=== PATIENT | female | born 1935 | race Caucasian/White ===

== ENCOUNTER 2016-09-14 11:23 | Inpatient (IN) | payer MEDICARE, OTHER ==
--- NOTE | 2016-09-14 12:15 | ER Document Report ---
ED General - General Stated Complaint: RESPIRATORY DISTRESS Mode of Arrival: Ambulatory Information source: Patient, Relative Notes: 81-year-old female presents with one week duration of productive cough and shortness of breath. Patient denies any other fevers or chills patient is a DO NOT RESUSCITATE TRAVEL OUTSIDE OF THE [place] IN LAST 30 DAYS: No - HPI Onset: Last week Onset/Duration: Persistent Quality of pain: Achy Severity: Mild Pain Level: 1 Associated symptoms: Productive cough, Shortness of breath Exacerbated by: Walking Relieved by: Denies Similar symptoms previously: No Recently seen / treated by doctor: No - Related Data Allergies/Adverse Reactions: No Known Allergies Allergy (Unverified 10/16/15 06:35) Past Medical History - Social History Smoking Status: Never Smoker Cigarette use (# per day): No Chew tobacco use (# tins/day): No Smoking Education Provided: No Family History: Reviewed & Not Pertinent - Past Medical History Cardiac Medical History: Reports: Hx Congestive Heart Failure Pulmonary Medical History: Reports: Hx COPD Endocrine Medical History: Reports: Hx Diabetes Mellitus Type 2 Malignancy Medical History: Reports: Hx Lung Cancer Past Surgical History: Reports: Hx Appendectomy, Hx Hysterectomy Review of Systems - Review of Systems Notes: REVIEW OF SYSTEMS: CONSTITUTIONAL : Denies fever, chills, or sweats. Denies recent illness. EENT: Denies eye, ear, throat, or mouth pain or symptoms. Denies nasal or sinus congestion or discharge. Denies throat, tongue, or mouth swelling or difficulty swallowing. CARDIOVASCULAR: Denies chest pain. Denies palpitations or racing or irregular heart beat. Denies ankle edema. RESPIRATORY: Admits to productive cough GASTROINTESTINAL: Denies abdominal pain or distention. Denies nausea, vomiting , or diarrhea. Denies blood in vomitus, stools, or per rectum. Denies black, tarry stools. Denies constipation. GENITOURINARY: Denies difficulty urinating, painful urination, burning, frequency, blood in urine, or discharge. FEMALE GENITOURINARY: Denies vaginal bleeding, heavy or abnormal periods, irregular periods. Denies vaginal discharge or odor. MUSCULOSKELETAL: Denies back or neck pain or stiffness. Denies joint pain or swelling. SKIN: Denies rash, lesions or sores. HEMATOLOGIC : Denies easy bruising or bleeding. LYMPHATIC: Denies swollen, enlarged glands. NEUROLOGICAL: Denies confusion or altered mental status. Denies passing out or loss of consciousness. Denies dizziness or lightheadedness. Denies headache. Denies weakness or paralysis or loss of use of either side. Denies problems with gait or speech. Denies sensory loss, numbness, or tingling. Denies seizures. PSYCHIATRIC: Denies anxiety or stress. Denies depression, suicidal ideation, or homicidal ideation. ALL OTHER SYSTEMS REVIEWED AND NEGATIVE. Dictation was performed using [employer] voice recognition software PHYSICAL EXAMINATION: GENERAL: Elderly coughing HEAD: Atraumatic, normocephalic. EYES: Pupils equal round and reactive to light, extraocular movements intact, conjunctiva are normal. ENT: Nares patent, oropharynx clear without exudates. Moist mucous membranes. NECK: Normal range of motion, supple without lymphadenopathy LUNGS: Coarse rhonchi all throughout HEART: Regular rate and rhythm without murmurs ABDOMEN: Soft, nontender, nondistended abdomen. No guarding, no rebound. No masses appreciated. Female : deferred Musculoskeletal: Normal range of motion, no pitting or edema. No cyanosis. NEUROLOGICAL: Cranial nerves grossly intact. Normal speech, normal gait. Normal sensory, motor exams PSYCH: Normal mood, normal affect. SKIN: Warm, Dry, normal turgor, no rashes or lesions noted. Physical Exam - Vital signs Vitals: Pulse Ox 97 09/14/16 11:35 Course - Re-evaluation Re-evalutation: 09/14/16 12:47xray does not notes pneumonia but patient symptomatically pneumonia , sepsis criteria 09/14/16 13:11 Antibiotics have been ordered patient will be admitted to hospital service - Vital Signs Vital signs: Temp Pulse Resp BP Pulse Ox 27 H 110/52 L 96 09/14/16 12:01 09/14/16 12:00 09/14/16 12:01 - Laboratory Result Diagrams: 09/14/16 12:00 09/14/16 12:00 Laboratory results interpreted by me: 09/14/16 09/14/16 09/14/16 12:00 12:00 12:00 WBC 17.1 H Hgb 11.0 L Hct 33.4 L MCV 74 L MCH 24.2 L RDW 18.1 H Seg Neuts % (Manual) 89 H Lymphocytes % (Manual) 7 L Abs Neuts (Manual) 15.2 H Sodium 136.7 L Chloride 97 L Glucose 232 H Total Bilirubin 1.8 H NT-Pro-B Natriuret Pep 2620 H Total Protein 5.6 L Albumin 3.0 L - Diagnostic Test Radiology reviewed: Image reviewed, Reports reviewed - EKG Interpretation by Me EKG shows normal: Sinus rhythm, [place], Intervals, QRS Complexes Rate: Tachycardia Critical Care Note - Critical Care Note Total time excluding time spent on procedures (mins): 33 Comments: minutes of critical care time spent in direct contact evaluating and reevaluating the patient, treating symptoms, reviewing labs and studies and speaking with family and consultants excluding any procedures Discharge - Discharge Clinical Impression: Shortness of breath Pneumonia Qualifiers: Pneumonia type: due to unspecified organism Laterality: bilateral Lung location : unspecified part of lung Qualified Code(s): J18.9 - Pneumonia, unspecified organism Sepsis Qualifiers: Sepsis type: sepsis due to unspecified organism Qualified Code(s): A41.9 - Sepsis, unspecified organism Condition: Stable Disposition: ADMITTED INPATIENT Admitting Provider: Hospitalist Unit Admitted: [facility]
[2016-09-14 12:26] LABS: HEMATOCRIT 33.4 % (36.0-47.0); HGB HCT DIFFERENCE -0.4; MEAN CORPUSCULAR HEMOGLOBIN 24.2 pg (27.0-33.4); MEAN CORPUSCULAR HGB CONC 32.9 g/dL (32.0-36.0); MEAN CORPUSCULAR VOLUME 74 fl (80-97); RED BLOOD COUNT 4.53 10^6/uL (3.72-5.28); RED CELL DISTRIBUTION WIDTH 18.1 % (11.5-14.0); WHITE BLOOD COUNT 17.1 10^3/uL (4.0-10.5)
[2016-09-14 12:35] LABS: ALANINE AMINOTRANSFERASE 28 U/L (9-52); ALKALINE PHOSPHATASE 86 U/L (38-126); ANION GAP 10 (5-19); ASPARTATE AMINO TRANSFERASE 18 U/L (14-36); BILIRUBIN,TOTAL 1.8 mg/dL (0.2-1.3); BLOOD UREA NITROGEN 19 mg/dL (7-20); CALCIUM 8.7 mg/dL (8.4-10.2); CARBON DIOXIDE 30 mmol/L (22-30); CHLORIDE 97 mmol/L (98-107); CREATINE KINASE 40 U/L (30-135); CREATININE RESULT 0.82 mg/dL (0.52-1.25); GLUCOSE 232 mg/dL (75-110); SODIUM 136.7 mmol/L (137-145); TOTAL PROTEIN 5.6 g/dL (6.3-8.2)
[2016-09-14] MEDS ORDERED: LEVOFLOXACIN 750 MG/D5W RTU 150 ML IV ONE (12:46)
[2016-09-14 12:47] LABS: CREATINE KINASE MB 2.1 ng/mL (<4.55); TROPONIN I 0.02 ng/mL
[2016-09-14] MEDS ORDERED: NORMAL SALINE 1000 ML 1,000 ML IV ONE (12:47)
--- NOTE | 2016-09-14 12:47 | EKG REPORT ---
SEVERITY:- BORDERLINE ECG - SINUS RHYTHM BORDERLINE RIGHT AXIS DEVIATION NONSPECIFIC ST-T CHANGES- ILATERAL LEADS : Confirmed by: Valerio Duarte MD 14-Sep-2016 12:46:32
[2016-09-14 12:49] LABS: ANISOCYTOSIS 2+; BASOPHILS % (MANUAL) 0 % (0-2); EOSINOPHILS % (MANUAL) 0 % (0-6); HYPOCHROMASIA SLIGHT; LYMPHOCYTES % (MANUAL) 7 % (13-45); MICROCYTOSIS 1+; TOTAL CELLS COUNTED 100; TOXIC GRANULATION 1+
[2016-09-14] MEDS ORDERED: IPRATROPIUM/ALBUTEROL 0.5-2.5 MG/3 ML AMPUL NEB ONE (13:10)
[2016-09-14 13:53] LABS: VENOUS BLOOD BASE EXCESS 3.5 mmol/L; VENOUS BLOOD HCO3 29.7 mmol/L (20-32); VENOUS BLOOD PCO2 52.8 mmHg (35-63); VENOUS BLOOD PH 7.37 (7.30-7.42)
[2016-09-14] MEDS ORDERED: LEVALBUTEROL HCL NEB 0.63 MG/3 ML AMPUL NEB PRN (16:38)
[2016-09-14] MEDS ORDERED: ONDANSETRON HCL 8 MG TABLET PO PRN (16:39)
[2016-09-14] MEDS ORDERED: ACETAMINOPHEN 325 MG TABLET PO PRN (16:39)
[2016-09-14] MEDS ORDERED: DEXTROSE 50%-WATER 25 GM/50 ML DISP.SYRIN IV PRN ×2 (16:41)
[2016-09-14] MEDS ORDERED: GLUCAGON,HUMAN RECOMB 1 MG INJ IM PRN (16:41)
[2016-09-14] MEDS ORDERED: DEXTROSE 40% GEL 15 GM TUBE PO PRN ×2 (16:41)
--- NOTE | 2016-09-14 16:46 | PDOC H&P ---
History of Present Illness Admission Date/PCP: 09/14/16 13:31 KD CISNEROS PA-C Patient complains of: Respiratory distress History of Present Illness: JATINDER RODRIGUEZ is a 81 year old female the past medical history of lung cancer that presented with one week duration of productive cough and shortness of breath. Patient denies any other fevers or chills patient is a DO NOT RESUSCITATE. Patient was found to have evidence of sepsis with white count, fever, tachypnea and evidence of a clinical pneumonia and therefore the patient was referred to the hospitalist remission and management. MEDICATIONS: The medications listed in this document may have been auto- populated from previous contact and may not been verified or reconciled. This may not be an accurate reflection of the patient's home medication(s); however, authors are unable to edit or delete the medications listed in this document as "home medications". Selected Entries 09/14/16 09/14/16 11:30 14:01 Temperature 99.2 F Respiratory 23 H Rate 09/14/16 12:00 WBC 17.1 H Past Medical History Cardiac Medical History: Reports: Congestive Heart Failure Pulmonary Medical History: Reports: Chronic Obstructive Pulmonary Disease (COPD) Endocrine Medical History: Reports: Diabetes Mellitus Type 2 Malignancy Medical History: Reports: Lung Cancer Past Surgical History Past Surgical History: Reports: Appendectomy, Hysterectomy Social History Information Source: Patient, Relative Occupation: Retired Lives with: Other - Assisted living Smoking Status: Never Smoker Frequency of Alcohol Use: None Hx Recreational Drug Use: No Drugs: None Hx Prescription Drug Abuse: No - Advance Directive Resuscitation Status: Do Not Resuscitate Surrogate healthcare decision maker:: Son Family History Family History: Reviewed & Not Pertinent, Malignancy Parental Family History Reviewed: Yes Children Family History Reviewed: Yes Sibling(s) Family History Reviewed.: Yes Medication/Allergy Home Medications: Acetaminophen [Tylenol] 650 mg PO Q4HP PRN 09/14/16 Albuterol Sulfate [Albuterol Sulfate 2.5mg/3 mL] 2.5 mg IH TID 09/14/16 Aspirin [Aspirin 81 mg Chewable Tablet] 81 mg PO DAILY 09/14/16 Atorvastatin Calcium 10 mg PO DAILY 09/14/16 Bisacodyl [Dulcolax 10 mg Supp.rect] 10 mg OR DAILYP PRN 09/14/16 Carvedilol [Coreg 3.125 mg Tablet] 3.125 mg PO Q12 09/14/16 Ergocalciferol (Vitamin D2) [Vitamin D2] 50,000 unit PO MO@1000 09/14/16 Furosemide [Lasix 20 mg Tablet] 20 mg PO DAILY 09/14/16 Guaifenesin 200 mg PO Q4HP PRN 09/14/16 Insulin Aspart Protam & Aspart [Novolog Mix 70-30 Vial] 20 units SQ ACSUPPER Insulin Aspart Protam & Aspart [Novolog Mix 70-30 Vial] 30 units SQ QAM Levofloxacin [Levaquin 500 mg Tablet] 500 mg PO DAILY 09/14/16 Levothyroxine Sodium [Synthroid 0.05 mg Tablet] 0.05 mg PO DAILY 09/14/16 Loperamide HCl [Imodium 2 mg Capsule] 4 mg PO PRN PRN MDD 16 MG/24 HOURS Lorazepam [Ativan 0.5 mg Tablet] 0.25 mg PO Q12HP PRN 09/14/16 Magnesium Chloride [Slow-Mag] 71.5 mg PO DAILY 09/14/16 Nystatin/Dexameth/Diphen [Magic Mouthwash] 5 ml PO ACHSP PRN 09/14/16 Omeprazole 20 mg PO DAILY 09/14/16 Ondansetron HCl [Zofran 8 mg Tablet] 8 mg PO Q8HP PRN 09/14/16 Prednisone 10 mg PO DAILY 09/14/16 Prednisone 20 mg PO DAILY 09/14/16 Sennosides [Senna] 2 tab PO DAILYP PRN 09/14/16 Sertraline HCl [Zoloft 50 mg Tablet] 50 mg PO QHS 09/14/16 Simethicone 80 mg PO Q6HP PRN 09/14/16 Sucralfate [Carafate 1 gm Tablet] 1 gm PO ACHS 09/14/16 Umeclidinium Brm/Vilanterol Tr [Anoro Ellipta 62.5-25 Mcg INH] 1 puff IH DAILY 09/14/16 Allergies/Adverse Reactions: No Known Allergies Allergy (Unverified 10/16/15 06:35) Review of Systems Constitutional: PRESENT: fatigue, fever(s), weakness. ABSENT: chills, headache( s), weight gain, weight loss Eyes: ABSENT: visual disturbances Ears: ABSENT: hearing changes Cardiovascular: ABSENT: chest pain, dyspnea on exertion, edema, orthropnea, palpitations Respiratory: PRESENT: cough, dyspnea, sputum. ABSENT: hemoptysis Gastrointestinal: ABSENT: abdominal pain, constipation, diarrhea, hematemesis, hematochezia, nausea, vomiting Genitourinary: ABSENT: dysuria, hematuria Musculoskeletal: ABSENT: joint swelling Integumentary: ABSENT: rash, wounds Neurological: ABSENT: abnormal gait, abnormal speech, confusion, dizziness, focal weakness, syncope Psychiatric: ABSENT: anxiety, depression, homidical ideation, suicidal ideation Endocrine: ABSENT: cold intolerance, heat intolerance, polydipsia, polyuria Hematologic/Lymphatic: ABSENT: easy bleeding, easy bruising Physical Exam Vital Signs: Temp Pulse Resp BP Pulse Ox 99.2 F 71 23 H 127/78 H 97 09/14/16 11:30 09/14/16 11:30 09/14/16 14:01 09/14/16 14:01 09/14/16 14:01 General appearance: PRESENT: no acute distress, cooperative, well-developed, well-nourished - Frail and chronically ill-appearing Head exam: PRESENT: atraumatic, normocephalic Eye exam: PRESENT: conjunctiva pink, EOMI, PERRLA. ABSENT: scleral icterus Ear exam: PRESENT: normal external ear exam Mouth exam: PRESENT: moist, tongue midline Neck exam: ABSENT: carotid bruit, JVD, lymphadenopathy, thyromegaly Respiratory exam: PRESENT: rhonchi. ABSENT: rales, wheezes Cardiovascular exam: PRESENT: RRR. ABSENT: diastolic murmur, rubs, systolic murmur Pulses: PRESENT: normal dorsalis pedis pul Vascular exam: PRESENT: normal capillary refill GI/Abdominal exam: PRESENT: normal bowel sounds, soft. ABSENT: distended, guarding, mass, organolmegaly, rebound, tenderness Rectal exam: PRESENT: deferred Extremities exam: PRESENT: full ROM. ABSENT: calf tenderness, clubbing, pedal edema Neurological exam: PRESENT: alert, awake, oriented to person, oriented to place , oriented to time, oriented to situation, CN II-XII grossly intact. ABSENT: motor sensory deficit Psychiatric exam: PRESENT: appropriate affect, normal mood. ABSENT: homicidal ideation, suicidal ideation Skin exam: PRESENT: dry, intact, warm. ABSENT: cyanosis, rash Results Laboratory Results: 09/14/16 13:40 VBG pH 7.37 VBG pCO2 52.8 VBG HCO3 29.7 VBG Base Excess 3.5 Impressions: Chest X-Ray 09/14/16 11:27 IMPRESSION: STABLE CHRONIC CHANGES ON THE LEFT. NO ACUTE RADIOGRAPHIC FINDING IN THE CHEST. Assessment & Plan - Diagnosis (1) Pneumonia Qualifiers: Pneumonia type: due to unspecified organism Laterality: bilateral Lung location: unspecified part of lung Qualified Code(s): J18.9 - Pneumonia , unspecified organism Is this a current diagnosis for this admission?: YesPlan: Will continue [place] Levaquin for now. Will obtain sputum specimen and follow. (2) Acute and chronic respiratory failure with hypoxia Is this a current diagnosis for this admission?: YesPlan: Continue supplemental O2 (3) Sepsis Qualifiers: Sepsis type: sepsis due to unspecified organism Qualified Code(s): A41.9 - Sepsis, unspecified organism Is this a current diagnosis for this admission?: YesPlan: No evidence of shock (4) History of lung cancer Is this a current diagnosis for this admission?: YesPlan: If the patient's symptoms do not improve significantly may re-stage. The patient has completed treatment and is not to follow-up with oncology for 3 months. Her oncologist is Dr. De La Cruz in [place]. (5) COPD exacerbation Is this a current diagnosis for this admission?: YesPlan: Will continue nebs for now (6) Do not resuscitate Is this a current diagnosis for this admission?: YesPlan: DNR/DNI (7) DVT prophylaxis Is this a current diagnosis for this admission?: YesPlan: Continue subcutaneous heparin - Time Time Spent with patient: on this followup including assessment, plan, physical examination, and patient education is 35 minutes. Time Spent: 50 to 70 Minutes Disposition: The patient is a DO NOT RESUSCITATE DO NOT INTUBATE. Pending patient's symptomatology and diagnostic findings will reevaluate as needed.
[2016-09-14] MEDS: HEPARIN SOD (PORCINE) 5,000 UNIT/ML 1 ML SYRINGE SUBCUT SCH ×2 (16:48→22:07)
[2016-09-14] MEDS: LEVALBUTEROL HCL NEB 1.25 MG/3 ML AMPUL NEB SCH (20:26)
[2016-09-14] MEDS: SERTRALINE HCL 50 MG TABLET PO SCH (22:06)
[2016-09-14] MEDS: CARVEDILOL 3.125 MG TABLET PO SCH (22:06)
[2016-09-14] MEDS: GUAIFENESIN 600 MG TABLET.SA PO SCH (22:07)
[2016-09-14] MEDS: INSULIN LISPRO 100 UNIT/ML 3 ML VIAL SUBCUT PRN (22:07)
[2016-09-15] MEDS: HEPARIN SOD (PORCINE) 5,000 UNIT/ML 1 ML SYRINGE SUBCUT SCH ×3 (05:18→21:03)
[2016-09-15 06:06] LABS: HEMATOCRIT 35.1 % (36.0-47.0); HEMOGLOBIN 11.3 g/dL (12.0-15.5); HGB HCT DIFFERENCE -1.2; MEAN CORPUSCULAR HEMOGLOBIN 23.7 pg (27.0-33.4); MEAN CORPUSCULAR HGB CONC 32.2 g/dL (32.0-36.0); MEAN CORPUSCULAR VOLUME 74 fl (80-97); RED BLOOD COUNT 4.77 10^6/uL (3.72-5.28); RED CELL DISTRIBUTION WIDTH 17.9 % (11.5-14.0); WHITE BLOOD COUNT 12.6 10^3/uL (4.0-10.5)
[2016-09-15 06:26] LABS: APPEARANCE,URINE SLIGHTLY-CLOUDY; BILIRUBIN,URINE NEGATIVE (NEGATIVE); GLUCOSE, URINE >=500 mg/dL (NEGATIVE); KETONES,URINE TRACE mg/dL (NEGATIVE); LEUKOCYTE ESTERASE,URINE NEGATIVE (NEGATIVE); NITRITE,URINE NEGATIVE (NEGATIVE); PROTEIN,URINE 30 mg/dL (NEGATIVE); URINE SPECIFIC GRAVITY 1.025; UROBILINOGEN,URINE NEGATIVE mg/dL (<2.0)
[2016-09-15] MEDS: INSULIN LISPRO 100 UNIT/ML 3 ML VIAL SUBCUT PRN ×3 (07:55→22:02)
[2016-09-15] MEDS: HUM INSULIN NPH/REG INSULIN HM 100 UNIT/1 ML 3 ML SUBCUT SCH ×2 (07:55→16:33)
[2016-09-15] MEDS ORDERED: INSULIN ASPART PROTAM SQ SCH ×2 (08:00→16:00)
[2016-09-15] MEDS ORDERED: ASPART SQ SCH ×2 (08:00→16:00)
[2016-09-15] MEDS ORDERED: [UNRECOGNIZED DRUG - OTHER] SQ SCH (08:00)
[2016-09-15] MEDS: LEVALBUTEROL HCL NEB 1.25 MG/3 ML AMPUL NEB SCH ×3 (08:10→19:31)
[2016-09-15] MEDS: CARVEDILOL 3.125 MG TABLET PO SCH ×2 (10:20→21:04)
[2016-09-15] MEDS: LANSOPRAZOLE 15 MG TAB.RAP.DR PO SCH (10:20)
[2016-09-15] MEDS: GUAIFENESIN 600 MG TABLET.SA PO SCH ×2 (10:20→21:04)
[2016-09-15] MEDS: LEVOTHYROXINE SODIUM 0.05 MG TABLET PO SCH (10:20)
[2016-09-15] MEDS: ASPIRIN 81 MG TABLET, CHEWABLE PO SCH (10:21)
[2016-09-15] MEDS: LEVOFLOXACIN 750 MG/D5W RTU 150 ML IV SCH (10:21)
[2016-09-15] MEDS: FUROSEMIDE 20 MG TABLET PO SCH (10:21)
--- NOTE | 2016-09-15 11:23 | PDOC PROGRESS REPORT ---
Subjective Progress Note for:: 09/15/16 Subjective:: The patient is currently lying in bed. Still admits to dyspnea at rest although the patient is able to fully complete sentences. The patient has had a strong cough and has been producing white sputum. The patient denies any nausea, vomiting, diarrhea, dizziness, chest pain, heart palpitations, fevers, or chills. The patient has remained afebrile. Blood pressures have been in a good range. The patient voices no other concerns at this time. Review of systems: The rest of the review of systems is negative. Physical Exam Vital Signs: Temp Pulse Resp BP Pulse Ox 97.6 F 74 16 134/51 H 92 09/15/16 07:23 09/15/16 08:12 09/15/16 08:12 09/15/16 07:23 09/15/16 08:12 Intake & Output 09/13/16 09/14/16 09/15/16 23:59 23:59 23:59 Intake Total 322 Output Total 300 Balance 22 Weight 64.8 kg 64.2 kg General appearance: PRESENT: no acute distress, cooperative, well-developed, well-nourished - Frail and chronically ill-appearing Head exam: PRESENT: atraumatic, normocephalic Eye exam: PRESENT: conjunctiva pink, EOMI, PERRLA. ABSENT: scleral icterus Ear exam: PRESENT: normal external ear exam Mouth exam: PRESENT: moist, tongue midline Neck exam: ABSENT: carotid bruit, JVD, lymphadenopathy, thyromegaly Respiratory exam: PRESENT: rhonchi, expiratory wheezes. ABSENT: rales, wheezes Cardiovascular exam: PRESENT: RRR. ABSENT: diastolic murmur, rubs, systolic murmur Pulses: PRESENT: normal dorsalis pedis pul Vascular exam: PRESENT: normal capillary refill GI/Abdominal exam: PRESENT: normal bowel sounds, soft. ABSENT: distended, guarding, mass, organolmegaly, rebound, tenderness Rectal exam: PRESENT: deferred Extremities exam: PRESENT: full ROM. ABSENT: calf tenderness, clubbing, pedal edema Neurological exam: PRESENT: alert, awake, oriented to person, oriented to place , oriented to time, oriented to situation, CN II-XII grossly intact. ABSENT: motor sensory deficit Psychiatric exam: PRESENT: appropriate affect, normal mood. ABSENT: homicidal ideation, suicidal ideation Skin exam: PRESENT: dry, intact, warm. ABSENT: cyanosis, rash Results Laboratory Results: 09/15/16 05:15 09/14/16 09/15/16 09/15/16 13:40 05:15 05:45 WBC 12.6 H RBC 4.77 Hgb 11.3 L Hct 35.1 L MCV 74 L MCH 23.7 L MCHC 32.2 RDW 17.9 H Plt Count 198 VBG pH 7.37 VBG pCO2 52.8 VBG HCO3 29.7 VBG Base Excess 3.5 Urine Color YELLOW Urine Appearance SLIGHTLY-CLOUDY Urine pH 5.0 Ur Specific [place] 1.025 Urine Protein 30 H Urine Glucose (UA) >=500 H Urine Ketones TRACE H Urine Blood NEGATIVE Urine Nitrite NEGATIVE Ur Leukocyte Esterase NEGATIVE Urine WBC (Auto) 1 Urine RBC (Auto) 1 Impressions: Chest X-Ray 09/14/16 11:27 IMPRESSION: STABLE CHRONIC CHANGES ON THE LEFT. NO ACUTE RADIOGRAPHIC FINDING IN THE CHEST. Assessment & Plan - Diagnosis (1) Pneumonia Qualifiers: Pneumonia type: due to unspecified organism Laterality: bilateral Lung location: unspecified part of lung Qualified Code(s): J18.9 - Pneumonia , unspecified organism Is this a current diagnosis for this admission?: YesPlan: Will continue Levaquin for now. Awaiting sputum specimen and follow. (2) Acute and chronic respiratory failure with hypoxia Is this a current diagnosis for this admission?: YesPlan: Continue supplemental O2 (3) Sepsis Qualifiers: Sepsis type: sepsis due to unspecified organism Qualified Code(s): A41.9 - Sepsis, unspecified organism Is this a current diagnosis for this admission?: YesPlan: No evidence of shock (4) History of lung cancer Is this a current diagnosis for this admission?: YesPlan: If the patient's symptoms do not improve significantly may re-stage. The patient has completed treatment and is not to follow-up with oncology for 3 months. Her oncologist is Dr. De La Cruz in [place]. (5) COPD exacerbation Is this a current diagnosis for this admission?: YesPlan: Will continue nebs for now. Given the patient's wheezing will add steroids. (6) Do not resuscitate Is this a current diagnosis for this admission?: YesPlan: DNR/DNI (7) DVT prophylaxis Is this a current diagnosis for this admission?: YesPlan: Continue subcutaneous heparin - Time Time Spent with patient: on this followup including assessment, plan, physical examination, and patient education is 25 minutes. Time Spent with patient: 25-34 minutes Anticipated discharge: Other Within: within 48 hours Disposition: The patient is a DO NOT RESUSCITATE DO NOT INTUBATE. Pending patient's symptomatology and diagnostic findings will reevaluate as needed.
[2016-09-15] MEDS ORDERED: METHYLPREDNISOLONE INJ 40 MG/1 ML SDV IV ONE (12:00)
[2016-09-15] MEDS ORDERED: [UNRECOGNIZED DRUG - OTHER] SQ SCH (16:00)
[2016-09-15] MEDS: LACTULOSE SYRUP 20 GM/30 ML UDCUP PO SCH ×3 (16:30→18:45)
[2016-09-15] MEDS ORDERED: METHYLPREDNISOLONE INJ 40 MG/1 ML SDV ONE (16:32)
[2016-09-15] MEDS: ATORVASTATIN CALCIUM 10 MG TABLET PO SCH (21:03)
[2016-09-15] MEDS: SERTRALINE HCL 50 MG TABLET PO SCH (21:04)
[2016-09-15] MEDS: METHYLPREDNISOLONE INJ 40 MG/1 ML SDV IV SCH (21:05)
[2016-09-15] MEDS: LORAZEPAM 0.5 MG TABLET PO PRN (22:03)
[2016-09-16] MEDS: BENZONATATE 100 MG CAPSULE PO PRN ×3 (01:19→17:45)
[2016-09-16] MEDS: METHYLPREDNISOLONE INJ 40 MG/1 ML SDV IV SCH ×3 (05:03→22:03)
[2016-09-16] MEDS: HEPARIN SOD (PORCINE) 5,000 UNIT/ML 1 ML SYRINGE SUBCUT SCH ×3 (05:03→21:56)
[2016-09-16] MEDS: LEVALBUTEROL HCL NEB 1.25 MG/3 ML AMPUL NEB SCH ×3 (08:17→20:40)
[2016-09-16] MEDS: LANSOPRAZOLE 15 MG TAB.RAP.DR PO SCH (08:33)
[2016-09-16] MEDS: FUROSEMIDE 20 MG TABLET PO SCH (08:33)
[2016-09-16] MEDS: GUAIFENESIN 600 MG TABLET.SA PO SCH ×2 (08:34→22:04)
[2016-09-16] MEDS: ASPIRIN 81 MG TABLET, CHEWABLE PO SCH (08:34)
[2016-09-16] MEDS: CARVEDILOL 3.125 MG TABLET PO SCH ×2 (08:34→22:04)
[2016-09-16] MEDS: LEVOTHYROXINE SODIUM 0.05 MG TABLET PO SCH (08:34)
[2016-09-16] MEDS: HUM INSULIN NPH/REG INSULIN HM 100 UNIT/1 ML 3 ML SUBCUT SCH ×2 (08:35→17:45)
[2016-09-16] MEDS: INSULIN LISPRO 100 UNIT/ML 3 ML VIAL SUBCUT PRN ×4 (08:35→22:00)
[2016-09-16] MEDS: LEVOFLOXACIN 750 MG/D5W RTU 150 ML IV SCH (08:35)
[2016-09-16] MEDS ORDERED: VANCOMYCIN HCL 0 MG in DEXTROSE 5%-WATER 250 ML IV NR (11:15)
--- NOTE | 2016-09-16 11:33 | PDOC PROGRESS REPORT ---
Subjective Progress Note for:: 09/16/16 Subjective:: The patient is currently lying in bed. The patient is dyspneic and not completely able to complete sentences. He does not appear any better than when she came in. The patient has had a strong cough and has been producing white sputum. Patient describes herself as feeling miserable. The patient denies any nausea, vomiting, diarrhea, dizziness, chest pain, heart palpitations, fevers, or chills. The patient has remained afebrile. Blood pressures have been in a good range. The patient voices no other concerns at this time. Review of systems: The rest of the review of systems is negative. Physical Exam Vital Signs: Temp Pulse Resp BP Pulse Ox 98.1 F 69 18 135/58 H 96 09/16/16 07:41 09/16/16 08:17 09/16/16 08:17 09/16/16 07:41 09/16/16 08:17 Intake & Output 09/14/16 09/15/16 09/16/16 23:59 23:59 23:59 Intake Total 1062 300 Output Total 300 300 Balance 762 0 Weight 64.8 kg 64.2 kg 64.3 kg General appearance: PRESENT: no acute distress, cooperative, well-developed, well-nourished - Frail and chronically ill-appearing Head exam: PRESENT: atraumatic, normocephalic Eye exam: PRESENT: conjunctiva pink, EOMI, PERRLA. ABSENT: scleral icterus Ear exam: PRESENT: normal external ear exam Mouth exam: PRESENT: moist, tongue midline Neck exam: ABSENT: carotid bruit, JVD, lymphadenopathy, thyromegaly Respiratory exam: PRESENT: rhonchi, expiratory wheezes. ABSENT: rales, wheezes Cardiovascular exam: PRESENT: RRR. ABSENT: diastolic murmur, rubs, systolic murmur Pulses: PRESENT: normal dorsalis pedis pul Vascular exam: PRESENT: normal capillary refill GI/Abdominal exam: PRESENT: normal bowel sounds, soft. ABSENT: distended, guarding, mass, organolmegaly, rebound, tenderness Rectal exam: PRESENT: deferred Extremities exam: PRESENT: full ROM. ABSENT: calf tenderness, clubbing, pedal edema Neurological exam: PRESENT: alert, awake, oriented to person, oriented to place , oriented to time, oriented to situation, CN II-XII grossly intact. ABSENT: motor sensory deficit Psychiatric exam: PRESENT: appropriate affect, normal mood. ABSENT: homicidal ideation, suicidal ideation Skin exam: PRESENT: dry, intact, warm. ABSENT: cyanosis, rash Results Laboratory Results: 09/15/16 05:15 Impressions: Chest X-Ray 09/14/16 11:27 IMPRESSION: STABLE CHRONIC CHANGES ON THE LEFT. NO ACUTE RADIOGRAPHIC FINDING IN THE CHEST. Assessment & Plan - Diagnosis (1) Pneumonia Qualifiers: Pneumonia type: due to unspecified organism Laterality: bilateral Lung location: unspecified part of lung Qualified Code(s): J18.9 - Pneumonia , unspecified organism Is this a current diagnosis for this admission?: YesPlan: Given the patient's persistent symptoms Will broaden antibiotic coverage the patient is at high risk given that she resides in a facility. Additionally the patient may have a postobstructive process given her lung cancer. Will restage the patient with chest CT and follow. (2) Acute and chronic respiratory failure with hypoxia Is this a current diagnosis for this admission?: YesPlan: Continue supplemental O2 (3) Sepsis Qualifiers: Sepsis type: sepsis due to unspecified organism Qualified Code(s): A41.9 - Sepsis, unspecified organism Is this a current diagnosis for this admission?: YesPlan: No evidence of shock (4) History of lung cancer Is this a current diagnosis for this admission?: YesPlan: The patient has completed treatment and is not to follow-up with oncology for 3 months. Her oncologist is Dr. De La Cruz in [place]. (5) COPD exacerbation Is this a current diagnosis for this admission?: YesPlan: Will continue nebs for now. Given the patient's wheezing will continue steroids. (6) Do not resuscitate Is this a current diagnosis for this admission?: YesPlan: DNR/DNI (7) DVT prophylaxis Is this a current diagnosis for this admission?: YesPlan: Continue subcutaneous heparin - Time Time Spent with patient: on this followup including assessment, plan, physical examination, and patient education is 25 minutes. Time Spent with patient: 25-34 minutes Medications reviewed and adjusted accordingly: Yes Anticipated discharge: Other Within: within 72 hours Disposition: The patient is a DO NOT RESUSCITATE DO NOT INTUBATE. Pending patient's symptomatology and diagnostic findings will reevaluate as needed.
[2016-09-16] MEDS: PIPERACILLIN SODIUM/TAZOBACTAM 4.5 GM in NORMAL SALINE 100 ML IV SCH ×3 (13:30→23:14)
[2016-09-16] MEDS: VANCOMYCIN HCL 1,000 MG in DEXTROSE 5%-WATER 250 ML IV SCH (18:45)
[2016-09-16] MEDS: ATORVASTATIN CALCIUM 10 MG TABLET PO SCH (22:04)
[2016-09-16] MEDS: SERTRALINE HCL 50 MG TABLET PO SCH (22:04)
[2016-09-17] MEDS: HEPARIN SOD (PORCINE) 5,000 UNIT/ML 1 ML SYRINGE SUBCUT SCH ×3 (05:17→21:22)
[2016-09-17] MEDS: METHYLPREDNISOLONE INJ 40 MG/1 ML SDV IV SCH (05:18)
[2016-09-17] MEDS: PIPERACILLIN SODIUM/TAZOBACTAM 4.5 GM in NORMAL SALINE 100 ML IV SCH ×4 (05:18→23:53)
[2016-09-17 05:48] LABS: HEMATOCRIT 34.2 % (36.0-47.0); HEMOGLOBIN 11.3 g/dL (12.0-15.5); HGB HCT DIFFERENCE -0.3; MEAN CORPUSCULAR HEMOGLOBIN 24.7 pg (27.0-33.4); MEAN CORPUSCULAR HGB CONC 32.9 g/dL (32.0-36.0); MEAN CORPUSCULAR VOLUME 75 fl (80-97); RED BLOOD COUNT 4.57 10^6/uL (3.72-5.28); RED CELL DISTRIBUTION WIDTH 17.5 % (11.5-14.0)
[2016-09-17 06:10] LABS: ANION GAP 10 (5-19); BLOOD UREA NITROGEN 27 mg/dL (7-20); CALCIUM 9.1 mg/dL (8.4-10.2); CARBON DIOXIDE 30 mmol/L (22-30); CHLORIDE 102 mmol/L (98-107); CREATININE RESULT 0.96 mg/dL (0.52-1.25); GLUCOSE 257 mg/dL (75-110); MAGNESIUM 2.2 mg/dL (1.6-2.3); POTASSIUM 4.5 mmol/L (3.6-5.0)
[2016-09-17] MEDS: LEVALBUTEROL HCL NEB 1.25 MG/3 ML AMPUL NEB SCH ×3 (08:02→21:49)
[2016-09-17] MEDS: ASPIRIN 81 MG TABLET, CHEWABLE PO SCH (09:56)
[2016-09-17] MEDS: CARVEDILOL 3.125 MG TABLET PO SCH ×2 (09:56→21:21)
[2016-09-17] MEDS: LEVOTHYROXINE SODIUM 0.05 MG TABLET PO SCH (09:56)
[2016-09-17] MEDS: FUROSEMIDE 20 MG TABLET PO SCH (09:57)
[2016-09-17] MEDS: GUAIFENESIN 600 MG TABLET.SA PO SCH ×2 (09:57→21:21)
[2016-09-17] MEDS: LANSOPRAZOLE 15 MG TAB.RAP.DR PO SCH (09:57)
[2016-09-17] MEDS: HUM INSULIN NPH/REG INSULIN HM 100 UNIT/1 ML 3 ML SUBCUT SCH ×2 (09:57→16:54)
[2016-09-17] MEDS: INSULIN LISPRO 100 UNIT/ML 3 ML VIAL SUBCUT PRN ×4 (09:58→21:28)
--- NOTE | 2016-09-17 13:35 | PDOC PROGRESS REPORT ---
Subjective Progress Note for:: 09/17/16 Subjective:: The patient is currently lying in bed. The patient is dyspneic and is now able to complete sentences. The patient states that she does feel better than when she came in. The patient has had a strong cough and has been producing white sputum. Overall minor improvements. The patient denies any nausea, vomiting, diarrhea, dizziness, chest pain, heart palpitations, fevers, or chills. The patient has remained afebrile. Blood pressures have been in a good range. The patient voices no other concerns at this time. Review of systems: The rest of the review of systems is negative. Physical Exam Vital Signs: Temp Pulse Resp BP Pulse Ox 97.4 F 65 18 155/63 H 96 09/17/16 07:33 09/17/16 08:02 09/17/16 08:02 09/17/16 07:33 09/17/16 08:02 Intake & Output 09/15/16 09/16/16 09/17/16 23:59 23:59 23:59 Intake Total 1062 2177 1131 Output Total 932 244 1283 Balance 762 1477 -269 Weight 64.2 kg 64.3 kg 65.2 kg General appearance: PRESENT: no acute distress, cooperative, well-developed, well-nourished - Frail and chronically ill-appearing Head exam: PRESENT: atraumatic, normocephalic Eye exam: PRESENT: conjunctiva pink, EOMI, PERRLA. ABSENT: scleral icterus Ear exam: PRESENT: normal external ear exam Mouth exam: PRESENT: moist, tongue midline Neck exam: ABSENT: carotid bruit, JVD, lymphadenopathy, thyromegaly Respiratory exam: PRESENT: rhonchi, expiratory wheezes. ABSENT: rales, wheezes Cardiovascular exam: PRESENT: RRR. ABSENT: diastolic murmur, rubs, systolic murmur Pulses: PRESENT: normal dorsalis pedis pul Vascular exam: PRESENT: normal capillary refill GI/Abdominal exam: PRESENT: normal bowel sounds, soft. ABSENT: distended, guarding, mass, organolmegaly, rebound, tenderness Rectal exam: PRESENT: deferred Extremities exam: PRESENT: full ROM. ABSENT: calf tenderness, clubbing, pedal edema Neurological exam: PRESENT: alert, awake, oriented to person, oriented to place , oriented to time, oriented to situation, CN II-XII grossly intact. ABSENT: motor sensory deficit Psychiatric exam: PRESENT: appropriate affect, normal mood. ABSENT: homicidal ideation, suicidal ideation Skin exam: PRESENT: dry, intact, warm. ABSENT: cyanosis, rash Results Laboratory Results: 09/17/16 04:54 09/17/16 04:54 09/17/16 09/17/16 04:54 04:54 WBC 11.0 H RBC 4.57 Hgb 11.3 L Hct 34.2 L MCV 75 L MCH 24.7 L MCHC 32.9 RDW 17.5 H Plt Count 227 Sodium 142.0 Potassium 4.5 Chloride 102 Carbon Dioxide 30 Anion Gap 10 BUN 27 H Creatinine 0.96 Est GFR ( Amer) > 60 Est GFR (Non-Af Amer) 56 L Glucose 257 H Calcium 9.1 Magnesium 2.2 09/15/16 05:38 Sputum Gram Stain - Final 09/15/16 05:38 Sputum Sputum Culture - Final NORMAL JEANNA Impressions: Chest CT 09/16/16 00:00 IMPRESSION: STABLE ATELECTATIC CHANGE/ SCARRING INVOLVING THE LEFT HILUM/ LUNG PRESUMABLY REPRESENTS POST TREATMENT CHANGE FOR LUNG MALIGNANCY. THERE HAS BEEN SLIGHT INTERVAL INCREASE IN SIZE OF PATIENT'S SMALL LEFT PLEURAL EFFUSION. INTERVAL IMPROVEMENT OF RIGHT-SIDED PULMONARY NODULES MAY REPRESENT RESOLVING INFECTIOUS/ INFLAMMATORY PROCESS OR RESPONSE OF METASTATIC DISEASE TO THERAPY. CORRELATE CLINICALLY. Chest X-Ray 09/17/16 06:00 IMPRESSION: INCREASED VOLUME LOSS ON THE LEFT WITH INCREASED AIRSPACE OPACITY LEFT LUNG BASE SUGGESTIVE OF ATELECTATIC LUNG. Assessment & Plan - Diagnosis (1) Pneumonia Qualifiers: Pneumonia type: due to unspecified organism Laterality: bilateral Lung location: unspecified part of lung Qualified Code(s): J18.9 - Pneumonia , unspecified organism Is this a current diagnosis for this admission?: YesPlan: Given the patient's persistent symptoms broadened antibiotic coverage given the patient is at high risk due to residing in a facility. Additionally the patient may have a postobstructive process given her lung cancer. Repeat chest CT appears stable. (2) Acute and chronic respiratory failure with hypoxia Is this a current diagnosis for this admission?: YesPlan: Continue supplemental O2 (3) Sepsis Qualifiers: Sepsis type: sepsis due to unspecified organism Qualified Code(s): A41.9 - Sepsis, unspecified organism Is this a current diagnosis for this admission?: YesPlan: No evidence of shock (4) History of lung cancer Is this a current diagnosis for this admission?: YesPlan: The patient has completed treatment and is to follow-up with oncology for 3 months. Her oncologist is Dr. De La Cruz in [place]. (5) COPD exacerbation Is this a current diagnosis for this admission?: YesPlan: Will continue nebs for now. Given the patient's wheezing will continue steroids will begin to taper. (6) Do not resuscitate Is this a current diagnosis for this admission?: YesPlan: DNR/DNI (7) DVT prophylaxis Is this a current diagnosis for this admission?: YesPlan: Continue subcutaneous heparin - Time Time Spent with patient: on this followup including assessment, plan, physical examination, and patient education is 25 minutes. Time Spent with patient: 25-34 minutes Medications reviewed and adjusted accordingly: Yes Anticipated discharge: Home Within: within 24 hours Disposition: The patient is a DO NOT RESUSCITATE DO NOT INTUBATE. Pending patient's symptomatology and diagnostic findings will reevaluate as needed.
[2016-09-17] MEDS: PREDNISONE 20 MG TABLET PO SCH (17:20)
[2016-09-17] MEDS: VANCOMYCIN HCL 1,000 MG in DEXTROSE 5%-WATER 250 ML IV SCH (18:16)
[2016-09-17] MEDS: SERTRALINE HCL 50 MG TABLET PO SCH (21:21)
[2016-09-17] MEDS: ATORVASTATIN CALCIUM 10 MG TABLET PO SCH (21:22)
[2016-09-18] MEDS: HEPARIN SOD (PORCINE) 5,000 UNIT/ML 1 ML SYRINGE SUBCUT SCH ×3 (06:16→22:02)
[2016-09-18] MEDS: BENZONATATE 100 MG CAPSULE PO PRN (06:16)
[2016-09-18] MEDS: PIPERACILLIN SODIUM/TAZOBACTAM 4.5 GM in NORMAL SALINE 100 ML IV SCH ×4 (06:18→23:27)
[2016-09-18] MEDS: HUM INSULIN NPH/REG INSULIN HM 100 UNIT/1 ML 3 ML SUBCUT SCH ×2 (07:52→16:36)
[2016-09-18] MEDS: LEVALBUTEROL HCL NEB 1.25 MG/3 ML AMPUL NEB SCH ×3 (08:46→19:42)
[2016-09-18] MEDS: LEVOTHYROXINE SODIUM 0.05 MG TABLET PO SCH (09:23)
[2016-09-18] MEDS: PREDNISONE 20 MG TABLET PO SCH ×2 (09:23→17:09)
[2016-09-18] MEDS: ASPIRIN 81 MG TABLET, CHEWABLE PO SCH (09:24)
[2016-09-18] MEDS: CARVEDILOL 3.125 MG TABLET PO SCH ×2 (09:24→22:01)
[2016-09-18] MEDS: LANSOPRAZOLE 15 MG TAB.RAP.DR PO SCH (09:24)
[2016-09-18] MEDS: GUAIFENESIN 600 MG TABLET.SA PO SCH ×2 (09:24→21:59)
[2016-09-18] MEDS: FUROSEMIDE 20 MG TABLET PO SCH (09:25)
[2016-09-18] MEDS ORDERED: ERGOCALCIFEROL (VITAMIN D2) 50000 UNIT (1.25 MG) CAPSULE PO SCH ×2 (10:00)
--- NOTE | 2016-09-18 10:57 | PDOC PROGRESS REPORT ---
Subjective Progress Note for:: 09/18/16 Subjective:: The patient is currently lying in bed. Overall the patient's symptoms have improved in comparison to yesterday. Dyspnea is limited only to activity. The patient denies any nausea, vomiting, diarrhea, dizziness, chest pain, heart palpitations, fevers, or chills. The patient is still coughing up copious amounts of sputum. The patient has remained afebrile. Blood pressures have been in a good range. The patient voices no other concerns at this time. Review of systems: The rest of the review of systems is negative. Physical Exam Vital Signs: Temp Pulse Resp BP Pulse Ox 97.7 F 71 16 147/44 H 96 09/18/16 07:39 09/18/16 08:46 09/18/16 08:46 09/18/16 07:39 09/18/16 08:46 Intake & Output 09/16/16 09/17/16 09/18/16 23:59 23:59 23:59 Intake Total 2177 2113 665 Output Total 700 1950 350 Balance 1477 163 315 Weight 64.3 kg 65.2 kg 62.2 kg General appearance: PRESENT: no acute distress, cooperative, well-developed, well-nourished - Frail and chronically ill-appearing Head exam: PRESENT: atraumatic, normocephalic Eye exam: PRESENT: conjunctiva pink, EOMI, PERRLA. ABSENT: scleral icterus Ear exam: PRESENT: normal external ear exam Mouth exam: PRESENT: moist, tongue midline Neck exam: ABSENT: carotid bruit, JVD, lymphadenopathy, thyromegaly Respiratory exam: PRESENT: rhonchi, expiratory wheezes both have improved. ABSENT: rales, wheezes Cardiovascular exam: PRESENT: RRR. ABSENT: diastolic murmur, rubs, systolic murmur Pulses: PRESENT: normal dorsalis pedis pul Vascular exam: PRESENT: normal capillary refill GI/Abdominal exam: PRESENT: normal bowel sounds, soft. ABSENT: distended, guarding, mass, organolmegaly, rebound, tenderness Rectal exam: PRESENT: deferred Extremities exam: PRESENT: full ROM. ABSENT: calf tenderness, clubbing, pedal edema Neurological exam: PRESENT: alert, awake, oriented to person, oriented to place , oriented to time, oriented to situation, CN II-XII grossly intact. ABSENT: motor sensory deficit Psychiatric exam: PRESENT: appropriate affect, normal mood. ABSENT: homicidal ideation, suicidal ideation Skin exam: PRESENT: dry, intact, warm. ABSENT: cyanosis, rash Results Laboratory Results: 09/17/16 04:54 09/17/16 04:54 09/15/16 05:38 Sputum Gram Stain - Final 09/15/16 05:38 Sputum Sputum Culture - Final NORMAL JEANNA Impressions: Chest CT 09/16/16 00:00 IMPRESSION: STABLE ATELECTATIC CHANGE/ SCARRING INVOLVING THE LEFT HILUM/ LUNG PRESUMABLY REPRESENTS POST TREATMENT CHANGE FOR LUNG MALIGNANCY. THERE HAS BEEN SLIGHT INTERVAL INCREASE IN SIZE OF PATIENT'S SMALL LEFT PLEURAL EFFUSION. INTERVAL IMPROVEMENT OF RIGHT-SIDED PULMONARY NODULES MAY REPRESENT RESOLVING INFECTIOUS/ INFLAMMATORY PROCESS OR RESPONSE OF METASTATIC DISEASE TO THERAPY. CORRELATE CLINICALLY. Chest X-Ray 09/17/16 06:00 IMPRESSION: INCREASED VOLUME LOSS ON THE LEFT WITH INCREASED AIRSPACE OPACITY LEFT LUNG BASE SUGGESTIVE OF ATELECTATIC LUNG. Assessment & Plan - Diagnosis (1) Pneumonia Qualifiers: Pneumonia type: due to unspecified organism Laterality: bilateral Lung location: unspecified part of lung Qualified Code(s): J18.9 - Pneumonia, unspecified organism Is this a current diagnosis for this admission?: YesPlan: Overall the symptoms have improved but only after the expansion of antibiotic coverage. Will give yet another 24 hours of current IV antibiotic coverage. The patient resides in a facility and is at high risk given a potential postobstructive process as well. The patient's sputum specimen was unremarkable however she had received antibiotics prior to this being obtained. 09/14/16 13:32 Oxygen Nasal Cannula 2 lpm 09/14/16 16:39 Nebulizer Therapy Routine [RESPCARE] [id number] 09/14/16 16:41 Benzonatate [Tessalon Perles 100 mg Capsule] 100 mg PO Q8HP PRN PEP Device(PositiveExpiratory) [RESPCARE] [id number] 09/14/16 22:00 Guaifenesin [Mucinex Sr 600 mg Tablet.sa] 1,200 mg PO Q12 09/16/16 12:00 Piperacillin Sodium/Tazobactam [Zosyn Inj 4.5 gm Vial] 4.5 gm Normal Saline [ NaCl 0.9% 100 ml IV Soln] 100 ml IV Q6 09/16/16 18:00 Vancomycin HCl [Vancocin Inj 1000 mg Vial] 1,000 mg Dextrose 5%-Water [D5w 250 ml IV Soln] 250 ml IV QPM (2) Acute and chronic respiratory failure with hypoxia Is this a current diagnosis for this admission?: YesPlan: Continue supplemental O2 09/18/16 10:48 Prednisone [Deltasone 20 mg Tablet] 20 mg PO BID 09/14/16 16:38 Levalbuterol HCl [Xopenex Neb 0.63 mg/3 ml Ampul] 0.63 mg NEB [id number] PRN 09/14/16 20:00 Levalbuterol HCl [Xopenex Neb 1.25 mg/3 ml Ampul] 1.25 mg NEB [id number] (3) Sepsis Qualifiers: Sepsis type: sepsis due to unspecified organism Qualified Code(s): A41.9 - Sepsis, unspecified organism Is this a current diagnosis for this admission?: YesPlan: No evidence of shock Selected Entries 09/18/16 07:39 Blood Pressure 147/44 H 09/14/16 09/17/16 12:00 04:54 WBC 17.1 H 11.0 H (4) History of lung cancer Is this a current diagnosis for this admission?: YesPlan: The patient has completed treatment and is to follow-up with oncology for 3 months. Her oncologist is Dr. De La Cruz in [place]. (5) COPD exacerbation Is this a current diagnosis for this admission?: YesPlan: Will continue nebs for now. Wheezing has improved will continue to taper steroids. (6) Hypothyroidism Qualifiers: Hypothyroidism type: unspecified Qualified Code(s): E03.9 - Hypothyroidism, unspecified Is this a current diagnosis for this admission?: YesPlan: Will continue 09/15/16 10:00 Levothyroxine Sodium [Synthroid 0.05 mg Tablet] 0.05 mg PO DAILY (7) Diabetes mellitus type II, controlled, with no complications Qualifiers: Diabetes mellitus nursing home insulin use: with nursing home use Qualified Code(s): E11.9 - Type 2 diabetes mellitus without complications; Z79.4 - snf (current) use of insulin Is this a current diagnosis for this admission?: YesPlan: Blood sugars have been somewhat elevated given the patient's steroids. Will continue sliding-scale coverage. I'm hesitant to increase the patient's basal dose given her lunch awaiting appetite at this time. 09/14/16 16:41 Insulin Lispro [Humalog Insulin 100 Unit/1 ml 3 ml Vial] 0 - 12 unit SUBCUT ACHSP PRN AccuCheck [RC] ACHS 09/15/16 08:00 Hum Insulin NPH/Reg Insulin Hm [Insulin Inj 70-30 (100 Unit/1 ml) 3 ml Vial] 30 unit SUBCUT QAM 09/15/16 16:00 Hum Insulin NPH/Reg Insulin Hm [Insulin Inj 70-30 (100 Unit/1 ml) 3 ml Vial] 20 unit SUBCUT ACSUPPER (8) Coronary artery disease Qualifiers: Coronary Disease-Associated Artery/Lesion type: [place] artery [place] vs. transplanted heart: [place] heart Associated angina: without angina Qualified Code(s): I25.10 - Atherosclerotic heart disease of [place] coronary artery without angina pectoris Is this a current diagnosis for this admission?: YesPlan: My home meds. 09/14/16 22:00 Carvedilol [Coreg 3.125 mg Tablet] 3.125 mg PO Q12 09/15/16 10:00 Aspirin [Aspirin 81 mg Chewable Tablet] 81 mg PO DAILY Furosemide [Lasix 20 mg Tablet] 20 mg PO DAILY 09/15/16 22:00 Atorvastatin Calcium [Lipitor 10 mg Tablet] 10 mg PO QHS (9) DVT prophylaxis Is this a current diagnosis for this admission?: YesPlan: Continue subcutaneous heparin Selected Entries 09/14/16 14:00 Heparin Sodium,Porcine [Heparin Inj 5,000 Units/ml 1 ml Syringe] 5,000 unit SUBCUT Q8 (10) Do not resuscitate Is this a current diagnosis for this admission?: YesPlan: DNR/DNI - Time Time Spent with patient: on this followup including assessment, plan, physical examination, and patient education is 25 minutes. Time Spent with patient: 25-34 minutes Medications reviewed and adjusted accordingly: Yes Anticipated discharge: SNF Within: within 24 hours Disposition: The patient is a DO NOT RESUSCITATE DO NOT INTUBATE. Pending patient's symptomatology and diagnostic findings will reevaluate as needed. The patient can be downgraded to a medical bed.
[2016-09-18] MEDS: INSULIN LISPRO 100 UNIT/ML 3 ML VIAL SUBCUT PRN ×3 (12:46→22:06)
[2016-09-18] MEDS: VANCOMYCIN HCL 1,000 MG in DEXTROSE 5%-WATER 250 ML IV SCH (17:06)
[2016-09-18] MEDS: SERTRALINE HCL 50 MG TABLET PO SCH (21:59)
[2016-09-18] MEDS: ATORVASTATIN CALCIUM 10 MG TABLET PO SCH (21:59)
[2016-09-19] MEDS: PIPERACILLIN SODIUM/TAZOBACTAM 4.5 GM in NORMAL SALINE 100 ML IV SCH ×4 (05:53→23:29)
[2016-09-19] MEDS: HEPARIN SOD (PORCINE) 5,000 UNIT/ML 1 ML SYRINGE SUBCUT SCH ×3 (05:54→21:14)
[2016-09-19 06:05] LABS: HEMATOCRIT 34.8 % (36.0-47.0); HEMOGLOBIN 11.5 g/dL (12.0-15.5); HGB HCT DIFFERENCE -0.3; MEAN CORPUSCULAR HEMOGLOBIN 24.5 pg (27.0-33.4); MEAN CORPUSCULAR VOLUME 74 fl (80-97); RED BLOOD COUNT 4.69 10^6/uL (3.72-5.28); WHITE BLOOD COUNT 10.2 10^3/uL (4.0-10.5)
[2016-09-19 06:21] LABS: ANION GAP 9 (5-19); BLOOD UREA NITROGEN 23 mg/dL (7-20); CALCIUM 8.2 mg/dL (8.4-10.2); CARBON DIOXIDE 30 mmol/L (22-30); CHLORIDE 102 mmol/L (98-107); CREATININE RESULT 0.94 mg/dL (0.52-1.25); GLUCOSE 229 mg/dL (75-110); MAGNESIUM 2.1 mg/dL (1.6-2.3); POTASSIUM 3.7 mmol/L (3.6-5.0); SODIUM 141.3 mmol/L (137-145)
[2016-09-19] MEDS: HUM INSULIN NPH/REG INSULIN HM 100 UNIT/1 ML 3 ML SUBCUT SCH ×2 (08:25→16:44)
[2016-09-19] MEDS: INSULIN LISPRO 100 UNIT/ML 3 ML VIAL SUBCUT PRN ×2 (08:27→21:14)
[2016-09-19] MEDS: LEVALBUTEROL HCL NEB 1.25 MG/3 ML AMPUL NEB SCH ×3 (08:28→19:57)
[2016-09-19] MEDS: LEVOTHYROXINE SODIUM 0.05 MG TABLET PO SCH (09:30)
[2016-09-19] MEDS: ASPIRIN 81 MG TABLET, CHEWABLE PO SCH (09:30)
[2016-09-19] MEDS: CARVEDILOL 3.125 MG TABLET PO SCH ×2 (09:31→21:14)
[2016-09-19] MEDS: GUAIFENESIN 600 MG TABLET.SA PO SCH ×2 (09:31→21:14)
[2016-09-19] MEDS: FUROSEMIDE 20 MG TABLET PO SCH (09:31)
[2016-09-19] MEDS: PREDNISONE 20 MG TABLET PO SCH ×2 (09:31→17:50)
[2016-09-19] MEDS: LANSOPRAZOLE 15 MG TAB.RAP.DR PO SCH (09:31)
--- NOTE | 2016-09-19 13:50 | PDOC PROGRESS REPORT ---
Subjective Progress Note for:: 09/19/16 Subjective:: Patient is complaining of shortness of breath today And indeed she is wheezing quite a lot No chest pain or palpitations On the monitor she is in sinus rhythm Physical Exam Vital Signs: Temp Pulse Resp BP Pulse Ox 97.7 F 67 16 130/50 H 96 09/19/16 12:06 09/19/16 12:06 09/19/16 12:06 09/19/16 12:06 09/19/16 12:06 Intake & Output 09/18/16 09/19/16 09/20/16 00:59 00:59 00:59 Intake Total 1651 1473 306 Output Total 1350 1272 500 Balance 301 201 -194 Weight 65.2 kg 62.2 kg 66.7 kg General appearance: PRESENT: mild distress, thin, other - She looks chronically ill frail Head exam: PRESENT: atraumatic, normocephalic Eye exam: PRESENT: conjunctiva pink, EOMI, PERRLA. ABSENT: scleral icterus Neck exam: ABSENT: carotid bruit, JVD, lymphadenopathy, thyromegaly Respiratory exam: PRESENT: wheezes - Bilaterally. ABSENT: accessory muscle use , rales, retraction, rhonchi Cardiovascular exam: PRESENT: RRR. ABSENT: diastolic murmur, rubs, systolic murmur Pulses: PRESENT: normal dorsalis pedis pul GI/Abdominal exam: PRESENT: normal bowel sounds, soft. ABSENT: distended, guarding, mass, organolmegaly, rebound, tenderness Extremities exam: PRESENT: full ROM. ABSENT: calf tenderness, clubbing, pedal edema Neurological exam: PRESENT: alert, awake, oriented to person, oriented to place , oriented to time, oriented to situation, CN II-XII grossly intact. ABSENT: motor sensory deficit Skin exam: PRESENT: dry, intact, warm. ABSENT: cyanosis, rash Results Laboratory Results: 09/19/16 04:54 09/19/16 04:54 09/19/16 09/19/16 04:54 04:54 WBC 10.2 RBC 4.69 Hgb 11.5 L Hct 34.8 L MCV 74 L MCH 24.5 L MCHC 33.0 RDW 18.0 H Plt Count 230 Sodium 141.3 Potassium 3.7 Chloride 102 Carbon Dioxide 30 Anion Gap 9 BUN 23 H Creatinine 0.94 Est GFR ( Amer) > 60 Est GFR (Non-Af Amer) 57 L Glucose 229 H Calcium 8.2 L Magnesium 2.1 Impressions: Chest CT 09/16/16 00:00 IMPRESSION: STABLE ATELECTATIC CHANGE/ SCARRING INVOLVING THE LEFT HILUM/ LUNG PRESUMABLY REPRESENTS POST TREATMENT CHANGE FOR LUNG MALIGNANCY. THERE HAS BEEN SLIGHT INTERVAL INCREASE IN SIZE OF PATIENT'S SMALL LEFT PLEURAL EFFUSION. INTERVAL IMPROVEMENT OF RIGHT-SIDED PULMONARY NODULES MAY REPRESENT RESOLVING INFECTIOUS/ INFLAMMATORY PROCESS OR RESPONSE OF METASTATIC DISEASE TO THERAPY. CORRELATE CLINICALLY. Chest X-Ray 09/17/16 06:00 IMPRESSION: INCREASED VOLUME LOSS ON THE LEFT WITH INCREASED AIRSPACE OPACITY LEFT LUNG BASE SUGGESTIVE OF ATELECTATIC LUNG. Assessment & Plan - Diagnosis (1) Acute and chronic respiratory failure with hypoxia Is this a current diagnosis for this admission?: Yes (2) Coronary artery disease Qualifiers: Coronary Disease-Associated Artery/Lesion type: [place] artery [place] vs. transplanted heart: [place] heart Associated angina: without angina Qualified Code(s): I25.10 - Atherosclerotic heart disease of [place] coronary artery without angina pectoris Is this a current diagnosis for this admission?: Yes (3) DVT prophylaxis Is this a current diagnosis for this admission?: Yes (4) Do not resuscitate Is this a current diagnosis for this admission?: Yes (5) History of lung cancer Is this a current diagnosis for this admission?: Yes (6) Pneumonia Qualifiers: Pneumonia type: due to unspecified organism Laterality: bilateral Lung location: unspecified part of lung Qualified Code(s): J18.9 - Pneumonia, unspecified organism Is this a current diagnosis for this admission?: Yes (7) Sepsis Qualifiers: Sepsis type: sepsis due to unspecified organism Qualified Code(s): A41.9 - Sepsis, unspecified organism Is this a current diagnosis for this admission?: Yes (8) COPD exacerbation Is this a current diagnosis for this admission?: Yes - Time Time Spent with patient: Patient still has significant wheezing This may be secondary to COPD exacerbation and pneumonia Patient may have acute on chronic diastolic CHF And be fluid overloaded; we will obtain a BNP We will give the patient 20 mg IV Lasix every 12 And reevaluate needs Continue steroids nebs antibiotics We will attempt physical therapy and a.m. Patient will be discharged back to assisted living when her condition improves Time Spent with patient: 25-34 minutes
[2016-09-19] MEDS: LORAZEPAM 0.5 MG TABLET PO PRN (15:10)
[2016-09-19] MEDS: VANCOMYCIN HCL 1,000 MG in DEXTROSE 5%-WATER 250 ML IV SCH (17:50)
[2016-09-19] MEDS: FUROSEMIDE INJ/PF 20 MG/2 ML SDV IV SCH (17:50)
[2016-09-19] MEDS ORDERED: FUROSEMIDE INJ/PF 20 MG/2 ML SDV IV SCH (18:00)
[2016-09-19 18:15] LABS: CREATININE RESULT 1.09 mg/dL (0.52-1.25)
[2016-09-19 18:25] LABS: TROUGH DRAW TIME 1735
[2016-09-19] MEDS: ATORVASTATIN CALCIUM 10 MG TABLET PO SCH (21:12)
[2016-09-19] MEDS: SERTRALINE HCL 50 MG TABLET PO SCH (21:14)
[2016-09-20] MEDS: HEPARIN SOD (PORCINE) 5,000 UNIT/ML 1 ML SYRINGE SUBCUT SCH ×3 (05:20→21:14)
[2016-09-20] MEDS: PIPERACILLIN SODIUM/TAZOBACTAM 4.5 GM in NORMAL SALINE 100 ML IV SCH ×4 (05:20→23:33)
[2016-09-20] MEDS: FUROSEMIDE INJ/PF 20 MG/2 ML SDV IV SCH ×2 (05:21→17:22)
[2016-09-20] MEDS: HUM INSULIN NPH/REG INSULIN HM 100 UNIT/1 ML 3 ML SUBCUT SCH ×2 (08:09→16:49)
[2016-09-20] MEDS: INSULIN LISPRO 100 UNIT/ML 3 ML VIAL SUBCUT PRN ×4 (08:10→21:14)
[2016-09-20] MEDS: LEVALBUTEROL HCL NEB 1.25 MG/3 ML AMPUL NEB SCH ×3 (09:16→19:30)
[2016-09-20] MEDS: LANSOPRAZOLE 15 MG TAB.RAP.DR PO SCH (09:18)
[2016-09-20] MEDS: GUAIFENESIN 600 MG TABLET.SA PO SCH ×2 (09:18→21:14)
[2016-09-20] MEDS: ASPIRIN 81 MG TABLET, CHEWABLE PO SCH (09:18)
[2016-09-20] MEDS: CARVEDILOL 3.125 MG TABLET PO SCH ×2 (09:19→21:17)
[2016-09-20] MEDS: PREDNISONE 20 MG TABLET PO SCH ×2 (09:19→17:21)
[2016-09-20] MEDS: LEVOTHYROXINE SODIUM 0.05 MG TABLET PO SCH (09:19)
--- NOTE | 2016-09-20 10:48 | PDOC PROGRESS REPORT ---
Subjective Progress Note for:: 09/20/16 Subjective:: Patient a breathing is adequate and she is oxygenating adequately on the nasal cannula She still is very "congested" with a lot of bronchial secretions such doesn't appear to be clearing She is no chest pain She is alert and awake and anxious to go back to the assisted living Physical Exam Vital Signs: Temp Pulse Resp BP Pulse Ox 97.6 F 66 18 113/51 L 100 09/20/16 08:35 09/20/16 09:16 09/20/16 09:16 09/20/16 08:35 09/20/16 08:35 Intake & Output 09/19/16 09/20/16 09/21/16 00:59 00:59 00:59 Intake Total 1473 1166 605 Output Total 1272 900 Balance 201 266 605 Weight 62.2 kg 64 kg 64 kg General appearance: PRESENT: no acute distress, thin Head exam: PRESENT: atraumatic, normocephalic Eye exam: PRESENT: conjunctiva pink, EOMI, PERRLA. ABSENT: scleral icterus Neck exam: ABSENT: carotid bruit, JVD, lymphadenopathy, thyromegaly Respiratory exam: PRESENT: clear to auscultation yaya, rhonchi. ABSENT: rales, wheezes Cardiovascular exam: PRESENT: RRR. ABSENT: diastolic murmur, rubs, systolic murmur GI/Abdominal exam: PRESENT: normal bowel sounds, soft. ABSENT: distended, guarding, mass, organolmegaly, rebound, tenderness Neurological exam: PRESENT: alert, awake, oriented to person, oriented to place , oriented to time, oriented to situation, CN II-XII grossly intact. ABSENT: motor sensory deficit Results Laboratory Results: 09/19/16 04:54 09/19/16 17:35 09/19/16 17:35 Creatinine 1.09 Est GFR ( Amer) 58 L Est GFR (Non-Af Amer) 48 L 09/14/16 13:40 Blood Blood Culture - Final NO GROWTH IN 5 DAYS 09/19/16 04:54 NT-Pro-B Natriuret Pep 1850 H Impressions: Chest CT 09/16/16 00:00 IMPRESSION: STABLE ATELECTATIC CHANGE/ SCARRING INVOLVING THE LEFT HILUM/ LUNG PRESUMABLY REPRESENTS POST TREATMENT CHANGE FOR LUNG MALIGNANCY. THERE HAS BEEN SLIGHT INTERVAL INCREASE IN SIZE OF PATIENT'S SMALL LEFT PLEURAL EFFUSION. INTERVAL IMPROVEMENT OF RIGHT-SIDED PULMONARY NODULES MAY REPRESENT RESOLVING INFECTIOUS/ INFLAMMATORY PROCESS OR RESPONSE OF METASTATIC DISEASE TO THERAPY. CORRELATE CLINICALLY. Chest X-Ray 09/17/16 06:00 IMPRESSION: INCREASED VOLUME LOSS ON THE LEFT WITH INCREASED AIRSPACE OPACITY LEFT LUNG BASE SUGGESTIVE OF ATELECTATIC LUNG. Assessment & Plan - Diagnosis (1) Acute and chronic respiratory failure with hypoxia Is this a current diagnosis for this admission?: YesPlan: Likely to be secondary to chronic COPD associated with pneumonia and acute on chronic diastolic CHF Patient does have an elevated BNP and may improve with continued diuresis Continue O2 supplementation Continue steroids and nebs antibiotics Continue Lasix IV (2) Coronary artery disease Qualifiers: Coronary Disease-Associated Artery/Lesion type: [place] artery [place] vs. transplanted heart: [place] heart Associated angina: without angina Qualified Code(s): I25.10 - Atherosclerotic heart disease of [place] coronary artery without angina pectoris Is this a current diagnosis for this admission?: Yes (3) DVT prophylaxis Is this a current diagnosis for this admission?: Yes (4) Do not resuscitate Is this a current diagnosis for this admission?: Yes (5) History of lung cancer Is this a current diagnosis for this admission?: Yes (6) Pneumonia Qualifiers: Pneumonia type: due to unspecified organism Laterality: bilateral Lung location: unspecified part of lung Qualified Code(s): J18.9 - Pneumonia, unspecified organism Is this a current diagnosis for this admission?: YesPlan: No cultures available yet; patient is not really coughing up mucus Continue broad-spectrum coverage (7) Sepsis Qualifiers: Sepsis type: sepsis due to unspecified organism Qualified Code(s): A41.9 - Sepsis, unspecified organism Is this a current diagnosis for this admission?: YesPlan: Resolved Sepsis was secondary to pneumonia (8) COPD exacerbation Is this a current diagnosis for this admission?: YesPlan: Is improving (9) Diastolic CHF, acute on chronic Is this a current diagnosis for this admission?: YesPlan: Continue Lasix IV - Time Time Spent with patient: We will initiate physical therapy Continue present management Encourage the patient to sit in chair and ambulate Time Spent with patient: 25-34 minutes Within: within 72 hours
[2016-09-20] MEDS: LORAZEPAM 0.5 MG TABLET PO PRN (14:52)
[2016-09-20] MEDS: SERTRALINE HCL 50 MG TABLET PO SCH (21:14)
[2016-09-20] MEDS: ATORVASTATIN CALCIUM 10 MG TABLET PO SCH (21:14)
[2016-09-21] MEDS: FUROSEMIDE INJ/PF 20 MG/2 ML SDV IV SCH ×2 (05:09→18:14)
[2016-09-21] MEDS: PIPERACILLIN SODIUM/TAZOBACTAM 4.5 GM in NORMAL SALINE 100 ML IV SCH ×2 (05:09→11:16)
[2016-09-21] MEDS: HEPARIN SOD (PORCINE) 5,000 UNIT/ML 1 ML SYRINGE SUBCUT SCH ×3 (05:09→21:12)
[2016-09-21] MEDS: LEVALBUTEROL HCL NEB 1.25 MG/3 ML AMPUL NEB SCH ×3 (07:46→20:02)
[2016-09-21] MEDS: HUM INSULIN NPH/REG INSULIN HM 100 UNIT/1 ML 3 ML SUBCUT SCH ×2 (08:41→16:33)
[2016-09-21] MEDS: INSULIN LISPRO 100 UNIT/ML 3 ML VIAL SUBCUT PRN ×2 (08:41→16:32)
[2016-09-21] MEDS: GUAIFENESIN 600 MG TABLET.SA PO SCH ×2 (11:14→21:09)
[2016-09-21] MEDS: LANSOPRAZOLE 15 MG TAB.RAP.DR PO SCH (11:14)
[2016-09-21] MEDS: PREDNISONE 20 MG TABLET PO SCH ×2 (11:14→18:14)
[2016-09-21] MEDS: ASPIRIN 81 MG TABLET, CHEWABLE PO SCH (11:15)
[2016-09-21] MEDS: LEVOTHYROXINE SODIUM 0.05 MG TABLET PO SCH (11:15)
[2016-09-21] MEDS: CARVEDILOL 3.125 MG TABLET PO SCH ×2 (11:15→21:12)
--- NOTE | 2016-09-21 16:27 | PDOC PROGRESS REPORT ---
Subjective Progress Note for:: 09/21/16 Subjective:: feels a lot better alert awake SOB is improved "passed a lot of water with lasix " no chest pain Physical Exam Vital Signs: Temp Pulse Resp BP Pulse Ox 97.6 F 71 18 127/46 H 99 09/21/16 03:47 09/21/16 13:54 09/21/16 13:54 09/21/16 03:47 09/21/16 13:54 Intake & Output 09/20/16 09/21/16 09/22/16 00:59 00:59 00:59 Intake Total 1166 1931 350 Output Total 900 700 Balance 266 1231 350 Weight 64 kg 64 kg 64 kg General appearance: PRESENT: no acute distress, thin Head exam: PRESENT: atraumatic, normocephalic Eye exam: PRESENT: conjunctiva pink, EOMI, PERRLA. ABSENT: scleral icterus Ear exam: PRESENT: normal external ear exam Mouth exam: PRESENT: moist, tongue midline Neck exam: ABSENT: carotid bruit, JVD, lymphadenopathy, thyromegaly Respiratory exam: PRESENT: clear to auscultation yaya, rhonchi - few ronchi occasionally. ABSENT: rales, wheezes Cardiovascular exam: PRESENT: RRR. ABSENT: diastolic murmur, rubs, systolic murmur Pulses: PRESENT: normal dorsalis pedis pul Vascular exam: PRESENT: normal capillary refill GI/Abdominal exam: PRESENT: normal bowel sounds, soft. ABSENT: distended, guarding, mass, organolmegaly, rebound, tenderness Rectal exam: PRESENT: deferred Extremities exam: PRESENT: full ROM. ABSENT: calf tenderness, clubbing, pedal edema Neurological exam: PRESENT: alert, awake, oriented to person, oriented to place , oriented to time, oriented to situation, CN II-XII grossly intact. ABSENT: motor sensory deficit Psychiatric exam: PRESENT: appropriate affect, normal mood. ABSENT: homicidal ideation, suicidal ideation Skin exam: PRESENT: dry, intact, warm. ABSENT: cyanosis, rash Results Laboratory Results: 09/19/16 04:54 09/19/16 17:35 09/19/16 04:54 NT-Pro-B Natriuret Pep 1850 H Impressions: Chest CT 09/16/16 00:00 IMPRESSION: STABLE ATELECTATIC CHANGE/ SCARRING INVOLVING THE LEFT HILUM/ LUNG PRESUMABLY REPRESENTS POST TREATMENT CHANGE FOR LUNG MALIGNANCY. THERE HAS BEEN SLIGHT INTERVAL INCREASE IN SIZE OF PATIENT'S SMALL LEFT PLEURAL EFFUSION. INTERVAL IMPROVEMENT OF RIGHT-SIDED PULMONARY NODULES MAY REPRESENT RESOLVING INFECTIOUS/ INFLAMMATORY PROCESS OR RESPONSE OF METASTATIC DISEASE TO THERAPY. CORRELATE CLINICALLY. Chest X-Ray 09/17/16 06:00 IMPRESSION: INCREASED VOLUME LOSS ON THE LEFT WITH INCREASED AIRSPACE OPACITY LEFT LUNG BASE SUGGESTIVE OF ATELECTATIC LUNG. Assessment & Plan - Diagnosis (1) Acute and chronic respiratory failure with hypoxia Is this a current diagnosis for this admission?: Yes (2) Coronary artery disease Qualifiers: Coronary Disease-Associated Artery/Lesion type: [place] artery [place] vs. transplanted heart: [place] heart Associated angina: without angina Qualified Code(s): I25.10 - Atherosclerotic heart disease of [place] coronary artery without angina pectoris Is this a current diagnosis for this admission?: Yes (3) DVT prophylaxis Is this a current diagnosis for this admission?: Yes (4) Do not resuscitate Is this a current diagnosis for this admission?: Yes (5) History of lung cancer Is this a current diagnosis for this admission?: Yes (6) Pneumonia Qualifiers: Pneumonia type: due to unspecified organism Laterality: bilateral Lung location: unspecified part of lung Qualified Code(s): J18.9 - Pneumonia, unspecified organism Is this a current diagnosis for this admission?: Yes (7) Sepsis Qualifiers: Sepsis type: sepsis due to unspecified organism Qualified Code(s): A41.9 - Sepsis, unspecified organism Is this a current diagnosis for this admission?: Yes (8) COPD exacerbation Is this a current diagnosis for this admission?: Yes (9) Diastolic CHF, acute on chronic Is this a current diagnosis for this admission?: Yes - Time Time Spent with patient: patient is improved she was able to ambulate in the hallway will d/c in am d/c naziasybiju Time Spent with patient: 25-34 minutes
[2016-09-21] MEDS: SERTRALINE HCL 50 MG TABLET PO SCH (21:09)
[2016-09-21] MEDS: ATORVASTATIN CALCIUM 10 MG TABLET PO SCH (21:11)
[2016-09-21] MEDS: CEFUROXIME 500 MG TABLET PO SCH (21:11)
[2016-09-22] MEDS: FUROSEMIDE INJ/PF 20 MG/2 ML SDV IV SCH (05:16)
[2016-09-22] MEDS: HEPARIN SOD (PORCINE) 5,000 UNIT/ML 1 ML SYRINGE SUBCUT SCH ×2 (05:17→14:57)
[2016-09-22 07:00] LABS: HEMATOCRIT 38.4 % (36.0-47.0); HEMOGLOBIN 12.5 g/dL (12.0-15.5); HGB HCT DIFFERENCE -0.9; MEAN CORPUSCULAR HEMOGLOBIN 25.2 pg (27.0-33.4); MEAN CORPUSCULAR HGB CONC 32.6 g/dL (32.0-36.0); MEAN CORPUSCULAR VOLUME 77 fl (80-97); RED BLOOD COUNT 4.96 10^6/uL (3.72-5.28); RED CELL DISTRIBUTION WIDTH 17.5 % (11.5-14.0); WHITE BLOOD COUNT 12.2 10^3/uL (4.0-10.5)
[2016-09-22 07:03] LABS: BLOOD UREA NITROGEN 34 mg/dL (7-20); CALCIUM 9.4 mg/dL (8.4-10.2); CHLORIDE 97 mmol/L (98-107); CREATININE RESULT 1.03 mg/dL (0.52-1.25); GLUCOSE 168 mg/dL (75-110); POTASSIUM 3.6 mmol/L (3.6-5.0); SODIUM 142.8 mmol/L (137-145)
[2016-09-22 07:10] LABS: ANION GAP 9 (5-19); CARBON DIOXIDE 37 mmol/L (22-30)
[2016-09-22 07:37] LABS: BASOPHILS % (MANUAL) 0 % (0-2); EOSINOPHILS % (MANUAL) 0 % (0-6); LYMPHOCYTES % (MANUAL) 12 % (13-45); TOTAL CELLS COUNTED 100
[2016-09-22 07:39] LABS: ANISOCYTOSIS 1+; OVALOCYTES SLIGHT; POIKILOCYTOSIS SLIGHT; POLYCHROMASIA SLIGHT
[2016-09-22] MEDS: HUM INSULIN NPH/REG INSULIN HM 100 UNIT/1 ML 3 ML SUBCUT SCH (08:01)
[2016-09-22] MEDS: INSULIN LISPRO 100 UNIT/ML 3 ML VIAL SUBCUT PRN ×2 (08:01→11:54)
[2016-09-22] MEDS: LEVALBUTEROL HCL NEB 1.25 MG/3 ML AMPUL NEB SCH ×2 (08:03→13:06)
[2016-09-22] MEDS: GUAIFENESIN 600 MG TABLET.SA PO SCH (10:19)
[2016-09-22] MEDS: ASPIRIN 81 MG TABLET, CHEWABLE PO SCH (10:19)
[2016-09-22] MEDS: PREDNISONE 20 MG TABLET PO SCH (10:19)
[2016-09-22] MEDS: LEVOTHYROXINE SODIUM 0.05 MG TABLET PO SCH (10:20)
[2016-09-22] MEDS: LANSOPRAZOLE 15 MG TAB.RAP.DR PO SCH (10:20)
[2016-09-22] MEDS: CEFUROXIME 500 MG TABLET PO SCH (10:20)
[2016-09-22] MEDS: CARVEDILOL 3.125 MG TABLET PO SCH (10:22)
--- NOTE | 2016-09-22 12:43 | PDOC TRANSFER SUMMARY ---
General - Admit/Disc Date/PCP Admission Date/Primary Care Provider: 09/14/16 13:31 KD CISNEROS PA-C Discharge Date: 09/22/16 - Discharge Diagnosis (1) Acute and chronic respiratory failure with hypoxia Is this a current diagnosis for this admission?: YesSummary: Respiratory failure secondary to pneumonia, chronic COPD, acute on chronic diastolic CHF Is improved Patient to be continued on nasal O2 at 2 L/m (2) Coronary artery disease Is this a current diagnosis for this admission?: YesSummary: Patient's troponin have been in intermediate range ; there was no evidence of an acute coronary syndrome (3) DVT prophylaxis Is this a current diagnosis for this admission?: Yes (4) Do not resuscitate Is this a current diagnosis for this admission?: Yes (5) History of lung cancer Is this a current diagnosis for this admission?: YesSummary: Patient has been treated with chemotherapy (6) Pneumonia Is this a current diagnosis for this admission?: YesSummary: chest xray showed infiltrate LLL patient was treated with broad spectrum antibiotics she will be discharged on ceftin (7) Sepsis Is this a current diagnosis for this admission?: YesSummary: secondary to pneumonia resolved (8) COPD exacerbation Is this a current diagnosis for this admission?: YesSummary: patient was treated with high doses steroids , nebs will be discharged on prednisone taper (9) Diastolic CHF, acute on chronic Is this a current diagnosis for this admission?: YesSummary: preserved left ventricular function on echo performed on 11/01 patient responded to lasix IV - Additional Information Resuscitation Status: Do Not Resuscitate Home Medications: Acetaminophen [Tylenol] 650 mg PO Q4HP PRN 09/14/16 Aspirin [Aspirin 81 mg Chewable Tablet] 81 mg PO DAILY 09/14/16 Atorvastatin Calcium 10 mg PO DAILY 09/14/16 Bisacodyl [Dulcolax 10 mg Supp.rect] 10 mg GA DAILYP PRN 09/14/16 Carvedilol [Coreg 3.125 mg Tablet] 3.125 mg PO Q12 09/14/16 Ergocalciferol (Vitamin D2) [Vitamin D2] 50,000 unit PO MO@1000 09/14/16 Furosemide [Lasix 20 mg Tablet] 20 mg PO DAILY 09/14/16 Guaifenesin 200 mg PO Q4HP PRN 09/14/16 Levothyroxine Sodium [Synthroid 0.05 mg Tablet] 0.05 mg PO DAILY 09/14/16 Loperamide HCl [Imodium 2 mg Capsule] 4 mg PO PRN PRN MDD 16 MG/24 HOURS Nystatin/Dexameth/Diphen [Magic Mouthwash] 5 ml PO ACHSP PRN 09/14/16 Ondansetron HCl [Zofran 8 mg Tablet] 8 mg PO Q8HP PRN 09/14/16 Sennosides [Senna] 2 tab PO DAILYP PRN 09/14/16 Sertraline HCl [Zoloft 50 mg Tablet] 50 mg PO QHS 09/14/16 Simethicone 80 mg PO Q6HP PRN 09/14/16 Umeclidinium Brm/Vilanterol Tr [Anoro Ellipta 62.5-25 Mcg INH] 1 puff IH DAILY 09/14/16 Benzonatate [Tessalon Perles 100 mg Capsule] 100 mg PO Q8HP PRN #30 capsule 03/03 Cefuroxime Axetil [Ceftin 500 mg Tablet] 500 mg PO Q12 #10 tablet 09/22/16 Hum Insulin NPH/Reg Insulin Hm [Insulin 70-30 (NPH/Reg) 100 unit/mL] 30 unit SUBCUT ACSUPPER #1 unit 09/22/16 Hum Insulin NPH/Reg Insulin Hm [Insulin 70-30 (NPH/Reg) 100 unit/mL] 30 unit SUBCUT QAM #1 unit 09/22/16 Levalbuterol HCl [Xopenex Neb 1.25 mg/3 ml Ampul] 1.25 mg NEB [id number] #30 vial.neb 09/22/16 Pantoprazole Sodium [Protonix] 40 mg PO QHS #30 tablet. 09/22/16 Prednisone 20 mg PO DAILY #30 09/22/16 History of Present Illness Admission Date/PCP: 09/14/16 13:31 KD CISNEROS PA-C Patient complains of: Shortness of breath History of Present Illness: JATINDER RODRIGUEZ is a 81 year old female the past medical history of lung cancer that presented with one week duration of productive cough and shortness of breath. Patient denies any other fevers or chills patient is a DO NOT RESUSCITATE. Patient was found to have evidence of sepsis with white count, fever, tachypnea and evidence of a clinical pneumonia and therefore the patient was referred to the hospitalist remission and management. MEDICATIONS: The medications listed in this document may have been auto- populated from previous contact and may not been verified or reconciled. This may not be an accurate reflection of the patient's home medication(s); however, authors are unable to edit or delete the medications listed in this document as "home medications". Selected Entries 09/14/16 09/14/16 11:30 14:01 Temperature 99.2 F Respiratory 23 H Rate 09/14/16 12:00 WBC 17.1 H Hospital Course Hospital Course: see above Physical Exam Vital Signs: Temp Pulse Resp BP Pulse Ox 98.0 F 72 18 103/43 L 100 09/22/16 08:31 09/22/16 08:31 09/22/16 08:31 09/22/16 08:31 09/22/16 08:31 Intake & Output 09/21/16 09/22/16 09/23/16 00:59 00:59 00:59 Intake Total 1931 1300 105 Output Total 700 1200 Balance 1231 100 105 Weight 64 kg 64.1 kg 64.1 kg General appearance: PRESENT: no acute distress, thin Head exam: PRESENT: atraumatic, normocephalic Eye exam: PRESENT: conjunctiva pink, EOMI, PERRLA. ABSENT: scleral icterus Neck exam: ABSENT: carotid bruit, JVD, lymphadenopathy, thyromegaly Respiratory exam: PRESENT: rhonchi - few scattered bilaterally, unlabored. ABSENT: accessory muscle use, chest wall tenderness, wheezes Cardiovascular exam: PRESENT: RRR. ABSENT: diastolic murmur, rubs, systolic murmur Pulses: PRESENT: normal carotid pulses Extremities exam: PRESENT: full ROM. ABSENT: calf tenderness, clubbing, pedal edema Neurological exam: PRESENT: alert, awake, oriented to person, oriented to place , oriented to time, oriented to situation, CN II-XII grossly intact. ABSENT: motor sensory deficit Results Laboratory Results: 09/22/16 06:21 09/22/16 06:21 09/22/16 09/22/16 06:21 06:21 WBC 12.2 H RBC 4.96 Hgb 12.5 Hct 38.4 MCV 77 L MCH 25.2 L MCHC 32.6 RDW 17.5 H Plt Count 273 Seg Neutrophils % Not Reportable Lymphocytes % Not Reportable Monocytes % Not Reportable Eosinophils % Not Reportable Basophils % Not Reportable Absolute Neutrophils Not Reportable Absolute Lymphocytes Not Reportable Absolute Monocytes Not Reportable Absolute Eosinophils Not Reportable Absolute Basophils Not Reportable Sodium 142.8 Potassium 3.6 Chloride 97 L Carbon Dioxide 37 H Anion Gap 9 BUN 34 H Creatinine 1.03 Est GFR ( Amer) > 60 Est GFR (Non-Af Amer) 52 L Glucose 168 H Calcium 9.4 09/19/16 04:54 NT-Pro-B Natriuret Pep 1850 H Impressions: Chest CT 09/16/16 00:00 IMPRESSION: STABLE ATELECTATIC CHANGE/ SCARRING INVOLVING THE LEFT HILUM/ LUNG PRESUMABLY REPRESENTS POST TREATMENT CHANGE FOR LUNG MALIGNANCY. THERE HAS BEEN SLIGHT INTERVAL INCREASE IN SIZE OF PATIENT'S SMALL LEFT PLEURAL EFFUSION. INTERVAL IMPROVEMENT OF RIGHT-SIDED PULMONARY NODULES MAY REPRESENT RESOLVING INFECTIOUS/ INFLAMMATORY PROCESS OR RESPONSE OF METASTATIC DISEASE TO THERAPY. CORRELATE CLINICALLY. Chest X-Ray 09/17/16 06:00 IMPRESSION: INCREASED VOLUME LOSS ON THE LEFT WITH INCREASED AIRSPACE OPACITY LEFT LUNG BASE SUGGESTIVE OF ATELECTATIC LUNG. Transfer Plan - Disposition Transfer Plan: patient transfered to assisted living to follow up with Kd Cisneros in 1 week - Time Spent with Patient Time spent with patient: Greater than 30 Minutes
[2016-09-22 13:24] VITALS: BP 125/49
== END 2016-09-22 16:58 | DRG 871 ==
LOC: ER 11:23 → EH 13:31 → 3S 18:16 → 5 09-19 19:08
PROVIDERS: ADMIT Family Medicine; ATTEND Family Medicine
PROC: 3E0F73Z Introduction of Anti-inflammatory into Respiratory Tract, Via Natural or Artificial Opening (ICD-10-PCS; principal; 2016-09-14)
DX: A41.9 Sepsis, unspecified organism (principal); J18.9 Pneumonia, unspecified organism; I50.33 Acute on chronic diastolic (congestive) heart failure; J96.21 Acute and chronic respiratory failure with hypoxia; J44.1 Chronic obstructive pulmonary disease with (acute) exacerbation; E11.9 Type 2 diabetes mellitus without complications; E03.9 Hypothyroidism, unspecified; I25.10 Atherosclerotic heart disease of native coronary artery without angina pectoris; Z66 Do not resuscitate; Z90.710 Acquired absence of both cervix and uterus; Z79.82 Long term (current) use of aspirin; Z79.4 Long term (current) use of insulin; Z79.899 Other long term (current) drug therapy; Z85.118 Personal history of other malignant neoplasm of bronchus and lung; Z80.9 Family history of malignant neoplasm, unspecified
CPT/HCPCS: 36415; 71010; 71020; 71260; 80048; 80053; 80202; 81001; 82550; 82553; 82565; 82803; 82962; 83605; 83735; 83880; 84484; 85025; 85027; 87040; 87070; 87205; 93005; 93010; 94640; 94668; 94799; 96365; 99291; J1644; J1815; J1940; J1956; J2543; J2920; J3370; J3490; J7030; J7060; J7512; J7620

== ENCOUNTER 2016-12-05 21:45 | Inpatient (IN) | payer MEDICARE, MEDICAID, OTHER ==
--- NOTE | 2016-12-05 22:10 | ER Document Report ---
ED General - General Stated Complaint: SHORT OF BREATH,CHEST PAIN Notes: Patient is a pleasant 81-year-old female presents for complaint of fever and cough for 1 week. She says that she was placed on antibiotics but is unsure what antibiotic she is on. She has a history of pneumonia. She was admitted August with pneumonia. She did attempt of 101. She stays at the [facility] assisted living facility. She was given Tylenol and IV fluids by him once. She does have history of lung cancer. She wears 2 L of oxygen at home. She's not had to increase her oxygen. She says that her last chemotherapy and radiation or 4 months ago. She says that she is not aware of any upcoming chemotherapy or radiation treatments. She denies nausea vomiting or diarrhea. She denies any abdominal pain or chest pain. She denies any headache. No dysuria. TRAVEL OUTSIDE OF THE [place] IN LAST 30 DAYS: No - Related Data Allergies/Adverse Reactions: No Known Allergies Allergy (Unverified 10/16/15 06:35) Home Medications: Current Home Medications Insulin Aspart Protam & Aspart [Novolog Mix 70-30 Vial] 40 unit SQ BID 12/06/16 [History] Melatonin 1 mg PO QHS 12/06/16 [History] Past Medical History - Social History Smoking Status: Former Smoker Frequency of alcohol use: None Drug Abuse: None Family History: Reviewed & Not Pertinent, Malignancy - Past Medical History Cardiac Medical History: Reports: Hx Congestive Heart Failure Pulmonary Medical History: Reports: Hx COPD Endocrine Medical History: Reports: Hx Diabetes Mellitus Type 2 Malignancy Medical History: Reports: Hx Lung Cancer Past Surgical History: Reports: Hx Appendectomy, Hx Hysterectomy - Immunizations Hx Diphtheria, Pertussis, Tetanus Vaccination: Yes Review of Systems - Review of Systems Notes: My Normal Review Basic REVIEW OF SYSTEMS: CONSTITUTIONAL : Fever EENT: Denies eye, ear, throat, or mouth pain or symptoms. Denies nasal or sinus congestion. CARDIOVASCULAR: Denies chest pain. RESPIRATORY: Recurrent cough GASTROINTESTINAL: Denies abdominal pain. Denies nausea, vomiting, or diarrhea. Denies constipation. Last BM: GENITOURINARY: Denies difficulty urinating, painful urination, burning, frequency, or blood in urine. MUSCULOSKELETAL: Denies neck or back pain or joint pain or swelling. SKIN: Denies rash or skin lesions. NEUROLOGICAL: Denies altered mental status or loss of consciousness. Denies headache. Denies weakness or paralysis or loss of use of either side. Denies problems with gait or speech. Denies sensory or motor loss. ALL OTHER SYSTEMS REVIEWED AND NEGATIVE. Physical Exam - Vital signs Vitals: Resp Pulse Ox 14 98 12/05/16 21:58 12/05/16 21:58 - Notes Notes: General Appearance: Well nourished, alert, cooperative, no acute distress, no obvious discomfort. Vitals: reviewed, See vital signs table. Head: no swelling or tenderness to the head Eyes: PERRL, EOMI, Conjuctiva clear Mouth: No decreasd moisture Throat: No tonsillar inflammation, No airway obstruction, No lymphadenopathy Neck: Supple, no neck tenderness, No thyromegaly Lungs: No wheezing, No rales, No rhonci, No accessory muscle use, good air exchange bilaterally. Heart: Normal rate, Regular rythm, No murmur, no rub Abdomen: Normal BS, soft, No rigidity, No abdominal tenderness, No guarding, no rebound, no abdominal masses, no organomegaly Extremities: strength 5/5 in all extremities, good pulses in all extremities, no swelling or tenderness in the extremities, no edema. Skin: warm, dry, appropriate color, no rash Neuro: speech clear, oriented x 3, normal affect, responds appropriately to questions. Course - Vital Signs Vital signs: Temp Pulse Resp BP Pulse Ox 98.6 F 87 31 H 96/41 L 98 12/06/16 00:15 12/06/16 00:15 12/06/16 03:31 12/06/16 03:31 12/06/16 03:31 - Laboratory Result Diagrams: 12/05/16 22:10 12/05/16 22:10 Laboratory results interpreted by me: 12/05/16 12/05/16 12/05/16 22:10 22:10 22:34 Hgb 11.0 L Hct 32.3 L RDW 18.3 H VBG HCO3 Potassium 3.1 L Est GFR (Non-Af Amer) 50 L POC Glucose 113 H Direct Bilirubin 0.5 H Total Protein 5.0 L Albumin 2.9 L Urine Protein Urine Ketones Urine Nitrite Urine Urobilinogen Ur Leukocyte Esterase 12/05/16 12/06/16 22:48 00:43 Hgb Hct RDW VBG HCO3 34.0 H Potassium Est GFR (Non-Af Amer) POC Glucose Direct Bilirubin Total Protein Albumin Urine Protein 30 H Urine Ketones TRACE H Urine Nitrite POSITIVE H Urine Urobilinogen 4.0 H Ur Leukocyte Esterase LARGE H - EKG Interpretation by Me Additional EKG results interpreted by me: 12/05/16 22:09 EKG is reviewed and interpreted by me. EKG shows normal sinus rhythm with rate of [address] segment elevation or depression. No ischemic T wave inversions. ND interval, QRS duration, QTC intervals are within normal range. Old EKG for comparison is from 09/14/2016. 12/05/16 22:10 - Transfer of Care Notes: 12/06/16 05:30 Patient's chest x-ray shows possible developing pneumonia. She also has a UTI and urinalysis. She has a leukocytosis however she said a fever 101 and she did have a few blood pressures systolically went into the 80s. She did respond well to IV fluids. Due to her age and intermittent hypotension I think it is appropriate to admit her for further treatment of her infection. I did speak with the hospitalist who agrees to admit the patient. Dictation of this chart was performed using voice recognition software; therefore, there may be some unintended grammatical errors. Discharge - Discharge Clinical Impression: Fever Qualifiers: Fever type: unspecified Qualified Code(s): R50.9 - Fever, unspecified Pneumonia Qualifiers: Pneumonia type: due to unspecified organism Laterality: bilateral Lung location : unspecified part of lung Qualified Code(s): J18.9 - Pneumonia, unspecified organism UTI (urinary tract infection) Qualifiers: Urinary tract infection type: site unspecified Hematuria presence: with hematuria Qualified Code(s): N39.0 - Urinary tract infection, site not specified Disposition: ADMITTED INPATIENT Admitting Provider: Hospitalist Unit Admitted: [facility]
[2016-12-05 22:26] LABS: ABSOLUTE BASOPHILS # (AUTO) 0.1 10^3/uL (0.0-0.2); ABSOLUTE EOSINOPHILS # (AUTO) 0.2 10^3/uL (0.0-0.6); ABSOLUTE LYMPHOCYTES (AUTO) 1.3 10^3/uL (0.5-4.7); ABSOLUTE MONOCYTES (AUTO) 0.8 10^3/uL (0.1-1.4); ABSOLUTE NEUT (AUTO) 5.5 10^3/uL (1.7-8.2); BASOPHILS % (AUTO) 1.1 % (0-2); EOSINOPHILS % (AUTO) 1.9 % (0-6); HEMATOCRIT 32.3 % (36.0-47.0); HGB HCT DIFFERENCE 0.7; MEAN CORPUSCULAR HEMOGLOBIN 27.4 pg (27.0-33.4); MEAN CORPUSCULAR HGB CONC 34.2 g/dL (32.0-36.0); MEAN CORPUSCULAR VOLUME 80 fl (80-97); MONOCYTES % (AUTO) 10.7 % (3-13); RED BLOOD COUNT 4.02 10^6/uL (3.72-5.28); RED CELL DISTRIBUTION WIDTH 18.3 % (11.5-14.0); SEGMENTED NEUTROPHILS % (AUTO) 69.3 % (42-78); WHITE BLOOD COUNT 7.9 10^3/uL (4.0-10.5)
[2016-12-05 22:28] LABS: PROTHROMBIN TIME 12.6 SEC (11.4-15.4)
[2016-12-05 22:39] LABS: ALANINE AMINOTRANSFERASE 27 U/L (9-52); ALBUMIN 2.9 g/dL (3.5-5.0); ALKALINE PHOSPHATASE 77 U/L (38-126); ANION GAP 14 (5-19); ASPARTATE AMINO TRANSFERASE 31 U/L (14-36); BILIRUBIN,DIRECT 0.5 mg/dL (0.0-0.4); BILIRUBIN,TOTAL 0.8 mg/dL (0.2-1.3); BLOOD UREA NITROGEN 11 mg/dL (7-20); CALCIUM 8.6 mg/dL (8.4-10.2); CARBON DIOXIDE 28 mmol/L (22-30); CHLORIDE 99 mmol/L (98-107); CREATININE RESULT 1.05 mg/dL (0.52-1.25); GLUCOSE 78 mg/dL (75-110); POTASSIUM 3.1 mmol/L (3.6-5.0); SODIUM 141.4 mmol/L (137-145)
[2016-12-05 23:15] LABS: APPEARANCE,URINE CLOUDY; BILIRUBIN,URINE NEGATIVE (NEGATIVE); GLUCOSE, URINE NEGATIVE (NEGATIVE); KETONES,URINE TRACE mg/dL (NEGATIVE); LEUKOCYTE ESTERASE,URINE LARGE (NEGATIVE); NITRITE,URINE POSITIVE (NEGATIVE); PROTEIN,URINE 30 mg/dL (NEGATIVE); URINE SPECIFIC GRAVITY 1.015
[2016-12-06] MEDS ORDERED: LEVOFLOXACIN 750 MG/D5W RTU 150 ML IV ONE (00:12)
[2016-12-06] MEDS ORDERED: NORMAL SALINE 1000 ML 500 ML IV ONE (00:13)
[2016-12-06 00:58] LABS: VENOUS BLOOD BASE EXCESS 7.7 mmol/L; VENOUS BLOOD PCO2 57.4 mmHg (35-63); VENOUS BLOOD PH 7.39 (7.30-7.42)
[2016-12-06] MEDS ORDERED: POTASSIUM CHLORIDE 20 MEQ/15 ML UDCUP PO ONE ×2 (03:21→06:00)
[2016-12-06 03:30] LABS: ADD ON TESTING BLD IN LAB ACKNOWLEDGE
[2016-12-06] MEDS ORDERED: NORMAL SALINE 1000 ML 1,000 ML IV PRN (03:35)
[2016-12-06] MEDS ORDERED: ALBUTEROL SULFATE 0.083% NEB 2.5 MG/3 ML AMPUL NEB PRN (03:35)
[2016-12-06] MEDS ORDERED: GUAIFENESIN SYRP 200 MG/10 ML UDC PO PRN (03:35)
[2016-12-06] MEDS ORDERED: GLUCAGON,HUMAN RECOMB 1 MG INJ IM PRN (03:36)
[2016-12-06] MEDS ORDERED: DEXTROSE 40% GEL 15 GM TUBE PO PRN ×2 (03:36)
[2016-12-06] MEDS ORDERED: DEXTROSE 50%-WATER 25 GM/50 ML DISP.SYRIN IV PRN ×2 (03:36)
[2016-12-06] MEDS: HYDROCORTISONE SOD SUCCINATE INJ/PF 100 MG/2 ML SDV IV SCH ×3 (03:41→18:32)
[2016-12-06] MEDS ORDERED: PHARMACY COMMUNICATION ORDER MC NR (03:45)
[2016-12-06] MEDS ORDERED: GENTAMICIN SULFATE 0 MG in DEXTROSE 5%-WATER 100 ML IV NR (03:45)
[2016-12-06] MEDS ORDERED: VANCOMYCIN HCL 0 MG in DEXTROSE 5%-WATER 250 ML IV NR (03:45)
--- NOTE | 2016-12-06 04:03 | PDOC H&P ---
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 [facility]ortedly [facility], but uncertain as to which specific antibiotic. Also, review of her jail medication list fails to reveal antibiotic. Of note, patient is not the best historian. She's had no other complaint in terms of nausea vomiting, fever or chills, chest or or abdominal pain. No diarrhea. No dysuria. Intermittently mildly hypotensive in the emergency room, but this has responded nicely to IV fluid boluses. Currently resting quietly, stating she does feel better. Patient has been discussed with emergency room physician who evaluated the patient. . Hospitalized on our service 09/14/2016 through 09/22/2016, with final diagnoses including acute on chronic respiratory failure with hypoxia. Transfer summary has been reviewed. Laboratory results are listed in [facility] and are reviewed. X-ray summary results are listed below, with full report(s) reviewed. . EKG reviewed. Social history/personal habits: . Lives at [facility] living [facility]. 4 children. Ambulates with a walker. Former smoker. No use of alcohol or illicit drugs. Allergies/adverse reactions are listed in [facility] and are reviewed. Home medications are reviewed from a list of medications from the [facility] assisted-living [facility]; unfortunately, frequencies are not listed. Medications are to be reconciled by pharmacy innovation assistant in [facility]. Home medications initially autopopulated into [facility] may not accurately reflect patient's true medications, dosages, and/or frequencies. REVIEW OF SYSTEMS: Constitutional: See history and present illness. Eyes: Wears glasses. ENT: No swallowing problems or complaints. Partial hearing loss. Pulmonary: See history and present illness. Cardiovascular: No current complaints, including chest pain. Gastrointestinal: No current complaints, including nausea or vomiting. Skin: No current complaints, including rashes. Hematologic: Easy bruising. Neurologic: No current complaints, including numbness or tingling. Musculoskeletal: No current complaints, including painful joints. Psychiatric: No current complaints, including anxiety or depression. Endocrine: No current complaints, including polyuria. Genitourinary: No current complaints, including dysuria. PHYSICAL EXAMINATION: 5 feet 2 inches tall. 69.3 kg. BMI 27.9 kg/m. Temperature 98.6. Blood pressure 102/58. Pulse 66 and regular. 99% saturation on 2 L oxygen per nasal cannula. Respirations are 16 and unlabored. Slightly overweight otherwise well-nourished well-developed elderly female appearing a bit younger than her stated age. Pleasant awake alert and cooperative. No obvious distress other than perhaps mildly anxious. Skin is warm and dry. No grossly obvious evidence of rash in areas of skin examined. No subcutaneous nodules palpated. ENT: Mildly hard of hearing to normal conversation. Tongue midline on protrusion pink and slightly tacky. Eyes: No scleral icterus. Pupils equal and reactive to light at 4 mm. [place] conjunctivae. Neck is supple and nontender to gentle active range of motion and palpation. Midline trachea. No palpable thyroid nodule mass enlargement or tenderness. Lymphatic: No palpable cervical or clavicular nodes. Neck and lymphatic exams limited by patient body habitus. Psychiatric: Fair to reasonable insight into acute and chronic medical issues. Oriented to time location and why here. A bit of a poor historian at times. Lungs: Auscultation reveals clear and equal breath sounds bilaterally. No use of accessory respiratory muscles. Occasional dry cough. Cardiovascular: Heart regular rate and rhythm, without gallop murmur or rub. No carotid or abdominal aortic bruits. No ankle or pedal edema. Faintly palpable dorsalis pedis pulses. Abdomen: soft, , slightly distended nontender with positive bowel sounds. Unable to adequately evaluate abdomen for masses or organomegaly due to distention. Extremities: Feet are warm and dry. No calf tenderness to compression. No grossly obvious visual evidence of calf swelling. Gentle manipulation of lower extremities fails to reveal any obvious evidence of injury or instability to knees hips or ankles. Neurologic: Moves upper extremities grossly normally. Patellar reflexes absent. Absent Babinski. Light touch is intact at feet. Dorsiflexion and plantarflexion of feet 5 / 5 and symmetric. Past Medical History Cardiac Medical History: Reports: Congestive Heart Failure - Diastolic, Coronary Artery Disease, Hyperlipidema, Hypertension Denies: DVT, Pulmonary Embolism Pulmonary Medical History: Reports: Chronic Obstructive Pulmonary Disease (COPD) Denies: Asthma, Sleep Apnea EENT Medical History: Reports: Eyes - Wears glasses, Ears - Partial hearing loss Denies: Throat Neurological Medical History: Denies: Hemorrhagic CVA, Ischemic CVA, Seizures Endocrine Medical History: Reports: Diabetes Mellitus Type 2, Hypothyroidism Denies: Hyperthyroidism Renal/ Medical History: Reports: Chronic Kidney Disease Malignancy Medical History: Reports: Lung Cancer - Chemotherapy And radiation treatment; no surgery. GI Medical History: Denies: Cirrhosis, Gastroesophageal Reflux Disease, Hepatitis, Peptic Ulcer Disease Musculoskeltal Medical History: Reports: None Skin Medical History: Reports: None Psychiatric Medical History: Denies: Alcohol Dependency, Depression, General Anxiety Disorder, Substance Abuse, Tobacco Dependency Hematology: Reports: Other - Easy bruising Infectious Medical History: Denies: Clostridium Difficile, Hepatitis B, Hepatitis C, Methicillin- Resistant Staph Aureus Past Surgical History Past Surgical History: Reports: Appendectomy, Hysterectomy Social History Information Source: Patient, Emergency Med Personnel, [facility] Records Lives with: [facility] Smoking Status: Former Smoker Frequency of Alcohol Use: None Hx Recreational Drug Use: No Drugs: None Hx Prescription Drug Abuse: No - Advance Directive Resuscitation Status: Do Not Resuscitate - Portable DO NOT RESUSCITATE documented on the chart.Implications of DO NOT RESUSCITATE/DO NOT INTUBATE status discussed with patient. Discussed in layperson's terms. Implications understood. Patient is the health care decision maker. Patient conversation is lucid and appropriate. Patient desires DO NOT RESUSCITATE/DO NOT INTUBATE status, as has been the case in the past.. Will honor patient wishes. Surrogate healthcare decision maker:: [id number] Shalabreana Ly Family History Family History: Reviewed & Not Pertinent, CAD, Malignancy Parental Family History Reviewed: Yes Children Family History Reviewed: Yes Sibling(s) Family History Reviewed.: Yes Medication/Allergy Home Medications: RX: Aspirin [Aspirin 81 mg Chewable Tablet] 81 mg PO DAILY 12/06/16 RX: Atorvastatin Calcium [Lipitor 10 mg Tablet] 10 mg PO QHS 12/06/16 RX: Ergocalciferol (Vitamin D2) [Drisdol 50,000 unit (1.25MG) Capsule] 1 cap PO MO 12/06/16 RX: Furosemide [Lasix] 20 mg PO DAILY 12/06/16 RX: Insulin Aspart Protam & Aspart [Novolog Mix 70-30 Vial] 40 unit SQ BIDACBS 12/06/16 RX: Levalbuterol HCl [Xopenex Neb 1.25 mg/3 ml Ampul] 1.25 mg NEB [id number] PRN RX: Levothyroxine Sodium [Synthroid 0.05 mg Tablet] 50 mcg PO DAILY 12/06/16 RX: Melatonin 1 mg PO QHS 12/06/16 RX: Pantoprazole Sodium [Protonix] 40 mg PO QHS 12/06/16 RX: Apixaban [Eliquis 2.5 mg Tablet] 2.5 mg PO BID #60 tablet 12/10/16 RX: Cefpodoxime Proxetil [Vantin 200 mg Tablet] 1 tab PO Q12 #14 tab 12/10/16 RX: Diltiazem HCl [Cardizem 30 mg Tablet] 30 mg PO Q8 #90 tablet 12/10/16 RX: Docusate Sodium [Colace 100 mg Capsule] 100 mg PO BID #60 capsule 12/10/16 RX: Dronedarone Hydrochloride [Multaq 400 mg Tablet] 400 mg PO Q12 #60 tablet RX: Insulin Lispro [Humalog Insulin (Lispro) 100 unit/mL] 0 - 12 unit SUBCUT ACHSP PRN unit 12/10/16 RX: Montelukast Sodium [Singulair 10 mg Tablet] 10 mg PO QHS #30 tablet RX: Prednisone [Deltasone 20 mg Tablet] 20 mg PO BID #14 tablet 12/10/16 RX: Alprazolam [Xanax 0.25 mg Tablet] 0.25 mg PO BIDP PRN #10 tablet 12/11/16 RX: Fluoxetine HCl [Prozac 20 mg Capsule] 20 mg PO QPM #30 capsule 12/11/16 RX: Trazodone HCl [Desyrel 50 mg Tablet] 25 mg PO QHS #10 tablet 12/11/16 Allergies/Adverse Reactions: No Known Allergies Allergy (Unverified 10/16/15 06:35) Physical Exam Vital Signs: Temp Pulse Resp BP Pulse Ox 98.6 F 87 18 95/54 L 98 12/06/16 00:15 12/06/16 00:15 12/06/16 03:01 12/06/16 03:01 12/06/16 03:01 Results Impressions: Chest X-Ray 12/05/16 21:53 IMPRESSION: Increased density in the left upper lung feel posteriorly which could represent atelectatic changes or minimal pneumonic infiltrate. Remaining lung aviles are clear. Other findings as noted above Assessment & Plan - Diagnosis (1) Hypotension Qualifiers: Hypotension type: unspecified hypotension type Qualified Code(s): I95.9 - Hypotension, unspecified Is this a current diagnosis for this admission?: YesPlan: Suspect due at least partly to her underlying steroid dependence. Solu-Cortef 100 mg every 8 hours. (2) COPD exacerbation Is this a current diagnosis for this admission?: YesPlan: Patient will be admitted under COPD exacerbation and pneumonia protocol. Incentive spirometry twice a day. Scheduled DuoNeb's. PRN albuterol nebs Solu-Cortef every 8 hours Prevacid for gastritis prophylaxis. Antibiotics will consist of Zosyn, intravenous vancomycin, given her place of residence, combined with severe underlying pulmonary disease, IV Zithromax, and gentamicin. Pharmacy to assist with dosing. I have strongly encouraged patient not to get out of bed , to avoid a fall with injury, along with a drop in her blood pressure. Knee high SCDs for DVT prophylaxis, along with subcutaneous heparin. Impression and plans were discussed with patient, who concurs. Time spent in evaluation and management of patient: 73 minutes. (3) Hypokalemia Is this a current diagnosis for this admission?: YesPlan: Potassium supplement with follow-up chemistry. (4) Pneumonia involving left lung Qualifiers: Pneumonia type: due to unspecified organism Lung location: upper lobe of lung Qualified Code(s): J18.1 - Lobar pneumonia, unspecified organism Is this a current diagnosis for this admission?: Yes (5) UTI (urinary tract infection) Qualifiers: Urinary tract infection type: site unspecified Hematuria presence: with hematuria Qualified Code(s): N39.0 - Urinary tract infection, site not specified Is this a current diagnosis for this admission?: YesPlan: Blood and urine cultures. Above antibiotics should cover this adequately. (6) Coronary artery disease Qualifiers: Coronary Disease-Associated Artery/Lesion type: [place] artery [place] vs. transplanted heart: [place] heart Associated angina: without angina Qualified Code(s): I25.10 - Atherosclerotic heart disease of [place] coronary artery without angina pectoris Is this a current diagnosis for this admission?: YesPlan: Resume home medications as appropriate once these have been determined and reviewed. (7) Anemia Qualifiers: Anemia type: unspecified type Qualified Code(s): D64.9 - Anemia, unspecified Is this a current diagnosis for this admission?: YesPlan: Follow-up CBC with differential. No need for transfusion at present time. (8) CKD (chronic kidney disease), stage III Is this a current diagnosis for this admission?: YesPlan: Follow-up chemistry. (9) Diastolic CHF Qualifiers: Congestive heart failure chronicity: chronic Qualified Code(s): I50.32 - Chronic diastolic (congestive) heart failure Is this a current diagnosis for this admission?: YesPlan: No evidence of exacerbation of same. Resume home medications as appropriate once these have been determined and reviewed. (10) Do not resuscitate Is this a current diagnosis for this admission?: Yes (11) HLD (hyperlipidemia) Qualifiers: Hyperlipidemia type: unspecified Qualified Code(s): E78.5 - Hyperlipidemia, unspecified Is this a current diagnosis for this admission?: YesPlan: Resume home medications as appropriate once these have been determined and reviewed. (12) Hypothyroidism Qualifiers: Hypothyroidism type: unspecified Qualified Code(s): E03.9 - Hypothyroidism, unspecified Is this a current diagnosis for this admission?: YesPlan: TSH is pending. Resume home medications as appropriate once these have been determined and reviewed. (13) Oxygen dependent Is this a current diagnosis for this admission?: Yes (14) Steroid dependent Is this a current diagnosis for this admission?: Yes - Inpatient Certification Based on my medical assessment, after consideration of the patient's comorbidities, presenting symptoms, or acuity I expect that the services needed warrant INPATIENT care.: Yes I certify that my determination is in accordance with my understanding of Medicare's requirements for reasonable and necessary INPATIENT services [42 CFR 412.3e].: Yes Medical Necessity: Significant Comorbidiites Make Outpatient Treatment Too Risky , Need Close Monitoring Due to Risk of Patient Decompensation, Need For IV Fluids, Need For Continuous Telemetry Monitoring, Need for Nebulizer Therapy and Monitoring of Response, Need for IV Antibiotics, Risk of Complication if Not Cared For in Hospital, Risk of Diagnosis Which Will Require Inpatient Eval/ Care/Monitoring Post Hospital Care: D/C or Transfer Summary
[2016-12-06] MEDS ORDERED: VANCOMYCIN HCL 1,000 MG in DEXTROSE 5%-WATER 250 ML IV ONE (04:30)
[2016-12-06] MEDS ORDERED: VANCOMYCIN HCL INJ 1000 MG VIAL ONE (05:18)
[2016-12-06] MEDS ORDERED: PIPERACILLIN SODIUM/TAZOBACTAM 4.5 GM in NORMAL SALINE 100 ML IV SCH (06:00)
[2016-12-06 07:11] LABS: ABSOLUTE LYMPHOCYTES (AUTO) 0.7 10^3/uL (0.5-4.7); ABSOLUTE MONOCYTES (AUTO) 0.3 10^3/uL (0.1-1.4); ABSOLUTE NEUT (AUTO) 6.1 10^3/uL (1.7-8.2); BASOPHILS % (AUTO) 0.5 % (0-2); EOSINOPHILS % (AUTO) 0.7 % (0-6); HEMATOCRIT 31.9 % (36.0-47.0); HEMOGLOBIN 10.9 g/dL (12.0-15.5); HGB HCT DIFFERENCE 0.8; LYMPHOCYTES % (AUTO) 9.6 % (13-45); MEAN CORPUSCULAR VOLUME 79 fl (80-97); MONOCYTES % (AUTO) 4.7 % (3-13); RED BLOOD COUNT 4.03 10^6/uL (3.72-5.28); SEGMENTED NEUTROPHILS % (AUTO) 84.5 % (42-78); WHITE BLOOD COUNT 7.3 10^3/uL (4.0-10.5)
[2016-12-06 07:22] LABS: ANION GAP 10 (5-19); BLOOD UREA NITROGEN 12 mg/dL (7-20); CALCIUM 8.8 mg/dL (8.4-10.2); CARBON DIOXIDE 30 mmol/L (22-30); CHLORIDE 105 mmol/L (98-107); CREATININE RESULT 0.89 mg/dL (0.52-1.25); GLUCOSE 174 mg/dL (75-110); POTASSIUM 3.7 mmol/L (3.6-5.0); SODIUM 144.5 mmol/L (137-145)
[2016-12-06] MEDS: IPRATROPIUM/ALBUTEROL 0.5-2.5 MG/3 ML AMPUL NEB SCH ×3 (07:40→19:56)
[2016-12-06] MEDS: LANSOPRAZOLE 30 MG TAB.RAP.DR PO SCH ×3 (07:49→21:56)
[2016-12-06] MEDS: PIPERACILLIN SODIUM/TAZOBACTAM 3.375 GM in NORMAL SALINE 100 ML IV SCH ×4 (07:50→23:09)
--- NOTE | 2016-12-06 08:25 | EKG REPORT ---
SEVERITY:- NORMAL ECG - SINUS RHYTHM : Confirmed by: Valerio Duarte MD 06-Dec-2016 08:24:29
[2016-12-06] MEDS ORDERED: GENTAMICIN SULFATE 100 MG in DEXTROSE 5%-WATER 100.0 ML IV ONE ×2 (09:00→10:00)
[2016-12-06] MEDS ORDERED: AZITHROMYCIN 500 MG in DEXTROSE 5%-WATER 250 ML IV SCH (10:00)
[2016-12-06] MEDS: GUAIFENESIN 600 MG TABLET.SA PO SCH ×2 (10:05→21:57)
[2016-12-06] MEDS: HEPARIN SOD (PORCINE) 5,000 UNIT/ML 1 ML SYRINGE SUBCUT SCH ×2 (10:05→21:56)
[2016-12-06] MEDS: INSULIN LISPRO 100 UNIT/ML 3 ML VIAL SUBCUT PRN ×3 (13:55→23:04)
--- NOTE | 2016-12-06 16:26 | PDOC PROGRESS REPORT ---
Subjective Progress Note for:: 12/06/16 Subjective:: The patient was seen earlier today on rounds. Symptoms have improved since admission. The patient denies any nausea, vomiting, diarrhea, shortness of breath, dizziness, chest pain, heart palpitations, fevers, or chills. The patient has remained afebrile. Blood pressures have been in a good range. When prompted the patient voices no other concerns at this time. Review of systems: The rest of the review of systems is negative. Physical Exam Vital Signs: Temp Pulse Resp BP Pulse Ox 97.7 F 73 16 112/67 94 12/06/16 12:00 12/06/16 14:00 12/06/16 14:00 12/06/16 12:08 12/06/16 14:00 Intake & Output 12/04/16 12/05/16 12/06/16 23:59 23:59 23:59 Intake Total 200 Balance 200 General appearance: PRESENT: no acute distress, cooperative, well-developed, well-nourished Head exam: PRESENT: atraumatic, normocephalic Eye exam: PRESENT: conjunctiva pink, EOMI, PERRLA. ABSENT: scleral icterus Ear exam: PRESENT: normal external ear exam Mouth exam: PRESENT: moist, tongue midline Neck exam: ABSENT: carotid bruit, JVD, lymphadenopathy, thyromegaly Respiratory exam: PRESENT: decreased breath sounds, symmetrical, unlabored. ABSENT: rales, rhonchi, tachypnea, wheezes Cardiovascular exam: PRESENT: RRR. ABSENT: diastolic murmur, rubs, systolic murmur Pulses: PRESENT: normal dorsalis pedis pul Vascular exam: PRESENT: normal capillary refill GI/Abdominal exam: PRESENT: normal bowel sounds, soft. ABSENT: distended, guarding, mass, organolmegaly, rebound, tenderness Rectal exam: PRESENT: deferred Extremities exam: PRESENT: full ROM. ABSENT: calf tenderness, clubbing, pedal edema Neurological exam: PRESENT: alert, awake, oriented to person, oriented to place , oriented to time, oriented to situation, CN II-XII grossly intact. ABSENT: motor sensory deficit Psychiatric exam: PRESENT: appropriate affect, normal mood. ABSENT: homicidal ideation, suicidal ideation Skin exam: PRESENT: dry, intact, warm. ABSENT: cyanosis, rash Results Laboratory Results: 12/06/16 06:58 12/06/16 06:58 12/06/16 12/06/16 06:58 06:58 WBC 7.3 RBC 4.03 Hgb 10.9 L Hct 31.9 L MCV 79 L MCH 27.0 MCHC 34.0 RDW 18.0 H Plt Count 256 Seg Neutrophils % 84.5 H Lymphocytes % 9.6 L Monocytes % 4.7 Eosinophils % 0.7 Basophils % 0.5 Absolute Neutrophils 6.1 Absolute Lymphocytes 0.7 Absolute Monocytes 0.3 Absolute Eosinophils 0.0 Absolute Basophils 0.0 Sodium 144.5 Potassium 3.7 Chloride 105 Carbon Dioxide 30 Anion Gap 10 BUN 12 Creatinine 0.89 Est GFR ( Amer) > 60 Est GFR (Non-Af Amer) > 60 Glucose 174 H Calcium 8.8 Impressions: Chest X-Ray 12/05/16 21:53 IMPRESSION: Increased density in the left upper lung feel posteriorly which could represent atelectatic changes or minimal pneumonic infiltrate. Remaining lung aviles are clear. Other findings as noted above Chest CT 12/06/16 00:00 IMPRESSION: Postradiation changes left lung. Decreased left pleural effusion. Stable right pulmonary nodules Assessment & Plan - Diagnosis (1) Pneumonia involving left lung Qualifiers: Pneumonia type: due to unspecified organism Lung location: upper lobe of lung Qualified Code(s): J18.1 - Lobar pneumonia, unspecified organism Is this a current diagnosis for this admission?: YesPlan: Most likely postobstructive process as per previous admission. Will continue Zosyn for now. Will repeat CT imaging for restaging. Patient is producing significant amount of sputum. Will add flutter valve and incentive spirometry. (2) COPD exacerbation Is this a current diagnosis for this admission?: Yes (3) Acute and chronic respiratory failure with hypoxia Is this a current diagnosis for this admission?: YesPlan: Overall much improved the patient feels almost back to baseline. She is able to fully complete sentences at this time. Selected Entries 12/05/16 12/05/16 21:59 23:00 Respiratory 25 H Rate Blood Pressure 88/42 L (4) UTI (urinary tract infection) Qualifiers: Urinary tract infection type: site unspecified Hematuria presence: with hematuria Qualified Code(s): N39.0 - Urinary tract infection, site not specified Is this a current diagnosis for this admission?: YesPlan: Gram-negative rods. Will continue Zosyn and await finalization on culture (5) Coronary artery disease Qualifiers: Coronary Disease-Associated Artery/Lesion type: [place] artery [place] vs. transplanted heart: [place] heart Associated angina: without angina Qualified Code(s): I25.10 - Atherosclerotic heart disease of [place] coronary artery without angina pectoris Is this a current diagnosis for this admission?: Yes (6) Diabetes mellitus type II, controlled, with no complications Qualifiers: Diabetes mellitus national sales trainer insulin use: with intermediate use Qualified Code(s): E11.9 - Type 2 diabetes mellitus without complications (7) HLD (hyperlipidemia) Qualifiers: Hyperlipidemia type: unspecified Qualified Code(s): E78.5 - Hyperlipidemia, unspecified Is this a current diagnosis for this admission?: Yes (8) Hypothyroidism Qualifiers: Hypothyroidism type: unspecified Qualified Code(s): E03.9 - Hypothyroidism, unspecified Is this a current diagnosis for this admission?: YesPlan: Will continue home medications. (9) History of lung cancer Is this a current diagnosis for this admission?: Yes (10) Oxygen dependent Is this a current diagnosis for this admission?: Yes (11) Steroid dependent Is this a current diagnosis for this admission?: Yes (12) DVT prophylaxis Is this a current diagnosis for this admission?: Yes (13) Do not resuscitate Is this a current diagnosis for this admission?: Yes - Time Time Spent with patient: 35 or more minutes Medications reviewed and adjusted accordingly: Yes Anticipated discharge: Other Within: within 72 hours Disposition: The patient is a DO NOT RESUSCITATE DO NOT INTUBATE. Pending patient's symptomatology and diagnostic findings will reevaluate as needed.
[2016-12-06] MEDS ORDERED: INSULIN ASPART PROTAM SQ SCH (17:45)
[2016-12-06] MEDS ORDERED: ASPART SQ SCH (17:45)
[2016-12-06] MEDS: CARVEDILOL 3.125 MG TABLET PO SCH (21:56)
[2016-12-06] MEDS: ATORVASTATIN CALCIUM 10 MG TABLET PO SCH (21:57)
[2016-12-07] MEDS: HYDROCORTISONE SOD SUCCINATE INJ/PF 100 MG/2 ML SDV IV SCH ×3 (03:29→20:16)
[2016-12-07] MEDS: PIPERACILLIN SODIUM/TAZOBACTAM 3.375 GM in NORMAL SALINE 100 ML IV SCH ×3 (05:56→17:06)
[2016-12-07] MEDS: LANSOPRAZOLE 30 MG TAB.RAP.DR PO SCH ×3 (05:56→21:47)
[2016-12-07] MEDS: IPRATROPIUM/ALBUTEROL 0.5-2.5 MG/3 ML AMPUL NEB SCH ×3 (07:56→20:59)
[2016-12-07] MEDS: INSULIN LISPRO 100 UNIT/ML 3 ML VIAL SUBCUT PRN ×4 (08:16→23:39)
[2016-12-07] MEDS ORDERED: BISACODYL 10 MG SUPP.RECT PR PRN (09:57)
[2016-12-07] MEDS ORDERED: LEVOTHYROXINE SODIUM 0.05 MG TABLET PO SCH (10:00)
--- NOTE | 2016-12-07 10:06 | PDOC PROGRESS REPORT ---
Subjective Progress Note for:: 12/07/16 Subjective:: The patient was seen earlier today on rounds. Symptoms have improved since admission. The patient denies any nausea, vomiting, diarrhea, shortness of breath, dizziness, chest pain, heart palpitations, fevers, or chills. The patient has remained afebrile. Blood pressures have been in a good range. When prompted the patient voices no other concerns at this time. Review of systems: The rest of the review of systems is negative. Physical Exam Vital Signs: Temp Pulse Resp BP Pulse Ox 97.3 F 78 16 106/79 96 12/07/16 07:12 12/07/16 08:27 12/07/16 07:56 12/07/16 07:12 12/07/16 07:56 Intake & Output 12/05/16 12/06/16 12/07/16 23:59 23:59 23:59 Intake Total 1975 200 Output Total 400 400 Balance 1575 -200 General appearance: PRESENT: no acute distress, cooperative, well-developed, well-nourished Head exam: PRESENT: atraumatic, normocephalic Eye exam: PRESENT: conjunctiva pink, EOMI, PERRLA. ABSENT: scleral icterus Ear exam: PRESENT: normal external ear exam Mouth exam: PRESENT: moist, tongue midline Neck exam: ABSENT: carotid bruit, JVD, lymphadenopathy, thyromegaly Respiratory exam: PRESENT: decreased breath sounds, symmetrical, unlabored, wheezes. ABSENT: rales, rhonchi, tachypnea, Cardiovascular exam: PRESENT: RRR. ABSENT: diastolic murmur, rubs, systolic murmur Pulses: PRESENT: normal dorsalis pedis pul Vascular exam: PRESENT: normal capillary refill GI/Abdominal exam: PRESENT: normal bowel sounds, soft. ABSENT: distended, guarding, mass, organolmegaly, rebound, tenderness Rectal exam: PRESENT: deferred Extremities exam: PRESENT: full ROM. ABSENT: calf tenderness, clubbing, pedal edema Neurological exam: PRESENT: alert, awake, oriented to person, oriented to place , oriented to time, oriented to situation, CN II-XII grossly intact. ABSENT: motor sensory deficit Psychiatric exam: PRESENT: appropriate affect, normal mood. ABSENT: homicidal ideation, suicidal ideation Skin exam: PRESENT: dry, intact, warm. ABSENT: cyanosis, rash Results Laboratory Results: 12/06/16 06:58 12/06/16 06:58 Impressions: Chest X-Ray 12/05/16 21:53 IMPRESSION: Increased density in the left upper lung feel posteriorly which could represent atelectatic changes or minimal pneumonic infiltrate. Remaining lung aviles are clear. Other findings as noted above Chest CT 12/06/16 00:00 IMPRESSION: Postradiation changes left lung. Decreased left pleural effusion. Stable right pulmonary nodules Assessment & Plan - Diagnosis (1) Pneumonia involving left lung Qualifiers: Pneumonia type: due to unspecified organism Lung location: upper lobe of lung Qualified Code(s): J18.1 - Lobar pneumonia, unspecified organism Is this a current diagnosis for this admission?: YesPlan: Most likely postobstructive process as per previous admission. Will continue Zosyn for now. Repeat CT imaging for restaging was stable. Patient is producing significant amount of sputum. Will continue flutter valve and incentive spirometry. (2) COPD exacerbation Is this a current diagnosis for this admission?: YesPlan: Continue o2 (3) Acute and chronic respiratory failure with hypoxia Is this a current diagnosis for this admission?: YesPlan: Overall much improved the patient feels almost back to baseline. She is able to fully complete sentences at this time. Selected Entries 12/05/16 12/05/16 21:59 23:00 Respiratory 25 H Rate Blood Pressure 88/42 L (4) UTI (urinary tract infection) Qualifiers: Urinary tract infection type: site unspecified Hematuria presence: with hematuria Qualified Code(s): N39.0 - Urinary tract infection, site not specified Is this a current diagnosis for this admission?: YesPlan: Gram-negative rods. Will continue Zosyn and await finalization on culture (5) Coronary artery disease Qualifiers: Coronary Disease-Associated Artery/Lesion type: [place] artery [place] vs. transplanted heart: [place] heart Associated angina: without angina Qualified Code(s): I25.10 - Atherosclerotic heart disease of [place] coronary artery without angina pectoris Is this a current diagnosis for this admission?: Yes (6) Diabetes mellitus type II, controlled, with no complications Qualifiers: Diabetes mellitus tank terminal gauger insulin use: with correction use Qualified Code(s): E11.9 - Type 2 diabetes mellitus without complications Is this a current diagnosis for this admission?: YesPlan: Will resume home meds (7) HLD (hyperlipidemia) Qualifiers: Hyperlipidemia type: unspecified Qualified Code(s): E78.5 - Hyperlipidemia, unspecified Is this a current diagnosis for this admission?: Yes (8) Hypothyroidism Qualifiers: Hypothyroidism type: unspecified Qualified Code(s): E03.9 - Hypothyroidism, unspecified Is this a current diagnosis for this admission?: YesPlan: Will continue home medications. (9) History of lung cancer Is this a current diagnosis for this admission?: Yes (10) Oxygen dependent Is this a current diagnosis for this admission?: Yes (11) Steroid dependent Is this a current diagnosis for this admission?: Yes (12) DVT prophylaxis Is this a current diagnosis for this admission?: Yes (13) Do not resuscitate Is this a current diagnosis for this admission?: Yes - Time Time Spent with patient: 25-34 minutes Medications reviewed and adjusted accordingly: Yes Anticipated discharge: Home, Other Within: within 24 hours, within 48 hours
[2016-12-07] MEDS: HEPARIN SOD (PORCINE) 5,000 UNIT/ML 1 ML SYRINGE SUBCUT SCH ×2 (10:31→21:48)
[2016-12-07] MEDS: GUAIFENESIN 600 MG TABLET.SA PO SCH ×2 (10:33→21:47)
[2016-12-07] MEDS: FUROSEMIDE 20 MG TABLET PO SCH (10:33)
[2016-12-07] MEDS: ASPIRIN 81 MG TABLET, CHEWABLE PO SCH (10:33)
[2016-12-07] MEDS: CARVEDILOL 3.125 MG TABLET PO SCH ×2 (10:34→21:50)
[2016-12-07] MEDS ORDERED: BISACODYL 10 MG SUPP.RECT PR ONE (11:00)
[2016-12-07] MEDS ORDERED: FLUTICASONE/SALMETEROL DISKUS 250-50 MCG/DOSE IH ONE (11:00)
[2016-12-07] MEDS: DOCUSATE SODIUM 100 MG CAPSULE PO SCH ×2 (11:33→17:06)
[2016-12-07] MEDS: HUM INSULIN NPH/REG INSULIN HM 100 UNIT/1 ML 3 ML SUBCUT SCH (16:05)
[2016-12-07] MEDS: ATORVASTATIN CALCIUM 10 MG TABLET PO SCH (21:47)
[2016-12-07] MEDS: MONTELUKAST SODIUM 10 MG TABLET PO SCH (21:47)
[2016-12-07] MEDS ORDERED: DILTIAZEM HCL INJ 25 MG/5 ML VIAL IV ONE ×2 (21:58→22:47)
[2016-12-07] MEDS ORDERED: DILTIAZEM HCL INJ 25 MG/5 ML VIAL IV PRN (21:59)
[2016-12-07] MEDS: FLUTICASONE/SALMETEROL DISKUS 250-50 MCG/DOSE IH SCH (22:08)
[2016-12-07 22:51] LABS: ABSOLUTE LYMPHOCYTES (AUTO) 0.7 10^3/uL (0.5-4.7); ABSOLUTE MONOCYTES (AUTO) 0.4 10^3/uL (0.1-1.4); ABSOLUTE NEUT (AUTO) 11.9 10^3/uL (1.7-8.2); BASOPHILS % (AUTO) 0.3 % (0-2); HEMATOCRIT 33.7 % (36.0-47.0); HEMOGLOBIN 10.8 g/dL (12.0-15.5); HGB HCT DIFFERENCE -1.3; LYMPHOCYTES % (AUTO) 5.1 % (13-45); MEAN CORPUSCULAR HEMOGLOBIN 25.7 pg (27.0-33.4); MEAN CORPUSCULAR HGB CONC 32.1 g/dL (32.0-36.0); MEAN CORPUSCULAR VOLUME 80 fl (80-97); MONOCYTES % (AUTO) 2.8 % (3-13); RED CELL DISTRIBUTION WIDTH 18.2 % (11.5-14.0); SEGMENTED NEUTROPHILS % (AUTO) 91.8 % (42-78); WHITE BLOOD COUNT 12.9 10^3/uL (4.0-10.5)
[2016-12-07 23:03] LABS: ANION GAP 10 (5-19); BLOOD UREA NITROGEN 16 mg/dL (7-20); CALCIUM 9.4 mg/dL (8.4-10.2); CARBON DIOXIDE 33 mmol/L (22-30); CHLORIDE 104 mmol/L (98-107); CREATINE KINASE 23 U/L (30-135); CREATININE RESULT 1.46 mg/dL (0.52-1.25); GLUCOSE 240 mg/dL (75-110); MAGNESIUM 2.2 mg/dL (1.6-2.3); POTASSIUM 3.3 mmol/L (3.6-5.0); SODIUM 147.4 mmol/L (137-145)
[2016-12-07 23:16] LABS: CREATINE KINASE MB 1.52 ng/mL (<4.55); TROPONIN I < 0.012 ng/mL
[2016-12-08] MEDS ORDERED: POTASSIUM CHLORIDE 20 MEQ/15 ML UDCUP PO ONE ×2 (00:41→02:30)
[2016-12-08] MEDS: PIPERACILLIN SODIUM/TAZOBACTAM 3.375 GM in NORMAL SALINE 100 ML IV SCH ×5 (01:01→23:02)
[2016-12-08] MEDS ORDERED: DILTIAZEM HCL/D5W 125 ML IV PRN ×2 (01:12→10:56)
[2016-12-08] MEDS ORDERED: 1/2 NORMAL SALINE 500 ML IV ONE (02:00)
[2016-12-08] MEDS: HYDROCORTISONE SOD SUCCINATE INJ/PF 100 MG/2 ML SDV IV SCH ×3 (03:07→22:55)
[2016-12-08 05:17] LABS: ANION GAP 11 (5-19); BLOOD UREA NITROGEN 17 mg/dL (7-20); CALCIUM 8.9 mg/dL (8.4-10.2); CARBON DIOXIDE 29 mmol/L (22-30); CHLORIDE 108 mmol/L (98-107); CREATININE RESULT 1.21 mg/dL (0.52-1.25); GLUCOSE 319 mg/dL (75-110); MAGNESIUM 2.2 mg/dL (1.6-2.3); POTASSIUM 4.2 mmol/L (3.6-5.0); SODIUM 147.5 mmol/L (137-145)
[2016-12-08] MEDS: LEVOTHYROXINE SODIUM 0.05 MG TABLET PO SCH (05:55)
[2016-12-08] MEDS: LANSOPRAZOLE 30 MG TAB.RAP.DR PO SCH ×2 (05:56→16:52)
--- NOTE | 2016-12-08 07:05 | EKG REPORT ---
SEVERITY:- ABNORMAL ECG - ATRIAL FIBRILLATION VENTRICULAR PREMATURE COMPLEX REPOLARIZATION ABNORMALITY, PROB RATE RELATED : Confirmed by: Valerio Duarte MD 08-Dec-2016 07:04:37
[2016-12-08] MEDS: HUM INSULIN NPH/REG INSULIN HM 100 UNIT/1 ML 3 ML SUBCUT SCH ×2 (07:36→16:51)
[2016-12-08] MEDS: INSULIN LISPRO 100 UNIT/ML 3 ML VIAL SUBCUT PRN ×4 (07:37→23:03)
[2016-12-08] MEDS: IPRATROPIUM/ALBUTEROL 0.5-2.5 MG/3 ML AMPUL NEB SCH (07:42)
--- NOTE | 2016-12-08 11:10 | PDOC CONSULTATION ---
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 Reportedly was placed on antibiotics at the assisted, but uncertain as to which specific antibiotic. Also, review of her assisted medication list fails to reveal antibiotic. Of note, patient is not the best historian. She's had no other complaint in terms of nausea vomiting, fever or chills, chest or or abdominal pain. No diarrhea. No dysuria. Intermittently mildly hypotensive in the emergency room, but this has responded nicely to IV fluid boluses. Currently resting quietly, stating she does feel better. This history was reviewed, supplemented and confirmed. Patient main symptoms are marked fatigue and tiredness. She is denying any chest pain. Past Medical History Cardiac Medical History: Reports: Congestive Heart Failure, Coronary Artery Disease, Hyperlipidema, Hypertension Denies: DVT, Pulmonary Embolism Pulmonary Medical History: Reports: Chronic Obstructive Pulmonary Disease (COPD) Denies: Asthma, Sleep Apnea EENT Medical History: Reports: Eyes - Wears glasses, Ears - Partial hearing loss , Other - Easy bruising Denies: Throat Neurological Medical History: Denies: Hemorrhagic CVA, Ischemic CVA, Seizures Endocrine Medical History: Reports: Diabetes Mellitus Type 2, Hypothyroidism Denies: Hyperthyroidism Renal/ Medical History: Reports: Chronic Kidney Disease Malignancy Medical History: Reports: Lung Cancer GI Medical History: Denies: Cirrhosis, Gastroesophageal Reflux Disease, Hepatitis, Peptic Ulcer Disease Musculoskeltal Medical History: Reports: None Skin Medical History: Reports: None Psychiatric Medical History: Denies: Alcohol Dependency, Depression, General Anxiety Disorder, Substance Abuse, Tobacco Dependency Hematology: Reports: Other - Easy bruising Infectious Medical History: Denies: Clostridium Difficile, Hepatitis B, Hepatitis C, Methicillin- Resistant Staph Aureus Past Surgical History Past Surgical History: Reports: Appendectomy, Hysterectomy Social History Information Source: Patient Lives with: Detention Smoking Status: Former Smoker Frequency of Alcohol Use: None Hx Recreational Drug Use: No Drugs: None Hx Prescription Drug Abuse: No - Advance Directive Resuscitation Status: Full Code Family History Family History: Reviewed & Not Pertinent, Malignancy Parental Family History Reviewed: Yes Children Family History Reviewed: Yes Sibling(s) Family History Reviewed.: Yes Medication/Allergy Home Medications: Aspirin [Aspirin 81 mg Chewable Tablet] 81 mg PO DAILY 12/06/16 Atorvastatin Calcium [Lipitor 10 mg Tablet] 10 mg PO QHS 12/06/16 Carvedilol [Coreg 3.125 mg Tablet] 3.125 mg PO Q12 12/06/16 Ergocalciferol (Vitamin D2) [Drisdol 50,000 Unit (1.25MG) Capsule] 1 cap PO MO 12/06/16 Furosemide [Lasix] 20 mg PO DAILY 12/06/16 Insulin Aspart Protam & Aspart [Novolog Mix 70-30 Vial] 40 unit SQ BIDACBS 12/06 Levalbuterol HCl [Xopenex Neb 1.25 mg/3 ml Ampul] 1.25 mg NEB [id number] PRN Levothyroxine Sodium [Synthroid 50 Mcg Tablet] 50 mcg PO DAILY 12/06/16 Melatonin 1 mg PO QHS 12/06/16 Pantoprazole Sodium [Protonix] 40 mg PO QHS 12/06/16 Prednisone [Deltasone 20 mg Tablet] 20 mg PO DAILY 12/06/16 Allergies/Adverse Reactions: No Known Allergies Allergy (Unverified 10/16/15 06:35) Review of Systems Review of Systems: Please see history of present illness and past medical history as wall. Constitutional: Patient claims low-grade fever, marked fatigue and tiredness. Head : No recent chronic headaches, recent head injury. Eyes: No recent eye pain, diplopia, redness, discharge, acute visual changes. Ears: No recent chronic ear pain, acute hearing loss, ear discharge. Oral cavity: No recent ulcerations, bleeding, oral cavity discomfort. Neck: No recent acute neck pain reported. Hematologic: No recent easy bruising or bleeding or hematologic malignancy reported. Patient describes history of easy bruising. She has history of lung cancer. Lymphatic: No recent lymphatic malignancy, chronic lymphadenopathy reported yet Cardiovascular system review: See history of present illness. Patient denied recent syncope or near syncope. Respiratory system review: No recent chronic cough, hemoptysis, blood clots in the lungs reported. Shortness of breath on exertion Gastrointestinal system review: Negative for any recent acute or chronic abdominal pain, hematemesis, melena, recent change in bowel habits. Genitourinary system review: No recent acute or chronic hematuria, flank pain, UTI etc. reported. Skin system review: Negative for any recent abnormal bruising, no rash, no pruritus reported. Neurologic: No prior history of strokes, mini strokes, seizure disorder. Psychologic: No history of major psychosis or major depression reported. Musculoskeletal: Minor aches and pains reported. No acute joint swelling reported. Endocrine: No recent polyuria, polydipsia, recent heat or cold intolerance. Physical Exam Vital Signs: Temp Pulse Resp BP Pulse Ox 97.5 F 124 H 21 H 112/55 L 99 12/08/16 08:18 12/08/16 10:00 12/08/16 08:18 12/08/16 10:00 12/08/16 08:18 Intake & Output 12/07/16 12/08/16 12/09/16 06:59 06:59 06:59 Intake Total 2175 2018 Output Total 800 1000 Balance 1375 1018 Weight 69 kg Exam: GENERAL: well-nourished and in no acute distress. Alert and oriented x3 HEAD: Atraumatic, normocephalic. EYES: Pupils equal round and reactive to light, extraocular movements intact, sclera anicteric, conjunctiva are normal. ENT: TMs normal, nares patent, oropharynx clear without exudates. Moist mucous membranes. No oral ulcerations or bleeding gums noted NECK: supple without lymphadenopathy. Trachea is central. No cervical or axillary lymphadenopathy noted. Carotids are 2+, JVD WNL LUNGS: Respiration seems nonlabored, no significant accessory muscle action noted. Breath sounds clear to auscultation bilaterally and equal noted. No wheezes rales or rhonchi noted. No significant dullness noted on percussion. CHEST: Palpation of the chest wall shows no significant chest wall tenderness. No other significant abnormalities noted. HEART: [place] [employer], No PSH, 1/6 AMY aortic area, 1/6 [place] systolic murmur mitral area, no rubs, no gallops. ABDOMEN: Soft, no significant tenderness appreciated, normoactive bowel sounds. No guarding, no rebound. No rigidity noted . No masses appreciated. EXTREMITIES: Pedal pulses are 1-2+, no calf tenderness noted. No clubbing or cyanosis.trace to 1+ pedal edema noted NEUROLOGICAL: Focused neurological exam showed no significant neurologic deficit. Normal speech, no focal weakness appreciated. PSYCH: Normal mood, normal affect. Judgment and insight within normal limits. SKIN: No significant ecchymosis, rash, ulcerations or signs of pruritus noted. MUSCULOSKELETAL EXAM: No significant joint swelling noted. Results Laboratory Results: 12/07/16 22:35 12/08/16 04:34 12/07/16 12/07/16 12/08/16 22:35 22:35 04:34 WBC 12.9 H RBC 4.20 Hgb 10.8 L Hct 33.7 L MCV 80 MCH 25.7 L MCHC 32.1 RDW 18.2 H Plt Count 335 Seg Neutrophils % 91.8 H Lymphocytes % 5.1 L Monocytes % 2.8 L Eosinophils % 0.0 Basophils % 0.3 Absolute Neutrophils 11.9 H Absolute Lymphocytes 0.7 Absolute Monocytes 0.4 Absolute Eosinophils 0.0 Absolute Basophils 0.0 Sodium 147.4 H 147.5 H Potassium 3.3 L 4.2 Chloride 104 108 H Carbon Dioxide 33 H 29 Anion Gap 10 11 BUN 16 17 Creatinine 1.46 H 1.21 Est GFR ( Amer) 42 L 52 L Est GFR (Non-Af Amer) 34 L 43 L Glucose 240 H 319 H Calcium 9.4 8.9 Magnesium 2.2 2.2 12/07/16 12/07/16 22:35 22:35 Creatine Kinase 23 L CK-MB (CK-2) 1.52 Troponin I < 0.012 EKG Comments: Atrial fibrillation with somewhat of a rapid ventricular response and some ST-T wave changes either rate related or ischemic Impressions: Chest X-Ray 12/05/16 21:53 IMPRESSION: Increased density in the left upper lung feel posteriorly which could represent atelectatic changes or minimal pneumonic infiltrate. Remaining lung aviles are clear. Other findings as noted above Chest CT 12/06/16 00:00 IMPRESSION: Postradiation changes left lung. Decreased left pleural effusion. Stable right pulmonary nodules Assessment & Plan - Diagnosis (1) Atrial fibrillation with rapid ventricular response Is this a current diagnosis for this admission?: Yes (2) COPD exacerbation Is this a current diagnosis for this admission?: Yes (3) Pneumonia involving left lung Qualifiers: Pneumonia type: due to unspecified organism Lung location: upper lobe of lung Qualified Code(s): J18.1 - Lobar pneumonia, unspecified organism Is this a current diagnosis for this admission?: Yes (4) UTI (urinary tract infection) Qualifiers: Urinary tract infection type: site unspecified Hematuria presence: with hematuria Qualified Code(s): N39.0 - Urinary tract infection, site not specified Is this a current diagnosis for this admission?: Yes (5) Coronary artery disease Qualifiers: Coronary Disease-Associated Artery/Lesion type: [place] artery [place] vs. transplanted heart: [place] heart Associated angina: without angina Qualified Code(s): I25.10 - Atherosclerotic heart disease of [place] coronary artery without angina pectoris Is this a current diagnosis for this admission?: Yes (6) Chronic kidney disease Qualifiers: Chronic kidney disease stage: stage 2 (mild) Qualified Code(s): N18.2 - Chronic kidney disease, stage 2 (mild) Is this a current diagnosis for this admission?: Yes - Notes Notes: Atrial fibrillation: New onset, rapid ventricular response. Previous EKGs reviewed. Recommend chronic anticoagulation with ELIQUIS at 2.5 mg by mouth twice a day if no contraindication and for rate as well as rhythm control will start patient on Multaq 400 mg by mouth twice a day. Continue with Cardizem. COPD exacerbation: Continue bronchodilator therapy. Pneumonia left lung: Continue antibiotic therapy. UTI: Continue antibiotic therapy. Coronary artery disease: Symptomatically stable. Chronic kidney disease: Currently stable. Grade 2 chronic kidney disease. Avoid nephrotoxic agents. - Time Time Spent: 30 to 50 Minutes - More than 50% of the time spent coordinating care , discussing management plans with involved caregivers. Management plans discussed with involved personnels. Medical decision making was of moderate complexity.
[2016-12-08] MEDS: ASPIRIN 81 MG TABLET, CHEWABLE PO SCH (11:19)
[2016-12-08] MEDS: GUAIFENESIN 600 MG TABLET.SA PO SCH ×2 (11:20→22:55)
[2016-12-08] MEDS: DOCUSATE SODIUM 100 MG CAPSULE PO SCH ×2 (11:21→17:02)
[2016-12-08] MEDS: FUROSEMIDE 20 MG TABLET PO SCH (11:21)
[2016-12-08] MEDS: FLUTICASONE/SALMETEROL DISKUS 250-50 MCG/DOSE IH SCH ×2 (11:25→22:55)
[2016-12-08] MEDS: CARVEDILOL 3.125 MG TABLET PO SCH ×2 (11:26→11:33)
[2016-12-08] MEDS ORDERED: DRONEDARONE HYDROCHLORIDE 400 MG TABLET PO ONE (12:00)
--- NOTE | 2016-12-08 15:24 | PDOC PROGRESS REPORT ---
Subjective Progress Note for:: 12/08/16 Subjective:: The patient was seen earlier today on rounds. The patient admits to increasing shortness of breath with her heart rate being elevated. The patient was placed on Cardizem drip given her rapid ventricular response. The patient denies any nausea, vomiting, diarrhea, shortness of breath, dizziness, chest pain, heart palpitations, fevers, or chills. The patient has remained afebrile. Blood pressures have been in a good range. When prompted the patient voices no other concerns at this time. Review of systems: The rest of the review of systems is negative. Physical Exam Vital Signs: Temp Pulse Resp BP Pulse Ox 97.4 F 92 20 106/63 100 12/08/16 12:00 12/08/16 14:00 12/08/16 12:00 12/08/16 14:00 12/08/16 12:00 Intake & Output 12/06/16 12/07/16 12/08/16 23:59 23:59 23:59 Intake Total 1975 1468 750 Output Total 495 429 9177 Balance 1575 1068 -250 Weight 69 kg General appearance: PRESENT: no acute distress, cooperative, well-developed, well-nourished Head exam: PRESENT: atraumatic, normocephalic Eye exam: PRESENT: conjunctiva pink, EOMI, PERRLA. ABSENT: scleral icterus Ear exam: PRESENT: normal external ear exam Mouth exam: PRESENT: moist, tongue midline Neck exam: ABSENT: carotid bruit, JVD, lymphadenopathy, thyromegaly Respiratory exam: PRESENT: decreased breath sounds, symmetrical, unlabored, wheezes. ABSENT: rales, rhonchi, tachypnea, Cardiovascular exam: PRESENT: Irregularly irregular. ABSENT: diastolic murmur, rubs, systolic murmur Pulses: PRESENT: normal dorsalis pedis pul Vascular exam: PRESENT: normal capillary refill GI/Abdominal exam: PRESENT: normal bowel sounds, soft. ABSENT: distended, guarding, mass, organolmegaly, rebound, tenderness Rectal exam: PRESENT: deferred Extremities exam: PRESENT: full ROM. ABSENT: calf tenderness, clubbing, pedal edema Neurological exam: PRESENT: alert, awake, oriented to person, oriented to place , oriented to time, oriented to situation, CN II-XII grossly intact. ABSENT: motor sensory deficit Psychiatric exam: PRESENT: appropriate affect, normal mood. ABSENT: homicidal ideation, suicidal ideation Skin exam: PRESENT: dry, intact, warm. ABSENT: cyanosis, rash Results Laboratory Results: 12/07/16 22:35 12/08/16 04:34 12/07/16 12/07/16 12/08/16 22:35 22:35 04:34 WBC 12.9 H RBC 4.20 Hgb 10.8 L Hct 33.7 L MCV 80 MCH 25.7 L MCHC 32.1 RDW 18.2 H Plt Count 335 Seg Neutrophils % 91.8 H Lymphocytes % 5.1 L Monocytes % 2.8 L Eosinophils % 0.0 Basophils % 0.3 Absolute Neutrophils 11.9 H Absolute Lymphocytes 0.7 Absolute Monocytes 0.4 Absolute Eosinophils 0.0 Absolute Basophils 0.0 Sodium 147.4 H 147.5 H Potassium 3.3 L 4.2 Chloride 104 108 H Carbon Dioxide 33 H 29 Anion Gap 10 11 BUN 16 17 Creatinine 1.46 H 1.21 Est GFR ( Amer) 42 L 52 L Est GFR (Non-Af Amer) 34 L 43 L Glucose 240 H 319 H Calcium 9.4 8.9 Magnesium 2.2 2.2 12/07/16 12/07/16 22:35 22:35 Creatine Kinase 23 L CK-MB (CK-2) 1.52 Troponin I < 0.012 Impressions: Chest CT 12/06/16 00:00 IMPRESSION: Postradiation changes left lung. Decreased left pleural effusion. Stable right pulmonary nodules Chest X-Ray 12/08/16 10:27 IMPRESSION: VOLUME LOSS ON THE LEFT SIDE. CHRONIC SCARRING. NO SIGNIFICANT CHANGE. Assessment & Plan - Diagnosis (1) Atrial fibrillation with rapid ventricular response Is this a current diagnosis for this admission?: YesPlan: Do appreciate cardiology's input with this. Will continue triple current parameters. Most likely this is multifocal including infectious process as well as nebulizers. Have decreased nebs to when necessary. (2) Pneumonia involving left lung Qualifiers: Pneumonia type: due to unspecified organism Lung location: upper lobe of lung Qualified Code(s): J18.1 - Lobar pneumonia, unspecified organism Is this a current diagnosis for this admission?: YesPlan: Most likely postobstructive process as per previous admission. Will continue Zosyn for now. Repeat CT imaging for restaging was stable. Patient is producing significant amount of sputum. Will continue flutter valve and incentive spirometry. (3) COPD exacerbation Is this a current diagnosis for this admission?: YesPlan: Continue o2 (4) Acute and chronic respiratory failure with hypoxia Is this a current diagnosis for this admission?: YesPlan: Overall much improved the patient feels almost back to baseline. She is able to fully complete sentences at this time. Selected Entries 12/05/16 12/05/16 21:59 23:00 Respiratory 25 H Rate Blood Pressure 88/42 L (5) UTI (urinary tract infection) Qualifiers: Urinary tract infection type: site unspecified Hematuria presence: with hematuria Qualified Code(s): N39.0 - Urinary tract infection, site not specified Is this a current diagnosis for this admission?: YesPlan: E-coli. Will continue Zosyn and await finalization on culture (6) Coronary artery disease Qualifiers: Coronary Disease-Associated Artery/Lesion type: [place] artery [place] vs. transplanted heart: [place] heart Associated angina: without angina Qualified Code(s): I25.10 - Atherosclerotic heart disease of [place] coronary artery without angina pectoris Is this a current diagnosis for this admission?: Yes (7) Diabetes mellitus type II, controlled, with no complications Qualifiers: Diabetes mellitus superintendent terminal insulin use: with long-term use Qualified Code(s): E11.9 - Type 2 diabetes mellitus without complications Is this a current diagnosis for this admission?: YesPlan: Will resume home meds (8) HLD (hyperlipidemia) Qualifiers: Hyperlipidemia type: unspecified Qualified Code(s): E78.5 - Hyperlipidemia, unspecified Is this a current diagnosis for this admission?: Yes (9) Hypothyroidism Qualifiers: Hypothyroidism type: unspecified Qualified Code(s): E03.9 - Hypothyroidism, unspecified Is this a current diagnosis for this admission?: YesPlan: Will continue home medications. (10) History of lung cancer Is this a current diagnosis for this admission?: Yes (11) Oxygen dependent Is this a current diagnosis for this admission?: Yes (12) Steroid dependent Is this a current diagnosis for this admission?: Yes (13) DVT prophylaxis Is this a current diagnosis for this admission?: Yes (14) Do not resuscitate Is this a current diagnosis for this admission?: Yes - Time Time Spent with patient: 35 or more minutes Medications reviewed and adjusted accordingly: Yes Anticipated discharge: Home Within: within 24 hours, within 48 hours Disposition: The patient is a DO NOT RESUSCITATE DO NOT INTUBATE. Pending patient's symptomatology and diagnostic findings will reevaluate as needed.
[2016-12-08] MEDS: APIXABAN 2.5 MG TABLET PO SCH (17:02)
--- NOTE | 2016-12-08 19:48 | XCELERA REPORT ---
[address] [address] Transthoracic Echocardiogram Report Name: JATINDER RODRIGUEZ Age: 81 yrs Gender: Female : 1935 Patient Status: Inpatient Patient Location: [id number]\S\304\S\B Study Date: 12/08/2016 08:54 AM Height: 62 in Weight: 152 lb BSA: 1.7 m2 Procedure: A complete two-dimensional transthoracic echocardiogram was performed (2D, M-mode, spectral and color flow Doppler). The study was technically adequate with some images being suboptimal in quality. Reason For Study: new afib Ordering Physician: GURMEET AYOUB Performed By: Arminda Alexandre Interpretation Summary The left ventricular ejection fraction is normal. There is mild concentric left ventricular hypertrophy. LV diastolic function could not be adequately assessed. The left ventricle is grossly normal size. Wall motion cannot be accurately commented on, but no definite regional wall motion abnormalities noted. There is normal right ventricular wall thickness. The right ventricular systolic function is normal. The left atrium is mildly dilated. The right atrium is normal in size There is a mild amount of mitral regurgitation There is no mitral valve stenosis. No aortic regurgitation is present. There is no aortic valve stenosis There is a mild amount of tricuspid regurgitation Tricuspid regurgitation jet envelope not well defined to measure RV systolic pressure accurately. The aortic root is not well visualized. The inferior vena cava was not well visualized There is no pericardial effusion. MMode/2D Measurements \T\ Calculations RVDd: 3.4 cm LVIDd: 3.0 cm FS: 31.0 % Ao root diam: 3.5 cm IVSd: 1.1 cm LVIDs: 2.1 cm EDV(Teich): 34.2 ml LVPWd: 0.97 cm ESV(Teich): 13.6 ml Ao root area: 9.6 cm2 EF(Teich): 60.3 % LA dimension: 3.0 cm Doppler Measurements \T\ Calculations MV E max kenya: MV P1/2t max kenya: Ao V2 max: LV V1 max P.1 cm/sec 109.1 cm/sec 105.9 cm/sec 1.8 mmHg MV P1/2t: 40.1 msec Ao max PG: LV V1 max: 4.5 mmHg 67.1 cm/sec MVA(P1/2t): 5.5 cm2 MV dec slope: 796.8 cm/sec2 PA V2 max: TR max kenya: 77.5 cm/sec 251.9 cm/sec PA max P.4 mmHgTR max P.4 mmHg Left Ventricle The left ventricle is grossly normal size. There is mild concentric left ventricular hypertrophy. The left ventricular ejection fraction is normal. LV diastolic function could not be adequately assessed. Wall motion cannot be accurately commented on, but no definite regional wall motion abnormalities noted. Right Ventricle The right ventricle is mildly dilated. There is normal right ventricular wall thickness. The right ventricular systolic function is normal. Atria The right atrium is normal in size. The left atrium is mildly dilated. Interarterial septum not well visualized and not well dopplered. Cannot comment on ASD/PFO presence. Mitral Valve The mitral valve leaflets are sclerotic, but show no functional abnormalities. There is no mitral valve stenosis. There is a mild amount of mitral regurgitation. Aortic Valve The aortic valve is mildly calcified. There is no aortic valve stenosis. No aortic regurgitation is present. Tricuspid Valve The tricuspid valve is not well visualized, but is grossly normal. There is no tricuspid stenosis. There is a mild amount of tricuspid regurgitation. Tricuspid regurgitation jet envelope not well defined to measure RV systolic pressure accurately. Pulmonic Valve The pulmonic valve is not well visualized. Great Vessels The aortic root is not well visualized. The inferior vena cava was not well visualized. Effusions There is no pericardial effusion. : GURMEET AYOUB Shyamal
[2016-12-08] MEDS: ACETAMINOPHEN 325 MG TABLET PO PRN (20:20)
[2016-12-08] MEDS: DRONEDARONE HYDROCHLORIDE 400 MG TABLET PO SCH (22:55)
[2016-12-08] MEDS: ATORVASTATIN CALCIUM 10 MG TABLET PO SCH (22:55)
[2016-12-08] MEDS: MONTELUKAST SODIUM 10 MG TABLET PO SCH (22:55)
[2016-12-09 05:40] LABS: ANION GAP 9 (5-19); BLOOD UREA NITROGEN 27 mg/dL (7-20); CALCIUM 9.4 mg/dL (8.4-10.2); CARBON DIOXIDE 30 mmol/L (22-30); CHLORIDE 108 mmol/L (98-107); CREATININE RESULT 1.15 mg/dL (0.52-1.25); GLUCOSE 182 mg/dL (75-110); MAGNESIUM 2.2 mg/dL (1.6-2.3); POTASSIUM 3.7 mmol/L (3.6-5.0); SODIUM 147.1 mmol/L (137-145)
[2016-12-09] MEDS: LEVOTHYROXINE SODIUM 0.05 MG TABLET PO SCH (06:00)
[2016-12-09] MEDS: LANSOPRAZOLE 30 MG TAB.RAP.DR PO SCH ×2 (06:00→17:38)
[2016-12-09] MEDS: HYDROCORTISONE SOD SUCCINATE INJ/PF 100 MG/2 ML SDV IV SCH (06:00)
[2016-12-09] MEDS: PIPERACILLIN SODIUM/TAZOBACTAM 3.375 GM in NORMAL SALINE 100 ML IV SCH (06:01)
--- NOTE | 2016-12-09 10:12 | EKG REPORT ---
SEVERITY:- ABNORMAL ECG - SINUS RHYTHM VENTRICULAR PREMATURE COMPLEX NONSPECIFIC T ABNORMALITIES, LATERAL LEADS BORDERLINE PROLONGED QT INTERVAL : Confirmed by: Valerio Duarte MD 09-Dec-2016 10:12:06
--- NOTE | 2016-12-09 10:15 | PDOC PROGRESS REPORT ---
Subjective Progress Note for:: 12/09/16 Subjective:: The patient was seen earlier today on rounds. The patient admits to healing better in comparison to yesterday. The patient remains on Cardizem drip with a normal rate as per cardiology. The patient denies any nausea, vomiting, diarrhea, dizziness, chest pain, heart palpitations, fevers, or chills. Still has dyspnea with activity. The patient has remained afebrile. Blood pressures have been in a good range. When prompted the patient voices no other concerns at this time. Review of systems: The rest of the review of systems is negative. History: Ms. Girard is an extremely pleasant 81-year-old female that is well known to the hospitalist service with home oxygen dependency. Patient was admitted to be in the 2016 with pneumonia that was thought to be postobstructive given a previous lung malignancy. Patient is followed by Dr. Dagoberto De La Cruz in [place] oncologist. This week the patient was admitted with pneumonia this admission and was scheduled to have a restaging chest CT done outpatient. Patient is also noted to have a UTI. Given the patient's admission this was completed and nodules appear stable in comparison to previous study. The patient has an appointment with her oncologist on Sunday. During the patient's stay she did develop rapid ventricular response and was started on a Cardizem drip. The patient's epic cadence specialists is Dr. Joyce and he was consult to see the patient. Multaq was additionally added and the patient has not been on this for 24 hours yet however her rate is much improved. Today the patient be transitioned to by mouth medications, ambulated, observed and if the patient tolerates this can be discharged in the a.m. Physical Exam Vital Signs: Temp Pulse Resp BP Pulse Ox 97.4 F 95 18 92/56 L 96 12/09/16 03:22 12/09/16 08:00 12/09/16 08:00 12/09/16 06:01 12/09/16 08:00 Intake & Output 12/07/16 12/08/16 12/09/16 23:59 23:59 23:59 Intake Total 1468 1667 924 Output Total 400 1000 1425 Balance 1068 667 -501 Weight 69 kg General appearance: PRESENT: no acute distress, cooperative, well-developed, well-nourished Head exam: PRESENT: atraumatic, normocephalic Eye exam: PRESENT: conjunctiva pink, EOMI, PERRLA. ABSENT: scleral icterus Ear exam: PRESENT: normal external ear exam Mouth exam: PRESENT: moist, tongue midline Neck exam: ABSENT: carotid bruit, JVD, lymphadenopathy, thyromegaly Respiratory exam: PRESENT: decreased breath sounds, symmetrical, unlabored, course. ABSENT: rales, rhonchi, tachypnea, Cardiovascular exam: PRESENT: Irregularly irregular. ABSENT: diastolic murmur, rubs, systolic murmur Pulses: PRESENT: normal dorsalis pedis pul Vascular exam: PRESENT: normal capillary refill GI/Abdominal exam: PRESENT: normal bowel sounds, soft. ABSENT: distended, guarding, mass, organolmegaly, rebound, tenderness Rectal exam: PRESENT: deferred Extremities exam: PRESENT: full ROM. ABSENT: calf tenderness, clubbing, pedal edema Neurological exam: PRESENT: alert, awake, oriented to person, oriented to place , oriented to time, oriented to situation, CN II-XII grossly intact. ABSENT: motor sensory deficit Psychiatric exam: PRESENT: appropriate affect, normal mood. ABSENT: homicidal ideation, suicidal ideation Skin exam: PRESENT: dry, intact, warm. ABSENT: cyanosis, rash Results Laboratory Results: 12/07/16 22:35 12/09/16 04:39 12/09/16 04:39 Sodium 147.1 H Potassium 3.7 Chloride 108 H Carbon Dioxide 30 Anion Gap 9 BUN 27 H Creatinine 1.15 Est GFR ( Amer) 55 L Est GFR (Non-Af Amer) 45 L Glucose 182 H Calcium 9.4 Magnesium 2.2 12/07/16 12/07/16 22:35 22:35 Creatine Kinase 23 L CK-MB (CK-2) 1.52 Troponin I < 0.012 Impressions: Chest CT 12/06/16 00:00 IMPRESSION: Postradiation changes left lung. Decreased left pleural effusion. Stable right pulmonary nodules Chest X-Ray 12/08/16 10:27 IMPRESSION: VOLUME LOSS ON THE LEFT SIDE. CHRONIC SCARRING. NO SIGNIFICANT CHANGE. Assessment & Plan - Diagnosis (1) Atrial fibrillation with rapid ventricular response Is this a current diagnosis for this admission?: YesPlan: Do appreciate cardiology's input with this. Will continue current parameters. Most likely this is multifocal including infectious process as well as nebulizers. Have decreased nebs to when necessary. Multaq has been added. 12/08/16 10:56 Diltiazem HCl/D5w [Cardizem RTU Inj 125 mg-D5w 125 ml Premix] 125 ml IV CONTINUOUS 12/08/16 22:00 Dronedarone Hydrochloride [Multaq 400 mg Tablet] 400 mg PO Q12 (2) Pneumonia involving left lung Qualifiers: Pneumonia type: due to unspecified organism Lung location: upper lobe of lung Qualified Code(s): J18.1 - Lobar pneumonia, unspecified organism Is this a current diagnosis for this admission?: YesPlan: Discontinue Zosyn and transition to by mouth medication. Repeat CT imaging for restaging was stable. Patient is producing significant amount of sputum but a culture has not been collected. Previous cultures have revealed no growth. Will continue flutter valve and incentive spirometry. 12/06/16 03:38 SPUTUM CULTURE + GRAM STAIN [MC] Routine 12/06/16 10:00 Guaifenesin [Mucinex Sr 600 mg Tablet.sa] 1,200 mg PO Q12 12/06/16 10:01 Flutter [PEP Device(PositiveExpiratory)] [RESPCARE] [id number] 12/08/16 10:33 Nebulizer Therapy Routine [RESPCARE] [id number] 12/09/16 10:08 Incentive Spirometer [INSPO] [RESPCARE] 12/09/16 10:00 Cefpodoxime Proxetil [Vantin 200 mg Tablet] 200 mg PO Q12 (3) COPD exacerbation Is this a current diagnosis for this admission?: YesPlan: Continue o2. I have added Advair. Transition to oral steroids. 12/07/16 22:00 Fluticasone/Salmeterol [Advair 250-50 Diskus 14 Dose/Diskus] 1 inh IH Q12 Montelukast Sodium [Singulair 10 mg Tablet] 10 mg PO QHS 12/08/16 10:33 Levalbuterol HCl [Xopenex Neb 0.63 mg/3 ml Ampul] 0.63 mg NEB RTQ4HP PRN 12/08/16 14:00 Hydrocortisone Sod Succinate [Solu-Cortef Inj/Pf 100 mg/ 2 ml Sdv] 50 mg IV Q8 12/09/16 18:00 Prednisone [Deltasone 20 mg Tablet] 30 mg PO BID 12/09/16 10:07 Oxygen Nasal Cannula 2 lpm (4) Acute and chronic respiratory failure with hypoxia Is this a current diagnosis for this admission?: YesPlan: Overall much improved the patient feels almost back to baseline. She is able to fully complete sentences at this time. Selected Entries 12/05/16 12/05/16 21:59 23:00 Respiratory 25 H Rate Blood Pressure 88/42 L (5) UTI (urinary tract infection) Qualifiers: Urinary tract infection type: site unspecified Hematuria presence: with hematuria Qualified Code(s): N39.0 - Urinary tract infection, site not specified Is this a current diagnosis for this admission?: YesPlan: Ampicillin and amanda quinolone resistant Escherichia coli. Will transition to by mouth medication. 12/05/16 22:48 Urine Culture - Final Clean Catch Midstream Escherichia Coli 12/09/16 10:00 Cefpodoxime Proxetil [Vantin 200 mg Tablet] 200 mg PO Q12 (6) Diabetes mellitus type II, controlled, with no complications Qualifiers: Diabetes mellitus chcf insulin use: with chcf use Qualified Code(s): E11.9 - Type 2 diabetes mellitus without complications Is this a current diagnosis for this admission?: YesPlan: Glucoses have been high given steroids are improving. NT new basal insulin as well as sliding scale coverage. 12/28/15 12/09/16 09:00 04:38 POC Glucose 189 H Hemoglobin A1c % 7.1 H 12/06/16 09:50 AccuCheck [RC] ACHS 12/07/16 10:00 Hum Insulin NPH/Reg Insulin Hm [Insulin Inj 70-30 (100 Unit/1 ml) 3 ml Vial] 40 unit SUBCUT BIDACBS (7) Coronary artery disease Qualifiers: Coronary Disease-Associated Artery/Lesion type: [place] artery [place] vs. transplanted heart: [place] heart Associated angina: without angina Qualified Code(s): I25.10 - Atherosclerotic heart disease of [place] coronary artery without angina pectoris Is this a current diagnosis for this admission?: YesPlan: Continue home meds. 12/06/16 22:00 Atorvastatin Calcium [Lipitor 10 mg Tablet] 10 mg PO QHS 12/07/16 10:00 Aspirin [Aspirin 81 mg Chewable Tablet] 81 mg PO DAILY (8) Hypothyroidism Qualifiers: Hypothyroidism type: unspecified Qualified Code(s): E03.9 - Hypothyroidism, unspecified Is this a current diagnosis for this admission?: YesPlan: Will continue home medications. 12/08/16 06:00 Levothyroxine Sodium [Synthroid 0.05 mg Tablet] 0.05 mg PO Q6AM (9) History of lung cancer Is this a current diagnosis for this admission?: YesPlan: Management as per Dr. De La Cruz in [facility]. 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 Time Spent with patient: 25-34 minutes Medications reviewed and adjusted accordingly: Yes Anticipated discharge: Home Within: within 24 hours Disposition: The patient is a DO NOT RESUSCITATE DO NOT INTUBATE. Pending patient's symptomatology and diagnostic findings will reevaluate as needed.
[2016-12-09] MEDS: HUM INSULIN NPH/REG INSULIN HM 100 UNIT/1 ML 3 ML SUBCUT SCH ×2 (10:24→17:34)
[2016-12-09] MEDS: FUROSEMIDE 20 MG TABLET PO SCH (10:25)
[2016-12-09] MEDS: APIXABAN 2.5 MG TABLET PO SCH ×2 (10:26→17:39)
[2016-12-09] MEDS: GUAIFENESIN 600 MG TABLET.SA PO SCH ×2 (10:27→21:37)
[2016-12-09] MEDS: ASPIRIN 81 MG TABLET, CHEWABLE PO SCH (10:27)
[2016-12-09] MEDS: DOCUSATE SODIUM 100 MG CAPSULE PO SCH ×2 (10:27→17:38)
[2016-12-09] MEDS: DRONEDARONE HYDROCHLORIDE 400 MG TABLET PO SCH ×2 (10:28→21:37)
[2016-12-09] MEDS: CEFPODOXIME 200 MG TABLET PO SCH ×2 (10:29→21:38)
[2016-12-09] MEDS: FLUTICASONE/SALMETEROL DISKUS 250-50 MCG/DOSE IH SCH ×2 (10:29→21:36)
--- NOTE | 2016-12-09 11:47 | PDOC PROGRESS REPORT ---
Subjective Progress Note for:: 12/09/16 Subjective:: Patient seems to be doing better with gradual improvement. Pt is denying any chest arm or neck discomfort. Patient denying any PND, orthopnea. Patient denied any sustained palpitations, dizziness, syncope, near syncope. Patient denying any fever chills. Patient denying any other significant discomfort. Patient is maintaining sinus rhythm. Patient converted to sinus rhythm overnight. Patient claims to be feeling better. Review of systems: Rest review of systems negative. Medications: Medications have been reviewed. Physical Exam Vital Signs: Temp Pulse Resp BP Pulse Ox 97.6 F 95 18 92/56 L 96 12/09/16 07:18 12/09/16 08:00 12/09/16 08:00 12/09/16 06:01 12/09/16 08:00 Intake & Output 12/08/16 12/09/16 12/10/16 06:59 06:59 06:59 Intake Total 2017 1841 Output Total 1000 1425 Balance 1018 416 Weight 69 kg 69 kg Exam: GENERAL: well-nourished and in no acute distress. Alert and oriented x3 HEAD: Atraumatic, normocephalic. EYES: Pupils equal round and reactive to light, extraocular movements intact, sclera anicteric, conjunctiva are normal. ENT: TMs normal, nares patent, oropharynx clear without exudates. Moist mucous membranes. No oral ulcerations or bleeding gums noted NECK: supple without lymphadenopathy. Trachea is central. No cervical or axillary lymphadenopathy noted. Carotids are 2+, JVD WNL LUNGS: Respiration seems nonlabored, no significant accessory muscle action noted. Bilateral fine crackles are noted No significant dullness noted on percussion. CHEST: Palpation of the chest wall shows no significant chest wall tenderness. No other significant abnormalities noted. 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 ABDOMEN: Soft, no significant tenderness appreciated, normoactive bowel sounds. No guarding, no rebound. No rigidity noted . No masses appreciated. EXTREMITIES: Pedal pulses are 1-2+, no calf tenderness noted. No clubbing or cyanosis.trace pedal edema noted NEUROLOGICAL: Focused neurological exam showed no significant neurologic deficit. Normal speech, no focal weakness appreciated. PSYCH: Normal mood, normal affect. Judgment and insight within normal limits. SKIN: No significant ecchymosis, rash, ulcerations or signs of pruritus noted. MUSCULOSKELETAL EXAM: No significant joint swelling noted. Results Laboratory Results: 12/07/16 22:35 12/09/16 04:39 12/09/16 04:39 Sodium 147.1 H Potassium 3.7 Chloride 108 H Carbon Dioxide 30 Anion Gap 9 BUN 27 H Creatinine 1.15 Est GFR ( Amer) 55 L Est GFR (Non-Af Amer) 45 L Glucose 182 H Calcium 9.4 Magnesium 2.2 12/07/16 12/07/16 22:35 22:35 Creatine Kinase 23 L CK-MB (CK-2) 1.52 Troponin I < 0.012 EKG Comments: Sinus rhythm with occasional APCs Impressions: Chest CT 12/06/16 00:00 IMPRESSION: Postradiation changes left lung. Decreased left pleural effusion. Stable right pulmonary nodules Chest X-Ray 12/08/16 10:27 IMPRESSION: VOLUME LOSS ON THE LEFT SIDE. CHRONIC SCARRING. NO SIGNIFICANT CHANGE. Assessment & Plan - Diagnosis (1) Atrial fibrillation with rapid ventricular response Is this a current diagnosis for this admission?: Yes (2) COPD exacerbation Is this a current diagnosis for this admission?: Yes (3) Pneumonia involving left lung Qualifiers: Pneumonia type: due to unspecified organism Lung location: upper lobe of lung Qualified Code(s): J18.1 - Lobar pneumonia, unspecified organism Is this a current diagnosis for this admission?: Yes (4) UTI (urinary tract infection) Qualifiers: Urinary tract infection type: site unspecified Hematuria presence: with hematuria Qualified Code(s): N39.0 - Urinary tract infection, site not specified Is this a current diagnosis for this admission?: Yes (5) Coronary artery disease Qualifiers: Coronary Disease-Associated Artery/Lesion type: [place] artery [place] vs. transplanted heart: [place] heart Associated angina: without angina Qualified Code(s): I25.10 - Atherosclerotic heart disease of [place] coronary artery without angina pectoris Is this a current diagnosis for this admission?: Yes (6) Chronic kidney disease Qualifiers: Chronic kidney disease stage: stage 2 (mild) Qualified Code(s): N18.2 - Chronic kidney disease, stage 2 (mild) Is this a current diagnosis for this admission?: Yes - Notes Notes: Atrial fibrillation: Consider paroxysmal. Converted to sinus rhythm. Continue Multaq for at least one month. Continue chronic anticoagulation. Will start on a small dose of Cardizem for rate control should patient go back to atrial fibrillation. COPD exacerbation: Currently improved. Pneumonia: Continue antibiotic therapy. UTI: Continue antibiotic therapy. CAD: Symptomatically stable. Chronic kidney disease: Currently stable. Follow electrolytes and renal functions and maintain them in normal range. - Time Time with patient: Greater than 35 minutes - CODE STATUS : was discussed, patient remains DO NOT RESUSCITATE. Surrogate decision-maker unchanged. Multiple medical problems were addressed.More than 50% of the time spent coordinating care, discussing management plans with involved caregivers. Management plans discussed with involved personnels. Medical decision making was of moderate complexity. Medications reviewed and adjusted accordingly: Yes
[2016-12-09] MEDS: DILTIAZEM HCL 30 MG TABLET PO SCH ×2 (14:57→21:37)
[2016-12-09] MEDS: INSULIN LISPRO 100 UNIT/ML 3 ML VIAL SUBCUT PRN ×2 (17:38→22:45)
[2016-12-09] MEDS: PREDNISONE 20 MG TABLET PO SCH (17:39)
[2016-12-09] MEDS: ACETAMINOPHEN 325 MG TABLET PO PRN (20:24)
[2016-12-09] MEDS: ATORVASTATIN CALCIUM 10 MG TABLET PO SCH (21:38)
[2016-12-09] MEDS: MONTELUKAST SODIUM 10 MG TABLET PO SCH (21:39)
[2016-12-10] MEDS: LEVOTHYROXINE SODIUM 0.05 MG TABLET PO SCH (05:07)
[2016-12-10] MEDS: LANSOPRAZOLE 30 MG TAB.RAP.DR PO SCH ×2 (05:07→17:31)
[2016-12-10] MEDS: DILTIAZEM HCL 30 MG TABLET PO SCH ×3 (05:10→21:37)
[2016-12-10 05:26] LABS: ANION GAP 8 (5-19); BLOOD UREA NITROGEN 20 mg/dL (7-20); CARBON DIOXIDE 32 mmol/L (22-30); CHLORIDE 108 mmol/L (98-107); CREATININE RESULT 0.91 mg/dL (0.52-1.25); GLUCOSE 75 mg/dL (75-110); MAGNESIUM 2.2 mg/dL (1.6-2.3); POTASSIUM 3.1 mmol/L (3.6-5.0); SODIUM 148.2 mmol/L (137-145)
[2016-12-10] MEDS: LEVALBUTEROL HCL NEB 0.63 MG/3 ML AMPUL NEB PRN ×2 (07:57→15:17)
[2016-12-10] MEDS: HUM INSULIN NPH/REG INSULIN HM 100 UNIT/1 ML 3 ML SUBCUT SCH ×2 (08:50→17:28)
[2016-12-10] MEDS: APIXABAN 2.5 MG TABLET PO SCH ×2 (10:18→17:31)
[2016-12-10] MEDS: FUROSEMIDE 20 MG TABLET PO SCH (10:19)
[2016-12-10] MEDS: DOCUSATE SODIUM 100 MG CAPSULE PO SCH ×2 (10:19→17:30)
[2016-12-10] MEDS: ASPIRIN 81 MG TABLET, CHEWABLE PO SCH (10:19)
[2016-12-10] MEDS: GUAIFENESIN 600 MG TABLET.SA PO SCH ×2 (10:19→21:39)
[2016-12-10] MEDS: PREDNISONE 20 MG TABLET PO SCH ×2 (10:19→17:30)
[2016-12-10] MEDS: DRONEDARONE HYDROCHLORIDE 400 MG TABLET PO SCH ×2 (10:20→21:38)
[2016-12-10] MEDS: CEFPODOXIME 200 MG TABLET PO SCH ×2 (10:20→21:37)
[2016-12-10] MEDS: FLUTICASONE/SALMETEROL DISKUS 250-50 MCG/DOSE IH SCH ×2 (10:21→21:39)
[2016-12-10] MEDS: INSULIN LISPRO 100 UNIT/ML 3 ML VIAL SUBCUT PRN ×3 (13:27→22:13)
[2016-12-10] MEDS ORDERED: POTASSIUM CHLORIDE 10 MEQ TABLET.SA PO ONE (14:15)
[2016-12-10] MEDS ORDERED: ALPRAZOLAM 0.25 MG TABLET PO PRN (14:22)
--- NOTE | 2016-12-10 14:55 | PDOC PROGRESS REPORT ---
Subjective Progress Note for:: 12/10/16 Subjective:: Patient seems to be doing better with gradual improvement. Pt is denying any chest arm or neck discomfort. Patient denying any PND, orthopnea. Patient denied any sustained palpitations, dizziness, syncope, near syncope. Patient denying any fever chills. Patient denying any other significant discomfort. Patient is maintaining sinus rhythm. Patient converted to sinus rhythm previously. Patient claims to be feeling better. Patient wanting to be discharged. Review of systems: Rest review of systems negative. Medications: Medications have been reviewed. Physical Exam Vital Signs: Temp Pulse Resp BP Pulse Ox 97.5 F 71 18 124/47 L 99 12/10/16 11:09 12/10/16 11:09 12/10/16 11:09 12/10/16 11:09 12/10/16 11:09 Intake & Output 12/09/16 12/10/16 12/11/16 06:59 06:59 06:59 Intake Total 1841 2281 Output Total 0 Balance 1841 2281 Weight 69 kg Exam: GENERAL: well-nourished and in no acute distress. Alert and oriented x3 HEAD: Atraumatic, normocephalic. EYES: Pupils equal round and reactive to light, extraocular movements intact, sclera anicteric, conjunctiva are normal. ENT: TMs normal, nares patent, oropharynx clear without exudates. Moist mucous membranes. No oral ulcerations or bleeding gums noted NECK: supple without lymphadenopathy. Trachea is central. No cervical or axillary lymphadenopathy noted. Carotids are 2+, JVD WNL LUNGS: Respiration seems nonlabored, no significant accessory muscle action noted. Breath sounds clear to auscultation bilaterally and equal noted. No wheezes rales or rhonchi noted. No significant dullness noted on percussion. CHEST: Palpation of the chest wall shows no significant chest wall tenderness. No other significant abnormalities noted. 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 ABDOMEN: Soft, no significant tenderness appreciated, normoactive bowel sounds. No guarding, no rebound. No rigidity noted . No masses appreciated. EXTREMITIES: Pedal pulses are 1-2+, no calf tenderness noted. No clubbing or cyanosis.trace to 1+ pedal edema noted NEUROLOGICAL: Focused neurological exam showed no significant neurologic deficit. Normal speech, no focal weakness appreciated. PSYCH: Normal mood, normal affect. Judgment and insight within normal limits. SKIN: No significant ecchymosis, rash, ulcerations or signs of pruritus noted. MUSCULOSKELETAL EXAM: No significant joint swelling noted. Results Laboratory Results: 12/07/16 22:35 12/10/16 03:59 12/10/16 03:59 Sodium 148.2 H Potassium 3.1 L Chloride 108 H Carbon Dioxide 32 H Anion Gap 8 BUN 20 Creatinine 0.91 Est GFR ( Amer) > 60 Est GFR (Non-Af Amer) 59 L Glucose 75 Calcium 9.0 Magnesium 2.2 12/07/16 12/07/16 22:35 22:35 Creatine Kinase 23 L CK-MB (CK-2) 1.52 Troponin I < 0.012 Impressions: Chest CT 12/06/16 00:00 IMPRESSION: Postradiation changes left lung. Decreased left pleural effusion. Stable right pulmonary nodules Chest X-Ray 12/08/16 10:27 IMPRESSION: VOLUME LOSS ON THE LEFT SIDE. CHRONIC SCARRING. NO SIGNIFICANT CHANGE. Assessment & Plan - Diagnosis (1) Atrial fibrillation with rapid ventricular response Is this a current diagnosis for this admission?: Yes (2) COPD exacerbation Is this a current diagnosis for this admission?: Yes (3) Pneumonia involving left lung Qualifiers: Pneumonia type: due to unspecified organism Lung location: upper lobe of lung Qualified Code(s): J18.1 - Lobar pneumonia, unspecified organism Is this a current diagnosis for this admission?: Yes (4) UTI (urinary tract infection) Qualifiers: Urinary tract infection type: site unspecified Hematuria presence: with hematuria Qualified Code(s): N39.0 - Urinary tract infection, site not specified Is this a current diagnosis for this admission?: Yes (5) Coronary artery disease Qualifiers: Coronary Disease-Associated Artery/Lesion type: [place] artery [place] vs. transplanted heart: [place] heart Associated angina: without angina Qualified Code(s): I25.10 - Atherosclerotic heart disease of [place] coronary artery without angina pectoris Is this a current diagnosis for this admission?: Yes (6) Chronic kidney disease Qualifiers: Chronic kidney disease stage: stage 2 (mild) Qualified Code(s): N18.2 - Chronic kidney disease, stage 2 (mild) Is this a current diagnosis for this admission?: Yes - Notes Notes: Atrial fibrillation: Consider paroxysmal. Converted to sinus rhythm. Continue Multaq for at least one month. Continue chronic anticoagulation. Will start on a small dose of Cardizem for rate control should patient go back to atrial fibrillation. Could stop carvedilol since LVEF is WNL. COPD exacerbation: Currently improved. Have recommended to stop carvedilol since LVEF is within normal limit. Pneumonia: Continue current management plans. UTI: Continue current management plans. CAD: Symptomatically stable. Chronic kidney disease: Currently stable. Follow electrolytes and renal functions and maintain them in normal range. We will be happy to follow patient as regards atrial fibrillation and other chronic cardiac problems. Discussed with Dr. Sarkar. Patient medications were reviewed. - Time Time with patient: Greater than 35 minutes - CODE STATUS was discussed, patient remains full code. Surrogate decision-maker unchanged. Multiple medical problems were addressed.More than 50% of the time spent coordinating care, discussing management plans with involved caregivers. Management plans discussed with involved personnels. Medical decision making was of moderate complexity. Medications reviewed and adjusted accordingly: Yes
[2016-12-10] MEDS ORDERED: ALPRAZOLAM 0.25 MG TABLET PO ONE (15:00)
--- NOTE | 2016-12-10 17:25 | PDOC PROGRESS REPORT ---
Subjective Progress Note for:: 12/10/16 Subjective:: Patient seen earlier today on morning rounds. Patient reports that she is anxious/depressed and very nervous about her upcoming oncology appointment. Patient denies chest pain, shortness of breath, abdominal pain, nausea, vomiting , fevers, chills, diarrhea, constipation, headache, new onset weakness. Physical Exam Vital Signs: Temp Pulse Resp BP Pulse Ox 97.7 F 91 18 100/52 L 97 12/10/16 15:01 12/10/16 15:17 12/10/16 15:17 12/10/16 15:01 12/10/16 15:17 Intake & Output 12/09/16 12/10/16 12/11/16 06:59 06:59 06:59 Intake Total 1841 2281 Output Total 0 Balance 1841 2281 Weight 69 kg Exam: General: Awake alert and oriented x2, no acute respiratory distress HEENT: AT/NC, PERRL, EOMI, oropharynx is moist, pink, no scleral icterus, no conjunctival injection Neck: No JVD, trachea midline Chest: Left-sided wheezing, right side clear CV: IRR, normal S1 and S2, no rub or gallop; 2/6 sm lusb Abdomen: Soft, nontender to palpation, nondistended, active bowel sounds; no rebound, rigidity, or guarding Extremities: No cyanosis, clubbing or edema Neuro: Cranial nerves II through XII are grossly intact without focal deficits; awake alert and oriented x2 Psych: Tearful, anxious Results Laboratory Results: 12/07/16 22:35 12/10/16 03:59 12/10/16 03:59 Sodium 148.2 H Potassium 3.1 L Chloride 108 H Carbon Dioxide 32 H Anion Gap 8 BUN 20 Creatinine 0.91 Est GFR ( Amer) > 60 Est GFR (Non-Af Amer) 59 L Glucose 75 Calcium 9.0 Magnesium 2.2 12/07/16 12/07/16 22:35 22:35 Creatine Kinase 23 L CK-MB (CK-2) 1.52 Troponin I < 0.012 Impressions: Chest CT 12/06/16 00:00 IMPRESSION: Postradiation changes left lung. Decreased left pleural effusion. Stable right pulmonary nodules Chest X-Ray 12/08/16 10:27 IMPRESSION: VOLUME LOSS ON THE LEFT SIDE. CHRONIC SCARRING. NO SIGNIFICANT CHANGE. Assessment & Plan - Diagnosis (1) Atrial fibrillation with rapid ventricular response Is this a current diagnosis for this admission?: YesPlan: Patient currently rate controlled on Multaq and Cardizem. Patient on Eliquis. According to cardiology, patient will need at least one month of multaq (2) COPD exacerbation Is this a current diagnosis for this admission?: YesPlan: Appears to be improving. Decrease prednisone as tolerated due to underlying anxiety. Continue scheduled nebulized treatments (3) Pneumonia involving left lung Qualifiers: Pneumonia type: due to unspecified organism Lung location: upper lobe of lung Qualified Code(s): J18.1 - Lobar pneumonia, unspecified organism Is this a current diagnosis for this admission?: YesPlan: Patient less left lung pneumonia. Still having significant wheezing after transitioning to oral steroids. Concern at this time for decompensation necessitating further stay in hospital. (4) UTI (urinary tract infection) Qualifiers: Urinary tract infection type: site unspecified Hematuria presence: with hematuria Qualified Code(s): N39.0 - Urinary tract infection, site not specified Is this a current diagnosis for this admission?: YesPlan: Continue patient on Vantin day #5 of antibiotic. Will obtain repeat culture. (5) Acute and chronic respiratory failure with hypoxia Is this a current diagnosis for this admission?: YesPlan: Patient is currently back to her home 2 L of oxygen. (6) Coronary artery disease Qualifiers: Coronary Disease-Associated Artery/Lesion type: [place] artery [place] vs. transplanted heart: blackfeet heart Associated angina: without angina Qualified Code(s): I25.10 - Atherosclerotic heart disease of blackfeet coronary artery without angina pectoris Is this a current diagnosis for this admission?: Yes (7) Diabetes mellitus type II, controlled, with no complications Qualifiers: Diabetes mellitus shelter insulin use: with termite treater use Qualified Code(s): E11.9 - Type 2 diabetes mellitus without complications Is this a current diagnosis for this admission?: YesPlan: Patient currently having high blood glucose in the afternoon. She apparently drank to Rosana Alles before this. Will alter her insulin as her steroid usage changes. (8) Hypothyroidism Qualifiers: Hypothyroidism type: unspecified Qualified Code(s): E03.9 - Hypothyroidism, unspecified Is this a current diagnosis for this admission?: YesPlan: TSH is 1.08. Continue Synthroid (9) Steroid dependent Is this a current diagnosis for this admission?: YesPlan: Patient appears to take 20 mg prednisone daily. (10) Chronic kidney disease Qualifiers: Chronic kidney disease stage: stage 2 (mild) Qualified Code(s): N18.2 - Chronic kidney disease, stage 2 (mild) Is this a current diagnosis for this admission?: YesPlan: Renal modification as needed (11) Do not resuscitate Is this a current diagnosis for this admission?: YesPlan: Shala Tobar surrogate decision maker (12) DVT prophylaxis Is this a current diagnosis for this admission?: Yes (13) History of lung cancer Is this a current diagnosis for this admission?: Yes (14) Hypokalemia Is this a current diagnosis for this admission?: YesPlan: Replete and check magnesium. Concern for arrhythmia. (15) Situational depression Is this a current diagnosis for this admission?: YesPlan: Will initiate patient on Prozac and when necessary Xanax. - Time Time Spent with patient: 35 or more minutes Medications reviewed and adjusted accordingly: Yes Anticipated discharge: Other - Assisted living Within: within 24 hours, within 36 hours
[2016-12-10] MEDS ORDERED: FLUOXETINE HCL 20 MG CAPSULE PO SCH (18:00)
[2016-12-10] MEDS: MONTELUKAST SODIUM 10 MG TABLET PO SCH (21:38)
[2016-12-10] MEDS: ATORVASTATIN CALCIUM 10 MG TABLET PO SCH (21:39)
[2016-12-10] MEDS ORDERED: TRAZODONE HCL 50 MG TABLET PO SCH (22:00)
[2016-12-11] MEDS: LANSOPRAZOLE 30 MG TAB.RAP.DR PO SCH (05:21)
[2016-12-11] MEDS: LEVOTHYROXINE SODIUM 0.05 MG TABLET PO SCH (05:21)
[2016-12-11] MEDS: DILTIAZEM HCL 30 MG TABLET PO SCH ×2 (05:21→13:07)
[2016-12-11 05:32] LABS: ANION GAP 9 (5-19); BLOOD UREA NITROGEN 18 mg/dL (7-20); CALCIUM 9.3 mg/dL (8.4-10.2); CARBON DIOXIDE 34 mmol/L (22-30); CHLORIDE 103 mmol/L (98-107); CREATININE RESULT 0.92 mg/dL (0.52-1.25); GLUCOSE 162 mg/dL (75-110); MAGNESIUM 2.4 mg/dL (1.6-2.3); POTASSIUM 3.9 mmol/L (3.6-5.0); SODIUM 145.5 mmol/L (137-145)
[2016-12-11] MEDS: LEVALBUTEROL HCL NEB 0.63 MG/3 ML AMPUL NEB PRN (07:56)
[2016-12-11] MEDS: HUM INSULIN NPH/REG INSULIN HM 100 UNIT/1 ML 3 ML SUBCUT SCH (08:31)
[2016-12-11] MEDS: INSULIN LISPRO 100 UNIT/ML 3 ML VIAL SUBCUT PRN ×2 (08:32→13:06)
[2016-12-11] MEDS: PREDNISONE 20 MG TABLET PO SCH (09:43)
[2016-12-11] MEDS: GUAIFENESIN 600 MG TABLET.SA PO SCH (09:44)
[2016-12-11] MEDS: FUROSEMIDE 20 MG TABLET PO SCH (09:44)
[2016-12-11] MEDS: DOCUSATE SODIUM 100 MG CAPSULE PO SCH (09:44)
--- NOTE | 2016-12-11 09:44 | Progress Note ---
Provider Note Provider Note: 12/07/2016: Patient had developed new onset atrial fibrillation with rapid ventricular response. At 10:07 PM, I discussed patient's 12/06/[address] results with on-call radiologist, Dr. Dalton. He reviewed the films himself and felt that contrast imaging was quite good in showing not only lack of central pulmonary emboli, but also lack of emboli in the pulmonary artery branches.
[2016-12-11] MEDS: ASPIRIN 81 MG TABLET, CHEWABLE PO SCH (09:45)
[2016-12-11] MEDS: APIXABAN 2.5 MG TABLET PO SCH (09:47)
[2016-12-11] MEDS: FLUTICASONE/SALMETEROL DISKUS 250-50 MCG/DOSE IH SCH (09:51)
[2016-12-11] MEDS: DRONEDARONE HYDROCHLORIDE 400 MG TABLET PO SCH (09:51)
[2016-12-11] MEDS: CEFPODOXIME 200 MG TABLET PO SCH (09:51)
[2016-12-11] MEDS ORDERED: ERGOCALCIFEROL (VITAMIN D2) 50000 UNIT (1.25 MG) CAPSULE PO SCH ×2 (10:00→17:33)
--- NOTE | 2016-12-11 12:32 | PDOC TRANSFER SUMMARY ---
General - Admit/Disc Date/PCP Admission Date/Primary Care Provider: 12/06/16 03:35 Discharge Date: 12/11/16 - Discharge Diagnosis (1) Atrial fibrillation with rapid ventricular response Is this a current diagnosis for this admission?: Yes (2) COPD exacerbation Is this a current diagnosis for this admission?: Yes (3) Pneumonia involving left lung Is this a current diagnosis for this admission?: Yes (4) UTI (urinary tract infection) Is this a current diagnosis for this admission?: Yes (5) Acute and chronic respiratory failure with hypoxia Is this a current diagnosis for this admission?: Yes (6) Coronary artery disease Is this a current diagnosis for this admission?: Yes (7) Diabetes mellitus type II, controlled, with no complications Is this a current diagnosis for this admission?: Yes (8) Hypothyroidism Is this a current diagnosis for this admission?: Yes (9) Steroid dependent Is this a current diagnosis for this admission?: Yes (10) Chronic kidney disease Is this a current diagnosis for this admission?: Yes (11) History of lung cancer Is this a current diagnosis for this admission?: Yes (12) Hypokalemia Is this a current diagnosis for this admission?: Yes (13) Situational depression Is this a current diagnosis for this admission?: Yes (14) Do not resuscitate Is this a current diagnosis for this admission?: Yes - Additional Information Resuscitation Status: Full Code Discharge Diet: Cardiac Discharge Activity: Activity As Tolerated Home Medications: Aspirin [Aspirin 81 mg Chewable Tablet] 81 mg PO DAILY 12/06/16 Atorvastatin Calcium [Lipitor 10 mg Tablet] 10 mg PO QHS 12/06/16 Ergocalciferol (Vitamin D2) [Drisdol 50,000 unit (1.25MG) Capsule] 1 cap PO MO 12/06/16 Furosemide [Lasix] 20 mg PO DAILY 12/06/16 Insulin Aspart Protam & Aspart [Novolog Mix 70-30 Vial] 40 unit SQ BIDACBS 12/06 Levalbuterol HCl [Xopenex Neb 1.25 mg/3 ml Ampul] 1.25 mg NEB [id number] PRN Levothyroxine Sodium [Synthroid 0.05 mg Tablet] 50 mcg PO DAILY 12/06/16 Melatonin 1 mg PO QHS 12/06/16 Pantoprazole Sodium [Protonix] 40 mg PO QHS 12/06/16 Apixaban [Eliquis 2.5 mg Tablet] 2.5 mg PO BID #60 tablet 12/10/16 Cefpodoxime Proxetil [Vantin 200 mg Tablet] 1 tab PO Q12 #14 tab 12/10/16 Diltiazem HCl [Cardizem 30 mg Tablet] 30 mg PO Q8 #90 tablet 12/10/16 Docusate Sodium [Colace 100 mg Capsule] 100 mg PO BID #60 capsule 12/10/16 Dronedarone Hydrochloride [Multaq 400 mg Tablet] 400 mg PO Q12 #60 tablet Insulin Lispro [Humalog Insulin (Lispro) 100 unit/mL] 0 - 12 unit SUBCUT ACHSP PRN unit 12/10/16 Montelukast Sodium [Singulair 10 mg Tablet] 10 mg PO QHS #30 tablet 12/10/16 Prednisone [Deltasone 20 mg Tablet] 20 mg PO BID #14 tablet 12/10/16 Alprazolam [Xanax 0.25 mg Tablet] 0.25 mg PO BIDP PRN #10 tablet 12/11/16 Fluoxetine HCl [Prozac 20 mg Capsule] 20 mg PO QPM #30 capsule 12/11/16 History of Present Illness Admission Date/PCP: 12/06/16 03:35 History of Present Illness: JATINDER RODRIGUEZ is a 81 year old female, resident of [facility] assisted living facility in [facility], with underlying 2 L oxygen per nasal cannula 24/7 home O2 dependent COPD, 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 [facility], but uncertain as to which specific antibiotic. Also, review of her [facility] medication list fails to reveal antibiotic. Of note, patient is not the best historian. She's had no other complaint in terms of nausea vomiting, fever or chills, chest or or abdominal pain. No diarrhea. No dysuria. Intermittently mildly hypotensive in the emergency room, but this has responded nicely to IV fluid boluses. Currently resting quietly, stating she does feel better. This history was reviewed, supplemented and confirmed. Patient main symptoms are marked fatigue and tiredness. She is denying any chest pain. Hospital Course Hospital Course: Ms. Girard is an extremely pleasant 81-year-old female that is well known to the hospitalist service with home oxygen and steroid dependency. Patient was admitted with pneumonia that was thought to be postobstructive given a previous lung malignancy. Patient is followed by Dr. Dagoberto De La Cruz in [place], oncologist. This week the patient was admitted with left lower lobe pneumonia this admission and was scheduled to have a restaging chest CT done outpatient. Patient is also noted to have a UTI. Given the patient's admission this was completed and nodules appear stable in comparison to previous study. The patient has an appointment with her oncologist on Sunday. During the patient's stay she did develop rapid ventricular response and was started on a Cardizem drip. The patient's diet technician registered is Dr. Joyce and he was consult to see the patient. During the course of her stay, patient developed A. fib with RVR and required Cardizem drip. Patient was seen by cardiology in consultation and was started on Multaq condition to Coreg. Patient had a subsequent episode of A. fib with RVR and required being placed on additional short acting oral Cardizem. After that time, patient developed relative bradycardia and Coreg was stopped. Patient is currently doing well rate controlled on multaq and Cardizem. Patient was initially continued on Zosyn and eventually transitioned to Vantin. Unfortunately, no sputum was able to be obtained for culture. Patient did have a urinary tract infection with Escherichia coli which was resistant to ampicillin, ampicillin/Sulbactam, Cipro, and Levaquin. Patient completed 5 days of Vantin. Patient's blood cultures were negative after 5 days. Patient also developed a significant anxiety and expressed some feelings of depression in regard to her history of cancer and trepidation about her new appointment. Patient does admit to some depression and anxiety and was started on Prozac and a small amount of Xanax. Patient was given a one-time dose of trazodone for sleep. She did well with these medications and will be discharged to follow-up with her primary care provider for maintenance and further evaluation of these medications. Patient is currently stable for discharge and doing well. Physical Exam Vital Signs: Temp Pulse Resp BP Pulse Ox 97.6 F 63 18 143/53 H 99 12/11/16 03:12 12/11/16 03:12 12/11/16 03:12 12/11/16 03:12 12/11/16 03:12 Intake & Output 12/10/16 12/11/16 12/12/16 06:59 06:59 06:59 Intake Total 2281 1398 Output Total 1550 Balance 2281 -152 Weight 70.8 kg Exam: General: Awake alert and oriented x2, no acute respiratory distress HEENT: AT/NC, PERRL, EOMI, oropharynx is moist, pink, no scleral icterus, no conjunctival injection Neck: No JVD, trachea midline Chest: CTAB CV: IRR, normal S1 and S2, no rub or gallop; 2/6 sm lusb Abdomen: Soft, nontender to palpation, nondistended, active bowel sounds; no rebound, rigidity, or guarding Extremities: No cyanosis, clubbing or edema Neuro: Cranial nerves II through XII are grossly intact without focal deficits; awake alert and oriented x2 Psych: normal mood and affect Results Laboratory Results: 12/07/16 22:35 12/11/16 04:05 12/11/16 04:05 Sodium 145.5 H Potassium 3.9 Chloride 103 Carbon Dioxide 34 H Anion Gap 9 BUN 18 Creatinine 0.92 Est GFR ( Amer) > 60 Est GFR (Non-Af Amer) 59 L Glucose 162 H Calcium 9.3 Magnesium 2.4 H 12/07/16 12/07/16 22:35 22:35 Creatine Kinase 23 L CK-MB (CK-2) 1.52 Troponin I < 0.012 Impressions: Chest CT 12/06/16 00:00 IMPRESSION: Postradiation changes left lung. Decreased left pleural effusion. Stable right pulmonary nodules Chest X-Ray 12/08/16 10:27 IMPRESSION: VOLUME LOSS ON THE LEFT SIDE. CHRONIC SCARRING. NO SIGNIFICANT CHANGE. Transfer Plan - Time Spent with Patient Time spent with patient: Less than 30 Minutes Qualifiers PATEINT BEING DISCHARGED WITH ANY OF THE FOLLOWING DIAGNOSIS?: No Plan Time Spent: Less than 30 Minutes
[2016-12-11 12:49] VITALS: BP 96/43
--- NOTE | 2016-12-11 15:57 | EKG REPORT ---
SEVERITY:- ABNORMAL ECG - SINUS RHYTHM BORDERLINE INFERIOR Q WAVES BORDERLINE T ABNORMALITIES, ANT-LAT LEADS BORDERLINE PROLONGED QT INTERVAL : Confirmed by: Micheal Joyce 11-Dec-2016 15:56:32
== END 2016-12-11 16:23 | disposition home health service (06) | DRG 190 ==
LOC: ER 21:45 → UNDOADMIN 12-06 02:38 → EH 12-06 02:38 → 3N 12-06 06:31
PROVIDERS: ADMIT Family Medicine; ATTEND Family Medicine
DX: J44.0 Chronic obstructive pulmonary disease with (acute) lower respiratory infection (principal); J18.1 Lobar pneumonia, unspecified organism; J96.21 Acute and chronic respiratory failure with hypoxia; N39.0 Urinary tract infection, site not specified; I50.32 Chronic diastolic (congestive) heart failure; Z66 Do not resuscitate; I95.9 Hypotension, unspecified; J44.1 Chronic obstructive pulmonary disease with (acute) exacerbation; N18.3 Chronic kidney disease, stage 3 (moderate); E11.22 Type 2 diabetes mellitus with diabetic chronic kidney disease; I48.0 Paroxysmal atrial fibrillation; E87.6 Hypokalemia; E03.9 Hypothyroidism, unspecified; I25.10 Atherosclerotic heart disease of native coronary artery without angina pectoris; F43.21 Adjustment disorder with depressed mood; Z79.4 Long term (current) use of insulin; Z99.81 Dependence on supplemental oxygen; Z87.891 Personal history of nicotine dependence; Z79.52 Long term (current) use of systemic steroids; Z85.118 Personal history of other malignant neoplasm of bronchus and lung; Z79.82 Long term (current) use of aspirin; Z79.01 Long term (current) use of anticoagulants; Z79.51 Long term (current) use of inhaled steroids; Z79.899 Other long term (current) drug therapy
CPT/HCPCS: 36415; 71020; 71260; 80048; 80053; 81001; 82550; 82553; 82803; 82962; 83605; 83735; 84443; 84484; 85025; 85610; 87040; 87086; 87088; 87186; 87804; 93005; 93010; 93306; 94640; 94667; 94668; 94799; 96365; 96366; 99285; J1644; J1720; J1815; J1956; J2543; J3370; J3490; J7030; J7060; J7512; J7614; J7620

== ENCOUNTER → 2016-12-20 | Outpatient (CLI) | payer MEDICARE, MEDICAID, OTHER | LOC: RAD 09:39 | PROVIDERS: ATTEND Internal Medicine Medical Oncology | DX: C34.02 Malignant neoplasm of left main bronchus (principal) | CPT/HCPCS: 71260 ==

== ENCOUNTER → 2016-12-29 | Outpatient (CLI) | payer MEDICARE, MEDICAID, OTHER | LOC: RAD 12:34 | PROVIDERS: ATTEND Internal Medicine Medical Oncology | DX: C34.02 Malignant neoplasm of left main bronchus (principal) | CPT/HCPCS: 78815; A9552 ==

== ENCOUNTER 2017-01-03 03:37 | Emergency (ER) | payer MEDICARE, MEDICAID, OTHER ==
--- NOTE | 2017-01-03 03:56 | ER Document Report ---
ED Fall - General Mode of Arrival: Medic Information source: Patient TRAVEL OUTSIDE OF THE [place] IN LAST 30 DAYS: No - HPI Occurred: Just prior to arrival Where: [facility] Context: Tripped Associated symptoms: None Location of injury/pain: Hand - General Chief Complaint: Fall Stated Complaint: FALL/HAND INJURY Notes: Patient is an 82 year old female presenting to the ED for a fall. Patient tripped on her oxygen cord on her way to the bathroom. Patient states she did not hit her head and does not have any other injuries other than her left hand. Patient has a large hematoma to her left hand. Patient is on a bloodthinner, xarelto. Patient has a wedding ring on her left ring finger and states she has not been able to get it off for a few years. Patient also has a history of diabetes mellitus. Patient states her PCP is Dr. lAlison. Patient has no known allergies. (MARLINE SPRINGER) - Related data Allergies/Adverse Reactions: No Known Allergies Allergy (Unverified 10/16/15 06:35) Past Medical History - General Information source: Patient - Social History Smoking Status: Unknown if Ever Smoked Family History: Reviewed & Not Pertinent, Malignancy Patient has suicidal ideation: No Patient has homicidal ideation: No - Past Medical History Cardiac Medical History: Reports: Hx Congestive Heart Failure, Hx Coronary Artery Disease, Hx Hypercholesterolemia, Hx Hypertension Pulmonary Medical History: Reports: Hx COPD Endocrine Medical History: Reports: Hx Diabetes Mellitus Type 2, Hx Hypothyroidism Malignancy Medical History: Reports: Hx Lung Cancer Past Surgical History: Reports: Hx Appendectomy, Hx Hysterectomy - Immunizations Hx Diphtheria, Pertussis, Tetanus Vaccination: Yes Review of Systems - Review of Systems Constitutional: No symptoms reported EENT: No symptoms reported Cardiovascular: No symptoms reported Respiratory: No symptoms reported Gastrointestinal: No symptoms reported Genitourinary: No symptoms reported Female Genitourinary: No symptoms reported Musculoskeletal: No symptoms reported Skin: See HPI Hematologic/Lymphatic: See HPI Neurological/Psychological: No symptoms reported -: Yes All other systems reviewed and negative Physical Exam - Vital signs Interpretation: Normal - General General appearance: Appears well, Alert In distress: Mild - HEENT Head: Normocephalic, Atraumatic Eyes: Normal Pupils: PERRL Mucous membranes: Moist - Respiratory Respiratory status: No respiratory distress Chest status: Nontender Breath sounds: Normal Chest palpation: Normal - Cardiovascular Rhythm: Regular Heart sounds: Normal auscultation Murmur: No - Abdominal Inspection: Normal Distension: No distension Bowel sounds: Normal Tenderness: Nontender Organomegaly: No organomegaly - Back Back: Normal, Nontender - Extremities General lower extremity: Normal inspection, Normal ROM, Normal strength Hand: Other - large, soft, hematoma to the dorsal aspect of the left hand into the 2nd and 3rd MCP joint - Neurological Neuro grossly intact: Yes Cognition: Normal Orientation: AAOx4 Addison Coma Scale Eye Opening: Spontaneous Addison Coma Scale Verbal: Oriented Abdon Coma Scale Motor: Obeys Commands Addison Coma Scale Total: 15 Speech: Normal - Psychological Associated symptoms: Normal affect, Normal mood - Skin Skin Temperature: Warm Skin Moisture: Dry Course - Re-evaluation Re-evalutation: 01/03/17 04:41 Patient presents to the emergency department from assisted living. She said she got up to go to the bathroom tripped over oxygen tubing and struck the dorsal aspect of her left hand. She denies hitting her head loss consciousness. Patient is awake alert GCS of 15 denies any head neck chest back abdominal or extremity tenderness. She has a moderate-sized hematoma over the dorsal aspect of the left hand into the MCP joint. There is no active bleeding or deformity. We removed her wedding ring from her hand in case that area with start to swell. She's got good pulses and perfusion x-ray shows the swelling but no fracture. At this time I told her that she can keep ice on the area she needs to recheck with her family doctor in one to 2 days because this can get larger and hard and require drainage. Right now that is not warranted and discussed with her reasons for ED return sooner (SYLVESTER DIGGS) - Vital Signs Vital signs: Temp Pulse Resp BP Pulse Ox 97.8 F 64 17 132/82 H 98 01/03/17 03:45 01/03/17 03:45 01/03/17 03:45 01/03/17 03:45 01/03/17 03:45 Discharge - Discharge Clinical Impression: acute left hand hematoma blood thinners, fall Condition: Stable Disposition: HOME, SELF-CARE Additional Instructions: Acute left hand hematoma You presented to the emergency department after falling on your way to the bathroom because you are on blood thinners you hit your left hand and you have what's called a hematoma. The tumor is a collection of blood underneath your skin. Right now it is moderate in size and soft. You have no broken bone on your x-ray. I'm going to have the follow-up with your primary care physician in one to 2 days to have this rechecked and reevaluated. Sometimes these can get large and hard and have to be drained. Return to the emergency per month sooner for increasing worsening or new symptoms Referrals: KD CISNEROS PA-C [Primary Care Provider] - Follow up tomorrow (In one to 2 days for recheck reevaluation and follow-up return to months. Sooner for increasing worsening or new symptoms) Scribe Attestation: 01/03/17 04:41 I personally performed the services described in the documentation reviewed the documentation recorded by my scribe in my presence and it accurately and completely records my words and actions (SYLVESTER DIGGS) Scribe Documentation - Scribe Written by Scribe:: Marline Springer 01/03/17 4:50 acting as scribe for :: Lul
[2017-01-03] MEDS ORDERED: HYDROCODONE/ACETAMINOPHEN 5-325 MG TABLET PO ONE (04:49)
[2017-01-03] MEDS ORDERED: HYDROCODONE/ACETAMINOPHEN 5-325 MG 6 TAB/DSPK PO PRN (04:49)
[2017-01-03 07:52] VITALS: BP 114/55
== END 2017-01-03 08:01 | disposition home or self-care (01) ==
LOC: ER 03:37
DX: S69.90XA Unspecified injury of unspecified wrist, hand and finger(s), initial encounter (principal); W01.0XXA Fall on same level from slipping, tripping and stumbling without subsequent striking against object, initial encounter; Z79.01 Long term (current) use of anticoagulants
CPT/HCPCS: 99284; 73130; A9270 ×2

== ENCOUNTER 2017-02-07 04:11 | Emergency (ER) | payer MEDICARE, MEDICAID, OTHER ==
[2017-02-07] MEDS ORDERED: OXYMETAZOLINE HCL 0.05% NASAL SPRAY 15 ML BOTTLE NASL ONE (04:21)
[2017-02-07] MEDS ORDERED: OXYMETAZOLINE HCL 0.05% NASAL SPRAY 15 ML BOTTLE ONE (04:24)
--- NOTE | 2017-02-07 04:51 | ER Document Report ---
ED General - General Chief Complaint: Nose Bleed Stated Complaint: NOSE BLEED Time Seen by Provider: 02/07/17 04:18 Mode of Arrival: Medic Information source: Patient TRAVEL OUTSIDE OF THE [place] IN LAST 30 DAYS: No - HPI Notes: Patient is an 82-year-old female who is on Xarelto who presents with history of nosebleed left-sided that came on yesterday. Patient is on oxygen consistently by nasal cannula and she states that she accidentally scratched an area on the inside of her nose. Patient takes the Xarelto related to a history of long-standing atrial fibrillation. Patient also reports of bruises on both arms. She denies any chest pain or difficulty breathing. Patient is a DNR. - Related Data Allergies/Adverse Reactions: No Known Allergies Allergy (Unverified 10/16/15 06:35) Past Medical History - Social History Smoking Status: Former Smoker Frequency of alcohol use: None Drug Abuse: None Lives with: [facility] Family History: Reviewed & Not Pertinent, Malignancy - Past Medical History Cardiac Medical History: Reports: Hx Congestive Heart Failure, Hx Coronary Artery Disease, Hx Hypercholesterolemia, Hx Hypertension Denies: Hx DVT, Hx Pulmonary Embolism Pulmonary Medical History: Reports: Hx COPD Denies: Hx Asthma, Hx Sleep Apnea Neurological Medical History: Denies: Hx Seizures Endocrine Medical History: Reports: Hx Diabetes Mellitus Type 2, Hx Hypothyroidism. Denies: Hx Hyperthyroidism Renal/ Medical History: Denies: Hx Peritoneal Dialysis Malignancy Medical History: Reports: Hx Lung Cancer GI Medical History: Denies: Hx Cirrhosis, Hx Gastroesophageal Reflux Disease, Hx Hepatitis Psychiatric Medical History: Denies: Hx Depression Infectious Medical History: Denies: Hx C-Diff, Hx Hepatitis, Hx MRSA Past Surgical History: Reports: Hx Appendectomy, Hx Hysterectomy - Immunizations Hx Diphtheria, Pertussis, Tetanus Vaccination: Yes Review of Systems - Review of Systems Notes: REVIEW OF SYSTEMS: CONSTITUTIONAL : Denies fever, chills, or sweats. Denies recent illness. EENT: Denies eye, ear, throat, or mouth pain or symptoms. Denies nasal or sinus congestion or discharge. Denies throat, tongue, or mouth swelling or difficulty swallowing. CARDIOVASCULAR: Denies chest pain. Denies palpitations or racing or irregular heart beat. Denies ankle edema. RESPIRATORY: Denies cough, cold, or chest congestion. Denies shortness of breath, difficulty breathing, or wheezing. GASTROINTESTINAL: Denies abdominal pain or distention. Denies nausea, vomiting , or diarrhea. Denies blood in vomitus, stools, or per rectum. Denies black, tarry stools. Denies constipation. GENITOURINARY: Denies difficulty urinating, painful urination, burning, frequency, blood in urine, or discharge. FEMALE GENITOURINARY: Denies vaginal bleeding, heavy or abnormal periods, irregular periods. Denies vaginal discharge or odor. MUSCULOSKELETAL: Denies back or neck pain or stiffness. Denies joint pain or swelling. SKIN: Denies rash, lesions or sores. HEMATOLOGIC : Patient reports easy bruising and bleeding. LYMPHATIC: Denies swollen, enlarged glands. NEUROLOGICAL: Denies confusion or altered mental status. Denies passing out or loss of consciousness. Denies dizziness or lightheadedness. Denies headache. Denies weakness or paralysis or loss of use of either side. Denies problems with gait or speech. Denies sensory loss, numbness, or tingling. Denies seizures. PSYCHIATRIC: Denies anxiety or stress. Denies depression, suicidal ideation, or homicidal ideation. ALL OTHER SYSTEMS REVIEWED AND NEGATIVE. Dictation was performed using [employer] voice recognition software Physical Exam - Vital signs Vitals: Temp 98.0 F 02/07/17 04:22 - Notes Notes: PHYSICAL EXAMINATION: GENERAL: Well-appearing, well-nourished and in no acute distress. HEAD: Atraumatic, normocephalic. EYES: Pupils equal round and reactive to light, extraocular movements intact, conjunctiva are normal. ENT: Nares patent, oropharynx clear without exudates. Moist mucous membranes. Patient has evidence for previous bleeding left naris appears to be from the nasal septum. NECK: Normal range of motion, supple without lymphadenopathy LUNGS: Breath sounds clear to auscultation bilaterally and equal. No wheezes rales or rhonchi. HEART: Regular rate and rhythm without murmurs ABDOMEN: Soft, nontender, nondistended abdomen. No guarding, no rebound. No masses appreciated. Female : deferred Musculoskeletal: Normal range of motion, no pitting or edema. No cyanosis. NEUROLOGICAL: Cranial nerves grossly intact. Normal speech, normal gait. Normal sensory, motor exams PSYCH: Normal mood, normal affect. SKIN: Warm, Dry, normal turgor, no rashes or lesions noted. Significant ecchymosis noted on both arms. No bony tenderness noted there. Distally she is neurovascularly intact. Course - Re-evaluation Re-evalutation: 02/07/17 04:52 Patient was given Afrin nasal spray to the left nostril and a nasal clip using tongue depressor as well as made for the patient. The nasal clip was not placed upon the patient initially, as the patient was not bleeding. Blood pressure remained stable. 02/07/17 04:55 On repeat exam there is no further bleeding. Vital signs are stable. No significant anemia or thrombocytopenia. 02/07/17 06:19 - Vital Signs Vital signs: Temp Pulse Resp BP Pulse Ox 98.0 F 02/07/17 04:22 - Laboratory Result Diagrams: 02/07/17 04:40 02/07/17 04:40 Laboratory results interpreted by me: 02/07/17 02/07/17 04:40 04:40 WBC 12.4 H RBC 3.51 L Hgb 9.2 L Hct 28.6 L MCH 26.2 L RDW 18.1 H Seg Neuts % (Manual) 91 H Lymphocytes % (Manual) 4 L Abs Neuts (Manual) 11.3 H Carbon Dioxide 31 H BUN 25 H Glucose 116 H AST 42 H Total Protein 5.6 L Albumin 2.9 L Discharge - Discharge Clinical Impression: Epistaxis, recurrent, Coagulopathy Contusion Qualifiers: Encounter type: initial encounter Contusion area: wrist Laterality: unspecified laterality Qualified Code(s): S60.219A - Contusion of unspecified wrist, initial encounter Condition: Stable Disposition: HOME-SNF (ED ONLY) Instructions: Nosebleed Instructions (OM) Additional Instructions: If bleeding recurs, then use the decongestant nasal spray followed by 20 minutes of using the wooden nasal clip that we created for you tonight. Recommend not taking Xarelto for at least 3 days due to the nosebleeds and bruising.
[2017-02-07 05:28] LABS: HEMATOCRIT 28.6 % (36.0-47.0); HEMOGLOBIN 9.2 g/dL (12.0-15.5); MEAN CORPUSCULAR HEMOGLOBIN 26.2 pg (27.0-33.4); MEAN CORPUSCULAR HGB CONC 32.1 g/dL (32.0-36.0); MEAN CORPUSCULAR VOLUME 81 fl (80-97); RED BLOOD COUNT 3.51 10^6/uL (3.72-5.28); RED CELL DISTRIBUTION WIDTH 18.1 % (11.5-14.0); WHITE BLOOD COUNT 12.4 10^3/uL (4.0-10.5)
[2017-02-07 05:37] LABS: ALANINE AMINOTRANSFERASE 34 U/L (9-52); ALBUMIN 2.9 g/dL (3.5-5.0); ALKALINE PHOSPHATASE 72 U/L (38-126); ANION GAP 5 (5-19); ASPARTATE AMINO TRANSFERASE 42 U/L (14-36); BILIRUBIN,DIRECT 0.4 mg/dL (0.0-0.4); BILIRUBIN,TOTAL 0.8 mg/dL (0.2-1.3); BLOOD UREA NITROGEN 25 mg/dL (7-20); CALCIUM 8.9 mg/dL (8.4-10.2); CARBON DIOXIDE 31 mmol/L (22-30); CHLORIDE 103 mmol/L (98-107); CREATININE RESULT 0.79 mg/dL (0.52-1.25); GLUCOSE 116 mg/dL (75-110); POTASSIUM 4.5 mmol/L (3.6-5.0); SODIUM 139.3 mmol/L (137-145); TOTAL PROTEIN 5.6 g/dL (6.3-8.2)
[2017-02-07 05:49] LABS: BASOPHILS % (MANUAL) 0 % (0-2); EOSINOPHILS % (MANUAL) 0 % (0-6); LYMPHOCYTES % (MANUAL) 4 % (13-45); TOTAL CELLS COUNTED 100
[2017-02-07 05:51] LABS: ANISOCYTOSIS 1+; HYPOCHROMASIA SLIGHT; OVALOCYTES 1+; POLYCHROMASIA SLIGHT; TEAR DROP CELLS SLIGHT; TOXIC GRANULATION SLIGHT
[2017-02-07 06:48] VITALS: BP 147/65
== END 2017-02-07 06:48 ==
LOC: ER 04:11
DX: S60.219A Contusion of unspecified wrist, initial encounter (principal); R04.0 Epistaxis; Z79.01 Long term (current) use of anticoagulants; Z87.891 Personal history of nicotine dependence; X58.XXXA Exposure to other specified factors, initial encounter
CPT/HCPCS: 36415; 80053; 85025; 99284

== ENCOUNTER 2017-02-08 14:40 | Emergency (ER) | payer MEDICARE, MEDICAID ==
[2017-02-08 16:06] LABS: HEMATOCRIT 30.1 % (36.0-47.0); HEMOGLOBIN 9.5 g/dL (12.0-15.5); HGB HCT DIFFERENCE -1.6; MEAN CORPUSCULAR HEMOGLOBIN 25.5 pg (27.0-33.4); MEAN CORPUSCULAR HGB CONC 31.5 g/dL (32.0-36.0); MEAN CORPUSCULAR VOLUME 81 fl (80-97); RED BLOOD COUNT 3.72 10^6/uL (3.72-5.28); RED CELL DISTRIBUTION WIDTH 18.7 % (11.5-14.0); WHITE BLOOD COUNT 12.7 10^3/uL (4.0-10.5)
[2017-02-08 16:27] LABS: ANION GAP 7 (5-19); BLOOD UREA NITROGEN 23 mg/dL (7-20); CALCIUM 8.9 mg/dL (8.4-10.2); CARBON DIOXIDE 33 mmol/L (22-30); CHLORIDE 99 mmol/L (98-107); CREATININE RESULT 0.86 mg/dL (0.52-1.25); GLUCOSE 135 mg/dL (75-110); POTASSIUM 3.9 mmol/L (3.6-5.0); SODIUM 138.7 mmol/L (137-145)
--- NOTE | 2017-02-08 16:43 | ER Document Report ---
ED Respiratory Problem - General Mode of Arrival: Medic Information source: Patient TRAVEL OUTSIDE OF THE [place] IN LAST 30 DAYS: No - HPI Patient complains to provider of: Cough Onset: Just prior to arrival Duration: Better, Gone now Similar symptoms previously: Yes Recently seen / treated by doctor: Yes <NEW YO - Last Filed: 02/08/17 16:44> <CHRISTIANO JHA - Last Filed: 02/08/17 17:41> - General Chief Complaint: Vomiting Stated Complaint: VOMITING Time Seen by Provider: 02/08/17 15:02 Notes: Patient was sent into today from the residence which she resides secondary to coughing up blood prior to arrival. Patient states it was a one time episode and she feels fine. Patient states she has not had any more nose bleeds since being seen last in the ED. Patient denies any cough, fever, or pain. Patient feels well and wants to return home. (NEW YO) - Related Data Allergies/Adverse Reactions: No Known Allergies Allergy (Unverified 10/16/15 06:35) Past Medical History - General Information source: [facility] Records - Social History Smoking Status: Former Smoker Chew tobacco use (# tins/day): No Frequency of alcohol use: None Drug Abuse: None Family History: Reviewed & Not Pertinent, Malignancy - Past Medical History Cardiac Medical History: Reports: Hx Congestive Heart Failure, Hx Coronary Artery Disease, Hx Hypercholesterolemia, Hx Hypertension Pulmonary Medical History: Reports: Hx COPD Endocrine Medical History: Reports: Hx Diabetes Mellitus Type 2, Hx Hypothyroidism Malignancy Medical History: Reports: Hx Lung Cancer Past Surgical History: Reports: Hx Appendectomy, Hx Hysterectomy - Immunizations Hx Diphtheria, Pertussis, Tetanus Vaccination: Yes <NEW YO - Last Filed: 02/08/17 16:44> Review of Systems - Review of Systems Respiratory: See HPI, Other - cough <NEW YO - Last Filed: 02/08/17 16:44> Physical Exam - Vital signs Interpretation: Normal - General General appearance: Appears well, Alert - HEENT Head: Normocephalic, Atraumatic Eyes: Normal Pupils: PERRL Nasal: Other - Dried blood in left nare. No bright red blood. Nasal cannula in place. Mucous membranes: Dry Pharynx: Normal. No: Blood in hypopharynx Neck: Normal - Respiratory Respiratory status: No respiratory distress Chest status: Nontender Breath sounds: Normal. No: Rales, Rhonchi, Wheezing Chest palpation: Normal - Cardiovascular Rhythm: Regular Heart sounds: Normal auscultation Murmur: No - Abdominal Inspection: Normal Distension: No distension Bowel sounds: Normal Tenderness: Nontender Organomegaly: No organomegaly - Back Back: Normal, Nontender - Extremities General upper extremity: Normal inspection, Nontender, Normal color, Normal ROM , Normal temperature General lower extremity: Normal inspection, Nontender, Normal color, Normal ROM , Normal temperature, Normal weight bearing. No: Tulio's sign - Neurological Neuro grossly intact: Yes Cognition: Normal Orientation: AAOx4 [place] Coma Scale Eye Opening: Spontaneous [place] Coma Scale Verbal: Oriented [place] Coma Scale Motor: Obeys Commands [place] Coma Scale Total: 15 Speech: Normal Motor strength normal: LUE, RUE, LLE, RLE Sensory: Normal - Psychological Associated symptoms: Normal affect, Normal mood - Skin Skin Temperature: Warm Skin Moisture: Dry Skin Color: Normal <CHRISTIANO JHA - Last Filed: 02/08/17 17:41> - Vital signs Vitals: Temp Pulse Resp BP Pulse Ox 98.7 F 84 18 113/52 L 97 02/08/17 15:03 02/08/17 15:03 02/08/17 15:03 02/08/17 15:03 02/08/17 15:03 Course - Laboratory Result Diagrams: 02/08/17 15:45 02/08/17 15:45 <NEW YO - Last Filed: 02/08/17 16:44> - Laboratory Result Diagrams: 02/08/17 15:45 02/08/17 15:45 <CHRISTIANO JHA - Last Filed: 02/08/17 17:41> - Re-evaluation Re-evalutation: 02/08/17 17:40 Patient is an 82-year-old female who comes in because per her facility she had coughed up blood. Patient states that she has not had any cough or fever today. Patient was seen yesterday for a nosebleed. Patient denies any bleeding today. There is some confusion as to if the patient had packing in her nose. Patient states that she did not and I do not see any documentation in the chart the patient's nose was packed. Blood work was repeated. Anemia and platelets are baseline. Patient had been instructed to hold her blood thinner which her oncologist was not happy about. Family is also wondering about decreasing or stopping the patient's prednisone. Patient has a history of COPD and has been on 20 of prednisone twice daily for quite some time. Recommend that she discuss that with her primary care physician or the physician at the facility. Otherwise. Patient appears well. Taking p.o. Patient wants to go back to her facility at this time. Stable for discharge. ( CHRISTIANO JHA) - Vital Signs Vital signs: Temp Pulse Resp BP Pulse Ox 97.8 F 70 18 101/54 L 98 02/08/17 17:12 02/08/17 17:12 02/08/17 17:12 02/08/17 17:12 02/08/17 17:12 - Laboratory Laboratory results interpreted by me: 02/08/17 02/08/17 15:45 15:45 WBC 12.7 H Hgb 9.5 L Hct 30.1 L MCH 25.5 L MCHC 31.5 L RDW 18.7 H Seg Neuts % (Manual) 87 H Lymphocytes % (Manual) 3 L Abs Neuts (Manual) 11.6 H Carbon Dioxide 33 H BUN 23 H Glucose 135 H Discharge <NEW YO - Last Filed: 02/08/17 16:44> <CHRISTIANO JHA - Last Filed: 02/08/17 17:41> - Discharge Clinical Impression: Epistaxis, recurrent Condition: Stable Disposition: HOME, SELF-CARE Instructions: Nosebleed Instructions ([facility]) Referrals: KD CISNEROS PA-C [Primary Care Provider] - Follow up as needed Scribe Attestation: 02/08/17 17:41 I personally performed the services described in the documentation, reviewed and edited the documentation which was dictated to the scribe in my presence, and it accurately records my words and actions. (CHRISTIANO JHA)
[2017-02-08 16:47] LABS: BAND NEUTROPHILS % (MANUAL) 4 % (3-5); BASOPHILS % (MANUAL) 0 % (0-2); EOSINOPHILS % (MANUAL) 0 % (0-6); LYMPHOCYTES % (MANUAL) 3 % (13-45); TOTAL CELLS COUNTED 100
[2017-02-08 16:51] LABS: ANISOCYTOSIS 1+; HYPOCHROMASIA 1+; OVALOCYTES 1+; POIKILOCYTOSIS 1+; POLYCHROMASIA SLIGHT; TARGET CELLS SLIGHT; TEAR DROP CELLS SLIGHT
[2017-02-08 17:02] LABS: PROTHROMBIN TIME 13.5 SEC (11.4-15.4)
[2017-02-08 17:03] LABS: PARTIAL THROMBOPLASTIN TIME 23.7 SEC (23.5-35.8)
[2017-02-08 17:13] VITALS: BP 101/54
== END 2017-02-08 17:30 | disposition home or self-care (01) ==
LOC: ER 14:40
DX: R04.0 Epistaxis (principal); D64.9 Anemia, unspecified; I25.10 Atherosclerotic heart disease of native coronary artery without angina pectoris; I10 Essential (primary) hypertension; J44.9 Chronic obstructive pulmonary disease, unspecified; E11.9 Type 2 diabetes mellitus without complications; Z87.891 Personal history of nicotine dependence; Z85.118 Personal history of other malignant neoplasm of bronchus and lung; Z79.01 Long term (current) use of anticoagulants; Z79.52 Long term (current) use of systemic steroids
CPT/HCPCS: 36415; 80048; 85025; 85610; 85730; 99284

== ENCOUNTER 2017-02-26 22:45 | Emergency (ER) | payer MEDICARE, MEDICAID ==
[2017-02-26] MEDS ORDERED: IPRATROPIUM/ALBUTEROL 0.5-2.5 MG/3 ML AMPUL NEB ONE ×3 (23:16→23:44)
[2017-02-26 23:32] LABS: ABSOLUTE LYMPHOCYTES (AUTO) 1.8 10^3/uL (0.5-4.7); ABSOLUTE MONOCYTES (AUTO) 0.8 10^3/uL (0.1-1.4); ABSOLUTE NEUT (AUTO) 8.7 10^3/uL (1.7-8.2); BASOPHILS % (AUTO) 0.1 % (0-2); EOSINOPHILS % (AUTO) 0.1 % (0-6); HEMATOCRIT 30.5 % (36.0-47.0); HEMOGLOBIN 9.4 g/dL (12.0-15.5); HGB HCT DIFFERENCE -2.3; LYMPHOCYTES % (AUTO) 15.6 % (13-45); MEAN CORPUSCULAR HEMOGLOBIN 24.1 pg (27.0-33.4); MEAN CORPUSCULAR HGB CONC 30.7 g/dL (32.0-36.0); MEAN CORPUSCULAR VOLUME 79 fl (80-97); MONOCYTES % (AUTO) 6.7 % (3-13); RED BLOOD COUNT 3.89 10^6/uL (3.72-5.28); RED CELL DISTRIBUTION WIDTH 19.7 % (11.5-14.0); SEGMENTED NEUTROPHILS % (AUTO) 77.5 % (42-78); WHITE BLOOD COUNT 11.3 10^3/uL (4.0-10.5)
[2017-02-26 23:33] LABS: PROTHROMBIN TIME 34.3 SEC (11.4-15.4)
[2017-02-26 23:34] LABS: PARTIAL THROMBOPLASTIN TIME 61.9 SEC (23.5-35.8)
[2017-02-26 23:36] LABS: ALANINE AMINOTRANSFERASE 33 U/L (9-52); ALBUMIN 3.5 g/dL (3.5-5.0); ALKALINE PHOSPHATASE 82 U/L (38-126); ANION GAP 9 (5-19); ASPARTATE AMINO TRANSFERASE 36 U/L (14-36); BILIRUBIN,DIRECT 0.4 mg/dL (0.0-0.4); BILIRUBIN,TOTAL 0.9 mg/dL (0.2-1.3); BLOOD UREA NITROGEN 20 mg/dL (7-20); CALCIUM 9.3 mg/dL (8.4-10.2); CARBON DIOXIDE 37 mmol/L (22-30); CHLORIDE 94 mmol/L (98-107); CREATININE RESULT 0.82 mg/dL (0.52-1.25); GLUCOSE 139 mg/dL (75-110); POTASSIUM 3.3 mmol/L (3.6-5.0); SODIUM 140.1 mmol/L (137-145); TOTAL PROTEIN 6.7 g/dL (6.3-8.2)
[2017-02-26] MEDS ORDERED: MAGNESIUM SULFATE/D5W 100 ML IV PRN (23:44)
[2017-02-26] MEDS ORDERED: CEFEPIME 2 GM/D5W RTU 50 ML IV ONE (23:45)
[2017-02-26 23:58] LABS: VENOUS BLOOD BASE EXCESS 9.7 mmol/L; VENOUS BLOOD HCO3 37.1 mmol/L (20-32); VENOUS BLOOD PH 7.36 (7.30-7.42)
--- NOTE | 2017-02-26 23:58 | ER Document Report ---
ED Respiratory Problem - General Chief Complaint: Shortness Of Breath Stated Complaint: WEAKNESS Time Seen by Provider: 02/26/17 23:37 Notes: Patient is an 82-year-old female that comes from [facility] by EMS for chief complaint of respiratory distress. Patient has had worsening difficulty breathing for the past 2 weeks, she has developed a productive cough with green sputum production over the past 2 days, she is unsure of fevers. Patient having difficulty giving history due to labored breathing on initial examination. Past medical history of COPD with chronic 2 liter 24/7 nasal cannula oxygen dependence, CHF, type 2 diabetes, patient also has a history of lung cancer which was treated with chemo and radiation with no required resection. Patient is on chronic steroids. TRAVEL OUTSIDE OF THE [place] IN LAST 30 DAYS: No - Related Data Allergies/Adverse Reactions: No Known Allergies Allergy (Unverified 10/16/15 06:35) Past Medical History - General Information source: Patient - Social History Smoking Status: Former Smoker Chew tobacco use (# tins/day): No Frequency of alcohol use: None Drug Abuse: None Lives with: Retirement - assisted living Family History: Reviewed & Not Pertinent, Malignancy Patient has suicidal ideation: No Patient has homicidal ideation: No - Past Medical History Cardiac Medical History: Reports: Hx Congestive Heart Failure, Hx Coronary Artery Disease, Hx Hypercholesterolemia, Hx Hypertension Denies: Hx DVT, Hx Pulmonary Embolism Pulmonary Medical History: Reports: Hx COPD Denies: Hx Asthma, Hx Sleep Apnea Neurological Medical History: Denies: Hx Seizures Endocrine Medical History: Reports: Hx Diabetes Mellitus Type 2, Hx Hypothyroidism. Denies: Hx Hyperthyroidism Renal/ Medical History: Denies: Hx Peritoneal Dialysis Malignancy Medical History: Reports: Hx Lung Cancer GI Medical History: Denies: Hx Cirrhosis, Hx Gastroesophageal Reflux Disease, Hx Hepatitis Psychiatric Medical History: Denies: Hx Depression Infectious Medical History: Denies: Hx C-Diff, Hx Hepatitis, Hx MRSA Past Surgical History: Reports: Hx Appendectomy, Hx Hysterectomy - Immunizations Hx Diphtheria, Pertussis, Tetanus Vaccination: Yes Review of Systems - Review of Systems Constitutional: No symptoms reported EENT: No symptoms reported Cardiovascular: See HPI Respiratory: See HPI Gastrointestinal: No symptoms reported Genitourinary: No symptoms reported Female Genitourinary: No symptoms reported Musculoskeletal: No symptoms reported Skin: No symptoms reported Hematologic/Lymphatic: No symptoms reported Neurological/Psychological: No symptoms reported Physical Exam - Vital signs Vitals: Pulse Ox 95 02/26/17 23:00 - General General appearance: Anxious In distress: Moderate - HEENT Head: Normocephalic, Atraumatic Eyes: Normal Pupils: PERRL Mouth/Lips: Normal Mucous membranes: Normal Pharynx: Normal Neck: Normal - Respiratory Respiratory status: Respiratory distress, Labored, Tachypnea Breath sounds: Decreased air movement, Rhonchi, Wheezing - Cardiovascular Rhythm: Regular, Tachycardia Heart sounds: Normal auscultation, S1 appreciated, S2 appreciated - Abdominal Inspection: Normal Tenderness: Nontender - Back Back: Normal, Nontender. No: Tender - Extremities General upper extremity: Normal inspection, Nontender, Normal ROM, Normal strength General lower extremity: Normal inspection, Nontender, Normal ROM, Normal strength. No: Edema - Neurological Neuro grossly intact: Yes Cognition: Normal Orientation: AAOx4 [place] Coma Scale Eye Opening: Spontaneous [place] Coma Scale Verbal: Oriented [place] Coma Scale Motor: Obeys Commands [place] Coma Scale Total: 15 Speech: Normal Motor strength normal: LUE, RUE, LLE, RLE Sensory: Normal - Skin Skin Temperature: Warm Skin Moisture: Dry Skin Color: Normal Course - Re-evaluation Re-evalutation: On initial examination patient is in respiratory distress with labored breathing , tachypnea, wheezing and rhonchi throughout all lung aviles, patient tachycardic. Patient is not hypoxic on oxygen, however because of her respiratory distress she was placed on BiPAP, magnesium, DuoNeb's, Solu-Medrol initiated. On reevaluation patient is improving significantly, breathing is much less labored, tachypnea has resolved, patient is still somewhat tachycardic. Leukocytosis noted, lactic acid is elevated at 3.9, patient with productive cough that is worsening over the past 2 days and has green sputum reportedly. Patient treated with cefepime for potential pneumonia. Blood gas does not show acidosis but shows significantly elevated CO2 with elevated bicarbonate. Chest x-ray with no acute abnormality. EKG showing flattened T waves but no ischemic T waves or ST segment changes. Troponin is elevated at 0.499, suspect due to respiratory effort and possible hypoxia. Will trend. Patient is now significantly improved and is relaxed. Patient was discussed with Dr. See. 02/27/17 Cycle troponin shows elevated level compared to prior at 0.578. Discussed with hospitalist, Dr. Dorsey, because of elevating troponin along with patient's multiple comorbidities and her current workup he does not recommend she be admitted to this hospital. I discussed with patient, she states that she potentially would desire a cardiac catheterization if this was needed or indicated, she requests that her son be spoken to. Patient states that she wants to be resuscitated if needed. 02/27/17 I spoke with patient's son, [place], he states that he understands the current situation and that he would like her to be transferred to [place]. 02/27/17 04:15 Call placed to [facility], pending call back. Spoke with Dr. Porter, patient accepted for transfer. Pending bed assignment. - Vital Signs Vital signs: Temp Pulse Resp BP Pulse Ox 99.3 F 111 H 17 140/71 H 98 02/26/17 23:05 02/26/17 23:05 02/27/17 04:40 02/27/17 04:01 02/27/17 04:40 - Laboratory Result Diagrams: 02/26/17 23:05 02/26/17 23:05 Laboratory results interpreted by me: 02/26/17 02/26/17 02/26/17 23:05 23:05 23:05 WBC 11.3 H Hgb 9.4 L Hct 30.5 L MCV 79 L MCH 24.1 L MCHC 30.7 L RDW 19.7 H Absolute Neutrophils 8.7 H PT 34.3 H APTT 61.9 H VBG pCO2 VBG HCO3 Potassium 3.3 L Chloride 94 L Carbon Dioxide 37 H Glucose 139 H Lactic Acid 02/26/17 02/26/17 23:05 23:05 WBC Hgb Hct MCV MCH MCHC RDW Absolute Neutrophils PT APTT VBG pCO2 66.5 H* VBG HCO3 37.1 H Potassium Chloride Carbon Dioxide Glucose Lactic Acid 3.9 H Critical Care Note - Critical Care Note Total time excluding time spent on procedures (mins): 40 - Respiratory distress , respiratory failure, elevated troponin Comments: Please allow 40 minutes of critical care time for patient with respiratory distress and failure, COPD exacerbation, suspected pneumonia, elevated troponin , requiring BiPAP therapy, duo nebs, steroids, antibiotics, magnesium, multiple re-evaluations, consultation with hospitalist and [facility] center for transfer to tertiary care center. Discharge - Discharge Clinical Impression: Respiratory distress, Productive cough, Elevated troponin, COPD exacerbation Pneumonia Qualifiers: Pneumonia type: due to unspecified organism Laterality: unspecified laterality Lung location: unspecified part of lung Qualified Code(s): J18.9 - Pneumonia, unspecified organism Condition: Stable Disposition: [facility]
[2017-02-26 23:59] LABS: VENOUS BLOOD PCO2 66.5 mmHg (35-63)
--- NOTE | 2017-02-27 00:13 | EKG REPORT ---
SEVERITY:- ABNORMAL ECG - SINUS TACHYCARDIA PROBABLE LEFT ATRIAL ABNORMALITY BORDERLINE INFERIOR Q WAVES BORDERLINE T ABNORMALITIES, DIFFUSE LEADS : Confirmed by: Micheal Joyce 27-Feb-2017 00:12:54
[2017-02-27] MEDS ORDERED: NORMAL SALINE 1000 ML 500 ML IV ONE (00:18)
--- NOTE | 2017-02-27 00:32 | RADIOLOGY REPORT (SQ) ---
EXAM DESCRIPTION: CHEST SINGLE VIEW COMPLETED DATE/TIME: 02/26/2017 11:46 pm REASON FOR STUDY: SOB COMPARISON: 12/08/2016. CT, 12/20/2016. EXAM PARAMETERS: NUMBER OF VIEWS: One view. TECHNIQUE: Single frontal radiographic view of the chest acquired. RADIATION DOSE: NA LIMITATIONS: None. FINDINGS: LUNGS AND PLEURA: Moderate left lung volume. Small atelectasis or scar in the left mid juli ng field. Mild interstitial markings. Stable. MEDIASTINUM AND HILAR STRUCTURES: No masses. Mild left-sided mediastinal shift. HEART AND VASCULAR STRUCTURES: Heart normal in size. Normal vasculature. BONES: No acute findings. HARDWARE: None in the chest. OTHER: No other significant finding. IMPRESSION: No acute cardiopulmonary findings. Stable post treatment appearance, previously describ ed history of lung cancer. TECHNICAL DOCUMENTATION: JOB ID: [id number]
[2017-02-27] MEDS ORDERED: ASPIRIN 81 MG TABLET, CHEWABLE PO ONE (02:58)
[2017-02-27] MEDS ORDERED: POTASSIUM CHLORIDE 10 MEQ TABLET.SA PO ONE (04:41)
[2017-02-27 08:50] VITALS: BP 136/64
--- NOTE | 2017-02-27 11:01 | EKG REPORT ---
SEVERITY:- ABNORMAL ECG - SINUS RHYTHM NONSPECIFIC T ABNORMALITIES, DIFFUSE LEADS BORDERLINE PROLONGED QT INTERVAL : Confirmed by: Micheal Joyce 27-Feb-2017 11:00:34
== END 2017-02-27 08:49 | disposition short-term general hospital (02) ==
LOC: ER 22:45
DX: J18.9 Pneumonia, unspecified organism (principal); J96.90 Respiratory failure, unspecified, unspecified whether with hypoxia or hypercapnia; J44.1 Chronic obstructive pulmonary disease with (acute) exacerbation; Z99.81 Dependence on supplemental oxygen; R74.8 Abnormal levels of other serum enzymes; D72.829 Elevated white blood cell count, unspecified; R05 Cough; R00.0 Tachycardia, unspecified; I25.10 Atherosclerotic heart disease of native coronary artery without angina pectoris; I10 Essential (primary) hypertension; E11.9 Type 2 diabetes mellitus without complications; Z85.118 Personal history of other malignant neoplasm of bronchus and lung; Z92.21 Personal history of antineoplastic chemotherapy; Z92.3 Personal history of irradiation; Z79.899 Other long term (current) drug therapy; Z87.891 Personal history of nicotine dependence
CPT/HCPCS: 93005 ×2; 94640 ×2; 99285; 96375; 96365; 36415; 87040; 83605 ×2; 83735; 85025; 85610; 85730; 80053; 84484; 82803; 71010; 93010 ×2; 94660; A9270 ×4; J3475; J7030; J0692; J7620

== ENCOUNTER 2017-03-28 21:59 | Inpatient (IN) | payer MEDICARE, MEDICAID, OTHER ==
--- NOTE | 2017-03-28 22:52 | RADIOLOGY REPORT (SQ) ---
EXAM DESCRIPTION: CHEST SINGLE VIEW COMPLETED DATE/TIME: 03/28/2017 10:42 pm REASON FOR STUDY: weakness COMPARISON: 02/26/2017 EXAM PARAMETERS: NUMBER OF VIEWS: One view. TECHNIQUE: Single frontal radiographic view of the chest acquired. RADIATION DOSE: NA LIMITATIONS: None. FINDINGS: LUNGS AND PLEURA: Parenchymal opacity at the left base. Right lung is clear. MEDIASTINUM AND HILAR STRUCTURES: Left-sided post radiation changes. HEART AND VASCULAR STRUCTURES: Heart normal in size. Normal vasculature. BONES: No acute findings. HARDWARE: None in the chest. OTHER: No other significant finding. IMPRESSION: Suspect left lower lobe pneumonia. TECHNICAL DOCUMENTATION: JOB ID: [id number]
--- NOTE | 2017-03-28 22:53 | RADIOLOGY REPORT (SQ) ---
EXAM DESCRIPTION: KUB/ABDOMEN (SINGLE VIEW) COMPLETED DATE/TIME: 03/28/2017 10:42 pm REASON FOR STUDY: abdominal distention COMPARISON: None. NUMBER OF VIEWS: One view. TECHNIQUE: Supine radiographic image of the abdomen acquired. LIMITATIONS: None. FINDINGS: BOWEL GAS PATTERN: Normal bowel gas pattern. No dilated loops. CALCIFICATIONS: No suspicious calcifications. SOFT TISSUES: No gross mass or suggestion of organomegaly. HARDWARE: None in the abdomen. BONES: Osteopenia. Hardware in the left proximal femur. OTHER: No other significant finding. IMPRESSION: NO RADIOGRAPHIC EVIDENCE FOR ACUTE ABDOMINAL DISEASE. TECHNICAL DOCUMENTATION: JOB ID: [id number] [employer]- All Rights Reserved
--- NOTE | 2017-03-28 22:55 | RADIOLOGY REPORT (SQ) ---
EXAM DESCRIPTION: CT HEAD WITHOUT COMPLETED DATE/TIME: 03/28/2017 10:44 pm REASON FOR STUDY: AMS COMPARISON: None. TECHNIQUE: Axial images acquired through the brain without intravenous contrast. Images reviewed wi th bone, brain and subdural windows. Images stored on PACS. All CT scanners at this facility use dose modulation, iterative reconstruction, and/or weight based d osing when appropriate to reduce radiation dose to as low as reasonably achievable (ALARA). [facility]: Dose Right [facility]: CareDose [facility]: Dose Right [facility]: Teradose 4D [facility]: Aventeon RADIATION DOSE: Up-to-date CT equipment and radiation dose reduction techniques were employed. CTDIv ol: 64.6 mGy. DLP: 1034 mGy-cm.mGy. LIMITATIONS: None. FINDINGS: VENTRICLES: Prominent. CEREBRUM: No masses. No hemorrhage. No midline shift. Areas of low density in the white matter mos t likely due to chronic micro-vascular ischemic change. No evidence for acute infarction. CEREBELLUM: No masses. No hemorrhage. No alteration of density. No evidence for acute infarction. EXTRAAXIAL SPACES: Age-related involutional change. No fluid collections. No masses. ORBITS AND GLOBE: No intra- or extraconal masses. Normal contour of globe without masses. CALVARIUM: No fracture. PARANASAL SINUSES: Chronic sphenoid sinus disease. SOFT TISSUES: No mass or hematoma. OTHER: No other significant finding. IMPRESSION: CHRONIC CHANGES OF ATROPHY AND MICROVASCULAR ISCHEMIA. NO ACUTE PROCESS. TECHNICAL DOCUMENTATION: JOB ID: [id number] Quality ID # [id number]: Final reports with documentation of one or more dose reduction techniques (e.g., Au tomated exposure control, adjustment of the mA and/or kV according to patient size, use of iterative reconstruction technique) 2010 [facility]- All Rights Reserved
[2017-03-28] MEDS ORDERED: METOCLOPRAMIDE HCL INJ/PF 10 MG/2 ML SDV IV ONE (23:03)
--- NOTE | 2017-03-28 23:11 | ER Document Report ---
ED General - General Chief Complaint: Weakness Stated Complaint: WEAKNESS Time Seen by Provider: 03/28/17 22:08 Notes: The patient is an 82-year-old female, past medical history COPD (on 3L O2 at home), A. fib, hypertension, CHF, presents from [facility] with increasing shortness of breath, general weakness and nausea. She has had increased productive cough during this time also. Also, she has not had a bowel movement in 3 days. Patient denies vomiting, abdominal pain, fevers, urinary symptoms, headache, focal weakness, numbness, tingling, ataxia, blurry vision, flank pain or rash. TRAVEL OUTSIDE OF THE [place] IN LAST 30 DAYS: No - Related Data Allergies/Adverse Reactions: No Known Allergies Allergy (Unverified 10/16/15 06:35) Past Medical History - General Information source: Patient - Social History Smoking Status: Former Smoker Family History: Reviewed & Not Pertinent, Malignancy - Past Medical History Cardiac Medical History: Reports: Hx Congestive Heart Failure, Hx Coronary Artery Disease, Hx Hypercholesterolemia, Hx Hypertension Denies: Hx DVT, Hx Pulmonary Embolism Pulmonary Medical History: Reports: Hx COPD Denies: Hx Asthma, Hx Sleep Apnea Neurological Medical History: Denies: Hx Seizures Endocrine Medical History: Reports: Hx Diabetes Mellitus Type 2, Hx Hypothyroidism. Denies: Hx Hyperthyroidism Renal/ Medical History: Denies: Hx Peritoneal Dialysis Malignancy Medical History: Reports: Hx Lung Cancer GI Medical History: Denies: Hx Cirrhosis, Hx Gastroesophageal Reflux Disease, Hx Hepatitis Psychiatric Medical History: Denies: Hx Depression Infectious Medical History: Denies: Hx C-Diff, Hx Hepatitis, Hx MRSA Past Surgical History: Reports: Hx Appendectomy, Hx Hysterectomy - Immunizations Hx Diphtheria, Pertussis, Tetanus Vaccination: Yes Review of Systems - Review of Systems Notes: REVIEW OF SYSTEMS: CONSTITUTIONAL: -fevers, -chills EENT: -eye pain, -difficulty swallowing, -nasal congestion CARDIOVASCULAR:-chest pain, -syncope. RESPIRATORY: +cough, +SOB GASTROINTESTINAL: -abdominal pain, +nausea, -vomiting, -diarrhea, +constipation GENITOURINARY: -dysuria, -hematuria MUSCULOSKELETAL: -back pain, -neck pain SKIN: -rash or skin lesions. HEMATOLOGIC: -easy bruising or bleeding. LYMPHATIC: -swollen, enlarged glands. NEUROLOGICAL: -altered mental status or loss of consciousness, -headache, - neurologic symptoms PSYCHIATRIC: -anxiety, -depression. ALL OTHER SYSTEMS REVIEWED AND NEGATIVE. Physical Exam - Vital signs Vitals: Resp Pulse Ox 17 98 03/28/17 22:21 03/28/17 22:21 - Notes Notes: PHYSICAL EXAMINATION: GENERAL: Frail-appearing, in mild distress HEAD: Atraumatic, normocephalic. EYES: Pupils equal round and reactive to light, extraocular movements intact, sclera anicteric, conjunctiva are normal. ENT: nares patent, oropharynx clear without exudates. Moist mucous membranes. NECK: Normal range of motion, supple without lymphadenopathy LUNGS: Wheezing, mild tachypnea, crackles in left lower lobe HEART: Regular rate and rhythm without murmurs ABDOMEN: Soft, nontender, normoactive bowel sounds. No guarding, no rebound. No masses appreciated. EXTREMITIES: Normal range of motion, no pitting or edema. No cyanosis. NEUROLOGICAL: Cranial nerves grossly intact. Normal speech, normal gait. Normal sensory and motor exams. PSYCH: Normal mood, normal affect. SKIN: Warm, Dry, normal turgor, no rashes or lesions noted. Course - Re-evaluation Re-evalutation: Patient with evidence of left lower lobe pneumonia on chest x-ray. She is mildly tachypneic with a leukocytosis, but satting 97% on her home 3 L oxygen. Pt had a 4 beat run of V. tach while on the monitor, but she was asymptomatic at this time. Her primary care physician is Dr. Estefany Aburto. Based on her age and multiple comorbidities, will admit patient for IV antibiotics and further monitoring. 03/29/17 01:[address] Baldwin and will admit patient to [facility]. - Vital Signs Vital signs: Temp Pulse Resp BP Pulse Ox 22 H 107/47 L 99 03/29/17 01:01 03/29/17 01:01 03/29/17 01:01 - Laboratory Result Diagrams: 03/28/17 23:15 03/28/17 23:15 Laboratory results interpreted by me: 03/28/17 03/28/17 03/28/17 23:15 23:15 23:15 WBC 10.7 H Hgb 10.6 L Hct 34.3 L MCV 76 L MCH 23.4 L MCHC 31.0 L RDW 22.4 H Lymphocytes % 11.9 L VBG pH Sodium 132.5 L Chloride 97 L Glucose 249 H Calcium 8.2 L Alkaline Phosphatase 130 H Creatine Kinase < 20 L NT-Pro-B Natriuret Pep 526 H Total Protein 5.1 L Albumin 2.4 L 03/28/17 23:15 WBC Hgb Hct MCV MCH MCHC RDW Lymphocytes % VBG pH 7.44 H Sodium Chloride Glucose Calcium Alkaline Phosphatase Creatine Kinase NT-Pro-B Natriuret Pep Total Protein Albumin - Diagnostic Test Radiology reviewed: Image reviewed, Reports reviewed Radiology results interpreted by me: CXR: Left lower lobe pneumonia KUB: NAD CT Head: NAD - EKG Interpretation by Me EKG shows normal: Sinus rhythm, [place], Intervals, QRS Complexes, ST-T Waves Rate: Normal When compared to previous EKG there are: No significant change Discharge - Discharge Clinical Impression: COPD exacerbation Pneumonia Qualifiers: Pneumonia type: due to unspecified organism Laterality: left Lung location: lower lobe of lung Qualified Code(s): J18.1 - Lobar pneumonia, unspecified organism Condition: Stable Disposition: ADMITTED INPATIENT Admitting Provider: [place] [facility] Admitted: [facility]
[2017-03-28] MEDS ORDERED: IPRATROPIUM/ALBUTEROL 0.5-2.5 MG/3 ML AMPUL NEB ONE (23:29)
[2017-03-28] MEDS ORDERED: VANCOMYCIN HCL INJ 1000 MG VIAL IV ONE (23:30)
[2017-03-28] MEDS ORDERED: PIPERACILLIN/TAZOBACTAM 3.375 GM VIAL IV ONE (23:30)
[2017-03-28 23:31] LABS: ABSOLUTE BASOPHILS # (AUTO) 0.1 10^3/uL (0.0-0.2); ABSOLUTE LYMPHOCYTES (AUTO) 1.3 10^3/uL (0.5-4.7); ABSOLUTE MONOCYTES (AUTO) 1.2 10^3/uL (0.1-1.4); ABSOLUTE NEUT (AUTO) 8.2 10^3/uL (1.7-8.2); BASOPHILS % (AUTO) 0.6 % (0-2); EOSINOPHILS % (AUTO) 0.1 % (0-6); HEMATOCRIT 34.3 % (36.0-47.0); HEMOGLOBIN 10.6 g/dL (12.0-15.5); HGB HCT DIFFERENCE -2.5; LYMPHOCYTES % (AUTO) 11.9 % (13-45); MEAN CORPUSCULAR HEMOGLOBIN 23.4 pg (27.0-33.4); MEAN CORPUSCULAR VOLUME 76 fl (80-97); MONOCYTES % (AUTO) 10.9 % (3-13); RED BLOOD COUNT 4.54 10^6/uL (3.72-5.28); RED CELL DISTRIBUTION WIDTH 22.4 % (11.5-14.0); SEGMENTED NEUTROPHILS % (AUTO) 76.5 % (42-78); WHITE BLOOD COUNT 10.7 10^3/uL (4.0-10.5)
[2017-03-28 23:37] LABS: VENOUS BLOOD BASE EXCESS 5.3 mmol/L; VENOUS BLOOD HCO3 30.1 mmol/L (20-32); VENOUS BLOOD PCO2 45.3 mmHg (35-63); VENOUS BLOOD PH 7.44 (7.30-7.42)
[2017-03-28 23:56] LABS: ALANINE AMINOTRANSFERASE 32 U/L (9-52); ALBUMIN 2.4 g/dL (3.5-5.0); ALKALINE PHOSPHATASE 130 U/L (38-126); ANION GAP 9 (5-19); ASPARTATE AMINO TRANSFERASE 18 U/L (14-36); BILIRUBIN,DIRECT 0.3 mg/dL (0.0-0.4); BILIRUBIN,TOTAL 0.7 mg/dL (0.2-1.3); BLOOD UREA NITROGEN 18 mg/dL (7-20); CALCIUM 8.2 mg/dL (8.4-10.2); CARBON DIOXIDE 27 mmol/L (22-30); CHLORIDE 97 mmol/L (98-107); CREATININE RESULT 0.76 mg/dL (0.52-1.25); GLUCOSE 249 mg/dL (75-110); LIPASE 70.9 U/L (23-300); POTASSIUM 4.2 mmol/L (3.6-5.0); SODIUM 132.5 mmol/L (137-145); TOTAL PROTEIN 5.1 g/dL (6.3-8.2)
[2017-03-28 23:58] LABS: CREATINE KINASE < 20 U/L (30-135)
[2017-03-29 00:06] LABS: TROPONIN I 0.021 ng/mL
[2017-03-29] MEDS ORDERED: METHYLPREDNISOLONE INJ 125 MG/2 ML SDV IV ONE (01:56)
[2017-03-29 02:53] LABS: APPEARANCE,URINE SLIGHTLY-CLOUDY; BILIRUBIN,URINE NEGATIVE (NEGATIVE); GLUCOSE, URINE 150 mg/dL (NEGATIVE); KETONES,URINE NEGATIVE (NEGATIVE); LEUKOCYTE ESTERASE,URINE TRACE (NEGATIVE); NITRITE,URINE NEGATIVE (NEGATIVE); PROTEIN,URINE NEGATIVE (NEGATIVE); URINE SPECIFIC GRAVITY 1.025; UROBILINOGEN,URINE NEGATIVE mg/dL (<2.0)
[2017-03-29] MEDS ORDERED: GUAIFENESIN SYRP 200 MG/10 ML UDC PO PRN (04:49)
[2017-03-29] MEDS ORDERED: ALBUTEROL SULFATE 0.083% NEB 2.5 MG/3 ML AMPUL NEB PRN (04:49)
[2017-03-29] MEDS ORDERED: ACETAMINOPHEN 325 MG TABLET PO PRN ×2 (04:49→16:20)
[2017-03-29] MEDS ORDERED: GLUCAGON,HUMAN RECOMB 1 MG INJ IM PRN (04:50)
[2017-03-29] MEDS ORDERED: DEXTROSE 40% GEL 15 GM TUBE PO PRN ×2 (04:50)
[2017-03-29] MEDS ORDERED: DEXTROSE 50%-WATER 25 GM/50 ML DISP.SYRIN IV PRN ×2 (04:50)
[2017-03-29] MEDS ORDERED: METHYLPREDNISOLONE INJ 125 MG/2 ML SDV IV SCH (05:00)
[2017-03-29] MEDS ORDERED: PHARMACY COMMUNICATION ORDER MC NR (05:00)
[2017-03-29] MEDS ORDERED: VANCOMYCIN HCL 0 MG in DEXTROSE 5%-WATER 250 ML IV NR (05:00)
--- NOTE | 2017-03-29 05:13 | PDOC H&P ---
History of Present Illness Admission Date/PCP: 03/29/17 02:13 DOMINGO Castellon Patient complains of: Weakness and difficulty breathing History of Present Illness: JATINDER RODRIGUEZ is a 82 year old female resident of [facility], steroid-dependent and 24/7 home O2 dependent COPD, status post chemoradiation therapy but no surgery for lung cancer, along with underlying diastolic congestive heart failure, coronary artery disease, type 2 diabetes mellitus, hyperlipidemia, hypothyroidism, and atrial fibrillation, on Eliquis for same, who presents to the emergency room for evaluation of approximately 24 hour history of above complaints. Patient has been discussed with emergency room physician who evaluated the patient. She describes progressive weakness, along with gradual worsening of her chronic shortness of breath, in particular with much of any exertion. Increasingly productive cough. Nausea but no vomiting. Denies abdominal or chest pain, fever or chills. No diarrhea or dysuria. Hospitalized on our service December 06- of this year, with discharge diagnoses including atrial fibrillation with rapid ventricular response, pneumonia involving the left lung, urinary tract infection, and COPD exacerbation. History and physical and discharge summary have been reviewed.. Laboratory results are listed in [employer] and are reviewed. X-ray summary results are listed below, with full report(s) reviewed. . EKG reviewed. Social history/personal habits: . Lives at [facility]. 4 children. Ambulates with a walker. Former smoker. No use of alcohol or illicit drugs. No known drug allergies. Home medications initially autopopulated into [employer] may not accurately reflect patient's true medications, dosages, and/or frequencies. 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 Unfortunately, patient not certain of all medications/dosages/frequencies. REVIEW OF SYSTEMS: Constitutional: No fever or chills. Eyes: Wears glasses. ENT: No swallowing problems or complaints. Partial hearing loss. Pulmonary: See history and present illness. Cardiovascular: No current complaints, including chest pain. Gastrointestinal: See history and present illness. Skin: No current complaints, including rashes. Hematologic: Easy bruising. Neurologic: No current complaints, including numbness or tingling. Musculoskeletal: No current or chronic joint complaints, such as arthritis. Psychiatric: Denies anxiety or depression. Endocrine: No current complaints, including polyuria. Genitourinary: No current complaints, including dysuria. PHYSICAL EXAMINATION: 5 feet 2 inches tall. 71 kg. BMI 28.6 kg/m. Blood pressure 117/59. Pulse 67 and regular. Temperature 97.6. 100% saturation on 3 L oxygen per nasal cannula. Slightly overweight otherwise well-nourished well-developed elderly female appearing approximately her stated age. Pleasant awake alert and cooperative. Appears to feel a bit under the weather, and perhaps slightly fatigued. Mildly anxious, without agitation. Skin is warm and dry. No grossly obvious evidence of rash in areas of skin examined. No subcutaneous nodules palpated. ENT: Hearing grossly normal to normal conversation. Tongue midline on protrusion pink and slightly tacky. Eyes: No scleral icterus. Pupils equal and reactive to light at 4 mm. [place] conjunctivae. Neck is supple and nontender to gentle active range of motion and palpation. Midline trachea. No palpable thyroid nodule mass enlargement or tenderness. Lymphatic: No palpable cervical or clavicular nodes. Neck and lymphatic exams limited by patient body habitus. Psychiatric: Reasonable insight into acute and chronic medical issues. Oriented to time location and why here. Lungs: Auscultation reveals equal breath sounds bilaterally. No use of accessory respiratory muscles. Mildly coarse breath sounds bilaterally, more pronounced in the left base. Cardiovascular: Heart regular rate and rhythm, without gallop murmur or rub. No carotid or abdominal aortic bruits. No ankle or pedal edema. Faintly palpable dorsalis pedis pulses. Abdomen:soft slightly distended nontender with positive bowel sounds. Unable to adequately evaluate abdomen for masses or organomegaly due to distention. Extremities: Feet are warm and dry. No calf tenderness to compression. No grossly obvious visual evidence of calf swelling. Gentle manipulation of lower extremities fails to reveal any obvious evidence of injury or instability to knees hips or ankles. Neurologic: Moves upper extremities grossly normally. Patellar reflexes absent. Absent Babinski. Light touch is intact at feet. Dorsiflexion and plantarflexion of feet 5 / 5 and symmetric. Past Medical History Past Medical History: Please see also information from December 06, 2016 history and physical, which is reviewed. Cardiac Medical History: Reports: Congestive Heart Failure, Coronary Artery Disease, Hyperlipidema, Hypertension Denies: DVT, Pulmonary Embolism Pulmonary Medical History: Reports: Chronic Obstructive Pulmonary Disease (COPD) Denies: Asthma, Sleep Apnea Neurological Medical History: Denies: Seizures Endocrine Medical History: Reports: Diabetes Mellitus Type 2, Hypothyroidism Denies: Hyperthyroidism Malignancy Medical History: Reports: Lung Cancer GI Medical History: Denies: Cirrhosis, Gastroesophageal Reflux Disease, Hepatitis Psychiatric Medical History: Denies: Depression Infectious Medical History: Denies: Clostridium Difficile, Methicillin-Resistant Staph Aureus Past Surgical History Past Surgical History: Please see also information from December 06, 2016 history and physical, which is reviewed. Past Surgical History: Reports: Appendectomy, Hysterectomy Social History Information Source: Patient, Emergency Med Personnel, [facility] Records Lives with: Alf Smoking Status: Former Smoker Frequency of Alcohol Use: None Hx Recreational Drug Use: No Drugs: None Hx Prescription Drug Abuse: No - Advance Directive Resuscitation Status: Do Not Resuscitate Surrogate healthcare decision maker:: Eyoclsiz-wy-gye Shala Ly Family History Family History: Reviewed & Not Pertinent, Malignancy Parental Family History Reviewed: Yes Children Family History Reviewed: Yes Sibling(s) Family History Reviewed.: Yes Medication/Allergy Home Medications: Acetaminophen [Tylenol] 650 mg PO Q4HP PRN 03/29/17 Alprazolam [Alprazolam Odt] 1 tab PO BIDP PRN 03/29/17 Atorvastatin Calcium [Lipitor 40 mg Tablet] 40 mg PO QHS 03/29/17 Diltiazem HCl [Cardizem 30 mg Tablet] 30 mg PO Q8 03/29/17 Docusate Sodium [Colace 100 mg Capsule] 100 mg PO BID 03/29/17 Dronedarone Hydrochloride [Multaq 400 mg Tablet] 400 mg PO Q12 03/29/17 Ergocalciferol (Vitamin D2) [Vitamin D2] 50,000 unit PO MO@1000 03/29/17 Fluoxetine HCl [Prozac 20 mg Capsule] 20 mg PO QHS 03/29/17 Furosemide [Lasix] 20 mg PO DAILY 03/29/17 Insulin Aspart Protam & Aspart [Novolog Mix 70-30 Vial] 25 unit SQ QAM 03/29/17 Insulin Aspart Protam & Aspart [Novolog Mix 70-30 Vial] 50 unit SQ QPM 03/29/17 Insulin Aspart [Novolog Flexpen] 0 unit SUBCUT .SLD SCALE 03/29/17 Levothyroxine Sodium [Synthroid 0.05 mg Tablet] 50 mcg PO QAM 03/29/17 Melatonin/Pyridoxine HCl (B6) [Melatonin 1 mg Tablet] 1 each PO HSP PRN Montelukast Sodium [Singulair 10 mg Tablet] 10 mg PO QHS 03/29/17 Pantoprazole Sodium [Protonix] 40 mg PO QHS 03/29/17 Potassium Chloride 10 meq PO DAILY 03/29/17 Albuterol Sulfate [Ventolin 0.083% Neb 2.5 mg/3 mL Ampul] 1 vial NEB RTQ8HP PRN #0 04/01/17 Cefpodoxime Proxetil [Vantin 200 mg Tablet] 1 tab PO Q12 #14 tab 04/01/17 Guaifenesin [Mucinex Sr 600 mg Tablet.sa] 1,200 mg PO Q12 #12 tablet.sa Prednisone 20 mg PO DAILY #10 tablet 04/01/17 Allergies/Adverse Reactions: No Known Allergies Allergy (Unverified 10/16/15 06:35) Physical Exam Vital Signs: Temp Pulse Resp BP Pulse Ox 97.6 F 67 20 117/59 L 100 03/29/17 04:16 03/29/17 04:16 03/29/17 04:16 03/29/17 04:16 03/29/17 04:16 Intake & Output 03/28/17 03/29/17 03/30/17 00:59 00:59 00:59 Weight 71 kg Results Laboratory Results: 03/29/17 02:32 Urine Color YELLOW Urine Appearance SLIGHTLY-CLOUDY Urine pH 5.0 Ur Specific [place] 1.025 Urine Protein NEGATIVE Urine Glucose (UA) 150 H Urine Ketones NEGATIVE Urine Blood NEGATIVE Urine Nitrite NEGATIVE Ur Leukocyte Esterase TRACE H Urine WBC (Auto) 15 Urine RBC (Auto) 1 Impressions: Chest X-Ray 03/28/17 22:09 IMPRESSION: Suspect left lower lobe pneumonia. Head CT 03/28/17 22:09 IMPRESSION: CHRONIC CHANGES OF ATROPHY AND MICROVASCULAR ISCHEMIA. NO ACUTE PROCESS. KUB X-Ray 03/28/17 22:09 IMPRESSION: NO RADIOGRAPHIC EVIDENCE FOR ACUTE ABDOMINAL DISEASE. Assessment & Plan - Diagnosis (1) Type 2 diabetes mellitus Qualifiers: Diabetes mellitus complication status: without complication Diabetes mellitus retirement insulin use: unspecified retirement insulin use status Qualified Code(s): E11.9 - Type 2 diabetes mellitus without complications Is this a current diagnosis for this admission?: YesPlan: Diabetic cardiac diet. Accu-Cheks with appropriate sliding scale coverage. Resume home medications as appropriate once these have been determined and reviewed. (2) COPD exacerbation Is this a current diagnosis for this admission?: Yes (3) Hyponatremia Is this a current diagnosis for this admission?: YesPlan: Follow-up chemistry. (4) LLL pneumonia Qualifiers: Pneumonia type: due to unspecified organism Qualified Code(s): J18.1 - Lobar pneumonia, unspecified organism Is this a current diagnosis for this admission?: YesPlan: Patient will be admitted under COPD exacerbation and pneumonia protocol. Incentive spirometry twice a day. Scheduled DuoNeb's. As needed albuterol nebs. Solu-Medrol. Prevacid for gastritis prophylaxis. Antibiotics will consist of intravenous vancomycin, intravenous Levaquin, along with cefepime; pharmacy to assist with vancomycin dosing. I strongly encouraged patient to notify staff should patient feel that breathing is worsening. I have strongly encouraged patient not to get out of bed without notifying staff , to avoid a fall with injury. Knee high SCDs for DVT prophylaxis; with systemic anticoagulation, no need for Lovenox or heparin. Impression and plans were discussed with patient who concurs. Time spent in evaluation and management of patient: 68 minutes. (5) Anticoagulated Is this a current diagnosis for this admission?: YesPlan: Resume home medications as appropriate once these have been determined and reviewed. (6) Do not resuscitate Is this a current diagnosis for this admission?: YesPlan: Implications of DO NOT RESUSCITATE/DO NOT INTUBATE status discussed with patient. Discussed in layperson's terms. Implications understood. Patient is the health care decision maker. Patient conversation is lucid and appropriate. Patient desires DO NOT RESUSCITATE/DO NOT INTUBATE status, as has been the case in the past, during her November 2016 admission. Will honor patient wishes. (7) Hypothyroidism Qualifiers: Hypothyroidism type: unspecified Qualified Code(s): E03.9 - Hypothyroidism, unspecified Is this a current diagnosis for this admission?: YesPlan: Resume home medications as appropriate once these have been determined and reviewed.
[2017-03-29 05:16] LABS: ADD ON TESTING BLD IN LAB ACKNOWLEDGE
[2017-03-29 05:27] LABS: MAGNESIUM 1.8 mg/dL (1.6-2.3)
[2017-03-29] MEDS: LANSOPRAZOLE 30 MG TAB.RAP.DR PO SCH (05:53)
[2017-03-29] MEDS ORDERED: LEVOFLOXACIN 750 MG/D5W RTU 750 MG/150 ML RTUPB IV SCH (06:00)
[2017-03-29 07:16] LABS: ABSOLUTE LYMPHOCYTES (AUTO) 0.5 10^3/uL (0.5-4.7); ABSOLUTE MONOCYTES (AUTO) 0.1 10^3/uL (0.1-1.4); ABSOLUTE NEUT (AUTO) 6.1 10^3/uL (1.7-8.2); BASOPHILS % (AUTO) 0.3 % (0-2); HEMATOCRIT 32.3 % (36.0-47.0); HGB HCT DIFFERENCE -2.3; MEAN CORPUSCULAR HEMOGLOBIN 23.4 pg (27.0-33.4); MEAN CORPUSCULAR HGB CONC 30.9 g/dL (32.0-36.0); MEAN CORPUSCULAR VOLUME 76 fl (80-97); MONOCYTES % (AUTO) 1.5 % (3-13); RED BLOOD COUNT 4.26 10^6/uL (3.72-5.28); RED CELL DISTRIBUTION WIDTH 22.1 % (11.5-14.0); SEGMENTED NEUTROPHILS % (AUTO) 91.2 % (42-78); WHITE BLOOD COUNT 6.7 10^3/uL (4.0-10.5)
[2017-03-29 07:36] LABS: ANION GAP 5 (5-19); BLOOD UREA NITROGEN 15 mg/dL (7-20); CALCIUM 8.1 mg/dL (8.4-10.2); CARBON DIOXIDE 31 mmol/L (22-30); CHLORIDE 98 mmol/L (98-107); CREATININE RESULT 0.76 mg/dL (0.52-1.25); GLUCOSE 263 mg/dL (75-110); SODIUM 134.2 mmol/L (137-145)
[2017-03-29 07:37] LABS: POTASSIUM 4.7 mmol/L (3.6-5.0)
[2017-03-29] MEDS ORDERED: IPRATROPIUM/ALBUTEROL 0.5-2.5 MG/3 ML AMPUL NEB SCH (08:00)
--- NOTE | 2017-03-29 08:13 | EKG REPORT ---
SEVERITY:- ABNORMAL ECG - SINUS RHYTHM PROBABLE LEFT ATRIAL ABNORMALITY BORDERLINE INFERIOR Q WAVES BORDERLINE T ABNORMALITIES, ANT-LAT LEADS : Confirmed by: Valerio Duarte MD 29-Mar-2017 08:13:13
[2017-03-29] MEDS: INSULIN LISPRO 100 UNIT/ML 3 ML VIAL SUBCUT PRN ×4 (08:27→21:54)
[2017-03-29] MEDS: CEFEPIME 2 GM/D5W RTU 50 ML IV SCH ×2 (09:35→22:00)
[2017-03-29] MEDS ORDERED: BENZONATATE 100 MG CAPSULE PO PRN (09:38)
[2017-03-29] MEDS ORDERED: DRONEDARONE HYDROCHLORIDE 400 MG TABLET PO SCH (10:00)
[2017-03-29] MEDS: GUAIFENESIN 600 MG TABLET.SA PO SCH ×2 (10:21→21:57)
--- NOTE | 2017-03-29 10:33 | PROGRESS NOTE E ---
Progress Note NAME: JATINDER RODRIGUEZ : 1935 AGE: 82Y DATE: 03/29/2017 ROOM: 315 SUBJECTIVE: The patient is currently lying in bed. She is well known to me. The patient states that she feels very weak; however, her breathing has improved. The patient stated she had a significant amount of vomiting yesterday, but denied any choking or regurgitation. The patient denies any fevers feeling or chills, just mainly describes herself as overall very weak. She does have a strong cough, but is unable to produce any sputum, and the patient does not voice any other concerns at this time. REVIEW OF SYSTEMS: Rest of review of systems negative. MEDICATIONS: Medications have been reviewed. OBJECTIVE: GENERAL: The patient is an extremely pleasant 82-year-old female who is awake, alert, and oriented to person, place, time, and situation. She is verbal, conversational, does not appear to be in any acute distress. VITAL SIGNS: Temperature is 97.7, pulse 71, respirations 20, blood pressure is 104/50, oxygen saturation 99% on 3 L nasal cannula. SKIN: Warm and dry. No rash. Not diaphoretic. HEENT: Pupils equal, round, and reactive to light and accommodation. Conjunctivae pink. No JVP. CARDIOVASCULAR SYSTEM: Heart is irregularly irregular. There is no murmur or rub. CHEST: Diminished, symmetrical, unlabored. ABDOMEN: Soft, nontender, nondistended. BACK: No CVA tenderness or sacral edema. EXTREMITIES: No clubbing, cyanosis, edema. PSYCHIATRIC: Appropriate affect, pleasant mood. DIAGNOSTICS: Lab values are as follows: Hematology obtained on 03/29/2017: WBCs are 6.7, hemoglobin is 10.0, hematocrit is 32.3, platelet count is 297,000. Chemistry obtained on 03/29/2017: Sodium is 134, potassium 4.7, chloride is 98, carbon dioxide 31, BUN 15, creatinine is 0.76, glucose is 63, calcium is 8.1. IMPRESSION AND PLAN: 1. BACTERIAL PNEUMONIA. Have high suspicion for healthcare-associated given that the patient does live in a facility and has been compromised by chemotherapy. Will continue current antibiotics. The patient has had improvement. Will add Mucinex as well as pulmonary toilet and follow. 2. COPD EXACERBATION. The patient overall appears much improved. Will continue supplemental O2. 3. ACUTE ON CHRONIC HYPOXEMIC RESPIRATORY FAILURE SECONDARY TO THE ABOVE. The patient overall has much improved. 4. ATRIAL FIBRILLATION. The patient is currently rate controlled. Will continue the patient's Multaq and Cardizem and anticoagulation and follow. 5. DIABETES MELLITUS TYPE 2. Will continue the patient's basal medications as well as sliding scale coverage since the patient is taking p.o. 6. CORONARY ARTERY DISEASE. Will continue the patient's home medications. 7. HYPOTHYROIDISM. Will continue levothyroxine. 8. HISTORY OF LUNG CANCER. Management as per Dr. De La Cruz at [facility]. 9. OXYGEN DEPENDENCY. 10. STEROID DEPENDENCY. 11. DVT PROPHYLAXIS. The patient is on chronic anticoagulation for A-fib. 12. DO NOT RESUSCITATE. DISPOSITION: The patient is a DO NOT RESUSCITATE/DO NOT INTUBATE. Pending patient's symptomatology and diagnostic findings, will re-evaluate in the a.m. Time spent on this followup including assessment, plan, physical examination, patient education, and extensive review of long records at the bedside is 35 minutes. DICTATING PHYSICIAN: RACH ALEXANDRA NP [id number] PHY#: [id number] ID: [id number] JOB#: [id number] ACCT: [id number] cc: >
[2017-03-29] MEDS ORDERED: DILTIAZEM HCL 30 MG TABLET PO SCH (12:00)
[2017-03-29] MEDS: METHYLPREDNISOLONE INJ 125 MG/2 ML SDV IV SCH ×2 (13:45→21:59)
[2017-03-29] MEDS: LEVALBUTEROL HCL NEB 0.63 MG/3 ML AMPUL NEB PRN (15:47)
[2017-03-29] MEDS ORDERED: (PENDING PHARMACY ID) (Alprazolam [Alprazolam Odt] 1 TAB) PO PRN (16:20)
[2017-03-29] MEDS ORDERED: ALPRAZOLAM 0.25 MG TABLET PO PRN (16:23)
[2017-03-29] MEDS: DOCUSATE SODIUM 100 MG CAPSULE PO SCH (17:37)
[2017-03-29] MEDS ORDERED: FUROSEMIDE 20 MG TABLET PO ONE (18:00)
[2017-03-29] MEDS ORDERED: ASPART SQ SCH (18:00)
[2017-03-29] MEDS ORDERED: LEVOTHYROXINE SODIUM 0.05 MG TABLET PO ONE (18:00)
[2017-03-29] MEDS ORDERED: INSULIN ASPART PROTAM SQ SCH (18:00)
[2017-03-29] MEDS: FLUOXETINE HCL 20 MG CAPSULE PO SCH (21:57)
[2017-03-29] MEDS: MONTELUKAST SODIUM 10 MG TABLET PO SCH (21:57)
[2017-03-29] MEDS: ATORVASTATIN CALCIUM 40 MG TABLET PO SCH (21:57)
[2017-03-29] MEDS: DILTIAZEM HCL 30 MG TABLET PO SCH (21:58)
[2017-03-29] MEDS: DRONEDARONE HYDROCHLORIDE 400 MG TABLET PO SCH (22:00)
[2017-03-29] MEDS ORDERED: INSULIN LISPRO 100 UNIT/ML 3 ML VIAL SUBCUT ONE (22:45)
[2017-03-29] MEDS: VANCOMYCIN HCL 1,500 MG in DEXTROSE 5%-WATER 250 ML IV SCH (23:24)
[2017-03-30] MEDS: DILTIAZEM HCL 30 MG TABLET PO SCH ×3 (05:23→21:05)
[2017-03-30] MEDS: METHYLPREDNISOLONE INJ 125 MG/2 ML SDV IV SCH (05:24)
[2017-03-30] MEDS: LEVOFLOXACIN 750 MG/D5W RTU 750 MG/150 ML RTUPB IV SCH (05:24)
[2017-03-30] MEDS: LANSOPRAZOLE 30 MG TAB.RAP.DR PO SCH (05:24)
[2017-03-30] MEDS ORDERED: INSULIN ASPART PROTAM SQ SCH (08:00)
[2017-03-30] MEDS ORDERED: ASPART SQ SCH (08:00)
[2017-03-30] MEDS: INSULIN LISPRO 100 UNIT/ML 3 ML VIAL SUBCUT PRN ×4 (08:37→22:02)
[2017-03-30] MEDS: LEVOTHYROXINE SODIUM 0.05 MG TABLET PO SCH (08:39)
--- NOTE | 2017-03-30 09:08 | PROGRESS NOTE E ---
Progress Note NAME: JATINDER RODRIGUEZ : 1935 AGE: 82Y DATE: 03/30/2017 ROOM: 315 SUBJECTIVE: The patient is currently lying in bed. She states that she did not sleep very well last night, that she did become quite winded. The patient denies any nausea, vomiting or diarrhea. No dizziness or chest pain, no fever or chills. The patient admits to a strong cough but has been unable to produce any sputum. The patient has been afebrile and blood pressures have been in a good range. The patient does not voice any other concerns at this time. REVIEW OF SYSTEMS: Rest of review of systems negative. MEDICATIONS: Medications have been reviewed. OBJECTIVE: GENERAL: The patient is an 82-year-old female who is awake, alert, and oriented to person, place, time, and situation. She is verbal, conversational, and ambulatory and does not appear to be in any acute distress. VITAL SIGNS: Temperature is 97.7, pulse 84, respirations 18, blood pressure is 127/57, oxygen saturation is 100% on 2 L nasal cannula. SKIN: Warm and dry. No rash. Not diaphoretic. HEENT: Pupils equal, round, and reactive to light and accommodation. Conjunctivae pink. Sclerae are nonicteric. No JVP. CARDIOVASCULAR SYSTEM: Heart is regular. There is no murmur or rub. CHEST: Diminished throughout to auscultation, symmetrical, unlabored. ABDOMEN: Soft, nontender, nondistended. BACK: No CVA tenderness or sacral edema. EXTREMITIES: No clubbing, cyanosis, edema. PSYCHIATRIC: Appropriate affect, pleasant mood. DIAGNOSTICS: Lab values are as follows: Hematology obtained on 03/29/2017: WBCs are 6.7, hemoglobin is 10.0, hematocrit is 32.3, platelet count is 297,000. Chemistry obtained on 03/29/2017: Sodium is 134, potassium 4.7, chloride is 98, carbon dioxide 31, BUN 15, creatinine is 0.76, glucose is 263, calcium is 8.1. T4 is 1.82. Blood cultures obtained on 03/29/2017 revealed no growth. Urine cultures obtained on 03/29/2017 is pending. IMPRESSION AND PLAN: 1. BACTERIAL PNEUMONIA. Have high suspicion for healthcare-associated given that the patient's reoccurrence as well as living in a facility; however, the patient does have a history of lung malignancy and this may be a postobstructive process as well. The patient appears improved. Will continue Mucinex, pulmonary toilet, and repeat chest x-ray in the a.m. and follow. 2. COPD EXACERBATION. Overall much improved. Will continue supplemental O2. 3. ACUTE ON CHRONIC HYPOXEMIC RESPIRATORY FAILURE SECONDARY TO THE ABOVE. Overall the patient is much improved. 4. ATRIAL FIBRILLATION. The patient is rate controlled. Will continue Multaq, Cardizem and anticoagulation. 5. DIABETES MELLITUS TYPE 2. Will continue the patient's basal medications as well as sliding scale coverage. 6. CORONARY ARTERY DISEASE. Will continue the patient's home medications. 7. HYPOTHYROIDISM. Will continue levothyroxine. 8. HISTORY OF LUNG CANCER. Management as per Dr. De La Cruz at [facility]. 9. OXYGEN DEPENDENCY. 10. STEROID DEPENDENCY. 11. DVT PROPHYLAXIS. The patient is on chronic anticoagulation for a-fib. 12. DNR. DISPOSITION: The patient is a DNR/DNI. Pending patient's symptomatology and diagnostic findings, will re-evaluate in the a.m. Time spent on this followup including assessment, plan, physical examination, and patient education is 25 minutes. DICTATING PHYSICIAN: RACH ALEXANDRA NP [id number] PHY#: [id number] ID: [id number] JOB#: [id number] ACCT: [id number] cc: >
[2017-03-30] MEDS: LEVALBUTEROL HCL NEB 0.63 MG/3 ML AMPUL NEB PRN (09:12)
[2017-03-30] MEDS ORDERED: (PENDING PHARMACY ID) (Potassium Chloride [Potassium Chloride] 10 MEQ) PO SCH (10:00)
[2017-03-30] MEDS: INSULIN GLARGINE,HUM.REC.ANLOG 300 UNIT/3 ML INSULN.PEN SUBCUT SCH ×2 (12:07→22:04)
[2017-03-30] MEDS: PREDNISONE 20 MG TABLET PO SCH ×2 (12:13→17:16)
[2017-03-30] MEDS: DOCUSATE SODIUM 100 MG CAPSULE PO SCH ×2 (12:13→17:16)
[2017-03-30] MEDS: DRONEDARONE HYDROCHLORIDE 400 MG TABLET PO SCH ×2 (12:14→21:05)
[2017-03-30] MEDS: FUROSEMIDE 20 MG TABLET PO SCH (12:20)
[2017-03-30] MEDS: POTASSIUM CHLORIDE 10 MEQ TABLET.SA PO SCH (12:20)
[2017-03-30] MEDS: GUAIFENESIN 600 MG TABLET.SA PO SCH ×2 (12:21→21:05)
[2017-03-30] MEDS: CEFEPIME 2 GM/D5W RTU 50 ML IV SCH ×2 (12:24→21:06)
[2017-03-30] MEDS: ATORVASTATIN CALCIUM 40 MG TABLET PO SCH (21:05)
[2017-03-30] MEDS: FLUOXETINE HCL 20 MG CAPSULE PO SCH (21:05)
[2017-03-30] MEDS: MONTELUKAST SODIUM 10 MG TABLET PO SCH (21:05)
[2017-03-30] MEDS: VANCOMYCIN HCL 1,500 MG in DEXTROSE 5%-WATER 250 ML IV SCH (23:57)
[2017-03-31 04:47] LABS: HEMATOCRIT 29.3 % (36.0-47.0); HGB HCT DIFFERENCE -2.3; MEAN CORPUSCULAR HEMOGLOBIN 23.1 pg (27.0-33.4); MEAN CORPUSCULAR HGB CONC 30.9 g/dL (32.0-36.0); MEAN CORPUSCULAR VOLUME 75 fl (80-97); RED BLOOD COUNT 3.91 10^6/uL (3.72-5.28); WHITE BLOOD COUNT 13.3 10^3/uL (4.0-10.5)
[2017-03-31 05:01] LABS: ANION GAP 5 (5-19); BLOOD UREA NITROGEN 23 mg/dL (7-20); CALCIUM 7.9 mg/dL (8.4-10.2); CARBON DIOXIDE 30 mmol/L (22-30); CHLORIDE 99 mmol/L (98-107); CREATININE RESULT 0.91 mg/dL (0.52-1.25); GLUCOSE 256 mg/dL (75-110); POTASSIUM 4.1 mmol/L (3.6-5.0); SODIUM 134.4 mmol/L (137-145)
[2017-03-31] MEDS: LANSOPRAZOLE 30 MG TAB.RAP.DR PO SCH (05:05)
[2017-03-31] MEDS: DILTIAZEM HCL 30 MG TABLET PO SCH ×3 (05:06→21:22)
[2017-03-31] MEDS: LEVOFLOXACIN 750 MG/D5W RTU 750 MG/150 ML RTUPB IV SCH (05:06)
[2017-03-31] MEDS: LEVOTHYROXINE SODIUM 0.05 MG TABLET PO SCH (08:20)
[2017-03-31] MEDS: INSULIN LISPRO 100 UNIT/ML 3 ML VIAL SUBCUT PRN ×4 (08:21→21:31)
--- NOTE | 2017-03-31 09:27 | RADIOLOGY REPORT (SQ) ---
EXAM DESCRIPTION: CHEST PA/LAT COMPLETED DATE/TIME: 03/31/2017 9:18 am REASON FOR STUDY: FU PNA COMPARISON: 03/28/2017. TECHNIQUE: Frontal and lateral radiographic views of the chest acquired. NUMBER OF VIEWS: Two view. LIMITATIONS: None. FINDINGS: LUNGS AND PLEURA: Mild central vascular congestion. No significant pleural fluid. Some s uspected pleural thickening mid posterior, likely chronic. No progression in right basilar opacity. MEDIASTINUM AND HILAR STRUCTURES: Stable contours. HEART AND VASCULAR STRUCTURES: Cardiac enlargement. Stable appearance. BONES: No acute findings. HARDWARE: None in the chest. OTHER: No other significant finding. IMPRESSION: 1. Mild central vascular congestion. 2. No progressive pneumonia, further findings as above. TECHNICAL DOCUMENTATION: JOB ID: [id number] [employer]- All Rights Reserved
[2017-03-31] MEDS: PREDNISONE 20 MG TABLET PO SCH ×2 (09:32→18:05)
[2017-03-31] MEDS: DRONEDARONE HYDROCHLORIDE 400 MG TABLET PO SCH ×2 (09:34→21:23)
[2017-03-31] MEDS: GUAIFENESIN 600 MG TABLET.SA PO SCH ×2 (09:34→21:22)
[2017-03-31] MEDS: POTASSIUM CHLORIDE 10 MEQ TABLET.SA PO SCH (09:34)
[2017-03-31] MEDS: DOCUSATE SODIUM 100 MG CAPSULE PO SCH ×2 (09:34→18:05)
[2017-03-31] MEDS: FUROSEMIDE 20 MG TABLET PO SCH (09:35)
[2017-03-31] MEDS: INSULIN GLARGINE,HUM.REC.ANLOG 300 UNIT/3 ML INSULN.PEN SUBCUT SCH ×2 (09:35→18:02)
[2017-03-31] MEDS: CEFEPIME 2 GM/D5W RTU 50 ML IV SCH (09:36)
--- NOTE | 2017-03-31 11:38 | PROGRESS NOTE E ---
Progress Note NAME: JATINDER RODRIGUEZ : 1935 AGE: 82Y DATE: 03/31/2017 ROOM: 315 SUBJECTIVE: The patient is currently out of bed to the bedside chair. She states that she does feel better today. She denies any nausea, vomiting, or diarrhea. Her shortness of breath has improved. She does admit to a decent amount of sputum production. She has been afebrile. Blood pressure has been in a good range. The patient does not voice any other concerns at this time. REVIEW OF SYSTEMS: Rest of the review of systems negative. MEDICATIONS: Have been reviewed. OBJECTIVE: GENERAL: The patient is an 82-year-old female who is awake, alert, and oriented to person, place, time, and situation. She is verbal, conversational, and does not appear to be in acute distress. VITAL SIGNS: Temperature 98.0, pulse 71, respirations 20, blood pressure 104/52, oxygen saturation is 100% on 3 L nasal cannula. SKIN: Warm and dry. No rash. Not diaphoretic. HEENT: Pupils equal, round, reactive to light and accommodation. Conjunctivae are pink. No JVP. CARDIOVASCULAR: Heart is regular. There is no murmur or rub. CHEST: Diminished, symmetrical, bilateral basal crackles. ABDOMEN: Soft, nontender, nondistended. BACK: No CVA tenderness or sacral edema. EXTREMITIES: No clubbing, cyanosis, edema. PSYCHIATRIC: Appropriate affect. Pleasant mood. DIAGNOSTICS: Lab values are as follows: Hematology obtained on 03/31/2017: WBCs are 13.3, hemoglobin is 9.0, hematocrit is 29.3, platelet count is 307,000. Chemistry obtained on 03/31/2017: Sodium is 134, potassium 4.1, chloride is 99, carbon dioxide 30, BUN 23, creatinine is 0.91, glucose 256, calcium is 7.9. IMPRESSION AND PLAN: 1. BACTERIAL PNEUMONIA. Overall the patient's symptoms are much improved. Will transition to oral antibiotics. Continue Mucinex and pulmonary toilet and follow. 2. COPD EXACERBATION. Much improved. 3. [id number] HYPOXEMIC RESPIRATORY FAILURE SECONDARY TO THE ABOVE. Overall improved. 4. ATRIAL FIBRILLATION. The patient is rate controlled. Will continue Multaq, Cardizem, and anticoagulation. 5. DIABETES MELLITUS TYPE 2. Continue sliding scale coverage. Have added Lantus given that we do not carry her basal medications. 6. CORONARY ARTERY DISEASE. Will continue the patient's home meds. 7. HYPOTHYROIDISM. Will continue levothyroxine. 8. LUNG CANCER. Management as per Dr. De La Cruz at [facility]. 9. OXYGEN DEPENDENCY. 10. STEROID DEPENDENCY. 11. DVT PROPHYLAXIS. Will continue chronic anticoagulation for AFib. 12. DNR. DISPOSITION: The patient is DNR/DNI. Pending patient's symptomatology and diagnostic findings, will reevaluate in the a.m. for discharge. Time spent on this followup including assessment, plan, physical examination, patient education is 20 minutes. DICTATING PHYSICIAN: RACH ALEXANDRA NP [id number] PHY#: [id number] ID: [id number] JOB#: [id number] ACCT: [id number] cc: >
[2017-03-31] MEDS ORDERED: FUROSEMIDE INJ/PF 20 MG/2 ML SDV IV ONE (13:00)
[2017-03-31] MEDS ORDERED: ALPRAZOLAM 0.25 MG TABLET PO PRN (21:15)
[2017-03-31] MEDS: MONTELUKAST SODIUM 10 MG TABLET PO SCH (21:23)
[2017-03-31] MEDS: ATORVASTATIN CALCIUM 40 MG TABLET PO SCH (21:23)
[2017-03-31] MEDS: FLUOXETINE HCL 20 MG CAPSULE PO SCH (21:23)
[2017-03-31] MEDS: LEVALBUTEROL HCL NEB 0.63 MG/3 ML AMPUL NEB PRN (21:27)
[2017-03-31] MEDS: CEFPODOXIME 200 MG TABLET PO SCH (21:28)
--- NOTE | 2017-03-31 22:34 | RADIOLOGY REPORT (SQ) ---
EXAM DESCRIPTION: CHEST SINGLE VIEW COMPLETED DATE/TIME: 03/31/2017 10:24 pm REASON FOR STUDY: sob COMPARISON: 03/31/2017. EXAM PARAMETERS: NUMBER OF VIEWS: One view. TECHNIQUE: Single frontal radiographic view of the chest acquired. RADIATION DOSE: NA LIMITATIONS: None. FINDINGS: LUNGS AND PLEURA: Surgical changes on the left. No infiltrates, masses or pneumothorax. N o pleural effusion. MEDIASTINUM AND HILAR STRUCTURES: No masses. Contour normal. HEART AND VASCULAR STRUCTURES: Heart normal in size. Normal vasculature. BONES: No acute findings. HARDWARE: None in the chest. OTHER: No other significant finding. IMPRESSION: STABLE APPEARANCE OF THE CHEST. NO ACUTE FINDINGS. TECHNICAL DOCUMENTATION: JOB ID: [id number]
[2017-04-01] MEDS: DILTIAZEM HCL 30 MG TABLET PO SCH ×3 (07:05→22:05)
[2017-04-01] MEDS: LANSOPRAZOLE 30 MG TAB.RAP.DR PO SCH (07:05)
[2017-04-01] MEDS: INSULIN GLARGINE,HUM.REC.ANLOG 300 UNIT/3 ML INSULN.PEN SUBCUT SCH ×3 (07:06→22:06)
[2017-04-01] MEDS: INSULIN LISPRO 100 UNIT/ML 3 ML VIAL SUBCUT PRN ×3 (08:39→22:07)
[2017-04-01] MEDS: LEVOTHYROXINE SODIUM 0.05 MG TABLET PO SCH (08:40)
[2017-04-01] MEDS: GUAIFENESIN 600 MG TABLET.SA PO SCH ×2 (09:51→22:06)
[2017-04-01] MEDS: POTASSIUM CHLORIDE 10 MEQ TABLET.SA PO SCH (09:51)
[2017-04-01] MEDS: DRONEDARONE HYDROCHLORIDE 400 MG TABLET PO SCH ×2 (09:52→22:06)
[2017-04-01] MEDS: PREDNISONE 20 MG TABLET PO SCH ×2 (09:52→17:37)
[2017-04-01] MEDS: FUROSEMIDE 20 MG TABLET PO SCH (09:52)
[2017-04-01] MEDS: DOCUSATE SODIUM 100 MG CAPSULE PO SCH ×2 (09:53→17:37)
[2017-04-01] MEDS: CEFPODOXIME 200 MG TABLET PO SCH ×2 (09:53→22:05)
[2017-04-01] MEDS ORDERED: PREDNISONE 20 MG TABLET PO SCH (10:00)
--- NOTE | 2017-04-01 12:04 | PDOC TRANSFER SUMMARY ---
General - Admit/Disc Date/PCP Admission Date/Primary Care Provider: 03/29/17 04:49 [facility] Discharge Date: 04/02/17 - Discharge Diagnosis (1) COPD exacerbation Is this a current diagnosis for this admission?: Yes (2) LLL pneumonia Is this a current diagnosis for this admission?: Yes (3) Acute and chronic respiratory failure with hypoxia Is this a current diagnosis for this admission?: Yes (4) PAF (paroxysmal atrial fibrillation) Is this a current diagnosis for this admission?: Yes (5) Type 2 diabetes mellitus Is this a current diagnosis for this admission?: Yes (6) Hyponatremia Is this a current diagnosis for this admission?: Yes (7) Coronary artery disease Is this a current diagnosis for this admission?: Yes (8) UTI (urinary tract infection) Is this a current diagnosis for this admission?: Yes (9) Hypothyroidism Is this a current diagnosis for this admission?: Yes (10) Anticoagulated Is this a current diagnosis for this admission?: Yes (11) History of lung cancer Is this a current diagnosis for this admission?: Yes (12) Oxygen dependent Is this a current diagnosis for this admission?: Yes (13) Steroid dependent Is this a current diagnosis for this admission?: Yes (14) Do not resuscitate Is this a current diagnosis for this admission?: Yes - Additional Information Resuscitation Status: Do Not Resuscitate Discharge Diet: As Tolerated, Cardiac, Diabetic Discharge Activity: Activity As Tolerated, Balance Activity w/Rest Home Medications: Acetaminophen [Tylenol] 650 mg PO Q4HP PRN 03/29/17 Alprazolam [Alprazolam Odt] 1 tab PO BIDP PRN 03/29/17 Atorvastatin Calcium [Lipitor 40 mg Tablet] 40 mg PO QHS 03/29/17 Diltiazem HCl [Cardizem 30 mg Tablet] 30 mg PO Q8 03/29/17 Docusate Sodium [Colace 100 mg Capsule] 100 mg PO BID 03/29/17 Dronedarone Hydrochloride [Multaq 400 mg Tablet] 400 mg PO Q12 03/29/17 Ergocalciferol (Vitamin D2) [Vitamin D2] 50,000 unit PO MO@1000 03/29/17 Fluoxetine HCl [Prozac 20 mg Capsule] 20 mg PO QHS 03/29/17 Furosemide [Lasix] 20 mg PO DAILY 03/29/17 Insulin Aspart Protam & Aspart [Novolog Mix 70-30 Vial] 25 unit SQ QAM 03/29/17 Insulin Aspart Protam & Aspart [Novolog Mix 70-30 Vial] 50 unit SQ QPM 03/29/17 Insulin Aspart [Novolog Flexpen] 0 unit SUBCUT .SLD SCALE 03/29/17 Levothyroxine Sodium [Synthroid 0.05 mg Tablet] 50 mcg PO QAM 03/29/17 Melatonin/Pyridoxine HCl (B6) [Melatonin 1 mg Tablet] 1 each PO HSP PRN Montelukast Sodium [Singulair 10 mg Tablet] 10 mg PO QHS 03/29/17 Pantoprazole Sodium [Protonix] 40 mg PO QHS 03/29/17 Potassium Chloride 10 meq PO DAILY 03/29/17 Albuterol Sulfate [Ventolin 0.083% Neb 2.5 mg/3 mL Ampul] 1 vial NEB RTQ8HP PRN #0 04/01/17 Cefpodoxime Proxetil [Vantin 200 mg Tablet] 1 tab PO Q12 #14 tab 04/01/17 Guaifenesin [Mucinex Sr 600 mg Tablet.sa] 1,200 mg PO Q12 #12 tablet.sa Prednisone 20 mg PO DAILY #10 tablet 04/01/17 History of Present Illness Admission Date/PCP: 03/29/17 04:49 History of Present Illness: JATINDER RODRIGUEZ is a 82 year old female resident of [facility], steroid-dependent and 24/7 home O2 dependent COPD, status post chemoradiation therapy but no surgery for lung cancer, along with underlying diastolic congestive heart failure, coronary artery disease, type 2 diabetes mellitus, hyperlipidemia, hypothyroidism, and atrial fibrillation, on Eliquis for same, who presents to the emergency room for evaluation of approximately 24 hour history of difficulty breathing weakness and difficulty breathing. She describes progressive weakness, along with gradual worsening of her chronic shortness of breath, in particular with much of any exertion. Increasing productive cough. Nausea but no vomiting. Denies abdominal or chest pain, fever or chills. No diarrhea or dysuria. Hospitalized on our service December 06- of this year, with discharge diagnoses including atrial fibrillation with rapid ventricular response, pneumonia involving the left lung, urinary tract infection, and COPD exacerbation. Hospital Course Hospital Course: The patient was admitted to [facility]. The patient was placed on scheduled nebs as well as PRN nebs, steroids, expectorants, supplemental O2, flutter valve, spirometry, and supplemental oxygen. The patient's oxygen, steroids, and nebs were titrated and weaned. The patient is back to baseline and able to complete sentences. Repeat chest x-ray was suggestive improvement. The patient was transitioned back to baseline oxygen. Since admission the patient has not had any fevers chills, abdominal pain, nausea, vomiting, diarrhea. Patient's pneumonia most likely is postobstructive in origin given that this is the involved lung from the lung cancer. Has had reoccurrences of this pneumonia which have required hospitalization a number of times. No recurrence of the pneumonia the patient underwent a swallow evaluation which the completed without issue. I have educated the patient that she will most definitely have chronic dyspnea given her lung cancer and sputum production. 03/28/17 03/28/17 03/28/17 23:15 23:15 23:15 WBC 10.7 H VBG pH 7.44 H Sodium 132.5 L Physical Exam Vital Signs: Temp Pulse Resp BP Pulse Ox 98.6 F 80 22 H 119/56 L 96 04/01/17 11:35 04/01/17 11:35 04/01/17 11:35 04/01/17 07:34 04/01/17 11:35 Intake & Output 03/30/17 03/31/17 04/01/17 23:59 23:59 23:59 Intake Total 2956 838 238 Output Total 300 Balance 2656 838 238 Weight 70.7 kg 71.3 kg 73.5 kg General appearance: PRESENT: no acute distress, cooperative, well-developed, well-nourished Head exam: PRESENT: atraumatic, normocephalic Eye exam: PRESENT: conjunctiva pink, EOMI, PERRLA. ABSENT: scleral icterus Ear exam: PRESENT: normal external ear exam Mouth exam: PRESENT: moist, tongue midline Neck exam: ABSENT: carotid bruit, JVD, lymphadenopathy, thyromegaly Respiratory exam: PRESENT: rhonchi - LLL, symmetrical, unlabored. ABSENT: rales , tachypnea, wheezes Cardiovascular exam: PRESENT: RRR. ABSENT: diastolic murmur, rubs, systolic murmur Pulses: PRESENT: normal dorsalis pedis pul Vascular exam: PRESENT: normal capillary refill GI/Abdominal exam: PRESENT: normal bowel sounds, soft. ABSENT: distended, guarding, mass, organolmegaly, rebound, tenderness Rectal exam: PRESENT: deferred Extremities exam: PRESENT: full ROM. ABSENT: calf tenderness, clubbing, pedal edema Neurological exam: PRESENT: alert, awake, oriented to person, oriented to place , oriented to time, oriented to situation, CN II-XII grossly intact. ABSENT: motor sensory deficit Psychiatric exam: PRESENT: appropriate affect, normal mood. ABSENT: homicidal ideation, suicidal ideation Skin exam: PRESENT: dry, intact, warm. ABSENT: cyanosis, rash Results Laboratory Results: Labs- Last Values WBC 13.3 10^3/uL (4.0-10.5) H 03/31/17 04:14 RBC 3.91 10^6/uL (3.72-5.28) 03/31/17 04:14 Hgb 9.0 g/dL (12.0-15.5) L 03/31/17 04:14 Hct 29.3 % (36.0-47.0) L 03/31/17 04:14 MCV 75 fl (80-97) L 03/31/17 04:14 MCH 23.1 pg (27.0-33.4) L 03/31/17 04:14 MCHC 30.9 g/dL (32.0-36.0) L 03/31/17 04:14 RDW 22.0 % (11.5-14.0) H 03/31/17 04:14 Plt Count 307 10^3/uL (150-450) 03/31/17 04:14 Seg Neutrophils % 91.2 % (42-78) H 03/29/17 07:02 Lymphocytes % 7.0 % (13-45) L 03/29/17 07:02 Monocytes % 1.5 % (3-13) L 03/29/17 07:02 Eosinophils % 0.0 % (0-6) 03/29/17 07:02 Basophils % 0.3 % (0-2) 03/29/17 07:02 Absolute Neutrophils 6.1 10^3/uL (1.7-8.2) 03/29/17 07:02 Absolute Lymphocytes 0.5 10^3/uL (0.5-4.7) 03/29/17 07:02 Absolute Monocytes 0.1 10^3/uL (0.1-1.4) 03/29/17 07:02 Absolute Eosinophils 0.0 10^3/uL (0.0-0.6) 03/29/17 07:02 Absolute Basophils 0.0 10^3/uL (0.0-0.2) 03/29/17 07:02 VBG pH 7.44 (7.30-7.42) H 03/28/17 23:15 VBG pCO2 45.3 mmHg (35-63) 03/28/17 23:15 VBG HCO3 30.1 mmol/L (20-32) 03/28/17 23:15 VBG Base Excess 5.3 mmol/L 03/28/17 23:15 Sodium 134.4 mmol/L (137-145) L 03/31/17 04:14 Potassium 4.1 mmol/L (3.6-5.0) 03/31/17 04:14 Chloride 99 mmol/L (98-107) 03/31/17 04:14 Carbon Dioxide 30 mmol/L (22-30) 03/31/17 04:14 Anion Gap 5 (5-19) 03/31/17 04:14 BUN 23 mg/dL (7-20) H 03/31/17 04:14 Creatinine 0.91 mg/dL (0.52-1.25) 03/31/17 04:14 Est GFR ( Amer) > 60 (>60) 03/31/17 04:14 Est GFR (Non-Af Amer) 59 (>60) L 03/31/17 04:14 Glucose 256 mg/dL (75-110) H 03/31/17 04:14 POC Glucose 210 mg/dL (70-110) H 04/01/17 06:04 Lactic Acid 1.3 mmol/L (0.7-2.1) 03/29/17 00:43 Calcium 7.9 mg/dL (8.4-10.2) L 03/31/17 04:14 Magnesium 1.8 mg/dL (1.6-2.3) 03/28/17 23:15 Total Bilirubin 0.7 mg/dL (0.2-1.3) 03/28/17 23:15 Direct Bilirubin 0.3 mg/dL (0.0-0.4) 03/28/17 23:15 Indirect Bilirubin Not Reportable 03/28/17 23:15 Neonat Total Bilirubin Not Reportable 03/28/17 23:15 AST 18 U/L (14-36) 03/28/17 23:15 ALT 32 U/L (9-52) 03/28/17 23:15 Alkaline Phosphatase 130 U/L (38-126) H 03/28/17 23:15 Creatine Kinase < 20 U/L (30-135) L 03/28/17 23:15 Troponin I 0.021 ng/mL 03/28/17 23:15 NT-Pro-B Natriuret Pep 526 pg/mL (<450) H 03/28/17 23:15 Total Protein 5.1 g/dL (6.3-8.2) L 03/28/17 23:15 Albumin 2.4 g/dL (3.5-5.0) L 03/28/17 23:15 Lipase 70.9 U/L (23-300) 03/28/17 23:15 TSH 0.42 uIU/mL (0.47-4.68) L 03/29/17 07:02 Free T4 1.82 ng/dL (0.78-2.19) 03/29/17 07:02 Urine Color YELLOW 03/29/17 02:32 Urine Appearance SLIGHTLY-CLOUDY 03/29/17 02:32 Urine pH 5.0 (5.0-9.0) 03/29/17 02:32 Ur Specific [place] 1.025 03/29/17 02:32 Urine Protein NEGATIVE mg/dL (NEGATIVE) 03/29/17 02:32 Urine Glucose (UA) 150 mg/dL (NEGATIVE) H 03/29/17 02:32 Urine Ketones NEGATIVE mg/dL (NEGATIVE) 03/29/17 02:32 Urine Blood NEGATIVE (NEGATIVE) 03/29/17 02:32 Urine Nitrite NEGATIVE (NEGATIVE) 03/29/17 02:32 Urine Bilirubin NEGATIVE (NEGATIVE) 03/29/17 02:32 Urine Urobilinogen NEGATIVE mg/dL (<2.0) 03/29/17 02:32 Ur Leukocyte Esterase TRACE (NEGATIVE) H 03/29/17 02:32 Urine WBC (Auto) 15 /HPF 03/29/17 02:32 Urine RBC (Auto) 1 /HPF 03/29/17 02:32 Urine Bacteria (Auto) TRACE /HPF 03/29/17 02:32 Squamous Epi Cells Auto 2 /HPF 03/29/17 02:32 Urine Mucus (Auto) RARE /LPF 03/29/17 02:32 Urine Ascorbic Acid NEGATIVE (NEGATIVE) 03/29/17 02:32 Time Trough Drawn 2344 03/30/17 23:44 Vancomycin Trough 10.6 ug/mL (5.0-20.0) 03/30/17 23:44 Impressions: Head CT 03/28/17 22:09 IMPRESSION: CHRONIC CHANGES OF ATROPHY AND MICROVASCULAR ISCHEMIA. NO ACUTE PROCESS. KUB X-Ray 03/28/17 22:09 IMPRESSION: NO RADIOGRAPHIC EVIDENCE FOR ACUTE ABDOMINAL DISEASE. Chest X-Ray 03/31/17 06:00 IMPRESSION: 1. Mild central vascular congestion. 2. No progressive pneumonia , further findings as above. Transfer Plan - Disposition Transfer Plan: The patient is to followup with their primary care provider within one week for hospital followup regarding pneumonia. Chronic steroids and prednisone taper as per primary provider - Time Spent with Patient Time spent with patient: Greater than 30 Minutes Qualifiers PATEINT BEING DISCHARGED WITH ANY OF THE FOLLOWING DIAGNOSIS?: No
--- NOTE | 2017-04-01 17:34 | PROGRESS NOTE E ---
Progress Note NAME: JATINDER RODRIGUEZ : 1935 AGE: 82Y DATE: 04/01/2017 ROOM: 315 SUBJECTIVE: The patient is currently out of bed to the bedside chair. She states that she feels a little better today. She was actually hoping to go home. The patient denies any nausea, vomiting, diarrhea. No shortness of breath, dizziness, chest pain. No fevers, chills. The patient has been afebrile. Blood pressure has been in a good range. The patient did get a little winded overnight but responded nicely to a breathing treatment. The patient does not voice any other concerns at this time. REVIEW OF SYSTEMS: The rest of the review of systems is negative. MEDICATIONS: Medications have been reviewed. OBJECTIVE: GENERAL: The patient is an 82-year-old female who is awake, alert and oriented to person, place, time, and situation. She is verbal, conversational, does not appear to be in any acute distress. VITAL SIGNS: As follows: Temperature is 98.6, pulse 80, respirations 15, blood pressure is 119/56, oxygen saturation 96% on room air. SKIN: Warm and dry. No rash. Not diaphoretic. HEENT: Pupils equal, round, reactive to light and accommodation. Conjunctiva is pink. NECK: No JVP. CARDIOVASCULAR SYSTEM: Heart is regular. There is no murmur or rub. CHEST: Diminished. Rhonchorous breath sounds are noted over the left lung field, but this is pretty chronic for her. Symmetrical. Unlabored. ABDOMEN: Soft, nontender, nondistended. BACK: No CVA tenderness, sacral edema. EXTREMITIES: No clubbing, cyanosis, edema. PSYCHIATRIC: Appropriate affect. Pleasant mood. DIAGNOSTICS: Lab values are as follows: Hematology obtained on 03/31/2017; WBCs are 13.3, hemoglobin is 9.0, hematocrit is 29.3, platelet count is 307,000. Chemistry obtained on 03/31/2017: Sodium is 134, potassium 4.1, chloride is 99, carbon dioxide is 30, BUN 23, creatinine is 0.91, glucose 210, and calcium is 7.9. IMPRESSION AND PLAN: 1. RECURRENT BACTERIAL PNEUMONIA, MOST LIKELY POSTOBSTRUCTIVE. Given the patient has had reoccurrence in this area and due to her lung CA, the patient has tolerated the transition to oral antibiotics. Will continue Mucinex and pulmonary toilet. 2. COPD EXACERBATION. Much improved. 3. ACUTE ON CHRONIC HYPOXEMIC RESPIRATORY FAILURE SECONDARY TO THE ABOVE. Overall improved. 4. ATRIAL FIBRILLATION. The patient is rate controlled. Will continue Multaq, Cardizem, and anticoagulation. 5. DIABETES MELLITUS TYPE 2. Will continue sliding scale coverage. Lantus is being given in the place of her regular basal insulin. 6. CORONARY ARTERY DISEASE. Will continue the patient's home medications. 7. HYPOTHYROIDISM. Will continue levothyroxine. 8. LUNG CANCER. The patient is followed by Dr. De La Cruz at [facility]. 9. DVT PROPHYLAXIS. Will continue chronic anticoagulation for atrial fibrillation. 10. OXYGEN DEPENDENCY. 11. STEROID DEPENDENCY. 12. DNR. DISPOSITION: The patient is a DNR/DNI. Pending patient's symptomatology and diagnostic findings, the patient can be transferred back to facility in the a.m. The patient can be downgraded to a medical bed. Time spent on this followup including assessment, plan, physical examination, and patient education is 20 minutes. DICTATING PHYSICIAN: RACH ALEXANDRA NP [id number] PHY#: [id number] ID: [id number] JOB#: [id number] ACCT: [id number] cc:RACH ALEXANDRA NP >
[2017-04-01] MEDS: ATORVASTATIN CALCIUM 40 MG TABLET PO SCH (22:05)
[2017-04-01] MEDS: FLUOXETINE HCL 20 MG CAPSULE PO SCH (22:06)
[2017-04-01] MEDS: MONTELUKAST SODIUM 10 MG TABLET PO SCH (22:06)
[2017-04-01] MEDS: LEVALBUTEROL HCL NEB 0.63 MG/3 ML AMPUL NEB PRN (22:35)
[2017-04-02] MEDS: LANSOPRAZOLE 30 MG TAB.RAP.DR PO SCH (05:11)
[2017-04-02] MEDS: DILTIAZEM HCL 30 MG TABLET PO SCH (05:11)
[2017-04-02] MEDS: INSULIN LISPRO 100 UNIT/ML 3 ML VIAL SUBCUT PRN ×2 (07:45→11:54)
[2017-04-02] MEDS: LEVOTHYROXINE SODIUM 0.05 MG TABLET PO SCH (07:45)
[2017-04-02 08:49] VITALS: BP 103/45
[2017-04-02] MEDS: FUROSEMIDE 20 MG TABLET PO SCH (09:53)
[2017-04-02] MEDS: POTASSIUM CHLORIDE 10 MEQ TABLET.SA PO SCH (09:53)
[2017-04-02] MEDS: CEFPODOXIME 200 MG TABLET PO SCH (09:53)
[2017-04-02] MEDS: DRONEDARONE HYDROCHLORIDE 400 MG TABLET PO SCH (09:53)
[2017-04-02] MEDS: PREDNISONE 20 MG TABLET PO SCH (09:53)
[2017-04-02] MEDS: GUAIFENESIN 600 MG TABLET.SA PO SCH (09:54)
[2017-04-02] MEDS: INSULIN GLARGINE,HUM.REC.ANLOG 300 UNIT/3 ML INSULN.PEN SUBCUT SCH (09:55)
[2017-04-02] MEDS: DOCUSATE SODIUM 100 MG CAPSULE PO SCH (09:55)
[2017-04-02] MEDS ORDERED: ERGOCALCIFEROL (VITAMIN D2) 50000 UNIT (1.25 MG) CAPSULE PO SCH (10:00)
== END 2017-04-02 12:19 | disposition home health service (06) | DRG 190 ==
LOC: ER 21:59 → EH 03-29 02:13 → UNDOADMIN 03-29 02:13 → 3W 03-29 03:47 → EH 03-29 03:47 → 3W 03-29 04:49 → EH 03-29 04:49
PROVIDERS: ADMIT Family Medicine; ATTEND Family Medicine
DX: J44.0 Chronic obstructive pulmonary disease with (acute) lower respiratory infection (principal); J96.21 Acute and chronic respiratory failure with hypoxia; J15.9 Unspecified bacterial pneumonia; C34.90 Malignant neoplasm of unspecified part of unspecified bronchus or lung; I50.32 Chronic diastolic (congestive) heart failure; E87.1 Hypo-osmolality and hyponatremia; N39.0 Urinary tract infection, site not specified; Z66 Do not resuscitate; J44.1 Chronic obstructive pulmonary disease with (acute) exacerbation; I11.0 Hypertensive heart disease with heart failure; E11.65 Type 2 diabetes mellitus with hyperglycemia; E78.5 Hyperlipidemia, unspecified; E03.9 Hypothyroidism, unspecified; I48.2 Chronic atrial fibrillation; I25.10 Atherosclerotic heart disease of native coronary artery without angina pectoris; Z79.01 Long term (current) use of anticoagulants; Z99.81 Dependence on supplemental oxygen; Z79.4 Long term (current) use of insulin; Z79.51 Long term (current) use of inhaled steroids; Z79.899 Other long term (current) drug therapy; Z87.891 Personal history of nicotine dependence
CPT/HCPCS: 36415; 70450; 71010; 71020; 74000; 80048; 80053; 80202; 81001; 82550; 82803; 82962; 83605; 83690; 83735; 83880; 84439; 84443; 84484; 85025; 85027; 87040; 87086; 93005; 93010; 94640; 94667; 94668; 94799; 96365; 96375; 99285; G8978-GP; G8979-GP; G8996-GN; G8997-GN; G8998-GN; J0692; J1815; J1940; J1956; J2543; J2765; J2930; J3370; J3490; J7060; J7512; J7614; J7620

== ENCOUNTER 2017-05-06 16:11 | Observation (INO) | payer MEDICARE, MEDICAID, OTHER ==
[2017-05-06] MEDS ORDERED: ACETAMINOPHEN 325 MG TABLET PO ONE (16:42)
[2017-05-06 17:09] LABS: ABSOLUTE LYMPHOCYTES (AUTO) 1.4 10^3/uL (0.5-4.7); ABSOLUTE MONOCYTES (AUTO) 0.7 10^3/uL (0.1-1.4); ABSOLUTE NEUT (AUTO) 5.9 10^3/uL (1.7-8.2); BASOPHILS % (AUTO) 0.5 % (0-2); EOSINOPHILS % (AUTO) 0.2 % (0-6); HEMATOCRIT 33.6 % (36.0-47.0); HEMOGLOBIN 10.7 g/dL (12.0-15.5); HGB HCT DIFFERENCE -1.5; LYMPHOCYTES % (AUTO) 17.1 % (13-45); MEAN CORPUSCULAR HEMOGLOBIN 23.2 pg (27.0-33.4); MEAN CORPUSCULAR HGB CONC 31.9 g/dL (32.0-36.0); MEAN CORPUSCULAR VOLUME 73 fl (80-97); MONOCYTES % (AUTO) 8.8 % (3-13); RED BLOOD COUNT 4.61 10^6/uL (3.72-5.28); SEGMENTED NEUTROPHILS % (AUTO) 73.4 % (42-78)
[2017-05-06 17:22] LABS: ALANINE AMINOTRANSFERASE 25 U/L (9-52); ALBUMIN 3.4 g/dL (3.5-5.0); ALKALINE PHOSPHATASE 109 U/L (38-126); ANION GAP 6 (5-19); ASPARTATE AMINO TRANSFERASE 13 U/L (14-36); BILIRUBIN,DIRECT 0.3 mg/dL (0.0-0.4); BILIRUBIN,TOTAL 0.6 mg/dL (0.2-1.3); BLOOD UREA NITROGEN 15 mg/dL (7-20); CALCIUM 9.3 mg/dL (8.4-10.2); CARBON DIOXIDE 31 mmol/L (22-30); CHLORIDE 98 mmol/L (98-107); CREATININE RESULT 1.12 mg/dL (0.52-1.25); GLUCOSE 335 mg/dL (75-110); POTASSIUM 4.2 mmol/L (3.6-5.0); SODIUM 135.4 mmol/L (137-145); TOTAL PROTEIN 5.7 g/dL (6.3-8.2)
--- NOTE | 2017-05-06 17:22 | RADIOLOGY REPORT (SQ) ---
EXAM DESCRIPTION: CHEST SINGLE VIEW COMPLETED DATE/TIME: 05/06/2017 5:10 pm REASON FOR STUDY: chest pain COMPARISON: 03/31/2017 EXAM PARAMETERS: NUMBER OF VIEWS: One view. TECHNIQUE: Single frontal radiographic view of the chest acquired. RADIATION DOSE: NA LIMITATIONS: None. FINDINGS: LUNGS AND PLEURA: No opacities, masses or pneumothorax. No pleural effusion. MEDIASTINUM AND HILAR STRUCTURES: No masses. Contour normal. HEART AND VASCULAR STRUCTURES: The configuration of the heart and mediastinal structures is unchanged . BONES: No acute findings. HARDWARE: None in the chest. OTHER: No other significant finding. IMPRESSION: NO ACUTE RADIOGRAPHIC FINDING IN THE CHEST. TECHNICAL DOCUMENTATION: JOB ID: [id number]
--- NOTE | 2017-05-06 17:27 | RADIOLOGY REPORT (SQ) ---
EXAM DESCRIPTION: CT THORACIC SPINE WITHOUT COMPLETED DATE/TIME: 05/06/2017 5:14 pm REASON FOR STUDY: acute back pain h/o lunmg cancer COMPARISON: None. TECHNIQUE: Axial images acquired through the thoracic spine without intravenous contrast. Images re viewed with lung, soft tissue and bone windows. Reconstructed coronal and sagittal MPR images review ed. Images stored on PACS. All CT scanners at this facility use dose modulation, iterative reconstruction, and/or weight based d osing when appropriate to reduce radiation dose to as low as reasonably achievable (ALARA). [facility]: Dose Right [facility]: CareDose [facility]: Dose Right [facility]: Teradose 4D [facility]: Smart RightScale RADIATION DOSE: Up-to-date CT equipment and radiation dose reduction techniques were employed. CTDIv ol: 18.9 mGy. DLP: 505 mGy-cm. mGy. LIMITATIONS: None. FINDINGS: VISUALIZED LUNGS: No acute opacities. No pneumothorax. SOFT TISSUES: No soft tissue swelling. No masses. VERTEBRAL BODIES: There is mild compression of 1 of the lower thoracic vertebra which is age indeterm inate. No other vertebral compressions are identified DISCS: No significant disc space narrowing. ALIGNMENT: Normal. TRANSVERSE PROCESSES, POSTERIOR ELEMENTS: No fractures. No dislocation. No acute findings. HARDWARE: None in the spine. VISUALIZED RIBS: No fractures. OTHER: No other significant finding. IMPRESSION: Mild compression of 1 of the lower thoracic vertebra which is age indeterminate. No oth er vertebral compressions are identified. Other findings as noted above TECHNICAL DOCUMENTATION: JOB ID: [id number] Quality ID # [id number]: Final reports with documentation of one or more dose reduction techniques (e.g., Au tomated exposure control, adjustment of the mA and/or kV according to patient size, use of iterative reconstruction technique) 2010 [employer]- All Rights Reserved
--- NOTE | 2017-05-06 17:34 | RADIOLOGY REPORT (SQ) ---
EXAM DESCRIPTION: CT LUMBAR SPINE WITHOUT COMPLETED DATE/TIME: 05/06/2017 5:14 pm REASON FOR STUDY: acute back pain h/o lunmg cancer COMPARISON: None. TECHNIQUE: Axial images acquired through the lumbar spine without intravenous contrast. Images revi ewed with lung, soft tissue and bone windows. Reconstructed coronal and sagittal MPR images reviewed . All images stored on PACS. All CT scanners at this facility use dose modulation, iterative reconstruction, and/or weight based d osing when appropriate to reduce radiation dose to as low as reasonably achievable (ALARA). [facility]: Dose Right [facility]: CareDose [facility]: Dose Right [facility]: Teradose 4D [facility]: Smart [employer] RADIATION DOSE: mGy. LIMITATIONS: None. FINDINGS: SEGMENTATION: Normal. No transitional anatomy. ALIGNMENT: Normal. VERTEBRAL BODIES: There is approximately 75% compression of the L2 vertebra. There is approximately 25% compression of the L1 vertebra. There is mild compression of the superior endplate of the L5 héctor tebra. These are all age indeterminate. No other vertebral compressions are identified. DISCS: No significant protrusions. Study limited by lack of intrathecal contrast. PEDICLES, TRANSVERSE PROCESSES: No fractures. No dislocation. No acute findings. FACETS, POSTERIOR ELEMENTS: No fractures. No dislocation. No spinal stenosis. HARDWARE: None in the spine. VISUALIZED RIBS: No fractures. SOFT TISSUES: No significant or acute finding in adjacent soft tissues. OTHER: No other significant finding. IMPRESSION: Multiple vertebral compressions as noted above which are age indeterminate. Other findi ngs as noted above. TECHNICAL DOCUMENTATION: JOB ID: [id number] Quality ID # [id number]: Final reports with documentation of one or more dose reduction techniques (e.g., Au tomated exposure control, adjustment of the mA and/or kV according to patient size, use of iterative reconstruction technique) 2010 [employer]- All Rights Reserved
[2017-05-06 18:44] LABS: APPEARANCE,URINE CLEAR; BILIRUBIN,URINE NEGATIVE (NEGATIVE); GLUCOSE, URINE >=500 mg/dL (NEGATIVE); KETONES,URINE NEGATIVE (NEGATIVE); LEUKOCYTE ESTERASE,URINE NEGATIVE (NEGATIVE); NITRITE,URINE NEGATIVE (NEGATIVE); PROTEIN,URINE NEGATIVE (NEGATIVE); URINE SPECIFIC GRAVITY 1.013; UROBILINOGEN,URINE NEGATIVE mg/dL (<2.0)
[2017-05-06] MEDS ORDERED: MORPHINE SULFATE 10 MG/ML INJ IV ONE (19:12)
[2017-05-06] MEDS ORDERED: CEFTRIAXONE 1 GM/D5W RTU 1 GM/50 ML RTUPB IV ONE (19:58)
[2017-05-06] MEDS ORDERED: ALBUTEROL SULFATE 0.083% NEB 2.5 MG/3 ML AMPUL NEB PRN (20:03)
--- NOTE | 2017-05-06 20:03 | ER Document Report ---
ED General - General Chief Complaint: Low Back Pain Stated Complaint: BACK PAIN Time Seen by Provider: 05/06/17 16:26 Mode of Arrival: Ambulatory Information source: Patient Notes: This is an 82-year-old female with COPD (2 L), lung cancer (status post chemotherapy and radiation, remission 4 years), diabetes. Patient is brought in from [facility] because of significant low back pain and inability to ambulate. Patient has been complaining of pain in the last 3 days. She denies any fall. She has had a very difficult time moving in bed. She denies any bowel or bladder dysfunction. TRAVEL OUTSIDE OF THE [place] IN LAST 30 DAYS: No - HPI Onset: Just prior to arrival Onset/Duration: Sudden Quality of pain: Dull Severity: Moderate Pain Level: 4 Associated symptoms: denies: Chest pain, Chills, Fever, Shortness of breath Exacerbated by: Movement Relieved by: Remaining still Similar symptoms previously: No Recently seen / treated by doctor: No - Related Data Allergies/Adverse Reactions: No Known Allergies Allergy (Unverified 10/16/15 06:35) Home Medications: Current Home Medications Insulin Aspart [Novolog Flexpen] 6 unit SUBCUT AC 05/06/17 [History] Insulin Glargine,Hum.rec.anlog [Lantus] 30 units SQ HSP PRN 05/06/17 [History] Prednisone 5 mg PO DAILY MDD for 14 days 04/23/17 then 1/2 ta 05/06/17 [History] Past Medical History - General Information source: Patient - Social History Smoking Status: Never Smoker Cigarette use (# per day): No Chew tobacco use (# tins/day): No Frequency of alcohol use: None Drug Abuse: None Lives with: Family Family History: Reviewed & Not Pertinent, Malignancy Patient has suicidal ideation: No Patient has homicidal ideation: No - Past Medical History Cardiac Medical History: Reports: Hx Congestive Heart Failure, Hx Coronary Artery Disease, Hx Hypercholesterolemia, Hx Hypertension Denies: Hx DVT, Hx Pulmonary Embolism Pulmonary Medical History: Reports: Hx COPD Denies: Hx Asthma, Hx Sleep Apnea Neurological Medical History: Denies: Hx Seizures Endocrine Medical History: Reports: Hx Diabetes Mellitus Type 2, Hx Hypothyroidism. Denies: Hx Hyperthyroidism Renal/ Medical History: Denies: Hx Peritoneal Dialysis Malignancy Medical History: Reports: Hx Lung Cancer GI Medical History: Denies: Hx Cirrhosis, Hx Gastroesophageal Reflux Disease, Hx Hepatitis Psychiatric Medical History: Denies: Hx Depression Infectious Medical History: Denies: Hx C-Diff, Hx Hepatitis, Hx MRSA Past Surgical History: Reports: Hx Appendectomy, Hx Hysterectomy - Immunizations Hx Diphtheria, Pertussis, Tetanus Vaccination: Yes Review of Systems - Review of Systems Constitutional: denies: Chills, Fever EENT: No symptoms reported Cardiovascular: No symptoms reported Respiratory: No symptoms reported Gastrointestinal: No symptoms reported Genitourinary: No symptoms reported Female Genitourinary: No symptoms reported Musculoskeletal: See HPI Skin: No symptoms reported Hematologic/Lymphatic: No symptoms reported Neurological/Psychological: No symptoms reported Physical Exam - Vital signs Vitals: Temp Pulse Resp BP Pulse Ox 98.2 F 81 18 102/64 97 05/06/17 16:14 05/06/17 16:14 05/06/17 16:14 05/06/17 16:14 05/06/17 16:14 Notes: Physical exam: GENERAL: 82-year-old female, alert and oriented 3, no acute distress. Patient is very uncomfortable however when trying to move in bed. HEAD: Atraumatic, normocephalic. EYES: Pupils equal round and reactive to light, extraocular movements intact, sclera anicteric, conjunctiva are normal. ENT: TMs normal, nares patent, oropharynx clear without exudates. Moist mucous membranes. NECK: Normal range of motion, supple without lymphadenopathy or JVD. LUNGS: Breath sounds clear to auscultation bilaterally and equal. No wheezes rales or rhonchi. HEART: Regular rate and rhythm without murmurs, rubs or gallops. ABDOMEN: Soft, normoactive bowel sounds. No tenderness to palpation. No guarding, no rebound. No masses appreciated. Back: Patient has significant midline tenderness to the lumbar spine. There is no bony crepitus EXTREMITIES: Normal range of motion, no pitting or edema. No clubbing or cyanosis. NEUROLOGICAL: Cranial nerves II through XII grossly intact. Normal speech, patient cannot ambulate due to pain. She is moving all extremities. She does not have any numbness to the lower extremities. She denies any bowel or bladder dysfunction. PSYCH: Normal mood, normal affect. SKIN: Warm, Dry, normal turgor, no rashes or lesions noted. Course - Re-evaluation Re-evalutation: 05/07/17 00:20 I discussed the findings on the lumbar CT with Dr Quiles of pain management regarding the possibility of an evaluation for kyphoplasty. She is happy to see the patient in consult. The patient has significant pain and will need to be admitted for intractable back pain due to vertebral compression fracture which is acute. Incidentally, she does have a UTI which. The plan will be for pain control, physical therapy, antibiotics and consultation for possible kyphoplasty. I have discussed this with the patient as well as her [id number] ([id number]) . - Vital Signs Vital signs: Temp Pulse Resp BP Pulse Ox 97.7 F 62 19 137/60 H 100 05/06/17 22:01 05/06/17 22:01 05/06/17 22:01 05/06/17 22:01 05/06/17 22:01 - Laboratory Result Diagrams: 05/06/17 16:49 05/06/17 16:49 Laboratory results interpreted by me: 05/06/17 05/06/17 05/06/17 16:49 16:49 18:27 Hgb 10.7 L Hct 33.6 L MCV 73 L MCH 23.2 L MCHC 31.9 L RDW 21.0 H Sodium 135.4 L Carbon Dioxide 31 H Est GFR ( Amer) 56 L Est GFR (Non-Af Amer) 47 L Glucose 335 H AST 13 L Total Protein 5.7 L Albumin 3.4 L Urine Glucose (UA) >=500 H - Diagnostic Test Radiology reviewed: Image reviewed, Reports reviewed - CT of the lumbar spine shows 75% compression of L2. Critical Care Note - Critical Care Note Total time excluding time spent on procedures (mins): 60 Discharge - Discharge Clinical Impression: Acute L2 vertebral fracture, Intractable back pain, UTI Condition: Stable Disposition: ADMITTED INPATIENT Admitting Provider: Hospitalist - Dr. Dorsey Unit Admitted: Medical Floor
[2017-05-06] MEDS ORDERED: DEXTROSE 40% GEL 15 GM TUBE PO PRN ×2 (20:04)
[2017-05-06] MEDS ORDERED: MELATONIN PO PRN (20:04)
[2017-05-06] MEDS ORDERED: DEXTROSE 50%-WATER 25 GM/50 ML DISP.SYRIN IV PRN ×2 (20:04)
[2017-05-06] MEDS ORDERED: MAG HYDROX/AL HYDROX/SIMETH SUSP 30 ML UDCUP PO PRN (20:04)
[2017-05-06] MEDS ORDERED: PYRIDOXINE HCL PO PRN (20:04)
[2017-05-06] MEDS ORDERED: GLUCAGON,HUMAN RECOMB 1 MG INJ IM PRN (20:04)
[2017-05-06] MEDS ORDERED: MORPHINE SULFATE 10 MG/ML INJ IV PRN (20:08)
[2017-05-06] MEDS: FLUOXETINE HCL 20 MG CAPSULE PO SCH (22:46)
[2017-05-06] MEDS: LANSOPRAZOLE 30 MG TAB.RAP.DR PO SCH (22:46)
[2017-05-06] MEDS: DILTIAZEM HCL 30 MG TABLET PO SCH (22:46)
[2017-05-06] MEDS: ATORVASTATIN CALCIUM 40 MG TABLET PO SCH (22:46)
[2017-05-06] MEDS: KETOROLAC TROMETHAMINE INJ/PF 30 MG/1 ML SDV IV PRN (22:47)
[2017-05-06] MEDS: MONTELUKAST SODIUM 10 MG TABLET PO SCH (22:47)
[2017-05-06] MEDS: HEPARIN SOD (PORCINE) 5,000 UNIT/ML 1 ML SYRINGE SUBCUT SCH (22:47)
[2017-05-06] MEDS: DRONEDARONE HYDROCHLORIDE 400 MG TABLET PO SCH (23:21)
--- NOTE | 2017-05-07 01:15 | PDOC H&P ---
History of Present Illness Admission Date/PCP: 05/06/17 20:30 KD CISNEROS PA-C Patient complains of: Back pain History of Present Illness: JATINDER RODRIGUEZ is a 82 year old female who is a resident of assisted living with a past medical history of oxygen and steroid-dependent COPD, status post chemoradiation for lung cancer remotely, diastolic heart failure, coronary artery disease, type 2 diabetes, dyslipidemia, hypothyroidism, and atrial fibrillation without anticoagulation. She been her usual state of health until approximately a week ago awakening with mid low back pain which is worsened by movement and reduced by immobility. She has been unable to ambulate without exceptional pain prompting her to seek evaluation emergency room where she is found to have a low thoracic compression fracture requiring IV morphine for pain control and referred to the hospitalist for admission. Patient denies previous episode of back pain she denies recent changes in medications. Notable risk factors for osteoporosis though without vitamin D, calcium or bisphosphonate on reconciliation. Past Medical History Cardiac Medical History: Reports: Congestive Heart Failure, Coronary Artery Disease, Hyperlipidema, Hypertension Denies: DVT, Pulmonary Embolism Pulmonary Medical History: Reports: Chronic Obstructive Pulmonary Disease (COPD) Denies: Asthma, Sleep Apnea Neurological Medical History: Denies: Seizures Endocrine Medical History: Reports: Diabetes Mellitus Type 2, Hypothyroidism Denies: Hyperthyroidism Malignancy Medical History: Reports: Lung Cancer GI Medical History: Denies: Cirrhosis, Gastroesophageal Reflux Disease, Hepatitis Psychiatric Medical History: Denies: Depression Infectious Medical History: Denies: Clostridium Difficile, Methicillin-Resistant Staph Aureus Past Surgical History Past Surgical History: Reports: Appendectomy, Hysterectomy Social History Lives with: Family Smoking Status: Never Smoker Last Time Smoked: 2009 Frequency of Alcohol Use: None Hx Recreational Drug Use: No Drugs: None Hx Prescription Drug Abuse: No - Advance Directive Resuscitation Status: Do Not Resuscitate Family History Family History: Reviewed & Not Pertinent, Malignancy Parental Family History Reviewed: Yes Children Family History Reviewed: Yes Sibling(s) Family History Reviewed.: Yes Medication/Allergy Home Medications: Acetaminophen [Tylenol] 650 mg PO Q4HP PRN 03/29/17 Alprazolam [Alprazolam Odt] 1 tab PO BIDP PRN 03/29/17 Atorvastatin Calcium [Lipitor 40 mg Tablet] 40 mg PO QHS 03/29/17 Docusate Sodium [Colace 100 mg Capsule] 100 mg PO BID 03/29/17 Dronedarone Hydrochloride [Multaq 400 mg Tablet] 400 mg PO Q12 03/29/17 Ergocalciferol (Vitamin D2) [Vitamin D2] 50,000 unit PO MO@1000 03/29/17 Fluoxetine HCl [Prozac 20 mg Capsule] 20 mg PO QHS 03/29/17 Furosemide [Lasix] 20 mg PO DAILY 03/29/17 Levothyroxine Sodium [Synthroid 0.05 mg Tablet] 50 mcg PO QAM 03/29/17 Melatonin/Pyridoxine HCl (B6) [Melatonin 1 mg Tablet] 1 each PO HSP PRN Montelukast Sodium [Singulair 10 mg Tablet] 10 mg PO QHS 03/29/17 Pantoprazole Sodium [Protonix] 40 mg PO QHS 03/29/17 Potassium Chloride 10 meq PO DAILY 03/29/17 Insulin Aspart [Novolog Flexpen] 6 unit SUBCUT AC 05/06/17 Insulin Glargine,Hum.rec.anlog [Lantus] 30 units SQ HSP PRN 05/06/17 Prednisone 5 mg PO DAILY MDD for 14 days 04/23/17 then 1/2 ta 05/06/17 Allergies/Adverse Reactions: No Known Allergies Allergy (Unverified 10/16/15 06:35) Review of Systems Constitutional: ABSENT: chills, fever(s), headache(s), weight gain, weight loss Eyes: ABSENT: visual disturbances Ears: ABSENT: hearing changes Cardiovascular: ABSENT: chest pain, dyspnea on exertion, edema, orthropnea, palpitations Respiratory: ABSENT: cough, hemoptysis Gastrointestinal: ABSENT: abdominal pain, constipation, diarrhea, hematemesis, hematochezia, nausea, vomiting Genitourinary: ABSENT: dysuria, hematuria Musculoskeletal: ABSENT: joint swelling Integumentary: ABSENT: rash, wounds Neurological: ABSENT: abnormal gait, abnormal speech, confusion, dizziness, focal weakness, syncope Psychiatric: ABSENT: anxiety, depression, homidical ideation, suicidal ideation Endocrine: ABSENT: cold intolerance, heat intolerance, polydipsia, polyuria Hematologic/Lymphatic: ABSENT: easy bleeding, easy bruising Physical Exam Vital Signs: Temp Pulse Resp BP Pulse Ox 97.7 F 62 19 137/60 H 100 05/06/17 22:01 05/06/17 22:01 05/06/17 22:01 05/06/17 22:01 05/06/17 22:01 Intake & Output 05/05/17 05/06/17 05/07/17 11:59 11:59 11:59 Weight 70.3 kg General appearance: PRESENT: cooperative, mild distress, well-developed, well- nourished Head exam: PRESENT: atraumatic, normocephalic Eye exam: PRESENT: conjunctiva pink, EOMI, PERRLA. ABSENT: scleral icterus Ear exam: PRESENT: normal external ear exam Mouth exam: PRESENT: moist, tongue midline Neck exam: ABSENT: carotid bruit, JVD, lymphadenopathy, thyromegaly Respiratory exam: PRESENT: clear to auscultation yaya. ABSENT: rales, rhonchi, wheezes Cardiovascular exam: PRESENT: RRR. ABSENT: diastolic murmur, rubs, systolic murmur Pulses: PRESENT: normal dorsalis pedis pul Vascular exam: PRESENT: normal capillary refill GI/Abdominal exam: PRESENT: normal bowel sounds, soft. ABSENT: distended, guarding, mass, organolmegaly, rebound, tenderness Rectal exam: PRESENT: deferred Extremities exam: PRESENT: full ROM. ABSENT: calf tenderness, clubbing, pedal edema Musculoskeletal exam: PRESENT: other - Pain to compression of lower thoracic vertebra and paraspinal musculature. Neurological exam: PRESENT: alert, awake, oriented to person, oriented to place , oriented to time, oriented to situation, CN II-XII grossly intact. ABSENT: motor sensory deficit Psychiatric exam: PRESENT: appropriate affect, normal mood. ABSENT: homicidal ideation, suicidal ideation Skin exam: PRESENT: dry, intact, warm. ABSENT: cyanosis, rash Results Impressions: Chest X-Ray 05/06/17 16:39 IMPRESSION: NO ACUTE RADIOGRAPHIC FINDING IN THE CHEST. Lumbar Spine CT 05/06/17 16:39 IMPRESSION: Multiple vertebral compressions as noted above which are age indeterminate. Other findings as noted above. Thoracic Spine CT 05/06/17 16:39 IMPRESSION: Mild compression of 1 of the lower thoracic vertebra which is age indeterminate. No other vertebral compressions are identified. Other findings as noted above Assessment & Plan - Diagnosis (1) Intractable back pain Is this a current diagnosis for this admission?: Yes Plan: Secondary to spontaneous fracture no evidence for pathology or lytic lesion. Will consult pain management and consideration of kyphoplasty otherwise symptomatic management, calcitonin, vitamin D and calcium. Consider bisphosphonate (2) Osteoporosis Is this a current diagnosis for this admission?: Yes Plan: History of chemoradiation and prednisone dependent COPD. Empiric initiation of vitamin D, calcium and consider bisphosphonate. (3) Vertebral fracture Is this a current diagnosis for this admission?: Yes Plan: Pain management consultation please see above - Time Time Spent: 30 to 50 Minutes - Inpatient Certification Medical Necessity: Need Close Monitoring Due to Risk of Patient Decompensation
[2017-05-07] MEDS ORDERED: CALCITONIN,SALMON,SYNTHETIC 400 UNIT/2 ML VIAL IM SCH ×2 (02:00)
[2017-05-07] MEDS: HEPARIN SOD (PORCINE) 5,000 UNIT/ML 1 ML SYRINGE SUBCUT SCH ×3 (06:36→23:04)
[2017-05-07] MEDS: DILTIAZEM HCL 30 MG TABLET PO SCH ×2 (06:36→15:09)
[2017-05-07 06:47] LABS: ABSOLUTE EOSINOPHILS # (AUTO) 0.1 10^3/uL (0.0-0.6); ABSOLUTE LYMPHOCYTES (AUTO) 1.2 10^3/uL (0.5-4.7); ABSOLUTE MONOCYTES (AUTO) 0.9 10^3/uL (0.1-1.4); BASOPHILS % (AUTO) 0.5 % (0-2); EOSINOPHILS % (AUTO) 1.1 % (0-6); HEMATOCRIT 31.4 % (36.0-47.0); HEMOGLOBIN 10.1 g/dL (12.0-15.5); HGB HCT DIFFERENCE -1.1; LYMPHOCYTES % (AUTO) 17.3 % (13-45); MEAN CORPUSCULAR HEMOGLOBIN 23.2 pg (27.0-33.4); MEAN CORPUSCULAR HGB CONC 32.1 g/dL (32.0-36.0); MEAN CORPUSCULAR VOLUME 72 fl (80-97); MONOCYTES % (AUTO) 12.4 % (3-13); RED BLOOD COUNT 4.36 10^6/uL (3.72-5.28); RED CELL DISTRIBUTION WIDTH 20.8 % (11.5-14.0); SEGMENTED NEUTROPHILS % (AUTO) 68.7 % (42-78); WHITE BLOOD COUNT 7.2 10^3/uL (4.0-10.5)
[2017-05-07 07:04] LABS: ANION GAP 5 (5-19); BLOOD UREA NITROGEN 17 mg/dL (7-20); CALCIUM 9.1 mg/dL (8.4-10.2); CARBON DIOXIDE 32 mmol/L (22-30); CHLORIDE 100 mmol/L (98-107); CREATININE RESULT 0.91 mg/dL (0.52-1.25); GLUCOSE 201 mg/dL (75-110); POTASSIUM 3.8 mmol/L (3.6-5.0); SODIUM 137.3 mmol/L (137-145)
[2017-05-07] MEDS ORDERED: INSULIN GLARGINE,HUM.REC.ANLOG 1,000 UNIT/10 ML UNIT SUBCUT PRN (07:33)
[2017-05-07] MEDS: IPRATROPIUM/ALBUTEROL 0.5-2.5 MG/3 ML AMPUL NEB SCH ×2 (07:58→19:33)
[2017-05-07] MEDS ORDERED: INSULIN ASPART PROTAM SQ SCH ×2 (08:00→18:00)
[2017-05-07] MEDS ORDERED: (PENDING PHARMACY ID) (Insulin Aspart [Novolog Flexpen] 6 UNIT) SUBCUT SCH (08:00)
[2017-05-07] MEDS ORDERED: ASPART SQ SCH ×2 (08:00→18:00)
[2017-05-07] MEDS: INSULIN LISPRO 100 UNIT/ML 3 ML VIAL SUBCUT SCH ×3 (08:49→17:18)
[2017-05-07] MEDS: LEVOTHYROXINE SODIUM 0.05 MG TABLET PO SCH (08:49)
[2017-05-07] MEDS: KETOROLAC TROMETHAMINE INJ/PF 30 MG/1 ML SDV IV PRN ×2 (08:50→23:07)
[2017-05-07] MEDS ORDERED: MORPHINE SULFATE 10 MG/ML INJ IV PRN (09:00)
[2017-05-07] MEDS: CALCIUM CARBONATE 250 MG/VITAMIN D3 125 UNIT TABLET PO SCH (09:04)
[2017-05-07] MEDS: DOCUSATE SODIUM 100 MG CAPSULE PO SCH ×2 (09:05→17:20)
[2017-05-07] MEDS: PREDNISONE 20 MG TABLET PO SCH (09:05)
[2017-05-07] MEDS: POTASSIUM CHLORIDE 10 MEQ TABLET.SA PO SCH (09:05)
[2017-05-07] MEDS: FUROSEMIDE 20 MG TABLET PO SCH (09:05)
--- NOTE | 2017-05-07 09:06 | PDOC PROGRESS REPORT ---
Subjective Progress Note for:: 05/07/17 Subjective:: Patient is seen on morning rounds. She is sitting in bed eating breakfast. She denies any shortness of breath, dyspnea or cough. She denies any chest pain, palpitations or dizziness. She denies any nausea, vomiting or abdominal pain. She is complaining of moderate mid to low back pain. She states the pain medicine is helping. We discussed referral to pain management to see if she would be a candidate for kyphoplasty. Physical Exam Vital Signs: Temp Pulse Resp BP Pulse Ox 97.5 F 63 18 113/58 L 93 05/06/17 23:12 05/07/17 07:58 05/07/17 07:58 05/06/17 23:12 05/07/17 07:58 Intake & Output 05/06/17 05/07/17 05/08/17 06:59 06:59 06:59 Intake Total 120 Output Total 0 Balance 120 Weight 70.3 kg General appearance: PRESENT: no acute distress, well-developed, well-nourished Head exam: PRESENT: atraumatic, normocephalic Eye exam: PRESENT: conjunctiva pink, EOMI, PERRLA. ABSENT: scleral icterus Ear exam: PRESENT: normal external ear exam Mouth exam: PRESENT: moist, tongue midline Neck exam: ABSENT: carotid bruit, JVD, lymphadenopathy, thyromegaly Respiratory exam: PRESENT: clear to auscultation yaya, decreased breath sounds, symmetrical, unlabored. ABSENT: rales, rhonchi, wheezes Cardiovascular exam: PRESENT: RRR. ABSENT: diastolic murmur, rubs, systolic murmur Pulses: PRESENT: normal carotid pulses, normal radial pulses Vascular exam: PRESENT: normal capillary refill GI/Abdominal exam: PRESENT: normal bowel sounds, soft. ABSENT: distended, guarding, mass, organolmegaly, rebound, tenderness Rectal exam: PRESENT: deferred Extremities exam: PRESENT: full ROM. ABSENT: calf tenderness, clubbing, pedal edema Musculoskeletal exam: PRESENT: full ROM, normal inspection - mid to low back to palpation, tenderness Neurological exam: PRESENT: alert, awake, oriented to person, oriented to place , oriented to time, oriented to situation, CN II-XII grossly intact. ABSENT: motor sensory deficit Psychiatric exam: PRESENT: appropriate affect, normal mood. ABSENT: homicidal ideation, suicidal ideation Skin exam: PRESENT: dry, intact, warm. ABSENT: cyanosis, rash Results Laboratory Results: 05/07/17 05:36 05/07/17 05:36 05/07/17 05/07/17 05:36 05:36 WBC 7.2 RBC 4.36 Hgb 10.1 L Hct 31.4 L MCV 72 L MCH 23.2 L MCHC 32.1 RDW 20.8 H Plt Count 261 Seg Neutrophils % 68.7 Lymphocytes % 17.3 Monocytes % 12.4 Eosinophils % 1.1 Basophils % 0.5 Absolute Neutrophils 5.0 Absolute Lymphocytes 1.2 Absolute Monocytes 0.9 Absolute Eosinophils 0.1 Absolute Basophils 0.0 Sodium 137.3 Potassium 3.8 Chloride 100 Carbon Dioxide 32 H Anion Gap 5 BUN 17 Creatinine 0.91 Est GFR ( Amer) > 60 Est GFR (Non-Af Amer) 59 L Glucose 201 H Calcium 9.1 Impressions: Chest X-Ray 05/06/17 16:39 IMPRESSION: NO ACUTE RADIOGRAPHIC FINDING IN THE CHEST. Lumbar Spine CT 05/06/17 16:39 IMPRESSION: Multiple vertebral compressions as noted above which are age indeterminate. Other findings as noted above. Thoracic Spine CT 05/06/17 16:39 IMPRESSION: Mild compression of 1 of the lower thoracic vertebra which is age indeterminate. No other vertebral compressions are identified. Other findings as noted above Assessment & Plan - Diagnosis (1) Intractable back pain Is this a current diagnosis for this admission?: Yes Plan: Patient found to have multiple compression fractures lumbar spine and 1 thoracic. She admits to multiple fall, the last being a week ago prior to when her severe pain began. She has history of osteoporosis and is on prednisone daily for her COPD. Pain management has been consulted for consideration of a kyphoplasty. Prn analgesics ordered and helping for now. 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 Qualified Code(s): E11.9 - Type 2 diabetes mellitus without complications Plan: Continue insulin and sliding scale coverage (6) Hypothyroidism Qualifiers: Hypothyroidism type: unspecified Qualified Code(s): E03.9 - Hypothyroidism , unspecified Is this a current diagnosis for this admission?: Yes Plan: Continue levoxyl (7) Oxygen dependent Is this a current diagnosis for this admission?: Yes Plan: Patient states she has been on continuous oxygen for the last 4 years (8) Steroid dependent Is this a current diagnosis for this admission?: Yes (9) Do not resuscitate Is this a current diagnosis for this admission?: Yes - Time Time Spent with patient: 25-34 minutes Critical Time spent with patient: 15-24 minutes Medications reviewed and adjusted accordingly: Yes Anticipated discharge: Other - Assisted living
[2017-05-07] MEDS ORDERED: PREDNISONE 5 MG TABLET PO SCH (10:00)
[2017-05-07] MEDS ORDERED: ERGOCALCIFEROL (VITAMIN D2) 50000 UNIT (1.25 MG) CAPSULE PO SCH (10:00)
[2017-05-07] MEDS: INSULIN LISPRO 100 UNIT/ML 3 ML VIAL SUBCUT PRN ×2 (12:02→17:18)
[2017-05-07] MEDS: DRONEDARONE HYDROCHLORIDE 400 MG TABLET PO SCH ×2 (12:03→23:07)
[2017-05-07] MEDS: ACETAMINOPHEN 325 MG TABLET PO PRN (12:03)
[2017-05-07] MEDS ORDERED: ONDANSETRON HCL INJ/PF 4 MG/2 ML SDV IV PRN (14:10)
[2017-05-07] MEDS ORDERED: ONDANSETRON HCL INJ/PF 4 MG/2 ML SDV IV ONE (15:00)
[2017-05-07] MEDS: ALPRAZOLAM 0.25 MG TABLET PO PRN (15:09)
[2017-05-07] MEDS ORDERED: BISACODYL 10 MG SUPP.RECT PR ONE (15:10)
[2017-05-07] MEDS ORDERED: CEFTRIAXONE 1 GM/D5W RTU 1 GM/50 ML RTUPB IV SCH (18:00)
[2017-05-07] MEDS ORDERED: INSULIN GLARGINE,HUM.REC.ANLOG 300 UNIT/3 ML INSULN.PEN SUBCUT SCH (22:00)
[2017-05-07] MEDS: FLUOXETINE HCL 20 MG CAPSULE PO SCH (23:04)
[2017-05-07] MEDS: MONTELUKAST SODIUM 10 MG TABLET PO SCH (23:05)
[2017-05-07] MEDS: LANSOPRAZOLE 30 MG TAB.RAP.DR PO SCH (23:05)
[2017-05-07] MEDS: ATORVASTATIN CALCIUM 40 MG TABLET PO SCH (23:06)
[2017-05-07] MEDS: SENNOSIDES/DOCUSATE 8.6-50 MG 1 EACH TABLET PO SCH (23:06)
[2017-05-08] MEDS: DILTIAZEM HCL 30 MG TABLET PO SCH ×3 (04:31→13:53)
[2017-05-08] MEDS: HEPARIN SOD (PORCINE) 5,000 UNIT/ML 1 ML SYRINGE SUBCUT SCH ×3 (05:55→22:17)
[2017-05-08] MEDS: IPRATROPIUM/ALBUTEROL 0.5-2.5 MG/3 ML AMPUL NEB SCH ×2 (08:04→20:20)
[2017-05-08] MEDS: INSULIN LISPRO 100 UNIT/ML 3 ML VIAL SUBCUT SCH ×3 (08:49→18:54)
[2017-05-08] MEDS: LEVOTHYROXINE SODIUM 0.05 MG TABLET PO SCH (08:49)
[2017-05-08] MEDS: INSULIN LISPRO 100 UNIT/ML 3 ML VIAL SUBCUT PRN ×3 (08:50→18:55)
[2017-05-08] MEDS: ACETAMINOPHEN 325 MG TABLET PO PRN (09:54)
[2017-05-08] MEDS: DRONEDARONE HYDROCHLORIDE 400 MG TABLET PO SCH ×2 (09:54→22:16)
[2017-05-08] MEDS: POTASSIUM CHLORIDE 10 MEQ TABLET.SA PO SCH (09:55)
[2017-05-08] MEDS: FUROSEMIDE 20 MG TABLET PO SCH (09:56)
[2017-05-08] MEDS: PREDNISONE 20 MG TABLET PO SCH (09:56)
[2017-05-08] MEDS: DOCUSATE SODIUM 100 MG CAPSULE PO SCH ×2 (09:56→17:02)
[2017-05-08] MEDS: CALCIUM CARBONATE 250 MG/VITAMIN D3 125 UNIT TABLET PO SCH (09:56)
[2017-05-08] MEDS: KETOROLAC TROMETHAMINE INJ/PF 30 MG/1 ML SDV IV PRN ×2 (09:57→16:22)
--- NOTE | 2017-05-08 11:25 | Physician Advisory Note ---
Physician Advisor ProgressNote .: Pursuant to the plan for Roly Gar, I have reviewed the medical record for this patient. Physician Advisor Statement: Please consider documenting, if you agree: 1. "Chronic Hypoxemic Respiratory Failure" [has chr O2 & steroid dependent COPD] 2. "Chronic diastolic CHF" 3. "Acute hyponatremia, likely due to ____" 4. Status - see below, consider change to Obs. Status: Acute comp fx is typically an Outpt or Outpt Obs dx, changing to Inpt if needing frequent IV opioid or some other clinical issue that requires ongoing hospital level care (besides waiting for kyphoplasty, which is often an outpt issue). Discussed with today's attending r.e. status. He agrees. Thanks! CK
--- NOTE | 2017-05-08 13:08 | PDOC PROGRESS REPORT ---
Subjective Progress Note for:: 05/08/17 Subjective:: Pt states that she is having pain 04/26. Pt states that she is doing ok otherwise. Spoke to Dr. Singh who states that pt is wanting to speak to son about Kyphoplasty. Physical Exam Vital Signs: Temp Pulse Resp BP Pulse Ox 97.8 F 66 16 116/41 L 98 05/08/17 07:30 05/08/17 08:04 05/08/17 08:04 05/08/17 07:30 05/08/17 08:04 Intake & Output 05/07/17 05/08/17 05/09/17 06:59 06:59 06:59 Intake Total 120 890 Output Total 0 500 Balance 120 390 Weight 70.3 kg 69 kg General appearance: PRESENT: mild distress, well-developed, well-nourished Head exam: PRESENT: atraumatic, normocephalic Eye exam: PRESENT: conjunctiva pink, EOMI, PERRLA. ABSENT: scleral icterus Ear exam: PRESENT: normal external ear exam Mouth exam: PRESENT: moist, tongue midline Neck exam: ABSENT: carotid bruit, JVD, lymphadenopathy, thyromegaly Respiratory exam: PRESENT: clear to auscultation yaya. ABSENT: rales, rhonchi, wheezes Cardiovascular exam: PRESENT: RRR. ABSENT: diastolic murmur, rubs, systolic murmur Pulses: PRESENT: normal dorsalis pedis pul GI/Abdominal exam: PRESENT: normal bowel sounds, soft. ABSENT: distended, guarding, mass, organolmegaly, rebound, tenderness Rectal exam: PRESENT: deferred Extremities exam: PRESENT: full ROM. ABSENT: calf tenderness, clubbing, pedal edema Neurological exam: PRESENT: alert, awake, oriented to person, oriented to place , oriented to time, oriented to situation. ABSENT: motor sensory deficit Psychiatric exam: PRESENT: appropriate affect, normal mood. ABSENT: homicidal ideation, suicidal ideation Skin exam: PRESENT: dry, warm Results Laboratory Results: 05/07/17 05:36 05/07/17 05:36 Impressions: Chest X-Ray 05/06/17 16:39 IMPRESSION: NO ACUTE RADIOGRAPHIC FINDING IN THE CHEST. Lumbar Spine CT 05/06/17 16:39 IMPRESSION: Multiple vertebral compressions as noted above which are age indeterminate. Other findings as noted above. Thoracic Spine CT 05/06/17 16:39 IMPRESSION: Mild compression of 1 of the lower thoracic vertebra which is age indeterminate. No other vertebral compressions are identified. Other findings as noted above Assessment & Plan - Diagnosis (1) Intractable back pain Is this a current diagnosis for this admission?: Yes Plan: Will continue Hydrocodone/Acetam 7.5/325mg Q6 hours PRN and Morphine. Pt's pain is not well controlled. Ortho waiting to speak with Son due to patient wanting to talk with son about procedure. (2) Vertebral fracture Qualifiers: Encounter type: initial encounter Lumbar vertebra fracture level: L5 Fracture type: closed Is this a current diagnosis for this admission?: Yes (3) COPD exacerbation Plan: Resolved. Will continue to monitor. (4) Hyponatremia Is this a current diagnosis for this admission?: Yes Plan: Secondary to Hyperglycemia: Resolved. Will continue to monitor. (5) PAF (paroxysmal atrial fibrillation) Is this a current diagnosis for this admission?: Yes Plan: Will continue current medications. (6) UTI (urinary tract infection) Qualifiers: Urinary tract infection type: acute cystitis Is this a current diagnosis for this admission?: Yes Plan: with Klebsiella and Citrobacter: Will place on Levaquin. - Time Time Spent with patient: Less than 15 minutes
[2017-05-08] MEDS: HYDROCODONE/ACETAMINOPHEN 7.5-325 MG TABLET PO PRN (14:00)
[2017-05-08] MEDS: ALPRAZOLAM 0.25 MG TABLET PO PRN (16:19)
--- NOTE | 2017-05-08 19:49 | RADIOLOGY REPORT (SQ) ---
EXAM DESCRIPTION: MRI LUMBAR SPINE WITHOUT COMPLETED DATE/TIME: 05/08/2017 6:47 pm REASON FOR STUDY: ACUTE COMPRESSION FX COMPARISON: CT lumbar spine dated 05/06/2017 TECHNIQUE: Sagittal and Axial imaging includes T1, T2, STIR and gradient echo sequences. Coronal T2/ HASTE imaging. LIMITATIONS: None. FINDINGS: VISUALIZED UPPER ABDOMEN: Limited evaluation. No acute or suspicious findings suggested. SEGMENTATION: No transitional anatomy. The lowest well-developed disc space is labeled L5-S1. ALIGNMENT: Anatomic. VERTEBRAE: There compression deformities at L5-L2 and L1. These are all chronic. No significant ret ropulsion. BONE MARROW: There is abnormal marrow signal at T11. This demonstrates decreased signal intensity on T1 weighted sequences and high signal intensity on T2. There is no loss of height. Please refer to MRI the thoracic spine for further discussion. DISC SIGNAL: There is multilevel spondylosis with loss of normal disc signal. POSTERIOR ELEMENTS: Generally intact. No pars defect evident. HARDWARE: None in the spine. CORD AND CONUS: Normal in size and signal intensity. Conus at the appropriate level. SOFT TISSUES: No aortic aneurysm seen. No bulky retroperitoneal adenopathy or mass. No paraspinal mas s or fluid. L1-L2: There is effacement anterior thecal sac secondary to annular bulge. No high-grade central juan nosis or foraminal narrowing. L2-L3: There is annular disc bulging. No nerve root impingement or central stenosis. L3-L4: There is annular disc bulging. No high-grade central stenosis or nerve root impingement. The re is facet arthropathy. L4-L5: There is mild annular bulging. No nerve root impingement or central stenosis. There is mild facet arthropathy. L5-S1: No significant spinal stenosis or exit foraminal stenosis. LOWER THORACIC: Incompletely imaged. No stenosis seen. SACRUM: Visualized upper sacrum intact. OTHER: No other significant findings. IMPRESSION: 1. Multiple chronic compression deformities. This is most marked at L2 with there is a pproximately 50% loss of height. There is no high-grade stenosis or nerve root impingement. 2. Abnormal marrow signal in the body of T11. Please refer to the MRI of the thoracic spine report for further discussion. TECHNICAL DOCUMENTATION: JOB ID: [id number]- All Rights Reserved
--- NOTE | 2017-05-08 21:18 | RADIOLOGY REPORT (SQ) ---
EXAM DESCRIPTION: MRI THORACIC SPINE WITHOUT COMPLETED DATE/TIME: 05/08/2017 6:47 pm REASON FOR STUDY: ACUTE COMPRESSION FX COMPARISON: CT thoracic spine dated 05/06/2017 TECHNIQUE: Sagittal and Axial imaging includes T1, T2, STIR and gradient echo sequences. LIMITATIONS: None. FINDINGS: LOCALIZER: No worrisome findings. ALIGNMENT: Normal. VERTEBRAE: There is a chronic compression fracture of T12 and L1. BONE MARROW: There is abnormal marrow signal at T11. This may represent edema although marrow replac ement cannot be excluded. If kyphoplasties plan biopsy is recommended at the same time. There is no significant loss of height at T11. HARDWARE: None in the spine. CORD: Normal in size and signal intensity. SOFT TISSUES: No soft tissue masses. THORACIC DISCS T1-T12: No significant spinal stenosis or exit foraminal stenosis. LOWER CERVICAL: Incompletely imaged. No significant spinal stenosis or exit foraminal stenosis. UPPER LUMBAR: Incompletely imaged. No significant spinal stenosis or exit foraminal stenosis. OTHER: There is left lower lobe atelectasis or pneumonia. Probable small effusion. IMPRESSION: Abnormal marrow signal at T11. This may represent impending compression fracture. Saira ow replacement cannot be excluded. There chronic compression fractures at T12 and L1 with loss of le ss than 20% of height. TECHNICAL DOCUMENTATION: JOB ID: [id number] [employer]- All Rights Reserved
[2017-05-08] MEDS ORDERED: INSULIN GLARGINE,HUM.REC.ANLOG 300 UNIT/3 ML INSULN.PEN SUBCUT SCH (22:00)
[2017-05-08] MEDS: SENNOSIDES/DOCUSATE 8.6-50 MG 1 EACH TABLET PO SCH (22:16)
[2017-05-08] MEDS: FLUOXETINE HCL 20 MG CAPSULE PO SCH (22:16)
[2017-05-08] MEDS: ATORVASTATIN CALCIUM 40 MG TABLET PO SCH (22:16)
[2017-05-08] MEDS: LANSOPRAZOLE 30 MG TAB.RAP.DR PO SCH (22:16)
[2017-05-08] MEDS: MONTELUKAST SODIUM 10 MG TABLET PO SCH (22:16)
[2017-05-09] MEDS: DILTIAZEM HCL 30 MG TABLET PO SCH ×3 (01:10→15:09)
[2017-05-09] MEDS: HEPARIN SOD (PORCINE) 5,000 UNIT/ML 1 ML SYRINGE SUBCUT SCH ×2 (06:33→15:09)
[2017-05-09] MEDS: IPRATROPIUM/ALBUTEROL 0.5-2.5 MG/3 ML AMPUL NEB SCH (07:54)
[2017-05-09] MEDS: INSULIN LISPRO 100 UNIT/ML 3 ML VIAL SUBCUT SCH ×3 (07:58→17:20)
[2017-05-09] MEDS: LEVOTHYROXINE SODIUM 0.05 MG TABLET PO SCH (07:59)
[2017-05-09] MEDS: HYDROCODONE/ACETAMINOPHEN 7.5-325 MG TABLET PO PRN (07:59)
[2017-05-09] MEDS ORDERED: LEVOFLOXACIN 250 MG TABLET PO SCH (10:00)
[2017-05-09] MEDS: CALCIUM CARBONATE 250 MG/VITAMIN D3 125 UNIT TABLET PO SCH (10:03)
[2017-05-09] MEDS: DRONEDARONE HYDROCHLORIDE 400 MG TABLET PO SCH (10:03)
[2017-05-09] MEDS: FUROSEMIDE 20 MG TABLET PO SCH (10:04)
[2017-05-09] MEDS: POTASSIUM CHLORIDE 10 MEQ TABLET.SA PO SCH (10:04)
[2017-05-09] MEDS: PREDNISONE 20 MG TABLET PO SCH (10:05)
[2017-05-09] MEDS: DOCUSATE SODIUM 100 MG CAPSULE PO SCH ×2 (10:05→17:20)
--- NOTE | 2017-05-09 14:35 | PDOC DISCHARGE SUMMARY ---
General - Admit/Disc Date/PCP Admission Date/Primary Care Provider: 05/06/17 20:30 KD CISNEROS PA-C Discharge Date: 05/09/17 - Discharge Diagnosis (1) Intractable back pain Is this a current diagnosis for this admission?: Yes Summary: Patient's pain controlled with oral pain medication. (2) Vertebral fracture Is this a current diagnosis for this admission?: Yes Summary: Will have kyphoplasty done Sunday or Sunday. This has been discussed with patient and family (3) COPD exacerbation Is this a current diagnosis for this admission?: No Summary: Chronic COPD no acute exacerbation noted (4) Hyponatremia Is this a current diagnosis for this admission?: Yes Summary: Compared to hyperglycemia: Resolved (5) PAF (paroxysmal atrial fibrillation) Is this a current diagnosis for this admission?: Yes Summary: Continue patient's current medication. (6) UTI (urinary tract infection) Is this a current diagnosis for this admission?: Yes Summary: Secondary to Klebsiella and Citrobacter: Patient on Levaquin for 5 days. - Additional Information Resuscitation Status: Do Not Resuscitate Discharge Diet: Cardiac, Diabetic Discharge Activity: Activity As Tolerated Home Medications: Acetaminophen [Tylenol] 650 mg PO Q4HP PRN MDD 2600 MG 03/29/17 Atorvastatin Calcium [Lipitor 40 mg Tablet] 40 mg PO QHS 03/29/17 Docusate Sodium [Colace 100 mg Capsule] 100 mg PO BID 03/29/17 Dronedarone Hydrochloride [Multaq 400 mg Tablet] 400 mg PO Q12 03/29/17 Ergocalciferol (Vitamin D2) [Vitamin D2] 50,000 unit PO MO@1000 03/29/17 Fluoxetine HCl [Prozac 20 mg Capsule] 20 mg PO QHS 03/29/17 Furosemide [Lasix] 20 mg PO DAILY 03/29/17 Levothyroxine Sodium [Synthroid 0.05 mg Tablet] 50 mcg PO QAM 03/29/17 Montelukast Sodium [Singulair 10 mg Tablet] 10 mg PO QHS 03/29/17 Pantoprazole Sodium [Protonix] 40 mg PO QHS 03/29/17 Potassium Chloride 10 meq PO DAILY 03/29/17 Insulin Aspart [Novolog Flexpen] 8 unit SUBCUT AC 05/06/17 Insulin Glargine,Hum.rec.anlog [Lantus] 30 units SQ QHS 05/06/17 Prednisone 5 mg PO DAILY MDD LAST DOSE 05/10/17 05/06/17 Alprazolam [Xanax 0.25 mg Tablet] 0.25 mg PO BIDP PRN 05/07/17 Loperamide HCl [Imodium A-D] 2 mg PO ASDIR PRN MDD 8 MG 05/07/17 Melatonin 1 mg PO HSP PRN 05/07/17 Prednisone 2.5 mg PO DAILY MDD START 05/11/17 FOR 14 DAYS 05/07/17 Calcium Carbonate/Vitamin D3 [Os-Broderick 250 mg with Vitamin D 125 Units] 1 tab PO DAILY tablet 05/09/17 Hydrocodone/Acetaminophen [[place] 7.5-325 mg Tablet] 1 tab PO Q6HP PRN #12 tablet 05/09/17 Levofloxacin [Levaquin 250 mg Tablet] 250 mg PO DAILY #5 tablet 05/09/17 History of Present Illness Patient complains of: Back Pain History of Present Illness: JATINDER RODRIGUEZ is a 82 year old female who presented to our facility with complaint of back pain. Hospital Course Hospital Course: She is 82-year-old female who presents to our facility with complaint of back pain. Patient reports that approximately a week ago she noted that she started developing back pain and reduced mobility. Patient went to the emergency room where she was diagnosed with floor thoracic compression fractures. Patient was admitted to the hospital under observation so that she could be evaluated by Ortho. Physical Exam Vital Signs: Temp Pulse Resp BP Pulse Ox 98.0 F 79 16 87/42 L 91 L 05/09/17 11:06 05/09/17 11:06 05/09/17 11:06 05/09/17 11:06 05/09/17 11:06 Intake & Output 05/08/17 05/09/17 05/10/17 06:59 06:59 06:59 Intake Total 890 560 Output Total 500 500 Balance 390 60 Weight 69 kg 71.6 kg General appearance: PRESENT: no acute distress, well-developed, well-nourished Head exam: PRESENT: atraumatic, normocephalic Eye exam: PRESENT: conjunctiva pink, EOMI, PERRLA. ABSENT: scleral icterus Ear exam: PRESENT: normal external ear exam Mouth exam: PRESENT: moist, tongue midline Neck exam: ABSENT: carotid bruit, JVD, lymphadenopathy, thyromegaly Respiratory exam: PRESENT: clear to auscultation yaya. ABSENT: rales, rhonchi, wheezes Cardiovascular exam: PRESENT: RRR. ABSENT: diastolic murmur, rubs, systolic murmur Vascular exam: PRESENT: normal capillary refill GI/Abdominal exam: PRESENT: normal bowel sounds, soft. ABSENT: distended, guarding, mass, organolmegaly, rebound, tenderness Extremities exam: PRESENT: full ROM, tenderness - Pt with back pain.. ABSENT: calf tenderness, clubbing, pedal edema Musculoskeletal exam: PRESENT: tenderness - back pain tenderness with palpation Neurological exam: PRESENT: alert, awake, oriented to person, oriented to place , oriented to time, oriented to situation, CN II-XII grossly intact. ABSENT: motor sensory deficit Skin exam: PRESENT: dry, warm Results Laboratory Results: 05/07/17 05:36 05/07/17 05:36 Impressions: Chest X-Ray 05/06/17 16:39 IMPRESSION: NO ACUTE RADIOGRAPHIC FINDING IN THE CHEST. Lumbar Spine CT 05/06/17 16:39 IMPRESSION: Multiple vertebral compressions as noted above which are age indeterminate. Other findings as noted above. Thoracic Spine CT 05/06/17 16:39 IMPRESSION: Mild compression of 1 of the lower thoracic vertebra which is age indeterminate. No other vertebral compressions are identified. Other findings as noted above Lumbar Spine MRI 05/08/17 00:00 IMPRESSION: 1. Multiple chronic compression deformities. This is most marked at L2 with there is approximately 50% loss of height. There is no high-grade stenosis or nerve root impingement. 2. Abnormal marrow signal in the body of T11. Please refer to the MRI of the thoracic spine report for further discussion. Thoracic Spine MRI 05/08/17 00:00 IMPRESSION: Abnormal marrow signal at T11. This may represent impending compression fracture. Marrow replacement cannot be excluded. There chronic compression fractures at T12 and L1 with loss of less than 20% of height. Qualifiers PATEINT BEING DISCHARGED WITH ANY OF THE FOLLOWING DIAGNOSIS?: No VTE patient discharged on overlapping Therapy?: Yes
[2017-05-09 15:19] LABS: AMORPHOUS SEDIMENT,URINE TRACE /HPF; APPEARANCE,URINE SLIGHTLY-CLOUDY; BILIRUBIN,URINE NEGATIVE (NEGATIVE); GLUCOSE, URINE NEGATIVE (NEGATIVE); KETONES,URINE NEGATIVE (NEGATIVE); LEUKOCYTE ESTERASE,URINE LARGE (NEGATIVE); NITRITE,URINE NEGATIVE (NEGATIVE); PROTEIN,URINE NEGATIVE (NEGATIVE); UROBILINOGEN,URINE NEGATIVE mg/dL (<2.0)
[2017-05-09 17:04] VITALS: BP 93/52
--- NOTE | 2017-05-10 11:02 | CONSULTATION REPORT E ---
Consultation Report NAME: JATINDER RODRIGUEZ : 1935 AGE: 82Y DATE: 05/10/2017 ROOM: 401 A TO: EYAL DANG M.D. FROM: DR. WARD Requesting Physician REASON FOR CONSULT: Vertebral compression fracture, consideration for kyphoplasty. CHIEF COMPLAINT: Back pain from mid to low. HISTORY OF PRESENT ILLNESS: The patient is an 82-year-old female currently living in assisted living with past medical history of cardiac and pulmonary disease, including COPD, with recent history of lung cancer, seen in consultation secondary to sudden acute increase in low back pain. She had been in her usual state of health until about a week ago when she had increase in her mid and low back pain, worsened by movement and made her lay flat. She notes that she has had a few falls recently but no direct falls on her lower back or mid back. She notes that she was unable to move around and walk without exceptional pain, and after a discussion with her family she went to the emergency room where she was found to have multiple compression fractures in the thoracic and lumbar spine of indeterminate age. She was given IV pain medication and then oral medication and sent to the hospitalist for admission. She denies prior back pain similar to this presentation. She does have a history of back pain, but this is an acute change in severity and presentation of how extensive her back hurt. She denies any numbness or weakness or loss of bowel or bladder control. She was found to have a urinary tract infection on admission and was started on antibiotic therapy. The Pain Service was consulted for consideration for kyphoplasty. She notes the medications are helping with her back pain but not completely relieving it to where she can completely ambulate and function as she had previously. She denies any side effects from the medications. PAST MEDICAL HISTORY: Congestive heart failure, coronary artery disease, hyperlipidemia, hypertension, COPD, diabetes, hypothyroidism, prior history of lung cancer treated with chemoradiation. PAST SURGICAL HISTORY: Prior appendectomy and hysterectomy. SOCIAL HISTORY: Lives at assisted living facility. Denies smoking. Denies alcohol use. Denies illicits. CODE STATUS: SHE IS A DNR. FAMILY HISTORY: Noncontributory other than family history of malignancy. MEDICATIONS: See MAR. ALLERGIES: No known allergies. REVIEW OF SYSTEMS: Unchanged from her initial admission. See Estefany Aburto's note from 05/06/2017; no changes of note after review of each system. PHYSICAL EXAMINATION: GENERAL: Lying in bed. Cooperative. Mildly anxious. Well developed, well nourished. HEENT: Head is normocephalic, atraumatic. EOMI, PERRLA. NECK: Supple. RESPIRATORY: Clear to auscultation bilaterally. CARDIOVASCULAR: Regular rate and rhythm. No murmurs appreciated. Pulses bilaterally normal dorsalis pedis pulses. ABDOMEN: Normal bowel sounds. Soft, nondistended. EXTREMITIES: Full range of motion. SPINE: Tenderness to palpation from the lower thoracic around T10 to L5, worse at T10 and at L5 in between in the midline upon pressure but no step off appreciated. NEUROLOGIC: Alert and oriented x3. Moving all extremities. No motor or sensory deficits noted. PSYCHIATRIC: Normal mood, appropriate affect. IMAGING: Please see MAR for electronic imaging. ASSESSMENT: Patient with compression fractures of indeterminate age with prior history of malignancy. Concerning is acute pain flare. PLAN: 1. We have discussed with the patient kyphoplasty if they are acute or subacute fractures. We will order MRI of the thoracic and lumbar spine to evaluate this. 2. She will continue treatment for her urinary tract infection with antibiotics. We will repeat a UA to confirm improvement of her UTI. 3. She will continue on her oral pain medication with plan probably for transition to SNF to treat with kyphoplasty as outpatient. Given her history of cancer, we will plan for a biopsy if we do kyphoplasty. DICTATING PHYSICIAN: EYAL DANG M.D. [id number] PHY#: [id number] ID: [id number] JOB#: [id number] ACCT: [id number] cc:EYAL DANG M.D. >
== END 2017-05-09 17:45 | disposition home health service (06) ==
LOC: ER 16:11 → EH 20:30 → INTOOBSV 20:30 → 4N 21:20
PROVIDERS: ADMIT Internal Medicine; ATTEND Internal Medicine
DX: M54.89 Other dorsalgia (principal); M48.56XA Collapsed vertebra, not elsewhere classified, lumbar region, initial encounter for fracture; M48.54XA Collapsed vertebra, not elsewhere classified, thoracic region, initial encounter for fracture; J44.9 Chronic obstructive pulmonary disease, unspecified; E11.65 Type 2 diabetes mellitus with hyperglycemia; E87.1 Hypo-osmolality and hyponatremia; I48.0 Paroxysmal atrial fibrillation; N39.0 Urinary tract infection, site not specified; B96.1 Klebsiella pneumoniae [K. pneumoniae] as the cause of diseases classified elsewhere; B96.89 Other specified bacterial agents as the cause of diseases classified elsewhere; Z74.09 Other reduced mobility; I11.0 Hypertensive heart disease with heart failure; R93.7 Abnormal findings on diagnostic imaging of other parts of musculoskeletal system; M81.0 Age-related osteoporosis without current pathological fracture; I50.9 Heart failure, unspecified; I25.10 Atherosclerotic heart disease of native coronary artery without angina pectoris; E78.5 Hyperlipidemia, unspecified; E03.9 Hypothyroidism, unspecified; F19.20 Other psychoactive substance dependence, uncomplicated; Z85.118 Personal history of other malignant neoplasm of bronchus and lung; Z92.21 Personal history of antineoplastic chemotherapy; Z92.3 Personal history of irradiation; Z99.81 Dependence on supplemental oxygen; Z79.4 Long term (current) use of insulin; Z79.899 Other long term (current) drug therapy; Z66 Do not resuscitate; Z90.49 Acquired absence of other specified parts of digestive tract; Z90.710 Acquired absence of both cervix and uterus; Z91.81 History of falling
CPT/HCPCS: 99291; 96374; 36415 ×2; 87086; 82962 ×4; 85025 ×2; 87088; 80048; 80053; 81001 ×2; 87186; 72146; 72148; 71010; 72128; 72131; 94640 ×4; 97530; 97110; 97163; G0378 ×2; A9270 ×52; J1644 ×4; J0630; J3490; J1885 ×3; J2270 ×2; J2405; J0696 ×2; G8978; G8979; J1815; J7512; J7620

== ENCOUNTER 2017-06-30 12:14 | Emergency (ER) | payer MEDICARE, MEDICAID, OTHER ==
--- NOTE | 2017-06-30 14:05 | ER Document Report ---
ED Respiratory Problem - General Chief Complaint: Breathing Difficulty Stated Complaint: FURTHER EVALUATION PER CHEST XRAY Time Seen by Provider: 06/30/17 14:04 Notes: 82-year-old female patient to the emergency department for evaluation after having a positive chest x-ray as an outpatient. Possible pneumonia. Patient has a history of lung CA. Status post treatment. Has been increased cough. Denies fever. Feels actually pretty good except for the cough. Apparently primary care provider was unable to see this weekend so sent to the emergency department for evaluation for possible admission if needed for pneumonia. Patient states that she is not significantly short of breath. Not significantly worse than her baseline. No prior history of DVT. No prior history of PE. TRAVEL OUTSIDE OF THE [place] IN LAST 30 DAYS: No - Related Data Allergies/Adverse Reactions: No Known Allergies Allergy (Unverified 10/16/15 06:35) Past Medical History - Social History Smoking Status: Former Smoker Chew tobacco use (# tins/day): No Frequency of alcohol use: None Drug Abuse: None Family History: Reviewed & Not Pertinent, Malignancy - Past Medical History Cardiac Medical History: Reports: Hx Congestive Heart Failure, Hx Coronary Artery Disease, Hx Hypercholesterolemia, Hx Hypertension Denies: Hx DVT, Hx Pulmonary Embolism Pulmonary Medical History: Reports: Hx COPD Denies: Hx Asthma, Hx Sleep Apnea Neurological Medical History: Denies: Hx Seizures Endocrine Medical History: Reports: Hx Diabetes Mellitus Type 2, Hx Hypothyroidism. Denies: Hx Hyperthyroidism Renal/ Medical History: Denies: Hx Peritoneal Dialysis Malignancy Medical History: Reports: Hx Lung Cancer GI Medical History: Denies: Hx Cirrhosis, Hx Gastroesophageal Reflux Disease, Hx Hepatitis Psychiatric Medical History: Denies: Hx Depression Infectious Medical History: Denies: Hx C-Diff, Hx Hepatitis, Hx MRSA Past Surgical History: Reports: Hx Appendectomy, Hx Hysterectomy - Immunizations Hx Diphtheria, Pertussis, Tetanus Vaccination: Yes Review of Systems - Review of Systems Constitutional: No symptoms reported EENT: No symptoms reported Cardiovascular: No symptoms reported Respiratory: No symptoms reported, Cough, Short of breath Gastrointestinal: No symptoms reported Genitourinary: No symptoms reported Female Genitourinary: No symptoms reported Musculoskeletal: No symptoms reported Skin: No symptoms reported Hematologic/Lymphatic: No symptoms reported Neurological/Psychological: No symptoms reported Physical Exam - Vital signs Vitals: Resp Pulse Ox 21 H 99 06/30/17 12:25 06/30/17 12:25 Interpretation: Normal - General General appearance: Appears well, Alert - HEENT Head: Normocephalic, Atraumatic Eyes: Normal Pupils: PERRL - Respiratory Respiratory status: No respiratory distress Chest status: Nontender Breath sounds: Normal, Nonproductive cough, Wheezing Chest palpation: Normal - Cardiovascular Rhythm: Regular Heart sounds: Normal auscultation Murmur: No - Abdominal Inspection: Normal Distension: No distension Bowel sounds: Normal Tenderness: Nontender Organomegaly: No organomegaly - Back Back: Normal, Nontender - Extremities General upper extremity: Normal inspection, Nontender, Normal color, Normal ROM , Normal temperature General lower extremity: Normal inspection, Nontender, Normal color, Normal ROM , Normal temperature, Normal weight bearing. No: Tulio's sign - Neurological Neuro grossly intact: Yes Cognition: Normal Orientation: AAOx4 Abdon Coma Scale Eye Opening: Spontaneous Abdon Coma Scale Verbal: Oriented Abdon Coma Scale Motor: Obeys Commands Abdon Coma Scale Total: 15 Speech: Normal Motor strength normal: LUE, RUE, LLE, RLE Sensory: Normal - Psychological Associated symptoms: Normal affect, Normal mood - Skin Skin Temperature: Warm Skin Moisture: Dry Skin Color: Normal Course - Re-evaluation Re-evalutation: 06/30/17 16:42 82-year-old female patient with history of lung CA. COPD. Had increasing cough. Questionable positive chest x-ray reviewed by outside facility. Repeat workup performed here today fairly unremarkable. Patient with no fever. No elevated WBC. Chest x-ray appears relatively unchanged from prior. We will start her on a short course of steroids. Encourage her to use her albuterol/ nebulizer at home which she states that she has and can do, antibiotics and reassess 06/30/17 16:43 06/30/17 06/30/17 14:50 14:50 Hgb 10.0 L Hct 30.5 L MCV 70 L MCH 22.8 L RDW 19.2 H Glucose 236 H AST 13 L Total Protein 5.8 L Albumin 3.3 L Labs- All tests 24 hr 06/30/17 06/30/17 06/30/17 14:50 14:50 14:50 WBC 7.3 RBC 4.37 Hgb 10.0 L Hct 30.5 L MCV 70 L MCH 22.8 L MCHC 32.6 RDW 19.2 H Plt Count 370 Seg Neutrophils % 68.6 Lymphocytes % 16.9 Monocytes % 11.3 Eosinophils % 2.3 Basophils % 0.9 Absolute Neutrophils 5.0 Absolute Lymphocytes 1.2 Absolute Monocytes 0.8 Absolute Eosinophils 0.2 Absolute Basophils 0.1 PT 13.4 INR 0.95 Sodium 139.1 Potassium 3.9 Chloride 99 Carbon Dioxide 30 Anion Gap 10 BUN 9 Creatinine 0.84 Est GFR ( Amer) > 60 Est GFR (Non-Af Amer) > 60 Glucose 236 H Calcium 9.3 Total Bilirubin 0.7 Direct Bilirubin 0.3 Indirect Bilirubin Not Reportable Neonat Total Bilirubin Not Reportable AST 13 L ALT 25 Alkaline Phosphatase 121 Troponin I Total Protein 5.8 L Albumin 3.3 L 06/30/17 14:50 WBC RBC Hgb Hct MCV MCH MCHC RDW Plt Count Seg Neutrophils % Lymphocytes % Monocytes % Eosinophils % Basophils % Absolute Neutrophils Absolute Lymphocytes Absolute Monocytes Absolute Eosinophils Absolute Basophils PT INR Sodium Potassium Chloride Carbon Dioxide Anion Gap BUN Creatinine Est GFR ( Amer) Est GFR (Non-Af Amer) Glucose Calcium Total Bilirubin Direct Bilirubin Indirect Bilirubin Neonat Total Bilirubin AST ALT Alkaline Phosphatase Troponin I < 0.012 Total Protein Albumin - Vital Signs Vital signs: Temp Pulse Resp BP Pulse Ox 98.3 F 16 116/52 L 99 06/30/17 12:33 06/30/17 12:44 06/30/17 12:26 06/30/17 12:26 - Laboratory Result Diagrams: 06/30/17 14:50 06/30/17 14:50 Laboratory results interpreted by me: 06/30/17 06/30/17 14:50 14:50 Hgb 10.0 L Hct 30.5 L MCV 70 L MCH 22.8 L RDW 19.2 H Glucose 236 H AST 13 L Total Protein 5.8 L Albumin 3.3 L - EKG Interpretation by Mo EKG shows normal: Sinus rhythm, [place], Intervals, QRS Complexes, ST-T Waves - Borderline inferior Q waves. When compared to previous EKG there are: No significant change Discharge - Discharge Clinical Impression: Pneumonia Qualifiers: Pneumonia type: due to unspecified organism Laterality: left Lung location: lower lobe of lung Qualified Code(s): J18.1 - Lobar pneumonia, unspecified organism Condition: Good Additional Instructions: Pneumonia Your examination indicates that you have pneumonia. This is an infection of the lung tissue, usually caused by bacteria or a virus. Symptoms include cough, fever, shaking chills, chest pain, shortness of breath, and coughing up bloody sputum. Treatment for bacterial pneumonia includes rest, antibiotics for 10 to 14 days, increasing your clear liquid intake, a cool mist humidifier at your bedside, and fever medication. Often, a repeat chest X-ray is performed in a few weeks--even if you feel better--to ascertain whether the infection has completely resolved and no underlying lung problem is present. You should call the physician if you develop persistent vomiting, high fever that does not respond to fever medication, increasing shortness of breath , confusion, or lethargy. Also, failure to improve within two to three days is an indication for re-examination. Prescriptions: Amoxicillin 500 mg PO TID #30 capsule Prednisone [Deltasone 20 mg Tablet] 3 tab PO DAILY 3 Days #9 tablet
[2017-06-30] MEDS ORDERED: ALBUTEROL SULFATE 0.083% NEB 2.5 MG/3 ML AMPUL NEB ONE (14:40)
[2017-06-30 15:07] LABS: ABSOLUTE BASOPHILS # (AUTO) 0.1 10^3/uL (0.0-0.2); ABSOLUTE EOSINOPHILS # (AUTO) 0.2 10^3/uL (0.0-0.6); ABSOLUTE LYMPHOCYTES (AUTO) 1.2 10^3/uL (0.5-4.7); ABSOLUTE MONOCYTES (AUTO) 0.8 10^3/uL (0.1-1.4); BASOPHILS % (AUTO) 0.9 % (0-2); EOSINOPHILS % (AUTO) 2.3 % (0-6); HEMATOCRIT 30.5 % (36.0-47.0); HGB HCT DIFFERENCE -0.5; LYMPHOCYTES % (AUTO) 16.9 % (13-45); MEAN CORPUSCULAR HEMOGLOBIN 22.8 pg (27.0-33.4); MEAN CORPUSCULAR HGB CONC 32.6 g/dL (32.0-36.0); MEAN CORPUSCULAR VOLUME 70 fl (80-97); MONOCYTES % (AUTO) 11.3 % (3-13); RED BLOOD COUNT 4.37 10^6/uL (3.72-5.28); RED CELL DISTRIBUTION WIDTH 19.2 % (11.5-14.0); SEGMENTED NEUTROPHILS % (AUTO) 68.6 % (42-78); WHITE BLOOD COUNT 7.3 10^3/uL (4.0-10.5)
[2017-06-30 15:14] LABS: PROTHROMBIN TIME 13.4 SEC (11.4-15.4)
[2017-06-30 15:29] LABS: ALANINE AMINOTRANSFERASE 25 U/L (9-52); ALBUMIN 3.3 g/dL (3.5-5.0); ALKALINE PHOSPHATASE 121 U/L (38-126); ANION GAP 10 (5-19); ASPARTATE AMINO TRANSFERASE 13 U/L (14-36); BILIRUBIN,DIRECT 0.3 mg/dL (0.0-0.4); BILIRUBIN,TOTAL 0.7 mg/dL (0.2-1.3); BLOOD UREA NITROGEN 9 mg/dL (7-20); CALCIUM 9.3 mg/dL (8.4-10.2); CARBON DIOXIDE 30 mmol/L (22-30); CHLORIDE 99 mmol/L (98-107); CREATININE RESULT 0.84 mg/dL (0.52-1.25); GLUCOSE 236 mg/dL (75-110); POTASSIUM 3.9 mmol/L (3.6-5.0); SODIUM 139.1 mmol/L (137-145); TOTAL PROTEIN 5.8 g/dL (6.3-8.2)
[2017-06-30] MEDS ORDERED: AMOXICILLIN TRIHYDRATE 500 MG CAPSULE PO ONE (16:45)
[2017-06-30] MEDS ORDERED: PREDNISONE 20 MG TABLET PO ONE (16:45)
--- NOTE | 2017-06-30 16:49 | RADIOLOGY REPORT (SQ) ---
EXAM DESCRIPTION: CHEST SINGLE VIEW COMPLETED DATE/TIME: 06/30/2017 4:25 pm REASON FOR STUDY: sob COMPARISON: 05/06/2017 and 03/31/2017 EXAM PARAMETERS: NUMBER OF VIEWS: One view. TECHNIQUE: Single frontal radiographic view of the chest acquired. RADIATION DOSE: NA LIMITATIONS: None. FINDINGS: LUNGS AND PLEURA: No opacities, masses or pneumothorax. No pleural effusion. MEDIASTINUM AND HILAR STRUCTURES: No masses. Contour normal. HEART AND VASCULAR STRUCTURES: Heart normal in size. Normal vasculature. BONES: No acute findings. HARDWARE: None in the chest. OTHER: No other significant finding. IMPRESSION: NO ACUTE RADIOGRAPHIC FINDING IN THE CHEST. TECHNICAL DOCUMENTATION: JOB ID: [id number]
[2017-06-30 16:53] VITALS: BP 123/52
--- NOTE | 2017-06-30 17:19 | EKG REPORT ---
SEVERITY:- ABNORMAL ECG - SINUS RHYTHM BORDERLINE INFERIOR Q WAVES PROLONGED QT INTERVAL : Confirmed by: Valerio Duarte MD 30-Jun-2017 17:19:08
== END 2017-06-30 17:59 | disposition home or self-care (01) ==
LOC: ER 12:14
DX: J44.0 Chronic obstructive pulmonary disease with (acute) lower respiratory infection (principal); J18.1 Lobar pneumonia, unspecified organism; R05 Cough; I10 Essential (primary) hypertension; I25.10 Atherosclerotic heart disease of native coronary artery without angina pectoris; E11.9 Type 2 diabetes mellitus without complications; Z85.118 Personal history of other malignant neoplasm of bronchus and lung; Z87.891 Personal history of nicotine dependence
CPT/HCPCS: 93005; 94640; 99285; 36415; 87040; 85025; 85610; 80053; 84484; 83605; 71010; 93010; A9270 ×3; J7512

== ENCOUNTER 2017-08-12 17:17 | Inpatient (IN) | payer MEDICARE, MEDICAID ==
[2017-08-12 17:53] LABS: ABSOLUTE BASOPHILS # (AUTO) 0.1 10^3/uL (0.0-0.2); ABSOLUTE EOSINOPHILS # (AUTO) 0.2 10^3/uL (0.0-0.6); ABSOLUTE MONOCYTES (AUTO) 1.4 10^3/uL (0.1-1.4); ABSOLUTE NEUT (AUTO) 9.3 10^3/uL (1.7-8.2); BASOPHILS % (AUTO) 0.7 % (0-2); EOSINOPHILS % (AUTO) 1.4 % (0-6); HEMOGLOBIN 10.2 g/dL (12.0-15.5); HGB HCT DIFFERENCE -1.4; LYMPHOCYTES % (AUTO) 21.4 % (13-45); MEAN CORPUSCULAR HEMOGLOBIN 22.7 pg (27.0-33.4); MEAN CORPUSCULAR HGB CONC 31.9 g/dL (32.0-36.0); MEAN CORPUSCULAR VOLUME 71 fl (80-97); MONOCYTES % (AUTO) 9.9 % (3-13); RED BLOOD COUNT 4.49 10^6/uL (3.72-5.28); RED CELL DISTRIBUTION WIDTH 19.1 % (11.5-14.0); SEGMENTED NEUTROPHILS % (AUTO) 66.6 % (42-78)
[2017-08-12 17:59] LABS: PROTHROMBIN TIME 14.3 SEC (11.4-15.4)
[2017-08-12 18:00] LABS: VENOUS BLOOD HCO3 29.1 mmol/L (20-32); VENOUS BLOOD PCO2 45.1 mmHg (35-63); VENOUS BLOOD PH 7.43 (7.30-7.42)
[2017-08-12] MEDS ORDERED: METHYLPREDNISOLONE INJ 125 MG/2 ML SDV IV ONE (18:06)
[2017-08-12] MEDS ORDERED: IPRATROPIUM/ALBUTEROL 0.5-2.5 MG/3 ML AMPUL NEB ONE (18:06)
--- NOTE | 2017-08-12 18:06 | ER Document Report ---
ED General - General Mode of Arrival: Medic Information source: Patient TRAVEL OUTSIDE OF THE [place] IN LAST 30 DAYS: No - HPI Onset: Other - 4-5 days ago <MARISABEL MILLARD - Last Filed: 08/12/17 18:21> <CURTIS PALMA - Last Filed: 08/12/17 22:11> - General Chief Complaint: Shortness Of Breath Stated Complaint: WEAKNESS Time Seen by Provider: 08/12/17 17:54 Notes: Patient is an 82 year old female with a history of COPD, asthma, and lung cancer presents to the emergency department via EMS complaining of multiple symptoms including cough, congestion, and fevers onset 4 days ago. Patient states that she generally has not been feeling well. Patients associated symptoms include decreased appetite, onset 3 days ago and white sputum when she coughs. EMS states that the patients temperature upon arrival to her home was 101.9. EMS proceeded to give Albuterol treatments as well as Tylenol. Patient states that she received chemotherapy and radiation for her lung cancer and has been cancer free for 2-3 years. (MARISABEL MILLARD) - Related Data Allergies/Adverse Reactions: No Known Allergies Allergy (Verified 08/12/17 18:52) Past Medical History - General Information source: Patient - Social History Smoking Status: Former Smoker - quit smoking 8 years ago Cigarette use (# per day): No Chew tobacco use (# tins/day): No Smoking Education Provided: No Frequency of alcohol use: None Family History: Reviewed & Not Pertinent, Malignancy - Past Medical History Cardiac Medical History: Reports: Hx Congestive Heart Failure, Hx Coronary Artery Disease, Hx Hypercholesterolemia, Hx Hypertension Pulmonary Medical History: Reports: Hx COPD Endocrine Medical History: Reports: Hx Diabetes Mellitus Type 2, Hx Hypothyroidism Malignancy Medical History: Reports: Hx Lung Cancer Past Surgical History: Reports: Hx Appendectomy, Hx Hysterectomy - Immunizations Hx Diphtheria, Pertussis, Tetanus Vaccination: Yes <MARISABEL MILLARD - Last Filed: 08/12/17 18:21> Review of Systems - Review of Systems Constitutional: See HPI, Fever EENT: No symptoms reported Cardiovascular: No symptoms reported Respiratory: See HPI, Cough, Sputum - white Gastrointestinal: See HPI, Poor appetite Genitourinary: No symptoms reported Female Genitourinary: No symptoms reported Musculoskeletal: No symptoms reported Skin: No symptoms reported Hematologic/Lymphatic: No symptoms reported Neurological/Psychological: No symptoms reported -: Yes All other systems reviewed and negative <MARISABEL MILLARD - Last Filed: 08/12/17 18:21> Physical Exam - General General appearance: Appears well, Alert In distress: None - HEENT Head: Normocephalic, Atraumatic Eyes: Normal Conjunctiva: Normal Pupils: PERRL Mucous membranes: Moist - Respiratory Respiratory status: No respiratory distress Breath sounds: Productive cough - frequent, Rhonchi, Wheezing - Cardiovascular Rhythm: Regular Heart sounds: Normal auscultation Murmur: No Friction rub: No Gallop: None auscultated - Abdominal Inspection: Obese Distension: No distension Bowel sounds: Normal Tenderness: Nontender Organomegaly: No organomegaly - Back Back: Normal - Extremities General upper extremity: Normal inspection, Normal ROM General lower extremity: Normal inspection, Normal ROM - Neurological Neuro grossly intact: Yes Cognition: Normal Orientation: AAOx4 Abdon Coma Scale Eye Opening: Spontaneous Abdon Coma Scale Verbal: Oriented [place]rees Coma Scale Motor: Obeys Commands Notrees Coma Scale Total: 15 Speech: Normal - Psychological Associated symptoms: Normal affect, Normal mood - Skin Skin Temperature: Warm Skin Moisture: Dry Skin Color: Normal <MARISABEL MILLARD - Last Filed: 08/12/17 18:21> - Vital signs Vitals: Resp Pulse Ox 24 H 99 08/12/17 17:29 08/12/17 17:29 Course - Laboratory Result Diagrams: 08/12/17 17:38 08/12/17 17:38 <MARISABEL MILLARD - Last Filed: 08/12/17 18:21> - Laboratory Result Diagrams: 08/12/17 17:38 08/12/17 17:38 - Diagnostic Test Radiology reviewed: Image reviewed, Reports reviewed - Chest x-ray shows a stable chest, nothing acute, appearance of old surgical changes and volume loss in the left lung. The right lung is hyperinflated. - EKG Interpretation by Tx EKG shows normal: Sinus rhythm, [place], Intervals, QRS Complexes. abnormal: ST-T Waves - Nonspecific diffuse T abnormalities Rate: Normal - 96 Rhythm: NSR - Consults Dr. Dorsey Time consulted: 22:00 Consulted provider: will come to ER - Telemetry admit. <CURTIS PALMA - Last Filed: 11/26/17 22:11> - Re-evaluation Re-evalutation: 08/12/17 21:54 After several breathing treatments, patient still has quite a bit of wheezes and rhonchi. (CURTIS PALMA) - Vital Signs Vital signs: Temp Pulse Resp BP Pulse Ox 100.4 F 23 H 100/51 L 100 08/12/17 17:48 08/12/17 19:01 08/12/17 19:11 08/12/17 19:01 - Laboratory Laboratory results interpreted by me: 08/12/17 08/12/17 08/12/17 17:38 17:38 17:38 WBC 14.0 H Hgb 10.2 L Hct 32.0 L MCV 71 L MCH 22.7 L MCHC 31.9 L RDW 19.1 H Absolute Neutrophils 9.3 H VBG pH 7.43 H Potassium 3.5 L Est GFR (Non-Af Amer) 54 L Glucose 172 H Creatine Kinase Total Protein 5.5 L Albumin 3.4 L 08/12/17 19:00 WBC Hgb Hct MCV MCH MCHC RDW Absolute Neutrophils VBG pH Potassium Est GFR (Non-Af Amer) Glucose Creatine Kinase < 20 L Total Protein Albumin Discharge <MARISABEL MILLARD - Last Filed: 08/12/17 18:21> - Discharge Admitting Provider: Hospitalist Unit Admitted: Telemetry <CURTIS PALMA - Last Filed: 08/12/17 22:11> - Discharge Clinical Impression: Acute exacerbation of chronic obstructive pulmonary disease (COPD) Fever Qualifiers: Fever type: unspecified Qualified Code(s): R50.9 - Fever, unspecified Leukocytosis Qualifiers: Leukocytosis type: other Qualified Code(s): D72.828 - Other elevated white blood cell count Condition: Stable Disposition: ADMITTED INPATIENT Referrals: KD CISNEROS PA-C [Primary Care Provider] - Follow up as needed Scribe Attestation: 08/12/17 22:11 I personally performed the services described in the documentation, reviewed and edited the documentation which was dictated to the scribe in my presence, and it accurately records my words and actions. (CURTIS PALMA) Scribe Documentation - Scribe Written by Robert:: Robert Tai, 08/12/2017 18:16 acting as scribe for :: Carlos <MARISABEL MILLARD - Last Filed: 08/12/17 18:21>
[2017-08-12 18:19] LABS: ALANINE AMINOTRANSFERASE 24 U/L (9-52); ALBUMIN 3.4 g/dL (3.5-5.0); ALKALINE PHOSPHATASE 118 U/L (38-126); ANION GAP 12 (5-19); ASPARTATE AMINO TRANSFERASE 15 U/L (14-36); BILIRUBIN,DIRECT 0.3 mg/dL (0.0-0.4); BILIRUBIN,TOTAL 0.9 mg/dL (0.2-1.3); BLOOD UREA NITROGEN 13 mg/dL (7-20); CALCIUM 8.8 mg/dL (8.4-10.2); CARBON DIOXIDE 29 mmol/L (22-30); CHLORIDE 98 mmol/L (98-107); CREATININE RESULT 0.98 mg/dL (0.52-1.25); GLUCOSE 172 mg/dL (75-110); POTASSIUM 3.5 mmol/L (3.6-5.0); SODIUM 139.2 mmol/L (137-145); TOTAL PROTEIN 5.5 g/dL (6.3-8.2)
[2017-08-12] MEDS ORDERED: ALBUTEROL SULFATE 0.083% NEB 2.5 MG/3 ML AMPUL NEB ONE (19:12)
[2017-08-12 19:44] LABS: CREATINE KINASE MB 0.54 ng/mL (<4.55); TROPONIN I 0.029 ng/mL
--- NOTE | 2017-08-12 19:54 | RADIOLOGY REPORT (SQ) ---
EXAM DESCRIPTION: CHEST SINGLE VIEW COMPLETED DATE/TIME: 08/12/2017 7:39 pm REASON FOR STUDY: Fever, COPD exacerbation COMPARISON: 06/30/2017. NUMBER OF VIEWS: One view. TECHNIQUE: Single frontal radiographic view of the chest acquired. LIMITATIONS: None. FINDINGS: LUNGS AND PLEURA: Postoperative changes in left hemithorax. Scar and mild distortion in t he left upper lobe with generalized volume loss. Right lung hyperinflated but clear. No developing infiltrates or opacities. MEDIASTINUM AND HILAR STRUCTURES: Stable. HEART AND VASCULAR STRUCTURES: Heart normal in size. Normal vasculature. BONES: Osteopenia without gross fracture. HARDWARE: None in the chest. OTHER: No other significant finding. IMPRESSION: Stable chest. No acute cardiopulmonary changes. TECHNICAL DOCUMENTATION: JOB ID: [id number] [employer]- All Rights Reserved
[2017-08-12] MEDS ORDERED: LEVOFLOXACIN 750 MG/D5W RTU 750 MG/150 ML RTUPB IV ONE (21:58)
[2017-08-12] MEDS ORDERED: CHLORPHENIRAMINE MALEATE 4 MG TABLET PO ONE (22:04)
[2017-08-12] MEDS ORDERED: ACETAMINOPHEN 325 MG TABLET PO PRN (22:05)
[2017-08-12] MEDS ORDERED: DEXTROSE 50%-WATER 25 GM/50 ML DISP.SYRIN IV PRN ×2 (22:07)
[2017-08-12] MEDS ORDERED: GLUCAGON,HUMAN RECOMB 1 MG INJ IM PRN (22:07)
[2017-08-12] MEDS ORDERED: DEXTROSE 40% GEL 15 GM TUBE PO PRN ×2 (22:07)
[2017-08-12] MEDS ORDERED: IPRATROPIUM/ALBUTEROL 0.5-2.5 MG/3 ML AMPUL NEB PRN (22:07)
[2017-08-12] MEDS ORDERED: DRONEDARONE HYDROCHLORIDE 400 MG TABLET PO ONE (22:15)
[2017-08-12] MEDS ORDERED: FLUTICASONE NASAL SPRAY 50 MCG/SPRY 120 SPRAY/16 GM NASL ONE (22:30)
[2017-08-12] MEDS ORDERED: PREDNISONE 20 MG TABLET PO ONE (22:30)
[2017-08-12] MEDS ORDERED: INSULIN GLARGINE,HUM.REC.ANLOG 1,000 UNIT/10 ML UNIT SUBCUT ONE (22:30)
[2017-08-12] MEDS ORDERED: LANSOPRAZOLE 30 MG TAB.RAP.DR PO ONE (22:30)
[2017-08-13] MEDS: IPRATROPIUM/ALBUTEROL 0.5-2.5 MG/3 ML AMPUL NEB SCH ×3 (00:43→16:55)
[2017-08-13 00:51] LABS: APPEARANCE,URINE CLEAR; BILIRUBIN,URINE NEGATIVE (NEGATIVE); GLUCOSE, URINE >=500 mg/dL (NEGATIVE); KETONES,URINE NEGATIVE (NEGATIVE); LEUKOCYTE ESTERASE,URINE NEGATIVE (NEGATIVE); NITRITE,URINE NEGATIVE (NEGATIVE); PROTEIN,URINE NEGATIVE (NEGATIVE); URINE SPECIFIC GRAVITY 1.007; UROBILINOGEN,URINE NEGATIVE mg/dL (<2.0)
[2017-08-13] MEDS: FLUOXETINE HCL 20 MG CAPSULE PO SCH ×2 (01:45→22:00)
[2017-08-13] MEDS: MONTELUKAST SODIUM 10 MG TABLET PO SCH ×2 (01:45→22:00)
[2017-08-13 04:34] LABS: ABSOLUTE LYMPHOCYTES (AUTO) 0.5 10^3/uL (0.5-4.7); ABSOLUTE MONOCYTES (AUTO) 0.1 10^3/uL (0.1-1.4); ABSOLUTE NEUT (AUTO) 7.6 10^3/uL (1.7-8.2); BASOPHILS % (AUTO) 0.1 % (0-2); HEMATOCRIT 31.4 % (36.0-47.0); HEMOGLOBIN 10.2 g/dL (12.0-15.5); HGB HCT DIFFERENCE -0.8; LYMPHOCYTES % (AUTO) 5.9 % (13-45); MEAN CORPUSCULAR HEMOGLOBIN 23.4 pg (27.0-33.4); MEAN CORPUSCULAR HGB CONC 32.5 g/dL (32.0-36.0); MEAN CORPUSCULAR VOLUME 72 fl (80-97); MONOCYTES % (AUTO) 1.6 % (3-13); RED BLOOD COUNT 4.37 10^6/uL (3.72-5.28); RED CELL DISTRIBUTION WIDTH 19.3 % (11.5-14.0); SEGMENTED NEUTROPHILS % (AUTO) 92.4 % (42-78); WHITE BLOOD COUNT 8.2 10^3/uL (4.0-10.5)
[2017-08-13 04:42] LABS: ANION GAP 14 (5-19); BLOOD UREA NITROGEN 18 mg/dL (7-20); CALCIUM 9.4 mg/dL (8.4-10.2); CARBON DIOXIDE 27 mmol/L (22-30); CHLORIDE 98 mmol/L (98-107)
[2017-08-13 04:59] LABS: GLUCOSE 513 mg/dL (75-110)
[2017-08-13] MEDS: HEPARIN SOD (PORCINE) 5,000 UNIT/ML 1 ML SYRINGE SUBCUT SCH ×3 (05:09→22:01)
[2017-08-13] MEDS: INSULIN LISPRO 100 UNIT/ML 3 ML VIAL SUBCUT PRN ×3 (05:13→22:10)
--- NOTE | 2017-08-13 05:59 | EKG REPORT ---
SEVERITY:- ABNORMAL ECG - SINUS RHYTHM NONSPECIFIC T ABNORMALITIES, DIFFUSE LEADS : Confirmed by: Marcia Tony MD 13-Aug-2017 05:58:49
--- NOTE | 2017-08-13 06:05 | PDOC H&P ---
History of Present Illness Admission Date/PCP: 08/12/17 22:27 KD CISNEROS PA-C Patient complains of: Shortness of breath History of Present Illness: JATINDER RODRIGUEZ is a 82 year old female with a past medical history of insulin-dependent diabetes, oxygen and steroid-dependent COPD, asthma, remote lung cancer status post chemo and radiation, cancer free for 2 years. Patient is a long-term assisted living resident and presents with malaise, fatigue, 3 days of cough and white sputum. Today developed a temperature of 101.9 and brought to the emergency room for evaluation. She is found to have shortness of breath, leukocytosis, elevated BNP, uncontrolled hyperglycemia and referred to the hospitalist for admission. She denies recent change in medications, chest pain palpitations nausea vomiting, rhinorrhea or GERD. Past Medical History Cardiac Medical History: Reports: Coronary Artery Disease, Hyperlipidema, Hypertension Denies: DVT, Pulmonary Embolism Pulmonary Medical History: Reports: Chronic Obstructive Pulmonary Disease (COPD) Denies: Asthma, Sleep Apnea Neurological Medical History: Denies: Seizures Endocrine Medical History: Reports: Diabetes Mellitus Type 2, Hypothyroidism Denies: Hyperthyroidism Malignancy Medical History: Reports: Lung Cancer GI Medical History: Denies: Cirrhosis, Gastroesophageal Reflux Disease, Hepatitis Psychiatric Medical History: Denies: Depression Infectious Medical History: Denies: Clostridium Difficile, Methicillin-Resistant Staph Aureus Past Surgical History Past Surgical History: Reports: Appendectomy, Hysterectomy Social History Information Source: Patient, [facility] Records Smoking Status: Former Smoker Last Time Smoked: 2009 Frequency of Alcohol Use: None Hx Recreational Drug Use: No Drugs: None Hx Prescription Drug Abuse: No - Advance Directive Resuscitation Status: Do Not Resuscitate Family History Family History: COPD, Malignancy Parental Family History Reviewed: Yes Children Family History Reviewed: Yes Sibling(s) Family History Reviewed.: Yes Medication/Allergy Home Medications: Acetaminophen [Tylenol] 650 mg PO Q4HP PRN MDD 2600 MG 03/29/17 Atorvastatin Calcium [Lipitor 40 mg Tablet] 40 mg PO QHS 03/29/17 Docusate Sodium [Colace 100 mg Capsule] 100 mg PO BID 03/29/17 Dronedarone Hydrochloride [Multaq 400 mg Tablet] 400 mg PO Q12 03/29/17 Ergocalciferol (Vitamin D2) [Vitamin D2] 50,000 unit PO MO@1000 03/29/17 Fluoxetine HCl [Prozac 20 mg Capsule] 20 mg PO QHS 03/29/17 Furosemide [Lasix] 20 mg PO DAILY 03/29/17 Levothyroxine Sodium [Synthroid 0.05 mg Tablet] 50 mcg PO QAM 03/29/17 Montelukast Sodium [Singulair 10 mg Tablet] 10 mg PO QHS 03/29/17 Pantoprazole Sodium [Protonix] 40 mg PO QHS 03/29/17 Potassium Chloride 10 meq PO DAILY 03/29/17 Insulin Aspart [Novolog Flexpen] 10 unit SUBCUT AC 05/06/17 Insulin Glargine,Hum.rec.anlog [Lantus] 34 units SQ QHS 05/06/17 Alprazolam [Xanax 0.25 mg Tablet] 0.25 mg PO BIDP PRN 05/07/17 Loperamide HCl [Imodium A-D] 4 mg PO ASDIR PRN MDD 8 MG 05/07/17 Melatonin 1 mg PO HSP PRN 05/07/17 Albuterol Sulfate [Ventolin 0.083% Neb 2.5 mg/3 ml Ampul] 2.5 mg NEB Q6H PRN Ascorbic Acid [Vitamin C] 500 mg PO BID 08/13/17 Bismuth Subsalicylate [Pepto-Bismol Susp 524 mg/30 ml Udcup] 1 dose PO Q4H PRN 08/13/17 Calcium Carbonate/Vitamin D3 [Calcium 500-Vit D3 400 Tablet] 1 tab PO BID Ferrous Sulfate 1 tab PO BID 08/13/17 Glycopyrrolate/Formoterol Fum [Bevespi Aerosphere Inhaler] 4.8 mcg IH BID Guaifenesin/D-Methorphan Hb [Robitussin-Dm Syrup 10 Ml Udcup] 10 ml PO Q4H PRN 08/13/17 Allergies/Adverse Reactions: No Known Allergies Allergy (Verified 08/12/17 18:52) Review of Systems Constitutional: ABSENT: chills, fever(s), headache(s), weight gain, weight loss Eyes: ABSENT: visual disturbances Ears: ABSENT: hearing changes Cardiovascular: ABSENT: chest pain, dyspnea on exertion, edema, orthropnea, palpitations Respiratory: ABSENT: cough, hemoptysis Gastrointestinal: ABSENT: abdominal pain, constipation, diarrhea, hematemesis, hematochezia, nausea, vomiting Genitourinary: ABSENT: dysuria, hematuria Musculoskeletal: ABSENT: joint swelling Integumentary: ABSENT: rash, wounds Neurological: ABSENT: abnormal gait, abnormal speech, confusion, dizziness, focal weakness, syncope Psychiatric: ABSENT: anxiety, depression, homidical ideation, suicidal ideation Endocrine: ABSENT: cold intolerance, heat intolerance, polydipsia, polyuria Hematologic/Lymphatic: ABSENT: easy bleeding, easy bruising Physical Exam Vital Signs: Temp Pulse Resp BP Pulse Ox 97.4 F 77 20 133/64 H 100 08/13/17 04:05 08/13/17 04:05 08/13/17 04:05 08/13/17 04:05 08/13/17 04:05 Intake & Output 08/11/17 08/12/17 08/13/17 11:59 11:59 11:59 Intake Total 50 Balance 50 Weight 70.1 kg General appearance: PRESENT: no acute distress, cooperative, well-developed, well-nourished Head exam: PRESENT: atraumatic, normocephalic Eye exam: PRESENT: conjunctiva pink, EOMI, PERRLA. ABSENT: scleral icterus Ear exam: PRESENT: normal external ear exam Mouth exam: PRESENT: moist, tongue midline Neck exam: ABSENT: carotid bruit, JVD, lymphadenopathy, thyromegaly Respiratory exam: PRESENT: clear to auscultation yaya, crackles, prolonged expiratory phas, symmetrical, tachypnea. ABSENT: rales, rhonchi, wheezes Cardiovascular exam: PRESENT: RRR. ABSENT: diastolic murmur, rubs, systolic murmur Pulses: PRESENT: normal dorsalis pedis pul Vascular exam: PRESENT: normal capillary refill GI/Abdominal exam: PRESENT: normal bowel sounds, soft. ABSENT: distended, guarding, mass, organolmegaly, rebound, tenderness Rectal exam: PRESENT: deferred Extremities exam: PRESENT: full ROM. ABSENT: calf tenderness, clubbing, pedal edema Neurological exam: PRESENT: alert, awake, oriented to person, oriented to place , oriented to time, oriented to situation, CN II-XII grossly intact. ABSENT: motor sensory deficit Psychiatric exam: PRESENT: appropriate affect, normal mood. ABSENT: homicidal ideation, suicidal ideation Skin exam: PRESENT: dry, intact, warm. ABSENT: cyanosis, rash Results Laboratory Results: 08/13/17 03:36 08/13/17 03:36 08/13/17 08/13/17 03:36 03:36 WBC 8.2 RBC 4.37 Hgb 10.2 L Hct 31.4 L MCV 72 L MCH 23.4 L MCHC 32.5 RDW 19.3 H Plt Count 212 Seg Neutrophils % 92.4 H Lymphocytes % 5.9 L Monocytes % 1.6 L Eosinophils % 0.0 Basophils % 0.1 Absolute Neutrophils 7.6 Absolute Lymphocytes 0.5 Absolute Monocytes 0.1 Absolute Eosinophils 0.0 Absolute Basophils 0.0 Sodium 139.0 Chloride 98 Carbon Dioxide 27 Anion Gap 14 BUN 18 Creatinine 0.90 Est GFR ( Amer) > 60 Est GFR (Non-Af Amer) > 60 Glucose 513 H* Calcium 9.4 Impressions: Chest X-Ray 08/12/17 19:02 IMPRESSION: Stable chest. No acute cardiopulmonary changes. Assessment & Plan - Diagnosis (1) Acute bronchitis Is this a current diagnosis for this admission?: Yes Plan: Telemetry bed, flutter valve, albuterol and Atrovent, prednisone, Flonase, empiric antibiotics (2) Acute exacerbation of chronic obstructive pulmonary disease (COPD) Is this a current diagnosis for this admission?: Yes Plan: Please see #1 (3) Type 2 diabetes mellitus Qualifiers: Diabetes mellitus complication status: without complication Diabetes mellitus terminologist insulin use: unspecified terminologist insulin use status Qualified Code(s): E11.9 - Type 2 diabetes mellitus without complications Is this a current diagnosis for this admission?: Yes Plan: Anticipate poor control given additional steroid requirement, home regiment insulin and sliding scale as needed (4) Steroid dependent Is this a current diagnosis for this admission?: Yes Plan: Receiving Solu-Medrol in the emergency room will titrate to prednisone 20 twice daily. - Time Time Spent: 30 to 50 Minutes
[2017-08-13 06:37] LABS: POTASSIUM 4.9 mmol/L (3.6-5.0)
[2017-08-13] MEDS ORDERED: INSULIN LISPRO 100 UNIT/ML 3 ML VIAL SUBCUT SCH (08:00)
[2017-08-13] MEDS ORDERED: IPRATROPIUM/ALBUTEROL 0.5-2.5 MG/3 ML AMPUL NEB PRN (08:30)
[2017-08-13] MEDS ORDERED: INSULIN LISPRO 100 UNIT/ML 3 ML VIAL SUBCUT ONE (09:45)
[2017-08-13] MEDS ORDERED: PREDNISONE 20 MG TABLET PO SCH (10:00)
[2017-08-13] MEDS: AZITHROMYCIN 500 MG in DEXTROSE 5%-WATER 250 ML IV SCH (10:00)
[2017-08-13] MEDS: FLUTICASONE NASAL SPRAY 50 MCG/SPRY 120 SPRAY/16 GM NASL SCH ×2 (10:00→22:00)
[2017-08-13] MEDS: DRONEDARONE HYDROCHLORIDE 400 MG TABLET PO SCH ×2 (10:00→22:00)
[2017-08-13] MEDS: POTASSIUM CHLORIDE 10 MEQ TABLET.SA PO SCH (10:01)
[2017-08-13] MEDS: CEFTRIAXONE 1 GM/D5W RTU 1 GM/50 ML RTUPB IV SCH (10:01)
[2017-08-13] MEDS: GUAIFENESIN 600 MG TABLET.SA PO SCH ×2 (10:01→22:00)
[2017-08-13] MEDS: FUROSEMIDE 20 MG TABLET PO SCH (10:03)
[2017-08-13] MEDS: DOCUSATE SODIUM 100 MG CAPSULE PO SCH ×2 (10:03→17:01)
[2017-08-13] MEDS: INSULIN LISPRO 100 UNIT/ML 3 ML VIAL SUBCUT SCH ×2 (11:21→17:02)
--- NOTE | 2017-08-13 12:10 | PDOC PROGRESS REPORT ---
Subjective Progress Note for:: 08/13/17 Subjective:: Complains of cough and wheezing. Physical Exam Vital Signs: Temp Pulse Resp BP Pulse Ox 97.4 F 77 17 133/64 H 100 08/13/17 04:05 08/13/17 08:27 08/13/17 08:27 08/13/17 04:05 08/13/17 08:27 Intake & Output 08/12/17 08/13/17 08/14/17 06:59 06:59 06:59 Intake Total 350 Output Total 1200 Balance -850 Weight 70.1 kg General appearance: PRESENT: no acute distress Eye exam: PRESENT: conjunctiva pink. ABSENT: scleral icterus Mouth exam: PRESENT: moist, tongue midline Neck exam: ABSENT: JVD Respiratory exam: PRESENT: clear to auscultation yaya. ABSENT: rales, rhonchi, wheezes Cardiovascular exam: PRESENT: RRR. ABSENT: diastolic murmur, rubs, systolic murmur GI/Abdominal exam: PRESENT: normal bowel sounds, soft. ABSENT: distended, guarding, mass, organolmegaly, rebound, tenderness Extremities exam: ABSENT: calf tenderness, clubbing, pedal edema Neurological exam: PRESENT: alert, awake, oriented to person, oriented to place , oriented to time, oriented to situation, CN II-XII grossly intact. ABSENT: motor sensory deficit Psychiatric exam: PRESENT: appropriate affect Skin exam: PRESENT: dry, intact, warm. ABSENT: cyanosis, rash Results Laboratory Results: 08/13/17 03:36 08/13/17 03:36 08/13/17 08/13/17 03:36 03:36 WBC 8.2 RBC 4.37 Hgb 10.2 L Hct 31.4 L MCV 72 L MCH 23.4 L MCHC 32.5 RDW 19.3 H Plt Count 212 Seg Neutrophils % 92.4 H Lymphocytes % 5.9 L Monocytes % 1.6 L Eosinophils % 0.0 Basophils % 0.1 Absolute Neutrophils 7.6 Absolute Lymphocytes 0.5 Absolute Monocytes 0.1 Absolute Eosinophils 0.0 Absolute Basophils 0.0 Sodium 139.0 Potassium 4.9 D Chloride 98 Carbon Dioxide 27 Anion Gap 14 BUN 18 Creatinine 0.90 Est GFR ( Amer) > 60 Est GFR (Non-Af Amer) > 60 Glucose 513 H* Calcium 9.4 Impressions: Chest X-Ray 08/12/17 19:02 IMPRESSION: Stable chest. No acute cardiopulmonary changes. Assessment & Plan - Diagnosis (1) Acute and chronic respiratory failure with hypoxia Is this a current diagnosis for this admission?: Yes Plan: Secondary to acute COPD exacerbation. (2) Acute exacerbation of chronic obstructive pulmonary disease (COPD) Is this a current diagnosis for this admission?: Yes Plan: Patient is still having wheezing. Will DC the prednisone and start on Solu- Medrol. (3) Fever Qualifiers: Fever type: unspecified Qualified Code(s): R50.9 - Fever, unspecified Is this a current diagnosis for this admission?: Yes Plan: Patient has no pneumonia on chest x-ray however given her fever and acute COPD exacerbation I am suspicious that she may have some underlying pneumonia. We will continue with the Rocephin and Zithromax. (4) Coronary artery disease Qualifiers: Coronary Disease-Associated Artery/Lesion type: [place] artery [place] vs. transplanted heart: [place] heart Associated angina: without angina Qualified Code(s): I25.10 - Atherosclerotic heart disease of [place] coronary artery without angina pectoris Is this a current diagnosis for this admission?: Yes Plan: Denies any chest pain. (5) PAF (paroxysmal atrial fibrillation) Is this a current diagnosis for this admission?: Yes (6) Type 2 diabetes mellitus Qualifiers: Diabetes mellitus complication status: without complication Diabetes mellitus skilled nursing insulin use: unspecified skilled nursing insulin use status Qualified Code(s): E11.9 - Type 2 diabetes mellitus without complications Is this a current diagnosis for this admission?: Yes Plan: Continue with Lantus and sliding scale insulin. (7) Do not resuscitate Is this a current diagnosis for this admission?: Yes (8) Hypothyroidism Qualifiers: Hypothyroidism type: unspecified Qualified Code(s): E03.9 - Hypothyroidism , unspecified Is this a current diagnosis for this admission?: Yes - Time Time Spent with patient: 25-34 minutes - Inpatient Certification Medical Necessity: Need Close Monitoring Due to Risk of Patient Decompensation
[2017-08-13] MEDS: METHYLPREDNISOLONE INJ 40 MG/1 ML SDV IV SCH ×2 (13:58→22:01)
[2017-08-13] MEDS: ALPRAZOLAM 0.25 MG TABLET PO PRN (22:00)
[2017-08-13] MEDS: LANSOPRAZOLE 30 MG TAB.RAP.DR PO SCH (22:00)
[2017-08-13] MEDS: ATORVASTATIN CALCIUM 40 MG TABLET PO SCH (22:00)
[2017-08-13] MEDS ORDERED: INSULIN GLARGINE,HUM.REC.ANLOG 1,000 UNIT/10 ML UNIT SUBCUT SCH (22:00)
[2017-08-13] MEDS ORDERED: INSULIN GLARGINE,HUM.REC.ANLOG 300 UNIT/3 ML INSULN.PEN SUBCUT SCH (22:00)
[2017-08-13] MEDS: INSULIN GLARGINE,HUM.REC.ANLOG 300 UNIT/3 ML INSULN.PEN SUBCUT SCH (22:01)
[2017-08-14] MEDS: IPRATROPIUM/ALBUTEROL 0.5-2.5 MG/3 ML AMPUL NEB SCH ×2 (00:43→08:03)
[2017-08-14 05:27] LABS: HEMATOCRIT 31.1 % (36.0-47.0); HEMOGLOBIN 9.9 g/dL (12.0-15.5); HGB HCT DIFFERENCE -1.4; MEAN CORPUSCULAR HEMOGLOBIN 22.7 pg (27.0-33.4); MEAN CORPUSCULAR HGB CONC 31.9 g/dL (32.0-36.0); MEAN CORPUSCULAR VOLUME 71 fl (80-97); RED BLOOD COUNT 4.37 10^6/uL (3.72-5.28); RED CELL DISTRIBUTION WIDTH 19.3 % (11.5-14.0); WHITE BLOOD COUNT 13.4 10^3/uL (4.0-10.5)
[2017-08-14 05:46] LABS: ANION GAP 8 (5-19); BLOOD UREA NITROGEN 25 mg/dL (7-20); CALCIUM 9.3 mg/dL (8.4-10.2); CARBON DIOXIDE 29 mmol/L (22-30); CHLORIDE 101 mmol/L (98-107); CREATININE RESULT 0.86 mg/dL (0.52-1.25); GLUCOSE 322 mg/dL (75-110); POTASSIUM 5.2 mmol/L (3.6-5.0); SODIUM 138.4 mmol/L (137-145)
[2017-08-14 06:10] LABS: BASOPHILS % (MANUAL) 0 % (0-2); EOSINOPHILS % (MANUAL) 0 % (0-6); LYMPHOCYTES % (MANUAL) 2 % (13-45); TOTAL CELLS COUNTED 100
[2017-08-14 06:12] LABS: ANISOCYTOSIS 2+; MICROCYTOSIS 1+; OVALOCYTES 1+; POIKILOCYTOSIS 1+; POLYCHROMASIA SLIGHT; TEAR DROP CELLS SLIGHT; TOXIC GRANULATION 1+
[2017-08-14] MEDS: METHYLPREDNISOLONE INJ 40 MG/1 ML SDV IV SCH ×3 (06:12→22:04)
[2017-08-14] MEDS: HEPARIN SOD (PORCINE) 5,000 UNIT/ML 1 ML SYRINGE SUBCUT SCH ×3 (06:13→22:04)
[2017-08-14] MEDS: INSULIN LISPRO 100 UNIT/ML 3 ML VIAL SUBCUT PRN ×4 (06:58→22:04)
[2017-08-14] MEDS: INSULIN LISPRO 100 UNIT/ML 3 ML VIAL SUBCUT SCH ×3 (08:46→16:15)
[2017-08-14] MEDS: CEFTRIAXONE 1 GM/D5W RTU 1 GM/50 ML RTUPB IV SCH (09:41)
[2017-08-14] MEDS: DRONEDARONE HYDROCHLORIDE 400 MG TABLET PO SCH ×2 (09:42→22:05)
[2017-08-14] MEDS: FUROSEMIDE 20 MG TABLET PO SCH (09:42)
[2017-08-14] MEDS: POTASSIUM CHLORIDE 10 MEQ TABLET.SA PO SCH (09:43)
[2017-08-14] MEDS: GUAIFENESIN 600 MG TABLET.SA PO SCH ×2 (09:43→22:04)
[2017-08-14] MEDS: FLUTICASONE NASAL SPRAY 50 MCG/SPRY 120 SPRAY/16 GM NASL SCH ×2 (09:43→22:39)
[2017-08-14] MEDS: DOCUSATE SODIUM 100 MG CAPSULE PO SCH ×2 (09:43→17:23)
[2017-08-14] MEDS: AZITHROMYCIN 500 MG in DEXTROSE 5%-WATER 250 ML IV SCH (10:16)
[2017-08-14] MEDS ORDERED: ALBUTEROL SULFATE 0.083% NEB 2.5 MG/3 ML AMPUL NEB PRN (11:36)
--- NOTE | 2017-08-14 11:40 | PDOC PROGRESS REPORT ---
Subjective Progress Note for:: 08/14/17 Subjective:: This is a follow-up visit for COPD exacerbation. The patient states that she got up today to go to the bathroom and felt that she did okay with walking. She states that she usually uses oxygen at 2 L at home. She states that she does not feel quite like herself but does feel a little bit better than what she did when she first came in. No acute events overnight. Reason For Visit: COPD EXACERBATION DM PNEUMONIA Physical Exam Vital Signs: Temp Pulse Resp BP Pulse Ox 97.7 F 96 18 106/61 94 08/14/17 03:25 08/14/17 08:03 08/14/17 08:03 08/14/17 03:25 08/14/17 08:03 Intake & Output 08/13/17 08/14/17 08/15/17 06:59 06:59 06:59 Intake Total 350 1011 Output Total 1200 300 Balance -850 711 Weight 70.1 kg 66.6 kg GENERAL: Well-developed, well-nourished appearing elderly white female resting in bed currently in no acute distress. HEART: [Regular rate and rhythm. No murmurs, rubs or gallops.] LUNGS: Coarse breath sounds throughout bilaterally in the upper and lower lobes. Occasional wheezing. The patient sounds tight. ABDOMEN: [Soft, nontender, nondistended with normoactive bowel sounds] EXTREMETIES: [No clubbing, cyanosis or edema. 2+ peripheral pulses bilaterally. ] NEURO: [Awake, alert and oriented 3. Cranial nerves II through XII are grossly intact.] Results Laboratory Results: 08/14/17 04:44 08/14/17 04:44 08/14/17 08/14/17 04:44 04:44 WBC 13.4 H RBC 4.37 Hgb 9.9 L Hct 31.1 L MCV 71 L MCH 22.7 L MCHC 31.9 L RDW 19.3 H Plt Count 243 Seg Neutrophils % Not Reportable Lymphocytes % Not Reportable Monocytes % Not Reportable Eosinophils % Not Reportable Basophils % Not Reportable Absolute Neutrophils Not Reportable Absolute Lymphocytes Not Reportable Absolute Monocytes Not Reportable Absolute Eosinophils Not Reportable Absolute Basophils Not Reportable Sodium 138.4 Potassium 5.2 H Chloride 101 Carbon Dioxide 29 Anion Gap 8 BUN 25 H Creatinine 0.86 Est GFR ( Amer) > 60 Est GFR (Non-Af Amer) > 60 Glucose 322 H Calcium 9.3 Impressions: Chest X-Ray 08/12/17 19:02 IMPRESSION: Stable chest. No acute cardiopulmonary changes. Assessment & Plan - Diagnosis (1) Acute and chronic respiratory failure with hypoxia Is this a current diagnosis for this admission?: Yes Plan: Secondary to underlying COPD exacerbation. Patient is on steroids as well as increase oxygen. She is still quite coarse. Continue antibiotics. (2) Acute exacerbation of chronic obstructive pulmonary disease (COPD) Is this a current diagnosis for this admission?: Yes Plan: Continue Solu-Medrol and antibiotics. I do not see where the patient is on any long acting inhalants. Will begin Advair 250/50. I am going to add on Spiriva. Change her to albuterol nebs. (3) Type 2 diabetes mellitus Qualifiers: Diabetes mellitus complication status: without complication Diabetes mellitus termination clerk insulin use: unspecified termination clerk insulin use status Qualified Code(s): E11.9 - Type 2 diabetes mellitus without complications Is this a current diagnosis for this admission?: Yes Plan: The patient's blood sugars are secondary to diabetes as well as underlying use of IV steroids. Continue Lantus as well as sliding scale insulin. Will likely need to adjust the Lantus. Will obtain another 24 hours of blood sugars considering that the patient has not been on Solu-Medrol for full day. She did have in the 160s. (4) Hypothyroidism Qualifiers: Hypothyroidism type: unspecified Qualified Code(s): E03.9 - Hypothyroidism , unspecified Is this a current diagnosis for this admission?: Yes Plan: Continue Synthroid. (5) Steroid dependent Is this a current diagnosis for this admission?: Yes - Time Time Spent with patient: 15-24 minutes - Inpatient Certification Medical Necessity: Need Close Monitoring Due to Risk of Patient Decompensation
[2017-08-14] MEDS: ALPRAZOLAM 0.25 MG TABLET PO PRN ×2 (13:20→22:04)
[2017-08-14] MEDS: ALBUTEROL SULFATE 0.042% NEB (1.25 MG/3 ML) AMPUL NEB SCH ×2 (14:01→20:29)
[2017-08-14] MEDS: LANSOPRAZOLE 30 MG TAB.RAP.DR PO SCH (22:04)
[2017-08-14] MEDS: MONTELUKAST SODIUM 10 MG TABLET PO SCH (22:04)
[2017-08-14] MEDS: ATORVASTATIN CALCIUM 40 MG TABLET PO SCH (22:04)
[2017-08-14] MEDS: FLUOXETINE HCL 20 MG CAPSULE PO SCH (22:04)
[2017-08-14] MEDS: FLUTICASONE/SALMETEROL DISKUS 250-50 MCG/DOSE IH SCH (22:05)
[2017-08-14] MEDS: INSULIN GLARGINE,HUM.REC.ANLOG 300 UNIT/3 ML INSULN.PEN SUBCUT SCH (22:05)
[2017-08-15] MEDS: ALBUTEROL SULFATE 0.042% NEB (1.25 MG/3 ML) AMPUL NEB SCH ×4 (01:55→20:39)
[2017-08-15] MEDS: HEPARIN SOD (PORCINE) 5,000 UNIT/ML 1 ML SYRINGE SUBCUT SCH ×3 (05:49→21:18)
[2017-08-15] MEDS: METHYLPREDNISOLONE INJ 40 MG/1 ML SDV IV SCH ×3 (05:49→21:21)
[2017-08-15] MEDS: FLUTICASONE NASAL SPRAY 50 MCG/SPRY 120 SPRAY/16 GM NASL SCH ×2 (09:25→21:22)
[2017-08-15] MEDS: AZITHROMYCIN 250 MG TABLET PO SCH (09:25)
[2017-08-15] MEDS: FUROSEMIDE 20 MG TABLET PO SCH (09:25)
[2017-08-15] MEDS: TIOTROPIUM BROMIDE DPI 5 CAP/KIT (18 MCG/CAP) IH SCH (09:25)
[2017-08-15] MEDS: GUAIFENESIN 600 MG TABLET.SA PO SCH ×2 (09:25→21:21)
[2017-08-15] MEDS: DRONEDARONE HYDROCHLORIDE 400 MG TABLET PO SCH ×2 (09:25→21:22)
[2017-08-15] MEDS: DOCUSATE SODIUM 100 MG CAPSULE PO SCH ×2 (09:25→17:54)
[2017-08-15] MEDS: INSULIN LISPRO 100 UNIT/ML 3 ML VIAL SUBCUT PRN ×5 (09:25→21:39)
[2017-08-15] MEDS: INSULIN LISPRO 100 UNIT/ML 3 ML VIAL SUBCUT SCH ×3 (09:25→17:58)
[2017-08-15] MEDS: FLUTICASONE/SALMETEROL DISKUS 250-50 MCG/DOSE IH SCH ×2 (09:25→21:22)
[2017-08-15] MEDS: CEFTRIAXONE 1 GM/D5W RTU 1 GM/50 ML RTUPB IV SCH (09:26)
[2017-08-15] MEDS ORDERED: INSULIN LISPRO 100 UNIT/ML 3 ML VIAL SUBCUT ONE (12:15)
--- NOTE | 2017-08-15 16:30 | PDOC PROGRESS REPORT ---
Subjective Progress Note for:: 08/15/17 Subjective:: This is a follow-up visit for COPD exacerbation. The patient states that she got up today to go to the bathroom and felt that she did okay with walking. She states that she does not feel quite like herself but does feel a little bit better than what she did when she first came in. Despite this feeling, the patient asks if she can go home today. No acute events overnight. Reason For Visit: COPD EXACERBATION DM PNEUMONIA Physical Exam Vital Signs: Temp Pulse Resp BP Pulse Ox 98.3 F 77 16 106/65 98 08/15/17 07:58 08/15/17 13:55 08/15/17 13:55 08/15/17 07:58 08/15/17 13:55 Intake & Output 08/14/17 08/15/17 08/16/17 06:59 06:59 06:59 Intake Total 1011 1237 Output Total 300 1400 Balance 711 -163 Weight 66.6 kg 66.4 kg GENERAL: Well-developed, well-nourished appearing elderly white female resting in bed currently in no acute distress. HEART: Regular rate and rhythm. No murmurs, rubs or gallops. LUNGS: Coarse breath sounds throughout bilaterally in the upper and lower lobes. Expiratory wheezing. The patient sounds tight. ABDOMEN: Soft, nontender, nondistended with normoactive bowel sounds EXTREMETIES: No clubbing, cyanosis or edema. 2+ peripheral pulses bilaterally. NEURO: Awake, alert. Cranial nerves II through XII are grossly intact. Results Laboratory Results: 08/14/17 04:44 08/14/17 04:44 08/15/17 12:00 Stool Occult Blood NEGATIVE Impressions: Chest X-Ray 08/12/17 19:02 IMPRESSION: Stable chest. No acute cardiopulmonary changes. Assessment & Plan - Diagnosis (1) Acute and chronic respiratory failure with hypoxia Is this a current diagnosis for this admission?: Yes Plan: Secondary to underlying COPD exacerbation. Patient is on steroids as well as increase oxygen. She is still quite coarse. Continue antibiotics. Add a BNP to labs tomorrow. Repeat chest x-ray. (2) Acute exacerbation of chronic obstructive pulmonary disease (COPD) Is this a current diagnosis for this admission?: Yes Plan: Continue Solu-Medrol and antibiotics. I do not see where the patient is on any long acting inhalants. Continue Advair 250/50, Spiriva, albuterol nebs. Recheck chest x-ray in the a.m. (3) Type 2 diabetes mellitus Qualifiers: Diabetes mellitus complication status: without complication Diabetes mellitus termite technician insulin use: unspecified [facility] insulin use status Qualified Code(s): E11.9 - Type 2 diabetes mellitus without complications Is this a current diagnosis for this admission?: Yes Plan: The patient's blood sugars are secondary to diabetes as well as underlying use of IV steroids. Increase Lantus to 45 units subcu nightly. Continue sliding scale insulin and mealtime insulin. Patient's blood sugars have been between 405 100 today despite extra doses of insulin. Unfortunately I do not think I can decrease her steroids because she just sounds so awful. (4) Hypothyroidism Qualifiers: Hypothyroidism type: unspecified Qualified Code(s): E03.9 - Hypothyroidism , unspecified Is this a current diagnosis for this admission?: Yes Plan: Continue Synthroid. (5) Steroid dependent Is this a current diagnosis for this admission?: Yes - Time Time Spent with patient: 15-24 minutes
[2017-08-15] MEDS ORDERED: FUROSEMIDE INJ/PF 20 MG/2 ML SDV IV ONE (20:01)
[2017-08-15] MEDS: INSULIN GLARGINE,HUM.REC.ANLOG 300 UNIT/3 ML INSULN.PEN SUBCUT SCH (21:19)
[2017-08-15] MEDS: LANSOPRAZOLE 30 MG TAB.RAP.DR PO SCH (21:21)
[2017-08-15] MEDS: FLUOXETINE HCL 20 MG CAPSULE PO SCH (21:21)
[2017-08-15] MEDS: ATORVASTATIN CALCIUM 40 MG TABLET PO SCH (21:21)
[2017-08-15] MEDS: MONTELUKAST SODIUM 10 MG TABLET PO SCH (21:21)
[2017-08-16] MEDS: ALBUTEROL SULFATE 0.042% NEB (1.25 MG/3 ML) AMPUL NEB SCH ×4 (01:57→20:29)
[2017-08-16] MEDS: METHYLPREDNISOLONE INJ 40 MG/1 ML SDV IV SCH ×2 (06:05→21:18)
[2017-08-16] MEDS: HEPARIN SOD (PORCINE) 5,000 UNIT/ML 1 ML SYRINGE SUBCUT SCH ×3 (06:05→21:18)
[2017-08-16] MEDS: INSULIN LISPRO 100 UNIT/ML 3 ML VIAL SUBCUT SCH ×3 (09:03→17:46)
[2017-08-16] MEDS: INSULIN LISPRO 100 UNIT/ML 3 ML VIAL SUBCUT PRN ×4 (09:04→21:18)
[2017-08-16] MEDS: TIOTROPIUM BROMIDE DPI 5 CAP/KIT (18 MCG/CAP) IH SCH (09:05)
[2017-08-16] MEDS: GUAIFENESIN 600 MG TABLET.SA PO SCH ×2 (09:07→21:15)
[2017-08-16] MEDS: AZITHROMYCIN 250 MG TABLET PO SCH (09:07)
[2017-08-16] MEDS: DRONEDARONE HYDROCHLORIDE 400 MG TABLET PO SCH ×2 (09:07→21:19)
[2017-08-16] MEDS: DOCUSATE SODIUM 100 MG CAPSULE PO SCH ×2 (09:08→17:46)
[2017-08-16] MEDS: FLUTICASONE/SALMETEROL DISKUS 250-50 MCG/DOSE IH SCH ×2 (09:09→21:16)
[2017-08-16] MEDS: FLUTICASONE NASAL SPRAY 50 MCG/SPRY 120 SPRAY/16 GM NASL SCH ×2 (09:09→21:17)
[2017-08-16] MEDS: CEFTRIAXONE 1 GM/D5W RTU 1 GM/50 ML RTUPB IV SCH (09:10)
[2017-08-16] MEDS: FUROSEMIDE 20 MG TABLET PO SCH (09:22)
--- NOTE | 2017-08-16 09:37 | RADIOLOGY REPORT (SQ) ---
EXAM DESCRIPTION: CHEST PA/LAT COMPLETED DATE/TIME: 08/16/2017 8:36 am REASON FOR STUDY: copd exacerbation COMPARISON: PET-CT 12/29/2016 CT chest 12/20/2016 Chest films 03/31/2017, 09/17/2016 EXAM PARAMETERS: NUMBER OF VIEWS: two views TECHNIQUE: Digital Frontal and Lateral radiographic views of the chest acquired. RADIATION DOSE: NA LIMITATIONS: none FINDINGS: LUNGS AND PLEURA: No acute findings. Stable nodule about 1 cm in size along the right minor fissure. Stable volume loss left hemithorax w ith scarring in the perihilar region. No pleural effusions. No pneumothorax. MEDIASTINUM AND HILAR STRUCTURES: No masses or contour abnormalities. HEART AND VASCULAR STRUCTURES: Heart normal size. No evidence for failure. BONES: Osteoporotic. T11 compression deformity with 25 to 50% loss of height, new compared to CT jeanine st 12/20/2016. HARDWARE: None in the chest. OTHER: No other significant finding. IMPRESSION: Stable right lung nodule near the minor fissure and post therapeutic changes left perihi lar region Subacute compression deformity at T11 TECHNICAL DOCUMENTATION: JOB ID: [id number]- All Rights Reserved
--- NOTE | 2017-08-16 15:03 | PDOC PROGRESS REPORT ---
Subjective Progress Note for:: 08/16/17 Subjective:: Patient is in good spirits and states she feels well and wants to go home. However, she reluctantly admits that with minimal exertion she still becomes shortness of breath and starts wheezing again. She also reports that at rest her respiratory status seems to be back to baseline so overall she continues to make improvement. She denies chest pain, fever, chills, nausea, vomiting, diarrhea. ROS: All systems reviewed, see above, remaining systems negative. Reason For Visit: COPD EXACERBATION DM PNEUMONIA Physical Exam Vital Signs: Temp Pulse Resp BP Pulse Ox 98.0 F 72 16 115/53 L 98 08/16/17 11:14 08/16/17 13:45 08/16/17 13:45 08/16/17 11:14 08/16/17 13:45 Intake & Output 08/15/17 08/16/17 08/17/17 06:59 06:59 06:59 Intake Total 1237 1120 Output Total 1400 2 Balance -163 1118 Weight 66.4 kg 66.5 kg General appearance: PRESENT: no acute distress, well-developed, well-nourished Head exam: PRESENT: atraumatic Eye exam: ABSENT: conjunctival injection, scleral icterus Mouth exam: PRESENT: moist Neck exam: PRESENT: full ROM. ABSENT: tracheal deviation Respiratory exam: PRESENT: crackles, prolonged expiratory phas, rhonchi - Left base, wheezes - Expiratory on the left Cardiovascular exam: PRESENT: RRR, systolic murmur - Soft probably 2/6 at the apex Pulses: PRESENT: normal radial pulses GI/Abdominal exam: PRESENT: normal bowel sounds, soft. ABSENT: tenderness Extremities exam: ABSENT: pedal edema, tenderness - No palpable cords Neurological exam: PRESENT: alert, awake, oriented to person, oriented to place , oriented to time, oriented to situation Psychiatric exam: PRESENT: appropriate affect, normal mood Skin exam: PRESENT: warm Results Laboratory Results: 08/14/17 04:44 08/14/17 04:44 08/16/17 03:59 NT-Pro-B Natriuret Pep 1690 H Impressions: Chest X-Ray 08/16/17 08:00 IMPRESSION: Stable right lung nodule near the minor fissure and post therapeutic changes left perihilar region Subacute compression deformity at T11 Assessment & Plan - Diagnosis (1) Acute bronchitis Qualifiers: Bronchitis organism: unspecified organism Qualified Code(s): J20.9 - Acute bronchitis, unspecified Is this a current diagnosis for this admission?: Yes Plan: Organism unknown. She is not producing an adequate sputum sample for culture. Blood cultures show no growth. At risk for gram-negative organisms due to fixed lung disease. (2) Acute exacerbation of chronic obstructive pulmonary disease (COPD) Is this a current diagnosis for this admission?: Yes Plan: Probable bacterial bronchitis; continue current antibiotics. Continue pulmonary toilet and she appears to have made enough progress at this point that we can cut back on her steroids to just twice daily, (3) Type 2 diabetes mellitus Qualifiers: Diabetes mellitus complication status: without complication Diabetes mellitus intermediate manager insulin use: unspecified intermediate manager insulin use status Qualified Code(s): E11.9 - Type 2 diabetes mellitus without complications Is this a current diagnosis for this admission?: Yes Plan: Last hemoglobin A1c in our record was December 2015 equals 7.1%; blood sugars poorly controlled here due to high-dose steroids. Continue to cover with high- dose sliding scale, I am reluctant to increase her long-acting yet again while also concomitantly decreasing her steroids. (4) Oxygen dependent Is this a current diagnosis for this admission?: Yes Plan: Normally wears 2 L continuous at home. (5) Steroid dependent Is this a current diagnosis for this admission?: Yes - Time Time Spent with patient: 25-34 minutes Medications reviewed and adjusted accordingly: Yes - Plan Summary Plan Summary: Possibly home tomorrow if she continues to progress.
[2017-08-16] MEDS: LANSOPRAZOLE 30 MG TAB.RAP.DR PO SCH (21:14)
[2017-08-16] MEDS: ATORVASTATIN CALCIUM 40 MG TABLET PO SCH (21:14)
[2017-08-16] MEDS: MONTELUKAST SODIUM 10 MG TABLET PO SCH (21:15)
[2017-08-16] MEDS: FLUOXETINE HCL 20 MG CAPSULE PO SCH (21:17)
[2017-08-16] MEDS: INSULIN GLARGINE,HUM.REC.ANLOG 300 UNIT/3 ML INSULN.PEN SUBCUT SCH (21:18)
[2017-08-17] MEDS: ALBUTEROL SULFATE 0.042% NEB (1.25 MG/3 ML) AMPUL NEB SCH ×3 (02:09→14:19)
[2017-08-17] MEDS: HEPARIN SOD (PORCINE) 5,000 UNIT/ML 1 ML SYRINGE SUBCUT SCH ×2 (05:15→13:39)
[2017-08-17] MEDS: INSULIN LISPRO 100 UNIT/ML 3 ML VIAL SUBCUT PRN ×2 (07:51→12:24)
[2017-08-17] MEDS: INSULIN LISPRO 100 UNIT/ML 3 ML VIAL SUBCUT SCH ×2 (07:51→12:24)
[2017-08-17] MEDS: METHYLPREDNISOLONE INJ 40 MG/1 ML SDV IV SCH (10:18)
[2017-08-17] MEDS: AZITHROMYCIN 250 MG TABLET PO SCH (10:18)
[2017-08-17] MEDS: FLUTICASONE NASAL SPRAY 50 MCG/SPRY 120 SPRAY/16 GM NASL SCH (10:18)
[2017-08-17] MEDS: DRONEDARONE HYDROCHLORIDE 400 MG TABLET PO SCH (10:18)
[2017-08-17] MEDS: DOCUSATE SODIUM 100 MG CAPSULE PO SCH (10:19)
[2017-08-17] MEDS: GUAIFENESIN 600 MG TABLET.SA PO SCH (10:19)
[2017-08-17] MEDS: FUROSEMIDE 20 MG TABLET PO SCH (10:19)
[2017-08-17] MEDS: CEFTRIAXONE 1 GM/D5W RTU 1 GM/50 ML RTUPB IV SCH (10:20)
[2017-08-17] MEDS: FLUTICASONE/SALMETEROL DISKUS 250-50 MCG/DOSE IH SCH (10:20)
[2017-08-17] MEDS: TIOTROPIUM BROMIDE DPI 5 CAP/KIT (18 MCG/CAP) IH SCH (10:21)
[2017-08-17 12:50] VITALS: BP 100/46
--- NOTE | 2017-08-17 15:06 | PDOC DISCHARGE SUMMARY ---
General - Admit/Disc Date/PCP Admission Date/Primary Care Provider: 08/12/17 22:27 KD CISNEROS PA-C Discharge Date: 08/17/17 - Discharge Diagnosis (1) Acute and chronic respiratory failure with hypoxia Is this a current diagnosis for this admission?: Yes Summary: Continue home dose of oxygen. Continue various nebulizers and inhalers. (2) Acute exacerbation of chronic obstructive pulmonary disease (COPD) Is this a current diagnosis for this admission?: Yes (3) Type 2 diabetes mellitus Is this a current diagnosis for this admission?: Yes Summary: Adjust Lantus as steroid taper changes. Continue diabetic diet (4) Hypothyroidism Is this a current diagnosis for this admission?: Yes (5) Steroid dependent Is this a current diagnosis for this admission?: Yes - Additional Information Resuscitation Status: Do Not Resuscitate Home Medications: Acetaminophen [Tylenol] 650 mg PO Q4HP PRN MDD 2600 MG 03/29/17 Atorvastatin Calcium [Lipitor 40 mg Tablet] 40 mg PO QHS 03/29/17 Docusate Sodium [Colace 100 mg Capsule] 100 mg PO BID 03/29/17 Dronedarone Hydrochloride [Multaq 400 mg Tablet] 400 mg PO Q12 03/29/17 Ergocalciferol (Vitamin D2) [Vitamin D2] 50,000 unit PO MO@1000 03/29/17 Fluoxetine HCl [Prozac 20 mg Capsule] 20 mg PO QHS 03/29/17 Furosemide [Lasix] 20 mg PO DAILY 03/29/17 Levothyroxine Sodium [Synthroid 0.05 mg Tablet] 50 mcg PO Q6AM 03/29/17 Montelukast Sodium [Singulair 10 mg Tablet] 10 mg PO QHS 03/29/17 Pantoprazole Sodium [Protonix] 40 mg PO QHS 03/29/17 Potassium Chloride 10 meq PO DAILY 03/29/17 Insulin Aspart [Novolog Flexpen] 10 unit SUBCUT AC 05/06/17 Alprazolam [Xanax 0.25 mg Tablet] 0.25 mg PO BIDP PRN 05/07/17 Loperamide HCl [Imodium A-D] 4 mg PO ASDIR PRN MDD 8 MG 05/07/17 Melatonin 1 mg PO HSP PRN 05/07/17 Albuterol Sulfate [Ventolin 0.083% Neb 2.5 mg/3 mL Ampul] 2.5 mg NEB Q6H PRN Ascorbic Acid [Vitamin C] 500 mg PO BID 08/13/17 Bismuth Subsalicylate [Pepto-Bismol Susp 524 mg/30 ml Udcup] 1 dose PO Q4H PRN 08/13/17 Calcium Carbonate/Vitamin D3 [Calcium 500-Vit D3 400 Tablet] 1 tab PO BID Ferrous Sulfate 1 tab PO BID 08/13/17 Glycopyrrolate/Formoterol Fum [Bevespi Aerosphere Inhaler] 4.8 mcg IH BID Guaifenesin/D-Methorphan Hb [Robitussin-Dm Syrup 10 ml Udcup] 10 ml PO Q4H PRN 08/13/17 Doxycycline Hyclate 100 mg PO Q12 #10 capsule 08/17/17 Fluticasone Propionate [Flonase Nasal [place] 50 Mcg/[place] 16 gm] 2 spray NASL Q12 #0 spray.pump 08/17/17 Fluticasone/Salmeterol [Advair 250-50 Diskus 14 Dose/Diskus] 1 inh IH Q12 #1 inhaler 08/17/17 Guaifenesin [Mucinex Sr 600 mg Tablet.sa] 1,200 mg PO Q12 #10 tablet.sa Insulin Glargine,Hum.rec.anlog [Lantus Insulin 100 Unit/mL] 45 unit SUBCUT QHS # 1 insuln.pen 08/17/17 Prednisone 20 mg PO ASDIR PRN #15 tablet 08/17/17 Tiotropium [place] [Spiriva Handihaler 5 Cap/Kit (18 Mcg/Cap)] 1 cap IH DAILY # 1 kit 08/17/17 History of Present Illness History of Present Illness: JATINDER RODRIGUEZ is a 82 year old white female with a past medical history of COPD who presented to the service with COPD exacerbation. Please see the H& P below for details of her admission as outlined by the admitting physician. Admission Date/PCP: 08/12/17 22:27 KD CISNEROS PA-C Patient complains of: Shortness of breath History of Present Illness: JATINDER RODRIGUEZ is a 82 year old female with a past medical history of insulin-dependent diabetes, oxygen and steroid-dependent COPD, asthma, remote lung cancer status post chemo and radiation, cancer free for 2 years. Patient is a long-term assisted living resident and presents with malaise, fatigue, 3 days of cough and white sputum. Today developed a temperature of 101.9 and brought to the emergency room for evaluation. She is found to have shortness of breath, leukocytosis, elevated BNP, uncontrolled hyperglycemia and referred to the hospitalist for admission. She denies recent change in medications, chest pain palpitations nausea vomiting, rhinorrhea or GERD. Hospital Course Hospital Course: Patient was admitted to the hospital and placed on Solu-Medrol IV every 8 hours. She was also started on empiric antibiotics. The patient remained quite tight and wheezy over the course of several days. We tried at one point to switch her to p.o. prednisone the patient seemed to get worse. She is placed back on IV Solu-Medrol and did very well over the last 72 hours of her hospital stay. On the day of discharge the patient felt much better and looked much better. Chest x-ray done prior to discharge showed stable right lung nodule near the minor fissure and post therapeutic changes of left perihilar region subacute compression deformity at T11. urine cultures showed mixed urogenital amanda and no evidence of an acute urinary tract infection. Patient has was started on Advair, Spiriva and continued on AA nebs. She is being sent back to her residential facility with prescriptions for these medications. In terms of the patient's diabetes, her blood sugars remained high while on the Solu-Medrol. Her blood sugars to come down finally around 300 as her Solu- Medrol was decreased. Her Lantus was increased up to 45 units from 34 units to try and accommodate for the uncontrolled blood sugars. Patient will be on oral prednisone as an outpatient. As she tapers off of the prednisone her insulin will likely need to be adjusted. She will need to follow-up with her primary care physician within a week. Physical Exam Vital Signs: Temp Pulse Resp BP Pulse Ox 97.5 F 77 18 100/46 L 98 08/17/17 08:38 08/17/17 14:17 08/17/17 14:17 08/17/17 08:38 08/17/17 14:17 Intake & Output 08/16/17 08/17/17 08/18/17 06:59 06:59 06:59 Intake Total 1120 1002 Output Total 2 320 Balance 1118 682 Weight 66.5 kg 66.5 kg GENERAL: Well-developed, well-nourished appearing elderly white female resting in in her recliner currently in no acute distress. The patient is reading the paper she looks so good and feels much better HEART: Regular rate and rhythm. No murmurs, rubs or gallops. LUNGS: Diminished breath sounds at the bases bilaterally otherwise clear to auscultation with equal rise and fall of the chest. ABDOMEN: Soft, nontender, nondistended with normoactive bowel sounds EXTREMETIES: No clubbing, cyanosis or edema. 2+ peripheral pulses bilaterally. NEURO: Awake, alert. Cranial nerves II through XII are grossly intact. Results Laboratory Results: 08/14/17 04:44 08/14/17 04:44 08/16/17 03:59 NT-Pro-B Natriuret Pep 1690 H Impressions: Chest X-Ray 08/16/17 08:00 IMPRESSION: Stable right lung nodule near the minor fissure and post therapeutic changes left perihilar region Subacute compression deformity at T11 Qualifiers [facility]INT BEING DISCHARGED WITH ANY OF THE FOLLOWING DIAGNOSIS?: No Plan Time Spent: Less than 30 Minutes
== END 2017-08-17 18:03 | DRG 189 ==
LOC: ER 17:17 → EH 22:27 → 4N 08-13 01:00
PROVIDERS: ADMIT Internal Medicine; ATTEND Internal Medicine
DX: J96.21 Acute and chronic respiratory failure with hypoxia (principal); C34.90 Malignant neoplasm of unspecified part of unspecified bronchus or lung; J44.1 Chronic obstructive pulmonary disease with (acute) exacerbation; J44.0 Chronic obstructive pulmonary disease with (acute) lower respiratory infection; J20.9 Acute bronchitis, unspecified; Z66 Do not resuscitate; I48.0 Paroxysmal atrial fibrillation; I50.9 Heart failure, unspecified; I25.10 Atherosclerotic heart disease of native coronary artery without angina pectoris; E78.00 Pure hypercholesterolemia, unspecified; I11.0 Hypertensive heart disease with heart failure; E03.9 Hypothyroidism, unspecified; E11.65 Type 2 diabetes mellitus with hyperglycemia; Z79.4 Long term (current) use of insulin; Z79.51 Long term (current) use of inhaled steroids; Z79.899 Other long term (current) drug therapy; Z87.891 Personal history of nicotine dependence; Z99.81 Dependence on supplemental oxygen
CPT/HCPCS: 36415; 71010; 71020; 80048; 80053; 81001; 82272; 82550; 82553; 82803; 82962; 83605; 83880; 84484; 85025; 85610; 87040; 87086; 93005; 93010; 94640; 94667; 94668; 94799; 96374; 99285; J0456; J0696; J1644; J1815; J1940; J1956; J2920; J2930; J3490; J7060; J7512; J7620

== ENCOUNTER 2017-08-27 03:22 | Emergency (ER) | payer MEDICARE, MEDICAID ==
[2017-08-27] MEDS ORDERED: ACETAMINOPHEN 325 MG TABLET PO ONE (03:30)
--- NOTE | 2017-08-27 04:11 | RADIOLOGY REPORT (SQ) ---
EXAM DESCRIPTION: CT HEAD WITHOUT CLINICAL HISTORY: 82 years Female, trauma COMPARISON: None. TECHNIQUE: This exam was performed according to our departmental dose-optimization program, which includes automated exposure control, adjustment of the mA and/or kV according to patient size and/or use of iterative reconstruction technique. FINDINGS: Moderate cerebral volume loss, intracranial atherosclerosis, mild to moderate white matter microangiopathy, moderate right-sided nasal septal deviation, small moderate left supraorbital/frontal scalp swelling-hematoma, minimal air-fluid level of the left maxillary sinus. No evidence of intracranial hemorrhage or infarct. No mass, mass effect, or midline shift. IMPRESSION: Scalp swelling. Minimal fluid in the left maxillary sinus. Else, no acute intracranial findings.
--- NOTE | 2017-08-27 04:14 | RADIOLOGY REPORT (SQ) ---
EXAM DESCRIPTION: CT CERVICAL SPINE WITHOUT CLINICAL HISTORY: 82 years Female, trauma COMPARISON: CT, thoracic spine, report only, 05/08/2017. TECHNIQUE: This exam was performed according to our departmental dose-optimization program, which includes automated exposure control, adjustment of the mA and/or kV according to patient size and/or use of iterative reconstruction technique. FINDINGS: Mild/moderate disc desiccation and spondylosis worst at the C6-C7 level with mild/moderate left C7 bony foraminal stenosis, bony demineralization, moderate lateral axilla osteoarthritis, normal alignment and curvature, minimal C7 vertebral height loss, minimal anterior T1 vertebral height loss, atherosclerosis, and unremarkable inferior cranium and upper thorax. IMPRESSION: Minimal T1 anterior vertebral wedging and minimal C7 vertebral height loss of indeterminate age.
--- NOTE | 2017-08-27 04:20 | RADIOLOGY REPORT (SQ) ---
EXAM DESCRIPTION: CT FACIAL AREA WITHOUT CLINICAL HISTORY: 82 years Female, trauma COMPARISON: None. TECHNIQUE: This exam was performed according to our departmental dose-optimization program, which includes automated exposure control, adjustment of the mA and/or kV according to patient size and/or use of iterative reconstruction technique. FINDINGS: 1.0 cm mucous occlusion of the left ostiomeatal unit at the ostium, minimal posterior left maxillary mucosal thickening/fluid, patent right ostiomeatal unit, moderate dextroconvexity of the nasal septum, moderate left liliana bullosa, few right mastoid fluid-filled air cells, mucus occlusion of a left ethmoid air cells, moderate left supraorbital/frontal scalp swelling. IMPRESSION: Moderate left supraorbital/frontal scalp swelling. Minimal left maxillary sinusitis. No significant fracture.
--- NOTE | 2017-08-27 04:59 | ER Document Report ---
ED General - General Chief Complaint: Fall Stated Complaint: FALL,FACIAL INJURY Time Seen by Provider: 08/27/17 03:26 Notes: Patient is a pleasant 82-year-old female who presents with complaint of injury to the left side of her face. Patient says she was walking and tripped over her oxygen cord. She fell hitting left side of her face. She says she just has minimal pain over her face. She denies any pain with movement of her eye. She denies blurred vision. She denies vomiting. She denies severe headache. She is on blood thinners. She denies any injuries to her extremities or back. She has no other complaints at this time. TRAVEL OUTSIDE OF THE [place] IN LAST 30 DAYS: No - Related Data Allergies/Adverse Reactions: No Known Allergies Allergy (Verified 08/12/17 18:52) Past Medical History - Social History Smoking Status: Unknown if Ever Smoked Frequency of alcohol use: None Drug Abuse: None Family History: COPD, Malignancy Patient has suicidal ideation: No Patient has homicidal ideation: No - Past Medical History Cardiac Medical History: Reports: Hx Congestive Heart Failure, Hx Coronary Artery Disease, Hx Hypercholesterolemia, Hx Hypertension Denies: Hx DVT, Hx Pulmonary Embolism Pulmonary Medical History: Reports: Hx COPD Denies: Hx Asthma, Hx Sleep Apnea Neurological Medical History: Denies: Hx Seizures Endocrine Medical History: Reports: Hx Diabetes Mellitus Type 2, Hx Hypothyroidism. Denies: Hx Hyperthyroidism Renal/ Medical History: Denies: Hx Peritoneal Dialysis Malignancy Medical History: Reports: Hx Lung Cancer GI Medical History: Denies: Hx Cirrhosis, Hx Gastroesophageal Reflux Disease, Hx Hepatitis Psychiatric Medical History: Denies: Hx Depression Infectious Medical History: Denies: Hx C-Diff, Hx Hepatitis, Hx MRSA Past Surgical History: Reports: Hx Appendectomy, Hx Hysterectomy - Immunizations Hx Diphtheria, Pertussis, Tetanus Vaccination: Yes Review of Systems - Review of Systems Notes: My Normal Review Basic REVIEW OF SYSTEMS: CONSTITUTIONAL : Denies fever, chills, or sweats. Denies recent illness. EENT: Mild facial pain. CARDIOVASCULAR: Denies chest pain. RESPIRATORY: Denies cough, cold, or chest congestion. Denies shortness of breath, difficulty breathing, or wheezing. GASTROINTESTINAL: Denies abdominal pain. Denies nausea, vomiting, or diarrhea. Denies constipation. Last BM: MUSCULOSKELETAL: Denies neck or back pain or joint pain or swelling. SKIN: Denies rash or skin lesions. HEMATOLOGIC : Denies taking blood thinning medications. NEUROLOGICAL: Denies altered mental status or loss of consciousness. Denies headache. Denies weakness or paralysis or loss of use of either side. Denies problems with gait or speech. Denies sensory or motor loss. ALL OTHER SYSTEMS REVIEWED AND NEGATIVE. Physical Exam - Notes Notes: General Appearance: Well nourished, alert, cooperative, no acute distress, no obvious discomfort. Well appearing. Vitals: reviewed, See vital signs table. Head: Obvious swelling over left side of face extends from the bridge of the patient's nose and over across the left orbit and up into the left forehead. No crepitance to palpation. She is able to open and close her jaw without pain. Eyes: PERRL, EOMI, Conjuctiva clear. No hyphema. Patient has full extraocular motion without pain. Mouth: No decreasd moisture Nares: No septal hematoma. Throat: No tonsillar inflammation, No airway obstruction, No lymphadenopathy Neck: Supple, no neck tenderness Lungs: No wheezing, No rales, No rhonci, No accessory muscle use, good air exchange bilaterally. Heart: Normal rate, Regular rythm, No murmur, no rub Abdomen: Normal BS, soft, No rigidity, No abdominal tenderness, No guarding, no rebound, no abdominal masses, no organomegaly Back: No tenderness palpation of thoracic or lumbar spine. No step-offs or deformities. Extremities: strength 5/5 in all extremities, good pulses in all extremities, no swelling or tenderness in the extremities, no edema. Skin: warm, dry, appropriate color, no rash Neuro: speech clear, oriented x 3, normal affect, responds appropriately to questions. Cranial nerves II through XII are intact. Distal sensation intact. Patient moves all extremities without difficulty. Course - Re-evaluation Re-evalutation: 08/27/17 05:12 CT scans obtained next amount of swelling and bruising to the patient's face. Despite all this bruising patient denied having any significant pain. She would only allow me to give her a little bit of Tylenol. She actually did not appear to be being a distress was very comfortable. CT scans were obtained and were surprisingly negative for any fractures. Patient is neurologically appropriate and awake alert very pleasant exam. Feel she is safe to be discharged home. I informed her that she still should have a low threshold to return to ER if she has severe headache, vomiting, or feels unwell. Patient agrees with plan and will be discharged home. Dictation of this chart was performed using voice recognition software; therefore, there may be some unintended grammatical errors. Discharge - Discharge Clinical Impression: Fall Qualifiers: Encounter type: initial encounter Qualified Code(s): W19.XXXA - Unspecified fall, initial encounter Facial contusion Qualifiers: Encounter type: initial encounter Qualified Code(s): S00.83XA - Contusion of other part of head, initial encounter Condition: Good Disposition: HOME, SELF-CARE Additional Instructions: Your CT scans of your face, neck, and head did not show any fractures or intracranial bleeding. It is always still possible that an individual can have delayed bleeding in their head after hitting their head. Although this is rare, you still need to keep your eye out for concerning symptoms such as vomiting, sever headache, confusion or are feeling unwell. Please return to the ER immediately if you have any of those symptoms. Please take Tylenol for pain and use icepacks to help reduce swelling to your face. Referrals: KD CISNEROS PA-C [Primary Care Provider] - Follow up in 3-5 days
[2017-08-27 07:44] VITALS: BP 121/59
== END 2017-08-27 07:40 | disposition home or self-care (01) ==
LOC: ER 03:22
DX: S00.83XA Contusion of other part of head, initial encounter (principal); S09.93XA Unspecified injury of face, initial encounter; W01.10XA Fall on same level from slipping, tripping and stumbling with subsequent striking against unspecified object, initial encounter; Y92.009 Unspecified place in unspecified non-institutional (private) residence as the place of occurrence of the external cause; I50.9 Heart failure, unspecified; I25.10 Atherosclerotic heart disease of native coronary artery without angina pectoris; E78.00 Pure hypercholesterolemia, unspecified; I11.0 Hypertensive heart disease with heart failure; J44.9 Chronic obstructive pulmonary disease, unspecified; E11.9 Type 2 diabetes mellitus without complications; E03.9 Hypothyroidism, unspecified; Z99.81 Dependence on supplemental oxygen; Z85.118 Personal history of other malignant neoplasm of bronchus and lung
CPT/HCPCS: 99285; 70450; 70486; 72125; A9270

== ENCOUNTER 2017-09-28 12:51 | Inpatient (IN) | payer MEDICARE, MEDICAID ==
[2017-09-28] MEDS ORDERED: IPRATROPIUM/ALBUTEROL 0.5-2.5 MG/3 ML AMPUL NEB ONE (13:37)
--- NOTE | 2017-09-28 13:37 | ER Document Report ---
ED Medical Screen (RME) - General Chief Complaint: Shortness Of Breath Stated Complaint: SHORTNESS OF BREATH Time Seen by Provider: 09/28/17 13:31 Notes: 82-year-old female past medical history COPD here with complaints of cough and worsening shortness of breath over the past 1 week. She does normally wear home oxygen but does not normally feel that short of breath. She was sent here from the [facility]. EXAM Moderate end expiratory diffuse wheezes with normal aeration Mildly increased work of breathing TRAVEL OUTSIDE OF THE [place] IN LAST 30 DAYS: No - Related Data Allergies/Adverse Reactions: No Known Allergies Allergy (Verified 09/28/17 12:52) Past Medical History - Past Medical History Cardiac Medical History: Reports: Hx Congestive Heart Failure, Hx Coronary Artery Disease, Hx Hypercholesterolemia, Hx Hypertension Denies: Hx DVT, Hx Pulmonary Embolism Pulmonary Medical History: Reports: Hx COPD Denies: Hx Asthma, Hx Sleep Apnea Neurological Medical History: Denies: Hx Seizures Endocrine Medical History: Reports: Hx Diabetes Mellitus Type 2, Hx Hypothyroidism. Denies: Hx Hyperthyroidism Renal/ Medical History: Denies: Hx Peritoneal Dialysis Malignancy Medical History: Reports: Hx Lung Cancer GI Medical History: Denies: Hx Cirrhosis, Hx Gastroesophageal Reflux Disease, Hx Hepatitis Psychiatric Medical History: Denies: Hx Depression Infectious Medical History: Denies: Hx C-Diff, Hx Hepatitis, Hx MRSA Past Surgical History: Reports: Hx Appendectomy, Hx Hysterectomy - Immunizations Hx Diphtheria, Pertussis, Tetanus Vaccination: Yes History of Influenza Vaccine for 06/2017 - 11/2017 Season: Yes Influenza Administration Date for 06/2017 - 11/2017 Season: 06/17/17
[2017-09-28] MEDS ORDERED: PREDNISONE 20 MG TABLET PO ONE (13:39)
[2017-09-28 14:26] LABS: ANION GAP 14 (5-19); BLOOD UREA NITROGEN 8 mg/dL (7-20); CALCIUM 9.3 mg/dL (8.4-10.2); CARBON DIOXIDE 26 mmol/L (22-30); CHLORIDE 97 mmol/L (98-107); GLUCOSE 317 mg/dL (75-110); POTASSIUM 3.6 mmol/L (3.6-5.0); SODIUM 137.1 mmol/L (137-145)
[2017-09-28 14:45] LABS: ABSOLUTE BASOPHILS # (AUTO) 0.1 10^3/uL (0.0-0.2); ABSOLUTE MONOCYTES (AUTO) 1.2 10^3/uL (0.1-1.4); ABSOLUTE NEUT (AUTO) 10.2 10^3/uL (1.7-8.2); BASOPHILS % (AUTO) 0.7 % (0-2); EOSINOPHILS % (AUTO) 0.4 % (0-6); HEMATOCRIT 32.9 % (36.0-47.0); LYMPHOCYTES % (AUTO) 8.2 % (13-45); MEAN CORPUSCULAR HGB CONC 33.4 g/dL (32.0-36.0); MEAN CORPUSCULAR VOLUME 75 fl (80-97); MONOCYTES % (AUTO) 9.8 % (3-13); PLATELET COUNT 430 10^3/uL (150-450); RED BLOOD COUNT 4.39 10^6/uL (3.72-5.28); RED CELL DISTRIBUTION WIDTH 22.7 % (11.5-14.0); SEGMENTED NEUTROPHILS % (AUTO) 80.9 % (42-78); TOTAL CELLS COUNTED % (AUTO) 100 %; WHITE BLOOD COUNT 12.7 10^3/uL (4.0-10.5)
[2017-09-28] MEDS ORDERED: ALBUTEROL SULFATE 0.083% NEB 2.5 MG/3 ML AMPUL NEB ONE ×2 (14:46→15:42)
--- NOTE | 2017-09-28 14:52 | RADIOLOGY REPORT (SQ) ---
EXAM DESCRIPTION: CHEST PA/LAT COMPLETED DATE/TIME: 09/28/2017 2:38 pm REASON FOR STUDY: cough SOB; eval pneumonia COMPARISON: CT chest 12/20/2016, 10/16/2015 Chest films 05/06/2017, 06/30/2017, 08/16/2017 EXAM PARAMETERS: NUMBER OF VIEWS: two views TECHNIQUE: Digital Frontal and Lateral radiographic views of the chest acquired. RADIATION DOSE: NA LIMITATIONS: none FINDINGS: LUNGS AND PLEURA: Chronic volume loss and scarring in the left lower lobe superior segment . Stable scarring in the right upper lobe superimposed on the anterior 3rd rib. This unchanged compare d to chest CT 10/16/2015 benign. No acute infiltrates. No pleural effusion. No pneumothorax. MEDIASTINUM AND HILAR STRUCTURES: Volume loss and lung parenchymal scarring at the left hilum, unchan ged compared to prior studies HEART AND VASCULAR STRUCTURES: Heart normal size. No evidence for failure. BONES: No acute findings. HARDWARE: Bones are osteopenic. In the prior CT 12/20/2016, patient has developed about 25% compressio n of T10 vertebral body. Stable 50% compression of L1 OTHER: No other significant finding. IMPRESSION: No acute findings TECHNICAL DOCUMENTATION: JOB ID: [id number] [employer]- All Rights Reserved
--- NOTE | 2017-09-28 14:54 | ER Document Report ---
ED Respiratory Problem - General Mode of Arrival: Ambulatory Information source: Patient TRAVEL OUTSIDE OF THE [place] IN LAST 30 DAYS: No <MARISABEL MILLARD - Last Filed: 09/28/17 15:42> <STANTON MANN - Last Filed: 09/28/17 18:08> - General Chief Complaint: Shortness Of Breath Stated Complaint: SHORTNESS OF BREATH Time Seen by Provider: 09/28/17 13:31 Notes: Patient is an 82 year old female with a history of COPD and fevers is sent to the emergency department from [facility] for shortness of breath and a cough onset 1 week ago. Patient states that her symptoms have progressively worsened throughout the week. The patient also reports of a fever of 102 and chest tightness. Patient denies any chest pain or vomiting. Patient states she is normally on 2 L of oxygen at home but it was turned up to 3 L today after which she turned it back down to 2 L. Patient PCP is Estefany Aburto PA-C. (MARISABEL MILLARD) - Related Data Allergies/Adverse Reactions: No Known Allergies Allergy (Verified 09/28/17 12:52) Past Medical History - General Information source: Patient - Social History Smoking Status: Former Smoker Chew tobacco use (# tins/day): No Frequency of alcohol use: None Drug Abuse: None Family History: COPD, Malignancy Patient has suicidal ideation: No Patient has homicidal ideation: No - Past Medical History Cardiac Medical History: Reports: Hx Congestive Heart Failure, Hx Coronary Artery Disease, Hx Hypercholesterolemia, Hx Hypertension Pulmonary Medical History: Reports: Hx COPD Endocrine Medical History: Reports: Hx Diabetes Mellitus Type 2, Hx Hypothyroidism Malignancy Medical History: Reports: Hx Lung Cancer Past Surgical History: Reports: Hx Appendectomy, Hx Hysterectomy - Immunizations Hx Diphtheria, Pertussis, Tetanus Vaccination: Yes <MARISABEL MILLARD - Last Filed: 09/28/17 15:42> Review of Systems - Review of Systems Constitutional: See HPI, Fever EENT: No symptoms reported Cardiovascular: See HPI, Chest pain - chest tighntess Respiratory: See HPI, Cough, Short of breath Gastrointestinal: No symptoms reported Genitourinary: No symptoms reported Female Genitourinary: No symptoms reported Musculoskeletal: No symptoms reported Skin: No symptoms reported Hematologic/Lymphatic: No symptoms reported Neurological/Psychological: No symptoms reported -: Yes All other systems reviewed and negative <VENICETAMBRINA - Last Filed: 09/28/17 15:42> Physical Exam <VENICE,ARNOLDBRINA - Last Filed: 09/28/17 15:42> <STANTON MANN - Last Filed: 09/28/17 18:08> - Vital signs Vitals: Temp Pulse Resp BP Pulse Ox 97.9 F 84 20 110/58 L 96 09/28/17 13:32 09/28/17 13:32 09/28/17 13:32 09/28/17 13:32 09/28/17 13:32 - Notes Notes: GENERAL: Alert, interacts well. HEAD: Normocephalic, atraumatic. EYES: Pupils equal, round, and reactive to light. Extraocular movements intact. ENT: Oral mucosa moist, tongue midline. NECK: Full range of motion. Supple. Trachea midline. LUNGS: Tachypneic. Wet cough. Diffuse expiratory wheezing. Appears short of breath. Supraclavicular retractions. HEART: Tachycardic. No murmurs, gallops, or rubs. ABDOMEN: Soft, non-tender. Non-distended. Bowel sounds present in all 4 quadrants. EXTREMITIES: Moves all 4 extremities spontaneously. No edema. NEUROLOGICAL: Alert and oriented x3. Normal speech. PSYCH: Normal affect, normal mood. SKIN: Warm, dry, normal turgor. No rashes or lesions noted. (VENICEARNOLDBRINA) Course - Laboratory Result Diagrams: 09/28/17 14:20 09/28/17 13:55 <MARISABEL MILLARD - Last Filed: 09/28/17 15:42> - Laboratory Result Diagrams: 09/28/17 14:20 09/28/17 13:55 <STANTON MANN - Last Filed: 09/28/17 18:08> - Re-evaluation Re-evalutation: 09/28/17 15:47 Patient with significant wheeze, hypoxia on arrival, hypoxia resolved with addition of oxygen however wheezing is not significantly improved with albuterol. Chest x-ray does not show any pneumonia or fluid overload, CBC shows leukocytosis of 12.7, mild anemia with hemoglobin 11.0, platelets normal, CMP shows elevated glucose at 317, cardiac enzymes negative, proBNP elevated at 1060 however this is not consistent with patient's clinical presentation or chest x-ray, EKG is nonischemic. Given her COPD history and fever and increased wheezing patient will be given antibiotics despite no sign of pneumonia, suspect bacterial exacerbation of COPD. Patient has been given over azithromycin and prednisone. 3 breathing treatments. Discussed with Dr. Roper from the hospitalist service who agrees to accept the patient to his service, I suspect the patient is going to need BiPAP. Patient will be placed on IMCU in anticipation of needing BiPAP. (STANTON MANN) - Vital Signs Vital signs: Temp Pulse Resp BP Pulse Ox 97.9 F 84 26 H 117/53 L 99 09/28/17 13:32 09/28/17 13:32 09/28/17 15:01 09/28/17 15:00 09/28/17 15:01 - Laboratory Laboratory results interpreted by me: 09/28/17 09/28/17 09/28/17 13:55 14:20 14:20 WBC 12.7 H Hgb 11.0 L Hct 32.9 L MCV 75 L MCH 25.0 L RDW 22.7 H Seg Neutrophils % 80.9 H Lymphocytes % 8.2 L Absolute Neutrophils 10.2 H Chloride 97 L Est GFR (Non-Af Amer) 55 L Glucose 317 H Creatine Kinase 28 L NT-Pro-B Natriuret Pep 09/28/17 14:20 WBC Hgb Hct MCV MCH RDW Seg Neutrophils % Lymphocytes % Absolute Neutrophils Chloride Est GFR (Non-Af Amer) Glucose Creatine Kinase NT-Pro-B Natriuret Pep 1060 H - EKG Interpretation by Me Additional EKG results interpreted by me: 09/28/17 15:47 EKG shows sinus rhythm at a rate of 74, normal axis, no ST segment elevations or depressions, no T-wave inversions per my interpretation. (STANTON MANN) Discharge <MARISABEL MILLARD - Last Filed: 09/28/17 15:42> - Discharge Admitting Provider: Paula Roper Unit Admitted: IMCU <STANTON MANN - Last Filed: 09/28/17 18:08> - Discharge Clinical Impression: Acute and chronic respiratory failure with hypoxia, Acute exacerbation of chronic obstructive pulmonary disease (COPD) Condition: Fair Disposition: ADMITTED INPATIENT Scribe Attestation: 09/28/17 18:08 I personally performed the services described in the documentation, reviewed and edited the documentation which was dictated to the scribe in my presence, and it accurately records my words and actions. (STANTON MANN) Scribe Documentation - Scribe Written by Robert:: Robert Tai, 09/28/2017 14:54 acting as scribe for :: Valentin <MARISABEL MILLARD - Last Filed: 09/28/17 15:42>
[2017-09-28 15:07] LABS: HYPOCHROMASIA SLIGHT; OVALOCYTES 1+; PLATELET COMMENT ADEQUATE; PLATELET LARGE PRESENT; POIKILOCYTOSIS 1+; POLYCHROMASIA SLIGHT; SCHISTOCYTES SLIGHT
[2017-09-28 15:21] LABS: CREATINE KINASE MB 1.41 ng/mL (<4.55); TROPONIN I 0.013 ng/mL
[2017-09-28] MEDS ORDERED: AZITHROMYCIN INJ 500 MG VIAL IV ONE (15:37)
[2017-09-28] MEDS ORDERED: RINGERS SOLUTION,LACTATED 1,000 ML IV PRN (16:02)
[2017-09-28] MEDS ORDERED: ACETAMINOPHEN 325 MG TABLET PO PRN ×2 (16:02→22:26)
[2017-09-28] MEDS ORDERED: GLUCAGON,HUMAN RECOMB 1 MG INJ IM PRN (16:09)
[2017-09-28] MEDS ORDERED: DEXTROSE 50%-WATER 25 GM/50 ML DISP.SYRIN IV PRN ×2 (16:09)
[2017-09-28] MEDS ORDERED: DEXTROSE 40% GEL 15 GM TUBE PO PRN ×2 (16:09)
--- NOTE | 2017-09-28 16:19 | PDOC H&P ---
History of Present Illness Admission Date/PCP: 09/28/2017 KD CISNEROS PA-C Patient complains of: Cough and shortness of breath History of Present Illness: JATINDER RODRIGUEZ is a 82 year old female presents with complaint of cough and shortness of breath. Patient states that she has had a cough for the last week. Patient states that other people at her facility have been sick. Patient states that it is hard for her to breathe and that she has been coughing up clearish phlegm. Patient reports that she is also had fever and nasal congestion. Patient denies diarrhea, denies chest pain, denies burning with urination. Patient complains of left wrist pain secondary to blood draw. Spoke with ER who has given patient antibiotics, breathing treatment, and steroids. Past Medical History Cardiac Medical History: Reports: Congestive Heart Failure, Coronary Artery Disease, Hyperlipidema, Hypertension Denies: DVT, Pulmonary Embolism Pulmonary Medical History: Reports: Chronic Obstructive Pulmonary Disease (COPD) Denies: Asthma, Sleep Apnea Neurological Medical History: Denies: Seizures Endocrine Medical History: Reports: Diabetes Mellitus Type 2, Hypothyroidism Denies: Hyperthyroidism Malignancy Medical History: Reports: Lung Cancer GI Medical History: Denies: Cirrhosis, Gastroesophageal Reflux Disease, Hepatitis Psychiatric Medical History: Denies: Depression Infectious Medical History: Denies: Clostridium Difficile, Methicillin-Resistant Staph Aureus Past Surgical History Past Surgical History: Reports: Appendectomy, Hysterectomy Social History Smoking Status: Former Smoker Frequency of Alcohol Use: None Hx Recreational Drug Use: No Drugs: None Hx Prescription Drug Abuse: No - Advance Directive Resuscitation Status: Full Code Family History Family History: COPD, Malignancy Parental Family History Reviewed: Yes Children Family History Reviewed: Yes Sibling(s) Family History Reviewed.: Yes Medication/Allergy Home Medications: Acetaminophen [Tylenol] 650 mg PO Q4HP PRN MDD 2600 MG 03/29/17 Atorvastatin Calcium [Lipitor 40 mg Tablet] 40 mg PO QHS 03/29/17 Docusate Sodium [Colace 100 mg Capsule] 100 mg PO BID 03/29/17 Dronedarone Hydrochloride [Multaq 400 mg Tablet] 400 mg PO Q12 03/29/17 Ergocalciferol (Vitamin D2) [Vitamin D2] 50,000 unit PO MO@1000 03/29/17 Fluoxetine HCl [Prozac 20 mg Capsule] 20 mg PO QHS 03/29/17 Furosemide [Lasix] 20 mg PO DAILY 03/29/17 Levothyroxine Sodium [Synthroid 0.05 mg Tablet] 50 mcg PO Q6AM 03/29/17 Montelukast Sodium [Singulair 10 mg Tablet] 10 mg PO QHS 03/29/17 Pantoprazole Sodium [Protonix] 40 mg PO QHS 03/29/17 Potassium Chloride 10 meq PO DAILY 03/29/17 Insulin Aspart [Novolog Flexpen] 10 unit SUBCUT AC 05/06/17 Alprazolam [Xanax 0.25 mg Tablet] 0.25 mg PO BIDP PRN 05/07/17 Loperamide HCl [Imodium A-D] 4 mg PO ASDIR PRN MDD 8 MG 05/07/17 Melatonin 1 mg PO HSP PRN 05/07/17 Albuterol Sulfate [Ventolin 0.083% Neb 2.5 mg/3 mL Ampul] 2.5 mg NEB Q6H PRN Ascorbic Acid [Vitamin C] 500 mg PO BID 08/13/17 Bismuth Subsalicylate [Pepto-Bismol Susp 524 mg/30 ml Udcup] 1 dose PO Q4H PRN 08/13/17 Calcium Carbonate/Vitamin D3 [Calcium 500-Vit D3 400 Tablet] 1 tab PO BID Ferrous Sulfate 1 tab PO BID 08/13/17 Glycopyrrolate/Formoterol Fum [Bevespi Aerosphere Inhaler] 4.8 mcg IH BID Guaifenesin/D-Methorphan Hb [Robitussin-Dm Syrup 10 ml Udcup] 10 ml PO Q4H PRN 08/13/17 Doxycycline Hyclate 100 mg PO Q12 #10 capsule 08/17/17 Fluticasone Propionate [Flonase Nasal [place] 50 Mcg/[place] 16 gm] 2 spray NASL Q12 #0 spray.pump 08/17/17 Fluticasone/Salmeterol [Advair 250-50 Diskus 14 Dose/Diskus] 1 inh IH Q12 #1 inhaler 08/17/17 Guaifenesin [Mucinex Sr 600 mg Tablet.sa] 1,200 mg PO Q12 #10 tablet.sa Insulin Glargine,Hum.rec.anlog [Lantus Insulin 100 Unit/mL] 45 unit SUBCUT QHS # 1 insuln.pen 08/17/17 Prednisone 20 mg PO ASDIR PRN #15 tablet 08/17/17 Tiotropium [place] [Spiriva Handihaler 5 Cap/Kit (18 Mcg/Cap)] 1 cap IH DAILY # 1 kit 08/17/17 Allergies/Adverse Reactions: No Known Allergies Allergy (Verified 09/28/17 12:52) Review of Systems Constitutional: PRESENT: fever(s), weakness Eyes: ABSENT: visual disturbances Ears: ABSENT: hearing changes Cardiovascular: ABSENT: chest pain, dyspnea on exertion, edema, orthropnea, palpitations Respiratory: PRESENT: cough, dyspnea, sputum Gastrointestinal: ABSENT: abdominal pain, constipation, diarrhea, hematemesis, hematochezia, nausea, vomiting Genitourinary: ABSENT: dysuria, hematuria Musculoskeletal: ABSENT: joint swelling Integumentary: ABSENT: rash, wounds Neurological: ABSENT: abnormal gait, abnormal speech, confusion, dizziness, focal weakness, syncope Psychiatric: ABSENT: anxiety, depression, homidical ideation, suicidal ideation Endocrine: ABSENT: cold intolerance, heat intolerance, polydipsia, polyuria Hematologic/Lymphatic: ABSENT: easy bleeding, easy bruising Physical Exam Vital Signs: Temp Pulse Resp BP Pulse Ox 97.9 F 84 26 H 117/53 L 99 09/28/17 13:32 09/28/17 13:32 09/28/17 15:01 09/28/17 15:00 09/28/17 15:01 General appearance: PRESENT: mild distress, well-developed, well-nourished Head exam: PRESENT: atraumatic, normocephalic Eye exam: PRESENT: conjunctiva pink, EOMI. ABSENT: scleral icterus Ear exam: PRESENT: normal external ear exam Mouth exam: PRESENT: moist, tongue midline Neck exam: ABSENT: carotid bruit, JVD, lymphadenopathy, thyromegaly Respiratory exam: PRESENT: accessory muscle use, prolonged expiratory phas, rhonchi, wheezes Cardiovascular exam: PRESENT: RRR. ABSENT: diastolic murmur, rubs, systolic murmur Pulses: PRESENT: normal dorsalis pedis pul Vascular exam: PRESENT: normal capillary refill GI/Abdominal exam: PRESENT: normal bowel sounds, soft. ABSENT: distended, guarding, mass, organolmegaly, rebound, tenderness Rectal exam: PRESENT: deferred Extremities exam: PRESENT: full ROM. ABSENT: calf tenderness, clubbing, pedal edema Neurological exam: PRESENT: alert, awake, oriented to person, oriented to place , oriented to time, oriented to situation, CN II-XII grossly intact. ABSENT: motor sensory deficit Psychiatric exam: PRESENT: appropriate affect, normal mood. ABSENT: homicidal ideation, suicidal ideation Skin exam: PRESENT: dry, intact, warm. ABSENT: cyanosis, rash Results Laboratory Results: 09/28/17 14:20 09/28/17 13:55 09/28/17 09/28/17 09/28/17 13:55 14:20 14:20 WBC 12.7 H RBC 4.39 Hgb 11.0 L Hct 32.9 L MCV 75 L MCH 25.0 L MCHC 33.4 RDW 22.7 H Plt Count 430 Seg Neutrophils % 80.9 H Lymphocytes % 8.2 L Monocytes % 9.8 Eosinophils % 0.4 Basophils % 0.7 Absolute Neutrophils 10.2 H Absolute Lymphocytes 1.0 Absolute Monocytes 1.2 Absolute Eosinophils 0.0 Absolute Basophils 0.1 Sodium 137.1 Potassium 3.6 Chloride 97 L Carbon Dioxide 26 Anion Gap 14 BUN 8 Creatinine 0.97 Est GFR ( Amer) > 60 Est GFR (Non-Af Amer) 55 L Glucose 317 H Lactic Acid 1.6 Calcium 9.3 09/28/17 09/28/17 14:20 14:20 Creatine Kinase 28 L CK-MB (CK-2) 1.41 Troponin I 0.013 NT-Pro-B Natriuret Pep 1060 H Impressions: Chest X-Ray 09/28/17 13:37 IMPRESSION: No acute findings Assessment & Plan - Diagnosis (1) Acute and chronic respiratory failure with hypoxia Is this a current diagnosis for this admission?: Yes Plan: Secondary to acute exacerbation of COPD: We will place patient on steroids antibiotic and breathing treatments. Patient's chest x-ray does not demonstrate infiltrate will repeat chest x-ray in a.m. Will check ABG (2) Acute bronchitis Qualifiers: Is this a current diagnosis for this admission?: Yes Plan: Suspect viral source: Flu pending. Will place patient on steroids, breathing treatments, and antibiotics. Will check ABG. (3) COPD exacerbation Is this a current diagnosis for this admission?: Yes Plan: Acute exacerbation of COPD: Will check ABG. Will place on steroids, breathing treatments, and antibiotics. Most likely trigger is viral process (4) Fever Is this a current diagnosis for this admission?: Yes Plan: Flu pending (5) Type 2 diabetes mellitus Is this a current diagnosis for this admission?: No Plan: We will place patient on sliding scale insulin. Once home medications have been reconciled we will resume home medications. (6) History of CHF (congestive heart failure) Is this a current diagnosis for this admission?: Yes Plan: We will place patient on IV fluids at 50 cc/h. Will monitor patient for signs of CHF exacerbation. (7) Coronary artery disease Qualifiers: Coronary Disease-Associated Artery/Lesion type: [place] artery [place] vs. transplanted heart: [place] heart Associated angina: without angina Qualified Code(s): I25.10 - Atherosclerotic heart disease of [place] coronary artery without angina pectoris Is this a current diagnosis for this admission?: Yes Plan: Patient currently denying chest pain and patient's troponin negative. Will continue to monitor patient closely. - Time Time Spent: 30 to 50 Minutes Anticipated discharge: Home - We will admit to IMCU in case patient deteriorates.
[2017-09-28 16:47] LABS: A TYPE INFLUENZA AG NEGATIVE (NEGATIVE); B INFLUENZA AG NEGATIVE (NEGATIVE)
--- NOTE | 2017-09-28 18:18 | EKG REPORT ---
SEVERITY:- ABNORMAL ECG - SINUS RHYTHM PROBABLE LEFT ATRIAL ABNORMALITY BORDERLINE INFERIOR Q WAVES PROLONGED QT INTERVAL : Confirmed by: Valerio Duarte MD 28-Sep-2017 18:17:56
[2017-09-28 18:55] LABS: ARTERIAL BLOOD BASE EXCESS 1.9 mmol/L; ARTERIAL BLOOD FIO2 2L; ARTERIAL BLOOD H2CO3 1.16 mmol/L (1.05-1.35); ARTERIAL BLOOD HCO3 25.9 mmol/L (20-26); ARTERIAL BLOOD O2 SATURATION 98.3 % (94-98); ARTERIAL BLOOD PCO2 38.5 mmHg (35-45); ARTERIAL BLOOD PH 7.45 (7.35-7.45); ARTERIAL BLOOD PO2 111.5 mmHg (80-100); ARTERIAL BLOOD TOTAL CO2 27.1 mmol/L (21-25)
[2017-09-28] MEDS: IPRATROPIUM/ALBUTEROL 0.5-2.5 MG/3 ML AMPUL NEB SCH (20:52)
[2017-09-28] MEDS ORDERED: (PENDING PHARMACY ID) (Melatonin [Melatonin] 1 MG) PO PRN (22:26)
[2017-09-28] MEDS ORDERED: LOPERAMIDE HCL 4 MG PO PRN (22:26)
[2017-09-28] MEDS ORDERED: INSULIN REG, HUMAN 100 UNIT/ML 3 ML VIAL (PYX) IV ONE (22:27)
[2017-09-28] MEDS: LEVOFLOXACIN 500 MG/D5W RTU 500 MG/100 ML RTUPB IV SCH (22:52)
[2017-09-28] MEDS: FAMOTIDINE 20 MG TABLET PO SCH (22:52)
[2017-09-28] MEDS: METHYLPREDNISOLONE INJ 40 MG/1 ML SDV IV SCH (22:52)
[2017-09-28] MEDS ORDERED: GUAIFENESIN 600 MG TABLET.SA PO ONE (23:00)
[2017-09-28] MEDS ORDERED: MONTELUKAST SODIUM 10 MG TABLET PO ONE (23:00)
[2017-09-28] MEDS ORDERED: INSULIN GLARGINE,HUM.REC.ANLOG 300 UNIT/3 ML INSULN.PEN SUBCUT ONE ×2 (23:00→23:47)
[2017-09-28] MEDS ORDERED: DRONEDARONE HYDROCHLORIDE 400 MG TABLET PO ONE (23:00)
[2017-09-28] MEDS ORDERED: ATORVASTATIN CALCIUM 40 MG TABLET PO ONE (23:00)
[2017-09-28] MEDS ORDERED: FLUOXETINE HCL 20 MG CAPSULE PO ONE (23:00)
[2017-09-29] MEDS: IPRATROPIUM/ALBUTEROL 0.5-2.5 MG/3 ML AMPUL NEB SCH ×6 (00:49→19:54)
[2017-09-29 05:20] LABS: HEMATOCRIT 32.1 % (36.0-47.0); HEMOGLOBIN 10.6 g/dL (12.0-15.5); MEAN CORPUSCULAR HEMOGLOBIN 24.8 pg (27.0-33.4); MEAN CORPUSCULAR HGB CONC 32.9 g/dL (32.0-36.0); MEAN CORPUSCULAR VOLUME 75 fl (80-97); PLATELET COUNT 392 10^3/uL (150-450); RED BLOOD COUNT 4.26 10^6/uL (3.72-5.28); RED CELL DISTRIBUTION WIDTH 22.9 % (11.5-14.0); WHITE BLOOD COUNT 9.9 10^3/uL (4.0-10.5)
[2017-09-29 05:57] LABS: ALANINE AMINOTRANSFERASE 27 U/L (9-52); ALBUMIN 2.9 g/dL (3.5-5.0); ALKALINE PHOSPHATASE 117 U/L (38-126); ANION GAP 13 (5-19); ASPARTATE AMINO TRANSFERASE 27 U/L (14-36); BILIRUBIN,DIRECT 0.5 mg/dL (0.0-0.4); BILIRUBIN,TOTAL 0.7 mg/dL (0.2-1.3); BLOOD UREA NITROGEN 13 mg/dL (7-20); CALCIUM 9.3 mg/dL (8.4-10.2); CARBON DIOXIDE 24 mmol/L (22-30); CHLORIDE 101 mmol/L (98-107); GLUCOSE 382 mg/dL (75-110); TOTAL PROTEIN 5.5 g/dL (6.3-8.2)
[2017-09-29 05:58] LABS: ABSOLUTE LYMPHOCYTES# (MANUAL) 0.1 10^3/uL (0.5-4.7); ABSOLUTE MONOCYTES # (MANUAL) 0.1 10^3/uL (0.1-1.4); ABSOLUTE NEUTROPHILS# (MANUAL) 9.7 10^3/uL (1.7-8.2); BAND NEUTROPHILS % (MANUAL) 1 % (3-5); BASOPHILS % (MANUAL) 0 % (0-2); EOSINOPHILS % (MANUAL) 0 % (0-6); LYMPHOCYTES % (MANUAL) 1 % (13-45); MONOCYTES % (MANUAL) 1 % (3-13); SEGMENTED NEUTROPHILS % (MAN) 97 % (42-78); TOTAL CELLS COUNTED 100
[2017-09-29 06:04] LABS: ANISOCYTOSIS SLIGHT; BURR CELLS 1+; HYPOCHROMASIA SLIGHT; POIKILOCYTOSIS 1+; POLYCHROMASIA SLIGHT
[2017-09-29 06:05] LABS: OVALOCYTES SLIGHT; PLATELET COMMENT ADEQUATE; PLATELET GIANT PRESENT; PLATELET LARGE PRESENT
[2017-09-29 06:19] LABS: POTASSIUM 4.8 mmol/L (3.6-5.0)
[2017-09-29] MEDS: LANSOPRAZOLE 30 MG TAB.RAP.DR PO SCH (06:36)
[2017-09-29] MEDS: LEVOTHYROXINE SODIUM 0.05 MG TABLET PO SCH (06:36)
[2017-09-29] MEDS: METHYLPREDNISOLONE INJ 40 MG/1 ML SDV IV SCH ×3 (06:36→21:52)
[2017-09-29] MEDS: INSULIN LISPRO 100 UNIT/ML 3 ML VIAL SUBCUT SCH ×3 (08:18→17:13)
[2017-09-29] MEDS ORDERED: GLYCOPYRROLATE IH SCH (10:00)
[2017-09-29] MEDS ORDERED: (PENDING PHARMACY ID) (Umeclidinium Bromide [Incruse Ellipta] 1 PUFF) IH SCH (10:00)
[2017-09-29] MEDS ORDERED: FORMOTEROL FUM IH SCH (10:00)
[2017-09-29] MEDS ORDERED: [UNRECOGNIZED DRUG - OTHER] IH SCH (10:00)
[2017-09-29] MEDS: FLUTICASONE/SALMETEROL DISKUS 250-50 MCG/DOSE IH SCH ×2 (10:12→21:52)
[2017-09-29] MEDS: GUAIFENESIN 600 MG TABLET.SA PO SCH ×2 (10:12→21:52)
[2017-09-29] MEDS: FLUTICASONE NASAL SPRAY 50 MCG/SPRY 120 SPRAY/16 GM NASL SCH ×2 (10:12→21:52)
[2017-09-29] MEDS: ASCORBIC ACID 500 MG TABLET PO SCH ×2 (10:12→17:14)
[2017-09-29] MEDS: DOCUSATE SODIUM 100 MG CAPSULE PO SCH ×2 (10:13→17:13)
[2017-09-29] MEDS: FERROUS SULFATE 325 MG TABLET PO SCH ×2 (10:13→17:14)
[2017-09-29] MEDS: FAMOTIDINE 20 MG TABLET PO SCH ×2 (10:13→21:52)
[2017-09-29] MEDS: POTASSIUM CHLORIDE 10 MEQ TABLET.SA PO SCH (10:13)
[2017-09-29] MEDS: DRONEDARONE HYDROCHLORIDE 400 MG TABLET PO SCH ×2 (10:14→21:52)
[2017-09-29] MEDS: FUROSEMIDE 20 MG TABLET PO SCH (10:14)
[2017-09-29] MEDS: INSULIN LISPRO 100 UNIT/ML 3 ML VIAL SUBCUT PRN ×2 (11:18→21:53)
--- NOTE | 2017-09-29 15:34 | PDOC PROGRESS REPORT ---
Subjective Progress Note for:: 09/29/17 Subjective:: Patient states that she still is having problems with breathing. Reason For Visit: PNEUMONIA Physical Exam Vital Signs: Temp Pulse Resp BP Pulse Ox 97.9 F 76 20 93/43 L 100 09/29/17 13:15 09/29/17 14:18 09/29/17 13:15 09/29/17 13:15 09/29/17 13:15 Intake & Output 09/28/17 09/29/17 09/30/17 06:59 06:59 06:59 Weight 65.317 kg General appearance: PRESENT: no acute distress, well-developed, well-nourished Head exam: PRESENT: atraumatic, normocephalic Eye exam: PRESENT: conjunctiva pink, EOMI, PERRLA. ABSENT: scleral icterus Ear exam: PRESENT: normal external ear exam Mouth exam: PRESENT: moist, tongue midline Neck exam: ABSENT: carotid bruit, JVD, lymphadenopathy, thyromegaly Respiratory exam: PRESENT: accessory muscle use, prolonged expiratory phas, wheezes. ABSENT: rales, rhonchi Cardiovascular exam: PRESENT: RRR. ABSENT: diastolic murmur, rubs, systolic murmur Pulses: PRESENT: normal dorsalis pedis pul Vascular exam: PRESENT: normal capillary refill GI/Abdominal exam: PRESENT: normal bowel sounds, soft. ABSENT: distended, guarding, mass, organolmegaly, rebound, tenderness Rectal exam: PRESENT: deferred Extremities exam: ABSENT: calf tenderness, clubbing, pedal edema Neurological exam: PRESENT: alert, awake, oriented to person, oriented to place , oriented to time, oriented to situation, CN II-XII grossly intact. ABSENT: motor sensory deficit Psychiatric exam: PRESENT: appropriate affect, normal mood. ABSENT: homicidal ideation, suicidal ideation Skin exam: PRESENT: dry, intact, warm. ABSENT: cyanosis, rash Results Laboratory Results: 09/29/17 05:00 09/29/17 05:00 09/28/17 09/28/17 09/29/17 16:49 18:05 05:00 WBC 9.9 RBC 4.26 Hgb 10.6 L Hct 32.1 L MCV 75 L MCH 24.8 L MCHC 32.9 RDW 22.9 H Plt Count 392 Seg Neutrophils % Not Reportable Lymphocytes % Not Reportable Monocytes % Not Reportable Eosinophils % Not Reportable Basophils % Not Reportable Absolute Neutrophils Not Reportable Absolute Lymphocytes Not Reportable Absolute Monocytes Not Reportable Absolute Eosinophils Not Reportable Absolute Basophils Not Reportable Carbonic Acid Cancelled 1.16 HCO3/H2CO3 Ratio Cancelled 22:1 ABG pH Cancelled 7.45 ABG pCO2 Cancelled 38.5 ABG pO2 Cancelled 111.5 H ABG HCO3 Cancelled 25.9 ABG O2 Saturation Cancelled 98.3 H ABG Base Excess Cancelled 1.9 FiO2 Cancelled 2L Sodium Potassium Chloride Carbon Dioxide Anion Gap BUN Creatinine Est GFR ( Amer) Est GFR (Non-Af Amer) Glucose Calcium Total Bilirubin AST ALT Alkaline Phosphatase Total Protein Albumin 09/29/17 05:00 WBC RBC Hgb Hct MCV MCH MCHC RDW Plt Count Seg Neutrophils % Lymphocytes % Monocytes % Eosinophils % Basophils % Absolute Neutrophils Absolute Lymphocytes Absolute Monocytes Absolute Eosinophils Absolute Basophils Carbonic Acid HCO3/H2CO3 Ratio ABG pH ABG pCO2 ABG pO2 ABG HCO3 ABG O2 Saturation ABG Base Excess FiO2 Sodium 138.0 Potassium 4.8 D Chloride 101 Carbon Dioxide 24 Anion Gap 13 BUN 13 Creatinine 0.88 Est GFR ( Amer) > 60 Est GFR (Non-Af Amer) > 60 Glucose 382 H Calcium 9.3 Total Bilirubin 0.7 AST 27 ALT 27 Alkaline Phosphatase 117 Total Protein 5.5 L Albumin 2.9 L Impressions: Chest X-Ray 09/28/17 13:37 IMPRESSION: No acute findings Assessment & Plan - Diagnosis (1) Acute and chronic respiratory failure with hypoxia Is this a current diagnosis for this admission?: Yes Plan: Secondary to acute exacerbation of COPD: Pt's breathing improving. Will continue current treatment. (2) Acute bronchitis Qualifiers: Is this a current diagnosis for this admission?: Yes Plan: Suspect viral source: Flu neg. Will continue current steroids, breathing treatments, and antibiotics. (3) COPD exacerbation Is this a current diagnosis for this admission?: Yes Plan: Acute exacerbation of COPD: Will continue steroids, breathing treatments, and antibiotics. (4) Fever Is this a current diagnosis for this admission?: Yes Plan: Flu neg. (5) Type 2 diabetes mellitus Is this a current diagnosis for this admission?: No Plan: We will place patient on Lantus and mealtime insulin and will continue sliding scale insulin. (6) History of CHF (congestive heart failure) Is this a current diagnosis for this admission?: Yes Plan: Will discontinue IVFs (7) Coronary artery disease Qualifiers: Coronary Disease-Associated Artery/Lesion type: [place] artery [place] vs. transplanted heart: [place] heart Associated angina: without angina Qualified Code(s): I25.10 - Atherosclerotic heart disease of [place] coronary artery without angina pectoris Is this a current diagnosis for this admission?: Yes Plan: stable. - Time Time Spent with patient: 15-24 minutes
[2017-09-29] MEDS: LEVOFLOXACIN 500 MG/D5W RTU 500 MG/100 ML RTUPB IV SCH (21:52)
[2017-09-29] MEDS ORDERED: ATORVASTATIN CALCIUM 40 MG TABLET PO SCH (22:00)
[2017-09-29] MEDS ORDERED: FLUOXETINE HCL 20 MG CAPSULE PO SCH (22:00)
[2017-09-29] MEDS ORDERED: INSULIN GLARGINE,HUM.REC.ANLOG 300 UNIT/3 ML INSULN.PEN SUBCUT SCH (22:00)
[2017-09-29] MEDS ORDERED: MONTELUKAST SODIUM 10 MG TABLET PO SCH (22:00)
[2017-09-30] MEDS: IPRATROPIUM/ALBUTEROL 0.5-2.5 MG/3 ML AMPUL NEB SCH ×5 (00:07→15:18)
[2017-09-30] MEDS: LANSOPRAZOLE 30 MG TAB.RAP.DR PO SCH (06:23)
[2017-09-30] MEDS: INSULIN LISPRO 100 UNIT/ML 3 ML VIAL SUBCUT PRN ×2 (06:23→12:39)
[2017-09-30] MEDS: METHYLPREDNISOLONE INJ 40 MG/1 ML SDV IV SCH (06:23)
[2017-09-30] MEDS: LEVOTHYROXINE SODIUM 0.05 MG TABLET PO SCH (06:23)
[2017-09-30] MEDS: INSULIN LISPRO 100 UNIT/ML 3 ML VIAL SUBCUT SCH ×2 (07:56→10:46)
[2017-09-30] MEDS: DOCUSATE SODIUM 100 MG CAPSULE PO SCH (10:47)
[2017-09-30] MEDS: GUAIFENESIN 600 MG TABLET.SA PO SCH (10:47)
[2017-09-30] MEDS: FERROUS SULFATE 325 MG TABLET PO SCH (10:47)
[2017-09-30] MEDS: DRONEDARONE HYDROCHLORIDE 400 MG TABLET PO SCH (10:47)
[2017-09-30] MEDS: FAMOTIDINE 20 MG TABLET PO SCH (10:48)
[2017-09-30] MEDS: ASCORBIC ACID 500 MG TABLET PO SCH (10:48)
[2017-09-30] MEDS: POTASSIUM CHLORIDE 10 MEQ TABLET.SA PO SCH (10:48)
[2017-09-30] MEDS: FUROSEMIDE 20 MG TABLET PO SCH (10:48)
[2017-09-30] MEDS: FLUTICASONE NASAL SPRAY 50 MCG/SPRY 120 SPRAY/16 GM NASL SCH (10:49)
[2017-09-30] MEDS: FLUTICASONE/SALMETEROL DISKUS 250-50 MCG/DOSE IH SCH (10:49)
[2017-09-30 12:00] VITALS: BP 103/43
--- NOTE | 2017-09-30 12:07 | PDOC DISCHARGE SUMMARY ---
General - Admit/Disc Date/PCP Admission Date/Primary Care Provider: 09/28/17 16:27 KD CISNEROS PA-C Discharge Date: 09/30/17 - Discharge Diagnosis (1) Acute and chronic respiratory failure with hypoxia Is this a current diagnosis for this admission?: Yes Summary: Secondary to COPD exacerbation: Pt was placed on steroids, breathing treatments , and antibiotics. Pt demonstrated significant improvement. (2) Acute bronchitis Is this a current diagnosis for this admission?: Yes Summary: Will place pt on Levaquin PO, Medro dose liudmila, and breathing treatments. (3) COPD exacerbation Is this a current diagnosis for this admission?: Yes Summary: Will continue steroids PO, Levaquin for 3 days, and breathing treatments. (4) Fever Is this a current diagnosis for this admission?: Yes Summary: Resolved. Most likely viral. (5) Type 2 diabetes mellitus Is this a current diagnosis for this admission?: No Summary: Will continue home regimen with SSI. (6) History of CHF (congestive heart failure) Is this a current diagnosis for this admission?: Yes Summary: Pt has remained stable. (7) Coronary artery disease Is this a current diagnosis for this admission?: Yes Summary: Pt has remained stable. - Additional Information Resuscitation Status: Full Code Discharge Activity: Activity As Tolerated Prescriptions: Levofloxacin [Levaquin 500 mg Tablet] 500 mg PO DAILY #3 tablet Methylprednisolone [Medrol Dosepack (4 mg/Tab) 21 Tab/Dosepak] 4 mg PO ASDIR PRN #21 tab.ds.pk PRN Reason: Home Medications: Atorvastatin Calcium [Lipitor 40 mg Tablet] 40 mg PO QHS 03/29/17 Docusate Sodium [Colace 100 mg Capsule] 100 mg PO BID 03/29/17 Dronedarone Hydrochloride [Multaq 400 mg Tablet] 400 mg PO Q12 03/29/17 Ergocalciferol (Vitamin D2) [Vitamin D2] 50,000 unit PO MO@1000 03/29/17 Fluoxetine HCl [Prozac 20 mg Capsule] 20 mg PO QHS 03/29/17 Furosemide [Lasix] 20 mg PO DAILY 03/29/17 Levothyroxine Sodium [Synthroid 0.05 mg Tablet] 50 mcg PO Q6AM 03/29/17 Montelukast Sodium [Singulair 10 mg Tablet] 10 mg PO QHS 03/29/17 Pantoprazole Sodium [Protonix] 40 mg PO QHS 03/29/17 Potassium Chloride 10 meq PO DAILY 03/29/17 Insulin Aspart [Novolog Flexpen] 10 unit SUBCUT AC 05/06/17 Loperamide HCl [Imodium A-D] 4 mg PO ASDIR PRN MDD 8 MG 05/07/17 Melatonin 1 mg PO HSP PRN 05/07/17 Albuterol Sulfate [Ventolin 0.083% Neb 2.5 mg/3 mL Ampul] 2.5 mg NEB Q6H PRN Ascorbic Acid [Vitamin C] 500 mg PO BID 08/13/17 Bismuth Subsalicylate [Pepto-Bismol Susp 524 mg/30 ml Udcup] 1 dose PO Q4H PRN 08/13/17 Calcium Carbonate/Vitamin D3 [Calcium 500-Vit D3 400 Tablet] 1 tab PO BID Ferrous Sulfate 1 tab PO BID 08/13/17 Glycopyrrolate/Formoterol Fum [Bevespi Aerosphere Inhaler] 4.8 mcg IH BID Guaifenesin/D-Methorphan Hb [Robitussin-Dm Syrup 10 ml Udcup] 10 ml PO Q4H PRN 08/13/17 Fluticasone Propionate [Flonase Nasal [place] 50 Mcg/[place] 16 gm] 2 spray NASL Q12 #0 spray.pump 08/17/17 Fluticasone/Salmeterol [Advair 250-50 Diskus 14 Dose/Diskus] 1 inh IH Q12 #1 inhaler 08/17/17 Guaifenesin [Mucinex Sr 600 mg Tablet.sa] 1,200 mg PO Q12 #10 tablet.sa Insulin Glargine,Hum.rec.anlog [Lantus Insulin 100 Unit/mL] 45 unit SUBCUT QHS # 1 insuln.pen 08/17/17 Fluoxetine HCl [Prozac 20 mg Capsule] 20 mg PO DAILY 09/28/17 Umeclidinium [place] [Incruse Ellipta] 1 puff IH DAILY 09/28/17 Levofloxacin [Levaquin 500 mg Tablet] 500 mg PO DAILY #3 tablet 09/30/17 Methylprednisolone [Medrol Dosepack (4 mg/Tab) 21 Tab/Dosepak] 4 mg PO ASDIR PRN #21 tab.ds.pk 09/30/17 History of Present Illness Patient complains of: Shortness of breath History of Present Illness: JATINDER RODRIGUEZ is a 82 year old female presents with complaint of cough and shortness of breath. Patient states that she has had a cough for the last week. Patient states that other people at her facility have been sick. Patient states that it is hard for her to breathe and that she has been coughing up clearish phlegm. Patient reports that she is also had fever and nasal congestion. Patient denies diarrhea, denies chest pain, denies burning with urination. Patient complains of left wrist pain secondary to blood draw. Spoke with ER who has given patient antibiotics, breathing treatment, and steroids. Hospital Course Hospital Course: Pt is an 82 year old female who was admitted for shortness of breath. Pt was found to have Acute and Chronic Respiratory Failure in setting of Acute Exacerbation of COPD. Pt was placed on steroids, breathing treatments, and antibiotics. Pt was noted to have hyperglycemia and was placed on SSI. Pt has done well during hospitalization. Physical Exam Vital Signs: Temp Pulse Resp BP Pulse Ox 97.7 F 88 18 104/90 H 99 09/30/17 07:49 09/30/17 11:38 09/30/17 11:38 09/30/17 07:49 09/30/17 11:38 Intake & Output 09/29/17 09/30/17 10/01/17 06:59 06:59 06:59 Intake Total 933 Output Total 600 Balance 333 Weight 65.317 kg 67.6 kg General appearance: PRESENT: no acute distress, well-developed, well-nourished Head exam: PRESENT: atraumatic, normocephalic Eye exam: PRESENT: conjunctiva pink, EOMI. ABSENT: scleral icterus Ear exam: PRESENT: normal external ear exam Mouth exam: PRESENT: moist, tongue midline Neck exam: ABSENT: carotid bruit, JVD, lymphadenopathy, thyromegaly Respiratory exam: PRESENT: wheezes - scant wheezing that clears with coughing. no accessory mucsle use, able to speak in complete sentences.. ABSENT: rales, rhonchi Cardiovascular exam: PRESENT: RRR. ABSENT: diastolic murmur, rubs, systolic murmur Pulses: PRESENT: normal dorsalis pedis pul GI/Abdominal exam: PRESENT: normal bowel sounds, soft. ABSENT: distended, guarding, mass, organolmegaly, rebound, tenderness Rectal exam: PRESENT: deferred Extremities exam: PRESENT: full ROM. ABSENT: calf tenderness, clubbing, pedal edema Neurological exam: PRESENT: alert, awake, oriented to person, oriented to place , oriented to time, oriented to situation, CN II-XII grossly intact. ABSENT: motor sensory deficit Psychiatric exam: PRESENT: appropriate affect, normal mood. ABSENT: homicidal ideation, suicidal ideation Skin exam: PRESENT: dry, intact, warm. ABSENT: cyanosis, rash Results Laboratory Results: 09/29/17 05:00 09/29/17 05:00 09/29/17 09/29/17 17:00 22:49 Troponin I < 0.012 < 0.012 Impressions: Chest X-Ray 09/28/17 13:37 IMPRESSION: No acute findings Plan Time Spent: Greater than 30 Minutes
== END 2017-09-30 16:01 | DRG 190 ==
LOC: ER 12:51 → EH 16:27 → 3N 09-29 12:51
PROVIDERS: ADMIT Emergency Medicine; ATTEND Emergency Medicine
DX: J44.1 Chronic obstructive pulmonary disease with (acute) exacerbation (principal); J96.21 Acute and chronic respiratory failure with hypoxia; C34.90 Malignant neoplasm of unspecified part of unspecified bronchus or lung; J44.0 Chronic obstructive pulmonary disease with (acute) lower respiratory infection; J20.9 Acute bronchitis, unspecified; I50.9 Heart failure, unspecified; I11.0 Hypertensive heart disease with heart failure; I25.10 Atherosclerotic heart disease of native coronary artery without angina pectoris; E11.65 Type 2 diabetes mellitus with hyperglycemia; E03.9 Hypothyroidism, unspecified; Z99.81 Dependence on supplemental oxygen; Z79.4 Long term (current) use of insulin; Z79.51 Long term (current) use of inhaled steroids; Z79.52 Long term (current) use of systemic steroids; Z79.899 Other long term (current) drug therapy
CPT/HCPCS: 36415; 36600; 71046; 80048; 80053; 82550; 82553; 82803; 82962; 83605; 83880; 84484; 85025; 87040; 87804; 93005; 93010; 94640; 94660; 99285; J0456; J1815; J1956; J2920; J3490; J7120; J7512; J7620

== ENCOUNTER 2017-12-23 16:55 | Inpatient (IN) | payer MEDICARE, MEDICAID ==
[2017-12-23 17:27] LABS: ABSOLUTE MONOCYTES (AUTO) 1.7 10^3/uL (0.1-1.4); ABSOLUTE NEUT (AUTO) 9.7 10^3/uL (1.7-8.2); BASOPHILS % (AUTO) 0.1 % (0-2); EOSINOPHILS % (AUTO) 0.1 % (0-6); HEMATOCRIT 36.1 % (36.0-47.0); HEMOGLOBIN 11.6 g/dL (12.0-15.5); LYMPHOCYTES % (AUTO) 25.7 % (13-45); MEAN CORPUSCULAR HEMOGLOBIN 25.7 pg (27.0-33.4); MEAN CORPUSCULAR HGB CONC 32.1 g/dL (32.0-36.0); MEAN CORPUSCULAR VOLUME 80 fl (80-97); MONOCYTES % (AUTO) 10.9 % (3-13); PLATELET COUNT 335 10^3/uL (150-450); RED BLOOD COUNT 4.52 10^6/uL (3.72-5.28); RED CELL DISTRIBUTION WIDTH 16.5 % (11.5-14.0); SEGMENTED NEUTROPHILS % (AUTO) 63.2 % (42-78); TOTAL CELLS COUNTED % (AUTO) 100 %; WHITE BLOOD COUNT 15.4 10^3/uL (4.0-10.5)
[2017-12-23 17:41] LABS: INTERNATIONAL RATION (INR) 1.03
[2017-12-23 17:44] LABS: ALANINE AMINOTRANSFERASE 25 U/L (9-52); ALBUMIN 3.3 g/dL (3.5-5.0); ALKALINE PHOSPHATASE 106 U/L (38-126); ANION GAP 9 (5-19); ASPARTATE AMINO TRANSFERASE 14 U/L (14-36); BILIRUBIN,DIRECT 0.2 mg/dL (0.0-0.4); BILIRUBIN,TOTAL 0.8 mg/dL (0.2-1.3); BLOOD UREA NITROGEN 10 mg/dL (7-20); CALCIUM 9.1 mg/dL (8.4-10.2); CARBON DIOXIDE 29 mmol/L (22-30); CHLORIDE 95 mmol/L (98-107); GLUCOSE 333 mg/dL (75-110); POTASSIUM 3.6 mmol/L (3.6-5.0); SODIUM 133.3 mmol/L (137-145); TOTAL PROTEIN 5.9 g/dL (6.3-8.2)
--- NOTE | 2017-12-23 17:50 | ER Document Report ---
ED General - General Mode of Arrival: Medic Information source: Patient TRAVEL OUTSIDE OF THE [place] IN LAST 30 DAYS: No <DARNELL HERRERA - Last Filed: 12/23/17 23:59> <STANTON MANN - Last Filed: 12/24/17 00:05> - General Chief Complaint: Shortness Of Breath Stated Complaint: SHORTNESS OF BREATH Time Seen by Provider: 12/23/17 17:35 Notes: 82 y.o female with a PMHx of CHF, type 2 diabetes and COPD [facility]B, persistent cough and fever of 100.6 yesterday. Pt states that her cough is productive and has been persistent for the past month, worsening within the last two days. Pt denies coughing up any blood. She denies any CP, vomiting, pedal edema, diarrhea or abd pain. Pt is on 2 Liters O2 at [facility]. Pt takes Synthroid at home. EMS gave Albuterol, 1A&A, Solumedral 125 and 975mg Tylenol and 1 liter bolus NS. (DARNELL HERRERA) - Related Data Allergies/Adverse Reactions: No Known Allergies Allergy (Verified 12/23/17 18:07) Past Medical History - General Information source: Patient - Social History Smoking Status: Former Smoker - quit 9 years ago Cigarette use (# per day): No - quit Chew tobacco use (# tins/day): No Smoking Education Provided: No Frequency of alcohol use: None Drug Abuse: None Family History: COPD, Malignancy - Past Medical History Cardiac Medical History: Reports: Hx Congestive Heart Failure, Hx Coronary Artery Disease, Hx Hypercholesterolemia, Hx Hypertension Denies: Hx DVT, Hx Pulmonary Embolism Pulmonary Medical History: Reports: Hx COPD Denies: Hx Asthma, Hx Sleep Apnea Neurological Medical History: Denies: Hx Seizures Endocrine Medical History: Reports: Hx Diabetes Mellitus Type 2, Hx Hypothyroidism. Denies: Hx Hyperthyroidism Renal/ Medical History: Denies: Hx Peritoneal Dialysis Malignancy Medical History: Reports: Hx Lung Cancer GI Medical History: Denies: Hx Cirrhosis, Hx Gastroesophageal Reflux Disease, Hx Hepatitis Psychiatric Medical History: Denies: Hx Depression Infectious Medical History: Denies: Hx C-Diff, Hx Hepatitis, Hx MRSA Past Surgical History: Reports: Hx Appendectomy, Hx Hysterectomy - Immunizations Hx Diphtheria, Pertussis, Tetanus Vaccination: Yes <DARNELL HERRERA - Last Filed: 12/23/17 23:59> Review of Systems - Review of Systems Constitutional: See HPI, Fever - 100.6 EENT: No symptoms reported Cardiovascular: See HPI. denies: Chest pain, Edema - no bilateral pedal edema Respiratory: See HPI, Cough, Short of breath, Sputum. denies: Hemoptysis Gastrointestinal: See HPI. denies: Abdominal pain, Diarrhea, Vomiting Genitourinary: No symptoms reported Female Genitourinary: No symptoms reported Musculoskeletal: No symptoms reported Skin: No symptoms reported Hematologic/Lymphatic: No symptoms reported Neurological/Psychological: No symptoms reported -: Yes All other systems reviewed and negative <DARNELL HERRERA - Last Filed: 12/23/17 23:59> Physical Exam <DARNELL HERRERA - Last Filed: 12/23/17 23:59> <STANTON MANN - Last Filed: 12/24/17 00:05> - Vital signs Vitals: Resp BP Pulse Ox 19 110/92 H 97 12/23/17 17:02 12/23/17 17:02 12/23/17 17:02 - Notes Notes: PHYSICAL EXAM GENERAL: Alert, interacts well. No acute distress. HEAD: Normocephalic, atraumatic. EYES: Pupils equal, round, and reactive to light. Extraocular movements intact. ENT: Oral mucosa moist, tongue midline. NECK: Full range of motion. Supple. Trachea midline. LUNGS: LT rhonchi and crackles. bilateral wheezes. Appears SOB. HEART: Regular rate and rhythm. No murmurs, gallops, or rubs. ABDOMEN: Soft, non-tender. Non-distended. Bowel sounds present in all 4 quadrants. No guarding, rebound, or rigidity. EXTREMITIES: Moves all 4 extremities spontaneously. No edema, radial and dorsalis pedis pulses 2/4 bilaterally. No cyanosis. NEUROLOGICAL: Alert and oriented x3. Normal speech. Biceps and patellar DTRs 2+ bilaterally. PSYCH: Normal affect, normal mood. SKIN: Warm, normal turgor. Diaphoretic. No rashes or lesions noted. (DARNELL HERRERA) Course - Laboratory Result Diagrams: 12/23/17 17:10 12/23/17 17:10 <DARNELL HERRERA - Last Filed: 12/23/17 23:59> - Laboratory Result Diagrams: 12/23/17 17:10 12/23/17 17:10 <STANTON MANN - Last Filed: 12/24/17 00:05> - Re-evaluation Re-evalutation: 12/23/17 21:01 On arrival patient was somewhat short of breath and febrile, but in no acute distress, lactic acid was elevated at 3.7, given the increased sputum production , cough and fever combined with lactic acidosis patient was given Zosyn for possible sepsis, she has not been significantly hypotensive here, she has also not been tachycardic and has only had mild tachypnea. I did not give large volume fluid resuscitation given her history of CHF and the fact that her laboratory studies showed an elevated proBNP at 1020. CBC shows leukocytosis of 15.4, anemia with hemoglobin 11.6, coags essentially normal, venous blood gas does not show acidosis, CMP shows hyponatremia with sodium of 133.3, glucose elevated 333, lactic acid elevated at 3.7, albumin is low, cardiac enzymes negative, proBNP elevated as noted before 1020. Urinalysis shows elevated glucose but no evidence of infection. Chest x-ray shows no acute process per radiology. Blood cultures were obtained. As previously noted no definitive source for infection was identified although I do suspect this is an acute bacterial exacerbation of COPD. Discussed the patient with the hospitalist Dr. Pierre for admission and he agrees to accept the patient to his service on the [facility]. (STANTON MANN) - Vital Signs Vital signs: Temp Pulse Resp BP Pulse Ox 98 F 95 20 128/68 H 98 12/23/17 18:16 12/23/17 17:19 12/23/17 23:31 12/23/17 23:31 12/23/17 23:31 - Laboratory Laboratory results interpreted by me: 12/23/17 12/23/17 12/23/17 17:10 17:10 17:10 WBC 15.4 H Hgb 11.6 L MCH 25.7 L RDW 16.5 H Absolute Neutrophils 9.7 H Absolute Monocytes 1.7 H Sodium 133.3 L Chloride 95 L Glucose 333 H POC Glucose Lactic Acid 3.7 H Creatine Kinase NT-Pro-B Natriuret Pep Total Protein 5.9 L Albumin 3.3 L Urine Glucose (UA) Urine Ascorbic Acid 12/23/17 12/23/17 12/23/17 17:10 17:10 17:27 WBC Hgb MCH RDW Absolute Neutrophils Absolute Monocytes Sodium Chloride Glucose POC Glucose 388 H Lactic Acid Creatine Kinase < 20 L NT-Pro-B Natriuret Pep 1020 H Total Protein Albumin Urine Glucose (UA) Urine Ascorbic Acid 12/23/17 12/23/17 19:59 21:00 WBC Hgb MCH RDW Absolute Neutrophils Absolute Monocytes Sodium Chloride Glucose POC Glucose Lactic Acid 2.2 H Creatine Kinase NT-Pro-B Natriuret Pep Total Protein Albumin Urine Glucose (UA) >=500 H Urine Ascorbic Acid 40 H - EKG Interpretation by Me Additional EKG results interpreted by me: 12/23/17 21:01 EKG shows sinus rhythm at a rate of 86, normal axis, interventricular conduction delay, no ST segment elevations or depressions, irregular baseline, per my interpretation. (STANTON MANN) Discharge <DARNELL HERRERA - Last Filed: 12/23/17 23:59> - Discharge Admitting Provider: Hospitalist - [facility] Admitted: [facility] <STANTON MANN - Last Filed: 12/24/17 00:05> - Discharge Clinical Impression: Acute exacerbation of chronic obstructive pulmonary disease (COPD), History of CHF (congestive heart failure) Condition: Fair Disposition: ADMITTED INPATIENT Scribe Attestation: 12/24/17 00:05 I personally performed the services described in the documentation, reviewed and edited the documentation which was dictated to the scribe in my presence, and it accurately records my words and actions. (STANTON MANN) Scribe Documentation - Scribe Written by Robert:: Robert Spence 12/23/2017 1755 acting as scribe for :: Valentin <DARNELL HERRERA - Last Filed: 12/23/17 23:59>
[2017-12-23 17:54] LABS: VENOUS BLOOD BASE EXCESS 1.9 mmol/L; VENOUS BLOOD HCO3 28.2 mmol/L (20-32); VENOUS BLOOD PCO2 51.1 mmHg (35-63); VENOUS BLOOD PH 7.36 (7.30-7.42)
[2017-12-23] MEDS ORDERED: PIPERACILLIN/TAZOBACTAM 4.5 GM VIAL IV ONE (17:58)
--- NOTE | 2017-12-23 18:42 | RADIOLOGY REPORT (SQ) ---
EXAM DESCRIPTION: CHEST 2 VIEWS COMPLETED DATE/TIME: 12/23/2017 6:27 pm REASON FOR STUDY: Shortness of breath, wheezing COMPARISON: 09/28/2017. EXAM PARAMETERS: NUMBER OF VIEWS: two views TECHNIQUE: Digital Frontal and Lateral radiographic views of the chest acquired. RADIATION DOSE: NA LIMITATIONS: none FINDINGS: LUNGS AND PLEURA: Chronic volume loss on the left side. Interstitial scarring. No focal infiltrates. No pleural effusion or pneumothorax. MEDIASTINUM AND HILAR STRUCTURES: No masses or contour abnormalities. HEART AND VASCULAR STRUCTURES: Heart normal size. No evidence for failure. BONES: No acute findings. HARDWARE: None in the chest. OTHER: No other significant finding. IMPRESSION: CHRONIC CHANGES. NO ACUTE RADIOGRAPHIC FINDING IN THE CHEST. TECHNICAL DOCUMENTATION: JOB ID: [id number] [employer]- All Rights Reserved Reading location - IP/workstation name: [email or web address]
[2017-12-23 18:43] LABS: CREATINE KINASE MB 0.63 ng/mL (<4.55); NT PRO BNP 1020 pg/mL (<450)
[2017-12-23 18:44] LABS: TROPONIN I < 0.012 ng/mL
[2017-12-23 20:25] LABS: APPEARANCE,URINE CLEAR; BILIRUBIN,URINE NEGATIVE (NEGATIVE); COLOR,URINE YELLOW; GLUCOSE, URINE >=500 mg/dL (NEGATIVE); KETONES,URINE NEGATIVE (NEGATIVE); LEUKOCYTE ESTERASE,URINE NEGATIVE (NEGATIVE); NITRITE,URINE NEGATIVE (NEGATIVE); PROTEIN,URINE NEGATIVE (NEGATIVE); URINE SPECIFIC GRAVITY 1.011; UROBILINOGEN,URINE NEGATIVE mg/dL (<2.0)
[2017-12-23] MEDS ORDERED: VANCOMYCIN HCL 1,000 MG in DEXTROSE 5%-WATER 250 ML IV NR (21:30)
[2017-12-23] MEDS ORDERED: CEFEPIME 1 GM/D5W RTU 1 GM/50 ML RTUPB IV ONE (21:30)
--- NOTE | 2017-12-23 21:40 | PDOC H&P ---
History of Present Illness Admission Date/PCP: 12/23/17 21:30 KD CISNEROS PA-C History of Present Illness: JATINDER RODRIGUEZ is a 82 year old female patient with past medical history of lung CA, COPD, diabetes mellitus and coronary artery disease, brought from [facility] via EMS for cough and fever. Since patient is hard of hearing history is limited. He states she has had lingering cough productive of whitish sputum for the last 6 weeks. Since yesterday she started to have fever and reportedly she has a documented fever of 100.6. Her initial workup at the ER shows leukocytosis of 15,000 and her lactic acid is 3.7. Her chest x-ray looks unremarkable. Patient denies any chest pain, palpitation, diaphoresis, nausea, vomiting, diarrhea or any urinary complaints. She does not have any orthopnea or paroxysmal nocturnal dyspnea no headache or dizziness. Past Medical History Cardiac Medical History: Reports: Congestive Heart Failure, Coronary Artery Disease, Hyperlipidema, Hypertension Denies: DVT, Pulmonary Embolism Pulmonary Medical History: Reports: Chronic Obstructive Pulmonary Disease (COPD) Denies: Asthma, Sleep Apnea Neurological Medical History: Denies: Seizures Endocrine Medical History: Reports: Diabetes Mellitus Type 2, Hypothyroidism Denies: Hyperthyroidism Malignancy Medical History: Reports: Lung Cancer GI Medical History: Denies: Cirrhosis, Gastroesophageal Reflux Disease, Hepatitis Psychiatric Medical History: Denies: Depression Infectious Medical History: Denies: Clostridium Difficile, Methicillin-Resistant Staph Aureus Past Surgical History Past Surgical History: Reports: Appendectomy, Hysterectomy Social History Smoking Status: Former Smoker - quit 9 years ago Frequency of Alcohol Use: None Hx Recreational Drug Use: No Drugs: None Hx Prescription Drug Abuse: No Family History Family History: COPD, Malignancy Parental Family History Reviewed: Yes Children Family History Reviewed: Yes Sibling(s) Family History Reviewed.: Yes Medication/Allergy Home Medications: Atorvastatin Calcium [Lipitor 40 mg Tablet] 40 mg PO QHS 03/29/17 Docusate Sodium [Colace 100 mg Capsule] 100 mg PO BID 03/29/17 Dronedarone Hydrochloride [Multaq 400 mg Tablet] 400 mg PO Q12 03/29/17 Ergocalciferol (Vitamin D2) [Vitamin D2] 50,000 unit PO MO@1000 03/29/17 Fluoxetine HCl [Prozac 20 mg Capsule] 20 mg PO QHS 03/29/17 Furosemide [Lasix] 20 mg PO DAILY 03/29/17 Levothyroxine Sodium [Synthroid 0.05 mg Tablet] 50 mcg PO Q6AM 03/29/17 Montelukast Sodium [Singulair 10 mg Tablet] 10 mg PO QHS 03/29/17 Pantoprazole Sodium [Protonix] 40 mg PO QHS 03/29/17 Potassium Chloride 10 meq PO DAILY 03/29/17 Insulin Aspart [Novolog Flexpen] 10 unit SUBCUT AC 05/06/17 Loperamide HCl [Imodium A-D] 4 mg PO ASDIR PRN MDD 8 MG 05/07/17 Melatonin 1 mg PO HSP PRN 05/07/17 Albuterol Sulfate [Ventolin 0.083% Neb 2.5 mg/3 mL Ampul] 2.5 mg NEB Q6H PRN Ascorbic Acid [Vitamin C] 500 mg PO BID 08/13/17 Bismuth Subsalicylate [Pepto-Bismol Susp 524 mg/30 ml Udcup] 1 dose PO Q4H PRN 08/13/17 Calcium Carbonate/Vitamin D3 [Calcium 500-Vit D3 400 Tablet] 1 tab PO BID Ferrous Sulfate 1 tab PO BID 08/13/17 Glycopyrrolate/Formoterol Fum [Bevespi Aerosphere Inhaler] 4.8 mcg IH BID Guaifenesin/D-Methorphan Hb [Robitussin-Dm Syrup 10 ml Udcup] 10 ml PO Q4H PRN 08/13/17 Fluticasone Propionate [Flonase Nasal Azle 50 Mcg/Azle 16 gm] 2 spray NASL Q12 #0 spray.pump 08/17/17 Fluticasone/Salmeterol [Advair 250-50 Diskus 14 Dose/Diskus] 1 inh IH Q12 #1 inhaler 08/17/17 Guaifenesin [Mucinex Sr 600 mg Tablet.sa] 1,200 mg PO Q12 #10 tablet.sa Insulin Glargine,Hum.rec.anlog [Lantus Insulin 100 Unit/mL] 45 unit SUBCUT QHS # 1 insuln.pen 08/17/17 Fluoxetine HCl [Prozac 20 mg Capsule] 20 mg PO DAILY 01/12/18 Umeclidinium [place] [Incruse Ellipta] 1 puff IH DAILY 09/28/17 Levofloxacin [Levaquin 500 mg Tablet] 500 mg PO DAILY #3 tablet 09/30/17 Methylprednisolone [Medrol Dosepack (4 mg/Tab) 21 Tab/Dosepak] 4 mg PO ASDIR PRN #21 tab.ds.pk 09/30/17 Allergies/Adverse Reactions: No Known Allergies Allergy (Verified 12/23/17 18:07) Review of Systems Constitutional: PRESENT: as per HPI Eyes: PRESENT: as per HPI Nose, Mouth, and Throat: PRESENT: as per HPI Gastrointestinal: PRESENT: as per HPI Neurological: PRESENT: as per HPI Physical Exam Vital Signs: Temp Pulse Resp BP Pulse Ox 98 F 95 24 H 110/92 H 96 12/23/17 18:16 12/23/17 17:19 12/23/17 17:19 12/23/17 17:19 12/23/17 17:19 General appearance: PRESENT: mild distress Head exam: PRESENT: atraumatic, normocephalic Respiratory exam: PRESENT: crackles - Left lung Cardiovascular exam: PRESENT: RRR. ABSENT: diastolic murmur, rubs, systolic murmur Results Impressions: Chest X-Ray 12/23/17 17:17 IMPRESSION: CHRONIC CHANGES. NO ACUTE RADIOGRAPHIC FINDING IN THE CHEST. 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 Repeat CBC, BMP, lactic acid and sputum culture. (2) Acute exacerbation of chronic obstructive pulmonary disease (COPD) Plan: Patient has been started on low-dose Solu-Medrol, DuoNeb and supplemental oxygen. (3) History of CHF (congestive heart failure) Plan: I will continue her home cardiac medications and will be cautious with fluid administration. (4) Coronary artery disease Qualifiers: Coronary Disease-Associated Artery/Lesion type: [place] artery [place] vs. transplanted heart: [place] heart Associated angina: without angina Qualified Code(s): I25.10 - Atherosclerotic heart disease of [place] coronary artery without angina pectoris Is this a current diagnosis for this admission?: Yes Plan: Patient does not have chest pain. Continue her home medications. (5) Sepsis Qualifiers: Sepsis type: sepsis due to unspecified organism Qualified Code(s): A41.9 - Sepsis, unspecified organism Is this a current diagnosis for this admission?: Yes Plan: Patient has fever, leukocytosis and elevated lactic acid level. The same management #1 - Time Time Spent: 30 to 50 Minutes - Inpatient Certification Medical Necessity: Need for IV Antibiotics
[2017-12-23] MEDS ORDERED: METHYLPREDNISOLONE INJ 40 MG/1 ML SDV IV ONE (22:00)
[2017-12-23] MEDS ORDERED: VANCOMYCIN HCL INJ 1000 MG VIAL IV PRN (22:05)
[2017-12-23] MEDS ORDERED: VANCOMYCIN HCL 1,000 MG in DEXTROSE 5%-WATER 250 ML IV ONE (22:15)
[2017-12-23] MEDS: IPRATROPIUM/ALBUTEROL 0.5-2.5 MG/3 ML AMPUL NEB SCH (23:43)
[2017-12-24] MEDS ORDERED: INSULIN LISPRO 100 UNIT/ML 3 ML VIAL SUBCUT ONE (00:08)
[2017-12-24] MEDS: IPRATROPIUM/ALBUTEROL 0.5-2.5 MG/3 ML AMPUL NEB SCH ×6 (03:56→23:41)
[2017-12-24] MEDS ORDERED: GLUCAGON,HUMAN RECOMB 1 MG INJ IM PRN (05:07)
[2017-12-24] MEDS ORDERED: DEXTROSE 40% GEL 15 GM TUBE PO PRN (05:07)
[2017-12-24] MEDS ORDERED: DEXTROSE 40% GEL 15 GM TUBE X 2 PO PRN (05:07)
[2017-12-24] MEDS ORDERED: DEXTROSE 50%-WATER SYRINGE 25 GM/50 ML DOSE IV PRN (05:07)
[2017-12-24] MEDS ORDERED: DEXTROSE 50%-WATER SYRINGE 12.5 GM/25 ML DOSE IV PRN (05:07)
[2017-12-24] MEDS ORDERED: LANSOPRAZOLE 30 MG TAB.RAP.DR PO SCH (06:00)
[2017-12-24] MEDS ORDERED: METHYLPREDNISOLONE INJ 40 MG/1 ML SDV IV SCH ×2 (06:00→18:00)
[2017-12-24] MEDS: INSULIN LISPRO 100 UNIT/ML 3 ML VIAL SUBCUT PRN ×5 (06:02→22:13)
[2017-12-24 06:24] LABS: ABSOLUTE LYMPHOCYTES (AUTO) 0.8 10^3/uL (0.5-4.7); ABSOLUTE MONOCYTES (AUTO) 0.2 10^3/uL (0.1-1.4); ABSOLUTE NEUT (AUTO) 8.8 10^3/uL (1.7-8.2); BASOPHILS % (AUTO) 0.1 % (0-2); HEMATOCRIT 35.6 % (36.0-47.0); HEMOGLOBIN 11.5 g/dL (12.0-15.5); LYMPHOCYTES % (AUTO) 7.8 % (13-45); MEAN CORPUSCULAR HEMOGLOBIN 25.7 pg (27.0-33.4); MEAN CORPUSCULAR HGB CONC 32.3 g/dL (32.0-36.0); MEAN CORPUSCULAR VOLUME 80 fl (80-97); MONOCYTES % (AUTO) 1.9 % (3-13); PLATELET COUNT 302 10^3/uL (150-450); RED BLOOD COUNT 4.46 10^6/uL (3.72-5.28); SEGMENTED NEUTROPHILS % (AUTO) 90.2 % (42-78); TOTAL CELLS COUNTED % (AUTO) 100 %; WHITE BLOOD COUNT 9.8 10^3/uL (4.0-10.5)
[2017-12-24 06:43] LABS: ANION GAP 12 (5-19); BLOOD UREA NITROGEN 15 mg/dL (7-20); CALCIUM 9.4 mg/dL (8.4-10.2); CARBON DIOXIDE 28 mmol/L (22-30); CHLORIDE 99 mmol/L (98-107); POTASSIUM 3.8 mmol/L (3.6-5.0); SODIUM 138.5 mmol/L (137-145)
[2017-12-24 07:07] LABS: GLUCOSE 448 mg/dL (75-110)
[2017-12-24] MEDS: ENOXAPARIN SODIUM INJ 30 MG/0.3 ML DISP.SYRIN SUBCUT SCH (09:23)
[2017-12-24] MEDS: CEFEPIME 1 GM/D5W RTU 1 GM/50 ML RTUPB IV SCH ×2 (11:22→22:13)
[2017-12-24] MEDS ORDERED: CEFEPIME 1 GM/D5W RTU 1 GM/50 ML RTUPB IV ONE (11:30)
--- NOTE | 2017-12-24 13:30 | EKG REPORT ---
SEVERITY:- ABNORMAL ECG - SINUS RHYTHM PROBABLE LEFT ATRIAL ABNORMALITY BORDERLINE INFERIOR Q WAVES NONSPECIFIC T ABNORMALITIES, LATERAL LEADS PROLONGED QT INTERVAL : Confirmed by: Valerio Duarte MD 24-Dec-2017 13:29:19
[2017-12-24] MEDS: INSULIN LISPRO 100 UNIT/ML 3 ML VIAL SUBCUT SCH (15:39)
--- NOTE | 2017-12-24 15:52 | Physician Advisory Note ---
Physician Advisor ProgressNote .: Pursuant to the plan for [facility], I have reviewed the medical record for this patient. Physician Advisor Statement: Pt came in w/SOB worsening x2days, cough/sputum/fever 100.6, WBC 15.4, lactate 3.7, [id number] (after IVF en route), neg CXR, wheezes, rhonchi, crackles for ED. From facility. ECHO on 12/08/16 = nl EF, mild conc LVH, mild MR/TR. Please consider documenting, if you agree: 1. "PNA, suspect gram-negative/HCA type, evidenced by fever, cough, sputum, SOB , leukocytosis - despite negative CXR, which is felt to be negative initially due to " [intravascular volume depletion? Pneumonia still very early iin course? ...] 2. "Possible sepsis, ruled out clinically" [explains reasoning for keeping pt in hospital, & attending concerns, but pt overall not severely ill] OR: "Possible sepsis, due to ___ [pneumonia? acute bronchitis? ...], evidenced by fever, leukocytosis, elevated lactate level, with [any organ dysfunction due to sepsis] that is due to sepsis" 3. "Chronic Hypoxemic Respiratory Failure due to ____, requiring 2L O2 at baseline" [COPD? CHF? both?] 4. "Chronic diastolic CHF, no acute exacerbation" OR: "h/o type CHF, now resolved & no longer needing tx/monitoring" ( i.e. EF used to be 35%, but with tx, has returned to WNL so systolic CHF has resolved; if pt still has it, avoid saying "h/o", since this is what "h/o" means to chart auditors) 5. "Acute hyponatremia, likely due to , resolved" 6. Status/medical necessity: Please continue to document daily the reasons pt is not yet safe for d/c, such as "Respiratory status not back to baseline yet", "I AM CONCERNED about ", "Still needing " [which isn't available outside hospital], .... Status: appropriate for Inpatient status. Very elderly Medicare pt, with multiple concerning co-morbidities, high risk for further decompensation, extremely unlikely to be ready for d/c before 2nd MN. Thanks! CK
[2017-12-24] MEDS ORDERED: VANCOMYCIN HCL 1,000 MG in DEXTROSE 5%-WATER 250 ML IV SCH (18:00)
[2017-12-24] MEDS ORDERED: INSULIN GLARGINE,HUM.REC.ANLOG 1,000 UNIT/10 ML UNIT SUBCUT SCH (22:00)
[2017-12-24] MEDS: GUAIFENESIN 600 MG TABLET.SA PO SCH (22:12)
[2017-12-24] MEDS: INSULIN GLARGINE,HUM.REC.ANLOG 300 UNIT/3 ML INSULN.PEN SUBCUT SCH (22:13)
[2017-12-25] MEDS: IPRATROPIUM/ALBUTEROL 0.5-2.5 MG/3 ML AMPUL NEB SCH ×5 (03:17→19:53)
[2017-12-25] MEDS ORDERED: BENZOCAINE/MENTHOL SORE THROAT LOZENGE BUCCAL PRN ×2 (04:26→04:27)
--- NOTE | 2017-12-25 05:01 | PDOC PROGRESS REPORT ---
Subjective Progress Note for:: 12/24/17 Reason For Visit: PNEUMONIA Physical Exam Vital Signs: Temp Pulse Resp BP Pulse Ox 97.6 F 74 16 128/59 H 98 12/24/17 08:35 12/24/17 08:35 12/24/17 08:35 12/24/17 08:35 12/24/17 08:35 Intake & Output 12/23/17 12/24/17 12/25/17 06:59 06:59 06:59 Intake Total 595 Output Total 400 Balance 195 Weight 64.1 kg Results Laboratory Results: 12/24/17 05:46 12/24/17 05:46 12/24/17 12/24/17 05:46 05:46 WBC 9.8 RBC 4.46 Hgb 11.5 L Hct 35.6 L MCV 80 MCH 25.7 L MCHC 32.3 RDW 17.0 H Plt Count 302 Seg Neutrophils % 90.2 H Lymphocytes % 7.8 L Monocytes % 1.9 L Eosinophils % 0.0 Basophils % 0.1 Absolute Neutrophils 8.8 H Absolute Lymphocytes 0.8 Absolute Monocytes 0.2 Absolute Eosinophils 0.0 Absolute Basophils 0.0 Sodium 138.5 Potassium 3.8 Chloride 99 Carbon Dioxide 28 Anion Gap 12 BUN 15 Creatinine 0.86 Est GFR ( Amer) > 60 Est GFR (Non-Af Amer) > 60 Glucose 448 H* Calcium 9.4 Impressions: Chest X-Ray 12/23/17 17:17 IMPRESSION: CHRONIC CHANGES. NO ACUTE RADIOGRAPHIC FINDING IN THE CHEST. Assessment & Plan - Diagnosis (1) Acute exacerbation of chronic obstructive pulmonary disease (COPD) Is this a current diagnosis for this admission?: Yes Plan: Continue current treatment except to decrease IV steroids (2) Healthcare-associated pneumonia Is this a current diagnosis for this admission?: No Plan: This is a case of bronchitis in setting of exacerbation of COPD (3) Sepsis Qualifiers: Sepsis type: sepsis due to unspecified organism Qualified Code(s): A41.9 - Sepsis, unspecified organism Is this a current diagnosis for this admission?: No Plan: Findings point to bronchitis (4) Acute and chronic respiratory failure with hypoxia Is this a current diagnosis for this admission?: Yes Plan: Back to baseline (5) Acute bronchitis Qualifiers: Bronchitis organism: unspecified organism Qualified Code(s): J20.9 - Acute bronchitis, unspecified Is this a current diagnosis for this admission?: Yes Plan: Continue currrent treatment (6) Hyponatremia Is this a current diagnosis for this admission?: Yes Plan: Due to volume contraction. 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; 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 Is this a current diagnosis for this admission?: Yes Plan: Add lantus and premeal Humalog - Time Time Spent with patient: 15-24 minutes Medications reviewed and adjusted accordingly: Yes Anticipated discharge: Home with Homehealth Within: within 24 hours - Inpatient Certification Based on my medical assessment, after consideration of the patient's comorbidities, presenting symptoms, or acuity I expect that the services needed warrant INPATIENT care.: Yes I certify that my determination is in accordance with my understanding of Medicare's requirements for reasonable and necessary INPATIENT services [42 CFR 412.3e].: Yes Medical Necessity: Need For Continuous Telemetry Monitoring, Need for Nebulizer Therapy and Monitoring of Response
[2017-12-25] MEDS: LANSOPRAZOLE 30 MG TAB.RAP.DR PO SCH (06:04)
[2017-12-25] MEDS: INSULIN LISPRO 100 UNIT/ML 3 ML VIAL SUBCUT PRN ×2 (06:49→12:21)
[2017-12-25] MEDS ORDERED: INSULIN LISPRO 100 UNIT/ML 3 ML VIAL SUBCUT ONE (07:00)
[2017-12-25] MEDS: ENOXAPARIN SODIUM INJ 30 MG/0.3 ML DISP.SYRIN SUBCUT SCH (09:17)
[2017-12-25] MEDS: INSULIN LISPRO 100 UNIT/ML 3 ML VIAL SUBCUT SCH ×3 (09:17→17:59)
[2017-12-25] MEDS: GUAIFENESIN 600 MG TABLET.SA PO SCH ×2 (09:18→21:45)
[2017-12-25] MEDS: LEVOFLOXACIN 750 MG TABLET PO SCH (09:18)
[2017-12-25] MEDS ORDERED: BENZONATATE 100 MG CAPSULE PO PRN (15:25)
--- NOTE | 2017-12-25 18:31 | PDOC PROGRESS REPORT ---
Subjective Progress Note for:: 12/25/17 Subjective:: Patient relates that breathing is better. Nurse reports and as well I weakness patient experiencing moderate to severe shortness of breath when walking from the bathroom to her bed. Review of system All organ systems evaluated and negative except as in subjective All significant laboratories and diagnostics have been reviewed Reason For Visit: PNEUMONIA Physical Exam Vital Signs: Temp Pulse Resp BP Pulse Ox 98.1 F 79 16 107/60 99 12/25/17 07:15 12/25/17 14:00 12/25/17 12:06 12/25/17 07:15 12/25/17 12:06 Intake & Output 12/24/17 12/25/17 12/26/17 06:59 06:59 06:59 Intake Total 595 995 458 Output Total 400 500 Balance 195 495 458 Weight 64.1 kg 66.8 kg General appearance: PRESENT: cooperative, hard of hearing, mild distress Head exam: PRESENT: atraumatic, normocephalic Eye exam: PRESENT: conjunctiva pink, EOMI, PERRLA Ear exam: PRESENT: normal external ear exam Mouth exam: PRESENT: neck supple Neck exam: PRESENT: full ROM. ABSENT: JVD, lymphadenopathy, tenderness Respiratory exam: PRESENT: crackles, decreased breath sounds Cardiovascular exam: PRESENT: RRR. ABSENT: diastolic murmur, systolic murmur Vascular exam: PRESENT: normal capillary refill GI/Abdominal exam: PRESENT: normal bowel sounds, soft. ABSENT: tenderness Extremities exam: PRESENT: full ROM. ABSENT: pedal edema Musculoskeletal exam: PRESENT: ambulatory Neurological exam: PRESENT: alert, awake, oriented to person, oriented to place , oriented to time, oriented to situation Psychiatric exam: PRESENT: appropriate affect, normal mood Skin exam: PRESENT: intact, normal color Results Laboratory Results: 12/24/17 05:46 12/24/17 05:46 Impressions: Chest X-Ray 12/23/17 17:17 IMPRESSION: CHRONIC CHANGES. NO ACUTE RADIOGRAPHIC FINDING IN THE CHEST. Assessment & Plan - Diagnosis (1) Acute exacerbation of chronic obstructive pulmonary disease (COPD) Is this a current diagnosis for this admission?: Yes Plan: Continue nebulizer treatment. Order Levaquin due to bronchitis. To add Singulair and Daliresp to her regimen (2) Healthcare-associated pneumonia Is this a current diagnosis for this admission?: No Plan: This is a case of bronchitis in setting of exacerbation of COPD (3) Sepsis Qualifiers: Sepsis type: sepsis due to unspecified organism Qualified Code(s): A41.9 - Sepsis, unspecified organism Is this a current diagnosis for this admission?: No Plan: Findings point to bronchitis (4) Acute and chronic respiratory failure with hypoxia Is this a current diagnosis for this admission?: Yes Plan: Although patient relates that she feels better she still having significant respiratory distress when ambulating. Will continue supplementing oxygen and will try to wean off as tolerated (5) Acute bronchitis Qualifiers: Bronchitis organism: unspecified organism Qualified Code(s): J20.9 - Acute bronchitis, unspecified Is this a current diagnosis for this admission?: Yes Plan: Continue nebulizer treatment, mucolytic Levaquin. To add Tessalon Perles due to cough complaint (6) Hyponatremia Is this a current diagnosis for this admission?: Yes Plan: Due to volume contraction. 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 Hopefully to improve once off IV steroids - Time Time Spent with patient: 15-24 minutes Medications reviewed and adjusted accordingly: Yes Anticipated discharge: SNF Within: when bed available - Inpatient Certification Based on my medical assessment, after consideration of the patient's comorbidities, presenting symptoms, or acuity I expect that the services needed warrant INPATIENT care.: Yes I certify that my determination is in accordance with my understanding of Medicare's requirements for reasonable and necessary INPATIENT services [42 CFR 412.3e].: Yes Medical Necessity: Need Close Monitoring Due to Risk of Patient Decompensation, Need for Nebulizer Therapy and Monitoring of Response
[2017-12-25] MEDS: MONTELUKAST SODIUM 10 MG TABLET PO SCH (21:46)
[2017-12-25] MEDS: FLUTICASONE/SALMETEROL DISKUS 500-50 MCG/DOSE IH SCH (21:46)
[2017-12-25] MEDS: INSULIN GLARGINE,HUM.REC.ANLOG 300 UNIT/3 ML INSULN.PEN SUBCUT SCH (22:13)
[2017-12-26] MEDS: IPRATROPIUM/ALBUTEROL 0.5-2.5 MG/3 ML AMPUL NEB SCH ×6 (00:26→20:08)
[2017-12-26] MEDS: LANSOPRAZOLE 30 MG TAB.RAP.DR PO SCH (06:13)
[2017-12-26 07:29] LABS: ABSOLUTE EOSINOPHILS # (AUTO) 0.1 10^3/uL (0.0-0.6); ABSOLUTE LYMPHOCYTES (AUTO) 1.3 10^3/uL (0.5-4.7); ABSOLUTE MONOCYTES (AUTO) 0.8 10^3/uL (0.1-1.4); ABSOLUTE NEUT (AUTO) 5.1 10^3/uL (1.7-8.2); BASOPHILS % (AUTO) 0.6 % (0-2); EOSINOPHILS % (AUTO) 1.1 % (0-6); HEMATOCRIT 34.3 % (36.0-47.0); HEMOGLOBIN 11.1 g/dL (12.0-15.5); LYMPHOCYTES % (AUTO) 17.8 % (13-45); MEAN CORPUSCULAR HEMOGLOBIN 25.7 pg (27.0-33.4); MEAN CORPUSCULAR HGB CONC 32.5 g/dL (32.0-36.0); MEAN CORPUSCULAR VOLUME 79 fl (80-97); MONOCYTES % (AUTO) 11.2 % (3-13); PLATELET COUNT 330 10^3/uL (150-450); RED BLOOD COUNT 4.33 10^6/uL (3.72-5.28); RED CELL DISTRIBUTION WIDTH 16.5 % (11.5-14.0); SEGMENTED NEUTROPHILS % (AUTO) 69.3 % (42-78); TOTAL CELLS COUNTED % (AUTO) 100 %; WHITE BLOOD COUNT 7.4 10^3/uL (4.0-10.5)
[2017-12-26 07:44] LABS: ANION GAP 8 (5-19); BLOOD UREA NITROGEN 20 mg/dL (7-20); CALCIUM 9.4 mg/dL (8.4-10.2); CARBON DIOXIDE 32 mmol/L (22-30); CHLORIDE 102 mmol/L (98-107); GLUCOSE 176 mg/dL (75-110); POTASSIUM 3.8 mmol/L (3.6-5.0)
[2017-12-26] MEDS: ROFLUMILAST 500 MCG TABLET PO SCH (09:05)
[2017-12-26] MEDS: INSULIN LISPRO 100 UNIT/ML 3 ML VIAL SUBCUT PRN (09:05)
[2017-12-26] MEDS: INSULIN LISPRO 100 UNIT/ML 3 ML VIAL SUBCUT SCH ×3 (09:05→16:28)
[2017-12-26] MEDS: ENOXAPARIN SODIUM INJ 30 MG/0.3 ML DISP.SYRIN SUBCUT SCH (09:05)
[2017-12-26] MEDS: GUAIFENESIN 600 MG TABLET.SA PO SCH ×2 (09:06→21:44)
[2017-12-26] MEDS: LEVOFLOXACIN 750 MG TABLET PO SCH (09:06)
[2017-12-26] MEDS: FLUTICASONE/SALMETEROL DISKUS 500-50 MCG/DOSE IH SCH ×2 (09:06→21:45)
[2017-12-26] MEDS ORDERED: BUTALB/ACETAMINOPHEN/CAFFEINE 1 TAB EACH PO PRN (16:43)
--- NOTE | 2017-12-26 18:00 | PDOC PROGRESS REPORT ---
Subjective Progress Note for:: 12/26/17 Subjective:: Patient relates that breathing is better. Review of system All organ systems evaluated and negative except as in subjective All significant laboratories and diagnostics have been reviewed Reason For Visit: PNEUMONIA Physical Exam Vital Signs: Temp Pulse Resp BP Pulse Ox 98.0 F 90 18 114/37 L 96 12/26/17 07:48 12/26/17 08:37 12/26/17 08:37 12/26/17 07:48 12/26/17 08:37 Intake & Output 12/25/17 12/26/17 12/27/17 06:59 06:59 06:59 Intake Total 995 1550 Output Total 500 Balance 495 1550 Weight 66.8 kg General appearance: PRESENT: cooperative, well-developed, well-nourished Head exam: PRESENT: atraumatic, normocephalic Eye exam: PRESENT: conjunctiva pink, EOMI, PERRLA Ear exam: PRESENT: normal external ear exam Mouth exam: PRESENT: moist Neck exam: PRESENT: full ROM. ABSENT: JVD, lymphadenopathy, tenderness Respiratory exam: PRESENT: other - Adequate movement of air with soft basilar crackles Cardiovascular exam: PRESENT: RRR. ABSENT: diastolic murmur, systolic murmur Vascular exam: PRESENT: normal capillary refill GI/Abdominal exam: PRESENT: normal bowel sounds, soft. ABSENT: tenderness Extremities exam: PRESENT: full ROM. ABSENT: pedal edema Musculoskeletal exam: PRESENT: ambulatory Neurological exam: PRESENT: alert, awake, oriented to person, oriented to place , oriented to time, oriented to situation, CN II-XII grossly intact Psychiatric exam: PRESENT: appropriate affect, normal mood Skin exam: PRESENT: intact, normal color Results Laboratory Results: 12/26/17 06:37 12/26/17 06:37 12/26/17 12/26/17 06:37 06:37 WBC 7.4 RBC 4.33 Hgb 11.1 L Hct 34.3 L MCV 79 L MCH 25.7 L MCHC 32.5 RDW 16.5 H Plt Count 330 Seg Neutrophils % 69.3 Lymphocytes % 17.8 Monocytes % 11.2 Eosinophils % 1.1 Basophils % 0.6 Absolute Neutrophils 5.1 Absolute Lymphocytes 1.3 Absolute Monocytes 0.8 Absolute Eosinophils 0.1 Absolute Basophils 0.0 Sodium 142.0 Potassium 3.8 Chloride 102 Carbon Dioxide 32 H Anion Gap 8 BUN 20 Creatinine 0.76 Est GFR ( Amer) > 60 Est GFR (Non-Af Amer) > 60 Glucose 176 H Calcium 9.4 Impressions: Chest X-Ray 12/23/17 17:17 IMPRESSION: CHRONIC CHANGES. NO ACUTE RADIOGRAPHIC FINDING IN THE CHEST. Assessment & Plan - Diagnosis (1) Acute exacerbation of chronic obstructive pulmonary disease (COPD) Is this a current diagnosis for this admission?: Yes Plan: Continue current management since improved. Of IV steroids (2) Healthcare-associated pneumonia Is this a current diagnosis for this admission?: No Plan: This is a case of bronchitis in setting of exacerbation of COPD (3) Sepsis Qualifiers: Sepsis type: sepsis due to unspecified organism Qualified Code(s): A41.9 - Sepsis, unspecified organism Is this a current diagnosis for this admission?: No Plan: Findings point to bronchitis (4) Acute and chronic respiratory failure with hypoxia Is this a current diagnosis for this admission?: Yes Plan: Back to baseline (5) Acute bronchitis Qualifiers: Bronchitis organism: unspecified organism Qualified Code(s): J20.9 - Acute bronchitis, unspecified Is this a current diagnosis for this admission?: Yes Plan: Continue nebulizer treatment, mucolytic, Levaquin and Tessalon Perles (6) Hyponatremia Is this a current diagnosis for this admission?: Yes Plan: Due to volume contraction. 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 Improved since off IV steroids - Time Time Spent with patient: 15-24 minutes Medications reviewed and adjusted accordingly: Yes Anticipated discharge: SNF Within: within 24 hours - Inpatient Certification Based on my medical assessment, after consideration of the patient's comorbidities, presenting symptoms, or acuity I expect that the services needed warrant INPATIENT care.: Yes I certify that my determination is in accordance with my understanding of Medicare's requirements for reasonable and necessary INPATIENT services [42 CFR 412.3e].: Yes Medical Necessity: Need Close Monitoring Due to Risk of Patient Decompensation
[2017-12-26] MEDS: MONTELUKAST SODIUM 10 MG TABLET PO SCH (21:44)
[2017-12-26] MEDS: INSULIN GLARGINE,HUM.REC.ANLOG 300 UNIT/3 ML INSULN.PEN SUBCUT SCH (21:45)
[2017-12-27] MEDS: IPRATROPIUM/ALBUTEROL 0.5-2.5 MG/3 ML AMPUL NEB SCH ×4 (00:30→11:46)
[2017-12-27] MEDS: LANSOPRAZOLE 30 MG TAB.RAP.DR PO SCH (05:34)
[2017-12-27] MEDS: INSULIN LISPRO 100 UNIT/ML 3 ML VIAL SUBCUT PRN ×2 (08:09→12:28)
[2017-12-27] MEDS: ROFLUMILAST 500 MCG TABLET PO SCH (09:29)
[2017-12-27] MEDS: LEVOFLOXACIN 750 MG TABLET PO SCH (09:29)
[2017-12-27] MEDS: GUAIFENESIN 600 MG TABLET.SA PO SCH (09:29)
[2017-12-27] MEDS: FLUTICASONE/SALMETEROL DISKUS 500-50 MCG/DOSE IH SCH (09:29)
[2017-12-27] MEDS: ENOXAPARIN SODIUM INJ 30 MG/0.3 ML DISP.SYRIN SUBCUT SCH (09:29)
[2017-12-27] MEDS: INSULIN LISPRO 100 UNIT/ML 3 ML VIAL SUBCUT SCH ×2 (09:30→12:28)
--- NOTE | 2017-12-27 13:24 | PDOC TRANSFER SUMMARY ---
General - Admit/Disc Date/PCP Admission Date/Primary Care Provider: 12/23/17 21:30 KD CISNEROS PA-C Discharge Date: 12/27/17 - Discharge Diagnosis (1) Acute and chronic respiratory failure with hypoxia Is this a current diagnosis for this admission?: Yes (2) Acute exacerbation of chronic obstructive pulmonary disease (COPD) Is this a current diagnosis for this admission?: Yes (3) Acute bronchitis Is this a current diagnosis for this admission?: Yes (4) Hyponatremia Is this a current diagnosis for this admission?: Yes (5) PAF (paroxysmal atrial fibrillation) Is this a current diagnosis for this admission?: Yes (6) Type 2 diabetes mellitus Is this a current diagnosis for this admission?: Yes (7) Acidosis, lactic Is this a current diagnosis for this admission?: Yes (8) Atrial fibrillation Is this a current diagnosis for this admission?: Yes - Additional Information Resuscitation Status: Full Code Discharge Diet: Cardiac, Diabetic Discharge Activity: Activity As Tolerated Home Medications: Albuterol Sulfate [Ventolin 0.083% Neb 2.5 mg/3 mL Ampul] 3 ml NEB [id number] PRN Ascorbic Acid [Vitamin C 500 mg Tablet] 500 mg PO BID 12/24/17 Atorvastatin Calcium [Lipitor 40 mg Tablet] 40 mg PO QHS 12/24/17 Bismuth Subsalicylate [Pepto-Bismol Susp 524 mg/30 ml Udcup] 30 ml PO Q4HP PRN 12/24/17 Calcium Carbonate/Vitamin D3 [Calcium 500 + Vit D Caplet] 1 tab PO BID 12/24/17 Docusate Sodium [Colace 100 mg Capsule] 100 mg PO BID 12/24/17 Dronedarone Hydrochloride [Multaq 400 mg Tablet] 400 mg PO Q12 12/24/17 Ergocalciferol (Vitamin D2) [Drisdol 50,000 unit (1.25MG) Capsule] 50,000 unit PO MO 12/24/17 Ferrous Sulfate [Feosol 325 mg Tablet] 325 mg PO BID 12/24/17 Fluoxetine HCl [Prozac 20 mg Capsule] 20 mg PO DAILY 12/24/17 Furosemide [Lasix 20 mg Tablet] 20 mg PO DAILY 12/24/17 Guaifenesin [Mucinex] 1,200 mg PO Q12 12/24/17 Insulin Aspart [Novolog Flexpen] 10 units SQ MEALS 12/24/17 Insulin Glargine,Hum.rec.anlog [Basaglar Kwikpen U-100] 40 units SQ QHS Levothyroxine Sodium [Synthroid] 50 mcg PO Q6AM 12/24/17 Loperamide HCl [Imodium 2 mg Capsule] 2 mg PO ASDIR PRN 12/24/17 Melatonin/Pyridoxine HCl (B6) [Melatonin 1 mg Tablet] 1 tab PO HSP PRN 12/24/17 Montelukast Sodium [Singulair 10 mg Tablet] 10 mg PO QHS 12/24/17 Pantoprazole Sodium [Protonix] 40 mg PO QHS 12/24/17 Potassium Chloride [Klor-Con M10] 10 mg PO DAILY 12/24/17 Benzonatate [Tessalon Perles 100 mg Capsule] 100 mg PO Q8HP PRN capsule Fluticasone/Salmeterol [Advair 500-50 Diskus 14 Dose/Diskus] 1 inh IH Q12 inhaler 12/27/17 Levofloxacin [Levaquin 750 mg Tablet] 750 mg PO DAILY tablet 12/27/17 Roflumilast [Daliresp 500 Mcg Tablet] 500 mcg PO DAILY tablet 12/27/17 History of Present Illness Admission Date/PCP: 12/23/17 21:30 KD CISNEROS PA-C History of Present Illness: JATINDER RODRIGUEZ is a 82 year old female patient with past medical history of lung CA, COPD, diabetes mellitus and coronary artery disease, brought from [facility] via EMS for cough and fever. She stated she has had lingering cough productive of whitish sputum for the last 6 weeks. Had been having fever for one day and reportedly she has a documented fever of 100.6. Her initial workup at the ER showed leukocytosis of 15,000 and her lactic acid was 3.7. Her chest x-ray was unremarkable. Patient denied any chest pain, palpitations, diaphoresis, nausea, vomiting, diarrhea or any urinary complaints. She did not have any orthopnea or paroxysmal nocturnal dyspnea, no headache or dizziness. Due to concerns of sepsis patient was admitted under the hospitalist service Hospital Course Hospital Course: On initial presentation there was a concern about healthcare associated pneumonia and sepsis. Both initial diagnoses were ruled out. Chest x-ray did not disclose any further infiltrate. Blood cultures were negative. Actually patient improved by the following day. After more extensive history gathering presentation was consistent with acute exacerbation of COPD with bronchitis. Lactic acidosis was attributed to dehydration We optimized respiratory status by using nebulizer treatments, mucolytic, intravenous steroids. We were able to wean patient off oxygen to 2 L by nasal cannula. Patient also appears to be having advanced COPD and we added Daliresp to her outpatient regimen. Blood sugars were transiently upset due to the use of IV steroids and improve once stopped. She is discharged on Levaquin witha stop date of December 30. Recommend incoming facility to work on end of life care including revisiting CODE STATUS with patient and family. Since patient had achieved maximum benefit of hospitalization stay prompted to discharge Physical Exam Vital Signs: Temp Pulse Resp BP Pulse Ox 97.9 F 79 16 109/43 L 97 12/27/17 08:43 12/27/17 08:44 12/27/17 08:44 12/27/17 08:43 12/27/17 08:44 Intake & Output 12/26/17 12/27/17 12/28/17 06:59 06:59 06:59 Intake Total 1550 1626 Output Total 300 Balance 1550 1326 Weight 66.9 kg General appearance: PRESENT: no acute distress, cooperative, well-developed, well-nourished Head exam: PRESENT: atraumatic, normocephalic Eye exam: PRESENT: conjunctiva pink, EOMI, PERRLA Mouth exam: PRESENT: moist Neck exam: PRESENT: full ROM. ABSENT: JVD, lymphadenopathy, tenderness Respiratory exam: PRESENT: clear to auscultation yaya Cardiovascular exam: PRESENT: irregular rhythm. ABSENT: diastolic murmur, systolic murmur Vascular exam: PRESENT: normal capillary refill GI/Abdominal exam: PRESENT: normal bowel sounds, soft. ABSENT: tenderness Extremities exam: PRESENT: full ROM. ABSENT: pedal edema Musculoskeletal exam: PRESENT: ambulatory Neurological exam: PRESENT: alert, awake, oriented to person, oriented to place , oriented to time, oriented to situation, CN II-XII grossly intact Psychiatric exam: PRESENT: appropriate affect, normal mood Skin exam: PRESENT: intact, normal color Results Laboratory Results: 12/26/17 06:37 12/26/17 06:37 12/24/17 10:41 Sputum Gram Stain - Final 12/24/17 10:41 Sputum Sputum Culture - Final C.albicans/C.dubliniensis Normal Linsey Impressions: Chest X-Ray 12/23/17 17:17 IMPRESSION: CHRONIC CHANGES. NO ACUTE RADIOGRAPHIC FINDING IN THE CHEST. Transfer Plan - Disposition Transfer Plan: To transfer to [facility] since stable - Time Spent with Patient Time spent with patient: Greater than 30 Minutes Qualifiers - * PATEINT BEING DISCHARGED WITH ANY OF THE FOLLOWING DIAGNOSIS?: No Plan Discharge Plan: Transfer to [facility] since stable Time Spent: Greater than 30 Minutes
[2017-12-27 15:37] VITALS: BP 111/95
== END 2017-12-27 15:54 | DRG 190 ==
LOC: ER 16:55 → EH 21:30 → 3S 12-24 01:15
PROVIDERS: ADMIT Internal Medicine; ATTEND Internal Medicine
PROC: 3E0F73Z Introduction of Anti-inflammatory into Respiratory Tract, Via Natural or Artificial Opening (ICD-10-PCS; principal; 2017-12-23)
DX: J44.1 Chronic obstructive pulmonary disease with (acute) exacerbation (principal); J96.21 Acute and chronic respiratory failure with hypoxia; E87.1 Hypo-osmolality and hyponatremia; E87.2 Acidosis; J20.9 Acute bronchitis, unspecified; J44.0 Chronic obstructive pulmonary disease with (acute) lower respiratory infection; E86.0 Dehydration; E11.9 Type 2 diabetes mellitus without complications; I11.0 Hypertensive heart disease with heart failure; I50.9 Heart failure, unspecified; E03.9 Hypothyroidism, unspecified; E78.5 Hyperlipidemia, unspecified; I48.0 Paroxysmal atrial fibrillation; I25.10 Atherosclerotic heart disease of native coronary artery without angina pectoris; Z79.899 Other long term (current) drug therapy; Z90.49 Acquired absence of other specified parts of digestive tract; Z90.710 Acquired absence of both cervix and uterus; Z79.4 Long term (current) use of insulin; Z79.51 Long term (current) use of inhaled steroids; Z85.118 Personal history of other malignant neoplasm of bronchus and lung; Z87.891 Personal history of nicotine dependence; Z82.5 Family history of asthma and other chronic lower respiratory diseases; Z80.9 Family history of malignant neoplasm, unspecified; Z99.81 Dependence on supplemental oxygen
CPT/HCPCS: 36415; 71046; 80048; 80053; 81001; 82550; 82553; 82803; 82962; 83036; 83605; 83880; 84484; 85025; 85610; 87040; 87070; 87086; 87205; 93005; 93010; 96365; 99285; J0692; J1650; J1815; J2543; J2920; J3370; J3490; J7060; J7620

== ENCOUNTER 2018-02-11 13:28 | Emergency (ER) | payer MEDICARE, MEDICAID ==
[2018-02-11] MEDS ORDERED: FENTANYL CITRATE INJ/PF 100 MCG/2 ML AMPUL IV ONE ×2 (13:50→15:28)
[2018-02-11] MEDS ORDERED: ONDANSETRON 4 MG TAB.RAPDIS PO ONE ×2 (13:50→16:35)
--- NOTE | 2018-02-11 14:34 | ER Document Report ---
ED Fall - General Chief Complaint: Fall Stated Complaint: FALL Time Seen by Provider: 02/11/18 13:36 Notes: Chief complaint: fall with head injury History of complain:( obtained from----patient) 83 years old female who woke up this morning get up out of the bed slipped and fell on her right side of the forehead. Since then having pain swelling on and disruption of the skin over the right forehead, black and blue discoloration of the periorbital region. Complain of pain over the right chest wall. Denies any loss of consciousness. Focal weakness numbness tingling sensation. Denies any headache, denies any neck pain neck stiffness, denies any nausea vomiting. Denies any pain over the upper limbs or lower limbs. Onset: As above sudden ,just prior to arrival Duration: Chest prior to arrival Severity: Moderate Quality: Sharp Context: Tripped Exacerbating factor and relieving factors: Any change of position or sitting up hurts her right side of the chest. Laying flat somewhat relieved the pain. REVIEW OF SYSTEMS: CONSTITUTIONAL : Denies fever, chills, or sweats. Denies recent illness. EENT: Denies eye, ear, throat, or mouth pain or symptoms. Denies nasal or sinus congestion or discharge. Denies throat, tongue, or mouth swelling or difficulty swallowing. CARDIOVASCULAR: Denies chest pain. Denies palpitations or racing or irregular heart beat. Denies ankle edema. RESPIRATORY: Denies cough, cold, or chest congestion. Denies shortness of breath, difficulty breathing, or wheezing. GASTROINTESTINAL: Denies distention. Denies nausea, vomiting, or diarrhea. Denies blood in vomitus, stools, or per rectum. Denies black, tarry stools. Denies constipation. GENITOURINARY: Denies difficulty urinating, painful urination, burning, frequency, blood in urine, or discharge. FEMALE GENITOURINARY: Denies vaginal bleeding, heavy or abnormal periods, irregular periods. Denies vaginal discharge or odor. MUSCULOSKELETAL: As per history. HEMATOLOGIC : Denies easy bruising or bleeding. LYMPHATIC: Denies swollen, enlarged glands. NEUROLOGICAL: Denies confusion or altered mental status. Denies passing out or loss of consciousness. Denies dizziness or lightheadedness. Denies headache. Denies weakness or paralysis or loss of use of either side. Denies problems with gait or speech. Denies sensory loss, numbness, or tingling. Denies seizures. PSYCHIATRIC: Denies anxiety or stress. Denies depression, suicidal ideation, or homicidal ideation. ALL OTHER SYSTEMS REVIEWED AND NEGATIVE. PHYSICAL EXAMINATION: GENERAL: Well-appearing, well-nourished and in no acute distress. HEAD: Right forehead swelling, disruption of the skin, contusion noted. EYES: Pupils equal round and reactive to light, extraocular movements intact, conjunctiva are normal. Right periorbital discoloration and tenderness noted ENT: Nares patent, oropharynx clear without exudates. Moist mucous membranes. NECK: Normal range of motion, supple without lymphadenopathy Chest wall-sharp chest wall tenderness noted diffusely over the right side of the lung LUNGS: Breath sounds clear to auscultation bilaterally and equal. No wheezes rales or rhonchi. HEART: Regular rate and rhythm without murmurs ABDOMEN: Soft, nontender, nondistended abdomen. No guarding, no rebound. No masses appreciated. Examination of genitals-deferred Musculoskeletal: Normal range of motion, no pitting or edema. No cyanosis. There is no trauma noted in the upper limbs or lower limbs. Hips she was able to flex and extend within normal range on both sides without any discomfort. NEUROLOGICAL: Cranial nerves grossly intact. Normal speech, normal gait. Normal sensory, motor exams PSYCH: Normal mood, normal affect. SKIN: Warm, Dry, normal turgor, no rashes or lesions noted. Dictation was performed using [employer] voice recognition software TRAVEL OUTSIDE OF THE [place] IN LAST 30 DAYS: No - Related data Allergies/Adverse Reactions: No Known Allergies Allergy (Verified 12/23/17 18:07) Past Medical History - General Information source: Patient, Relative - Social History Smoking Status: Never Smoker Cigarette use (# per day): No Chew tobacco use (# tins/day): No Smoking Education Provided: No Frequency of alcohol use: Rare Lives with: Family Family History: Reviewed & Not Pertinent, COPD, Malignancy - Past Medical History Cardiac Medical History: Reports: Hx Congestive Heart Failure, Hx Coronary Artery Disease, Hx Hypercholesterolemia, Hx Hypertension Denies: Hx DVT, Hx Pulmonary Embolism Pulmonary Medical History: Reports: Hx COPD Denies: Hx Asthma, Hx Sleep Apnea Neurological Medical History: Denies: Hx Seizures Endocrine Medical History: Reports: Hx Diabetes Mellitus Type 2, Hx Hypothyroidism. Denies: Hx Hyperthyroidism Renal/ Medical History: Denies: Hx Peritoneal Dialysis Malignancy Medical History: Reports: Hx Lung Cancer GI Medical History: Denies: Hx Cirrhosis, Hx Gastroesophageal Reflux Disease, Hx Hepatitis Psychiatric Medical History: Denies: Hx Depression Infectious Medical History: Denies: Hx C-Diff, Hx Hepatitis, Hx MRSA Past Surgical History: Reports: Hx Appendectomy, Hx Hysterectomy - Immunizations Hx Diphtheria, Pertussis, Tetanus Vaccination: Yes Review of Systems - Review of Systems Notes: Dictated Physical Exam - Notes Notes: Dictated Course - Re-evaluation Re-evalutation: 02/11/18 16:29 Findings were discussed with patient and her son. - Laboratory Laboratory results interpreted by me: 02/11/18 15:27 Urine Ascorbic Acid 40 H - Diagnostic Test Radiology reviewed: Reports reviewed - Radiology report reviewed has a orbital floor fracture as well as a right C6-7 eighth rib fracture. Discharge - Discharge Clinical Impression: Fall Qualifiers: Encounter type: initial encounter Qualified Code(s): W19.XXXA - Unspecified fall, initial encounter Rib fracture Qualifiers: Encounter type: initial encounter Rib fracture type: multiple ribs Fracture type: closed Laterality: right Qualified Code(s): S22.41XA - Multiple fractures of ribs, right side, initial encounter for closed fracture Orbital floor fracture Qualifiers: Encounter type: initial encounter Fracture type: closed Laterality: right Qualified Code(s): S02.31XA - Fracture of orbital floor, right side, initial encounter for closed fracture Condition: Fair Disposition: HOME, SELF-CARE Instructions: Rib Injuries and Fractures ([facility]), Eye Socket Trauma ([facility]) Prescriptions: Hydrocodone/Acetaminophen [[place] 5-325 mg Tablet] 1 tab PO Q8 #20 tablet
--- NOTE | 2018-02-11 14:44 | RADIOLOGY REPORT (SQ) ---
EXAM DESCRIPTION: CT HEAD WITHOUT COMPLETED DATE/TIME: 02/11/2018 2:34 pm REASON FOR STUDY: Fall head injury, facial injury, chest wall injury COMPARISON: 08/27/2017 TECHNIQUE: Axial images acquired through the brain without intravenous contrast. Images reviewed wi th bone, brain and subdural windows. Additional sagittal and coronal reconstructions were generated. Images stored on PACS. All CT scanners at this facility use dose modulation, iterative reconstruction, and/or weight based d osing when appropriate to reduce radiation dose to as low as reasonably achievable (ALARA). [facility]: Dose Right [facility]: CareDose [facility]: Dose Right [facility]: Teradose 4D [facility]: Smart [employer] RADIATION DOSE: CT Rad equipment meets quality standard of care and radiation dose reduction techniq ues were employed. CTDIvol: 53.2 mGy. DLP: 937 mGy-cm.mGy. LIMITATIONS: None. FINDINGS: VENTRICLES: Prominent. CEREBRUM: No masses. No hemorrhage. No midline shift. Areas of low density in the white matter mos t likely due to chronic micro-vascular ischemic change. No evidence for acute infarction. CEREBELLUM: No masses. No hemorrhage. No alteration of density. No evidence for acute infarction. EXTRAAXIAL SPACES: Age-related involutional change. No fluid collections. No masses. ORBITS AND GLOBE: No intra- or extraconal masses. Normal contour of globe without masses. CALVARIUM: No fracture. PARANASAL SINUSES: Fluid right maxillary sinus. SOFT TISSUES: Right frontal scalp hematoma. OTHER: No other significant finding. IMPRESSION: CHRONIC CHANGES OF ATROPHY AND MICROVASCULAR ISCHEMIA. NO ACUTE PROCESS. EVIDENCE OF ACUTE STROKE: NO. TECHNICAL DOCUMENTATION: JOB ID: [id number] Quality ID # 436: Final reports with documentation of one or more dose reduction techniques (e.g., Au tomated exposure control, adjustment of the mA and/or kV according to patient size, use of iterative reconstruction technique) 2010 [employer]- All Rights Reserved Reading location - IP/workstation name: [email or web address]
--- NOTE | 2018-02-11 14:47 | RADIOLOGY REPORT (SQ) ---
EXAM DESCRIPTION: CT FACIAL AREA WITHOUT COMPLETED DATE/TIME: 02/11/2018 2:34 pm REASON FOR STUDY: Fall head injury, facial injury, chest wall injury COMPARISON: None. TECHNIQUE: Noncontrasted images through the facial bones and orbits windowed for bone and soft tissu e. Additional coronal and sagittal reconstructed images reviewed. All images stored on PACS. All CT scanners at this facility use dose modulation, iterative reconstruction, and/or weight based d osing when appropriate to reduce radiation dose to as low as reasonably achievable (ALARA). [facility]: Dose Right [facility]: CareDose [facility]: Dose Right [facility]: Teradose 4D [facility]: [employer] RADIATION DOSE: CT Rad equipment meets quality standard of care and radiation dose reduction techniq ues were employed. CTDIvol: 30.4 mGy. DLP: 589 mGy-cm. mGy. LIMITATIONS: None. FINDINGS: FACIAL BONES: Minimally displaced fracture of the floor of the right orbit. ORBITS: No evidence of extraocular roughly entrapment. PARANASAL SINUSES: Fluid in the right maxillary sinus. SOFT TISSUES: Right periorbital hematoma. INFERIOR BRAIN: See separate report same date. OTHER: No other significant finding. IMPRESSION: Fracture of the right orbital floor. TECHNICAL DOCUMENTATION: JOB ID: [id number] Quality ID # [id number]: Final reports with documentation of one or more dose reduction techniques (e.g., Au tomated exposure control, adjustment of the mA and/or kV according to patient size, use of iterative reconstruction technique) 2010 [employer]- All Rights Reserved Reading location - IP/workstation name: [email or web address]
--- NOTE | 2018-02-11 14:52 | RADIOLOGY REPORT (SQ) ---
EXAM DESCRIPTION: CT CHEST WITHOUT COMPLETED DATE/TIME: 02/11/2018 2:34 pm REASON FOR STUDY: Fall head injury, facial injury, chest wall injury COMPARISON: Multiple, most recent 12/20/2016 TECHNIQUE: CT scan performed of the chest without intravenous contrast. Images reviewed with lung, soft tissue and bone windows. Reconstructed coronal and sagittal MPR images reviewed. All images st ored on PACS. All CT scanners at this facility use dose modulation, iterative reconstruction, and/or weight based d osing when appropriate to reduce radiation dose to as low as reasonably achievable (ALARA). [facility]: Dose Right [facility]: CareDose [facility]: Dose Right [facility]: Teradose 4D [facility]: Smart [employer] RADIATION DOSE: CT Rad equipment meets quality standard of care and radiation dose reduction techniq ues were employed. CTDIvol: 14.4 mGy. DLP: 572 mGy-cm. mGy. LIMITATIONS: No technical limitations. FINDINGS: LUNGS AND PLEURA: Interval increase in size of right upper lobe spiculated nodule previous ly 4 x 12 mm, canal 15 x 15 mm chronic pleural and parenchymal scarring in the left lower lobe. No e vidence of pulmonary contusion or pneumothorax. HILAR AND MEDIASTINAL STRUCTURES: No identified masses or abnormal nodes. No obvious aneurysm. HEART AND VASCULAR STRUCTURES: Stable appearance. UPPER ABDOMEN: No significant findings. Limited exam. THYROID AND OTHER SOFT TISSUES: No masses. No adenopathy. BONES: Osteopenia. Acute fractures right 6th 7th and 8th posterolateral ribs. Chronic compression f racture L2. Progression of compression deformity of T11 since the prior. Approximately 30% height l oss. No significant retropulsion. HARDWARE: None in the chest. OTHER: No other significant findings. IMPRESSION: 1. Acute fractures right 6th, 7th and 8th posterolateral ribs. No evidence of pulmonary contusion or pneumothorax. 2. Interval increase in size of spiculated nodule in the right upper lobe. TECHNICAL DOCUMENTATION: JOB ID: [id number] Quality ID # 436: Final reports with documentation of one or more dose reduction techniques (e.g., Au tomated exposure control, adjustment of the mA and/or kV according to patient size, use of iterative reconstruction technique) 2010 [employer]- All Rights Reserved Reading location - IP/workstation name: [email or web address]
--- NOTE | 2018-02-11 15:01 | RADIOLOGY REPORT (SQ) ---
EXAM DESCRIPTION: CT LUMBAR SPINE WITHOUT COMPLETED DATE/TIME: 02/11/2018 2:34 pm REASON FOR STUDY: Fall head injury, facial injury, chest wall injury COMPARISON: 05/06/2017 TECHNIQUE: Axial images acquired through the lumbar spine without intravenous contrast. Images revi ewed with lung, soft tissue and bone windows. Reconstructed coronal and sagittal MPR images reviewed . All images stored on PACS. All CT scanners at this facility use dose modulation, iterative reconstruction, and/or weight based d osing when appropriate to reduce radiation dose to as low as reasonably achievable (ALARA). [facility]: Dose Right [facility]: CareDose [facility]: Dose Right [facility]: Teradose 4D [facility]: [employer] RADIATION DOSE: mGy. LIMITATIONS: None. FINDINGS: SEGMENTATION: Normal. No transitional anatomy. ALIGNMENT: Normal. VERTEBRAL BODIES: Stable compression changes are present at L2. There is progression of L5 compressi on since 05/06/2017. There is superior endplate compression at L4 which is new since 2017 but does no t appear to be acute. DISCS: There is retropulsion of bone at L2 that encroaches upon the spinal canal but there is no sign ificant central canal or foraminal stenosis. No interval change. There is mild retropulsion of bone in the midline involving the superior aspect L5. This results in mild central canal stenosis. PEDICLES, TRANSVERSE PROCESSES: No fractures. No dislocation. No acute findings. FACETS, POSTERIOR ELEMENTS: Hypertrophic facet changes are present from L3-S1. HARDWARE: None in the spine. VISUALIZED RIBS: No fractures. SOFT TISSUES: No significant or acute finding in adjacent soft tissues. OTHER: No other significant finding. IMPRESSION: There are osteoporotic compression changes in the lumbar spine, including findings that represent change since 05/06/2017 but that do not appear to be acute. There is slight encroachment up on the spinal canal at 2 levels secondary to retropulsion of bone, but there does not appear to be si gnificant stenosis associated with this. TECHNICAL DOCUMENTATION: JOB ID: [id number] Quality ID # 436: Final reports with documentation of one or more dose reduction techniques (e.g., Au tomated exposure control, adjustment of the mA and/or kV according to patient size, use of iterative reconstruction technique) 2010 [employer]- All Rights Reserved Reading location - IP/workstation name: [email or web address]
[2018-02-11 15:45] LABS: APPEARANCE,URINE CLEAR; BILIRUBIN,URINE NEGATIVE (NEGATIVE); COLOR,URINE STRAW; GLUCOSE, URINE NEGATIVE (NEGATIVE); KETONES,URINE NEGATIVE (NEGATIVE); LEUKOCYTE ESTERASE,URINE NEGATIVE (NEGATIVE); NITRITE,URINE NEGATIVE (NEGATIVE); PROTEIN,URINE NEGATIVE (NEGATIVE); URINE SPECIFIC GRAVITY 1.009; UROBILINOGEN,URINE NEGATIVE mg/dL (<2.0)
[2018-02-11 17:48] VITALS: BP 122/75
== END 2018-02-11 17:20 | disposition home or self-care (01) ==
LOC: ER 13:28
DX: S22.41XA Multiple fractures of ribs, right side, initial encounter for closed fracture (principal); S02.31XA Fracture of orbital floor, right side, initial encounter for closed fracture; S00.83XA Contusion of other part of head, initial encounter; R22.0 Localized swelling, mass and lump, head; R07.89 Other chest pain; R20.0 Anesthesia of skin; W01.0XXA Fall on same level from slipping, tripping and stumbling without subsequent striking against object, initial encounter; I25.10 Atherosclerotic heart disease of native coronary artery without angina pectoris; I10 Essential (primary) hypertension; J44.9 Chronic obstructive pulmonary disease, unspecified; E11.9 Type 2 diabetes mellitus without complications
CPT/HCPCS: 96376; 99284; 96374; 81001; 70450; 70486; 71250; 72131; A9270; J3010; S0119

== ENCOUNTER 2018-05-13 07:42 | Day surgery (SDC) | payer MEDICARE, MEDICAID ==
[~2018-05-13 07:42] MED LIST: EPINEPHRINE INJ/PF 1 MG/1 ML AMPULE ONE; KETOROLAC TROMETHAMINE 0.45% 4 DROP/0.4 ML DROPERETTE OD PRN; LIDOCAINE 1% INJ-PF (10 MG/ML) 30 ML SDV ONE; LIDOCAINE 1%/PHENYLEPHRINE 1.5% 1 ML VIAL ONE; MIDAZOLAM 2 MG/2 ML INJ ONE
[2018-05-13] MEDS: TROPICAMIDE 1% OPH SOLN 3 ML OD PRN ×3 (08:17→08:40)
[2018-05-13] MEDS: TETRACAINE HCL 0.5% OPH SOLN 2 ML OD PRN ×3 (08:17→08:56)
[2018-05-13] MEDS: CYCLOPENTOLATE 0.2%/PHENYLEPHRINE 1% OPH SOLN 2 ML OD PRN ×3 (08:17→08:40)
[2018-05-13] MEDS: BESIFLOXACIN HCL 0.6% OPH SUSP 5 ML BOTTLE OD PRN ×3 (08:17→09:10)
[2018-05-13] MEDS: CHONDR SU A NA/HYALUR INTRAOC KIT (SURGICARE) ONE ×2 (09:01→09:10)
--- NOTE | 2018-05-13 16:41 | [facility] OPERATIVE REPORT E ---
[facility] Operative Report NAME: JATINDER RODRIGUEZ AGE: 83Y DATE OF SURGERY: 05/13/2018 ROOM: PREOPERATIVE DIAGNOSIS: CATARACT, RIGHT EYE. POSTOPERATIVE DIAGNOSIS: CATARACT, RIGHT EYE. OPERATION: Cataract extraction with insertion of an IOL of the right eye. SURGEON: LAITH COBURN M.D. ANESTHESIA: Topical. PROCEDURE: After obtaining appropriate consent, the patient's right eye was prepped and draped in sterile fashion as well as the surgeon in a sterile manner and cataract surgery was started. First a paracentesis blade was used to make a side-port incision. Viscoelastic was used to inflate the anterior chamber. Next a 2.4 mm incision was made with a 2.4 mm blade, clear corneal temporally. A continuous capsulorrhexis was made using a cystotome and Utrata forceps. Following this hydrodissection was carried out to make the lens fully loose and mobile and it was rotated 90 degrees. Following this, a tqjnkw-rsz-yphyirj technique was used to phacoemulsify the lens with a CDE of 23.34. The remaining cortex was removed with irrigation/aspiration. Provisc was instilled into the capsular bag to inflate the bag. A SN60WF, 25.0 diopter lens was placed. The remaining viscoelastic material was removed with irrigation/aspiration. Following this, the incision was found to be watertight. Besivance was instilled into the eye and a protective shield was placed over the eye. The patient returned to the postoperative recovery in stable condition. DICTATING PHYSICIAN: LAITH COBURN M.D. [id number] PHY#: [id number] ID: [id number] JOB#: [id number] ACCT: [id number] cc:LAITH COBURN M.D. >
--- NOTE | 2018-05-13 16:46 | [facility] DISCHARGE SUMMARY E ---
[facility] Discharge Summary NAME: JATINDER RODRIGUEZ AGE: 83Y ADMITTED: 05/13/2018 DISCHARGED: HISTORY: This is an 83-year-old female who underwent cataract extraction of the right eye. DIAGNOSIS: Cataract, right eye. HOSPITAL COURSE: She underwent surgery because she has trouble seeing words on the television. She should be on a regular diet. No bending at her waist. No heavy lifting. She should use her Besivance, Ilevro, and Durezol at 3:00 p.m. and 8:00 p.m. and sleep with a rigid shield, and I will see her for a 1-day postoperative tomorrow. DICTATING PHYSICIAN: LAITH COBURN M.D. [id number] PHY#: [id number] ID: [id number] JOB#: [id number] ACCT: [id number] cc:LAITH COBURN M.D. >
== END 2018-05-13 10:12 ==
LOC: SC 07:42
PROVIDERS: ATTEND Internal Medicine
DX: H25.13 Age-related nuclear cataract, bilateral (principal); I78.1 Nevus, non-neoplastic; H57.03 Miosis; E11.9 Type 2 diabetes mellitus without complications; I10 Essential (primary) hypertension; J44.9 Chronic obstructive pulmonary disease, unspecified; E07.9 Disorder of thyroid, unspecified; Z79.51 Long term (current) use of inhaled steroids; Z79.82 Long term (current) use of aspirin; Z79.899 Other long term (current) drug therapy; Z79.4 Long term (current) use of insulin; Z85.118 Personal history of other malignant neoplasm of bronchus and lung; Z87.891 Personal history of nicotine dependence
CPT/HCPCS: 66984; 82962; V2632; J2250; J3490 ×2; A9270; J0171; J2370; 142

== ENCOUNTER 2018-07-11 10:16 | Day surgery (SDC) | payer MEDICARE, MEDICAID ==
[~2018-07-11 10:16] MED LIST changes: +CHONDR SU A NA/HYALUR INTRAOC KIT (SURGICARE) ONE; -KETOROLAC TROMETHAMINE 0.45% 4 DROP/0.4 ML DROPERETTE OD PRN; +KETOROLAC TROMETHAMINE 0.45% 4 DROP/0.4 ML DROPERETTE OS PRN; -LIDOCAINE 1% INJ-PF (10 MG/ML) 30 ML SDV ONE; -MIDAZOLAM 2 MG/2 ML INJ ONE
[2018-07-11] MEDS: TETRACAINE HCL 0.5% OPH SOLN 4 ML OS PRN ×3 (10:29→11:05)
[2018-07-11] MEDS: CYCLOPENTOLATE 0.2%/PHENYLEPHRINE 1% OPH SOLN 2 ML OS PRN ×3 (10:30→10:52)
[2018-07-11] MEDS: TROPICAMIDE 1% OPH SOLN 3 ML OS PRN ×3 (10:30→10:52)
[2018-07-11] MEDS: BESIFLOXACIN HCL 0.6% OPH SUSP 5 ML BOTTLE OS PRN ×4 (10:31→11:33)
[2018-07-11] MEDS ORDERED: MIDAZOLAM 2 MG/2 ML INJ ONE ×2 (10:45→10:46)
--- NOTE | 2018-07-11 21:51 | [facility] DISCHARGE SUMMARY E ---
[facility] Discharge Summary NAME: JATINDER RODRIGUEZ AGE: 83Y ADMITTED: 07/11/2018 DISCHARGED: 07/11/2018 HOSPITAL COURSE: This is an 83-year-old female who underwent cataract extraction of the left eye. DIAGNOSIS: CATARACT, LEFT EYE. She underwent surgery because she was having trouble reading small print and playing [employer] game. DISCHARGE INSTRUCTIONS: She should be on a regular diet. No bending at her waist, no heavy lifting. She should use her Besivance, Ilevro, and Durezol at 3 p.m. and 8 p.m. and sleep with a rigid shield. I will see her for her 1 day postoperative tomorrow. DICTATING PHYSICIAN: LAITH COBURN M.D. [id number] PHY#: [id number] 1947 ID: [id number] JOB#: [id number] ACCT: [id number] cc:LAITH COBURN M.D. >
--- NOTE | 2018-07-11 21:51 | [facility] OPERATIVE REPORT E ---
[facility] Operative Report NAME: JATINDER RODRIGUEZ AGE: 83Y DATE OF SURGERY: 07/11/2018 ROOM: PREOPERATIVE DIAGNOSIS: CATARACT, LEFT EYE. POSTOPERATIVE DIAGNOSIS: CATARACT, LEFT EYE. OPERATION: Cataract extraction with insertion of an IOL of the left eye. SURGEON: LAITH COBURN M.D. ANESTHESIA: Topical. PROCEDURE: After obtaining appropriate consent, the patient's left eye was prepped and draped in sterile fashion as well as the surgeon in a sterile manner and cataract surgery was started. First a paracentesis blade was used to make a side-port incision. Viscoelastic was used to inflate the anterior chamber. Next a 2.4 mm incision was made with a 2.4 mm blade, clear corneal temporally. A continuous capsulorrhexis was made using a cystotome and Utrata forceps. Following this hydrodissection was carried out to make the lens fully loose and mobile and it was rotated 90 degrees. Following this, a wcazgh-eho-acwkisu technique was used to phacoemulsify the lens with a CDE of 23.07. The remaining cortex was removed with irrigation/aspiration. Provisc was instilled into the capsular bag to inflate the bag. A SN60WF, 24.5 diopter lens was placed. The remaining viscoelastic material was removed with irrigation/aspiration. Following this, the incision was found to be watertight. Besivance was instilled into the eye and a protective shield was placed over the eye. The patient returned to the postoperative recovery in stable condition. DICTATING PHYSICIAN: LAITH COBURN M.D. [id number] PHY#: [id number] 1947 ID: [id number] JOB#: [id number] ACCT: [id number] cc:LAITH COBURN M.D. >
== END 2018-07-11 12:14 ==
LOC: SC 10:16
PROVIDERS: ATTEND Internal Medicine
DX: H25.13 Age-related nuclear cataract, bilateral (principal); H57.03 Miosis; E11.9 Type 2 diabetes mellitus without complications; I10 Essential (primary) hypertension; Z79.82 Long term (current) use of aspirin; Z79.51 Long term (current) use of inhaled steroids; Z79.899 Other long term (current) drug therapy; I78.1 Nevus, non-neoplastic; Z79.4 Long term (current) use of insulin; Z85.118 Personal history of other malignant neoplasm of bronchus and lung; J44.9 Chronic obstructive pulmonary disease, unspecified; I48.91 Unspecified atrial fibrillation; Z99.81 Dependence on supplemental oxygen
CPT/HCPCS: 66984; 82962; V2632; J2250; J3490 ×2; A9270; J0171; J2370; 142

== ENCOUNTER → 2018-10-27 | Outpatient (CLI) | payer MEDICARE, MEDICAID ==
--- NOTE | 2018-10-28 09:00 | RADIOLOGY REPORT (SQ) ---
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 TECHNIQUE: Blood glucose level was verified. Above dose of FDG was injected intravenously. 2-D seg mented attenuation correction images were obtained from the base of the skull to the midthighs. Nonc ontrast CT images were obtained for attenuation correction and fusion with emission images. CT image s were performed without oral or intravenous contrast and are not sensitive for parenchymal lesions. A series of overlapping emission PET images were obtained. Images reviewed and manipulated at [facility] [employer] work station by the radiologist. Images stored on PACS. LIMITATIONS: None. FINDINGS: HEAD AND NECK: No areas of abnormal metabolic activity in the soft tissues of the head and neck. CHEST: Previously described right upper lobe nodule abutting the fissure now measures 1.8 x 3.5 cm an d 6.6 SUV. Rind of pleural-based consolidation and bronchiectasis in the left perihilar lower lobe i s unchanged morphologically but now measures 4.3 SUV, previously 3.5 SUV. ABDOMEN AND PELVIS: No areas of abnormal metabolic activity in the abdomen or pelvis. Expected physi ologic activity is present in the genitourinary system and bowel. PROXIMAL LOWER EXTREMITIES: No areas of abnormal metabolic activity in the soft tissues of the lower extremities. BONES: No abnormal metabolic activity in the visualized skeleton. ADDITIONAL CT FINDINGS: Nothing acute. OTHER: Background liver 2.8 SUV. Blood pool 2.1 SUV. IMPRESSION: 1. Enlarging right upper lobe nodule which is now hypermetabolic worrisome for malignancy. 2. Consolidation left perihilar region and left lower lobe is unchanged morphologically but slightly increased in metabolic activity. Cannot exclude local recurrence. TECHNICAL DOCUMENTATION: JOB ID: [id number] [employer]- All Rights Reserved Reading location - IP/workstation name: [email or web address]
== END ==
LOC: RAD 10-20 17:57
PROVIDERS: ATTEND Internal Medicine Medical Oncology
DX: C34.02 Malignant neoplasm of left main bronchus (principal)
CPT/HCPCS: 78815; A9552

== ENCOUNTER 2018-11-04 12:37 | Inpatient (IN) | payer MEDICARE, MEDICAID ==
[2018-11-04] MEDS ORDERED: FENTANYL CITRATE INJ/PF 100 MCG/2 ML AMPUL IV ONE (13:15)
--- NOTE | 2018-11-04 13:20 | ER Document Report ---
ED General - General Stated Complaint: WEAKNESS Time Seen by Provider: 11/04/18 12:40 Primary Care Provider: DARREN TORRES MD [Primary Care Provider] - Follow up as needed Notes: 83-year-old female who was presenting to the hospital for a lung biopsy due to a possible mass. Biopsy was done and fortunately there was a complication of a small pneumothorax. Chest tube was placed by interventional radiologist. The patient was transferred here to the emergency department. Patient complains of some right-sided chest discomfort do the procedure. Patient describes the pain as sharp and severe. Worse with taking a deep breath. TRAVEL OUTSIDE OF THE [place] IN LAST 30 DAYS: No - Related Data Allergies/Adverse Reactions: No Known Allergies Allergy (Verified 05/13/18 08:29) Past Medical History - Social History Smoking Status: Unknown if Ever Smoked Family History: Reviewed & Not Pertinent, COPD, Malignancy - Past Medical History Cardiac Medical History: Reports: Hx Congestive Heart Failure, Hx Coronary Artery Disease, Hx Hypercholesterolemia Denies: Hx DVT, Hx Heart Attack, Hx Hypertension, Hx Pulmonary Embolism Pulmonary Medical History: Reports: Hx COPD Denies: Hx Asthma, Hx Sleep Apnea Neurological Medical History: Denies: Hx Cerebrovascular Accident, Hx Seizures Endocrine Medical History: Reports: Hx Diabetes Mellitus Type 2, Hx Hypothyroid ism. Denies: Hx Hyperthyroidism Renal/ Medical History: Denies: Hx Peritoneal Dialysis Malignancy Medical History: Reports: Hx Lung Cancer GI Medical History: Denies: Hx Cirrhosis, Hx Gastroesophageal Reflux Disease, Hx Hepatitis, Hx Hiatal Hernia Psychiatric Medical History: Denies: Hx Depression Infectious Medical History: Denies: Hx C-Diff, Hx Hepatitis, Hx MRSA Past Surgical History: Reports: Hx Appendectomy, Hx Hysterectomy. Denies: Hx Mastectomy, Hx Open Heart Surgery, Hx Pacemaker - Immunizations Hx Diphtheria, Pertussis, Tetanus Vaccination: Yes Review of Systems - Review of Systems Constitutional: denies: Chills, Fever Cardiovascular: Chest pain, Dyspnea Respiratory: Cough, Hurts to breathe, Short of breath -: Yes All other systems reviewed and negative Physical Exam - Notes Notes: GENERAL_APPEARANCE: well_nourished, alert, cooperative, comfortable VITALS: reviewed, see vital signs table. HEAD: no_swelling\tenderness on the head. EYES: PERRL, EOMI, conjunctiva_clear. NOSE: no_nasal_discharge. MOUTH: (-)decreased moisture. THROAT: no_tonsilar_inflammation, no_airway_obstruction. no_lymphadenopathy NECK: supple, no_neck_tenderness, (-)thyromegaly. BACK: no_back_tenderness. CHEST_WALL: Right-sided chest wall tenderness there is a chest tube present. To be a small pigtail. LUNGS: no_wheezing, no_rales, no_rhonchi, (-)accessory muscle use, good air exchange bilateral. HEART: normal_rate, normal_rhythm, normal_S1, normal_S2, (-)S3, (-)S4, no_murmur, no_rub. ABDOMEN: normal_BS, soft, no_abd_tenderness, (-)guarding, (-)rebound, no_organomegaly, no_abd_masses. EXTREMITIES: good pulses in all_extremities, no_swelling\tenderness in the extremities, no_edema. SKIN: warm, dry, good_color, no_rash. MENTAL_STATUS: speech_clear, oriented_X_3, normal_affect, responds_appropriately to questions. Course - Re-evaluation Re-evalutation: 11/04/18 13:19 83-year-old female who is here for a lung biopsy via CT-guided and there was an unfortunate complication of a small pneumothorax. Chest tube was placed patient otherwise is doing well there is a small air leak in the chest tube. Patient will be admitted to the hospital and monitored for further care. She is oxygenating well she is in no distress. Lab work from today is within acceptable limits. Speak with the hospitalist service. Discharge - Discharge Clinical Impression: Pneumothorax Qualifiers: Encounter type: initial encounter Disposition: ADMITTED INPATIENT Admitting Provider: Hospitalist Unit Admitted: Telemetry Referrals: DARREN TORRES MD [Primary Care Provider] - Follow up as needed
[2018-11-04] MEDS ORDERED: GUAIFENESIN SYRP 200 MG/10 ML UDC PO PRN (14:09)
[2018-11-04 14:32] LABS: ANION GAP 11 (5-19); BLOOD UREA NITROGEN 19 mg/dL (7-20); CALCIUM 9.2 mg/dL (8.4-10.2); CARBON DIOXIDE 27 mmol/L (22-30); CHLORIDE 106 mmol/L (98-107); POTASSIUM 4.1 mmol/L (3.6-5.0); SODIUM 143.9 mmol/L (137-145)
[2018-11-04 14:35] LABS: GLUCOSE 41 mg/dL (75-110)
[2018-11-04] MEDS ORDERED: DEXTROSE 50%-WATER 25 GM/50 ML DISP.SYRIN IV ONE (15:05)
[2018-11-04] MEDS ORDERED: DEXTROSE 40% GEL 15 GM TUBE PO PRN ×2 (15:06)
[2018-11-04] MEDS ORDERED: GLUCAGON,HUMAN RECOMB 1 MG INJ IM PRN (15:06)
[2018-11-04] MEDS ORDERED: DEXTROSE 50%-WATER 25 GM/50 ML DISP.SYRIN IV PRN ×2 (15:06)
--- NOTE | 2018-11-04 15:35 | PDOC H&P ---
History of Present Illness Admission Date/PCP: 11/04/18 13:25 KD CISNEROS PA-C Patient complains of: chest wall pain, shortness of breath History of Present Illness: JATINDER RODRIGUEZ is a 83 year old female with a somewhat limited history due to being a poor historian, but known to have insulin-dependent diabetes mellitus, COPD, CAD, hyperlipidemia, and possibly atrial fibrillation (during last admission was on Multaq) who presented to the emergency room via interventional radiology for lung biopsy complication resulting in right-sided pneumothorax with chest tube placement and slight air leak. Evaluation in the emergency department revealed slight leukocytosis (WBCs 12.4) and hypoglycemia (glucose 41) but otherwise unremarkable labs. Follow up CXR (2 hr post tube placement) is pending. The patient is referred for admission for management of the above complaints and findings. Past Medical History Cardiac Medical History: Reports: Congestive Heart Failure, Coronary Artery Disease, Hyperlipidema Denies: DVT, Myocardial Infarction, Hypertension, Pulmonary Embolism Pulmonary Medical History: Reports: Chronic Obstructive Pulmonary Disease (COPD) Denies: Asthma, Sleep Apnea Neurological Medical History: Denies: Seizures Endocrine Medical History: Reports: Diabetes Mellitus Type 2, Hypothyroidism Denies: Hyperthyroidism Malignancy Medical History: Reports: Lung Cancer GI Medical History: Denies: Cirrhosis, Gastroesophageal Reflux Disease, Hepatitis, Hiatal Hernia Psychiatric Medical History: Reports: Depression Hematology: Denies: Anemia, Sickle Cell Disease Infectious Medical History: Denies: Clostridium Difficile, Methicillin-Resistant Staph Aureus Past Surgical History Past Surgical History: Reports: Appendectomy, Hysterectomy Denies: Amputation, Mastectomy, Pacemaker Social History Information Source: Patient Smoking Status: Former Smoker Frequency of Alcohol Use: None Hx Recreational Drug Use: No Drugs: None Hx Prescription Drug Abuse: No - Advance Directive Resuscitation Status: Do Not Resuscitate Surrogate healthcare decision maker:: The patient's Son and [id number]; Tyler Ly Family History Family History: Reviewed & Not Pertinent, COPD, Malignancy Parental Family History Reviewed: Yes Children Family History Reviewed: Yes Sibling(s) Family History Reviewed.: Yes Medication/Allergy Allergies/Adverse Reactions: No Known Allergies Allergy (Verified 05/13/18 08:29) Review of Systems Constitutional: ABSENT: chills, fever(s), headache(s), weight gain, weight loss Eyes: ABSENT: visual disturbances Ears: ABSENT: hearing changes Cardiovascular: ABSENT: chest pain, dyspnea on exertion, edema, orthropnea, palpitations Respiratory: PRESENT: dyspnea, other - chest wall pain with deep breath/cough. ABSENT: cough, hemoptysis Gastrointestinal: ABSENT: abdominal pain, constipation, diarrhea, hematemesis, hematochezia, nausea, vomiting Genitourinary: ABSENT: dysuria, hematuria Musculoskeletal: ABSENT: joint swelling Integumentary: ABSENT: rash, wounds Neurological: ABSENT: abnormal gait, abnormal speech, confusion, dizziness, focal weakness, syncope Psychiatric: PRESENT: anxiety. ABSENT: depression, homidical ideation, suicidal ideation Endocrine: ABSENT: cold intolerance, heat intolerance, polydipsia, polyuria Hematologic/Lymphatic: ABSENT: easy bleeding, easy bruising Physical Exam Vital Signs: Temp Pulse Resp BP Pulse Ox 98.3 F 115/45 L 97 11/04/18 14:32 11/04/18 14:01 11/04/18 14:01 Intake & Output 11/03/18 11/04/18 11/05/18 06:59 06:59 06:59 Weight 64.1 kg General appearance: PRESENT: no acute distress, cooperative - pleasant, thin, well-developed, well-nourished Head exam: PRESENT: atraumatic, normocephalic Eye exam: PRESENT: conjunctiva pink, EOMI, PERRLA. ABSENT: scleral icterus Ear exam: PRESENT: normal external ear exam Mouth exam: PRESENT: moist, tongue midline Neck exam: ABSENT: carotid bruit, JVD, lymphadenopathy, thyromegaly Respiratory exam: PRESENT: decreased breath sounds - bibasilar; R>L, tachypnea, wheezes, other - supplemental oxygen via NC; shallow breathing 2/2 pain. ABSENT: rales, rhonchi Cardiovascular exam: PRESENT: RRR, +S1, +S2. ABSENT: diastolic murmur, rubs, systolic murmur Pulses: PRESENT: normal dorsalis pedis pul Vascular exam: PRESENT: normal capillary refill GI/Abdominal exam: PRESENT: normal bowel sounds, soft. ABSENT: distended, guarding, mass, organolmegaly, rebound, tenderness Rectal exam: PRESENT: deferred Extremities exam: PRESENT: full ROM. ABSENT: calf tenderness, clubbing, pedal edema Neurological exam: PRESENT: alert, awake, oriented to person, oriented to place, oriented to time, oriented to situation, CN II-XII grossly intact. ABSENT: motor sensory deficit Psychiatric exam: PRESENT: appropriate affect, normal mood. ABSENT: homicidal ideation, suicidal ideation Skin exam: PRESENT: dry, intact, warm. ABSENT: cyanosis, rash Results Laboratory Results: 11/04/18 13:45 11/04/18 13:45 Sodium 143.9 Potassium 4.1 Chloride 106 Carbon Dioxide 27 Anion Gap 11 BUN 19 Creatinine 0.92 Est GFR ( Amer) > 60 Est GFR (Non-Af Amer) 58 L Glucose 41 L Calcium 9.2 Assessment & Plan - Diagnosis (1) Pneumothorax Qualifiers: Encounter type: initial encounter Is this a current diagnosis for this admission?: Yes Plan: Right-sided pneumothorax secondary to complication of lung biopsy; chest tube placed while in interventional radiology. She is noted to have a slight air leak and so is referred to the hospitalist service for admission and observation. Follow up Chest x-ray is pending (2 hour s/p tube palcement). The patient is admitted to the medical floor and continuous cardiac telemetry and pulse oximetry. She is provided supplemental oxygen as needed to maintain oxygen saturations >88% She is placed on scheduled and as needed nebulizer treatment (history of COPD) Incentive spirometer to bedside. Analgesics as needed for pain control. Pulmonology is consulted; consider surgical consultation Discharge planning is consulted. (2) Diabetes Qualifiers: Diabetes mellitus type: type 2 Diabetes mellitus shelter insulin use: with quality analyst use Diabetes mellitus complication status: with hypoglycemia Diabetes mellitus complication detail: without coma Qualified Code(s): E11.649 - Type 2 diabetes mellitus with hypoglycemia without coma; Z79.4 - [facility] (current) use of insulin Is this a current diagnosis for this admission?: Yes Plan: Found to have hypoglycemia; glucose 41. Likely secondary to insulin use and prolonged n.p.o. status for procedure this morning. 12.5 g dextrose IV now; continue to correct via hypoglycemia protocol. Patient is placed on a consistent carb diet with Accu-Cheks before meals and at bedtime with Humalog for sliding scale coverage. Hypoglycemia protocol in place. (3) Coronary artery disease Qualifiers: Coronary Disease-Associated Artery/Lesion type: [place] artery [place] vs. transplanted heart: [place] heart Associated angina: without angina Qualified Code(s): I25.10 - Atherosclerotic heart disease of [place] coronary artery without angina pectoris Is this a current diagnosis for this admission?: Yes Plan: Without chest pain at present. Patient is placed on a low-sodium diet. We will resume her home medication regiment once reconciled. (4) History of CHF (congestive heart failure) Is this a current diagnosis for this admission?: Yes Plan: Stable and without exacerbation at this time. Patient is placed on a low-sodium diet. Daily weights. We will resume home medications once reconciled. (5) Hypothyroidism Qualifiers: Hypothyroidism type: unspecified Qualified Code(s): E03.9 - Hypothyroidism, unspecified Is this a current diagnosis for this admission?: Yes Plan: Patient endorses a history of hypothyroidism; unfortunately she does not aware of her medications or dosing. We will resume her home dose of levothyroxine once reconciled. (6) Do not resuscitate Is this a current diagnosis for this admission?: Yes Plan: Patient confirms DNR/DNI status (7) Hypoglycemia Is this a current diagnosis for this admission?: Yes Plan: As above. - Time Time Spent: 50 to 70 Minutes Medications reviewed and adjusted accordingly: Yes
[2018-11-04] MEDS: NORMAL SALINE 1000 ML 1,000 ML IV PRN (15:57)
[2018-11-04] MEDS: MORPHINE SULFATE 10 MG/ML INJ IV PRN (15:57)
[2018-11-04] MEDS ORDERED: LEVALBUTEROL HCL NEB 1.25 MG/3 ML AMPUL NEB ONE (16:30)
[2018-11-04] MEDS: INSULIN LISPRO 100 UNIT/ML 3 ML VIAL SUBCUT SCH ×2 (16:39→22:45)
[2018-11-04] MEDS ORDERED: LIDOCAINE 5% (700 MG) TRANSDERMAL ADH..PATCH TP ONE (17:00)
[2018-11-04] MEDS: DOCUSATE SODIUM 100 MG CAPSULE PO SCH (17:27)
[2018-11-04] MEDS: IPRATROPIUM/ALBUTEROL 0.5-2.5 MG/3 ML AMPUL NEB SCH (20:44)
[2018-11-04] MEDS ORDERED: FLUTICASONE/SALMETEROL DISKUS 500-50 MCG/DOSE IH SCH (22:00)
[2018-11-04] MEDS ORDERED: (PENDING PHARMACY ID) (Guaifenesin [Mucinex] 1,200 MG) PO SCH (22:00)
[2018-11-04] MEDS ORDERED: (PENDING PHARMACY ID) (Calcium Carbonate/Vitamin D3 [Os-Cal 500-Vit D3 200 Caplet] 1 TAB) PO SCH (22:00)
[2018-11-04] MEDS: TRAZODONE HCL 50 MG TABLET PO SCH (22:42)
[2018-11-04] MEDS: HEPARIN SOD (PORCINE) 5,000 UNIT/ML 1 ML SYRINGE SUBCUT SCH (22:44)
[2018-11-04] MEDS: ATORVASTATIN CALCIUM 40 MG TABLET PO SCH (22:47)
[2018-11-04] MEDS: GUAIFENESIN 600 MG TABLET.SA PO SCH (22:47)
[2018-11-04] MEDS: ESCITALOPRAM OXALATE 10 MG TABLET PO SCH (22:47)
[2018-11-04] MEDS: DRONEDARONE HYDROCHLORIDE 400 MG TABLET PO SCH (22:50)
[2018-11-04] MEDS: MONTELUKAST SODIUM 10 MG TABLET PO SCH (22:50)
[2018-11-04] MEDS: CALCIUM CARBONATE 250 MG/VITAMIN D3 125 UNIT TABLET PO SCH (22:51)
[2018-11-04] MEDS: FAMOTIDINE 20 MG TABLET PO SCH (22:53)
[2018-11-05 05:45] LABS: ANION GAP 5 (5-19); BLOOD UREA NITROGEN 14 mg/dL (7-20); CALCIUM 8.6 mg/dL (8.4-10.2); CARBON DIOXIDE 29 mmol/L (22-30); CHLORIDE 108 mmol/L (98-107); POTASSIUM 4.2 mmol/L (3.6-5.0); SODIUM 141.8 mmol/L (137-145)
[2018-11-05 05:48] LABS: HEMATOCRIT 34.8 % (36.0-47.0); HEMOGLOBIN 11.5 g/dL (12.0-15.5); MEAN CORPUSCULAR HEMOGLOBIN 26.7 pg (27.0-33.4); MEAN CORPUSCULAR HGB CONC 33.1 g/dL (32.0-36.0); MEAN CORPUSCULAR VOLUME 81 fl (80-97); PLATELET COUNT 157 10^3/uL (150-450); RED BLOOD COUNT 4.31 10^6/uL (3.72-5.28); RED CELL DISTRIBUTION WIDTH 16.9 % (11.5-14.0); WHITE BLOOD COUNT 6.3 10^3/uL (4.0-10.5)
[2018-11-05 05:52] LABS: GLUCOSE 58 mg/dL (75-110)
[2018-11-05] MEDS: HEPARIN SOD (PORCINE) 5,000 UNIT/ML 1 ML SYRINGE SUBCUT SCH ×3 (06:05→21:40)
[2018-11-05] MEDS: LEVOTHYROXINE SODIUM 0.05 MG TABLET PO SCH (06:16)
[2018-11-05] MEDS: IPRATROPIUM/ALBUTEROL 0.5-2.5 MG/3 ML AMPUL NEB SCH ×2 (07:23→21:03)
[2018-11-05] MEDS: INSULIN LISPRO 100 UNIT/ML 3 ML VIAL SUBCUT SCH ×4 (08:00→21:42)
--- NOTE | 2018-11-05 08:49 | RADIOLOGY REPORT (SQ) ---
EXAM DESCRIPTION: CHEST SINGLE VIEW COMPLETED DATE/TIME: 11/05/2018 8:37 am REASON FOR STUDY: pneumothorax COMPARISON: 11/04/2018 and 12/23/2017. EXAM PARAMETERS: NUMBER OF VIEWS: One view. TECHNIQUE: Single frontal radiographic view of the chest acquired. RADIATION DOSE: NA LIMITATIONS: None. FINDINGS: LUNGS AND PLEURA: Chronic volume loss on the left. Indistinct mass in the right lung. No pneumothorax. MEDIASTINUM AND HILAR STRUCTURES: No masses. Contour normal. HEART AND VASCULAR STRUCTURES: Heart normal in size. Normal vasculature. BONES: No acute findings. Old rib fractures. HARDWARE: Stable right-sided pigtail catheter. OTHER: No other significant finding. IMPRESSION: RIGHT-SIDED PLEURAL PIGTAIL CATHETER WITH NO PNEUMOTHORAX. STABLE CHRONIC CHANGES IN TH E CHEST. TECHNICAL DOCUMENTATION: JOB ID: [id number] [employer]- All Rights Reserved Reading location - IP/workstation name: [email or web address]
--- NOTE | 2018-11-05 09:52 | RADIOLOGY REPORT (SQ) ---
EXAM DESCRIPTION: CHEST SINGLE VIEW COMPLETED DATE/TIME: 11/05/2018 9:41 am REASON FOR STUDY: PNEUMOTHORAX COMPARISON: 11/05/2018 at 0836 hours. EXAM PARAMETERS: NUMBER OF VIEWS: One view. TECHNIQUE: Single frontal radiographic view of the chest acquired. RADIATION DOSE: NA LIMITATIONS: None. FINDINGS: LUNGS AND PLEURA: Stable volume loss on the left side and indistinct nodule in the right l leslye. No pneumothorax. MEDIASTINUM AND HILAR STRUCTURES: No masses. Contour normal. HEART AND VASCULAR STRUCTURES: Heart normal in size. Normal vasculature. BONES: No acute findings. HARDWARE: Stable right-sided pleural drainage catheter. OTHER: No other significant finding. IMPRESSION: STABLE APPEARANCE. NO PNEUMOTHORAX. TECHNICAL DOCUMENTATION: JOB ID: [id number] [employer]- All Rights Reserved Reading location - IP/workstation name: [email or web address]
[2018-11-05] MEDS: DOCUSATE SODIUM 100 MG CAPSULE PO SCH ×2 (10:00→17:04)
[2018-11-05] MEDS: FUROSEMIDE 20 MG TABLET PO SCH (10:00)
[2018-11-05] MEDS ORDERED: (PENDING PHARMACY ID) (Roflumilast [Daliresp 500 Mcg Tablet] 500 MCG) PO SCH (10:00)
[2018-11-05] MEDS ORDERED: (PENDING PHARMACY ID) (Umeclidinium Bromide [Incruse Ellipta] 1 PUFF) IH SCH (10:00)
[2018-11-05] MEDS: CALCIUM CARBONATE 250 MG/VITAMIN D3 125 UNIT TABLET PO SCH ×2 (10:00→21:39)
[2018-11-05] MEDS: GUAIFENESIN 600 MG TABLET.SA PO SCH ×2 (10:01→21:39)
[2018-11-05] MEDS: DRONEDARONE HYDROCHLORIDE 400 MG TABLET PO SCH ×2 (10:01→21:41)
[2018-11-05] MEDS: POTASSIUM CHLORIDE 10 MEQ CAPSULE.ER PO SCH (10:01)
[2018-11-05] MEDS: ROFLUMILAST 500 MCG TABLET PO SCH (10:02)
[2018-11-05] MEDS: FAMOTIDINE 20 MG TABLET PO SCH ×2 (10:02→21:39)
[2018-11-05] MEDS: LIDOCAINE 5% (700 MG) TRANSDERMAL ADH..PATCH TP SCH (10:03)
[2018-11-05] MEDS: ACETAMINOPHEN 325 MG TABLET PO PRN ×3 (10:05→23:30)
--- NOTE | 2018-11-05 11:23 | PDOC CONSULTATION ---
Consultation Consult Date: 11/05/18 Consult reason:: right pneumothorax post lung biopsy History of Present Illness Admission Date/PCP: 11/04/18 13:25 KD CISNEROS PA-C History of Present Illness: JATINDER RODRIGUEZ is a 83 year old female with a suspicious right lung mass, s/p needle lung biopsy yesterday, complicated by right pneumothorax. A pigtail catheter was inserted in the ER yesterday and she was admitted by the Medical Service. Two chest Xrays were done this AM and show no pneumothorax. I have been consulted for chest tub management. Past Medical History Cardiac Medical History: Reports: Congestive Heart Failure, Coronary Artery Disease, Hyperlipidema Denies: DVT, Myocardial Infarction, Hypertension, Pulmonary Embolism Pulmonary Medical History: Reports: Chronic Obstructive Pulmonary Disease (COPD) Denies: Asthma, Sleep Apnea Neurological Medical History: Denies: Seizures Endocrine Medical History: Reports: Diabetes Mellitus Type 2, Hypothyroidism Denies: Hyperthyroidism Malignancy Medical History: Reports: Lung Cancer GI Medical History: Denies: Cirrhosis, Gastroesophageal Reflux Disease, Hepatitis, Hiatal Hernia Psychiatric Medical History: Reports: Depression Hematology: Denies: Anemia, Sickle Cell Disease Infectious Medical History: Denies: Clostridium Difficile, Methicillin-Resistant Staph Aureus Past Surgical History Past Surgical History: Reports: Appendectomy, Hysterectomy Denies: Amputation, Mastectomy, Pacemaker Social History Smoking Status: Former Smoker Frequency of Alcohol Use: None Hx Recreational Drug Use: No Drugs: None Hx Prescription Drug Abuse: No - Advance Directive Resuscitation Status: Do Not Resuscitate Family History Family History: Reviewed & Not Pertinent, COPD, Malignancy Parental Family History Reviewed: No Children Family History Reviewed: No Sibling(s) Family History Reviewed.: No Medication/Allergy Home Medications: Ascorbic Acid [Vitamin C 500 mg Tablet] 500 mg PO Q12 11/04/18 Atorvastatin Calcium [Lipitor 40 mg Tablet] 40 mg PO QHS 11/04/18 Calcium Carbonate/Vitamin D3 [Os-Broderick 500+D Tablet] 1 tab PO Q12 11/04/18 Docusate Sodium [Colace 100 mg Capsule] 100 mg PO BID 11/04/18 Dronedarone Hydrochloride [Multaq 400 Mg Tablet] 400 mg PO Q12 11/04/18 Ergocalciferol (Vitamin D2) [Drisdol 50,000 Unit (1.25MG) Capsule] 50,000 unit PO .QWEEKLY 11/04/18 Escitalopram Oxalate [Lexapro 10 mg Tablet] 10 mg PO QHS 11/04/18 Fluticasone/Salmeterol [Advair 500-50 Diskus 14 Dose/Diskus] 1 inh IH Q12 11/04/18 Furosemide [Lasix 20 mg Tablet] 20 mg PO QAM 11/04/18 Guaifenesin [Mucinex] 1,200 mg PO Q12 11/04/18 Insulin Aspart [Novolog Flexpen] 0 unit SUBCUT .SLD SCALE 11/04/18 Insulin Glargine,Hum.rec.anlog [Lantus Insulin 100 Unit/1 ml 10 ml] 50 unit SUBCUT QHS 11/04/18 Ketotifen Fumarate [Zaditor] 1 drop OS Q12 11/04/18 Levothyroxine Sodium [Synthroid 0.05 mg Tablet] 0.05 mg PO Q6AM 11/04/18 Montelukast Sodium [Singulair 10 mg Tablet] 10 mg PO QHS 11/04/18 Pantoprazole Sodium [Protonix] 40 mg PO DAILY 11/04/18 Potassium Chloride [Klor-Con 10 Meq Capsule ER] 10 meq PO DAILY 11/04/18 Roflumilast [Daliresp 500 mcg Tablet] 500 mcg PO DAILY 11/04/18 Trazodone HCl [Desyrel 50 mg Tablet] 50 mg PO QHS 11/04/18 Umeclidinium [place] [Incruse Ellipta] 1 puff IH DAILY 11/04/18 Allergies/Adverse Reactions: No Known Allergies Allergy (Verified 05/13/18 08:29) Physical Exam Vital Signs: Temp Pulse Resp BP Pulse Ox 97.5 F 88 18 111/38 L 99 11/05/18 08:15 11/05/18 08:15 11/05/18 08:15 11/05/18 08:15 11/05/18 08:15 Pulse Oximeter Continuous Start: 11/04/18 14:10 Freq: RTQ4 Status: Active Protocol: Document 11/05/18 07:23 [facility] (Rec: 11/05/18 07:24 [facility] [id number]) Pulse Oximetry Assessment Oxygen Saturation (92-100) 97 Oxygen Flow Rate (L/min) 2 Oxygen Delivery Method Nasal Cannula Fraction of Inspired Oxygen (FIO2) 28 Equipment Usage Equipment in Use Continuous SpO2 Machine # 2 Intake & Output 11/04/18 11/05/18 11/06/18 06:59 06:59 06:59 Intake Total 110 Output Total 15 Balance 95 Weight 64.2 kg General appearance: PRESENT: mild distress Head exam: PRESENT: atraumatic Eye exam: PRESENT: EOMI Mouth exam: PRESENT: neck supple Respiratory exam: PRESENT: prolonged expiratory phas, rhonchi - on right; clear on the left GI/Abdominal exam: PRESENT: soft Results Laboratory Results: 11/05/18 04:47 11/05/18 04:47 11/04/18 11/05/18 11/05/18 13:45 04:47 04:47 WBC 6.3 RBC 4.31 Hgb 11.5 L Hct 34.8 L MCV 81 MCH 26.7 L MCHC 33.1 RDW 16.9 H Plt Count 157 Sodium 143.9 141.8 Potassium 4.1 4.2 Chloride 106 108 H Carbon Dioxide 27 29 Anion Gap 11 5 BUN 19 14 Creatinine 0.92 0.77 Est GFR ( Amer) > 60 > 60 Est GFR (Non-Af Amer) 58 L > 60 Glucose 41 L 58 L Calcium 9.2 8.6 Impressions: Chest X-Ray 11/05/18 06:00 IMPRESSION: RIGHT-SIDED PLEURAL PIGTAIL CATHETER WITH NO PNEUMOTHORAX. STABLE CHRONIC CHANGES IN THE CHEST. Assessment & Plan - Diagnosis (1) Pneumothorax after biopsy Is this a current diagnosis for this admission?: Yes - Plan Summary Plan Summary: A/ Right pneumothorax post lung biopsy yesterday No residual pneumothorax after small pigtail catheter placed yesterday on chest Xray today P/ Place Heil[place] valve to chest tube today patient can be discharged to home with the device in place Sponge bath only limit physical activities so chest tube does not get pulled no smoking, no coughing, no straining sponge bath only while chest tube is in place Return to [facility] in 2 weeks with DOMINGO Lin Chest Xray to be done on the day of the office clinic
--- NOTE | 2018-11-05 20:01 | PDOC PROGRESS REPORT ---
Subjective Progress Note for:: 11/05/18 Subjective:: JATINDER RODRIGUEZ is a 83 year old female with a somewhat limited history due to being a poor historian, but known to have insulin-dependent diabetes mellitus, COPD, CAD, hyperlipidemia, and possibly atrial fibrillation (during last admission was on Multaq) who presented to the emergency room via interventional radiology for lung biopsy complication resulting in right-sided pneumothorax with chest tube placement and slight air leak. Patient seen this morning on rounds, she is resting comfortably in bed on 2LNC, her home dose of O2. She c/o pain at the chest tube insertion site. Coarse lung sounds bilaterally. Chest tube currently to water seal. Surgery was consulted for chest tube management. Reason For Visit: PNEUMOTHORAX Physical Exam Vital Signs: Temp Pulse Resp BP Pulse Ox 98.2 F 82 18 101/52 L 100 11/04/18 23:11 11/04/18 23:11 11/04/18 23:11 11/04/18 23:11 11/05/18 01:13 Pulse Oximeter Continuous Start: 11/04/18 14:10 Freq: RTQ4 Status: Active Protocol: Document 11/05/18 00:42 NSM (Rec: 11/05/18 00:43 NSM [id number]) Pulse Oximetry Assessment Oxygen Saturation (92-100) 100 Oxygen Flow Rate (L/min) 2 Oxygen Delivery Method Nasal Cannula Fraction of Inspired Oxygen (FIO2) 28 Equipment Usage Equipment in Use Continuous Pulse Oximeter 24 Hour Charge Charge Now Continuous SpO2 Machine # N2 Intake & Output 11/03/18 11/04/18 11/05/18 06:59 06:59 06:59 Intake Total 110 Output Total 5 Balance 105 Weight 64.2 kg General appearance: PRESENT: no acute distress, well-developed, well-nourished Eye exam: PRESENT: conjunctiva pink, PERRLA Mouth exam: PRESENT: moist Neck exam: PRESENT: full ROM Respiratory exam: PRESENT: symmetrical, other - COARSE LUNG SOUNDS B/L. ON 2LNC - HOME DOSE OF O2. ABSENT: clear to auscultation yaya, unlabored - PAIN WITH INHALATION Cardiovascular exam: PRESENT: +S1, +S2 Pulses: PRESENT: normal radial pulses GI/Abdominal exam: PRESENT: soft. ABSENT: distended, tenderness Rectal exam: PRESENT: deferred Extremities exam: PRESENT: full ROM Musculoskeletal exam: PRESENT: full ROM Neurological exam: PRESENT: alert, awake, oriented to person, oriented to place, oriented to time, oriented to situation Psychiatric exam: PRESENT: appropriate affect Skin exam: PRESENT: dry, intact, normal color Results Laboratory Results: 11/04/18 13:45 11/04/18 13:45 Sodium 143.9 Potassium 4.1 Chloride 106 Carbon Dioxide 27 Anion Gap 11 BUN 19 Creatinine 0.92 Est GFR ( Amer) > 60 Est GFR (Non-Af Amer) 58 L Glucose 41 L Calcium 9.2 Status: Imported from PACS Assessment & Plan - Diagnosis (1) Pneumothorax Qualifiers: Encounter type: initial encounter Is this a current diagnosis for this admission?: Yes Plan: Right-sided pneumothorax secondary to complication of lung biopsy; chest tube placed while in interventional radiology. She was noted to have a slight air leak and so is referred to the hospitalist service for admission and observation. Repeat CXR this AM while chest tube is clamped shows no pneumothorax The patient is admitted to the medical floor and continuous cardiac telemetry and pulse oximetry. She is provided supplemental oxygen as needed to maintain oxygen saturations >88% She is placed on scheduled and as needed nebulizer treatment (history of COPD) Incentive spirometer to bedside. Analgesics as needed for pain control. Surgery is consulted for chest tube management Discharge planning is consulted. 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 Likely secondary to insulin use and prolonged n.p.o. status for procedure this morning. Treated with IV dextrose now; continue to correct via hypoglycemia protocol. Patient is placed on a consistent carb diet with Accu-Cheks before meals and at bedtime with Humalog for sliding scale coverage. Hypoglycemia protocol in place. (3) Coronary artery disease Qualifiers: Coronary Disease-Associated Artery/Lesion type: telida artery [place] vs. transplanted heart: telida heart Associated angina: without angina Qualified Code(s): I25.10 - Atherosclerotic heart disease of telida coronary artery without angina pectoris Is this a current diagnosis for this admission?: Yes Plan: Without chest pain at present. Patient is placed on a low-sodium diet. Continue multaq, lipitor and lasix (4) History of CHF (congestive heart failure) Is this a current diagnosis for this admission?: Yes Plan: Stable and without exacerbation at this time. Patient is placed on a low-sodium diet. Daily weights. Continue home dose multaq, lipitor, lasix (5) Hypothyroidism Qualifiers: Hypothyroidism type: unspecified Qualified Code(s): E03.9 - Hypothyroidism, unspecified Is this a current diagnosis for this admission?: Yes Plan: PMH hypothyroidism Continue home dose synthroid Check TSH in AM (6) Hypoglycemia Is this a current diagnosis for this admission?: Yes Plan: as above (7) Do not resuscitate Is this a current diagnosis for this admission?: Yes - Time Time Spent with patient: 15-24 minutes Medications reviewed and adjusted accordingly: Yes Anticipated discharge: Home - Inpatient Certification Based on my medical assessment, after consideration of the patient's comorbidit ies, presenting symptoms, or acuity I expect that the services needed warrant INPATIENT care.: Yes I certify that my determination is in accordance with my understanding of [place] mary's requirements for reasonable and necessary INPATIENT services [42 CFR 412.3e].: Yes Medical Necessity: Need For Continuous Telemetry Monitoring - Plan Summary Plan Summary: C/S SURGERY. PLAN TO KEEP INPATIENT UNTIL CHEST TUBE IS REMOVED. CANNOT SEND BACK TO [facility]
[2018-11-05] MEDS: MONTELUKAST SODIUM 10 MG TABLET PO SCH (21:38)
[2018-11-05] MEDS: ATORVASTATIN CALCIUM 40 MG TABLET PO SCH (21:39)
[2018-11-05] MEDS: TRAZODONE HCL 50 MG TABLET PO SCH (21:39)
[2018-11-05] MEDS: ESCITALOPRAM OXALATE 10 MG TABLET PO SCH (21:40)
[2018-11-06] MEDS: HEPARIN SOD (PORCINE) 5,000 UNIT/ML 1 ML SYRINGE SUBCUT SCH ×3 (05:21→21:40)
[2018-11-06] MEDS: LEVOTHYROXINE SODIUM 0.05 MG TABLET PO SCH (05:23)
[2018-11-06] MEDS: INSULIN LISPRO 100 UNIT/ML 3 ML VIAL SUBCUT SCH ×4 (07:39→23:25)
[2018-11-06] MEDS: IPRATROPIUM/ALBUTEROL 0.5-2.5 MG/3 ML AMPUL NEB SCH ×2 (08:37→20:16)
[2018-11-06] MEDS: POTASSIUM CHLORIDE 10 MEQ CAPSULE.ER PO SCH (09:52)
--- NOTE | 2018-11-06 09:52 | PDOC PROGRESS REPORT ---
Subjective Progress Note for:: 11/06/18 Subjective:: 83 y/o F s/p lung biposy. She had a postop pneumothorax, treated by radiology with a percutaneous tube thoracostomy. The pt is doing well today. She denies SOB, CP, BELL, N/V, abdominal pain, dizziness. She does report a cough. Reason For Visit: PNEUMOTHORAX Physical Exam Vital Signs: Temp Pulse Resp BP Pulse Ox 99.1 F 85 20 123/53 L 98 11/06/18 08:00 11/06/18 08:39 11/06/18 08:39 11/06/18 08:00 11/06/18 08:39 Pulse Oximeter Continuous Start: 11/04/18 14:10 Freq: RTQ4 Status: Active Protocol: Document 11/06/18 08:39 JDR (Rec: 11/06/18 08:44 JDR [id number]) Pulse Oximetry Assessment Oxygen Saturation (92-100) 98 Oxygen Flow Rate (L/min) 2 Oxygen Delivery Method Nasal Cannula Equipment Usage Equipment in Use Continuous SpO2 Machine # 2 Intake & Output 11/05/18 11/06/18 11/07/18 06:59 06:59 06:59 Intake Total 110 1024 Output Total 15 1100 Balance 95 -76 Weight 64.2 kg 61.2 kg General appearance: PRESENT: no acute distress Head exam: PRESENT: atraumatic, normocephalic Eye exam: PRESENT: EOMI, PERRLA Mouth exam: ABSENT: neck supple Neck exam: ABSENT: meningismus, tenderness, thyromegaly, tracheal deviation Respiratory exam: PRESENT: other - small caliber right tube thoracostomy in- place. No air leak. Cardiovascular exam: PRESENT: RRR GI/Abdominal exam: PRESENT: soft. ABSENT: distended, tenderness Neurological exam: PRESENT: alert, awake, oriented to person, oriented to place Psychiatric exam: ABSENT: anxious Skin exam: ABSENT: cyanosis, erythema, jaundice Results Laboratory Results: 11/05/18 04:47 11/05/18 04:47 Assessment & Plan - Diagnosis (1) Pneumothorax after biopsy Is this a current diagnosis for this admission?: Yes - Plan Summary Plan Summary: Tube without air leak. Plan to remove chest tube today. Repeat chest x-ray in 2- 3 hours. If no reaccumulation of PTX, pt can return to nursing facility.
[2018-11-06] MEDS: CALCIUM CARBONATE 250 MG/VITAMIN D3 125 UNIT TABLET PO SCH ×2 (09:53→21:41)
[2018-11-06] MEDS: DOCUSATE SODIUM 100 MG CAPSULE PO SCH ×2 (09:53→18:20)
[2018-11-06] MEDS: ROFLUMILAST 500 MCG TABLET PO SCH (09:53)
[2018-11-06] MEDS: GUAIFENESIN 600 MG TABLET.SA PO SCH ×2 (09:53→21:41)
[2018-11-06] MEDS: FAMOTIDINE 20 MG TABLET PO SCH ×2 (09:53→21:42)
[2018-11-06] MEDS: LIDOCAINE 5% (700 MG) TRANSDERMAL ADH..PATCH TP SCH (09:53)
[2018-11-06] MEDS: FUROSEMIDE 20 MG TABLET PO SCH (09:53)
[2018-11-06] MEDS: DRONEDARONE HYDROCHLORIDE 400 MG TABLET PO SCH ×2 (09:53→21:42)
--- NOTE | 2018-11-06 09:56 | RADIOLOGY REPORT (SQ) ---
EXAM DESCRIPTION: CHEST 2 VIEWS COMPLETED DATE/TIME: 11/06/2018 9:06 am REASON FOR STUDY: PNEUMOTHORAX COMPARISON: 11/05/2018, 11/04/2018 EXAM PARAMETERS: NUMBER OF VIEWS: two views TECHNIQUE: Digital Frontal and Lateral radiographic views of the chest acquired. RADIATION DOSE: NA LIMITATIONS: none FINDINGS: LUNGS AND PLEURA: Right-sided pleural space pigtail catheter is unchanged. No pneumothora x. Previously biopsied right upper lobe nodule is present. Chronic volume loss left lung unchanged. No left pleural effusion or pneumothorax. No acute infiltr ates. MEDIASTINUM AND HILAR STRUCTURES: No masses or contour abnormalities. HEART AND VASCULAR STRUCTURES: Heart normal size. No evidence for failure. BONES: No acute findings. HARDWARE: Right pleural space pigtail catheter unchanged OTHER: No other significant finding. IMPRESSION: Right pleural space pigtail catheter unchanged. No pneumothorax. TECHNICAL DOCUMENTATION: JOB ID: [id number] [employer]- All Rights Reserved Reading location - IP/workstation name: [email or web address]
[2018-11-06] MEDS: MORPHINE SULFATE 10 MG/ML INJ IV PRN (09:58)
--- NOTE | 2018-11-06 12:26 | RADIOLOGY REPORT (SQ) ---
EXAM DESCRIPTION: CHEST SINGLE VIEW COMPLETED DATE/TIME: 11/06/2018 12:15 pm REASON FOR STUDY: follow up chest tube removal COMPARISON: 11/06/2018 EXAM PARAMETERS: NUMBER OF VIEWS: One view. TECHNIQUE: Single frontal radiographic view of the chest acquired. RADIATION DOSE: NA LIMITATIONS: None. FINDINGS: LUNGS AND PLEURA: Persistent reduced volume in the left lung. No pneumothorax on the righ t. Limited ill-defined opacification in the right upper lung field. MEDIASTINUM AND HILAR STRUCTURES: No masses. Contour normal. HEART AND VASCULAR STRUCTURES: Heart normal in size. Normal vasculature. BONES: No acute findings. HARDWARE: Pigtail catheter has been removed from the right hemithorax. OTHER: No other significant finding. IMPRESSION: No pneumothorax status post catheter removal. Cannot exclude very limited airspace dise ase in the right upper lobe. TECHNICAL DOCUMENTATION: JOB ID: [id number] [employer]- All Rights Reserved Reading location - IP/workstation name: [email or web address]
--- NOTE | 2018-11-06 13:44 | RADIOLOGY REPORT (SQ) ---
EXAM DESCRIPTION: CHEST 2 VIEWS COMPLETED DATE/TIME: 11/06/2018 1:21 pm REASON FOR STUDY: FOLLOW UP AFTER CHEST TUBE REMOVAL COMPARISON: 11/06/2018 EXAM PARAMETERS: NUMBER OF VIEWS: two views TECHNIQUE: Digital Frontal and Lateral radiographic views of the chest acquired. RADIATION DOSE: NA LIMITATIONS: none FINDINGS: LUNGS AND PLEURA: Persistent opacity in the right upper lung since examination performed earlier on the same date. Loss of volume in the left hemithorax. Shift of the cardiomediastinal str uctures to the left of the midline, unchanged finding. Mild interstitial markings in the left, stabl e findings. No pneumothorax or pleural effusion. MEDIASTINUM AND HILAR STRUCTURES: No masses or contour abnormalities. HEART AND VASCULAR STRUCTURES: Heart normal size. No evidence for failure. BONES: The osseous structures are stable in appearance. Several old right upper rib fractures. HARDWARE: None in the chest. OTHER: No other significant finding. IMPRESSION: 1. Persistent opacity in the right upper lung, unchanged from the examination performed earlier on the same date. This finding may be on the basis of infiltrate. Correlation suggested. TECHNICAL DOCUMENTATION: JOB ID: [id number] [email or web address]- All Rights Reserved Reading location - IP/workstation name: [email or web address]
--- NOTE | 2018-11-06 15:04 | PDOC TRANSFER SUMMARY ---
General Admission Date/PCP: 11/04/18 13:25 KD CISNEROS PA-C Admission Date: 11/04/18 Transfer Date: 11/06/18 Resuscitation Status: Do Not Resuscitate - Transfer Diagnosis (1) Pneumothorax Is this a current diagnosis for this admission?: Yes (2) Diabetes Is this a current diagnosis for this admission?: Yes (3) Coronary artery disease Is this a current diagnosis for this admission?: Yes (4) History of CHF (congestive heart failure) Is this a current diagnosis for this admission?: Yes (5) Hypothyroidism Is this a current diagnosis for this admission?: Yes (6) Hypoglycemia Is this a current diagnosis for this admission?: Yes (7) Do not resuscitate Is this a current diagnosis for this admission?: Yes - Transfer Medications Home Medications: Ascorbic Acid [Vitamin C 500 mg Tablet] 500 mg PO Q12 11/04/18 Atorvastatin Calcium [Lipitor 40 mg Tablet] 40 mg PO QHS 11/04/18 Calcium Carbonate/Vitamin D3 [Os-Broderick 500-Vit D3 200 Caplet] 1 tab PO Q12 11/04/18 Docusate Sodium [Colace 100 mg Capsule] 100 mg PO BID 11/04/18 Dronedarone Hydrochloride [Multaq 400 mg Tablet] 400 mg PO Q12 11/04/18 Ergocalciferol (Vitamin D2) [Drisdol 50,000 unit (1.25MG) Capsule] 50,000 unit PO .QWEEKLY 11/04/18 Escitalopram Oxalate [Lexapro 10 mg Tablet] 10 mg PO QHS 11/04/18 Fluticasone/Salmeterol [Advair 500-50 Diskus 14 Dose/Diskus] 1 inh IH Q12 11/04/18 Furosemide [Lasix 20 mg Tablet] 20 mg PO QAM 11/04/18 Guaifenesin [Mucinex] 1,200 mg PO Q12 11/04/18 Insulin Aspart [Novolog Flexpen] 0 unit SUBCUT .SLD SCALE 11/04/18 Insulin Glargine,Hum.rec.anlog [Lantus Insulin 100 Unit/1 ml 10 ml] 50 unit SUBCUT QHS 11/04/18 Ketotifen Fumarate [Zaditor] 1 drop OS Q12 11/04/18 Levothyroxine Sodium [Synthroid 0.05 mg Tablet] 0.05 mg PO Q6AM 11/04/18 Montelukast Sodium [Singulair 10 mg Tablet] 10 mg PO QHS 11/04/18 Pantoprazole Sodium [Protonix] 40 mg PO DAILY 11/04/18 Potassium Chloride [Klor-Con 10 Meq Capsule ER] 10 meq PO DAILY 11/04/18 Roflumilast [Daliresp 500 mcg Tablet] 500 mcg PO DAILY 11/04/18 Trazodone HCl [Desyrel 50 mg Tablet] 50 mg PO QHS 11/04/18 Umeclidinium Gustine [Incruse Ellipta] 1 puff IH DAILY 11/04/18 Transfer Medications: Current Medications Acetaminophen (Tylenol 325 Mg Tablet) 650 mg PO Q4HP PRN PRN Reason: pain or temp greater than 101F Stop: 12/04/18 14:08 Last Admin: 11/05/18 23:30 Dose: 650 mg Documented by: Albuterol/Ipratropium (Duoneb 3 Ml Ampul) 3 ml NEB RTQ12 [place] Stop: 12/04/18 19:59 Last Admin: 11/06/18 08:37 Dose: 3 ml Documented by: Atorvastatin Calcium (Lipitor 40 Mg Tablet) 40 mg PO QHS [facility] Stop: 12/04/18 21:59 Last Admin: 11/05/18 21:39 Dose: 40 mg Documented by: Calcium Carbonate (Os-Broderick 250 Mg With Vitamin D 125 Units) 2 tab PO Q12 [facility] Stop: 12/04/18 21:59 Last Admin: 11/06/18 09:53 Dose: 2 tab Documented by: Dextrose (Dextrose Inj 50% Syringe (25 Gm/50 Ml)) 12.5 gm IV PRN PRN; Protocol PRN Reason: FOR BG 50-69 IN ALERT PATIENT Stop: 12/04/18 15:05 Dextrose (Dextrose Inj 50% Syringe (25 Gm/50 Ml)) 25 gm IV PRN PRN; Protocol PRN Reason: PER PROTOCOL Stop: 12/04/18 15:05 Docusate Sodium (Colace 100 Mg Capsule) 100 mg PO BID [facility] Stop: 12/04/18 17:59 Last Admin: 11/06/18 09:53 Dose: Not Given Documented by: Dronedarone (Multaq 400 Mg Tablet) 400 mg PO Q12 [facility] Stop: 12/04/18 21:59 Last Admin: 11/06/18 09:53 Dose: 400 mg Documented by: Escitalopram Oxalate (Lexapro 10 Mg Tablet) 10 mg PO QHS [facility] Stop: 12/04/18 21:59 Last Admin: 11/05/18 21:40 Dose: 10 mg Documented by: Famotidine (Pepcid 20 Mg Tablet) 20 mg PO Q12 [place] Stop: 12/04/18 21:59 Last Admin: 11/06/18 09:53 Dose: 20 mg Documented by: Furosemide (Lasix 20 Mg Tablet) 20 mg PO QAM [facility] Stop: 12/05/18 07:59 Last Admin: 11/06/18 09:53 Dose: 20 mg Documented by: Glucagon (Glucagen Inj 1 Mg Vial) 1 mg IM PRN PRN; Protocol PRN Reason: Evaluate for BG < 70 Stop: 12/04/18 15:05 Glucose (Glutose 40% Gel 15 Gm Tube) 15 gm PO PRN PRN; Protocol PRN Reason: FOR BG 50-69 IN ALERT PATIENT Stop: 12/04/18 15:05 Last Admin: 11/05/18 06:09 Dose: 15 gm Documented by: Glucose (Glutose 40% Gel 15 Gm Tube) 30 gm PO PRN PRN; Protocol PRN Reason: FOR BG < 50 IN ALERT PATIENT Stop: 12/04/18 15:05 Guaifenesin (Robitussin Syrup 200 Mg/10 Ml Ud Cup) 200 mg PO Q4HP PRN PRN Reason: COUGH Stop: 12/04/18 14:08 Guaifenesin (Mucinex Sr 600 Mg Tablet.Sa) 1,200 mg PO Q12 [place] Stop: 12/04/18 21:59 Last Admin: 11/06/18 09:53 Dose: 1,200 mg Documented by: Heparin Sodium (Porcine) (Heparin Inj 5,000 Units/Ml 1 Ml Syringe) 5,000 unit SUBCUT Q8 [place] Stop: 12/04/18 21:59 Last Admin: 11/06/18 05:21 Dose: Not Given Documented by: Sodium Chloride (Nacl 0.9% 1000 Ml Iv Soln) 1,000 mls @ 125 mls/hr IV CONTINUOUS PRN PRN Reason: THIS MED IS NOT "PRN" Stop: 12/04/18 14:08 Last Admin: 11/04/18 15:57 Dose: 125 mls/hr Documented by: Influenza Virus Vaccine Quadrival (Fluarix Adlt Quad Vac 0.5 Ml Syr) 0.5 ml IM .DISCHARGE PRN PRN Reason: THIS MED IS NOT "PRN" Stop: 12/04/18 16:11 Insulin Human Lispro (Humalog Insulin 100 Unit/1 Ml 3 Ml Vial) 0 - 12 unit SUBCUT ACHS [facility]; Protocol Stop: 12/04/18 15:59 Last Admin: 11/06/18 07:39 Dose: Not Given Documented by: Levalbuterol HCl (Xopenex Neb 1.25 Mg/3 Ml Ampul) 1.25 mg NEB RTQ4HP PRN PRN Reason: SHORTNESS OF BREATH Stop: 12/04/18 14:08 Levothyroxine Sodium (Synthroid 0.05 Mg Tablet) 0.05 mg PO Q6AM [facility] Stop: 12/05/18 05:59 Last Admin: 11/06/18 05:23 Dose: 0.05 mg Documented by: Lidocaine (Lidoderm 5% (700 Mg) Transdermal Patch) 1 patch TP DAILY [facility] Stop: 12/05/18 09:59 Last Admin: 11/06/18 09:53 Dose: Not Given Documented by: Montelukast Sodium (Singulair 10 Mg Tablet) 10 mg PO QHS [facility] Stop: 12/04/18 21:59 Last Admin: 11/05/18 21:38 Dose: 10 mg Documented by: Morphine Sulfate (Morphine 10 Mg/Ml Inj) 2 mg IV Q4HP PRN PRN Reason: FOR PAIN Stop: 11/11/18 15:06 Last Admin: 11/06/18 09:58 Dose: 2 mg Documented by: Patient Own Medication (Umeclidinium Gustine [Incruse Ellipta]) 1 puff IH .DAILY [facility] Stop: 12/05/18 09:59 Potassium Chloride (Klor-Con 10 Meq Capsule Er) 10 meq PO DAILY [facility] Stop: 12/05/18 09:59 Last Admin: 11/06/18 09:52 Dose: 10 meq Documented by: Roflumilast (Daliresp 500 Mcg Tablet) 500 mcg PO DAILY [facility] Stop: 12/05/18 09:59 Last Admin: 11/06/18 09:53 Dose: 500 mcg Documented by: Sodium Chloride (Saline Flush 2.5 Ml Monoject Prefil Syrin) 2.5 ml IV Q8 [facility] Stop: 12/04/18 21:59 Last Admin: 11/06/18 05:23 Dose: 2.5 ml Documented by: Trazodone HCl (Desyrel 50 Mg Tablet) 50 mg PO QHS [facility] Stop: 12/04/18 21:59 Last Admin: 11/05/18 21:39 Dose: 50 mg Documented by: - Allergies Allergies/Adverse Reactions: No Known Allergies Allergy (Verified 05/13/18 08:29) - Diet/Activity Discharge Diet: As Tolerated Hospital Course Hospital Course: H&P: JATINDER RODRIGUEZ is a 83 year old female with a somewhat limited history due to being a poor historian, but known to have insulin-dependent diabetes mellitus, COPD, CAD, hyperlipidemia, and possibly atrial fibrillation (during last admission was on Multaq) who presented to the emergency room via interventional radiology for lung biopsy complication resulting in right-sided pneumothorax with chest tube placement and slight air leak. Evaluation in the emergency department revealed slight leukocytosis (WBCs 12.4) and hypoglycemia (glucose 41) but otherwise unremarkable labs. Follow up CXR (2 hr post tube placement) is pending. The patient is referred for admission for management of the above complaints and findings. Hospital Course: JATINDER RODRIGUEZ is a 83 year old female with a somewhat limited history due to being a poor historian, but known to have insulin-dependent diabetes mellitus, COPD, CAD, hyperlipidemia, and possibly atrial fibrillation (during last admission was on Multaq) who presented to the emergency room via interventional radiology for lung biopsy complication resulting in right-sided pneumothorax with chest tube placement and slight air leak. CXR on 11/06/2018, prior to chest tube removal, shows small anterior pneumothorax. Patient demonstrated no signs of respiratory distress. She was resting comfortably in bed, respirations are equal and unlabored. Dr. Crockett removed the chest tube on the morning of 11/06/2018. Follow-up chest x-ray, later that afternoon showed no change to the pneumothorax. Again, patient had no respiratory complaints. The patient has been deemed safe for discharge back to long-term care facility. She should follow-up at the surgical clinic within 1 week. For any further questions regarding this patient's hospitalization, please refer to the EMR. Physical Exam Vital Signs: Temp Pulse Resp BP Pulse Ox 99.2 F 93 16 119/50 L 97 11/06/18 11:11 11/06/18 14:00 11/06/18 11:11 11/06/18 11:11 11/06/18 12:00 Pulse Oximeter Continuous Start: 11/04/18 14:10 Freq: RTQ4 Status: Active Protocol: Document 11/06/18 12:00 J (Rec: 11/06/18 14:10 JDR [id number]) Pulse Oximetry Assessment Oxygen Saturation (92-100) 97 Oxygen Flow Rate (L/min) 2 Oxygen Delivery Method Nasal Cannula Equipment Usage Equipment in Use Continuous SpO2 Machine # 2 Intake & Output 11/05/18 11/06/18 11/07/18 06:59 06:59 06:59 Intake Total 110 1024 Output Total 15 1100 Balance 95 -76 Weight 64.2 kg 61.2 kg Results Laboratory Results: 11/05/18 04:47 11/05/18 04:47 Impressions: Chest X-Ray 11/06/18 13:00 IMPRESSION: 1. Persistent opacity in the right upper lung, unchanged from the examination performed earlier on the same date. This finding may be on the basis of infiltrate. Correlation suggested. Status: Imported from PACS Plan Time Spent: Greater than 30 Minutes
[2018-11-06] MEDS: ACETAMINOPHEN 325 MG TABLET PO PRN (15:59)
[2018-11-06 18:31] LABS: APPEARANCE,URINE CLEAR; BILIRUBIN,URINE NEGATIVE (NEGATIVE); COLOR,URINE STRAW; GLUCOSE, URINE NEGATIVE (NEGATIVE); KETONES,URINE NEGATIVE (NEGATIVE); LEUKOCYTE ESTERASE,URINE NEGATIVE (NEGATIVE); NITRITE,URINE NEGATIVE (NEGATIVE); PROTEIN,URINE NEGATIVE (NEGATIVE); URINE SPECIFIC GRAVITY 1.011; UROBILINOGEN,URINE NEGATIVE mg/dL (<2.0)
[2018-11-06] MEDS: TRAZODONE HCL 50 MG TABLET PO SCH (21:41)
[2018-11-06] MEDS: MONTELUKAST SODIUM 10 MG TABLET PO SCH (21:41)
[2018-11-06] MEDS: ATORVASTATIN CALCIUM 40 MG TABLET PO SCH (21:42)
[2018-11-06] MEDS: ESCITALOPRAM OXALATE 10 MG TABLET PO SCH (21:42)
[2018-11-06] MEDS: NORMAL SALINE 1000 ML 1,000 ML IV PRN (23:52)
[2018-11-07] MEDS: LEVALBUTEROL HCL NEB 1.25 MG/3 ML AMPUL NEB PRN (04:15)
[2018-11-07] MEDS ORDERED: MORPHINE SULFATE 10 MG/ML INJ ONE ×2 (04:48→04:59)
[2018-11-07] MEDS: MORPHINE SULFATE 10 MG/ML INJ IV PRN ×4 (04:51→20:18)
[2018-11-07] MEDS ORDERED: MORPHINE SULFATE 10 MG/ML INJ IV ONE ×2 (05:00→06:00)
[2018-11-07 05:34] LABS: ALANINE AMINOTRANSFERASE 17 U/L (9-52); ALBUMIN 3.6 g/dL (3.5-5.0); ALKALINE PHOSPHATASE 82 U/L (38-126); ANION GAP 11 (5-19); ASPARTATE AMINO TRANSFERASE 25 U/L (14-36); BILIRUBIN,DIRECT 0.3 mg/dL (0.0-0.4); BILIRUBIN,TOTAL 0.9 mg/dL (0.2-1.3); BLOOD UREA NITROGEN 19 mg/dL (7-20); CALCIUM 8.7 mg/dL (8.4-10.2); CARBON DIOXIDE 27 mmol/L (22-30); CHLORIDE 99 mmol/L (98-107); GLUCOSE 248 mg/dL (75-110); POTASSIUM 4.6 mmol/L (3.6-5.0); SODIUM 136.8 mmol/L (137-145); TOTAL PROTEIN 6.1 g/dL (6.3-8.2)
[2018-11-07 05:40] LABS: ABSOLUTE BASOPHILS # (AUTO) 0.1 10^3/uL (0.0-0.2); ABSOLUTE LYMPHOCYTES (AUTO) 7.2 10^3/uL (0.5-4.7); ABSOLUTE MONOCYTES (AUTO) 2.3 10^3/uL (0.1-1.4); BASOPHILS % (AUTO) 0.5 % (0-2); EOSINOPHILS % (AUTO) 0.1 % (0-6); HEMATOCRIT 38.6 % (36.0-47.0); HEMOGLOBIN 12.4 g/dL (12.0-15.5); LYMPHOCYTES % (AUTO) 41.2 % (13-45); MEAN CORPUSCULAR HEMOGLOBIN 26.3 pg (27.0-33.4); MEAN CORPUSCULAR HGB CONC 32.2 g/dL (32.0-36.0); MEAN CORPUSCULAR VOLUME 82 fl (80-97); MONOCYTES % (AUTO) 12.9 % (3-13); PLATELET COUNT 188 10^3/uL (150-450); RED BLOOD COUNT 4.74 10^6/uL (3.72-5.28); RED CELL DISTRIBUTION WIDTH 17.2 % (11.5-14.0); SEGMENTED NEUTROPHILS % (AUTO) 45.3 % (42-78); TOTAL CELLS COUNTED % (AUTO) 100 %
[2018-11-07 05:43] LABS: WHITE BLOOD COUNT 17.6 10^3/uL (4.0-10.5)
[2018-11-07] MEDS ORDERED: FUROSEMIDE INJ/PF 20 MG/2 ML SDV ONE (05:53)
--- NOTE | 2018-11-07 06:09 | RADIOLOGY REPORT (SQ) ---
EXAM DESCRIPTION: XR CHEST 1 VIEW COMPLETED DATE/TME: 11/07/2018 00:00 CLINICAL HISTORY: SOB, unresponsive COMPARISON: 11/09/2018 FINDINGS: Single frontal view of the chest. Atherosclerotic calcification of the thoracic aorta. Heart is not enlarged. Right to left mediastinal shift is stable. Elevation of the left hemidiaphragm. Interval redevelopment of small right-sided pneumothorax. No new consolidation. Right upper lung mass again identified. Osseous structures are stable. Upper abdominal soft tissues are unremarkable. IMPRESSION: 1. Interval development of small right pneumothorax. 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 I discussed the findings with Nurse Rachel Hernandez who agreed to take the result on the phone on behalf of the physician, and acknowledges their critical nature.
[2018-11-07] MEDS ORDERED: DIGOXIN INJ 0.5 MG/2 ML AMPULE IV ONE ×2 (06:15→10:00)
[2018-11-07] MEDS ORDERED: FUROSEMIDE INJ/PF 20 MG/2 ML SDV IV ONE (06:15)
[2018-11-07] MEDS ORDERED: LIDOCAINE 1% INJ-PF (10 MG/ML) 30 ML SDV ONE (07:13)
--- NOTE | 2018-11-07 07:34 | EKG REPORT ---
SEVERITY:- ABNORMAL ECG - SINUS TACHYCARDIA NONSPECIFIC INTRAVENTRICULAR CONDUCTION DELAY CONSIDER ANTEROSEPTAL INFARCT MINIMAL ST DEPRESSION, INFERIOR LEADS : Confirmed by: Valerio Duarte MD 07-Nov-2018 07:33:38
[2018-11-07] MEDS: HEPARIN SOD (PORCINE) 5,000 UNIT/ML 1 ML SYRINGE SUBCUT SCH ×3 (08:18→22:00)
--- NOTE | 2018-11-07 08:22 | Progress Note ---
Provider Note Provider Note: Critical care note: 11/07/2018 Rapid response called at 4:40 AM I arrived to initiate critical care care at 4:45 AM: Patient was seen as part of rapid response for acute severe tachycardia (rate of 150), hypotension (blood pressure 90s over 40s) and severe dyspnea with pulmonary edema identified by bibasilar crackles. Additionally the patient is noted to have significantly decreased breath sounds over the entire right lung causing suspicion for a recurrent pneumothorax or a possible tension pneumothorax. A chest x-ray was obtained and showed a recurrence of the pneumothorax but no evidence of a tension pneumothorax. Patient was treated with IV morphine to alleviate her acute pulmonary edema and ease her respirations. Responded well to this therapy and her blood pressure actually went up as her heart rate declined. Her heart rate was in the 90s with a blood pressure in the 110s over 70s at the end of my care cycle. She was subsequently given digoxin 0.25 mg IV x1 to be repeated in 4 hours and a digoxin level was ordered for the morning of 11/08/2018. Patient had an excellent response with significant improvement in her O2 sat and definite improvement in her reduced work of breathing. Because she was still somewhat dyspneic she was started on BiPAP and showed continued improvement thereafter. With significant improvement in her status the patient was left to ongoing nursing care. Patient will be moved to the ICU at the surgeon's request due to the recurrence of her pneumothorax and need for replacement of her chest tube. End of critical care time 5:15 AM
--- NOTE | 2018-11-07 08:38 | RADIOLOGY REPORT (SQ) ---
EXAM DESCRIPTION: CHEST SINGLE VIEW COMPLETED DATE/TIME: 11/07/2018 8:25 am REASON FOR STUDY: chest tube placement COMPARISON: CT-guided lung biopsy 11/04/2018 Chest films 11/06/2018, 11/07/2018 EXAM PARAMETERS: NUMBER OF VIEWS: One view. TECHNIQUE: Single frontal radiographic view of the chest acquired. RADIATION DOSE: NA LIMITATIONS: None. FINDINGS: LUNGS AND PLEURA: Large bore right chest tube is in place. No pneumothorax. Side-port of the chest tube is over the right lateral ribs. No significant right chest wall air. Report called to Dr. Root. Nodule in the right upper lobe persists. Old post radiation changes left hilum. Stable volume loss left lung. MEDIASTINUM AND HILAR STRUCTURES: Old post radiation change left hilum HEART AND VASCULAR STRUCTURES: Heart normal in size. Normal vasculature. BONES: No acute findings. HARDWARE: The right large bore chest tube in place. No pneumothorax. OTHER: No other significant finding. IMPRESSION: Right large bore chest tube in place. No pneumothorax TECHNICAL DOCUMENTATION: JOB ID: [id number] nap- [employer]- All Rights Reserved Reading location - IP/workstation name: [email or web address]
--- NOTE | 2018-11-07 08:52 | OPERATIVE REPORT E ---
Operative Report NAME: JATINDER RODRIGUEZ : 1935 AGE: 83Y DATE OF SURGERY: 11/07/2018 ROOM: 606 PREOPERATIVE DIAGNOSIS: RECURRENT PNEUMOTHORAX, RIGHT CHEST STATUS POST PIGTAIL CATHETER REMOVAL. POSTOPERATIVE DIAGNOSIS: RECURRENT PNEUMOTHORAX, RIGHT CHEST STATUS POST PIGTAIL CATHETER REMOVAL. OPERATION: 1. Placement of right 28-Nicaraguan thoracostomy tube. 2. Interpretation of portable semi upright chest x-ray. SURGEON: ELVIN ROOT M.D. ANESTHESIA: 1% lidocaine. COMPLICATIONS: None. ESTIMATED BLOOD LOSS: None. DRAINS: 1 chest tube. SUMMARY OF PROCEDURE: Dr. Root arrived in room 606; the patient is an 83-year-old white female, DNR status, now 18 hours status post right mini thoracostomy tube removal, with progressive respiratory distress. Chest x-ray 5:00 a.m. on 11/07/2018 showed pneumothorax right chest. Decision was made to insert a replacement tube. The patient was in mirna respiratory distress with severely labored breathing. The right chest was prepped with Betadine. Skin anesthetized with 1% plain lidocaine, a small incision was made with a 15 blade, and a 28-N[place]uan chest tube was inserted into the right pleural space. Upon entering to the right chest cavity, there was a massive gush of air. Chest tube was advanced to the sentinel hole 10 cm from the skin level. Chest tube secured to the skin with 0 silk suture, Xeroform, 4 x 4s, and dressing. The tube itself was attached to a Pleur-Evac chamber with some evacuation of air and intermittent air leak. There was no subcutaneous air. Portable chest x-ray obtained immediately after insertion revealed chest tube to be in satisfactory position with the sentinel hole right at the level of the chest wall. The right lung appeared to be principally reexpanded. There was a persisting mediastinal shift to the left. Further discussion will be had with the primary care team and next of kin regarding treatment plan. DICTATING PHYSICIAN: ELVIN ROOT M.D. [id number] Y#: [id number] ID: [id number] JOB#: [id number] ACCT: [id number] cc:ELVIN ROOT M.D. >
[2018-11-07] MEDS: IPRATROPIUM/ALBUTEROL 0.5-2.5 MG/3 ML AMPUL NEB SCH ×2 (08:53→20:00)
[2018-11-07] MEDS: LEVOTHYROXINE SODIUM 0.05 MG TABLET PO SCH (08:56)
[2018-11-07] MEDS: FUROSEMIDE 20 MG TABLET PO SCH (08:58)
[2018-11-07] MEDS: INSULIN LISPRO 100 UNIT/ML 3 ML VIAL SUBCUT SCH ×4 (09:02→22:08)
[2018-11-07] MEDS: GUAIFENESIN 600 MG TABLET.SA PO SCH ×2 (10:45→22:02)
[2018-11-07] MEDS: POTASSIUM CHLORIDE 10 MEQ CAPSULE.ER PO SCH (10:45)
[2018-11-07] MEDS: CALCIUM CARBONATE 250 MG/VITAMIN D3 125 UNIT TABLET PO SCH ×2 (10:45→22:03)
[2018-11-07] MEDS: DOCUSATE SODIUM 100 MG CAPSULE PO SCH ×2 (10:46→17:34)
[2018-11-07] MEDS: FAMOTIDINE 20 MG TABLET PO SCH ×2 (10:46→22:02)
[2018-11-07] MEDS ORDERED: DIGOXIN INJ 0.5 MG/2 ML AMPULE ONE (10:50)
[2018-11-07] MEDS: DRONEDARONE HYDROCHLORIDE 400 MG TABLET PO SCH ×2 (10:52→22:02)
[2018-11-07] MEDS: ROFLUMILAST 500 MCG TABLET PO SCH (10:52)
[2018-11-07] MEDS: LIDOCAINE 5% (700 MG) TRANSDERMAL ADH..PATCH TP SCH (10:52)
--- NOTE | 2018-11-07 15:15 | RADIOLOGY REPORT (SQ) ---
EXAM DESCRIPTION: CT CHEST WITH COMPLETED DATE/TIME: 11/07/2018 2:58 pm REASON FOR STUDY: recurrent pneumothorax I50.9 HEART FAILURE, UNSPECIFIED COMPARISON: CT chest 02/11/2018, 11/04/2018 PET-CT 10/27/2018 TECHNIQUE: CT scan of the chest performed using helical scanning technique with dynamic intravenous contrast injection. Images reviewed with lung, soft tissue and bone windows. Reconstructed coronal and sagittal MPR and MIP images reviewed. All images stored on PACS. All CT scanners at this facility use dose modulation, iterative reconstruction, and/or weight based d osing when appropriate to reduce radiation dose to as low as reasonably achievable (ALARA). [facility]: Dose Right [facility]: CareDose [facility]: Dose Right [facility]: Teradose 4D [facility]: I-Pulse CONTRAST TYPE AND DOSE: contrast/concentration: Isovue 350.00 mg/ml; Total Contrast Delivered: 69.0 ml; Total Saline Delivered: 51.0 ml RENAL FUNCTION: Creatinine 0.97 RADIATION DOSE: CT Rad equipment meets quality standard of care and radiation dose reduction techniq ues were employed. CTDIvol: 8.5 mGy. DLP: 311 mGy-cm. . LIMITATIONS: None. FINDINGS: LUNGS AND PLEURA: A large bore right chest tube is present, with its tip along the right l ateral 3rd/4th ribs. Trace residual basilar and anterior pneumothorax. Previously biopsied right up per lobe mass abutting the major and minor fissures is again seen, measuring about 3 x 2 cm in size. Remainder of the lungs exhibit obstructive disease with enlarged airspaces. On the left side, post r adiation fibrosis in the perihilar region is present with bronchiectasis and volume loss/ scarring. In the left posterior costophrenic sulcus, there is minimal airspace disease today, atelectasis versu s pneumonia. This is new compared to PET-CT 10/27/2018. No pleural effusions. No left pneumothorax. HILAR AND MEDIASTINAL STRUCTURES: Small hiatal hernia. No mediastinal adenopathy. HEART AND VASCULAR STRUCTURES: No aneurysm or dissection. No central pulmonary emboli. No pericardi al effusion. Heavily calcified coronary arteries HARDWARE: Right large bore chest tube UPPER ABDOMEN: No significant findings. Limited exam. THYROID AND OTHER SOFT TISSUES: No masses. No adenopathy. BONES: Multiple old healed right lateral rib fractures. Old lower thoracic compression deformities OTHER: No other significant finding. IMPRESSION: Malignant right upper lobe nodule Right large bore chest tube in place, trace anterior and basilar and apical residual pneumothorax. TECHNICAL DOCUMENTATION: JOB ID: [id number] Quality ID # [id number]: Final reports with documentation of one or more dose reduction techniques (e.g., Au tomated exposure control, adjustment of the mA and/or kV according to patient size, use of iterative reconstruction technique) 2010 [employer]- All Rights Reserved Reading location - IP/workstation name: [email or web address]
--- NOTE | 2018-11-07 15:35 | PDOC CONSULTATION ---
Consultation Consult Date: 11/07/18 Attending physician:: DELPHINE ZHONG Consult reason:: Dyspnea History of Present Illness Admission Date/PCP: 11/04/18 13:25 KD CISNEROS PA-C History of Present Illness: JATINDER RODRIGUEZ is a 83 year old female, presented as an outpatient for CT- guided needle biopsy subsequently had a pneumothorax is well known to laboratory services PD the nodule in question had underwent PET scan on 210 which dictated the procedure and biopsied the followed initially had pigtail catheter and was followed 3 hours status post a biopsy tail catheter was removed but shortly thereafter apparently she had a recurrence of her pneumothorax and now a large bore chest tube is in place still complains of some dyspnea but no cough, trace hemoptysis no fever or chills but she has developed leukocytosis greater than a 92-bugn-huck history . Past Medical History Cardiac Medical History: Reports: Congestive Heart Failure, Coronary Artery Disease, Hyperlipidema Denies: DVT, Myocardial Infarction, Hypertension, Pulmonary Embolism Pulmonary Medical History: Reports: Chronic Obstructive Pulmonary Disease (COPD) Denies: Asthma, Sleep Apnea Neurological Medical History: Denies: Seizures Endocrine Medical History: Reports: Diabetes Mellitus Type 2, Hypothyroidism Denies: Hyperthyroidism Malignancy Medical History: Reports: Lung Cancer GI Medical History: Denies: Cirrhosis, Gastroesophageal Reflux Disease, Hepatitis, Hiatal Hernia Psychiatric Medical History: Reports: Depression Hematology: Denies: Anemia, Sickle Cell Disease Infectious Medical History: Denies: Clostridium Difficile, Methicillin-Resistant Staph Aureus Past Surgical History Past Surgical History: Reports: Appendectomy, Hysterectomy Denies: Amputation, Mastectomy, Pacemaker Social History Information Source: Patient, [facility] Office, [facility] Records Smoking Status: Former Smoker Frequency of Alcohol Use: None Hx Recreational Drug Use: No Drugs: None Hx Prescription Drug Abuse: No Do you have pets?: No - Advance Directive Resuscitation Status: Do Not Resuscitate Family History Family History: COPD, Malignancy Parental Family History Reviewed: Yes Children Family History Reviewed: Yes Sibling(s) Family History Reviewed.: Yes Medication/Allergy Home Medications: Ascorbic Acid [Vitamin C 500 mg Tablet] 500 mg PO Q12 11/04/18 Atorvastatin Calcium [Lipitor 40 mg Tablet] 40 mg PO QHS 11/04/18 Calcium Carbonate/Vitamin D3 [Os-Broderick 500-Vit D3 200 Caplet] 1 tab PO Q12 11/04/18 Docusate Sodium [Colace 100 mg Capsule] 100 mg PO BID 11/04/18 Dronedarone Hydrochloride [Multaq 400 mg Tablet] 400 mg PO Q12 11/04/18 Ergocalciferol (Vitamin D2) [Drisdol 50,000 unit (1.25MG) Capsule] 50,000 unit PO .QWEEKLY 11/04/18 Escitalopram Oxalate [Lexapro 10 mg Tablet] 10 mg PO QHS 11/04/18 Fluticasone/Salmeterol [Advair 500-50 Diskus 14 Dose/Diskus] 1 inh IH Q12 11/04/18 Furosemide [Lasix 20 mg Tablet] 20 mg PO QAM 11/04/18 Guaifenesin [Mucinex] 1,200 mg PO Q12 11/04/18 Insulin Aspart [Novolog Flexpen] 0 unit SUBCUT .SLD SCALE 11/04/18 Insulin Glargine,Hum.rec.anlog [Lantus Insulin 100 Unit/1 ml 10 ml] 50 unit SUBCUT QHS 11/04/18 Ketotifen Fumarate [Zaditor] 1 drop OS Q12 11/04/18 Levothyroxine Sodium [Synthroid 0.05 mg Tablet] 0.05 mg PO Q6AM 11/04/18 Montelukast Sodium [Singulair 10 mg Tablet] 10 mg PO QHS 11/04/18 Pantoprazole Sodium [Protonix] 40 mg PO DAILY 11/04/18 Potassium Chloride [Klor-Con 10 Meq Capsule ER] 10 meq PO DAILY 11/04/18 Roflumilast [Daliresp 500 mcg Tablet] 500 mcg PO DAILY 11/04/18 Trazodone HCl [Desyrel 50 mg Tablet] 50 mg PO QHS 11/04/18 Umeclidinium Bartlett [Incruse Ellipta] 1 puff IH DAILY 11/04/18 Allergies/Adverse Reactions: No Known Allergies Allergy (Verified 05/13/18 08:29) Review of Systems Constitutional: ABSENT: headache(s), night sweats Eyes: ABSENT: visual disturbances Ears: ABSENT: hearing changes Nose, Mouth, and Throat: ABSENT: mouth pain, sore throat Cardiovascular: PRESENT: dyspnea on exertion. ABSENT: palpitations Respiratory: PRESENT: cough, dyspnea, hemoptysis Gastrointestinal: ABSENT: abdominal pain, bloating, coffee ground emesis, heartburn, hematemesis, hematochezia, melena, nausea Musculoskeletal: ABSENT: deformity Integumentary: ABSENT: pruritus, rash Neurological: ABSENT: abnormal gait, abnormal movements, abnormal speech, confusion, frequent falls, lack of coordination, memory loss Psychiatric: ABSENT: hallucinations, homidical ideation, suicidal ideation Endocrine: ABSENT: cold intolerance, heat intolerance, polydipsia, polyuria Hematologic/Lymphatic: PRESENT: easy bruising Allergic/Immunologic: ABSENT: seasonal rhinorrhea Physical Exam Vital Signs: Temp Pulse Resp BP Pulse Ox 97.9 F 88 20 118/67 95 11/07/18 12:00 11/07/18 14:00 11/07/18 14:00 11/07/18 14:00 11/07/18 14:00 Pulse Oximeter Continuous Start: 11/04/18 14:10 Freq: RTQ4 Status: Hold Protocol: Document 11/07/18 04:15 CBR (Rec: 11/07/18 04:36 CBR [id number]) Pulse Oximetry Assessment Oxygen Saturation (92-100) 85 Oxygen Flow Rate (L/min) 3 Oxygen Delivery Method Nasal Cannula Fraction of Inspired Oxygen (FIO2) 32 Equipment Usage Equipment in Use Continuous SpO2 Machine # 2 Intake & Output 11/06/18 11/07/18 11/08/18 06:59 06:59 06:59 Intake Total 1024 717 120 Output Total 1100 450 Balance -76 717 -330 Weight 61.2 kg 60.4 kg General appearance: PRESENT: no acute distress, cooperative, disheveled Head exam: PRESENT: atraumatic, normocephalic Eye exam: PRESENT: conjunctiva pale, EOMI. ABSENT: nystagmus Mouth exam: PRESENT: dry mucosa, neck supple, tongue midline Neck exam: PRESENT: tracheal deviation. ABSENT: carotid bruit, JVD, lymphadenopathy, thyromegaly, tracheostomy Respiratory exam: PRESENT: decreased breath sounds, prolonged expiratory phas, rales, rhonchi, unlabored. ABSENT: retraction, stridor Cardiovascular exam: PRESENT: RRR, +S1, +S2, tachycardia Pulses: PRESENT: normal radial pulses GI/Abdominal exam: PRESENT: soft. ABSENT: tenderness Extremities exam: ABSENT: calf tenderness, clubbing, joint swelling, pedal edema Musculoskeletal exam: ABSENT: ambulatory, deformity, dislocation Neurological exam: PRESENT: altered, awake Skin exam: PRESENT: dry, warm Results Laboratory Results: 11/07/18 04:40 11/07/18 04:40 11/06/18 11/07/18 11/07/18 18:05 04:40 04:40 WBC 17.6 H D RBC 4.74 Hgb 12.4 Hct 38.6 MCV 82 MCH 26.3 L MCHC 32.2 RDW 17.2 H Plt Count 188 Seg Neutrophils % 45.3 Lymphocytes % 41.2 Monocytes % 12.9 Eosinophils % 0.1 Basophils % 0.5 Absolute Neutrophils 8.0 Absolute Lymphocytes 7.2 H Absolute Monocytes 2.3 H Absolute Eosinophils 0.0 Absolute Basophils 0.1 Sodium 136.8 L Potassium 4.6 Chloride 99 Carbon Dioxide 27 Anion Gap 11 BUN 19 Creatinine 0.97 Est GFR ( Amer) > 60 Est GFR (Non-Af Amer) 55 L Glucose 248 H Calcium 8.7 Total Bilirubin 0.9 AST 25 ALT 17 Alkaline Phosphatase 82 Total Protein 6.1 L Albumin 3.6 Urine Color STRAW Urine Appearance CLEAR Urine pH 5.0 Ur Specific [place] 1.011 Urine Protein NEGATIVE Urine Glucose (UA) NEGATIVE Urine Ketones NEGATIVE Urine Blood NEGATIVE Urine Nitrite NEGATIVE Ur Leukocyte Esterase NEGATIVE Urine WBC (Auto) 0 Urine RBC (Auto) 1 Impressions: Chest CT 11/07/18 00:00 IMPRESSION: Malignant right upper lobe nodule Right large bore chest tube in place, trace anterior and basilar and apical residual pneumothorax. Chest X-Ray 11/07/18 00:00 IMPRESSION: Right large bore chest tube in place. No pneumothorax Assessment & Plan - Diagnosis (1) Pneumothorax after biopsy Is this a current diagnosis for this admission?: Yes Plan: Is post pigtail catheter in the hospital for poor right chest tube it appears to be volume loss on the left with medial air on the right asked the patient be put in in the left lateral decubitus position hopefully the medial air migrated towards the periphery of the right lung where it would be more available to the chest tube evacuation (2) Acute and chronic respiratory failure with hypoxia Is this a current diagnosis for this admission?: Yes Plan: oxygen ; careful use of BiPAP (3) Atrial fibrillation Qualifiers: Atrial fibrillation type: chronic Qualified Code(s): I48.2 - Chronic atrial fibrillation Is this a current diagnosis for this admission?: Yes Plan: Stable at this time (4) Adenocarcinoma of right lung Is this a current diagnosis for this admission?: Yes Plan: As per patient and oncology - Time Total Critical Time (Minutes): 55
[2018-11-07] MEDS: MONTELUKAST SODIUM 10 MG TABLET PO SCH (22:02)
[2018-11-07] MEDS: ATORVASTATIN CALCIUM 40 MG TABLET PO SCH (22:03)
[2018-11-07] MEDS: TRAZODONE HCL 50 MG TABLET PO SCH (22:03)
[2018-11-07] MEDS: ESCITALOPRAM OXALATE 10 MG TABLET PO SCH (22:03)
[2018-11-08] MEDS: MORPHINE SULFATE 10 MG/ML INJ IV PRN ×3 (02:06→20:31)
[2018-11-08] MEDS: HEPARIN SOD (PORCINE) 5,000 UNIT/ML 1 ML SYRINGE SUBCUT SCH ×3 (05:50→21:58)
[2018-11-08] MEDS: LEVOTHYROXINE SODIUM 0.05 MG TABLET PO SCH (05:50)
[2018-11-08 05:55] LABS: ABSOLUTE LYMPHOCYTES (AUTO) 0.8 10^3/uL (0.5-4.7); ABSOLUTE MONOCYTES (AUTO) 1.1 10^3/uL (0.1-1.4); ABSOLUTE NEUT (AUTO) 11.9 10^3/uL (1.7-8.2); BASOPHILS % (AUTO) 0.1 % (0-2); HEMATOCRIT 36.5 % (36.0-47.0); HEMOGLOBIN 12.1 g/dL (12.0-15.5); MEAN CORPUSCULAR HEMOGLOBIN 26.3 pg (27.0-33.4); MEAN CORPUSCULAR HGB CONC 33.1 g/dL (32.0-36.0); MEAN CORPUSCULAR VOLUME 80 fl (80-97); MONOCYTES % (AUTO) 7.7 % (3-13); PLATELET COUNT 149 10^3/uL (150-450); RED BLOOD COUNT 4.59 10^6/uL (3.72-5.28); RED CELL DISTRIBUTION WIDTH 16.6 % (11.5-14.0); SEGMENTED NEUTROPHILS % (AUTO) 86.2 % (42-78); TOTAL CELLS COUNTED % (AUTO) 100 %; WHITE BLOOD COUNT 13.8 10^3/uL (4.0-10.5)
[2018-11-08 06:23] LABS: ANION GAP 9 (5-19); BLOOD UREA NITROGEN 23 mg/dL (7-20); CALCIUM 8.7 mg/dL (8.4-10.2); CARBON DIOXIDE 33 mmol/L (22-30); CHLORIDE 96 mmol/L (98-107); DIGOXIN 0.58 ng/mL (0.8-2.0); GLUCOSE 192 mg/dL (75-110); POTASSIUM 4.2 mmol/L (3.6-5.0)
[2018-11-08] MEDS: IPRATROPIUM/ALBUTEROL 0.5-2.5 MG/3 ML AMPUL NEB SCH ×2 (08:15→20:09)
--- NOTE | 2018-11-08 08:21 | RADIOLOGY REPORT (SQ) ---
EXAM DESCRIPTION: CHEST SINGLE VIEW COMPLETED DATE/TIME: 11/08/2018 6:39 am REASON FOR STUDY: pneumothorax COMPARISON: Chest films since 11/06/2018 EXAM PARAMETERS: NUMBER OF VIEWS: One view. TECHNIQUE: Single frontal radiographic view of the chest acquired. RADIATION DOSE: NA LIMITATIONS: None. FINDINGS: LUNGS AND PLEURA: Right large bore chest tube in place, side port is superimposed on the r ight lateral ribs. No right-sided pneumothorax. 3 cm right upper lobe previously biopsied malignant mass is again seen. On the left side, there is now retrocardiac consolidation atelectasis versus pneumonia. This is new compared to previous chest film 11/07/2018. MEDIASTINUM AND HILAR STRUCTURES: Old post radiation change left hilum HEART AND VASCULAR STRUCTURES: Heart normal in size. Normal vasculature. BONES: No acute findings. HARDWARE: Right large bore chest tube in place, unchanged from yesterday OTHER: No other significant finding. IMPRESSION: No right-sided pneumothorax. Right chest tube unchanged. New consolidation in the left retrocardiac region atelectasis versus pneumonia TECHNICAL DOCUMENTATION: JOB ID: [id number] [employer]- All Rights Reserved Reading location - IP/workstation name: [email or web address]
[2018-11-08] MEDS: POTASSIUM CHLORIDE 10 MEQ CAPSULE.ER PO SCH (09:01)
[2018-11-08] MEDS: INSULIN LISPRO 100 UNIT/ML 3 ML VIAL SUBCUT SCH ×4 (09:01→22:00)
[2018-11-08] MEDS: DOCUSATE SODIUM 100 MG CAPSULE PO SCH ×2 (09:02→17:30)
[2018-11-08] MEDS: GUAIFENESIN 600 MG TABLET.SA PO SCH ×2 (09:02→21:59)
[2018-11-08] MEDS: DRONEDARONE HYDROCHLORIDE 400 MG TABLET PO SCH ×2 (09:02→21:59)
[2018-11-08] MEDS: FUROSEMIDE 20 MG TABLET PO SCH (09:02)
[2018-11-08] MEDS: ROFLUMILAST 500 MCG TABLET PO SCH (09:02)
[2018-11-08] MEDS: LIDOCAINE 5% (700 MG) TRANSDERMAL ADH..PATCH TP SCH (09:02)
[2018-11-08] MEDS: CALCIUM CARBONATE 250 MG/VITAMIN D3 125 UNIT TABLET PO SCH ×2 (09:02→21:59)
--- NOTE | 2018-11-08 12:32 | PDOC PROGRESS REPORT ---
Subjective Progress Note for:: 11/08/18 Subjective:: unchanged Reason For Visit: PNEUMOTHORAX Physical Exam Vital Signs: Temp Pulse Resp BP Pulse Ox 98.0 F 100 28 H 113/51 L 96 11/08/18 08:00 11/08/18 10:00 11/08/18 10:15 11/08/18 10:15 11/08/18 10:15 Pulse Oximeter Continuous Start: 11/04/18 14:10 Freq: RTQ4 Status: Hold Protocol: Document 11/07/18 04:15 CBR (Rec: 11/07/18 04:36 CBR [id number]) Pulse Oximetry Assessment Oxygen Saturation (92-100) 85 Oxygen Flow Rate (L/min) 3 Oxygen Delivery Method Nasal Cannula Fraction of Inspired Oxygen (FIO2) 32 Equipment Usage Equipment in Use Continuous SpO2 Machine # 2 Intake & Output 11/07/18 11/08/18 11/09/18 06:59 06:59 06:59 Intake Total 717 120 Output Total 1485 155 Balance 717 -1365 -155 Weight 60.4 kg 59.5 kg 59.5 kg General appearance: PRESENT: no acute distress, cooperative, disheveled Head exam: PRESENT: atraumatic, normocephalic Eye exam: PRESENT: conjunctiva pale, EOMI. ABSENT: nystagmus Mouth exam: PRESENT: dry mucosa, neck supple, tongue midline Neck exam: ABSENT: carotid bruit, JVD, lymphadenopathy, thyromegaly, tracheal deviation, tracheostomy Respiratory exam: PRESENT: decreased breath sounds, prolonged expiratory phas, rales, rhonchi, unlabored. ABSENT: retraction, stridor Cardiovascular exam: PRESENT: RRR, +S1, +S2 Pulses: PRESENT: normal radial pulses GI/Abdominal exam: PRESENT: soft. ABSENT: tenderness Extremities exam: ABSENT: calf tenderness, clubbing, joint swelling Musculoskeletal exam: ABSENT: deformity, dislocation Neurological exam: PRESENT: alert, awake Psychiatric exam: PRESENT: appropriate affect Skin exam: PRESENT: dry, warm Results Laboratory Results: 11/08/18 05:25 11/08/18 05:25 11/08/18 11/08/18 05:25 05:25 WBC 13.8 H RBC 4.59 Hgb 12.1 Hct 36.5 MCV 80 MCH 26.3 L MCHC 33.1 RDW 16.6 H Plt Count 149 L Seg Neutrophils % 86.2 H Lymphocytes % 6.0 L Monocytes % 7.7 Eosinophils % 0.0 Basophils % 0.1 Absolute Neutrophils 11.9 H Absolute Lymphocytes 0.8 Absolute Monocytes 1.1 Absolute Eosinophils 0.0 Absolute Basophils 0.0 Sodium 138.0 Potassium 4.2 Chloride 96 L Carbon Dioxide 33 H Anion Gap 9 BUN 23 H Creatinine 1.14 Est GFR ( Amer) 55 L Est GFR (Non-Af Amer) 46 L Glucose 192 H Calcium 8.7 Magnesium 1.7 Impressions: Chest CT 11/07/18 00:00 IMPRESSION: Malignant right upper lobe nodule Right large bore chest tube in place, trace anterior and basilar and apical residual pneumothorax. Chest X-Ray 11/08/18 06:00 IMPRESSION: No right-sided pneumothorax. Right chest tube unchanged. New consolidation in the left retrocardiac region atelectasis versus pneumonia Assessment & Plan - Diagnosis (1) Pneumothorax after biopsy Is this a current diagnosis for this admission?: Yes Plan: Is post pigtail catheter in the hospital for poor right chest tube it appears to be volume loss on the left with medial air on the right asked the patient be put in in the left lateral decubitus position hopefully the medial air migrated towards the periphery of the right lung where it would be more available to the chest tube evacuation (2) Acute and chronic respiratory failure with hypoxia Is this a current diagnosis for this admission?: Yes Plan: oxygen ; careful use of BiPAP (3) Atrial fibrillation Qualifiers: Atrial fibrillation type: chronic Qualified Code(s): I48.2 - Chronic atrial fibrillation Is this a current diagnosis for this admission?: Yes Plan: Stable at this time (4) Adenocarcinoma of right lung Is this a current diagnosis for this admission?: Yes Plan: As per patient and oncology - Time Total Critical Time (Minutes): 40
[2018-11-08] MEDS: NORMAL SALINE 1000 ML 1,000 ML IV PRN (20:38)
--- NOTE | 2018-11-08 21:13 | PDOC PROGRESS REPORT ---
Subjective Progress Note for:: 11/08/18 Subjective:: Breathing is much improved. 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 Reason For Visit: PNEUMOTHORAX Physical Exam Vital Signs: Temp Pulse Resp BP Pulse Ox 100.2 F 92 29 H 103/48 L 97 11/08/18 12:00 11/08/18 12:00 11/08/18 12:00 11/08/18 12:00 11/08/18 12:00 Pulse Oximeter Continuous Start: 11/04/18 14:10 Freq: RTQ4 Status: Hold Protocol: Document 11/07/18 04:15 CBR (Rec: 11/07/18 04:36 CBR [id number]) Pulse Oximetry Assessment Oxygen Saturation (92-100) 85 Oxygen Flow Rate (L/min) 3 Oxygen Delivery Method Nasal Cannula Fraction of Inspired Oxygen (FIO2) 32 Equipment Usage Equipment in Use Continuous SpO2 Machine # 2 Intake & Output 11/07/18 11/08/18 11/09/18 06:59 06:59 06:59 Intake Total 717 120 Output Total 1485 380 Balance 717 -1365 -380 Weight 60.4 kg 59.5 kg 59.5 kg General appearance: PRESENT: no acute distress, thin, well-developed Head exam: PRESENT: normocephalic Eye exam: PRESENT: conjunctiva pale. ABSENT: scleral icterus Ear exam: PRESENT: normal external ear exam Mouth exam: PRESENT: moist Respiratory exam: PRESENT: rales, symmetrical, other - Right-sided chest tube in place. ABSENT: rhonchi, wheezes Cardiovascular exam: PRESENT: RRR, +S1, +S2 GI/Abdominal exam: PRESENT: normal bowel sounds, soft. ABSENT: distended, tenderness Rectal exam: PRESENT: deferred Gentrourinary exam: PRESENT: indwelling catheter Extremities exam: ABSENT: pedal edema Neurological exam: PRESENT: alert, awake, oriented to person Psychiatric exam: ABSENT: agitated, anxious Results Laboratory Results: 11/08/18 05:25 11/08/18 05:25 11/08/18 11/08/18 05:25 05:25 WBC 13.8 H RBC 4.59 Hgb 12.1 Hct 36.5 MCV 80 MCH 26.3 L MCHC 33.1 RDW 16.6 H Plt Count 149 L Seg Neutrophils % 86.2 H Lymphocytes % 6.0 L Monocytes % 7.7 Eosinophils % 0.0 Basophils % 0.1 Absolute Neutrophils 11.9 H Absolute Lymphocytes 0.8 Absolute Monocytes 1.1 Absolute Eosinophils 0.0 Absolute Basophils 0.0 Sodium 138.0 Potassium 4.2 Chloride 96 L Carbon Dioxide 33 H Anion Gap 9 BUN 23 H Creatinine 1.14 Est GFR ( Amer) 55 L Est GFR (Non-Af Amer) 46 L Glucose 192 H Calcium 8.7 Magnesium 1.7 Impressions: Chest CT 11/07/18 00:00 IMPRESSION: Malignant right upper lobe nodule Right large bore chest tube in place, trace anterior and basilar and apical residual pneumothorax. Chest X-Ray 11/08/18 06:00 IMPRESSION: No right-sided pneumothorax. Right chest tube unchanged. New consolidation in the left retrocardiac region atelectasis versus pneumonia Assessment & Plan - Diagnosis (1) Acute respiratory failure with hypoxia Is this a current diagnosis for this admission?: Yes Plan: The patient is now off of BiPAP and comfortable. Her breathing is improved from yesterday. Chest x-ray still reveals pneumothorax remaining. Acute failure is resolved. (2) Pneumothorax after biopsy Is this a current diagnosis for this admission?: Yes Plan: The patient had a needle biopsy of a right lung lesion. A pigtail lesion was placed. This was later exchanged for chest tube. When the chest tube was removed the patient developed a tension pneumothorax overnight. Dr. Root inserted a another chest tube. Chest x-ray revealed remaining pneumothorax. Some of the air was on the medial aspect of the lung. We did try to delay the patient on her left side to try and have the air migrate to the chest tube. She is clearly feeling better today. (3) Adenocarcinoma of right lung Is this a current diagnosis for this admission?: Yes Plan: Biopsy results revealed non-small cell carcinoma likely adenocarcinoma. I did inform the patient but I am not sure she truly comprehended. Family was present at the bedside earlier but had gone by the time I had a chance to visit with the patient. I did tell the patient that she would have to recover quite a bit more before considering treatment. 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 We may need to add more insulin. Her sugars do seem to be elevated but stable. (5) Atrial fibrillation Qualifiers: Atrial fibrillation type: chronic Qualified Code(s): I48.2 - Chronic atrial fibrillation Is this a current diagnosis for this admission?: Yes Plan: On the current regimen the patient has reasonable rate control. (6) Hypothyroidism Qualifiers: Hypothyroidism type: unspecified Qualified Code(s): E03.9 - Hypothyroidism, unspecified Is this a current diagnosis for this admission?: Yes Plan: Continue current levothyroxine - Time Time Spent with patient: 15-24 minutes Medications reviewed and adjusted accordingly: Yes
--- NOTE | 2018-11-08 21:21 | PDOC PROGRESS REPORT ---
Subjective Progress Note for:: 11/07/18 Subjective:: Returns from repeat CT scan. Exhibits decreased oxygenation. Reason For Visit: PNEUMOTHORAX Physical Exam Vital Signs: Temp Pulse Resp BP Pulse Ox 97.9 F 88 20 118/67 95 11/07/18 12:00 11/07/18 14:00 11/07/18 14:00 11/07/18 14:00 11/07/18 14:00 Pulse Oximeter Continuous Start: 11/04/18 14:10 Freq: RTQ4 Status: Hold Protocol: Document 11/07/18 04:15 CBR (Rec: 11/07/18 04:36 CBR [id number]) Pulse Oximetry Assessment Oxygen Saturation (92-100) 85 Oxygen Flow Rate (L/min) 3 Oxygen Delivery Method Nasal Cannula Fraction of Inspired Oxygen (FIO2) 32 Equipment Usage Equipment in Use Continuous SpO2 Machine # 2 Intake & Output 11/06/18 11/07/18 11/08/18 06:59 06:59 06:59 Intake Total 1024 717 120 Output Total 1100 450 Balance -76 717 -330 Weight 61.2 kg 60.4 kg General appearance: PRESENT: thin, well-developed Exam: Moderate distress. Tachypneic and tachycardic. Respiratory exam: PRESENT: decreased breath sounds - On the left, tachypnea, other - Right chest tube in place. ABSENT: rhonchi - Distant breath sounds on the right, wheezes - No wheezes or rhonchi on the right. Cardiovascular exam: PRESENT: tachycardia GI/Abdominal exam: PRESENT: normal bowel sounds, soft. ABSENT: distended, tenderness Rectal exam: PRESENT: deferred Neurological exam: PRESENT: alert, awake, oriented to person Psychiatric exam: PRESENT: anxious Results Laboratory Results: 11/07/18 04:40 11/07/18 04:40 11/06/18 11/07/18 11/07/18 18:05 04:40 04:40 WBC 17.6 H D RBC 4.74 Hgb 12.4 Hct 38.6 MCV 82 MCH 26.3 L MCHC 32.2 RDW 17.2 H Plt Count 188 Seg Neutrophils % 45.3 Lymphocytes % 41.2 Monocytes % 12.9 Eosinophils % 0.1 Basophils % 0.5 Absolute Neutrophils 8.0 Absolute Lymphocytes 7.2 H Absolute Monocytes 2.3 H Absolute Eosinophils 0.0 Absolute Basophils 0.1 Sodium 136.8 L Potassium 4.6 Chloride 99 Carbon Dioxide 27 Anion Gap 11 BUN 19 Creatinine 0.97 Est GFR ( Amer) > 60 Est GFR (Non-Af Amer) 55 L Glucose 248 H Calcium 8.7 Total Bilirubin 0.9 AST 25 ALT 17 Alkaline Phosphatase 82 Total Protein 6.1 L Albumin 3.6 Urine Color STRAW Urine Appearance CLEAR Urine pH 5.0 Ur Specific [place] 1.011 Urine Protein NEGATIVE Urine Glucose (UA) NEGATIVE Urine Ketones NEGATIVE Urine Blood NEGATIVE Urine Nitrite NEGATIVE Ur Leukocyte Esterase NEGATIVE Urine WBC (Auto) 0 Urine RBC (Auto) 1 Impressions: Chest CT 11/07/18 00:00 IMPRESSION: Malignant right upper lobe nodule Right large bore chest tube in place, trace anterior and basilar and apical residual pneumothorax. Chest X-Ray 11/07/18 00:00 IMPRESSION: Right large bore chest tube in place. No pneumothorax Assessment & Plan - Diagnosis (1) Acute respiratory failure with hypoxia Is this a current diagnosis for this admission?: Yes Plan: The patient returns from CT scan to assess pneumothorax. She is tachypneic and tachycardic. BiPAP was utilized to help with her breathing. She slowly recovered and was able to return to nasal cannula. (2) Pneumothorax after biopsy Is this a current diagnosis for this admission?: Yes Plan: Partially resolved. Continue chest tube. (3) Adenocarcinoma of right lung Is this a current diagnosis for this admission?: Yes Plan: The patient was specifically asking about her biopsy. I will follow-up the results and inform her when they are available. 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 Adjust sliding scale based on Accu-Cheks. (5) Hypothyroidism Qualifiers: Hypothyroidism type: unspecified Qualified Code(s): E03.9 - Hypothyroidism, unspecified Is this a current diagnosis for this admission?: Yes Plan: Continue levothyroxine (6) Atrial fibrillation Qualifiers: Atrial fibrillation type: chronic Qualified Code(s): I48.2 - Chronic atrial fibrillation Is this a current diagnosis for this admission?: Yes Plan: Continue current medication regimen - Time Time Spent with patient: 25-34 minutes Medications reviewed and adjusted accordingly: Yes
[2018-11-08] MEDS: FAMOTIDINE 20 MG TABLET PO SCH (21:59)
[2018-11-08] MEDS: ESCITALOPRAM OXALATE 10 MG TABLET PO SCH (21:59)
[2018-11-08] MEDS: ATORVASTATIN CALCIUM 40 MG TABLET PO SCH (21:59)
[2018-11-08] MEDS: TRAZODONE HCL 50 MG TABLET PO SCH (21:59)
[2018-11-08] MEDS: MONTELUKAST SODIUM 10 MG TABLET PO SCH (21:59)
[2018-11-08] MEDS: PHARMACY COMMUNICATION ORDER MC SCH ×2 (22:00→22:03)
[2018-11-08] MEDS: INSULIN GLARGINE,HUM.REC.ANLOG 300 UNIT/3 ML INSULN.PEN SUBCUT SCH (22:30)
[2018-11-09] MEDS: MORPHINE SULFATE 10 MG/ML INJ IV PRN ×3 (01:22→18:57)
[2018-11-09] MEDS: NORMAL SALINE 1000 ML 1,000 ML IV PRN ×3 (04:48→21:01)
[2018-11-09] MEDS: HEPARIN SOD (PORCINE) 5,000 UNIT/ML 1 ML SYRINGE SUBCUT SCH ×3 (05:00→22:00)
[2018-11-09] MEDS: LEVOTHYROXINE SODIUM 0.05 MG TABLET PO SCH (05:09)
[2018-11-09] MEDS: ACETAMINOPHEN 325 MG TABLET PO PRN (07:27)
[2018-11-09] MEDS: IPRATROPIUM/ALBUTEROL 0.5-2.5 MG/3 ML AMPUL NEB SCH ×2 (07:59→19:35)
[2018-11-09] MEDS: INSULIN LISPRO 100 UNIT/ML 3 ML VIAL SUBCUT SCH ×4 (08:19→21:51)
[2018-11-09] MEDS: LIDOCAINE 5% (700 MG) TRANSDERMAL ADH..PATCH TP SCH (10:03)
[2018-11-09] MEDS: ROFLUMILAST 500 MCG TABLET PO SCH (10:03)
[2018-11-09] MEDS: POTASSIUM CHLORIDE 10 MEQ CAPSULE.ER PO SCH (10:03)
[2018-11-09] MEDS: DOCUSATE SODIUM 100 MG CAPSULE PO SCH ×2 (10:03→17:13)
[2018-11-09] MEDS: FUROSEMIDE 20 MG TABLET PO SCH (10:03)
[2018-11-09] MEDS: CALCIUM CARBONATE 250 MG/VITAMIN D3 125 UNIT TABLET PO SCH ×2 (10:04→22:00)
[2018-11-09] MEDS: DRONEDARONE HYDROCHLORIDE 400 MG TABLET PO SCH ×2 (10:04→22:01)
[2018-11-09] MEDS: GUAIFENESIN 600 MG TABLET.SA PO SCH ×2 (10:04→22:00)
--- NOTE | 2018-11-09 10:57 | PDOC PROGRESS REPORT ---
Subjective Subjective:: 83 y/o F s/p lung biposy. She had a postop pneumothorax, treated by radiology with a percutaneous tube thoracostomy. Her percutaneous tube was removed, and her pneumothorax recurred. She required a 28 Croatian tube thoracostomy. Today she denies SOB, CP, BELL, N/V, abdominal pain, dizziness. She does report a productive cough. Reason For Visit: PNEUMOTHORAX Physical Exam Vital Signs: Temp Pulse Resp BP Pulse Ox 100.3 F 109 H 15 121/47 L 96 11/09/18 07:22 11/09/18 07:59 11/09/18 07:59 11/09/18 07:22 11/09/18 07:59 Pulse Oximeter Continuous Start: 11/04/18 14:10 Freq: RTQ4 Status: Hold Protocol: Document 11/07/18 04:15 CBR (Rec: 11/07/18 04:36 CBR [id number]) Pulse Oximetry Assessment Oxygen Saturation (92-100) 85 Oxygen Flow Rate (L/min) 3 Oxygen Delivery Method Nasal Cannula Fraction of Inspired Oxygen (FIO2) 32 Equipment Usage Equipment in Use Continuous SpO2 Machine # 2 Intake & Output 11/08/18 11/09/18 11/10/18 06:59 06:59 06:59 Intake Total 120 1000 Output Total 1485 1130 10 Balance -1365 -130 -10 Weight 59.5 kg 59.3 kg General appearance: PRESENT: no acute distress, cooperative Head exam: PRESENT: atraumatic, normocephalic Eye exam: PRESENT: EOMI, PERRLA Neck exam: ABSENT: meningismus, tenderness, thyromegaly, tracheal deviation Respiratory exam: PRESENT: chest wall tenderness - On the right, rales, rhonchi, unlabored, other - Right-sided chest tube without obvious air leak. Chest tube remains to suction. Minimal output. Pulses: PRESENT: normal radial pulses GI/Abdominal exam: PRESENT: soft. ABSENT: distended, guarding, rigid, tenderness Rectal exam: PRESENT: deferred Extremities exam: ABSENT: clubbing Neurological exam: PRESENT: alert, awake, oriented to person, oriented to place, oriented to time, CN II-XII grossly intact Psychiatric exam: ABSENT: agitated, anxious, depressed Skin exam: ABSENT: erythema, jaundice Results Laboratory Results: 11/08/18 05:25 11/08/18 05:25 Impressions: Chest CT 11/07/18 00:00 IMPRESSION: Malignant right upper lobe nodule Right large bore chest tube in place, trace anterior and basilar and apical residual pneumothorax. Assessment & Plan - Diagnosis (1) Pneumothorax after biopsy Is this a current diagnosis for this admission?: Yes - Plan Summary Plan Summary: 83-year-old female with a recurrent pneumothorax after small bore chest tube removal. A 28 Croatian chest tube was placed by Dr. Root. There is currently no air leak. Her tube remains to suction. Repeat chest x-ray today. Chest tube is to remain on suction until tomorrow. Will reevaluate for possible removal tomorrow. Will follow.
--- NOTE | 2018-11-09 11:21 | RADIOLOGY REPORT (SQ) ---
EXAM DESCRIPTION: CHEST SINGLE VIEW COMPLETED DATE/TIME: 11/09/2018 8:57 am REASON FOR STUDY: PTX COMPARISON: Previous day. NUMBER OF VIEWS: One view. TECHNIQUE: Single frontal radiographic image of the chest acquired. LIMITATIONS: None. FINDINGS: LUNGS AND PLEURA: No significant pneumothorax. Right lung mass unchanged. Chronic volume loss on the left. Stable silhouetting of the left heart border and diaphragm. MEDIASTINUM AND HEART: Stable heart size and mediastinal structures. SUPPORT DEVICES: Appropriate location without change. BONY STRUCTURES: No acute findings. HARDWARE: None. OTHER: No other significant finding. IMPRESSION: STABLE APPEARANCE OF THE CHEST. SUPPORT DEVICES UNCHANGED. Reading location - IP/workstation name: [email or web address]
--- NOTE | 2018-11-09 15:09 | PDOC PROGRESS REPORT ---
Subjective Progress Note for:: 11/09/18 Subjective:: Admitted with recurrent pneumothorax after small bore chest tube removal and newly diagnosed lung adenocarcinoma. Chest tube remains to suction with minimal outpatient. Patient appears comfortable at time of my exam and was in deep sleep. Per discussion with RN, no overnight complaints. Reason For Visit: PNEUMOTHORAX Physical Exam Vital Signs: Temp Pulse Resp BP Pulse Ox 100.3 F 82 15 121/47 L 96 11/09/18 07:22 11/09/18 14:00 11/09/18 07:59 11/09/18 07:22 11/09/18 07:59 Pulse Oximeter Continuous Start: 11/04/18 14 :10 Freq: RTQ4 Status: Hold Protocol: Document 11/07/18 04:15 CBR (Rec: 11/07/18 04:36 CBR [id number]) Pulse Oximetry Assessment Oxygen Saturation (92-100) 85 Oxygen Flow Rate (L/min) 3 Oxygen Delivery Method Nasal Cannula Fraction of Inspired Oxygen (FIO2) 32 Equipment Usage Equipment in Use Continuous SpO2 Machine # 2 Intake & Output 11/08/18 11/09/18 11/10/18 06:59 06:59 06:59 Intake Total 120 1000 1000 Output Total 1485 1130 260 Balance -1365 -130 740 Weight 59.5 kg 59.3 kg General appearance: PRESENT: no acute distress, thin, other - Sleeping Mouth exam: PRESENT: dry mucosa Respiratory exam: PRESENT: unlabored, other - right chest tube in place on suction; small amount of serosanginous fluid draining. ABSENT: tachypnea Cardiovascular exam: PRESENT: +S1, +S2. ABSENT: tachycardia GI/Abdominal exam: PRESENT: soft. ABSENT: tenderness Neurological exam: PRESENT: other - Sleeping so unable to perform formal exam Psychiatric exam: PRESENT: appropriate affect Skin exam: PRESENT: dry, intact Results Laboratory Results: 11/08/18 05:25 11/08/18 05:25 Impressions: Chest CT 11/07/18 00:00 IMPRESSION: Malignant right upper lobe nodule Right large bore chest tube in place, trace anterior and basilar and apical residual pneumothorax. Chest X-Ray 11/09/18 00:00 IMPRESSION: STABLE APPEARANCE OF THE CHEST. SUPPORT DEVICES UNCHANGED. Assessment & Plan - Diagnosis (1) Pneumothorax after biopsy Is this a current diagnosis for this admission?: Yes Plan: S/p needle biopsy of a right lung lesion. Initially had pigtail which was replaced with chest tube. Following removal of first chest tube, patient developed tension. General surgery inserted a another chest tube and CXR verified pneumothorax. Still requiring 5L NC - Repeat CXR on 11/10 shows no clear evidence of PTX - FOllowed by general surgery - Potentilaly removed chest tube on 11/10 (2) Acute respiratory failure with hypoxia Is this a current diagnosis for this admission?: Yes Plan: Improved, previously required BiPAP during admission - Continue to wean down O2 as tolerated - Goal O2>88% (3) Adenocarcinoma of right lung Is this a current diagnosis for this admission?: Yes Plan: New diagnosis based on biopsy results - Hospitalist on 11/08 discussed results with patient however it is not clear that her family knows at this point - Will discuss with patient to determine if she is OK with talk to family - Will need to improve clinically to improve PFS - Should be seen with medical oncology to discuss treatment options (4) Diabetes Qualifiers: Diabetes mellitus type: type 2 Diabetes mellitus penitentiary insulin use: with penitentiary use Diabetes mellitus complication status: with hypoglycemia Diabetes mellitus complication detail: without coma Qualified Code(s): E11.649 - Type 2 diabetes mellitus with hypoglycemia without coma; Z79.4 - assisted (current) use of insulin Is this a current diagnosis for this admission?: Yes (5) Atrial fibrillation Qualifiers: Atrial fibrillation type: chronic Qualified Code(s): I48.2 - Chronic atrial fibrillation Is this a current diagnosis for this admission?: Yes - Time Time Spent with patient: Less than 15 minutes
[2018-11-09] MEDS: INSULIN GLARGINE,HUM.REC.ANLOG 300 UNIT/3 ML INSULN.PEN SUBCUT SCH (21:51)
[2018-11-09] MEDS: TRAZODONE HCL 50 MG TABLET PO SCH (22:00)
[2018-11-09] MEDS: MONTELUKAST SODIUM 10 MG TABLET PO SCH (22:01)
[2018-11-09] MEDS: ATORVASTATIN CALCIUM 40 MG TABLET PO SCH (22:01)
[2018-11-09] MEDS: FAMOTIDINE 20 MG TABLET PO SCH (22:01)
[2018-11-09] MEDS: ESCITALOPRAM OXALATE 10 MG TABLET PO SCH (22:01)
[2018-11-09] MEDS: PHARMACY COMMUNICATION ORDER MC SCH (22:07)
[2018-11-10 04:51] LABS: ABSOLUTE LYMPHOCYTES (AUTO) 0.7 10^3/uL (0.5-4.7); ABSOLUTE MONOCYTES (AUTO) 0.8 10^3/uL (0.1-1.4); ABSOLUTE NEUT (AUTO) 8.2 10^3/uL (1.7-8.2); BASOPHILS % (AUTO) 0.1 % (0-2); HEMATOCRIT 31.4 % (36.0-47.0); HEMOGLOBIN 10.2 g/dL (12.0-15.5); LYMPHOCYTES % (AUTO) 7.6 % (13-45); MEAN CORPUSCULAR HEMOGLOBIN 26.1 pg (27.0-33.4); MEAN CORPUSCULAR HGB CONC 32.5 g/dL (32.0-36.0); MEAN CORPUSCULAR VOLUME 81 fl (80-97); MONOCYTES % (AUTO) 8.3 % (3-13); PLATELET COUNT 154 10^3/uL (150-450); RED CELL DISTRIBUTION WIDTH 17.4 % (11.5-14.0); TOTAL CELLS COUNTED % (AUTO) 100 %; WHITE BLOOD COUNT 9.7 10^3/uL (4.0-10.5)
[2018-11-10] MEDS: LEVOTHYROXINE SODIUM 0.05 MG TABLET PO SCH (05:14)
[2018-11-10] MEDS: HEPARIN SOD (PORCINE) 5,000 UNIT/ML 1 ML SYRINGE SUBCUT SCH ×3 (05:14→21:27)
[2018-11-10] MEDS: NORMAL SALINE 1000 ML 1,000 ML IV PRN ×2 (05:15→13:54)
[2018-11-10] MEDS: IPRATROPIUM/ALBUTEROL 0.5-2.5 MG/3 ML AMPUL NEB SCH ×2 (08:14→19:36)
[2018-11-10] MEDS ORDERED: PIPERACILLIN/TAZOBACTAM 3.375 GM VIAL IV SCH (08:30)
[2018-11-10] MEDS ORDERED: VANCOMYCIN HCL 1,500 MG in DEXTROSE 5%-WATER 250 ML IV NR (08:30)
[2018-11-10] MEDS: INSULIN LISPRO 100 UNIT/ML 3 ML VIAL SUBCUT SCH ×4 (08:40→22:07)
[2018-11-10] MEDS: FUROSEMIDE 20 MG TABLET PO SCH (08:40)
[2018-11-10] MEDS: MORPHINE SULFATE 10 MG/ML INJ IV PRN ×2 (08:41→21:36)
--- NOTE | 2018-11-10 09:09 | RADIOLOGY REPORT (SQ) ---
EXAM DESCRIPTION: CHEST SINGLE VIEW COMPLETED DATE/TIME: 11/10/2018 8:21 am REASON FOR STUDY: PTX COMPARISON: 11/09/2018 NUMBER OF VIEWS: One view. TECHNIQUE: Single frontal radiographic image of the chest acquired. LIMITATIONS: None. FINDINGS: LUNGS AND PLEURA: Right basilar pneumothorax estimated 10%. Complete opacification of the left lung with ipsilateral volume loss. MEDIASTINUM AND HEART: Stable heart size and mediastinal structures. SUPPORT DEVICES: Appropriate location without change. BONY STRUCTURES: No acute findings. HARDWARE: None. OTHER: No other significant finding. IMPRESSION: Known right upper lobe mass status post chest tube placement. Small basilar pneumothora x. Interval collapse of the left lung. Reading location - IP/workstation name: [email or web address]
[2018-11-10] MEDS: POTASSIUM CHLORIDE 10 MEQ CAPSULE.ER PO SCH (09:29)
[2018-11-10] MEDS: DOCUSATE SODIUM 100 MG CAPSULE PO SCH ×2 (09:29→17:13)
[2018-11-10] MEDS: GUAIFENESIN 600 MG TABLET.SA PO SCH ×2 (09:29→21:27)
[2018-11-10] MEDS: ROFLUMILAST 500 MCG TABLET PO SCH (09:29)
[2018-11-10] MEDS: DRONEDARONE HYDROCHLORIDE 400 MG TABLET PO SCH ×2 (09:29→21:27)
[2018-11-10] MEDS: CALCIUM CARBONATE 250 MG/VITAMIN D3 125 UNIT TABLET PO SCH ×2 (09:29→21:27)
[2018-11-10] MEDS: LIDOCAINE 5% (700 MG) TRANSDERMAL ADH..PATCH TP SCH (09:42)
[2018-11-10] MEDS: PIPERACILLIN SODIUM/TAZOBACTAM 3.375 GM in NORMAL SALINE 100 ML IV SCH ×3 (12:22→23:16)
--- NOTE | 2018-11-10 13:57 | PDOC PROGRESS REPORT ---
Subjective Progress Note for:: 11/10/18 Subjective:: Admitted with recurrent pneumothorax after small bore chest tube removal and newly diagnosed lung adenocarcinoma. Chest tube remains to suction with minimal outpatient. Overnight complaint complained of more difficulty breathing and pain. Was started on BiPAP with improvement in breathing. CXR this AM shows left sided white out. Has been intermittently febrile. Spoke with patient's daughter in law this AM who is POA. Reason For Visit: PNEUMOTHORAX Physical Exam Vital Signs: Temp Pulse Resp BP Pulse Ox 100.8 F H 88 26 H 138/61 H 98 11/10/18 11:10 11/10/18 11:10 11/10/18 12:15 11/10/18 11:10 11/10/18 11:10 Pulse Oximeter Continuous Start: 11/04/18 14:10 Freq: RTQ4 Status: Hold Protocol: Document 11/07/18 04:15 CBR (Rec: 11/07/18 04:36 CBR [id number]) Pulse Oximetry Assessment Oxygen Saturation (92-100) 85 Oxygen Flow Rate (L/min) 3 Oxygen Delivery Method Nasal Cannula Fraction of Inspired Oxygen (FIO2) 32 Equipment Usage Equipment in Use Continuous SpO2 Machine # 2 Intake & Output 11/09/18 11/10/18 11/11/18 06:59 06:59 06:59 Intake Total 1000 3000 Output Total 1130 1082 225 Balance -130 1918 -225 Weight 59.3 kg 61.8 kg General appearance: PRESENT: no acute distress, thin, other - Sleeping with BiPAP on Mouth exam: PRESENT: other - Difficult to assess due to BiPAP Teeth exam: PRESENT: edentulous Respiratory exam: PRESENT: decreased breath sounds - on left side, tachypnea Cardiovascular exam: PRESENT: irregular rhythm. ABSENT: tachycardia Results Laboratory Results: 11/10/18 04:37 11/08/18 05:25 11/10/18 04:37 WBC 9.7 RBC 3.90 Hgb 10.2 L Hct 31.4 L MCV 81 MCH 26.1 L MCHC 32.5 RDW 17.4 H Plt Count 154 Seg Neutrophils % 84.0 H Lymphocytes % 7.6 L Monocytes % 8.3 Eosinophils % 0.0 Basophils % 0.1 Absolute Neutrophils 8.2 Absolute Lymphocytes 0.7 Absolute Monocytes 0.8 Absolute Eosinophils 0.0 Absolute Basophils 0.0 Impressions: Chest CT 11/07/18 00:00 IMPRESSION: Malignant right upper lobe nodule Right large bore chest tube in place, trace anterior and basilar and apical residual pneumothorax. Chest X-Ray 11/10/18 06:00 IMPRESSION: Known right upper lobe mass status post chest tube placement. Small basilar pneumothorax. Interval collapse of the left lung. Assessment & Plan - Diagnosis (1) Pneumonia Qualifiers: Laterality: left Lung location: unspecified part of lung Is this a current diagnosis for this admission?: Yes Plan: CXR on 11/10 shows complete opacification of left lung, which is new - Given fevers and concern for PNA, will treat for HCAP - Started IV vanc and IV Zosyn - Aggressively respiratory physiotherapy, breathing treatments - Per d/w POA, patient is DNR/DNI and would not want to be placed on ventilator - Also would not want temporary intubation for bronchoscopy - Will treat through with IV abx for now - BiPAP for support (2) Pneumothorax after biopsy Is this a current diagnosis for this admission?: Yes Plan: S/p needle biopsy of a right lung lesion. Initially had pigtail which was replaced with chest tube. Following removal of first chest tube, patient developed tension. General surgery inserted a another chest tube and CXR verified pneumothorax. - Repeat CXR on 11/10 shows 10% PTX - Will keep chest tube in place for now - General surgery following and aware (3) Acute respiratory failure with hypoxia Is this a current diagnosis for this admission?: Yes Plan: Per above; back on BiPAP as of 11/10, which was required earlier during admission (4) Adenocarcinoma of right lung Is this a current diagnosis for this admission?: Yes Plan: New diagnosis based on biopsy results; pt has a history of lung cancer that was treated 2-3 years ago - Hospitalist on 11/08 discussed results with patient - Discussed results with patient's daughter in law - Will need to improve clinically to improve PFS; has medical oncologist in community (5) Diabetes Qualifiers: Diabetes mellitus type: type 2 Diabetes mellitus skilled nursing insulin use: with skilled nursing use Diabetes mellitus complication status: with hypoglycemia Diabetes mellitus complication detail: without coma Qualified Code(s): E11.649 - Type 2 diabetes mellitus with hypoglycemia without coma; 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
--- NOTE | 2018-11-10 15:09 | PDOC PROGRESS REPORT ---
Subjective Progress Note for:: 11/10/18 Subjective:: 83 y/o F s/p lung biposy. She had a postop pneumothorax, treated by radiology with a percutaneous tube thoracostomy. Her percutaneous tube was removed, and her pneumothorax recurred. She required a 28 Amharic tube thoracostomy. She decompensated overnight requiring Bipap. She is having significant difficulty breathing. She cannot comunicate effectively while wearing bipap. She denies significant pain at this time. Reason For Visit: PNEUMOTHORAX Physical Exam Vital Signs: Temp Pulse Resp BP Pulse Ox 100.8 F H 83 26 H 138/61 H 98 11/10/18 11:10 11/10/18 14:00 11/10/18 12:15 11/10/18 11:10 11/10/18 11:10 Pulse Oximeter Continuous Start: 11/04/18 14:10 Freq: RTQ4 Status: Hold Protocol: Document 11/07/18 04:15 CBR (Rec: 11/07/18 04:36 CBR [id number]) Pulse Oximetry Assessment Oxygen Saturation (92-100) 85 Oxygen Flow Rate (L/min) 3 Oxygen Delivery Method Nasal Cannula Fraction of Inspired Oxygen (FIO2) 32 Equipment Usage Equipment in Use Continuous SpO2 Machine # 2 Intake & Output 11/09/18 11/10/18 11/11/18 06:59 06:59 06:59 Intake Total 1000 3000 1100 Output Total 1130 1082 225 Balance -130 1918 875 Weight 59.3 kg 61.8 kg General appearance: PRESENT: severe distress Head exam: PRESENT: atraumatic, normocephalic Eye exam: PRESENT: EOMI, PERRLA. ABSENT: scleral icterus Mouth exam: PRESENT: neck supple Neck exam: ABSENT: meningismus, tenderness, thyromegaly Respiratory exam: PRESENT: decreased breath sounds - left, rales, rhonchi, tachypnea Pulses: PRESENT: normal radial pulses Vascular exam: PRESENT: normal capillary refill. ABSENT: pallor GI/Abdominal exam: PRESENT: soft. ABSENT: distended, rebound, tenderness Rectal exam: PRESENT: deferred Extremities exam: ABSENT: clubbing Musculoskeletal exam: ABSENT: deformity Neurological exam: PRESENT: awake Psychiatric exam: PRESENT: agitated, anxious Skin exam: ABSENT: jaundice Results Laboratory Results: 11/10/18 04:37 11/08/18 05:25 11/10/18 04:37 WBC 9.7 RBC 3.90 Hgb 10.2 L Hct 31.4 L MCV 81 MCH 26.1 L MCHC 32.5 RDW 17.4 H Plt Count 154 Seg Neutrophils % 84.0 H Lymphocytes % 7.6 L Monocytes % 8.3 Eosinophils % 0.0 Basophils % 0.1 Absolute Neutrophils 8.2 Absolute Lymphocytes 0.7 Absolute Monocytes 0.8 Absolute Eosinophils 0.0 Absolute Basophils 0.0 Impressions: Chest CT 11/07/18 00:00 IMPRESSION: Malignant right upper lobe nodule Right large bore chest tube in place, trace anterior and basilar and apical residual pneumothorax. Chest X-Ray 11/10/18 06:00 IMPRESSION: Known right upper lobe mass status post chest tube placement. Small basilar pneumothorax. Interval collapse of the left lung. Assessment & Plan - Diagnosis (1) Pneumothorax after biopsy Is this a current diagnosis for this admission?: Yes - Plan Summary Plan Summary: 83-year-old female with a recurrent pneumothorax after small bore chest tube removal. A 28 Amharic chest tube was placed by Dr. Root. There is currently no air leak. Her tube remains to suction. Repeat chest x-ray today shows volume loss of the left side c/w mucus plug. Discussion held with the family by Dr. Hastings. They are not interested in further invasive procedures/interventions. Chest tube is to remain on suction until respiratory status improves. Will sign off until Pt off Bipap. Please renotify once breathing is improved and Bipap is no longer necessary.
[2018-11-10] MEDS: VANCOMYCIN HCL 1,000 MG in DEXTROSE 5%-WATER 250 ML IV SCH (17:12)
[2018-11-10] MEDS ORDERED: VANCOMYCIN HCL 1,000 MG in DEXTROSE 5%-WATER 250 ML IV NR (20:00)
[2018-11-10] MEDS: FAMOTIDINE 20 MG TABLET PO SCH (21:27)
[2018-11-10] MEDS: ESCITALOPRAM OXALATE 10 MG TABLET PO SCH (21:27)
[2018-11-10] MEDS: TRAZODONE HCL 50 MG TABLET PO SCH (21:27)
[2018-11-10] MEDS: ATORVASTATIN CALCIUM 40 MG TABLET PO SCH (21:27)
[2018-11-10] MEDS: MONTELUKAST SODIUM 10 MG TABLET PO SCH (21:27)
[2018-11-10] MEDS: PHARMACY COMMUNICATION ORDER MC SCH (21:38)
[2018-11-10] MEDS: INSULIN GLARGINE,HUM.REC.ANLOG 300 UNIT/3 ML INSULN.PEN SUBCUT SCH (22:08)
[2018-11-11] MEDS: NORMAL SALINE 1000 ML 1,000 ML IV PRN ×3 (00:33→21:05)
[2018-11-11] MEDS: HEPARIN SOD (PORCINE) 5,000 UNIT/ML 1 ML SYRINGE SUBCUT SCH ×3 (05:02→21:21)
[2018-11-11] MEDS: LEVOTHYROXINE SODIUM 0.05 MG TABLET PO SCH (05:06)
[2018-11-11] MEDS: PIPERACILLIN SODIUM/TAZOBACTAM 3.375 GM in NORMAL SALINE 100 ML IV SCH ×4 (05:06→23:09)
[2018-11-11 06:01] LABS: ABSOLUTE LYMPHOCYTES (AUTO) 0.7 10^3/uL (0.5-4.7); ABSOLUTE MONOCYTES (AUTO) 1.1 10^3/uL (0.1-1.4); ABSOLUTE NEUT (AUTO) 9.9 10^3/uL (1.7-8.2); BASOPHILS % (AUTO) 0.2 % (0-2); EOSINOPHILS % (AUTO) 0.1 % (0-6); HEMATOCRIT 30.4 % (36.0-47.0); MEAN CORPUSCULAR HEMOGLOBIN 26.2 pg (27.0-33.4); MEAN CORPUSCULAR HGB CONC 32.8 g/dL (32.0-36.0); MEAN CORPUSCULAR VOLUME 80 fl (80-97); MONOCYTES % (AUTO) 9.4 % (3-13); PLATELET COUNT 192 10^3/uL (150-450); RED CELL DISTRIBUTION WIDTH 17.5 % (11.5-14.0); SEGMENTED NEUTROPHILS % (AUTO) 84.3 % (42-78); TOTAL CELLS COUNTED % (AUTO) 100 %; WHITE BLOOD COUNT 11.8 10^3/uL (4.0-10.5)
[2018-11-11 06:17] LABS: ANION GAP 8 (5-19); BLOOD UREA NITROGEN 17 mg/dL (7-20); CALCIUM 8.2 mg/dL (8.4-10.2); CARBON DIOXIDE 25 mmol/L (22-30); CHLORIDE 112 mmol/L (98-107); GLUCOSE 175 mg/dL (75-110); POTASSIUM 3.8 mmol/L (3.6-5.0); SODIUM 144.5 mmol/L (137-145)
[2018-11-11] MEDS: FUROSEMIDE 20 MG TABLET PO SCH (08:09)
[2018-11-11] MEDS: IPRATROPIUM/ALBUTEROL 0.5-2.5 MG/3 ML AMPUL NEB SCH ×2 (08:19→20:06)
[2018-11-11] MEDS: INSULIN LISPRO 100 UNIT/ML 3 ML VIAL SUBCUT SCH ×4 (09:38→21:21)
[2018-11-11] MEDS: DOCUSATE SODIUM 100 MG CAPSULE PO SCH ×2 (09:39→17:56)
[2018-11-11] MEDS: CALCIUM CARBONATE 250 MG/VITAMIN D3 125 UNIT TABLET PO SCH ×2 (09:39→21:21)
[2018-11-11] MEDS: ROFLUMILAST 500 MCG TABLET PO SCH (09:39)
[2018-11-11] MEDS: LIDOCAINE 5% (700 MG) TRANSDERMAL ADH..PATCH TP SCH (09:39)
[2018-11-11] MEDS: VANCOMYCIN HCL 1,000 MG in DEXTROSE 5%-WATER 250 ML IV SCH (09:40)
[2018-11-11] MEDS: POTASSIUM CHLORIDE 10 MEQ CAPSULE.ER PO SCH (09:40)
[2018-11-11] MEDS: GUAIFENESIN 600 MG TABLET.SA PO SCH ×2 (09:40→21:20)
[2018-11-11] MEDS: DRONEDARONE HYDROCHLORIDE 400 MG TABLET PO SCH ×2 (09:40→21:20)
--- NOTE | 2018-11-11 16:40 | PDOC PROGRESS REPORT ---
Subjective Progress Note for:: 11/11/18 Subjective:: Admitted with recurrent pneumothorax after small bore chest tube removal and newly diagnosed lung adenocarcinoma. Chest tube remains to suction with minimal outpatient. Overnight complaint complained of more difficulty breathing and pain. Was started on BiPAP with improvement in breathing. CXR this AM shows left sided white out. Has been intermittently febrile. Spoke with patient's daughter in law this AM who is POA. No acute events overnight. Patient has not been able to be weaned off of BiPAP. She gets very distressed and desats on nasal cannula. Reason For Visit: PNEUMOTHORAX Physical Exam Vital Signs: Temp Pulse Resp BP Pulse Ox 98.1 F 89 25 H 144/64 H 98 11/11/18 12:01 11/11/18 14:00 11/11/18 12:01 11/11/18 12:01 11/11/18 12:01 Pulse Oximeter Continuous Start: 11/04/18 14:10 Freq: RTQ4 Status: Hold Protocol: Document 11/07/18 04:15 CBR (Rec: 11/07/18 04:36 CBR [id number]) Pulse Oximetry Assessment Oxygen Saturation (92-100) 85 Oxygen Flow Rate (L/min) 3 Oxygen Delivery Method Nasal Cannula Fraction of Inspired Oxygen (FIO2) 32 Equipment Usage Equipment in Use Continuous SpO2 Machine # 2 Intake & Output 11/10/18 11/11/18 11/12/18 06:59 06:59 06:59 Intake Total 3000 2550 1350 Output Total 1082 1183 425 Balance 1918 1367 925 Weight 61.8 kg 63.6 kg General appearance: PRESENT: mild distress, thin Head exam: PRESENT: atraumatic, normocephalic Respiratory exam: PRESENT: decreased breath sounds, tachypnea, wheezes. ABSENT: rales, rhonchi Cardiovascular exam: PRESENT: RRR. ABSENT: diastolic murmur, rubs, systolic murmur GI/Abdominal exam: PRESENT: normal bowel sounds, soft. ABSENT: distended, guarding, mass, organolmegaly, rebound, tenderness Neurological exam: PRESENT: alert, awake, oriented to person Results Laboratory Results: 11/11/18 05:13 11/11/18 05:13 11/11/18 11/11/18 05:13 05:13 WBC 11.8 H RBC 3.80 Hgb 10.0 L Hct 30.4 L MCV 80 MCH 26.2 L MCHC 32.8 RDW 17.5 H Plt Count 192 Seg Neutrophils % 84.3 H Lymphocytes % 6.0 L Monocytes % 9.4 Eosinophils % 0.1 Basophils % 0.2 Absolute Neutrophils 9.9 H Absolute Lymphocytes 0.7 Absolute Monocytes 1.1 Absolute Eosinophils 0.0 Absolute Basophils 0.0 Sodium 144.5 Potassium 3.8 Chloride 112 H Carbon Dioxide 25 Anion Gap 8 BUN 17 Creatinine 0.85 Est GFR ( Amer) > 60 Est GFR (Non-Af Amer) > 60 Glucose 175 H Calcium 8.2 L Impressions: Chest CT 11/07/18 00:00 IMPRESSION: Malignant right upper lobe nodule Right large bore chest tube in place, trace anterior and basilar and apical residual pneumothorax. Chest X-Ray 11/10/18 06:00 IMPRESSION: Known right upper lobe mass status post chest tube placement. Small basilar pneumothorax. Interval collapse of the left lung. Assessment & Plan - Diagnosis (1) Pneumonia Qualifiers: Laterality: left Lung location: unspecified part of lung Is this a current diagnosis for this admission?: Yes Plan: CXR on 11/10 shows complete opacification of left lung, which is new, Likely HCAP Continue Started IV vanc and IV Zosyn, aggressively respiratory physiotherapy, NEBS, Bipap Note: Per d/w POA, patient is DNR/DNI and would not want to be placed on ventilator and would not want temporary intubation for bronchoscopy (2) Adenocarcinoma of right lung Is this a current diagnosis for this admission?: Yes Plan: New diagnosis based on biopsy results; pt has a history of lung cancer that was treated 2-3 years ago Hospitalist on 11/08 discussed results with patient and with patient's daughter in law Will need to improve clinically to improve PFS; has medical oncologist in community (3) Acute respiratory failure with hypoxia Is this a current diagnosis for this admission?: Yes Plan: Per above; back on BiPAP as of 11/10, which was required earlier during admission (4) Diabetes Qualifiers: Diabetes mellitus type: type 2 Diabetes mellitus skilled nursing insulin use: with venetian blind worker use Diabetes mellitus complication status: with hypoglycemia Diabetes mellitus complication detail: without coma Qualified Code(s): E11.649 - Type 2 diabetes mellitus with hypoglycemia without coma; 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 Diabetic diet. (5) Pneumothorax after biopsy Is this a current diagnosis for this admission?: Yes Plan: S/p needle biopsy of a right lung lesion. Initially had pigtail which was replaced with chest tube. Following removal of first chest tube, patient developed tension. General surgery inserted a another chest tube and CXR verified pneumothorax.Repeat CXR on 11/10 shows 10% PTX - Will keep chest tube in place for now - General surgery following and aware (6) Atrial fibrillation Qualifiers: Atrial fibrillation type: chronic Qualified Code(s): I48.2 - Chronic atrial fibrillation Is this a current diagnosis for this admission?: Yes Plan: Chronic afib, continue current management
[2018-11-11] MEDS: MORPHINE SULFATE 10 MG/ML INJ IV PRN (17:56)
[2018-11-11] MEDS: TRAZODONE HCL 50 MG TABLET PO SCH (21:21)
[2018-11-11] MEDS: ESCITALOPRAM OXALATE 10 MG TABLET PO SCH (21:21)
[2018-11-11] MEDS: MONTELUKAST SODIUM 10 MG TABLET PO SCH (21:21)
[2018-11-11] MEDS: FAMOTIDINE 20 MG TABLET PO SCH (21:21)
[2018-11-11] MEDS: ATORVASTATIN CALCIUM 40 MG TABLET PO SCH (21:21)
[2018-11-11] MEDS: INSULIN GLARGINE,HUM.REC.ANLOG 300 UNIT/3 ML INSULN.PEN SUBCUT SCH (21:22)
[2018-11-11] MEDS: PHARMACY COMMUNICATION ORDER MC SCH (21:29)
[2018-11-11] MEDS ORDERED: PHARMACY COMMUNICATION ORDER MC SCH (22:00)
[2018-11-12] MEDS: PIPERACILLIN SODIUM/TAZOBACTAM 3.375 GM in NORMAL SALINE 100 ML IV SCH ×4 (05:41→23:45)
[2018-11-12] MEDS: LEVOTHYROXINE SODIUM 0.05 MG TABLET PO SCH (05:42)
[2018-11-12] MEDS: HEPARIN SOD (PORCINE) 5,000 UNIT/ML 1 ML SYRINGE SUBCUT SCH ×3 (05:43→21:45)
[2018-11-12] MEDS: NORMAL SALINE 1000 ML 1,000 ML IV PRN ×2 (05:47→21:43)
[2018-11-12 06:49] LABS: HEMATOCRIT 30.8 % (36.0-47.0); HEMOGLOBIN 9.9 g/dL (12.0-15.5); MEAN CORPUSCULAR HEMOGLOBIN 26.2 pg (27.0-33.4); MEAN CORPUSCULAR HGB CONC 32.2 g/dL (32.0-36.0); MEAN CORPUSCULAR VOLUME 81 fl (80-97); PLATELET COUNT 212 10^3/uL (150-450); RED BLOOD COUNT 3.78 10^6/uL (3.72-5.28); RED CELL DISTRIBUTION WIDTH 17.2 % (11.5-14.0); WHITE BLOOD COUNT 11.2 10^3/uL (4.0-10.5)
[2018-11-12 07:07] LABS: ALANINE AMINOTRANSFERASE 17 U/L (9-52); ALBUMIN 2.5 g/dL (3.5-5.0); ALKALINE PHOSPHATASE 69 U/L (38-126); ANION GAP 8 (5-19); ASPARTATE AMINO TRANSFERASE 23 U/L (14-36); BILIRUBIN,DIRECT 0.8 mg/dL (0.0-0.4); BILIRUBIN,TOTAL 1.1 mg/dL (0.2-1.3); BLOOD UREA NITROGEN 17 mg/dL (7-20); CALCIUM 8.5 mg/dL (8.4-10.2); CARBON DIOXIDE 26 mmol/L (22-30); CHLORIDE 113 mmol/L (98-107); GLUCOSE 185 mg/dL (75-110); POTASSIUM 3.7 mmol/L (3.6-5.0); SODIUM 147.2 mmol/L (137-145); TOTAL PROTEIN 4.9 g/dL (6.3-8.2)
[2018-11-12 07:21] LABS: ABSOLUTE MONOCYTES # (MANUAL) 0.9 10^3/uL (0.1-1.4); ABSOLUTE NEUTROPHILS# (MANUAL) 9.1 10^3/uL (1.7-8.2); BASOPHILS % (MANUAL) 0 % (0-2); EOSINOPHILS % (MANUAL) 2 % (0-6); LYMPHOCYTES % (MANUAL) 9 % (13-45); MONOCYTES % (MANUAL) 8 % (3-13); SEGMENTED NEUTROPHILS % (MAN) 81 % (42-78); TOTAL CELLS COUNTED 100
[2018-11-12 07:22] LABS: ANISOCYTOSIS 2+; BURR CELLS 1+; PLATELET COMMENT ADEQUATE; POIKILOCYTOSIS 1+; POLYCHROMASIA 2+
[2018-11-12] MEDS: FUROSEMIDE 20 MG TABLET PO SCH (07:34)
[2018-11-12] MEDS: INSULIN LISPRO 100 UNIT/ML 3 ML VIAL SUBCUT SCH ×4 (07:37→21:45)
[2018-11-12] MEDS: IPRATROPIUM/ALBUTEROL 0.5-2.5 MG/3 ML AMPUL NEB SCH ×2 (08:04→21:08)
[2018-11-12] MEDS: POTASSIUM CHLORIDE 10 MEQ CAPSULE.ER PO SCH (09:49)
[2018-11-12] MEDS: ROFLUMILAST 500 MCG TABLET PO SCH (09:49)
[2018-11-12] MEDS: CALCIUM CARBONATE 250 MG/VITAMIN D3 125 UNIT TABLET PO SCH ×2 (09:49→21:49)
[2018-11-12] MEDS: DOCUSATE SODIUM 100 MG CAPSULE PO SCH ×2 (09:49→18:24)
[2018-11-12] MEDS: GUAIFENESIN 600 MG TABLET.SA PO SCH ×2 (09:49→21:49)
[2018-11-12] MEDS: LIDOCAINE 5% (700 MG) TRANSDERMAL ADH..PATCH TP SCH (09:49)
[2018-11-12] MEDS: DRONEDARONE HYDROCHLORIDE 400 MG TABLET PO SCH ×2 (09:50→21:49)
[2018-11-12] MEDS: VANCOMYCIN HCL 1,000 MG in DEXTROSE 5%-WATER 250 ML IV SCH (09:50)
[2018-11-12] MEDS: MORPHINE SULFATE 10 MG/ML INJ IV PRN ×2 (13:23→19:45)
--- NOTE | 2018-11-12 14:16 | PDOC PROGRESS REPORT ---
Subjective Progress Note for:: 11/12/18 Subjective:: This is an 83 yr old female who was initially admitted for aright sided pneumothorax sustained during a lung mass biopsy. Her first chest tube was removed later but she develop recurrence and had tension pneumothorax requiring reinsertion by surgery. She subsequently developed a complete whiteout of the left lung deemed likely to be HCAP. She is a DNR/DNI. She apparently also refused bronchoscopy. Assumed care today. Per RN, she desaturated to 83% off BIPAP last night. Upon encounter this morning, she remain confused but appears more alert and daughter on bedside says she is more responsive today. She is currently off BIPAP and has been saturating well on nasal cannula for the past hour. She is slightly tachypneic in the low 20s but per daughter and nurse, she is not as labored and tachypneic as before today. Reason For Visit: PNEUMOTHORAX Physical Exam Vital Signs: Temp Pulse Resp BP Pulse Ox 97.3 F 83 22 H 148/77 H 96 11/12/18 11:53 11/12/18 11:53 11/12/18 11:53 11/12/18 11:53 11/12/18 11:53 Pulse Oximeter Continuous Start: 11/04/18 14:10 Freq: RTQ4 Status: Hold Protocol: Document 11/07/18 04:15 CBR (Rec: 11/07/18 04:36 CBR [id number]) Pulse Oximetry Assessment Oxygen Saturation (92-100) 85 Oxygen Flow Rate (L/min) 3 Oxygen Delivery Method Nasal Cannula Fraction of Inspired Oxygen (FIO2) 32 Equipment Usage Equipment in Use Continuous SpO2 Machine # 2 Intake & Output 11/11/18 11/12/18 11/13/18 06:59 06:59 06:59 Intake Total 2550 3700 400 Output Total 1183 1610 400 Balance 1367 2090 0 Weight 140 lb 3.424 oz 142 lb 10.225 oz General appearance: PRESENT: mild distress, well-developed, well-nourished Head exam: PRESENT: atraumatic, normocephalic Eye exam: PRESENT: conjunctiva pink, EOMI, PERRLA. ABSENT: scleral icterus Ear exam: PRESENT: normal external ear exam Mouth exam: PRESENT: moist, tongue midline Neck exam: ABSENT: carotid bruit, JVD, lymphadenopathy, thyromegaly Respiratory exam: PRESENT: decreased breath sounds - left mid to base, rhonchi. ABSENT: rales, wheezes Pulses: PRESENT: normal dorsalis pedis pul GI/Abdominal exam: PRESENT: normal bowel sounds, soft. ABSENT: distended, guarding, mass, organolmegaly, rebound, tenderness Rectal exam: PRESENT: deferred Neurological exam: PRESENT: alert, altered, oriented to person, CN II-XII grossly intact. ABSENT: oriented to place, oriented to time, oriented to situation, motor sensory deficit Results Laboratory Results: 11/12/18 06:37 11/12/18 06:37 11/12/18 11/12/18 06:37 06:37 WBC 11.2 H RBC 3.78 Hgb 9.9 L Hct 30.8 L MCV 81 MCH 26.2 L MCHC 32.2 RDW 17.2 H Plt Count 212 Seg Neutrophils % Not Reportable Lymphocytes % Not Reportable Monocytes % Not Reportable Eosinophils % Not Reportable Basophils % Not Reportable Absolute Neutrophils Not Reportable Absolute Lymphocytes Not Reportable Absolute Monocytes Not Reportable Absolute Eosinophils Not Reportable Absolute Basophils Not Reportable Sodium 147.2 H Potassium 3.7 Chloride 113 H Carbon Dioxide 26 Anion Gap 8 BUN 17 Creatinine 0.77 Est GFR ( Amer) > 60 Est GFR (Non-Af Amer) > 60 Glucose 185 H Calcium 8.5 Magnesium 2.2 Total Bilirubin 1.1 AST 23 ALT 17 Alkaline Phosphatase 69 Total Protein 4.9 L Albumin 2.5 L 11/06/18 17:48 Blood Blood Culture - Final NO GROWTH IN 5 DAYS 11/06/18 17:06 Blood Blood Culture - Final NO GROWTH IN 5 DAYS Impressions: Chest CT 11/07/18 00:00 IMPRESSION: Malignant right upper lobe nodule Right large bore chest tube in place, trace anterior and basilar and apical residual pneumothorax. Chest X-Ray 11/10/18 06:00 IMPRESSION: Known right upper lobe mass status post chest tube placement. Small basilar pneumothorax. Interval collapse of the left lung. 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 She has been BIPAP dependent in the past few days. She appears to have some improvement today and is tolerating the nasal cannula. (2) HCAP (healthcare-associated pneumonia) Is this a current diagnosis for this admission?: Yes Plan: Continue IV antibiotics. Will do a chest CT today due to worsening CXR findings. She required bronchoscopy but she and family refused as she is a DNR/DNI and is not amenable even for temporary intubation. Will add mucomist. (3) Pneumothorax Qualifiers: Encounter type: initial encounter Is this a current diagnosis for this admission?: Yes Plan: Right chest tube in place. Surgery will reassess for removal of chest tube when she is not BIPAP dependent. - Time Time Spent with patient: 25-34 minutes
--- NOTE | 2018-11-12 15:46 | RADIOLOGY REPORT (SQ) ---
EXAM DESCRIPTION: CT CHEST WITHOUT COMPLETED DATE/TIME: 11/12/2018 3:20 pm REASON FOR STUDY: left lung whiteout, persistent hypoxia I50.9 HEART FAILURE, UNSPECIFIED COMPARISON: PET-CT 10/27/2018 CT lung biopsy 11/04/2018 CT chest 11/07/2018 Chest films 11/04/2018 through 11/10/2018 TECHNIQUE: CT scan performed of the chest without intravenous contrast. Images reviewed with lung, soft tissue and bone windows. Reconstructed coronal and sagittal MPR images reviewed. All images st ored on PACS. All CT scanners at this facility use dose modulation, iterative reconstruction, and/or weight based d osing when appropriate to reduce radiation dose to as low as reasonably achievable (ALARA). [facility]: Dose Right [facility]: CareDose [facility]: Dose Right [facility]: Teradose 4D [facility]: [employer] RADIATION DOSE: CT Rad equipment meets quality standard of care and radiation dose reduction techniq ues were employed. CTDIvol: 9.7 mGy. DLP: 344 mGy-cm. mGy. LIMITATIONS: No technical limitations. FINDINGS: LUNGS AND PLEURA: There is now near complete opacification of the left hemithorax from lef t lung diffuse consolidation and trace left pleural fluid. Findings are worrisome for pneumonia. Op acification of left hemithorax has progressed since prior chest films Right chest tube in place, no right pneumothorax. Nodule along the posterior right upper lobe previo usly biopsied is unchanged. Trace right pleural fluid. HILAR AND MEDIASTINAL STRUCTURES: No identified masses or abnormal nodes. No obvious aneurysm. HEART AND VASCULAR STRUCTURES: No pericardial effusion. Heavily calcified coronary arteries. UPPER ABDOMEN: No significant findings. Limited exam. THYROID AND OTHER SOFT TISSUES: No masses. No adenopathy. BONES: Old lower thoracic chronic compression deformities HARDWARE: None in the chest. OTHER: No other significant findings. IMPRESSION: Diffuse left lung consolidation worrisome for pneumonia. Small left pleural effusion. Findings have progressed compared to previous studies. TECHNICAL DOCUMENTATION: JOB ID: [id number] Quality ID # [id number]: Final reports with documentation of one or more dose reduction techniques (e.g., Au tomated exposure control, adjustment of the mA and/or kV according to patient size, use of iterative reconstruction technique) 2010 [employer]- All Rights Reserved Reading location - IP/workstation name: [email or web address]
[2018-11-12] MEDS: ACETYLCYSTEINE 10% NEB 400 MG/4 ML VIAL NEB SCH (21:08)
[2018-11-12] MEDS: INSULIN GLARGINE,HUM.REC.ANLOG 300 UNIT/3 ML INSULN.PEN SUBCUT SCH (21:44)
[2018-11-12] MEDS: TRAZODONE HCL 50 MG TABLET PO SCH (21:49)
[2018-11-12] MEDS: MONTELUKAST SODIUM 10 MG TABLET PO SCH (21:49)
[2018-11-12] MEDS: ESCITALOPRAM OXALATE 10 MG TABLET PO SCH (21:49)
[2018-11-12] MEDS: FAMOTIDINE 20 MG TABLET PO SCH (21:49)
[2018-11-12] MEDS: ATORVASTATIN CALCIUM 40 MG TABLET PO SCH (21:49)
[2018-11-12] MEDS: PHARMACY COMMUNICATION ORDER MC SCH (21:50)
[2018-11-13] MEDS: LEVALBUTEROL HCL NEB 1.25 MG/3 ML AMPUL NEB PRN ×2 (02:51→13:30)
[2018-11-13] MEDS: ACETYLCYSTEINE 10% NEB 400 MG/4 ML VIAL NEB SCH ×4 (02:51→21:15)
[2018-11-13] MEDS: MORPHINE SULFATE 10 MG/ML INJ IV PRN ×3 (05:11→18:12)
[2018-11-13] MEDS: HEPARIN SOD (PORCINE) 5,000 UNIT/ML 1 ML SYRINGE SUBCUT SCH ×3 (05:23→23:25)
[2018-11-13] MEDS: PIPERACILLIN SODIUM/TAZOBACTAM 3.375 GM in NORMAL SALINE 100 ML IV SCH ×3 (05:24→17:29)
[2018-11-13] MEDS: LEVOTHYROXINE SODIUM 0.05 MG TABLET PO SCH (05:24)
[2018-11-13] MEDS: IPRATROPIUM/ALBUTEROL 0.5-2.5 MG/3 ML AMPUL NEB SCH ×2 (08:29→21:15)
[2018-11-13] MEDS: INSULIN LISPRO 100 UNIT/ML 3 ML VIAL SUBCUT SCH ×4 (10:10→23:25)
[2018-11-13] MEDS: POTASSIUM CHLORIDE 10 MEQ CAPSULE.ER PO SCH (10:17)
[2018-11-13] MEDS: FUROSEMIDE 20 MG TABLET PO SCH (10:17)
[2018-11-13] MEDS: GUAIFENESIN 600 MG TABLET.SA PO SCH ×3 (10:17→23:19)
[2018-11-13] MEDS: ROFLUMILAST 500 MCG TABLET PO SCH (10:17)
[2018-11-13] MEDS: DRONEDARONE HYDROCHLORIDE 400 MG TABLET PO SCH ×3 (10:17→23:19)
[2018-11-13] MEDS: DOCUSATE SODIUM 100 MG CAPSULE PO SCH ×2 (10:17→17:29)
[2018-11-13] MEDS: CALCIUM CARBONATE 250 MG/VITAMIN D3 125 UNIT TABLET PO SCH ×3 (10:17→23:19)
[2018-11-13] MEDS: VANCOMYCIN HCL 1,000 MG in DEXTROSE 5%-WATER 250 ML IV SCH (10:18)
[2018-11-13] MEDS: NORMAL SALINE 1000 ML 1,000 ML IV PRN ×2 (10:18→22:40)
[2018-11-13 10:47] LABS: VANCOMYCIN,TROUGH 9.2 ug/mL (5.0-20.0)
[2018-11-13] MEDS: LIDOCAINE 5% (700 MG) TRANSDERMAL ADH..PATCH TP SCH (11:07)
--- NOTE | 2018-11-13 17:35 | PDOC PROGRESS REPORT ---
Subjective Progress Note for:: 11/13/18 Subjective:: No adverse events overnight. She was off BiPAP for a short period this morning, but has been on the rest of the day. Her daughter says she is been encephalopathic all day, and does not think the patient knows who she is. Vital signs been stable. Reason For Visit: PNEUMOTHORAX Physical Exam Vital Signs: Temp Pulse Resp BP Pulse Ox 98.3 F 70 20 164/63 H 98 11/13/18 14:52 11/13/18 14:52 11/13/18 16:06 11/13/18 14:52 11/13/18 14:52 Pulse Oximeter Continuous Start: 11/04/18 14:10 Freq: RTQ4 Status: Hold Protocol: Document 11/07/18 04:15 CBR (Rec: 11/07/18 04:36 CBR [id number]) Pulse Oximetry Assessment Oxygen Saturation (92-100) 85 Oxygen Flow Rate (L/min) 3 Oxygen Delivery Method Nasal Cannula Fraction of Inspired Oxygen (FIO2) 32 Equipment Usage Equipment in Use Continuous SpO2 Machine # 2 Intake & Output 11/12/18 11/13/18 11/14/18 06:59 06:59 06:59 Intake Total 3700 1729 1421 Output Total 1610 1087 200 Balance 2090 642 1221 Weight 64.7 kg 65.9 kg General appearance: PRESENT: mild distress, well-developed, well-nourished Neck exam: ABSENT: carotid bruit, JVD, lymphadenopathy, thyromegaly Respiratory exam: PRESENT: decreased breath sounds - left mid to base, rhonchi. ABSENT: rales, wheezes Cardiovascular: RRR Pulses: PRESENT: normal dorsalis pedis pul GI/Abdominal exam: PRESENT: normal bowel sounds, soft. ABSENT: distended, g uarding, mass, organolmegaly, rebound, tenderness Neurological exam: PRESENT: awake, altered. ABSENT: oriented to place, oriented to time, oriented to situation Results Laboratory Results: 11/12/18 06:37 11/13/18 09:47 11/13/18 09:47 Creatinine 0.87 Est GFR ( Amer) > 60 Est GFR (Non-Af Amer) > 60 Impressions: Chest X-Ray 11/10/18 06:00 IMPRESSION: Known right upper lobe mass status post chest tube placement. Small basilar pneumothorax. Interval collapse of the left lung. Chest CT 11/12/18 10:15 IMPRESSION: Diffuse left lung consolidation worrisome for pneumonia. Small left pleural effusion. Findings have progressed compared to previous studies. Assessment & Plan - Diagnosis (1) Acute respiratory failure with hypoxia Is this a current diagnosis for this admission?: Yes Plan: Currently heavily BiPAP dependent, able to spend short periods off of it, but has been on it most of the day today. We will continue to try to wean as tolerated. (2) Adenocarcinoma of right lung Is this a current diagnosis for this admission?: Yes Plan: will follow-up with oncology as an outpatient (3) HCAP (healthcare-associated pneumonia) Is this a current diagnosis for this admission?: Yes Plan: Continue current antibiotic coverage, consider de-escalation in the next couple of days, cultures are pending (4) Pneumothorax after biopsy Is this a current diagnosis for this admission?: Yes Plan: She currently has her second chest tube in place, will likely not have this removed until she is off BiPAP completely. - Time Time Spent with patient: 25-34 minutes
[2018-11-13] MEDS: PHARMACY COMMUNICATION ORDER MC SCH (22:11)
[2018-11-13] MEDS: TRAZODONE HCL 50 MG TABLET PO SCH ×2 (22:42→23:20)
[2018-11-13] MEDS: ATORVASTATIN CALCIUM 40 MG TABLET PO SCH ×2 (22:42→23:19)
[2018-11-13] MEDS: FAMOTIDINE 20 MG TABLET PO SCH ×2 (22:42→23:19)
[2018-11-13] MEDS: ESCITALOPRAM OXALATE 10 MG TABLET PO SCH ×2 (22:42→23:19)
[2018-11-13] MEDS: MONTELUKAST SODIUM 10 MG TABLET PO SCH ×2 (22:42→23:18)
[2018-11-13] MEDS: INSULIN GLARGINE,HUM.REC.ANLOG 300 UNIT/3 ML INSULN.PEN SUBCUT SCH (23:25)
[2018-11-14] MEDS: PIPERACILLIN SODIUM/TAZOBACTAM 3.375 GM in NORMAL SALINE 100 ML IV SCH ×4 (00:19→17:32)
[2018-11-14] MEDS: ACETYLCYSTEINE 10% NEB 400 MG/4 ML VIAL NEB SCH ×4 (02:14→20:58)
[2018-11-14] MEDS: LEVALBUTEROL HCL NEB 1.25 MG/3 ML AMPUL NEB PRN ×2 (02:14→13:52)
[2018-11-14] MEDS: LEVOTHYROXINE SODIUM 0.05 MG TABLET PO SCH (05:16)
[2018-11-14] MEDS: HEPARIN SOD (PORCINE) 5,000 UNIT/ML 1 ML SYRINGE SUBCUT SCH ×3 (05:16→21:23)
[2018-11-14] MEDS: MORPHINE SULFATE 10 MG/ML INJ IV PRN ×2 (06:08→22:52)
[2018-11-14] MEDS: INSULIN LISPRO 100 UNIT/ML 3 ML VIAL SUBCUT SCH ×4 (07:41→22:52)
[2018-11-14] MEDS: FUROSEMIDE 20 MG TABLET PO SCH (07:52)
[2018-11-14] MEDS: IPRATROPIUM/ALBUTEROL 0.5-2.5 MG/3 ML AMPUL NEB SCH ×2 (08:03→20:58)
[2018-11-14] MEDS: NORMAL SALINE 1000 ML 1,000 ML IV PRN ×2 (08:37→21:36)
--- NOTE | 2018-11-14 10:36 | RADIOLOGY REPORT (SQ) ---
EXAM DESCRIPTION: CHEST SINGLE VIEW COMPLETED DATE/TIME: 11/14/2018 10:15 am REASON FOR STUDY: pneumonia COMPARISON: Multiple chest films since 11/04/2018 EXAM PARAMETERS: NUMBER OF VIEWS: One view. TECHNIQUE: Single frontal radiographic view of the chest acquired. RADIATION DOSE: NA LIMITATIONS: None. FINDINGS: LUNGS AND PLEURA: There is near complete opacification of the left hemithorax from left juli ng collapse and left pleural fluid. Shift of mediastinal structures into the left chest. Question e ndobronchial occlusion with mucous plugging. Right lung well inflated. Minimal airspace disease right lateral lung base likely atelectasis. Prev iously biopsied mass along the right minor fissure. No right pneumothorax. No right pleural effusio n. Right chest tube in place with the side port in the right lateral chest wall soft tissues MEDIASTINUM AND HILAR STRUCTURES: Shift of mediastinal structures into the left chest. Left hilum no t well seen. HEART AND VASCULAR STRUCTURES: Complete collapse left lung obscures the left heart border BONES: No acute findings. HARDWARE: Right chest tube in place, side port in the lower right lateral chest wall soft tissues wit hout chest wall air. OTHER: No other significant finding. IMPRESSION: No pneumothorax right lung. Complete collapse left lung with shift of mediastinal structures into the left chest. TECHNICAL DOCUMENTATION: JOB ID: [id number] [employer]- All Rights Reserved Reading location - IP/workstation name: [email or web address]
[2018-11-14] MEDS: GUAIFENESIN 600 MG TABLET.SA PO SCH ×2 (11:04→21:25)
[2018-11-14] MEDS: CALCIUM CARBONATE 250 MG/VITAMIN D3 125 UNIT TABLET PO SCH ×2 (11:04→21:24)
[2018-11-14] MEDS: POTASSIUM CHLORIDE 10 MEQ CAPSULE.ER PO SCH (11:07)
[2018-11-14] MEDS: ROFLUMILAST 500 MCG TABLET PO SCH (11:07)
[2018-11-14] MEDS: DOCUSATE SODIUM 100 MG CAPSULE PO SCH ×2 (11:07→17:32)
[2018-11-14] MEDS: DRONEDARONE HYDROCHLORIDE 400 MG TABLET PO SCH ×2 (11:07→21:25)
[2018-11-14] MEDS: LIDOCAINE 5% (700 MG) TRANSDERMAL ADH..PATCH TP SCH (11:07)
[2018-11-14] MEDS: VANCOMYCIN HCL 1,500 MG in DEXTROSE 5%-WATER 250 ML IV SCH (11:08)
--- NOTE | 2018-11-14 17:17 | PDOC PROGRESS REPORT ---
Subjective Progress Note for:: 11/14/18 Subjective:: No adverse events overnight. Her condition remains unchanged. She came off of BiPAP this morning but can only stay off for a few minutes before she had to go back on. She has not been eating or drinking anything because she cannot come off BiPAP long enough to do so. Her cough has been too weak to be productive. Reason For Visit: PNEUMOTHORAX Physical Exam Vital Signs: Temp Pulse Resp BP Pulse Ox 97.5 F 71 16 163/60 H 94 11/14/18 03:11 11/14/18 14:00 11/14/18 16:05 11/14/18 03:11 11/14/18 16:05 Pulse Oximeter Continuous Start: 11/04/18 14:10 Freq: RTQ4 Status: Hold Protocol: Document 11/07/18 04:15 CBR (Rec: 11/07/18 04:36 CBR [id number]) Pulse Oximetry Assessment Oxygen Saturation (92-100) 85 Oxygen Flow Rate (L/min) 3 Oxygen Delivery Method Nasal Cannula Fraction of Inspired Oxygen (FIO2) 32 Equipment Usage Equipment in Use Continuous SpO2 Machine # 2 Intake & Output 11/13/18 11/14/18 11/15/18 06:59 06:59 06:59 Intake Total 1729 3971 350 Output Total 1087 1757 Balance 642 2214 350 Weight 65.9 kg 67.9 kg General appearance: PRESENT: mild distress, well-developed, well-nourished Neck exam: ABSENT: carotid bruit, JVD, lymphadenopathy, thyromegaly Respiratory exam: PRESENT: decreased breath sounds - left side, rhonchi. ABSENT: rales, wheezes Cardiovascular: RRR Pulses: PRESENT: normal dorsalis pedis pul GI/Abdominal exam: PRESENT: normal bowel sounds, soft. ABSENT: distended, guarding, mass, organolmegaly, rebound, tenderness Neurological exam: PRESENT: awake, altered. ABSENT: oriented to place, oriented to time, oriented to situation Results Laboratory Results: 11/12/18 06:37 11/13/18 09:47 Impressions: Chest CT 11/12/18 10:15 IMPRESSION: Diffuse left lung consolidation worrisome for pneumonia. Small left pleural effusion. Findings have progressed compared to previous studies. Chest X-Ray 11/14/18 00:00 IMPRESSION: No pneumothorax right lung. Complete collapse left lung with shift of mediastinal structures into the left chest. Assessment & Plan - Diagnosis (1) Acute respiratory failure with hypoxia Is this a current diagnosis for this admission?: Yes Plan: Currently heavily BiPAP dependent, able to spend no more than a few minutes off of that at the time. Appears to have mucous plugging of the left main bronchus with left lung collapse on chest x-ray. Apparently family and patient had previously stated they do not want anything invasive, including endotracheal in tubation or bronchoscopy. In addition to antibiotics and bronchodilators and oxygen support, we have also got Mucomyst nebulizer treatments were giving her, but they do not seem to be having much of an effect at this point. (2) Adenocarcinoma of right lung Is this a current diagnosis for this admission?: Yes Plan: will follow-up with oncology as an outpatient (3) HCAP (healthcare-associated pneumonia) Is this a current diagnosis for this admission?: Yes Plan: Continue current antibiotic coverage, consider de-escalation in the next couple of days, cultures are pending (4) Pneumothorax after biopsy Is this a current diagnosis for this admission?: Yes Plan: She currently has her second chest tube in place, will likely not have this removed until she is off BiPAP completely. - Time Time Spent with patient: 25-34 minutes
[2018-11-14] MEDS: FAMOTIDINE 20 MG TABLET PO SCH (21:24)
[2018-11-14] MEDS: ESCITALOPRAM OXALATE 10 MG TABLET PO SCH (21:24)
[2018-11-14] MEDS: MONTELUKAST SODIUM 10 MG TABLET PO SCH (21:24)
[2018-11-14] MEDS: PHARMACY COMMUNICATION ORDER MC SCH (21:24)
[2018-11-14] MEDS: TRAZODONE HCL 50 MG TABLET PO SCH (21:25)
[2018-11-14] MEDS: ATORVASTATIN CALCIUM 40 MG TABLET PO SCH (21:25)
[2018-11-14] MEDS: INSULIN GLARGINE,HUM.REC.ANLOG 300 UNIT/3 ML INSULN.PEN SUBCUT SCH (22:54)
[2018-11-15] MEDS: PIPERACILLIN SODIUM/TAZOBACTAM 3.375 GM in NORMAL SALINE 100 ML IV SCH ×4 (00:25→17:19)
[2018-11-15] MEDS: LEVALBUTEROL HCL NEB 1.25 MG/3 ML AMPUL NEB PRN ×2 (02:06→14:09)
[2018-11-15] MEDS: ACETYLCYSTEINE 10% NEB 400 MG/4 ML VIAL NEB SCH ×4 (02:06→20:35)
[2018-11-15] MEDS: HEPARIN SOD (PORCINE) 5,000 UNIT/ML 1 ML SYRINGE SUBCUT SCH ×3 (05:24→21:32)
[2018-11-15] MEDS: NORMAL SALINE 1000 ML 1,000 ML IV PRN ×2 (05:24→17:29)
[2018-11-15] MEDS: LEVOTHYROXINE SODIUM 0.05 MG TABLET PO SCH (05:26)
[2018-11-15] MEDS: INSULIN LISPRO 100 UNIT/ML 3 ML VIAL SUBCUT SCH ×4 (07:39→21:31)
[2018-11-15] MEDS: FUROSEMIDE 20 MG TABLET PO SCH (07:47)
[2018-11-15] MEDS: MORPHINE SULFATE 10 MG/ML INJ IV PRN (08:20)
[2018-11-15] MEDS: IPRATROPIUM/ALBUTEROL 0.5-2.5 MG/3 ML AMPUL NEB SCH ×2 (08:54→20:35)
[2018-11-15] MEDS: GUAIFENESIN 600 MG TABLET.SA PO SCH ×2 (10:10→21:33)
[2018-11-15] MEDS: VANCOMYCIN HCL 1,500 MG in DEXTROSE 5%-WATER 250 ML IV SCH (10:10)
[2018-11-15] MEDS: CALCIUM CARBONATE 250 MG/VITAMIN D3 125 UNIT TABLET PO SCH ×2 (10:10→21:33)
[2018-11-15] MEDS: ROFLUMILAST 500 MCG TABLET PO SCH (10:11)
[2018-11-15] MEDS: DOCUSATE SODIUM 100 MG CAPSULE PO SCH ×2 (10:11→17:19)
[2018-11-15] MEDS: POTASSIUM CHLORIDE 10 MEQ CAPSULE.ER PO SCH (10:11)
[2018-11-15] MEDS: DRONEDARONE HYDROCHLORIDE 400 MG TABLET PO SCH ×2 (10:11→21:33)
[2018-11-15] MEDS: LIDOCAINE 5% (700 MG) TRANSDERMAL ADH..PATCH TP SCH (10:12)
--- NOTE | 2018-11-15 16:06 | PDOC PROGRESS REPORT ---
Subjective Progress Note for:: 11/15/18 Subjective:: No adverse events overnight. Her condition remains unchanged. She cannot tolerate being off BiPAP for more than a few minutes. She has not been eating or drinking anything because she cannot come off BiPAP long enough to do so. Her cough has been too weak to be productive. She is awake and does try to interact but she is too weak to really talk effectively so I cannot really assess her mental status. Reason For Visit: PNEUMOTHORAX Physical Exam Vital Signs: Temp Pulse Resp BP Pulse Ox 97.4 F 72 18 160/82 H 96 11/15/18 07:11 11/15/18 14:10 11/15/18 14:10 11/15/18 08:21 11/15/18 14:10 Pulse Oximeter Continuous Start: 11/04/18 14:10 Freq: RTQ4 Status: Hold Protocol: Document 11/07/18 04:15 CBR (Rec: 11/07/18 04:36 CBR [id number]) Pulse Oximetry Assessment Oxygen Saturation (92-100) 85 Oxygen Flow Rate (L/min) 3 Oxygen Delivery Method Nasal Cannula Fraction of Inspired Oxygen (FIO2) 32 Equipment Usage Equipment in Use Continuous SpO2 Machine # 2 Intake & Output 11/14/18 11/15/18 11/16/18 06:59 06:59 06:59 Intake Total 3971 3225 1350 Output Total 1757 3500 Balance 2214 -275 1350 Weight 67.9 kg 67.6 kg General appearance: PRESENT: mild distress, well-developed, well-nourished Neck exam: ABSENT: carotid bruit, JVD, lymphadenopathy, thyromegaly Respiratory exam: PRESENT: decreased breath sounds - left side, rhonchi. ABSENT: rales, wheezes Cardiovascular: RRR Pulses: PRESENT: normal dorsalis pedis pul GI/Abdominal exam: PRESENT: normal bowel sounds, soft. ABSENT: distended, guarding, mass, organolmegaly, rebound, tenderness Neurological exam: PRESENT: awake, altered. ABSENT: oriented to place, oriented to time, oriented to situation Results Laboratory Results: 11/12/18 06:37 11/13/18 09:47 Impressions: Chest CT 11/12/18 10:15 IMPRESSION: Diffuse left lung consolidation worrisome for pneumonia. Small left pleural effusion. Findings have progressed compared to previous studies. Chest X-Ray 11/14/18 00:00 IMPRESSION: No pneumothorax right lung. Complete collapse left lung with shift of mediastinal structures into the left chest. Assessment & Plan - Diagnosis (1) Acute respiratory failure with hypoxia Is this a current diagnosis for this admission?: Yes Plan: Currently heavily BiPAP dependent, able to spend no more than a few minutes off of that at the time. Appears to have mucous plugging of the left main bronchus with left lung collapse on chest x-ray. Apparently family and patient had previously stated they do not want anything invasive, including endotracheal intubation or bronchoscopy. In addition to antibiotics and bronchodilators and oxygen support, we have also got Mucomyst nebulizer treatments were giving her, but they do not seem to be having much of an effect at this point. (2) Adenocarcinoma of right lung Is this a current diagnosis for this admission?: Yes Plan: will follow-up with oncology as an outpatient (3) HCAP (healthcare-associated pneumonia) Is this a current diagnosis for this admission?: Yes Plan: Continue current antibiotic coverage, consider de-escalation in the next couple of days, cultures are pending (4) Pneumothorax after biopsy Is this a current diagnosis for this admission?: Yes Plan: She currently has her second chest tube in place, will likely not have this removed until she is off BiPAP completely. - Time Time Spent with patient: 25-34 minutes
[2018-11-15] MEDS: INSULIN GLARGINE,HUM.REC.ANLOG 300 UNIT/3 ML INSULN.PEN SUBCUT SCH (21:32)
[2018-11-15] MEDS: PHARMACY COMMUNICATION ORDER MC SCH (21:33)
[2018-11-15] MEDS: TRAZODONE HCL 50 MG TABLET PO SCH (21:33)
[2018-11-15] MEDS: FAMOTIDINE 20 MG TABLET PO SCH (21:33)
[2018-11-15] MEDS: ATORVASTATIN CALCIUM 40 MG TABLET PO SCH (21:33)
[2018-11-15] MEDS: ESCITALOPRAM OXALATE 10 MG TABLET PO SCH (21:33)
[2018-11-15] MEDS: MONTELUKAST SODIUM 10 MG TABLET PO SCH (21:44)
[2018-11-16] MEDS: PIPERACILLIN SODIUM/TAZOBACTAM 3.375 GM in NORMAL SALINE 100 ML IV SCH ×5 (00:22→23:59)
[2018-11-16] MEDS: ACETYLCYSTEINE 10% NEB 400 MG/4 ML VIAL NEB SCH ×4 (02:21→19:53)
[2018-11-16] MEDS: LEVALBUTEROL HCL NEB 1.25 MG/3 ML AMPUL NEB PRN (02:21)
[2018-11-16] MEDS: HEPARIN SOD (PORCINE) 5,000 UNIT/ML 1 ML SYRINGE SUBCUT SCH ×3 (05:10→21:31)
[2018-11-16] MEDS: LEVOTHYROXINE SODIUM 0.05 MG TABLET PO SCH (05:10)
[2018-11-16] MEDS: NORMAL SALINE 1000 ML 1,000 ML IV PRN ×2 (06:44→15:05)
[2018-11-16] MEDS: FUROSEMIDE 20 MG TABLET PO SCH (08:31)
[2018-11-16] MEDS: INSULIN LISPRO 100 UNIT/ML 3 ML VIAL SUBCUT SCH ×4 (08:32→21:32)
[2018-11-16] MEDS: IPRATROPIUM/ALBUTEROL 0.5-2.5 MG/3 ML AMPUL NEB SCH ×2 (08:44→19:52)
[2018-11-16] MEDS: CALCIUM CARBONATE 250 MG/VITAMIN D3 125 UNIT TABLET PO SCH ×2 (09:56→21:31)
[2018-11-16] MEDS: GUAIFENESIN 600 MG TABLET.SA PO SCH ×2 (09:56→21:31)
[2018-11-16] MEDS: DOCUSATE SODIUM 100 MG CAPSULE PO SCH ×2 (09:56→17:16)
[2018-11-16] MEDS: VANCOMYCIN HCL 1,500 MG in DEXTROSE 5%-WATER 250 ML IV SCH (09:56)
[2018-11-16] MEDS: POTASSIUM CHLORIDE 10 MEQ CAPSULE.ER PO SCH (09:56)
[2018-11-16] MEDS: ROFLUMILAST 500 MCG TABLET PO SCH (09:56)
[2018-11-16] MEDS: DRONEDARONE HYDROCHLORIDE 400 MG TABLET PO SCH ×2 (09:56→21:31)
[2018-11-16] MEDS: LIDOCAINE 5% (700 MG) TRANSDERMAL ADH..PATCH TP SCH (09:58)
--- NOTE | 2018-11-16 12:17 | RADIOLOGY REPORT (SQ) ---
EXAM DESCRIPTION: CHEST SINGLE VIEW COMPLETED DATE/TIME: 11/16/2018 12:02 pm REASON FOR STUDY: respiratory failure COMPARISON: 11/14/2018. EXAM PARAMETERS: NUMBER OF VIEWS: One view. TECHNIQUE: Single frontal radiographic view of the chest acquired. RADIATION DOSE: NA LIMITATIONS: None. FINDINGS: LUNGS AND PLEURA: Again seen is extensive volume loss in the left lung with diffuse calcif ication. Right lung relatively clear other than chronic interstitial markings. No pneumothorax. MEDIASTINUM AND HILAR STRUCTURES: No masses. Contour normal. HEART AND VASCULAR STRUCTURES: Heart normal in size. Normal vasculature. BONES: No acute findings. HARDWARE: Stable right side chest tube. The side hole is located just outside the rib cage within th e soft tissues of the chest. OTHER: No other significant finding. IMPRESSION: NO INTERVAL CHANGE. RIGHT-SIDED CHEST TUBE DESCRIBED WITH THE SIDE HOLE IN THE SOFT TISSUES OF THE CHEST WALL. NO PNEUMOTHORAX. EXTENSIVE COLLAPSE OF THE LEFT LUNG UNCHANGED. TECHNICAL DOCUMENTATION: JOB ID: [id number] [employer]- All Rights Reserved Reading location - IP/workstation name: [email or web address]
--- NOTE | 2018-11-16 16:57 | PDOC PROGRESS REPORT ---
Subjective Progress Note for:: 11/16/18 Subjective:: No adverse events overnight. Her condition remains unchanged. She cannot tolerate being off BiPAP for more than a few minutes. She has not been eating or drinking anything because she cannot come off BiPAP long enough to do so. Her cough has been too weak to be productive. Her family says she leaks looks comfortable while she is on BiPAP. Reason For Visit: PNEUMOTHORAX Physical Exam Vital Signs: Temp Pulse Resp BP Pulse Ox 97.3 F 69 21 H 151/59 H 100 11/16/18 12:01 11/16/18 14:00 11/16/18 12:01 11/16/18 12:01 11/16/18 12:01 Pulse Oximeter Continuous Start: 11/04/18 14:10 Freq: RTQ4 Status: Hold Protocol: Document 11/07/18 04:15 CBR (Rec: 11/07/18 04:36 CBR [id number]) Pulse Oximetry Assessment Oxygen Saturation (92-100) 85 Oxygen Flow Rate (L/min) 3 Oxygen Delivery Method Nasal Cannula Fraction of Inspired Oxygen (FIO2) 32 Equipment Usage Equipment in Use Continuous SpO2 Machine # 2 Intake & Output 11/15/18 11/16/18 11/17/18 06:59 06:59 06:59 Intake Total 3225 3000 1550 Output Total 3500 3310 475 Balance -275 -310 1075 Weight 67.6 kg 66.8 kg General appearance: PRESENT: mild distress, well-developed, well-nourished Neck exam: ABSENT: carotid bruit, JVD, lymphadenopathy, thyromegaly Respiratory exam: PRESENT: decreased breath sounds - left side, rhonchi. ABSENT: rales, wheezes Cardiovascular: RRR Pulses: PRESENT: normal dorsalis pedis pul GI/Abdominal exam: PRESENT: normal bowel sounds, soft. ABSENT: distended, guarding, mass, organolmegaly, rebound, tenderness Neurological exam: PRESENT: awake, altered. ABSENT: oriented to place, oriented to time, oriented to situation Results Laboratory Results: 11/12/18 06:37 11/13/18 09:47 Impressions: Chest CT 11/12/18 10:15 IMPRESSION: Diffuse left lung consolidation worrisome for pneumonia. Small left pleural effusion. Findings have progressed compared to previous studies. Chest X-Ray 11/16/18 00:00 IMPRESSION: NO INTERVAL CHANGE. RIGHT-SIDED CHEST TUBE DESCRIBED WITH THE SIDE HOLE IN THE SOFT TISSUES OF THE CHEST WALL. NO PNEUMOTHORAX. EXTENSIVE COLLAPSE OF THE LEFT LUNG UNCHANGED. Assessment & Plan - Diagnosis (1) Acute respiratory failure with hypoxia Is this a current diagnosis for this admission?: Yes Plan: Currently heavily BiPAP dependent, able to spend no more than a few minutes off of that at the time. Appears to have mucous plugging of the left main bronchus with left lung collapse on chest x-ray. Apparently family and patient had previously stated they do not want anything invasive, including endotracheal intubation or bronchoscopy. In addition to antibiotics and bronchodilators and oxygen support, we have also got Mucomyst nebulizer treatments were giving her, but they do not seem to be having much of an effect at this point. (2) Adenocarcinoma of right lung Is this a current diagnosis for this admission?: Yes Plan: will follow-up with oncology as an outpatient (3) HCAP (healthcare-associated pneumonia) Is this a current diagnosis for this admission?: Yes Plan: Continue current antibiotic coverage, consider de-escalation in the next couple of days, cultures are pending (4) Pneumothorax after biopsy Is this a current diagnosis for this admission?: Yes Plan: She currently has her second chest tube in place, will likely not have this removed until she is off BiPAP completely. - Time Time Spent with patient: 25-34 minutes
[2018-11-16] MEDS: ATORVASTATIN CALCIUM 40 MG TABLET PO SCH (21:31)
[2018-11-16] MEDS: FAMOTIDINE 20 MG TABLET PO SCH (21:31)
[2018-11-16] MEDS: TRAZODONE HCL 50 MG TABLET PO SCH (21:31)
[2018-11-16] MEDS: ESCITALOPRAM OXALATE 10 MG TABLET PO SCH (21:31)
[2018-11-16] MEDS: MONTELUKAST SODIUM 10 MG TABLET PO SCH (21:31)
[2018-11-16] MEDS: MORPHINE SULFATE 10 MG/ML INJ IV PRN (21:31)
[2018-11-16] MEDS: INSULIN GLARGINE,HUM.REC.ANLOG 300 UNIT/3 ML INSULN.PEN SUBCUT SCH (21:32)
[2018-11-16] MEDS: PHARMACY COMMUNICATION ORDER MC SCH (21:33)
[2018-11-17] MEDS: ACETYLCYSTEINE 10% NEB 400 MG/4 ML VIAL NEB SCH ×4 (02:21→19:46)
[2018-11-17] MEDS: LEVALBUTEROL HCL NEB 1.25 MG/3 ML AMPUL NEB PRN ×2 (02:21→11:59)
[2018-11-17] MEDS: HEPARIN SOD (PORCINE) 5,000 UNIT/ML 1 ML SYRINGE SUBCUT SCH ×3 (05:13→21:35)
[2018-11-17] MEDS: PIPERACILLIN SODIUM/TAZOBACTAM 3.375 GM in NORMAL SALINE 100 ML IV SCH ×2 (05:18→17:18)
[2018-11-17] MEDS: LEVOTHYROXINE SODIUM 0.05 MG TABLET PO SCH (05:18)
[2018-11-17] MEDS: NORMAL SALINE 1000 ML 1,000 ML IV PRN ×3 (05:19→21:37)
[2018-11-17] MEDS: IPRATROPIUM/ALBUTEROL 0.5-2.5 MG/3 ML AMPUL NEB SCH ×2 (07:57→19:45)
[2018-11-17 10:20] LABS: VANCOMYCIN,TROUGH 14.4 ug/mL (5.0-20.0)
[2018-11-17] MEDS: INSULIN LISPRO 100 UNIT/ML 3 ML VIAL SUBCUT SCH ×4 (10:27→21:35)
[2018-11-17] MEDS: DOCUSATE SODIUM 100 MG CAPSULE PO SCH ×2 (10:29→17:18)
[2018-11-17] MEDS: POTASSIUM CHLORIDE 10 MEQ CAPSULE.ER PO SCH (10:30)
[2018-11-17] MEDS: CALCIUM CARBONATE 250 MG/VITAMIN D3 125 UNIT TABLET PO SCH ×2 (10:30→21:34)
[2018-11-17] MEDS: VANCOMYCIN HCL 1,500 MG in DEXTROSE 5%-WATER 250 ML IV SCH (10:30)
[2018-11-17] MEDS: FUROSEMIDE 20 MG TABLET PO SCH (10:30)
[2018-11-17] MEDS: ROFLUMILAST 500 MCG TABLET PO SCH (10:30)
[2018-11-17] MEDS: DRONEDARONE HYDROCHLORIDE 400 MG TABLET PO SCH ×2 (10:30→21:34)
[2018-11-17] MEDS: GUAIFENESIN 600 MG TABLET.SA PO SCH ×2 (10:30→21:34)
[2018-11-17] MEDS: LIDOCAINE 5% (700 MG) TRANSDERMAL ADH..PATCH TP SCH (10:31)
--- NOTE | 2018-11-17 12:08 | RADIOLOGY REPORT (SQ) ---
EXAM DESCRIPTION: CHEST SINGLE VIEW COMPLETED DATE/TIME: 11/17/2018 11:56 am REASON FOR STUDY: hypoxemia COMPARISON: 11/24/2018. EXAM PARAMETERS: NUMBER OF VIEWS: One view. TECHNIQUE: Single frontal radiographic view of the chest acquired. RADIATION DOSE: NA LIMITATIONS: None. FINDINGS: LUNGS AND PLEURA: Continued complete opacification of the left hemithorax. Right-sided ch est tube. No pneumothorax. Chronic interstitial changes. MEDIASTINUM AND HILAR STRUCTURES: No masses. Contour normal. HEART AND VASCULAR STRUCTURES: Heart normal in size. Normal vasculature. BONES: No acute findings. HARDWARE: Right-sided chest tube with the side hole now located at the rib margin. OTHER: No other significant finding. IMPRESSION: CONTINUED COMPLETE OPACIFICATION OF THE LEFT HEMITHORAX. RIGHT-SIDED CHEST TUBE DESC RIBED WITH NO PNEUMOTHORAX. TECHNICAL DOCUMENTATION: JOB ID: [id number] [employer]- All Rights Reserved Reading location - IP/workstation name: [email or web address]
--- NOTE | 2018-11-17 16:16 | PDOC PROGRESS REPORT ---
Subjective Progress Note for:: 11/17/18 Subjective:: No adverse events overnight. Was actually able to come off BiPAP onto the nasal cannula this morning for a few hours, the first time she is been able to do so in several days. Still has nonproductive cough. Ate a little bit of food last night and this morning. Reason For Visit: PNEUMOTHORAX Physical Exam Vital Signs: Temp Pulse Resp BP Pulse Ox 97.5 F 73 16 119/54 L 96 11/17/18 07:07 11/17/18 14:00 11/17/18 11:59 11/17/18 07:07 11/17/18 11:59 Pulse Oximeter Continuous Start: 11/04/18 14:10 Freq: RTQ4 Status: Hold Protocol: Document 11/07/18 04:15 CBR (Rec: 11/07/18 04:36 CBR [id number]) Pulse Oximetry Assessment Oxygen Saturation (92-100) 85 Oxygen Flow Rate (L/min) 3 Oxygen Delivery Method Nasal Cannula Fraction of Inspired Oxygen (FIO2) 32 Equipment Usage Equipment in Use Continuous SpO2 Machine # 2 Intake & Output 11/16/18 11/17/18 11/18/18 06:59 06:59 06:59 Intake Total 3000 3090 1196 Output Total 3310 2775 Balance -191 675 1200 Weight 66.8 kg 69.2 kg General appearance: PRESENT: mild distress, well-developed, well-nourished Neck exam: ABSENT: carotid bruit, JVD, lymphadenopathy, thyromegaly Respiratory exam: PRESENT: decreased breath sounds - left side, rhonchi. ABSENT: rales, wheezes Cardiovascular: RRR Pulses: PRESENT: normal dorsalis pedis pulse GI/Abdominal exam: PRESENT: normal bowel sounds, soft. ABSENT: distended, guarding, mass, organolmegaly, rebound, tenderness Neurological exam: PRESENT: awake, altered. ABSENT: oriented to place, oriented to time, oriented to situation Results Laboratory Results: 11/12/18 06:37 11/17/18 09:36 11/17/18 09:36 Creatinine 0.70 Est GFR ( Amer) > 60 Est GFR (Non-Af Amer) > 60 Impressions: Chest CT 11/12/18 10:15 IMPRESSION: Diffuse left lung consolidation worrisome for pneumonia. Small left pleural effusion. Findings have progressed compared to previous studies. Chest X-Ray 11/17/18 00:00 IMPRESSION: CONTINUED COMPLETE OPACIFICATION OF THE LEFT HEMITHORAX. RIGHT- SIDED CHEST TUBE DESCRIBED WITH NO PNEUMOTHORAX. Assessment & Plan - Diagnosis (1) Acute respiratory failure with hypoxia Is this a current diagnosis for this admission?: Yes Plan: Currently heavily BiPAP dependent, but today was able to come off BiPAP to nasal cannula for a few hours before having to go back on BiPAP. Appears to have mucous plugging of the left main bronchus with left lung collapse on chest x- ray. Apparently family and patient had previously stated they do not want anything invasive, including endotracheal intubation or bronchoscopy. In addition to antibiotics and bronchodilators and oxygen support, we have also got Mucomyst nebulizer treatments were giving her, but they do not seem to be having much of an effect at this point. Chest x-ray looks unchanged, but she did have some slight improvement in her breath sounds on the left. We will continue the current treatments for now. (2) Adenocarcinoma of right lung Is this a current diagnosis for this admission?: Yes Plan: will follow-up with oncology as an outpatient (3) HCAP (healthcare-associated pneumonia) Is this a current diagnosis for this admission?: Yes Plan: Continue current antibiotic coverage, consider de-escalation soon. (4) Pneumothorax after biopsy Is this a current diagnosis for this admission?: Yes Plan: She currently has her second chest tube in place, will likely not have this removed until she is off BiPAP completely. - Time Time Spent with patient: 25-34 minutes
[2018-11-17] MEDS: TRAZODONE HCL 50 MG TABLET PO SCH (21:34)
[2018-11-17] MEDS: MONTELUKAST SODIUM 10 MG TABLET PO SCH (21:34)
[2018-11-17] MEDS: FAMOTIDINE 20 MG TABLET PO SCH (21:34)
[2018-11-17] MEDS: ESCITALOPRAM OXALATE 10 MG TABLET PO SCH (21:34)
[2018-11-17] MEDS: ATORVASTATIN CALCIUM 40 MG TABLET PO SCH (21:36)
[2018-11-17] MEDS: INSULIN GLARGINE,HUM.REC.ANLOG 300 UNIT/3 ML INSULN.PEN SUBCUT SCH (21:36)
[2018-11-17] MEDS: PHARMACY COMMUNICATION ORDER MC SCH (21:37)
[2018-11-18] MEDS: PIPERACILLIN SODIUM/TAZOBACTAM 3.375 GM in NORMAL SALINE 100 ML IV SCH ×4 (00:22→17:57)
[2018-11-18] MEDS: LEVALBUTEROL HCL NEB 1.25 MG/3 ML AMPUL NEB PRN ×2 (02:15→13:43)
[2018-11-18] MEDS: ACETYLCYSTEINE 10% NEB 400 MG/4 ML VIAL NEB SCH ×4 (02:15→20:03)
[2018-11-18] MEDS: HEPARIN SOD (PORCINE) 5,000 UNIT/ML 1 ML SYRINGE SUBCUT SCH ×3 (05:07→22:52)
[2018-11-18] MEDS: LEVOTHYROXINE SODIUM 0.05 MG TABLET PO SCH (05:08)
[2018-11-18] MEDS: IPRATROPIUM/ALBUTEROL 0.5-2.5 MG/3 ML AMPUL NEB SCH ×2 (08:09→20:03)
[2018-11-18] MEDS: INSULIN LISPRO 100 UNIT/ML 3 ML VIAL SUBCUT SCH ×4 (08:58→22:52)
[2018-11-18] MEDS: NORMAL SALINE 1000 ML 1,000 ML IV PRN ×2 (09:16→17:57)
[2018-11-18] MEDS: VANCOMYCIN HCL 1,500 MG in DEXTROSE 5%-WATER 250 ML IV SCH (09:18)
[2018-11-18] MEDS: POTASSIUM CHLORIDE 10 MEQ CAPSULE.ER PO SCH (09:19)
[2018-11-18] MEDS: ROFLUMILAST 500 MCG TABLET PO SCH (09:20)
[2018-11-18] MEDS: DRONEDARONE HYDROCHLORIDE 400 MG TABLET PO SCH ×2 (09:21→22:53)
[2018-11-18] MEDS: CALCIUM CARBONATE 250 MG/VITAMIN D3 125 UNIT TABLET PO SCH ×2 (09:21→22:53)
[2018-11-18] MEDS: GUAIFENESIN 600 MG TABLET.SA PO SCH ×2 (09:21→22:53)
[2018-11-18] MEDS: FUROSEMIDE 20 MG TABLET PO SCH (09:21)
[2018-11-18] MEDS: DOCUSATE SODIUM 100 MG CAPSULE PO SCH ×2 (09:22→17:58)
[2018-11-18] MEDS: LIDOCAINE 5% (700 MG) TRANSDERMAL ADH..PATCH TP SCH (09:22)
[2018-11-18] MEDS: MORPHINE SULFATE 10 MG/ML INJ IV PRN (12:29)
[2018-11-18 16:49] LABS: HEMATOCRIT 33.4 % (36.0-47.0); HEMOGLOBIN 10.9 g/dL (12.0-15.5); MEAN CORPUSCULAR HGB CONC 32.7 g/dL (32.0-36.0); MEAN CORPUSCULAR VOLUME 80 fl (80-97); PLATELET COUNT 309 10^3/uL (150-450); WHITE BLOOD COUNT 8.3 10^3/uL (4.0-10.5)
--- NOTE | 2018-11-18 20:11 | PDOC PROGRESS REPORT ---
Subjective Progress Note for:: 11/18/18 Subjective:: No adverse events overnight. Clinical condition remains essentially unchanged. She has spent periods off and then back on BiPAP. She was off again for a few hours this morning. She is back on BiPAP by the time I saw her. She is physically unable to provide me with much information today. Reason For Visit: PNEUMOTHORAX Physical Exam Vital Signs: Temp Pulse Resp BP Pulse Ox 97.5 F 60 17 129/51 H 98 11/18/18 11:36 11/18/18 19:00 11/18/18 16:44 11/18/18 16:18 11/18/18 16:44 Pulse Oximeter Continuous Start: 11/04/18 14:10 Freq: RTQ4 Status: Hold Protocol: Document 11/07/18 04:15 CBR (Rec: 11/07/18 04:36 CBR [id number]) Pulse Oximetry Assessment Oxygen Saturation (92-100) 85 Oxygen Flow Rate (L/min) 3 Oxygen Delivery Method Nasal Cannula Fraction of Inspired Oxygen (FIO2) 32 Equipment Usage Equipment in Use Continuous SpO2 Machine # 2 Intake & Output 11/17/18 11/18/18 11/19/18 06:59 06:59 06:59 Intake Total 3090 3854 1600 Output Total 2775 2687 1100 Balance 315 1167 500 Weight 69.2 kg 66.2 kg General appearance: PRESENT: mild distress, well-developed, well-nourished Neck exam: ABSENT: carotid bruit, JVD, lymphadenopathy, thyromegaly Respiratory exam: PRESENT: decreased breath sounds - left side, rhonchi. ABSENT: rales, wheezes Cardiovascular: RRR Pulses: PRESENT: normal dorsalis pedis pulse GI/Abdominal exam: PRESENT: normal bowel sounds, soft. ABSENT: distended, guarding, mass, organolmegaly, rebound, tenderness Neurological exam: PRESENT: awake, altered. ABSENT: oriented to place, oriented to time, oriented to situation Results Laboratory Results: 11/18/18 16:30 11/17/18 09:36 11/18/18 16:30 WBC 8.3 RBC 4.20 Hgb 10.9 L Hct 33.4 L MCV 80 MCH 26.0 L MCHC 32.7 RDW 17.0 H Plt Count 309 Impressions: Chest CT 11/12/18 10:15 IMPRESSION: Diffuse left lung consolidation worrisome for pneumonia. Small left pleural effusion. Findings have progressed compared to previous studies. Chest X-Ray 11/17/18 00:00 IMPRESSION: CONTINUED COMPLETE OPACIFICATION OF THE LEFT HEMITHORAX. RIGHT- SIDED CHEST TUBE DESCRIBED WITH NO PNEUMOTHORAX. Assessment & Plan - Diagnosis (1) Acute respiratory failure with hypoxia Is this a current diagnosis for this admission?: Yes Plan: Currently heavily BiPAP dependent, but today was able to come off BiPAP to nasal cannula for a few hours before having to go back on BiPAP. Appears to have m ucous plugging of the left main bronchus with left lung collapse on chest x-ray. Apparently family and patient had previously stated they do not want anything invasive, including endotracheal intubation or bronchoscopy. In addition to antibiotics and bronchodilators and oxygen support, we have also got Mucomyst nebulizer treatments were giving her, but they do not seem to be having much of an effect at this point. Chest x-ray looks unchanged. We will continue the current treatments for now. At some point, if the family wants to keep going, we may have to consider some alternative form of feeding such as TPN. (2) Adenocarcinoma of right lung Is this a current diagnosis for this admission?: Yes Plan: will follow-up with oncology as an outpatient (3) HCAP (healthcare-associated pneumonia) Is this a current diagnosis for this admission?: Yes Plan: We will discontinue antibiotics because I do not know how much of an effect they are having at this point. (4) Pneumothorax after biopsy Is this a current diagnosis for this admission?: Yes Plan: She currently has her second chest tube in place, will likely not have this removed until she is off BiPAP completely. - Time Time Spent with patient: 25-34 minutes
[2018-11-18] MEDS: INSULIN GLARGINE,HUM.REC.ANLOG 300 UNIT/3 ML INSULN.PEN SUBCUT SCH (22:52)
[2018-11-18] MEDS: ATORVASTATIN CALCIUM 40 MG TABLET PO SCH (22:53)
[2018-11-18] MEDS: PHARMACY COMMUNICATION ORDER MC SCH (22:53)
[2018-11-18] MEDS: FAMOTIDINE 20 MG TABLET PO SCH (22:53)
[2018-11-18] MEDS: TRAZODONE HCL 50 MG TABLET PO SCH (22:53)
[2018-11-18] MEDS: ESCITALOPRAM OXALATE 10 MG TABLET PO SCH (22:53)
[2018-11-18] MEDS: MONTELUKAST SODIUM 10 MG TABLET PO SCH (22:53)
[2018-11-19] MEDS: LEVALBUTEROL HCL NEB 1.25 MG/3 ML AMPUL NEB PRN ×2 (01:49→14:22)
[2018-11-19] MEDS: ACETYLCYSTEINE 10% NEB 400 MG/4 ML VIAL NEB SCH ×4 (01:49→20:21)
[2018-11-19] MEDS: NORMAL SALINE 1000 ML 1,000 ML IV PRN ×3 (03:04→20:15)
[2018-11-19] MEDS: LEVOTHYROXINE SODIUM 0.05 MG TABLET PO SCH (05:42)
[2018-11-19] MEDS: HEPARIN SOD (PORCINE) 5,000 UNIT/ML 1 ML SYRINGE SUBCUT SCH ×3 (05:42→22:07)
[2018-11-19] MEDS: INSULIN LISPRO 100 UNIT/ML 3 ML VIAL SUBCUT SCH ×4 (08:07→22:07)
[2018-11-19] MEDS: FUROSEMIDE 20 MG TABLET PO SCH (08:08)
[2018-11-19] MEDS: IPRATROPIUM/ALBUTEROL 0.5-2.5 MG/3 ML AMPUL NEB SCH ×2 (08:24→20:21)
[2018-11-19] MEDS: POTASSIUM CHLORIDE 10 MEQ CAPSULE.ER PO SCH (12:06)
[2018-11-19] MEDS: DOCUSATE SODIUM 100 MG CAPSULE PO SCH ×2 (12:06→17:16)
[2018-11-19] MEDS: LIDOCAINE 5% (700 MG) TRANSDERMAL ADH..PATCH TP SCH (12:06)
[2018-11-19] MEDS: DRONEDARONE HYDROCHLORIDE 400 MG TABLET PO SCH ×2 (12:06→22:07)
[2018-11-19] MEDS: ROFLUMILAST 500 MCG TABLET PO SCH (12:06)
[2018-11-19] MEDS: CALCIUM CARBONATE 250 MG/VITAMIN D3 125 UNIT TABLET PO SCH ×2 (12:06→22:07)
[2018-11-19] MEDS: GUAIFENESIN 600 MG TABLET.SA PO SCH ×2 (12:07→22:08)
[2018-11-19] MEDS: INSULIN GLARGINE,HUM.REC.ANLOG 300 UNIT/3 ML INSULN.PEN SUBCUT SCH (22:06)
[2018-11-19] MEDS: ATORVASTATIN CALCIUM 40 MG TABLET PO SCH (22:07)
[2018-11-19] MEDS: ESCITALOPRAM OXALATE 10 MG TABLET PO SCH (22:07)
[2018-11-19] MEDS: MONTELUKAST SODIUM 10 MG TABLET PO SCH (22:07)
[2018-11-19] MEDS: FAMOTIDINE 20 MG TABLET PO SCH (22:07)
[2018-11-19] MEDS: TRAZODONE HCL 50 MG TABLET PO SCH (22:07)
[2018-11-19] MEDS: PHARMACY COMMUNICATION ORDER MC SCH (22:08)
[2018-11-20] MEDS: PHARMACY COMMUNICATION ORDER MC SCH ×2 (00:20→22:34)
[2018-11-20] MEDS: LEVALBUTEROL HCL NEB 1.25 MG/3 ML AMPUL NEB PRN ×2 (02:27→13:41)
[2018-11-20] MEDS: ACETYLCYSTEINE 10% NEB 400 MG/4 ML VIAL NEB SCH ×4 (02:27→21:02)
[2018-11-20] MEDS: HEPARIN SOD (PORCINE) 5,000 UNIT/ML 1 ML SYRINGE SUBCUT SCH ×3 (05:15→22:33)
[2018-11-20] MEDS: LEVOTHYROXINE SODIUM 0.05 MG TABLET PO SCH (05:15)
[2018-11-20] MEDS: NORMAL SALINE 1000 ML 1,000 ML IV PRN ×3 (05:15→20:52)
[2018-11-20] MEDS: FUROSEMIDE 20 MG TABLET PO SCH (08:05)
[2018-11-20] MEDS: INSULIN LISPRO 100 UNIT/ML 3 ML VIAL SUBCUT SCH ×4 (08:05→22:33)
[2018-11-20] MEDS: IPRATROPIUM/ALBUTEROL 0.5-2.5 MG/3 ML AMPUL NEB SCH ×2 (09:09→21:01)
[2018-11-20] MEDS: POTASSIUM CHLORIDE 10 MEQ CAPSULE.ER PO SCH (09:49)
[2018-11-20] MEDS: DRONEDARONE HYDROCHLORIDE 400 MG TABLET PO SCH ×2 (09:50→22:33)
[2018-11-20] MEDS: DOCUSATE SODIUM 100 MG CAPSULE PO SCH ×2 (09:50→18:28)
[2018-11-20] MEDS: CALCIUM CARBONATE 250 MG/VITAMIN D3 125 UNIT TABLET PO SCH ×2 (09:50→22:32)
[2018-11-20] MEDS: GUAIFENESIN 600 MG TABLET.SA PO SCH ×2 (09:51→22:33)
[2018-11-20] MEDS: ROFLUMILAST 500 MCG TABLET PO SCH (09:51)
[2018-11-20] MEDS: LIDOCAINE 5% (700 MG) TRANSDERMAL ADH..PATCH TP SCH (09:52)
[2018-11-20] MEDS: ACETAMINOPHEN 325 MG TABLET PO PRN (14:07)
--- NOTE | 2018-11-20 15:54 | RADIOLOGY REPORT (SQ) ---
EXAM DESCRIPTION: CHEST SINGLE VIEW COMPLETED DATE/TIME: 11/20/2018 3:14 pm REASON FOR STUDY: Pneumothorax, chest tube COMPARISON: Multiple previous chest films since 11/04/2018 CT chest 11/07/2018, 11/12/2018 EXAM PARAMETERS: NUMBER OF VIEWS: One view. TECHNIQUE: Single frontal radiographic view of the chest acquired. RADIATION DOSE: NA LIMITATIONS: None. FINDINGS: LUNGS AND PLEURA: Dense consolidation throughout the left lung. On the right side, large bore chest tube is present without pneumothorax. Previously biopsied malign ant nodule in the right upper lobe is difficult to visualize by plain film. No right pleural effusio n. MEDIASTINUM AND HILAR STRUCTURES: No masses. Contour normal. HEART AND VASCULAR STRUCTURES: Not well seen due to left lung collapse/consolidation BONES: No acute findings. HARDWARE: Right large bore chest tube OTHER: No other significant finding. IMPRESSION: No change from yesterday TECHNICAL DOCUMENTATION: JOB ID: [id number] [employer]- All Rights Reserved Reading location - IP/workstation name: [email or web address]
--- NOTE | 2018-11-20 22:00 | PDOC PROGRESS REPORT ---
Subjective Progress Note for:: 11/19/18 Subjective:: Patient with BiPAP in place. Patient's daughter present. Reason For Visit: PNEUMOTHORAX Physical Exam Vital Signs: Temp Pulse Resp BP Pulse Ox 97.3 F 72 15 134/62 H 100 11/19/18 12:06 11/19/18 12:06 11/19/18 12:06 11/19/18 12:06 11/19/18 12:06 Pulse Oximeter Continuous Start: 11/04/18 14:10 Freq: RTQ4 Status: Hold Protocol: Document 11/07/18 04:15 CBR (Rec: 11/07/18 04:36 CBR [id number]) Pulse Oximetry Assessment Oxygen Saturation (92-100) 85 Oxygen Flow Rate (L/min) 3 Oxygen Delivery Method Nasal Cannula Fraction of Inspired Oxygen (FIO2) 32 Equipment Usage Equipment in Use Continuous SpO2 Machine # 2 Intake & Output 11/18/18 11/19/18 11/20/18 06:59 06:59 06:59 Intake Total 3854 3000 1000 Output Total 2687 2758 Balance 4386 568 3465 Weight 66.2 kg 69 kg General appearance: PRESENT: no acute distress, well-developed, other - On BiPAP so difficult to comprehend Head exam: PRESENT: normocephalic Respiratory exam: PRESENT: decreased breath sounds - Left, symmetrical. ABSENT: accessory muscle use, wheezes Cardiovascular exam: PRESENT: RRR, +S1, +S2, systolic murmur - 2/6 GI/Abdominal exam: PRESENT: normal bowel sounds, soft. ABSENT: distended, tenderness Rectal exam: PRESENT: deferred Extremities exam: ABSENT: pedal edema Neurological exam: PRESENT: alert, awake, oriented to person, oriented to place, oriented to situation Psychiatric exam: PRESENT: flat affect. ABSENT: agitated, anxious Focused psych exam: ABSENT: delusional, restlessness Results Laboratory Results: 11/18/18 16:30 11/17/18 09:36 11/18/18 16:30 WBC 8.3 RBC 4.20 Hgb 10.9 L Hct 33.4 L MCV 80 MCH 26.0 L MCHC 32.7 RDW 17.0 H Plt Count 309 Impressions: Chest CT 11/12/18 10:15 IMPRESSION: Diffuse left lung consolidation worrisome for pneumonia. Small left pleural effusion. Findings have progressed compared to previous studies. Chest X-Ray 11/17/18 00:00 IMPRESSION: CONTINUED COMPLETE OPACIFICATION OF THE LEFT HEMITHORAX. RIGHT- SIDED CHEST TUBE DESCRIBED WITH NO PNEUMOTHORAX. Assessment & Plan - Diagnosis (1) Acute respiratory failure with hypoxia Is this a current diagnosis for this admission?: Yes Plan: Still requires BiPAP multiple times during the day. Left lung with dense consolidation. (2) Pneumothorax after biopsy Is this a current diagnosis for this admission?: Yes Plan: Limited output from chest tube. (3) Adenocarcinoma of right lung Is this a current diagnosis for this admission?: Yes Plan: No treatment plan at this time. Patient needs to recover from his current episode before consideration of treatment. (4) Diabetes Qualifiers: Diabetes mellitus type: type 2 Diabetes mellitus mcfp insulin use: with mcfp use Diabetes mellitus complication status: with hypoglycemia Diabetes mellitus complication detail: without coma Qualified Code(s): E11.649 - Type 2 diabetes mellitus with hypoglycemia without coma; Z79.4 - assisted (current) use of insulin Is this a current diagnosis for this admission?: Yes Plan: Continue Lantus and sliding scale (5) Hypothyroidism Qualifiers: Hypothyroidism type: unspecified Qualified Code(s): E03.9 - Hypothyroidism, unspecified Is this a current diagnosis for this admission?: Yes Plan: Continue levothyroxine (6) Atrial fibrillation Qualifiers: Atrial fibrillation type: chronic Qualified Code(s): I48.2 - Chronic atrial fibrillation Is this a current diagnosis for this admission?: Yes Plan: Stable on dronedarone. No chronic anticoagulation yet. - Time Time Spent with patient: 25-34 minutes Medications reviewed and adjusted accordingly: Yes - Plan Summary Plan Summary: The patient's daughter is at the bedside. She feels that there is noticeable improvement with the patient. Objectively I do not feel that there is the improvement that her daughter appreciates.
--- NOTE | 2018-11-20 22:04 | PDOC PROGRESS REPORT ---
Subjective Progress Note for:: 11/20/18 Subjective:: The patient was just placed back on BiPAP. Reason For Visit: PNEUMOTHORAX Physical Exam Vital Signs: Temp Pulse Resp BP Pulse Ox 97.8 F 71 19 124/52 L 99 11/20/18 11:54 11/20/18 13:43 11/20/18 13:41 11/20/18 11:54 11/20/18 13:41 Pulse Oximeter Continuous Start: 11/04/18 14:10 Freq: RTQ4 Status: Hold Protocol: Document 11/07/18 04:15 CBR (Rec: 11/07/18 04:36 CBR [id number]) Pulse Oximetry Assessment Oxygen Saturation (92-100) 85 Oxygen Flow Rate (L/min) 3 Oxygen Delivery Method Nasal Cannula Fraction of Inspired Oxygen (FIO2) 32 Equipment Usage Equipment in Use Continuous SpO2 Machine # 2 Intake & Output 11/19/18 11/20/18 11/21/18 06:59 06:59 06:59 Intake Total 3000 3511 1054 Output Total 2758 3121 1500 Balance 242 390 -446 Weight 69 kg 69.8 kg General appearance: PRESENT: mild distress, well-developed - But frail-appearing 83-year-old female Head exam: PRESENT: normocephalic Respiratory exam: PRESENT: decreased breath sounds - Especially on the left, symmetrical. ABSENT: accessory muscle use, rales, rhonchi, wheezes Cardiovascular exam: PRESENT: RRR, +S1, +S2, systolic murmur - 2/6 GI/Abdominal exam: PRESENT: normal bowel sounds, soft. ABSENT: distended, tenderness Rectal exam: PRESENT: deferred Extremities exam: ABSENT: pedal edema Neurological exam: PRESENT: alert, awake, oriented to person, oriented to place, oriented to situation Psychiatric exam: PRESENT: appropriate affect. ABSENT: agitated, anxious Results Laboratory Results: 11/18/18 16:30 11/17/18 09:36 Impressions: Chest CT 11/12/18 10:15 IMPRESSION: Diffuse left lung consolidation worrisome for pneumonia. Small left pleural effusion. Findings have progressed compared to previous studies. Chest X-Ray 11/17/18 00:00 IMPRESSION: CONTINUED COMPLETE OPACIFICATION OF THE LEFT HEMITHORAX. RIGHT- SIDED CHEST TUBE DESCRIBED WITH NO PNEUMOTHORAX. Assessment & Plan - Diagnosis (1) Acute respiratory failure with hypoxia Is this a current diagnosis for this admission?: Yes Plan: Still requiring significant amount of BiPAP. Chest x-ray reveals dense consolidation on the left that is not changed. I will discuss with Dr. Guerin and asked him to reassess the patient. (2) Pneumothorax after biopsy Is this a current diagnosis for this admission?: Yes Plan: We will trial clamping the chest tube. The patient has not had significant output. (3) Adenocarcinoma of right lung Is this a current diagnosis for this admission?: Yes Plan: No treatment plan at this time. Patient needs to recover from his current episode before consideration of treatment. (4) Diabetes Qualifiers: Diabetes mellitus type: type 2 Diabetes mellitus long wall mining machine helper insulin use: with long wall mining machine helper use Diabetes mellitus complication status: with hypoglycemia Diabetes mellitus complication detail: without coma Qualified Code(s): E11.649 - Type 2 diabetes mellitus with hypoglycemia without coma; Z79.4 - intermediate (cu rrent) use of insulin Is this a current diagnosis for this admission?: Yes Plan: Continue Lantus and sliding scale (5) Hypothyroidism Qualifiers: Hypothyroidism type: unspecified Qualified Code(s): E03.9 - Hypothyroidism, unspecified Is this a current diagnosis for this admission?: Yes Plan: Continue levothyroxine (6) Atrial fibrillation Qualifiers: Atrial fibrillation type: chronic Qualified Code(s): I48.2 - Chronic atrial fibrillation Is this a current diagnosis for this admission?: Yes Plan: Stable on dronedarone. No chronic anticoagulation yet. - Time Time Spent with patient: 15-24 minutes Medications reviewed and adjusted accordingly: Yes
[2018-11-20] MEDS: TRAZODONE HCL 50 MG TABLET PO SCH (22:32)
[2018-11-20] MEDS: MONTELUKAST SODIUM 10 MG TABLET PO SCH (22:33)
[2018-11-20] MEDS: FAMOTIDINE 20 MG TABLET PO SCH (22:33)
[2018-11-20] MEDS: ATORVASTATIN CALCIUM 40 MG TABLET PO SCH (22:33)
[2018-11-20] MEDS: INSULIN GLARGINE,HUM.REC.ANLOG 300 UNIT/3 ML INSULN.PEN SUBCUT SCH (22:33)
[2018-11-20] MEDS: ESCITALOPRAM OXALATE 10 MG TABLET PO SCH (22:33)
[2018-11-21 05:47] LABS: ABSOLUTE EOSINOPHILS # (AUTO) 0.1 10^3/uL (0.0-0.6); ABSOLUTE LYMPHOCYTES (AUTO) 0.7 10^3/uL (0.5-4.7); ABSOLUTE MONOCYTES (AUTO) 0.8 10^3/uL (0.1-1.4); ABSOLUTE NEUT (AUTO) 4.1 10^3/uL (1.7-8.2); BASOPHILS % (AUTO) 0.6 % (0-2); EOSINOPHILS % (AUTO) 1.8 % (0-6); HEMATOCRIT 30.8 % (36.0-47.0); HEMOGLOBIN 10.3 g/dL (12.0-15.5); LYMPHOCYTES % (AUTO) 12.4 % (13-45); MEAN CORPUSCULAR HEMOGLOBIN 26.2 pg (27.0-33.4); MEAN CORPUSCULAR HGB CONC 33.4 g/dL (32.0-36.0); MEAN CORPUSCULAR VOLUME 79 fl (80-97); MONOCYTES % (AUTO) 13.8 % (3-13); PLATELET COUNT 267 10^3/uL (150-450); RED BLOOD COUNT 3.92 10^6/uL (3.72-5.28); SEGMENTED NEUTROPHILS % (AUTO) 71.4 % (42-78); TOTAL CELLS COUNTED % (AUTO) 100 %; WHITE BLOOD COUNT 5.8 10^3/uL (4.0-10.5)
[2018-11-21] MEDS: LEVOTHYROXINE SODIUM 0.05 MG TABLET PO SCH (05:54)
[2018-11-21] MEDS: NORMAL SALINE 1000 ML 1,000 ML IV PRN (05:54)
[2018-11-21] MEDS: HEPARIN SOD (PORCINE) 5,000 UNIT/ML 1 ML SYRINGE SUBCUT SCH (05:54)
[2018-11-21 06:10] LABS: BLOOD UREA NITROGEN 7 mg/dL (7-20); CALCIUM 8.4 mg/dL (8.4-10.2); GLUCOSE 107 mg/dL (75-110)
[2018-11-21 06:34] LABS: CHLORIDE 99 mmol/L (98-107)
[2018-11-21 07:38] LABS: ANION GAP 0 (5-19); CARBON DIOXIDE 43 mmol/L (22-30); POTASSIUM 2.8 mmol/L (3.6-5.0)
[2018-11-21] MEDS: IPRATROPIUM/ALBUTEROL 0.5-2.5 MG/3 ML AMPUL NEB SCH (08:40)
[2018-11-21] MEDS: INSULIN LISPRO 100 UNIT/ML 3 ML VIAL SUBCUT SCH (09:30)
[2018-11-21] MEDS: GUAIFENESIN 600 MG TABLET.SA PO SCH (09:46)
[2018-11-21] MEDS: CALCIUM CARBONATE 250 MG/VITAMIN D3 125 UNIT TABLET PO SCH (09:46)
[2018-11-21] MEDS: ROFLUMILAST 500 MCG TABLET PO SCH (09:46)
[2018-11-21] MEDS: DOCUSATE SODIUM 100 MG CAPSULE PO SCH (09:46)
[2018-11-21] MEDS: POTASSIUM CHLORIDE 20 MEQ/50 ML RTU IV SCH ×2 (09:46→12:44)
[2018-11-21] MEDS: DRONEDARONE HYDROCHLORIDE 400 MG TABLET PO SCH (09:47)
[2018-11-21] MEDS: POTASSIUM CHLORIDE 10 MEQ CAPSULE.ER PO SCH (09:47)
[2018-11-21] MEDS: FUROSEMIDE 20 MG TABLET PO SCH (09:47)
[2018-11-21] MEDS: LIDOCAINE 5% (700 MG) TRANSDERMAL ADH..PATCH TP SCH (09:52)
[2018-11-21] MEDS ORDERED: FUROSEMIDE INJ/PF 20 MG/2 ML SDV IV ONE (10:00)
[2018-11-21] MEDS ORDERED: MORPHINE SULFATE 10 MG/ML INJ IV ONE (11:59)
[2018-11-21] MEDS ORDERED: MORPHINE SULFATE 10 MG/ML INJ IV PRN (11:59)
[2018-11-21] MEDS ORDERED: LORAZEPAM INJ 2 MG/1 ML VIAL IV ONE (12:01)
[2018-11-21] MEDS ORDERED: MORPHINE SULFATE 10 MG/ML INJ ONE (12:09)
[2018-11-21] MEDS ORDERED: LORAZEPAM INJ 2 MG/1 ML VIAL ONE (12:10)
[2018-11-21] MEDS ORDERED: ACETAMINOPHEN 650 MG SUPP.RECT PR PRN (12:12)
--- NOTE | 2018-11-21 12:20 | PDOC PROGRESS REPORT ---
Subjective Progress Note for:: 11/21/18 Subjective:: Doing poorly. Dyspnea despite BiPAP. Reason For Visit: PNEUMOTHORAX Physical Exam Vital Signs: Temp Pulse Resp BP Pulse Ox 97.8 F 70 22 H 141/60 H 97 11/21/18 07:27 11/21/18 08:40 11/21/18 08:40 11/21/18 07:27 11/21/18 08:40 Pulse Oximeter Continuous Start: 11/04/18 14:10 Freq: RTQ4 Status: Hold Protocol: Document 11/07/18 04:15 CBR (Rec: 11/07/18 04:36 CBR [id number]) Pulse Oximetry Assessment Oxygen Saturation (92-100) 85 Oxygen Flow Rate (L/min) 3 Oxygen Delivery Method Nasal Cannula Fraction of Inspired Oxygen (FIO2) 32 Equipment Usage Equipment in Use Continuous SpO2 Machine # 2 Intake & Output 11/20/18 11/21/18 11/22/18 06:59 06:59 06:59 Intake Total 3511 3152 Output Total 3121 3800 Balance 390 -648 Weight 69.8 kg 68.1 kg General appearance: PRESENT: severe distress Respiratory exam: PRESENT: accessory muscle use, decreased breath sounds - On the left, rales - On the right Cardiovascular exam: PRESENT: RRR, +S1, +S2, other - Difficult to hear due to congested breath sounds. GI/Abdominal exam: PRESENT: normal bowel sounds, soft. ABSENT: tenderness Rectal exam: PRESENT: deferred Extremities exam: ABSENT: pedal edema Neurological exam: PRESENT: altered - Seems somewhat confused this morning. Giv en her respiratory status it is likely hypercapnia. Psychiatric exam: PRESENT: anxious Results Laboratory Results: 11/21/18 05:14 11/21/18 05:14 11/21/18 11/21/18 05:14 05:14 WBC 5.8 RBC 3.92 Hgb 10.3 L Hct 30.8 L MCV 79 L MCH 26.2 L MCHC 33.4 RDW 17.0 H Plt Count 267 Seg Neutrophils % 71.4 Lymphocytes % 12.4 L Monocytes % 13.8 H Eosinophils % 1.8 Basophils % 0.6 Absolute Neutrophils 4.1 Absolute Lymphocytes 0.7 Absolute Monocytes 0.8 Absolute Eosinophils 0.1 Absolute Basophils 0.0 Sodium 142.0 Potassium 2.8 L* Chloride 99 Carbon Dioxide 43 H* Anion Gap 0 L BUN 7 Creatinine 0.66 Est GFR ( Amer) > 60 Est GFR (Non-Af Amer) > 60 Glucose 107 Calcium 8.4 Impressions: Chest CT 11/12/18 10:15 IMPRESSION: Diffuse left lung consolidation worrisome for pneumonia. Small left pleural effusion. Findings have progressed compared to previous studies. Chest X-Ray 11/20/18 00:00 IMPRESSION: No change from yesterday Assessment & Plan - Diagnosis (1) Acute respiratory failure with hypoxia Is this a current diagnosis for this admission?: Yes Plan: The patient has mucous plugging with consolidation of the left lung. Right lung is expanded but still having drainage from the chest tube. Very congested br eath sounds. Despite BiPAP she is dyspneic and struggling. (2) Pneumothorax after biopsy Is this a current diagnosis for this admission?: Yes Plan: Chest tube back on suction (3) Adenocarcinoma of right lung Is this a current diagnosis for this admission?: Yes Plan: Confirmed by biopsy (4) Diabetes Qualifiers: Diabetes mellitus type: type 2 Diabetes mellitus prison insulin use: with prison use Diabetes mellitus complication status: with hypoglycemia Diabetes mellitus complication detail: without coma Qualified Code(s): E11.649 - Type 2 diabetes mellitus with hypoglycemia without coma; Z79.4 - skilled nursing (current) use of insulin Is this a current diagnosis for this admission?: Yes Plan: Continue Lantus and sliding scale (5) Hypothyroidism Qualifiers: Hypothyroidism type: unspecified Qualified Code(s): E03.9 - Hypothyroidism, unspecified Is this a current diagnosis for this admission?: Yes Plan: Continue levothyroxine (6) Atrial fibrillation Qualifiers: Atrial fibrillation type: chronic Qualified Code(s): I48.2 - Chronic atrial fibrillation Is this a current diagnosis for this admission?: Yes Plan: Stable on dronedarone. She is in fact in sinus rhythm. No chronic anticoagu lation. (7) Need for comfort care Is this a current diagnosis for this admission?: Yes Plan: Please also see advance care planning note. I had a discussion with the patient's daughters as well as her niece. Family members present as well as the daughter relating that all family members are currently in agreement with the plan for comfort care only. - Time Time Spent with patient: 15-24 minutes Medications reviewed and adjusted accordingly: Yes Anticipated discharge: Other - Comfort care. Life expectancy less than 48 hours.
--- NOTE | 2018-11-21 12:28 | Progress Note ---
Provider Note Provider Note: Advance care planning: The patient is doing poorly today. 2 over daughters as well as a niece were present at the bedside. In fact brought them to the nurses station and showed them the patient's current chest x-ray. I explained that the only way to treat this would be bronchoscopy. After discussions with pulmonology bronchoscopy would certainly lend her back on the ventilator. There is no guarantee that it would help significantly. In light of her comorbidities and failure to improve, despite aggressive regimen, the family is in complete agreement with comfort care measures only. Putting her through bronchoscopy with certain intubation and ventilation, without likelihood of coming off the vent, is not what the family, or in fact the patient, would desire. I tried to explain this to the patient but she was somewhat confused as noted above. I would not be surprised if her PCO2 was up because of her respiratory difficulties. With this in mind I have discontinued all of her medications except IV morphine, IV lorazepam and acetaminophen. I believe her life expectancy will be 48 hours or less. A total of 40 minutes was spent on the multiple discussions including coordinating with the bank teller and reviewing clinical data with the family.
[2018-11-21] MEDS: MORPHINE SULFATE 10 MG/ML INJ IV PRN ×4 (13:42→21:38)
[2018-11-21] MEDS: LORAZEPAM INJ 2 MG/1 ML VIAL IV PRN ×3 (13:43→18:59)
[2018-11-21 21:00] VITALS: BP 60/31
--- NOTE | 2018-11-22 19:15 | Death Summary ---
Summary Date : 11/22/18 Time of :: 00:25 Autopsy: No Resuscitation Status: Comfort Measures Only - Final Diagnosis (1) Acute respiratory failure with hypoxia Is this a current diagnosis for this admission?: Yes (2) Pneumothorax after biopsy Is this a current diagnosis for this admission?: Yes (3) Adenocarcinoma of right lung Is this a current diagnosis for this admission?: Yes (4) Diabetes Is this a current diagnosis for this admission?: Yes (5) Hypothyroidism Is this a current diagnosis for this admission?: Yes (6) Atrial fibrillation Is this a current diagnosis for this admission?: Yes (7) Need for comfort care Is this a current diagnosis for this admission?: Yes Hospital Course:: This very pleasant but unfortunate 83-year-old female was admitted to the hospital after developing a pneumothorax during a CT-guided lung biopsy. A chest tube was subsequently placed. The initial removal of the chest tube was unremarkable however within hours the patient developed a pneumothorax again. A chest tube was placed again and the patient required intubation and mechanical ventilation. We were able to wean the patient from the ventilator but she required BiPAP consistently. The biopsy proved positive for adenocarcinoma. The patient developed mucous plugging in the left lung. She had become extremely deconditioned. With each passing day her prognosis appeared to be worsening. After multiple discussions with the patient's family it was agreed upon that with no reasonable recovery insight that the patient would in fact be comfort measures only. With that in mind the patient was placed on comfort care yesterday. All medications except morphine, lorazepam and Tylenol were discontinued. Her BiPAP was discontinued. Nursing reports that she was quite comfortable. She at 12:23 AM November 22, 2018. Dr. Pierce completed the certificate.
== END 2018-11-22 01:45 | disposition expired | DRG 199 ==
LOC: ER 12:37 → EH 13:25 → INTOOBSV 13:25 → 4N 15:34 → ICU 11-07 06:52 → OBSVTOIN 11-07 10:32 → 3W 11-08 16:58
PROVIDERS: ADMIT Internal Medicine; ATTEND Internal Medicine
PROC: 0W9930Z Drainage of Right Pleural Cavity with Drainage Device, Percutaneous Approach (ICD-10-PCS; principal; 2018-11-07)
PROC: 3E0F3GC Introduction of Other Therapeutic Substance into Respiratory Tract, Percutaneous Approach (ICD-10-PCS; 2018-11-07)
PROC: 5A09357 Assistance with Respiratory Ventilation, Less than 24 Consecutive Hours, Continuous Positive Airway Pressure (ICD-10-PCS; 2018-11-12)
DX: J95.811 Postprocedural pneumothorax (principal); J96.21 Acute and chronic respiratory failure with hypoxia; J18.9 Pneumonia, unspecified organism; C34.11 Malignant neoplasm of upper lobe, right bronchus or lung; I95.9 Hypotension, unspecified; J44.9 Chronic obstructive pulmonary disease, unspecified; E11.649 Type 2 diabetes mellitus with hypoglycemia without coma; Z99.81 Dependence on supplemental oxygen; Z51.5 Encounter for palliative care; I48.2 Chronic atrial fibrillation; I50.9 Heart failure, unspecified; Y84.8 Other medical procedures as the cause of abnormal reaction of the patient, or of later complication, without mention of misadventure at the time of the procedure; Z66 Do not resuscitate; E78.5 Hyperlipidemia, unspecified; E03.9 Hypothyroidism, unspecified; F32.9 Major depressive disorder, single episode, unspecified; F41.9 Anxiety disorder, unspecified; Y92.238 Other place in hospital as the place of occurrence of the external cause; I25.10 Atherosclerotic heart disease of native coronary artery without angina pectoris; Y95 Nosocomial condition; Z87.891 Personal history of nicotine dependence; Z80.9 Family history of malignant neoplasm, unspecified; Z83.6 Family history of other diseases of the respiratory system; Z79.4 Long term (current) use of insulin
CPT/HCPCS: 32405; 36415; 71045; 71046; 71250; 71260; 77012; 80048; 80053; 80162; 80202; 81001; 82565; 82947; 82962; 83036; 83735; 84520; 85025; 85027; 85610; 85730; 87040; 88305; 88341; 88342; 93005; 93010; 94660; 94762; 94799; 99284; C1729; C1894; G0378; J1160; J1644; J1815; J2060; J2250; J2270; J2543; J3010; J3370; J3480; J3490; J7030; J7060; J7620

== ENCOUNTER → 2018-11-04 | Day surgery (SDC) | payer MEDICARE, MEDICAID ==
[~2018-11-04] MED LIST changes: -CHONDR SU A NA/HYALUR INTRAOC KIT (SURGICARE) ONE; -EPINEPHRINE INJ/PF 1 MG/1 ML AMPULE ONE; +FENTANYL CITRATE INJ/PF 100 MCG/2 ML AMPUL ONE; -KETOROLAC TROMETHAMINE 0.45% 4 DROP/0.4 ML DROPERETTE OS PRN; +LIDOCAINE 1% INJ-PF (10 MG/ML) 30 ML SDV ONE; -LIDOCAINE 1%/PHENYLEPHRINE 1.5% 1 ML VIAL ONE; +MIDAZOLAM 2 MG/2 ML INJ ONE
[2018-11-04 09:46] VITALS: BP 125/61
[2018-11-04 10:27] LABS: HEMATOCRIT 37.3 % (36.0-47.0); HEMOGLOBIN 12.1 g/dL (12.0-15.5); MEAN CORPUSCULAR HEMOGLOBIN 25.9 pg (27.0-33.4); MEAN CORPUSCULAR HGB CONC 32.4 g/dL (32.0-36.0); MEAN CORPUSCULAR VOLUME 80 fl (80-97); PLATELET COUNT 200 10^3/uL (150-450); RED BLOOD COUNT 4.66 10^6/uL (3.72-5.28); RED CELL DISTRIBUTION WIDTH 16.9 % (11.5-14.0); WHITE BLOOD COUNT 12.4 10^3/uL (4.0-10.5)
[2018-11-04 10:34] LABS: INTERNATIONAL RATION (INR) 0.94; PARTIAL THROMBOPLASTIN TIME 27.6 SEC (23.5-35.8)
[2018-11-04 10:51] LABS: BLOOD UREA NITROGEN 21 mg/dL (7-20); GLUCOSE 72 mg/dL (75-110)
--- NOTE | 2018-11-04 12:35 | RADIOLOGY REPORT (SQ) ---
EXAM DESCRIPTION: CHEST SINGLE VIEW COMPLETED DATE/TIME: 11/04/2018 12:22 pm REASON FOR STUDY: LUNG CA --POST BIOPSY COMPARISON: 12/23/2017 EXAM PARAMETERS: NUMBER OF VIEWS: One view. TECHNIQUE: Single frontal radiographic view of the chest acquired. RADIATION DOSE: NA LIMITATIONS: None. FINDINGS: LUNGS AND PLEURA: There is some faintly defined opacification in the right lung. There ap pears to be reduced volume on the left. There does not appear to be significant atelectasis in the l eft lung. MEDIASTINUM AND HILAR STRUCTURES: No masses. Contour normal. HEART AND VASCULAR STRUCTURES: Heart normal in size. Normal vasculature. BONES: No acute findings. HARDWARE: None in the chest. OTHER: No other significant finding. IMPRESSION: Cannot exclude limited infiltrate in the right upper lobe. Reduced volume the left lung of uncertain etiology. TECHNICAL DOCUMENTATION: JOB ID: [id number] 12/23/20172010 [employer]- All Rights Reserved Reading location - IP/workstation name: [email or web address]
--- NOTE | 2018-11-04 14:12 | RADIOLOGY REPORT (SQ) ---
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 Post bi opsy CT-guided chest tube placement. IV conscious sedation CT Fluoroscopy Time: 14.[address] scanners at this facility use dose modulation, iterative reconstruction, and/or weight based d osing when appropriate to reduce radiation dose to as low as reasonably achievable (ALARA). [facility]: Dose Right [facility]: CareDose [facility]: Dose Right [facility]: Teradose 4D [facility]: Smart Technologies RADIATION DOSE: mGy. FINDINGS: After obtaining informed consent and explaining the risks and benefits of conscious sedati on,the patient agreed to the procedure. Prior to the procedure, a time out was performed to verify th e patient's identity and planned procedure. IV sedation was administered and physician direction by the registered nurse using 1 milligrams of Ve rsed and 75 micrograms of fentanyl, for conscious sedation. Physiologic monitoring was provided befor e, during, and after sedation. The total sedation time was 35 minutes. Documentation face to face time, the performing proceduralist, spent monitoring the patient: [address] scanning was performed to localize the percutaneous site for the biopsy approach. After sterile skin prep and local lidocaine for skin and deep tissue anesthesia, a coaxial biopsy nee dle was used to obtain multiple cores of tissue. The biopsy tissue was submitted to the lab in formbreana arcos. Pathology is pending at the time of dictation. Post Procedure CT fluoro demonstrated a moderate-sized pneumothorax. Patient had pain on inspiration . Patient's vital signs remained stable. Aspiration of the right-sided post biopsy pneumothorax with the biopsy needle was unsuccessful. At t his point, an 8 Egyptian locking pigtail catheter was placed into the right pleural space. Catheter wa s locked into position. Gentle hand aspiration of the right pneumothorax was performed. Right chest tube was then placed to 30 cm of water suction. Patient was noted to have a small air leak. Throug hout the procedure, patient's vital signs remained stable with pulse oximetry reading 94% or greater. THE PATIENT WAS ADMITTED FOR OBSERVATION TO THE HOSPITALIST SERVICE IMPRESSION: CT GUIDED BIOPSY OF THE RIGHT UPPER LOBE MASS PERFORMED WITHOUT IMMEDIATE COMPLICATION. PATHOLOGY PENDING. POST BIOPSY RIGHT 8 TONGAN PIGTAIL CHEST TUBE PLACEMENT FOR PNEUMOTHORAX. IV CONSCIOUS SEDATION COMMENT: Quality ID [id number]: Final reports for procedures using fluoroscopy that document radiation exp osure indices, or exposure time and number of fluorographic images (if radiation exposure indices are not available) Patient medication list reviewed: Yes- Quality ID# [id number]:Eligible professional attests to documenting i n the medical record they obtained, updated, or reviewed the patient's current medications.. TECHNICAL DOCUMENTATION: JOB ID: [id number] Quality ID# [id number]: Final reports with documentation of one or more dose reduction techniques (e.g., Aut omated exposure control, adjustment of the mA and/or kV according to patient size, use of iterative r econstruction technique) 2010 [employer]- All Rights Reserved Reading location - IP/workstation name: [email or web address]
--- NOTE | 2018-11-04 14:12 | RADIOLOGY REPORT (SQ) ---
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 Post bi opsy CT-guided chest tube placement. IV conscious sedation CT Fluoroscopy Time: 14.[address] scanners at this facility use dose modulation, iterative reconstruction, and/or weight based d osing when appropriate to reduce radiation dose to as low as reasonably achievable (ALARA). [facility]: Dose Right [facility]: CareDose [facility]: Dose Right [facility]: Teradose 4D [facility]: [employer] RADIATION DOSE: mGy. FINDINGS: After obtaining informed consent and explaining the risks and benefits of conscious sedati on,the patient agreed to the procedure. Prior to the procedure, a time out was performed to verify th e patient's identity and planned procedure. IV sedation was administered and physician direction by the registered nurse using 1 milligrams of Ve rsed and 75 micrograms of fentanyl, for conscious sedation. Physiologic monitoring was provided befor e, during, and after sedation. The total sedation time was 35 minutes. Documentation face to face time, the performing proceduralist, spent monitoring the patient: [address] scanning was performed to localize the percutaneous site for the biopsy approach. After sterile skin prep and local lidocaine for skin and deep tissue anesthesia, a coaxial biopsy nee dle was used to obtain multiple cores of tissue. The biopsy tissue was submitted to the lab in formbreana arcos. Pathology is pending at the time of dictation. Post Procedure CT fluoro demonstrated a moderate-sized pneumothorax. Patient had pain on inspiration . Patient's vital signs remained stable. Aspiration of the right-sided post biopsy pneumothorax with the biopsy needle was unsuccessful. At t his point, an 8 Iranian locking pigtail catheter was placed into the right pleural space. Catheter wa s locked into position. Gentle hand aspiration of the right pneumothorax was performed. Right chest tube was then placed to 30 cm of water suction. Patient was noted to have a small air leak. Throug hout the procedure, patient's vital signs remained stable with pulse oximetry reading 94% or greater. THE PATIENT WAS ADMITTED FOR OBSERVATION TO THE HOSPITALIST SERVICE IMPRESSION: CT GUIDED BIOPSY OF THE RIGHT UPPER LOBE MASS PERFORMED WITHOUT IMMEDIATE COMPLICATION. PATHOLOGY PENDING. POST BIOPSY RIGHT 8 MALAYSIAN PIGTAIL CHEST TUBE PLACEMENT FOR PNEUMOTHORAX. IV CONSCIOUS SEDATION COMMENT: Quality ID 145: Final reports for procedures using fluoroscopy that document radiation exp osure indices, or exposure time and number of fluorographic images (if radiation exposure indices are not available) Patient medication list reviewed: Yes- Quality ID# [id number]:Eligible professional attests to documenting i n the medical record they obtained, updated, or reviewed the patient's current medications.. TECHNICAL DOCUMENTATION: JOB ID: [id number] Quality ID# [id number]: Final reports with documentation of one or more dose reduction techniques (e.g., Aut omated exposure control, adjustment of the mA and/or kV according to patient size, use of iterative r econstruction technique) 2010 [employer]- All Rights Reserved Reading location - IP/workstation name: [email or web address]
--- NOTE | 2018-11-04 16:00 | RADIOLOGY REPORT (SQ) ---
EXAM DESCRIPTION: CHEST SINGLE VIEW COMPLETED DATE/TIME: 11/04/2018 2:26 pm REASON FOR STUDY: LUNG CA --POST BIOPSY (2 HR FILM) COMPARISON: 11/04/2018 1217 hours EXAM PARAMETERS: NUMBER OF VIEWS: One view. TECHNIQUE: Single frontal radiographic view of the chest acquired. RADIATION DOSE: NA LIMITATIONS: None. FINDINGS: LUNGS AND PLEURA: No pneumothorax. Indwelling small caliber chest tube. Vague right uppe r lobe density stable. Left lung stable. MEDIASTINUM AND HILAR STRUCTURES: Tracheal deviation unchanged. HEART AND VASCULAR STRUCTURES: Heart normal in size. Normal vasculature. BONES: Right-sided rib fractures. HARDWARE: None in the chest. OTHER: No other significant finding. IMPRESSION: Small caliber indwelling right chest tube. No pneumothorax. TECHNICAL DOCUMENTATION: JOB ID: [id number] [employer]- All Rights Reserved Reading location - IP/workstation name: [email or web address]
== END ==
LOC: RAD 08:11
PROVIDERS: ATTEND Internal Medicine Medical Oncology
DX: C34.91 Malignant neoplasm of unspecified part of right bronchus or lung (principal); Z79.01 Long term (current) use of anticoagulants; Z79.899 Other long term (current) drug therapy; J44.9 Chronic obstructive pulmonary disease, unspecified; D50.0 Iron deficiency anemia secondary to blood loss (chronic); E13.649 Other specified diabetes mellitus with hypoglycemia without coma
CPT/HCPCS: 36415; 84520; 82565; 82947; 85027; 85610; 85730; 88342 ×2; 88341 ×2; 88305 ×2; 71045; 77012; 32405; C1729; C1894; J2250; J3010; J3490